=== PATIENT | male | born 1970 | race Caucasian/White ===

== ENCOUNTER 2016-07-05 19:20 | Emergency (ER) | payer OTHER ==
[~2016-07-05] VITALS: Ht 172.7 cm; Wt 112.0 kg
[~2016-07-05 19:20] MED LIST: ALPR1TAB7 PO; IBUP-1542 PO; ONDA4TAB14 PO; OXCA150T3 PO; QUET100T32 PO; TRAZ100T15 PO
[2016-07-05 19:35] VITALS: Ht 172.7 cm; Wt 112.0 kg
[2016-07-05] MEDS ORDERED: CIPR500T4 PO (19:51)
--- NOTE | 2016-07-05 19:56 | ERD ---
ER Documentation Chief Complaint Date/Time DATE: 07/05/16 TIME: 19:55 Chief Complaint urinary retention s/p surgery HPI This is a 45-year-old male who is here for urinary retention. The patient had colorectal surgery 2 days ago he has no abdominal pain or fever he says is having a difficult time urinating because of how much pain medicine he is taking. He says he is getting some urine out but has to push hard. No back pain no vomiting no diarrhea no fever no headache chest pain shortness of breath ROS All systems reviewed and are negative except as per history of present illness. Medications Home Meds Active Scripts Ciprofloxacin Hcl* (Ciprofloxacin Hcl*) 500 Mg Tablet, 500 MG PO BID for 3 Days , TAB Prov:KHLOE AVILES DO 07/05/16 Ondansetron (Ondansetron Odt) 4 Mg Tab.rapdis, 4 MG PO Q6H Y for NAUSEA AND/OR VOMITING, #30 TAB Prov:WAQAS MALDONADO MD 01/30/16 Ibuprofen* (Motrin*) 600 Mg Tab, 600 MG PO Q6H Y for PAIN AND OR ELEVATED TEMP, #30 TAB Prov:WAQAS MALDONADO MD 01/30/16 Reported Medications Quetiapine Fumarate* (Quetiapine Fumarate*) 100 Mg Tablet, 750 MG PO HS, TAB 01/30/16 Oxcarbazepine* (Trileptal*) 150 Mg Tablet, 450 MG PO BID, TAB 01/30/16 Alprazolam* (Alprazolam*) 1 Mg Tablet, 2 MG PO TID Y for ANXIETY, TAB 01/30/16 Trazodone Hcl* (Trazodone Hcl*) 100 Mg Tablet, 400 MG PO QHS, #30 TAB 09/16/15 Allergies Allergies: Coded Allergies: No Known Allergy (Unverified , 09/16/15) PMhx/Soc History of Surgery: Yes (Appy,Hemorrhoidectomy, colorectal sx) Anesthesia Reaction: No Hx Neurological Disorder: No Hx Respiratory Disorders: No Hx Cardiac Disorders: No Hx Psychiatric Problems: Yes (Manic-Depressive D/O;Anxiety) Hx Miscellaneous Medical Probl: Yes (Hemorrhoids) Hx Alcohol Use: No Hx Substance Use: No Hx Tobacco Use: Yes (>1 pack/day) Smoking Status: Current every day smoker FmHx Family History: No coronary disease Physical Exam Vitals Vital Signs Date Time Temp Pulse Resp B/P Pulse Ox O2 Delivery O2 Flow Rate FiO2 07/05/16 19:35 98.8 76 20 127/81 94 Physical Exam Const: Well-developed, well-nourished Head: Atraumatic, normocephalic Eyes: Normal Conjunctiva, PERRLA, EOMI, normal sclera, no nystagmus ENT: Normal External Ears, Nose and Mouth, moist mucus membranes. Neck: Full range of motion. No meningismus, no lymphadenopathy. Resp: Clear to auscultation bilaterally, no wheezing, rhonchi, rales Cardio: Regular rate and rhythm, no murmurs, S1 S2 present Abd: Soft, mild suprapubic fullness and tenderness, non distended. Normal bowel sounds, no guarding or rebound, no pulsitile abdominal masses or bruits Skin: No petechiae or rashes, no ecchymosis , no maculopapular rash Back: No midline or flank tenderness Ext: No cyanosis, or edema, FROM x 4, normal inspection, neurovascularly intact x 4 Neur: Awake and alert, STR 5/5 x 4, sensation intact x 4, no focal findings, cerebellum intact Psych: Normal Mood and Affect Procedures/MDM Menjivar catheter placed with leg bag Departure Diagnosis: Primary Impression: Retention of urine Condition: Stable Patient Instructions: Menjivar Catheter, Care, Urinary Retention, Male Referrals: DOCTOR,NOT ON STAFF (PCP) Additional Instructions: HAVE MENJIVAR REMOVED IN 2-3 DAYS KHLOE AVILES DO Jul 05, 2016 19:56
[2016-07-07] MEDS ORDERED: QUET300T18 PO (13:13)
[2016-07-07] MEDS ORDERED: TRAZ300T15 PO (13:14)
[2016-07-07] MEDS ORDERED: HYDR25SU23 PR (14:30)
[2016-07-07] MEDS ORDERED: HYDR-902 PO (14:30)
== END 2016-07-06 00:30 | disposition home or self-care (01) ==
LOC: FTE 19:20
DX: R33.9 Retention of urine, unspecified (principal); F17.210 Nicotine dependence, cigarettes, uncomplicated
CPT/HCPCS: 51702; Z7502

== ENCOUNTER 2016-07-07 10:50 | Emergency (ER) | payer OTHER ==
[~2016-07-07] VITALS: Ht 172.7 cm; Wt 120.0 kg
[~2016-07-07 10:50] MED LIST changes: +CIPR500T4 PO
[2016-07-07 11:11] VITALS: Ht 172.7 cm; Wt 120.0 kg
[2016-07-07] MEDS ORDERED: ONDANSETRON 4 MG INJ IV STA (12:00)
[2016-07-07] MEDS ORDERED: HYDROmorphONE 1 MG/ML SYG IV STA ×2 (12:00→13:01)
[2016-07-07 12:18] LABS: ADD SCAN DIFF NO
[2016-07-07 12:22] LABS: BASOPHILS % 0.4 % (0.0-2.0); EOSINOPHILS # 0.6 10^3/ul (0.0-0.5); EOSINOPHILS % 8.9 % (0.0-7.0); HEMATOCRIT 33.3 % (42.0-52.0); HEMOGLOBIN 11.1 g/dl (14.0-18.0); LYMPHOCYTES % 14.1 % (15.0-51.0); MEAN CORPUSCULAR HEMOGLOBIN 29.1 pg (29.0-33.0); MEAN CORPUSCULAR HGB CONC 33.3 g/dl (32.0-37.0); MEAN CORPUSCULAR VOLUME 87.2 fl (82.0-101.0); MEAN PLATELET VOLUME 10.7 fl (7.4-10.4); MONOCYTE # 0.6 10^3/ul (0.3-0.9); MONOCYTES % 8.2 % (0.0-11.0); NEUTROPHIL # 4.7 10^3/ul (1.6-7.5); PLATELET COUNT 237 10^3/UL (140-415); RED BLOOD COUNT 3.82 10^6/ul (4.70-6.10); RED CELL DISTRIBUTION WIDTH 14.5 % (11.5-14.5); WHITE BLOOD COUNT 6.9 10^3/ul (4.8-10.8)
[2016-07-07 12:37] LABS: ALBUMIN 3.8 g/dl (3.3-4.9); ALBUMIN/GLOBULIN RATIO 1.26; CALCIUM 8.6 mg/dl (8.4-10.2); CREATININE 0.99 mg/dl (0.61-1.24); TOTAL PROTEIN 6.8 g/dl (6.1-8.1)
[2016-07-07] MEDS ORDERED: QUET300T18 PO (13:13)
[2016-07-07] MEDS ORDERED: TRAZ300T15 PO (13:14)
[2016-07-07] MEDS ORDERED: IOHEXOL 300MG/ML 150 ML BTL ONE (13:22)
[2016-07-07] MEDS ORDERED: SOD CHLORIDE 0.9% 100 ML ONE (13:22)
--- NOTE | 2016-07-07 14:00 | RADRPT ---
PROCEDURE: CT Abdomen and Pelvis with contrast. CLINICAL INDICATION: Abdomen and pelvis pain. TECHNIQUE: CT scan of the abdomen and pelvis with contrast was performed. The patient was scanned following the uncomplicated intravenous administration of 100 cc of Omnipaque-300. Coronal and sag ittal reformatted images were obtained from the axial source images. Images were reviewed on a high- resolution PACS workstation. Total exam DLP is 1648.13 mGy-cm. CTDIvol is 23.15 mGy. One or more of the following dose reduction techniques were used: Automated exposure control, adjustment of the mA and/or kV according to patient size, use of iterative reconstruction technique. COMPARISON: Noncontrast CT scan of the abdomen and pelvis dated 01/30/2016 which demonstrated fatt y metamorphosis of the liver and no other abnormality. FINDINGS: The lung bases are normal. There is no pleural effusion. The liver is normal in size and diffusely decreased attenuation consistent with fatty metamorphosis. There is no focal hepatic lesion. The gallbladder and bile ducts are normal. The spleen is normal in size. There is no focal splenic lesion. Both adrenals are normal with no enlargement or mass. The pancreas is unremarkable with no mass or evidence of pancreatitis. Both kidneys demonstrate normal contrast enhancement. There is no renal mass or hydronephrosis. The abdominal aorta is not dilated. There is no retroperitoneal lymphadenopathy or mass. There is no pelvic lymphadenopathy or mass. There is a Lewis catheter in the urinary bladder. The periappendiceal region is unremarkable with no evidence of appendicitis. The bowel and mesentery are normal. A small amount of free fluid is present in the pelvis. There is no free air. The osseous structures are unremarkable with no fracture or lytic lesion. IMPRESSION: 1. Lewis catheter in the bladder. 2. Small amount of free fluid in the pelvis, nonspecific. Clinical correlation and follow-up advis ed. 3. Otherwise normal contrast enhanced CT scan of the abdomen and pelvis. RPTAT: QQ .Jerry Arellano MD, MD Date Time Electronically viewed and signed by .Jerry Arellano MD, on 07/07/2016 14:00 .R/
[2016-07-07 14:11] VITALS: BP 126/70; PULSE 68; RESP 18; TEMP 98.2
[2016-07-07] MEDS ORDERED: HYDR-902 PO (14:30)
[2016-07-07] MEDS ORDERED: HYDR25SU23 PR (14:30)
--- NOTE | 2016-07-07 14:46 | ERD ---
ER Documentation Chief Complaint Date/Time DATE: 07/07/16 TIME: 14:42 Chief Complaint S/P RECTAL SURGERY,SEVERE RECTAL PAIN.MENJIVAR CATH PROBLEM HPI This is a 45-year-old male who had anal fissure surgery along with a hemorrhoidectomy done 4 days ago. He was seen here by me 2 days ago for urinary retention and a Menjivar catheter was placed. Patient is here because his anus is hurting and burning and he says he is out of pain medication. She has no bleeding no fever no abdominal pain. The patient is passing gas but has not had a bowel movement yet. Is complaining of sharp and burning pain to the anus ROS All systems reviewed and are negative except as per history of present illness. Medications Home Meds Active Scripts Hydrocortisone Acetate (Anusol-Hc) 25 Mg Supp.rect, 1 SUPP NE BID, #12 SUPP.RECT Prov:KHLOE AVILES DO 07/07/16 Hydrocodone/Acetaminophen ([place] 10-325 Tablet) 1 Each Tablet, 1 TAB PO Q6H Y for PAIN, #20 TAB Prov:KHLOE AVILES DO 07/07/16 Ciprofloxacin Hcl* (Ciprofloxacin Hcl*) 500 Mg Tablet, 500 MG PO BID for 3 Days , TAB Prov:KHLOE AVILES DO 07/05/16 Ondansetron (Ondansetron Odt) 4 Mg Tab.rapdis, 4 MG PO Q6H Y for NAUSEA AND/OR VOMITING, #30 TAB Prov:WAQAS MALDONADO MD 01/30/16 Ibuprofen* (Motrin*) 600 Mg Tab, 600 MG PO Q6H Y for PAIN AND OR ELEVATED TEMP, #30 TAB Prov:WAQAS MALDONADO MD 01/30/16 Reported Medications Trazodone Hcl* (Trazodone Hcl*) 300 Mg Tablet, 300 MG PO QHS, #30 TAB 07/07/16 Quetiapine Fumarate* (Quetiapine Fumarate*) 300 Mg Tablet, 600 MG PO QHS, TAB 07/07/16 Oxcarbazepine* (Trileptal*) 150 Mg Tablet, 450 MG PO BID, TAB 01/30/16 Alprazolam* (Alprazolam*) 1 Mg Tablet, 2 MG PO TID Y for ANXIETY, TAB 01/30/16 Discontinued Reported Medications Quetiapine Fumarate* (Quetiapine Fumarate*) 100 Mg Tablet, 750 MG PO HS, TAB 01/30/16 Trazodone Hcl* (Trazodone Hcl*) 100 Mg Tablet, 400 MG PO QHS, #30 TAB 09/16/15 Allergies Allergies: Coded Allergies: No Known Allergy (Unverified , 07/07/16) PMhx/Soc History of Surgery: Yes (Appy,Hemorrhoidectomy, colorectal sx) Anesthesia Reaction: No Hx Neurological Disorder: No Hx Respiratory Disorders: No Hx Cardiac Disorders: No Hx Psychiatric Problems: Yes (Manic-Depressive D/O;Anxiety) Hx Miscellaneous Medical Probl: Yes (Hemorrhoids) Hx Alcohol Use: No Hx Substance Use: No Hx Tobacco Use: Yes (>1 pack/day) Smoking Status: Current every day smoker FmHx Family History: No coronary disease Physical Exam Vitals Vital Signs Date Time Temp Pulse Resp B/P Pulse Ox O2 Delivery O2 Flow Rate FiO2 07/07/16 11:11 98.2 78 18 131/76 98 Physical Exam Const: Well-developed, well-nourished Head: Atraumatic, normocephalic Eyes: Normal Conjunctiva, PERRLA, EOMI, normal sclera, no nystagmus ENT: Normal External Ears, Nose and Mouth, moist mucus membranes. Neck: Full range of motion. No meningismus, no lymphadenopathy. Resp: Clear to auscultation bilaterally, no wheezing, rhonchi, rales Cardio: Regular rate and rhythm, no murmurs, S1 S2 present Abd: Soft, non tender x 4, non distended. Normal bowel sounds, no guarding or rebound, no pulsitile abdominal masses or bruits, anus has no hemorrhoid no erythema there is a surgical repair of the fissure which is clean dry and intact there is no bleeding no sign of cellulitis Skin: No petechiae or rashes, no ecchymosis , no maculopapular rash Back: No midline or flank tenderness Ext: No cyanosis, or edema, FROM x 4, normal inspection, neurovascularly intact x 4 Neur: Awake and alert, STR 5/5 x 4, sensation intact x 4, no focal findings, cerebellum intact Psych: Normal Mood and Affect Result Diagram: 07/07/16 1212 07/07/16 1212 Results 24 hrs Laboratory Tests Test 07/07/16 12:12 White Blood Count 6.910^3/ul Red Blood Count 3.8210^6/ul Hemoglobin 11.1g/dl Hematocrit 33.3% Mean Corpuscular Volume 87.2fl Mean Corpuscular Hemoglobin 29.1pg Mean Corpuscular Hemoglobin Concent 33.3g/dl Red Cell Distribution Width 14.5% Platelet Count 88332^3/UL Mean Platelet Volume 10.7fl Neutrophils % 68.0% Lymphocytes % 14.1% Monocytes % 8.2% Eosinophils % 8.9% Basophils % 0.4% Nucleated Red Blood Cells % 0.0/100WBC Neutrophils # 4.710^3/ul Lymphocytes # 1.010^3/ul Monocytes # 0.610^3/ul Eosinophils # 0.610^3/ul Basophils # 0.010^3/ul Nucleated Red Blood Cells # 0.010^3/ul Sodium Level 137mmol/L Potassium Level 4.0mmol/L Chloride Level 104mmol/L Carbon Dioxide Level 27mmol/L Anion Gap 10 Blood Urea Nitrogen 5mg/dl Creatinine 0.99mg/dl Glucose Level 82mg/dl Calcium Level 8.6mg/dl Total Bilirubin 0.0mg/dl Direct Bilirubin 0.00mg/dl Indirect Bilirubin 0.0mg/dl Aspartate Amino Transf (AST/SGOT) 21IU/L Alanine Aminotransferase (ALT/SGPT) 29IU/L Alkaline Phosphatase 121IU/L Total Protein 6.8g/dl Albumin 3.8g/dl Globulin 3.00g/dl Albumin/Globulin Ratio 1.26 Current Medications Medications (Trade) Dose Ordered Sig/Karl Route PRN Reason Start Time Stop Time Status Last Admin Dose Admin Hydromorphone HCl (Dilaudid) 2 mg ONCE STAT IV 07/07/16 12:00 07/07/16 12:02 DC 07/07/16 12:08 Ondansetron HCl (Zofran Inj) 4 mg ONCE STAT IV 07/07/16 12:00 07/07/16 12:02 DC 07/07/16 12:09 Hydromorphone HCl (Dilaudid) 1 mg ONCE STAT IV 07/07/16 13:01 07/07/16 13:02 DC 07/07/16 13:09 IV Flush 10 ml 10 ml STK-MED ONCE .ROUTE 07/07/16 13:22 07/07/16 13:23 DC 07/07/16 14:10 Sodium Chloride (NS) 100 ml @ ud STK-MED ONCE .ROUTE 07/07/16 13:22 07/07/16 13:23 DC 07/07/16 14:10 Iohexol (Omnipaque 300mg/ ml) 150 ml STK-MED ONCE .ROUTE 07/07/16 13:22 07/07/16 13:23 DC 07/07/16 14:11 Procedures/MDM PROCEDURE: CT Abdomen and Pelvis with contrast. CLINICAL INDICATION: Abdomen and pelvis pain. TECHNIQUE: CT scan of the abdomen and pelvis with contrast was performed. The patient was scanned following the uncomplicated intravenous administration of 100 cc of Omnipaque-300. Coronal and sagittal reformatted images were obtained from the axial source images. Images were reviewed on a high- resolution PACS workstation. Total exam DLP is 1648.13 mGy-cm. CTDIvol is 23.15 mGy. One or more of the following dose reduction techniques were used: Automated exposure control, adjustment of the mA and/or kV according to patient size, use of iterative reconstruction technique. COMPARISON: Noncontrast CT scan of the abdomen and pelvis dated 01/30/2016 which demonstrated fatty metamorphosis of the liver and no other abnormality. FINDINGS: The lung bases are normal. There is no pleural effusion. The liver is normal in size and diffusely decreased attenuation consistent with fatty metamorphosis. There is no focal hepatic lesion. The gallbladder and bile ducts are normal. The spleen is normal in size. There is no focal splenic lesion. Both adrenals are normal with no enlargement or mass. The pancreas is unremarkable with no mass or evidence of pancreatitis. Both kidneys demonstrate normal contrast enhancement. There is no renal mass or hydronephrosis. The abdominal aorta is not dilated. There is no retroperitoneal lymphadenopathy or mass. There is no pelvic lymphadenopathy or mass. There is a Menjivar catheter in the urinary bladder. The periappendiceal region is unremarkable with no evidence of appendicitis. The bowel and mesentery are normal. A small amount of free fluid is present in the pelvis. There is no free air. The osseous structures are unremarkable with no fracture or lytic lesion. IMPRESSION: 1. Menjivar catheter in the bladder. 2. Small amount of free fluid in the pelvis, nonspecific. Clinical correlation and follow-up advised. 3. Otherwise normal contrast enhanced CT scan of the abdomen and pelvis. RPTAT: QQ .Jerry Arellano MD, Date Time Electronically viewed and signed by .Jerry Arellano MD, on 07/07/2016 14:00 .R/ CC: KHLOE AVILES DO Patient shows no sign of superficial abscess or perianal infection or perirectal abscess Will DC the patient's Menjivra catheter We will give the patient some Anusol suppositories as well as topical viscous lidocaine and refill of [place]. Advised him to take magnesium citrate [id number] to help him have a watery bowel movement, otherwise she is going to have an issue with tearing of the surgical suture Departure Diagnosis: Primary Impression: Post-op pain Additional Impression: Anal fissure Condition: Stable Patient Instructions: Anal Fissure (Child), Post Op Wound Check, General, Post Op Wound Check, Pain KHLOE AVILES DO Jul 07, 2016 14:46
== END 2016-07-07 15:15 | disposition home or self-care (01) ==
LOC: E/R 10:50
DX: G89.18 Other acute postprocedural pain (principal); K60.2 Anal fissure, unspecified; F17.210 Nicotine dependence, cigarettes, uncomplicated
CPT/HCPCS: 74177; 80053; 85025; J1170; J2405; Q9967; Z7610; 36415; 96374; 96375; 96376

== ENCOUNTER 2016-07-13 13:44 | Emergency (ER) | payer OTHER ==
[~2016-07-13] VITALS: Ht 170.2 cm; Wt 80.0 kg
[~2016-07-13 13:44] MED LIST changes: +HYDR-902 PO; +HYDR25SU23 PR; -QUET100T32 PO; +QUET300T18 PO; -TRAZ100T15 PO; +TRAZ300T15 PO
[2016-07-13 13:48] VITALS: Ht 170.2 cm; Wt 80.0 kg
[2016-07-13] MEDS ORDERED: SOD CHLORIDE 0.9% 1,000 ML IV STA (18:42)
[2016-07-13] MEDS ORDERED: ONDANSETRON 4 MG INJ IV STA (18:42)
[2016-07-13] MEDS ORDERED: morphine 4 MG/ML VIAL IV STA (18:42)
[2016-07-13 19:04] LABS: ADD SCAN DIFF NO
[2016-07-13 19:07] LABS: BASOPHIL # 0.1 10^3/ul (0.0-0.1); BASOPHILS % 1.2 % (0.0-2.0); EOSINOPHILS # 0.3 10^3/ul (0.0-0.5); EOSINOPHILS % 5.6 % (0.0-7.0); HEMATOCRIT 35.4 % (42.0-52.0); HEMOGLOBIN 11.8 g/dl (14.0-18.0); LYMPHOCYTES % 18.8 % (15.0-51.0); MEAN CORPUSCULAR HEMOGLOBIN 28.9 pg (29.0-33.0); MEAN CORPUSCULAR HGB CONC 33.3 g/dl (32.0-37.0); MEAN CORPUSCULAR VOLUME 86.6 fl (82.0-101.0); MEAN PLATELET VOLUME 11.1 fl (7.4-10.4); MONOCYTE # 0.7 10^3/ul (0.3-0.9); MONOCYTES % 12.8 % (0.0-11.0); NEUTROPHIL # 3.2 10^3/ul (1.6-7.5); NEUTROPHILS % 61.2 % (39.0-77.0); PLATELET COUNT 242 10^3/UL (140-415); RED BLOOD COUNT 4.09 10^6/ul (4.70-6.10); RED CELL DISTRIBUTION WIDTH 14.5 % (11.5-14.5); WHITE BLOOD COUNT 5.2 10^3/ul (4.8-10.8)
[2016-07-13 19:21] LABS: ALBUMIN 4.3 g/dl (3.3-4.9); CHLORIDE 102 mmol/L (97-110)
[2016-07-13 19:22] LABS: POTASSIUM 3.8 mmol/L (3.5-5.1); SODIUM 137 mmol/L (135-144)
[2016-07-13 19:23] LABS: PARTIAL THROMBOPLASTIN TIME 23.6 Sec (25.0-35.0)
[2016-07-13 19:24] LABS: ALBUMIN/GLOBULIN RATIO 1.38; ANION GAP 15 (8-16); ASPARTATE AMINO TRANSFERASE 23 IU/L (15-46); CARBON DIOXIDE 24 mmol/L (21-31); CREATININE 0.99 mg/dl (0.61-1.24); TOTAL PROTEIN 7.4 g/dl (6.1-8.1)
[2016-07-13 19:25] LABS: ALANINE AMINOTRANSFERASE 31 IU/L (13-69); ALKALINE PHOSPHATASE 108 IU/L (42-121); BLOOD UREA NITROGEN 12 mg/dl (7-20); CALCIUM 8.8 mg/dl (8.4-10.2); GLUCOSE 87 mg/dl (70-220)
[2016-07-13 19:27] LABS: INR 0.83; PROTIME 11.4 Sec (12.2-14.2); PT RATIO 0.9
--- NOTE | 2016-07-13 19:51 | RADRPT ---
PROCEDURE: CT brain without contrast CLINICAL INDICATION: Syncope TECHNIQUE: A CT of the brain was performed utilizing axial sections from the skull base through th e vertex without contrast. Sagittal and coronal images were also reformatted. The exam CTDIvol = 44. 68 mGy and DLP = 810.25 mGy-cm. COMPARISON: None available FINDINGS: No acute intracranial hemorrhage is identified. There is no mass effect or midline shift. No extra -axial fluid collection is seen. The ventricles and sulci are within normal limits for size and con figuration. The density of the brain is within normal limits. Calderón-white differentiation is preser shalini. The osseous structures are unremarkable for acute abnormality. Chronic appearing mucosal thickening of the right greater than left ethmoid air cells and maxillary sinuses as well as the right frontal sinus. The sphenoid sinuses and mastoid air cells appear clear. Or old left medial orbital wall b lowout fracture versus congenital dehiscence is present RPTAT:HJJR IMPRESSION: 1. No evidence of acute intracranial abnormality or mass effect. 2. Chronic paranasal sinus disease. 3. Likely old left medial orbital wall blowout fracture versus congenital dehiscence. Physician Leon Date Time Electronically viewed and signed by Physician Leon on 07/13/2016 19:51 /
[2016-07-13 19:59] LABS: TROPONIN-I < 0.012 ng/ml (0.00-0.12)
[2016-07-13 21:36] LABS: ADD UMIC NO; URINE BILIRUBIN (Dip) NEGATIVE (NEGATIVE); URINE BLOOD (Dip) NEGATIVE (NEGATIVE); URINE COLOR LT. YELLOW (YELLOW); URINE GLUCOSE (Dip) NEGATIVE (NEGATIVE); URINE KETONES (Dip) NEGATIVE (NEGATIVE); URINE LEUKOCYTE ESTERASE (Dip) NEGATIVE (NEGATIVE); URINE NITRITE (Dip) NEGATIVE (NEGATIVE); URINE TOTAL PROTEIN (Dip) NEGATIVE (NEGATIVE); URINE UROBILINOGEN (Dip) 0.2 E.U./dL (0.1-1.0)
[2016-07-13 21:40] VITALS: BP 132/77; PULSE 83; RESP 18; TEMP 98.1
[2016-07-13] MEDS ORDERED: KETOROLAC 30 MG INJ IV STA (21:48)
[2016-07-13] MEDS ORDERED: HYDR-906 PO (21:51)
--- NOTE | 2016-07-13 22:00 | ERD ---
ER Documentation Chief Complaint Date/Time DATE: 07/13/16 TIME: 21:55 Chief Complaint blurry vision, falling at home since yesterday HPI This is a 45-year-old male who states he has anal fissure surgery along with a hemorrhoidectomy done 7 days ago. The patient indicates he had been placed on [place] which improved his rectal pain. Indicates he ran out of his [place] and is requesting medication refill. He denies any constipation states he has had no rectal bleeding. The patient also indicates that due to the pain he is felt unsteady in his gait but denies a headache. He states he noticed some blurry vision that lasted for several minutes just prior to arrival but spontaneously resolved he does not wear glasses or contacts. He denies any neck pain. He has had no fevers no shaking or chills. He has no shortness of breath at rest or exertion. He denies any chest pain or pressure that radiates to the neck arm back or jaw. ROS All systems reviewed and are negative except as per history of present illness. Medications Home Meds Active Scripts Hydrocodone/Acetaminophen ([place] 5-325 Tablet) 1 Each Tablet, 1 TAB PO Q6H Y for PAIN, #20 TAB Prov:BLAKE RICARDO 07/13/16 Reported Medications Trazodone Hcl* (Trazodone Hcl*) 300 Mg Tablet, 300 MG PO QHS, #30 TAB 07/07/16 Quetiapine Fumarate* (Quetiapine Fumarate*) 300 Mg Tablet, 600 MG PO QHS, TAB 07/07/16 Oxcarbazepine* (Trileptal*) 150 Mg Tablet, 450 MG PO BID, TAB 01/30/16 Alprazolam* (Alprazolam*) 1 Mg Tablet, 2 MG PO TID Y for ANXIETY, TAB 01/30/16 Discontinued Reported Medications Quetiapine Fumarate* (Quetiapine Fumarate*) 100 Mg Tablet, 750 MG PO HS, TAB 01/30/16 Trazodone Hcl* (Trazodone Hcl*) 100 Mg Tablet, 400 MG PO QHS, #30 TAB 09/16/15 Discontinued Scripts Hydrocortisone Acetate (Anusol-Hc) 25 Mg Supp.rect, 1 SUPP TN BID, #12 SUPP.RECT Prov:KHLOE AVILES DO 07/07/16 Hydrocodone/Acetaminophen ([place] 10-325 Tablet) 1 Each Tablet, 1 TAB PO Q6H Y for PAIN, #20 TAB Prov:TRACIKHLOE ThompsonYanni DO 07/07/16 Ciprofloxacin Hcl* (Ciprofloxacin Hcl*) 500 Mg Tablet, 500 MG PO BID for 3 Days , TAB Prov:KHLOE AVILES DO 07/05/16 Ondansetron (Ondansetron Odt) 4 Mg Tab.rapdis, 4 MG PO Q6H Y for NAUSEA AND/OR VOMITING, #30 TAB Prov:WAQAS MALDONADO MD 01/30/16 Ibuprofen* (Motrin*) 600 Mg Tab, 600 MG PO Q6H Y for PAIN AND OR ELEVATED TEMP, #30 TAB Prov:WAQAS MALDONADO MD 01/30/16 Allergies Allergies: Coded Allergies: No Known Allergy (Unverified , 07/13/16) PMhx/Soc History of Surgery: Yes (Appy,Hemorrhoidectomy, colorectal sx) Anesthesia Reaction: No Hx Neurological Disorder: No Hx Respiratory Disorders: No Hx Cardiac Disorders: Yes ('somethign wrong with my heart' cant articulate) Hx Psychiatric Problems: Yes (Manic-Depressive D/O;bipolar, Anxiety) Hx Miscellaneous Medical Probl: Yes (Hemorrhoids, cholesterol.) Hx Alcohol Use: No Hx Substance Use: No Hx Tobacco Use: Yes (>1 pack/day) Smoking Status: Current every day smoker Physical Exam Vitals Vital Signs Date Time Temp Pulse Resp B/P Pulse Ox O2 Delivery O2 Flow Rate FiO2 07/13/16 21:40 98.1 83 18 132/77 97 Room Air 07/13/16 20:00 69 15 114/78 95 Room Air 07/13/16 18:36 98.0 77 20 126/90 97 Room Air 07/13/16 13:48 97.8 78 20 116/51 97 Physical Exam Constitutional:Well-developed. Well-nourished. HEENT:Normocephalic. Atraumatic.Pupils were equal round reactive to light. Moist mucous membranes.No tonsillar exudates. Fundoscopy exam shows sharp optic disks bilaterally and venous pulsations are present. Neck: No nuchal rigidity. No lymphadenopathy. No posterior cervical spine tenderness or step-offs. Respiratory: Not using accessory muscles of respiration.Lungs were clear to auscultation bilaterally. No rhonchi. No rales. No wheezing. Cardiovascular: Regular rate regular rhythm.No murmurs. No rubs were appreciated.S1, S2 normal. Distal pulses are palpable 2+ bilaterally. GI: Abdomen was soft. Nontender. Non Distended. No pulsatile abdominal masses or bruits. No rebound. No guarding. Bowel sounds were present and normal. Muscle skeletal: Full range of motion of both the upper and lower extremities bilaterally.Normal muscle tone.No assymetrical calf tenderness or swelling. RECTAL: External nonthrombosed hemorrhoids present at the 3 o'clock position and 6 o'clock position with sutures in place. Fecal occult blood test was negative. Skin: No petechia, no purpura. No lesions on the palms or the soles of the feet. No maculopapular rash. NEURO: Patient was alert, awake, orientated x3.No facial droop. Gait observed and normal with no ataxia.Speech had regular rate and rhythm. No focal neurological deficits. Result Diagram: 07/13/16184907/[id number]/161849 Results 24 hrs Laboratory Tests Test 07/13/16 18:50 07/13/16 21:20 White Blood Count 5.210^3/ul Red Blood Count 4.0910^6/ul Hemoglobin 11.8g/dl Hematocrit 35.4% Mean Corpuscular Volume 86.6fl Mean Corpuscular Hemoglobin 28.9pg Mean Corpuscular Hemoglobin Concent 33.3g/dl Red Cell Distribution Width 14.5% Platelet Count 06172^3/UL Mean Platelet Volume 11.1fl Neutrophils % 61.2% Lymphocytes % 18.8% Monocytes % 12.8% Eosinophils % 5.6% Basophils % 1.2% Nucleated Red Blood Cells % 0.0/100WBC Neutrophils # 3.210^3/ul Lymphocytes # 1.010^3/ul Monocytes # 0.710^3/ul Eosinophils # 0.310^3/ul Basophils # 0.110^3/ul Nucleated Red Blood Cells # 0.010^3/ul Prothrombin Time 11.4Sec Prothrombin Time Ratio 0.9 INR International Normalized Ratio 0.83 Activated Partial Thromboplast Time 23.6Sec Sodium Level 137mmol/L Potassium Level 3.8mmol/L Chloride Level 102mmol/L Carbon Dioxide Level 24mmol/L Anion Gap 15 Blood Urea Nitrogen 12mg/dl Creatinine 0.99mg/dl Glucose Level 87mg/dl Calcium Level 8.8mg/dl Total Bilirubin 0.0mg/dl Direct Bilirubin 0.00mg/dl Indirect Bilirubin 0.0mg/dl Aspartate Amino Transf (AST/SGOT) 23IU/L Alanine Aminotransferase (ALT/SGPT) 31IU/L Alkaline Phosphatase 108IU/L Troponin I < 0.012ng/ml Total Protein 7.4g/dl Albumin 4.3g/dl Globulin 3.10g/dl Albumin/Globulin Ratio 1.38 Urine Color LT. YELLOW Urine Clarity CLEAR Urine pH 6.5 Urine Specific [place] 1.015 Urine Ketones NEGATIVE Urine Nitrite NEGATIVE Urine Bilirubin NEGATIVE Urine Urobilinogen 0.2 E.U./dL Urine Leukocyte Esterase NEGATIVE Urine Hemoglobin NEGATIVE Urine Glucose NEGATIVE% Urine Total Protein NEGATIVE Current Medications Medications (Trade) Dose Ordered Sig/Karl Route PRN Reason Start Time Stop Time Status Last Admin Dose Admin Sodium Chloride (NS) 1,000 ml @ 1,000 mls/hr Q1H STAT IV 07/13/16 18:42 07/13/16 19:41 DC 07/13/16 19:01 Morphine Sulfate (morphine) 4 mg ONCE STAT IV 07/13/16 18:42 07/13/16 18:43 DC 07/13/16 19:00 Ondansetron HCl (Zofran Inj) 4 mg ONCE STAT IV 07/13/16 18:42 07/13/16 18:43 DC 07/13/16 19:00 Ketorolac Tromethamine (Toradol) 30 mg ONCE STAT IV 07/13/16 21:48 07/13/16 21:49 DC Procedures/[facility] This patient presented to the emergency department for postoperative pain. He had no physical exam findings to suggest rectal hemorrhage. The patient was very adamant about requesting analgesic medication therefore was given IV morphine as well as Toradol. I obtained ancillary laboratory work and there is no electrolyte abnormalities and no evidence of leukocytosis. Also obtained a CT scan of the head given that the patient was complaining of blurry vision and there is no evidence of acute intracerebral hemorrhage mass-effect or midline shift. 12 Lead EKG tracing ordered and reviewed by myself showed: Normal sinus rhythm of 70 bpm and no arrhythmia. TN interval normal. QRS duration normal. No ST segment elevation No ST segment depression. No changes consistent with acute ischemia. Observation Note: Time: 4 hours Family Hx: No Hypertension Evaluation: Multiple exams showed improving symptoms and no evidence of postoperative hemorrhage. Departure Diagnosis: Primary Impression: Postoperative pain Additional Impressions: External hemorrhoids Medication refill Condition: Fair Patient Instructions: Hemorrhoids [facility] ([facility]P) BLAKE RICARDO Jul 13, 2016 22:00
== END 2016-07-13 21:50 | disposition home or self-care (01) ==
LOC: E/R 13:44
DX: G89.18 Other acute postprocedural pain (principal); K64.4 Residual hemorrhoidal skin tags; F17.210 Nicotine dependence, cigarettes, uncomplicated; R55 Syncope and collapse; Z76.0 Encounter for issue of repeat prescription
CPT/HCPCS: 70450; 80053; 81003; 84484; 85025; 85610; 85730; 93005; J1885; J2270; J2405; J7030; 36415; 96374; 96375

== ENCOUNTER 2016-07-26 09:27 | Emergency (ER) | payer OTHER ==
[~2016-07-26] VITALS: Wt 105.0 kg
[~2016-07-26 09:27] MED LIST changes: -CIPR500T4 PO; -HYDR-902 PO; +HYDR-906 PO; -HYDR25SU23 PR; -IBUP-1542 PO; -ONDA4TAB14 PO
--- NOTE | 2016-07-26 11:41 | RADRPT ---
PROCEDURE: XR Chest. CLINICAL INDICATION: Altered mental status. TECHNIQUE: PA and Lateral views of the chest were obtained. COMPARISON: Chest x-ray January 30, 2016. FINDINGS: The soft tissues are normal. There are degenerative osteophytes in the lower thoracic spine. The h eart is enlarged. The cardiomediastinal silhouette and hilar structures are normal. The pulmonary v asculature is normal. There is a left-sided aorta. The lungs are clear. The costophrenic angles are normal. IMPRESSION: 1. Mild cardiomegaly with no evidence of active cardiopulmonary disease. no significant changes not ed when compared to 01/30/2016. RPTAT:AAJJ Physician Kelly Date Time Electronically viewed and signed by Yoel Tucker Physician on 07/26/2016 11:40 GALINA/
--- NOTE | 2016-07-26 11:43 | RADRPT ---
PROCEDURE: XR Abdomen. CLINICAL INDICATION: Abdominal Pain TECHNIQUE: AP abdomen x-ray. COMPARISON: None. FINDINGS: There is a nonspecific bowel gas pattern with no evidence of a mechanical bowel obstruction. Air is identified in the colon and small bowel. The bony elements are normal. No abnormal intra-abdominal mass or calcification is identified. IMPRESSION: 1. Unremarkable abdomen radiograph. RPTAT:AAJJ Physician Kelly Date Time Electronically viewed and signed by Yoel Tucker Physician on 07/26/2016 11:43 GALINA/
[2016-07-26 11:49] LABS: ADD UMIC NO; URINE BILIRUBIN (Dip) NEGATIVE (NEGATIVE); URINE BLOOD (Dip) NEGATIVE (NEGATIVE); URINE COLOR LT. YELLOW (YELLOW); URINE GLUCOSE (Dip) NEGATIVE (NEGATIVE); URINE KETONES (Dip) NEGATIVE (NEGATIVE); URINE LEUKOCYTE ESTERASE (Dip) NEGATIVE (NEGATIVE); URINE NITRITE (Dip) NEGATIVE (NEGATIVE); URINE TOTAL PROTEIN (Dip) NEGATIVE (NEGATIVE); URINE UROBILINOGEN (Dip) 0.2 E.U./dL (0.1-1.0)
[2016-07-26 12:18] LABS: ADD SCAN DIFF NO
[2016-07-26 12:34] LABS: BASOPHILS % 0.5 % (0.0-2.0); EOSINOPHILS # 0.1 10^3/ul (0.0-0.5); EOSINOPHILS % 1.3 % (0.0-7.0); HEMATOCRIT 43.1 % (42.0-52.0); HEMOGLOBIN 14.1 g/dl (14.0-18.0); LYMPHOCYTES # 1.3 10^3/ul (0.8-2.9); LYMPHOCYTES % 15.2 % (15.0-51.0); MEAN CORPUSCULAR HEMOGLOBIN 28.8 pg (29.0-33.0); MEAN CORPUSCULAR HGB CONC 32.7 g/dl (32.0-37.0); MEAN PLATELET VOLUME 11.6 fl (7.4-10.4); MONOCYTE # 0.7 10^3/ul (0.3-0.9); NEUTROPHIL # 6.1 10^3/ul (1.6-7.5); NEUTROPHILS % 73.9 % (39.0-77.0); PLATELET COUNT 279 10^3/UL (140-415); RED CELL DISTRIBUTION WIDTH 14.2 % (11.5-14.5); WHITE BLOOD COUNT 8.2 10^3/ul (4.8-10.8)
[2016-07-26 12:52] LABS: ALBUMIN 4.6 g/dl (3.3-4.9); ALBUMIN/GLOBULIN RATIO 1.31; BILIRUBIN,INDIRECT 0.2 mg/dl (0-1.1); BILIRUBIN,TOTAL 0.2 mg/dl (0.2-1.3); CALCIUM 9.4 mg/dl (8.4-10.2); CREATININE 0.96 mg/dl (0.61-1.24); POTASSIUM 4.4 mmol/L (3.5-5.1); TOTAL PROTEIN 8.1 g/dl (6.1-8.1)
[2016-07-26 12:57] LABS: ACETAMINOPHEN < 10.0 ug/ml (10.0-30.0); ETHANOL < 10.0 mg/dl; SALICYLATE < 1.0 mg/dl (5.0-30.0)
[2016-07-26 13:02] LABS: BENZODIAZEPINES Negative (NEGATIVE)
[2016-07-26 13:03] LABS: OPIATES Negative (NEGATIVE)
[2016-07-26 13:12] LABS: BARBITURATES Negative (NEGATIVE); CANNABINOIDS Positive (NEGATIVE); COCAINE Negative (NEGATIVE)
[2016-07-26] MEDS ORDERED: LORAZEPAM 2 MG INJ IV ONE (13:30)
--- NOTE | 2016-07-26 13:37 | RADRPT ---
PROCEDURE: CT Brain without contrast. CLINICAL INDICATION: Altered level of consciousness. TECHNIQUE: A CT of the brain without contrast was performed utilizing axial sections from the skul l base through the vertex. The patient was scanned without intravenous contrast enhancement. Sagitta l and coronal reformatted images were obtained using the data from the axial images. Total exam DLP is 720.23 mGy-cm. CTDIvol is 42.69 mGy. One or more of the following dose reduction techniques we re used: Automated exposure control, adjustment of the mA and/or kV according to patient size, use o f iterative reconstruction technique. COMPARISON: None available FINDINGS: There is normal ellis-white matter differentiation. The ventricles and cisterns are normal. There is no intracranial hemorrhage or space-occupying lesion. There is no skull fracture or lytic lesion. There is fluid and mucosal thickening in the right maxil torsten sinus. IMPRESSION: 1. Right maxillary sinus disease. 2. Otherwise normal noncontrast CT scan of the brain. 3. No intracranial hemorrhage. RPTAT: QQ .Jerry Arellano MD, MD Date Time Electronically viewed and signed by .Jerry Arellano MD, on 07/26/2016 13:37 .R/
[2016-07-26] MEDS ORDERED: NICOTINE (21 MG/24 HR) PATCH TRANSDERM ONE (14:00)
--- NOTE | 2016-07-26 14:22 | ERA ---
ER Documentation Chief Complaint Date/Time DATE: 07/26/16 TIME: 09:40 Chief Complaint more aloc per mother this am. no trauma. pt is alert with no active bleedin HPI 45-year-old male with history of bipolar disease noncompliant with medications, recent anal fissure surgery and subsequent ED visits for urinary retention brought to the ED by rescue ambulance for evaluation of altered mental status. History is limited due to the patient's physical condition and provided by his girlfriend who arrived several hours later. Patient has been noncompliant with his medications and recently has not been himself. He fell at home today. He has not been complaining of chest pain, abdominal pain or shortness of breath. No vomiting or diarrhea. Apparently yesterday he was urinating without difficulty. No fevers. Patient is unable to provide any other history and just lies on the gurney screaming. He was last seen in the ED 07/13 with chief complaint of blurred vision and falling at home. He had extensive evaluation including a CT of the brain that was negative and was discharged home with a diagnosis of postoperative pain. ROS All systems reviewed and are negative except as per history of present illness. Medications Home Meds Reported Medications Trazodone Hcl* (Trazodone Hcl*) 300 Mg Tablet, 300 MG PO QHS, #30 TAB 07/07/16 Quetiapine Fumarate* (Quetiapine Fumarate*) 300 Mg Tablet, 600 MG PO QHS, TAB 07/07/16 Oxcarbazepine* (Trileptal*) 150 Mg Tablet, 450 MG PO BID, TAB 01/30/16 Alprazolam* (Alprazolam*) 1 Mg Tablet, 2 MG PO TID Y for ANXIETY, TAB 01/30/16 Discontinued Scripts Hydrocodone/Acetaminophen ([place] 5-325 Tablet) 1 Each Tablet, 1 TAB PO Q6H Y for PAIN, #20 TAB Prov:BLAKE RICARDO 07/13/16 Allergies Allergies: Coded Allergies: No Known Allergy (Unverified , 07/26/16) PMhx/Soc Reviewed in chart. As per HPI. Medical and Surgical Hx: Unable to obtain History of Surgery: Yes ([place],Hemorrhoidectomy, colorectal sx) Anesthesia Reaction: No Hx Neurological Disorder: No Hx Respiratory Disorders: No Hx Cardiac Disorders: Yes ('somethign wrong with my heart' cant articulate) Hx Psychiatric Problems: Yes (Manic-Depressive D/O;bipolar, Anxiety) Hx Miscellaneous Medical Probl: Yes (Hemorrhoids, cholesterol.) Hx Alcohol Use: No Hx Substance Use: Yes (MJ) Hx Tobacco Use: Yes Smoking Status: Current every day smoker FmHx Unknown reviewed in chart. Physical Exam Vitals Vital Signs Date Time Temp Pulse Resp B/P Pulse Ox O2 Delivery O2 Flow Rate FiO2 07/26/16 16:45 85 15 130/109 99 Room Air 07/26/16 13:10 79 22 154/126 100 Room Air 07/26/16 12:56 84 17 159/104 100 Room Air 07/26/16 09:40 99.5 80 22 178/100 98 Physical Exam Const: Alert, agitated, moaning, uncooperative Head: Atraumatic Eyes: Normal Conjunctiva ENT: Normal External Ears, Nose and Mouth. Neck: Full range of motion. Nontender Resp: Clear to auscultation bilaterally Cardio: Regular rate and rhythm, no murmurs Abd: Soft, mild suprapubic tenderness and distention. Normal bowel sounds. No rebound or guarding. non distended. Normal bowel sounds Skin: No petechiae or rashes Back: No midline or flank tenderness Ext: No cyanosis, or edema Neur: Awake and alert. No facial droop. Moves all extremities with 5/5 strength. Psych: Uncooperative, agitated. Result Diagram: 07/26/16 1200 07/26/16 1200 Results 24 hrs Laboratory Tests Test 07/26/16 10:00 07/26/16 12:00 Urine Color LT. YELLOW Urine Clarity CLEAR Urine pH 6.5 Urine Specific [place] 1.010 Urine Ketones NEGATIVE Urine Nitrite NEGATIVE Urine Bilirubin NEGATIVE Urine Urobilinogen 0.2 E.U./dL Urine Leukocyte Esterase NEGATIVE Urine Hemoglobin NEGATIVE Urine Glucose NEGATIVE% Urine Total Protein NEGATIVE Urine Opiates Screen Negative Urine Barbiturates Negative Urine Amphetamines Screen Negative Urine Benzodiazepines Screen Negative Urine Cocaine Screen Negative Urine Cannabinoids Positive White Blood Count 8.210^3/ul Red Blood Count 4.9010^6/ul Hemoglobin 14.1g/dl Hematocrit 43.1% Mean Corpuscular Volume 88.0fl Mean Corpuscular Hemoglobin 28.8pg Mean Corpuscular Hemoglobin Concent 32.7g/dl Red Cell Distribution Width 14.2% Platelet Count 69575^3/UL Mean Platelet Volume 11.6fl Neutrophils % 73.9% Lymphocytes % 15.2% Monocytes % 9.0% Eosinophils % 1.3% Basophils % 0.5% Nucleated Red Blood Cells % 0.0/100WBC Neutrophils # 6.110^3/ul Lymphocytes # 1.310^3/ul Monocytes # 0.710^3/ul Eosinophils # 0.110^3/ul Basophils # 0.010^3/ul Nucleated Red Blood Cells # 0.010^3/ul Sodium Level 143mmol/L Potassium Level 4.4mmol/L Chloride Level 109mmol/L Carbon Dioxide Level 26mmol/L Anion Gap 12 Blood Urea Nitrogen 9mg/dl Creatinine 0.96mg/dl Glucose Level 107mg/dl Calcium Level 9.4mg/dl Total Bilirubin 0.2mg/dl Direct Bilirubin 0.00mg/dl Indirect Bilirubin 0.2mg/dl Aspartate Amino Transf (AST/SGOT) 58IU/L Alanine Aminotransferase (ALT/SGPT) 49IU/L Alkaline Phosphatase 116IU/L Total Protein 8.1g/dl Albumin 4.6g/dl Globulin 3.50g/dl Albumin/Globulin Ratio 1.31 Lipase 222U/L Thyroid Stimulating Hormone (TSH) 2.650MIU/L Salicylates Level < 1.0mg/dl Acetaminophen Level < 10.0ug/ml [place] Level 0.5mmol/L Ethyl Alcohol Level < 10.0mg/dl Current Medications Medications (Trade) Dose Ordered Sig/Karl Route PRN Reason Start Time Stop Time Status Last Admin Dose Admin Lorazepam (Ativan) 2 mg ONCE ONCE IV 07/26/16 13:30 07/26/16 13:31 DC 07/26/16 13:20 Nicotine (Nicoderm 21 Mg/ 24hr) 1 patch ONCE ONCE TRANSDERM 07/26/16 14:00 07/26/16 14:01 DC 07/26/16 14:00 Haloperidol (Haldol) 5 mg ONCE ONCE IM 07/26/16 14:30 07/26/16 14:31 DC 07/26/16 14:09 Haloperidol (Haldol) 5 mg ONCE ONCE IM 07/26/16 15:30 07/26/16 15:31 DC 5/7/17 15:18 Procedures/MDM DOCUMENTS REVIEWED: ED nurse, prior ED, prior MEDICAL DECISION MAKIN-year-old male with history of bipolar disease noncompliant with medications, recent anal fissure surgery and subsequent ED visits for urinary retention brought to the ED by rescue ambulance for evaluation of altered mental status. Patient with recurrent urinary and 1800 cc of urine were obtained after Lewis placement. No urinary tract infection or pyelonephritis. Patient with agitation required chemical restraint with Haldol 2 mg and Ativan 5 mg IM 2. Patient presents with symptomatology consistent with decompensation of previously diagnosed psychiatric disease likely secondary to noncompliance with medication. Based on history, physical exam and appropriate tests including CT of the brain, I appreciate no evidence of significant life threatening injury or illness that precludes psychiatric evaluation and hospitalization. There are no toxic, infectious, metabolic, DEAL[employer] ACCOUNT MANAGER or other unstable co-morbidities. Patient is thus medically cleared. In regards to the psychiatric complaints, this patient has clear evidence of high risk psychiatric symptoms with significant risk for decompensation and 5150 hold was recommended by the tele-psychiatry physician, Dr Howard. PMRT evaluation is pending. Counseled patient and family regarding diagnosis, diagnostic results and plan for admission. CARE ENDORSED: Time: 16:00. Dr Newsome, pending PMRT evaluation and disposition. Departure Diagnosis: Primary Impression: Bipolar affective disorder, mixed, severe, with psychotic behavior Additional Impression: Acute urinary retention Condition: Serious ANURAG NOBLE MD July 26, 2016 14:22
[2016-07-26] MEDS ORDERED: HALOPERIDOL 5 MG INJ IM ONE ×2 (14:30→15:30)
--- NOTE | 2016-07-26 15:02 | PSY ---
Date/Time of Note Date/Time of Note DATE: 07/26/16 TIME: 17:55 Psychiatric Subjective Eval Consent Pt consented to telemedicine: Yes Subjective Evaluation Patient location: emergency Chief Complaint: more aloc per mother this am. no trauma. pt is alert with no active bleedin History of present illness The patient is a 45 yo male with bipolar disorder, had colorectal surgery 3 weeks ago and numerous complications though now resolved. In this context, he has become manic and psychotic, brought in by girlfriend. He is not sleeping, very agitated, delusional, certain that someone who is out to get him is in ED ( they are not), has AH, in ED was assaultive, hostile, and belligerent. Girlfriend. who reported on hx, did talilng. Pt was in bed, writhing in discomfort, moaning, disorganized. Girlfriend described pt as acting much like an . Girlfriend reports she cannot care for him at home. By ER doc's report, pt required haldol for agitation. Past Psych Hx: extensive hx of bipolar disorder PMHx: as in hpi Meds: by report, he takes 300mg seroquel, 200mg trazodone, and 400mg tegretol All: denies MSE: writhing in bed in discomfort, moaning loudly, eyes closed, disorganized, loud unable to engage in interview Medical history Problems Medical Problems: (1) Acute low back pain Status: Acute (2) Anal fissure Status: Acute (3) COPD exacerbation Status: Acute (4) External hemorrhoid Status: Acute (5) External hemorrhoids Status: Acute (6) Flank pain Status: Acute (7) Hemorrhoid Status: Acute (8) Medication refill Status: Acute (9) Pain, rectal Status: Acute (10) Post-op pain Status: Acute (11) Postoperative pain Status: Acute (12) Rectal bleeding Status: Acute (13) Rectal hemorrhage Status: Acute (14) Retention of urine Status: Acute (15) Rib pain Status: Acute (16) Skin pain Status: Acute (17) Syncope Status: Acute Allergies: Coded Allergies: No Known Allergy (Unverified , 07/26/16) Psychiatric Objective Eval Mental Status Examination: Laboratory Results Laboratory Tests Test 07/26/16 10:00 07/26/16 12:00 Urine Color LT. YELLOW Urine Clarity CLEAR Urine pH 6.5 Urine Specific [place] 1.010 Urine Ketones NEGATIVE Urine Nitrite NEGATIVE Urine Bilirubin NEGATIVE Urine Urobilinogen 0.2 E.U./dL Urine Leukocyte Esterase NEGATIVE Urine Hemoglobin NEGATIVE Urine Glucose NEGATIVE% Urine Total Protein NEGATIVE Urine Opiates Screen Negative Urine Barbiturates Negative Urine Amphetamines Screen Negative Urine Benzodiazepines Screen Negative Urine Cocaine Screen Negative Urine Cannabinoids Positive White Blood Count 8.210^3/ul Red Blood Count 4.9010^6/ul Hemoglobin 14.1g/dl Hematocrit 43.1% Mean Corpuscular Volume 88.0fl Mean Corpuscular Hemoglobin 28.8pg Mean Corpuscular Hemoglobin Concent 32.7g/dl Red Cell Distribution Width 14.2% Platelet Count 45606^3/UL Mean Platelet Volume 11.6fl Neutrophils % 73.9% Lymphocytes % 15.2% Monocytes % 9.0% Eosinophils % 1.3% Basophils % 0.5% Nucleated Red Blood Cells % 0.0/100WBC Neutrophils # 6.110^3/ul Lymphocytes # 1.310^3/ul Monocytes # 0.710^3/ul Eosinophils # 0.110^3/ul Basophils # 0.010^3/ul Nucleated Red Blood Cells # 0.010^3/ul Sodium Level 143mmol/L Potassium Level 4.4mmol/L Chloride Level 109mmol/L Carbon Dioxide Level 26mmol/L Anion Gap 12 Blood Urea Nitrogen 9mg/dl Creatinine 0.96mg/dl Glucose Level 107mg/dl Calcium Level 9.4mg/dl Total Bilirubin 0.2mg/dl Direct Bilirubin 0.00mg/dl Indirect Bilirubin 0.2mg/dl Aspartate Amino Transf (AST/SGOT) 58IU/L Alanine Aminotransferase (ALT/SGPT) 49IU/L Alkaline Phosphatase 116IU/L Total Protein 8.1g/dl Albumin 4.6g/dl Globulin 3.50g/dl Albumin/Globulin Ratio 1.31 Lipase 222U/L Salicylates Level < 1.0mg/dl Acetaminophen Level < 10.0ug/ml [place] Level 0.5mmol/L Ethyl Alcohol Level < 10.0mg/dl Assessment and Plan Assessment/Diagnosis [place]: bipolar disorder, manic/psychotic Recommendation/Plan Medication Management 45 yo male, manic and psychotic, danger to others due to demonstrated behavior, also unable to care for self -would recommend zyprexa 5mg bid -clonazepam 0.5mg bid -benzodiazepine withdrawal precautions as pt reports he was taking xanax at home -given that it is not clear whether he is taking meds, due to unreliability, would also only give 100mg trazodone and 100mg seroquel at night -may given carbamazepine 200mg bid -obtain carbamazepine blood levels -for moderate agitation, zyprexa 5mg po -for severe agitation, haldol 5mg IM, ativan 2mg im, cogentin 1mg im -5150 admission 5150 Recommendation: Place MONICA Saucedo July 26, 2016 15:02
[2016-07-26 22:32] VITALS: BP 150/89; PULSE 67; RESP 20; TEMP 99
== END 2016-07-26 22:40 ==
LOC: E/R 09:27
DX: F31.64 Bipolar disorder, current episode mixed, severe, with psychotic features (principal); R33.9 Retention of urine, unspecified; F17.210 Nicotine dependence, cigarettes, uncomplicated; R40.2142 Coma scale, eyes open, spontaneous, at arrival to emergency department; R40.2242 Coma scale, best verbal response, confused conversation, at arrival to emergency department; R40.2352 Coma scale, best motor response, localizes pain, at arrival to emergency department
CPT/HCPCS: 51702; 70450; 71010; 74000; 80053; 80178; 80306; 80307; 81003; 83690; 84443; 85025; 96372; 96374; J1630; J2060; Z7502; Z7610

== ENCOUNTER 2016-10-04 07:00 | Inpatient (IN) | payer OTHER ==
[~2016-10-04] VITALS: Ht 170.2 cm; Wt 106.8 kg
[~2016-10-04 07:00] MED LIST changes: -HYDR-906 PO
[2016-10-04] MEDS ORDERED: SOD CHLORIDE 0.9% 1,000 ML IV STA (07:11)
[2016-10-04 07:18] VITALS: Ht 170.2 cm; Wt 106.8 kg
[2016-10-04] MEDS ORDERED: LORAZEPAM 2 MG INJ IV ONE (07:30)
[2016-10-04] MEDS ORDERED: DIVA500T15 PO (07:37)
[2016-10-04] MEDS ORDERED: TRAZ150T65 PO (07:37)
[2016-10-04] MEDS ORDERED: CARB100T2 PO (07:37)
[2016-10-04] MEDS ORDERED: CARB400T4 PO (07:37)
[2016-10-04 08:04] LABS: ADD UMIC NO; UR ASCORBIC ACID NEGATIVE (NEGATIVE); UR BILIRUBIN (Dip) NEGATIVE (NEGATIVE); UR BLOOD (Dip) NEGATIVE (NEGATIVE); UR CLARITY CLEAR (CLEAR); UR COLOR STRAW (YELLOW); UR GLUCOSE (Dip) NEGATIVE (NEGATIVE); UR KETONES (Dip) NEGATIVE (NEGATIVE); UR LEUKOCYTE ESTERASE (Dip) NEGATIVE Leu/ul (NEGATIVE); UR NITRITE (Dip) NEGATIVE (NEGATIVE); UR SPECIFIC GRAVITY (Dip) 1.008 (1.003-1.030); UR TOTAL PROTEIN (Dip) NEGATIVE (NEGATIVE); UR UROBILINOGEN (Dip) NEGATIVE (NEGATIVE)
--- NOTE | 2016-10-04 08:12 | RADRPT ---
PROCEDURE: CT Brain without. CLINICAL INDICATION: Altered mental status. TECHNIQUE: A CT of the brain was performed on multidetector high-resolution CT scanner utilizing a xial sections from the skull base through the vertex without contrast. The scan was reviewed in sof t tissue brain and high frequency resolution bone algorithm windows. Images were reviewed on a high -resolution PACS workstation. One or more the following does reduction techniques were utilized: Aut omated exposure control, adjustment of the mA/ or kV according to patient's size, or use of iterativ e reconstruction technique. The exam CTDI = 43.16 mGy and the DLP = 720.23 mGy-cm. COMPARISON: None available. FINDINGS: Multiple images are degraded by motion. The ventricles and sulci are age-appropriate. There is no intracranial hemorrhage, mass effect or mi dline shift. No abnormal intra-axial or extra-axial fluid collections are seen. The ellis/white horace er differentiation is preserved. Chronic deformity of the left lamina papyracea is noted with focal orbital fat herniation. No acute skull abnormality is noted. The visualized paranasal sinuses demon strate mild to moderate mucosal thickening of bilateral maxillary sinuses with trace fluid the/mucoi d secretion. The mastoid air cells are essentially clear. IMPRESSION: 1. No acute intracranial hemorrhage, transcortical infarction or mass effect. 2. Mild to moderate bilateral maxillary sinus disease with trace fluid the/mucoid secretion, correl ate for acute sinusitis. RPTAT: HFN .Casey Ruiz MD, MD Date Time Electronically viewed and signed by .Casey Ruiz MD, MD on 10/04/2016 08:12 .N/
--- NOTE | 2016-10-04 08:18 | RADRPT ---
PROCEDURE: CT Abdomen and pelvis without contrast. CLINICAL INDICATION: Abdominal pain. TECHNIQUE: CT scan of the abdomen and pelvis was performed on a multi-detector high-resolution CT scanner. Contiguous axial images were obtained from the lung bases to the ischial tuberosities wit hout intravenous contrast. Coronal and sagittal reformatted images were also obtained. Images were reviewed on the PACS workstation. Study limited by patient motion One or more of the following dose reduction techniques were used: - Automated exposure control. - Adjustment of the mA and/or kV according to patient size. - Use of iterative reconstruction technique. Exam CTD/vol = 23.73 mGy. Total exam DLP = 1458.05 mGy-cm. COMPARISON: 07/07/2016. FINDINGS: Evaluation of the lung bases demonstrates minimal bibasilar atelectasis. Abdomen: The liver is normal in size. There is no focal mass or dilatation of the biliary tree. T he gallbladder is not distended. The spleen, pancreas and bilateral adrenal glands are within alexis l limits. Bilateral kidneys are normal in size with no contour deforming mass identified. There is no radiopaque renal or ureteral calculus identified. There is no hydronephrosis or hydroureter. T here is no retroperitoneal adenopathy. The abdominal aorta is of normal caliber. There is moderate retained stool within the colon. There is no bowel obstruction or free air. The appendix is not visualized. There is no diverticulosis or diverticulitis. There is no ascites. Pelvis: The bladder contains a Lewis catheter. The prostate and seminal vesicles are within normal limits. There is no significant pelvic adenopathy or free fluid. Evaluation of the osseous structures demonstrates no suspicious lytic or blastic lesion. IMPRESSION: No acute abnormality identified within the abdomen and pelvis. Moderate retained stool within the colon. Study limited by patient motion. .Ethan Sousa MD, MD Date Time Electronically viewed and signed by .Ethan Sousa MD, MD on 10/04/2016 08:18 .T/
[2016-10-04 08:21] LABS: ALANINE AMINOTRANSFERASE 30 IU/L (13-69); ALBUMIN 4.7 g/dl (3.3-4.9); ALBUMIN/GLOBULIN RATIO 2.04; ALKALINE PHOSPHATASE 89 IU/L (42-121); ANION GAP 20 (8-16); ASPARTATE AMINO TRANSFERASE 20 IU/L (15-46); BLOOD UREA NITROGEN 20 mg/dl (7-20); CALCIUM 8.6 mg/dl (8.4-10.2); CARBON DIOXIDE 25 mmol/L (21-31); CHLORIDE 102 mmol/L (97-110); GLUCOSE 123 mg/dl (70-220); POTASSIUM 3.8 mmol/L (3.5-5.1); SODIUM 143 mmol/L (135-144)
[2016-10-04 08:33] LABS: ADD SCAN DIFF NO
[2016-10-04 08:33] LABS: ACETAMINOPHEN < 10.0 ug/ml (10.0-30.0); ETHANOL < 10.0 mg/dl; SALICYLATE < 1.0 mg/dl (5.0-30.0)
[2016-10-04 08:45] LABS: BASOPHIL # 0.1 10^3/ul (0.0-0.1); BASOPHILS % 0.6 % (0.0-2.0); EOSINOPHILS # 0.3 10^3/ul (0.0-0.5); EOSINOPHILS % 3.8 % (0.0-7.0); HEMATOCRIT 37.6 % (42.0-52.0); HEMOGLOBIN 12.5 g/dl (14.0-18.0); LYMPHOCYTES # 1.2 10^3/ul (0.8-2.9); LYMPHOCYTES % 13.7 % (15.0-51.0); MEAN CORPUSCULAR HEMOGLOBIN 29.1 pg (29.0-33.0); MEAN CORPUSCULAR HGB CONC 33.2 g/dl (32.0-37.0); MEAN CORPUSCULAR VOLUME 87.4 fl (82.0-101.0); MEAN PLATELET VOLUME 12.1 fl (7.4-10.4); MONOCYTE # 0.8 10^3/ul (0.3-0.9); MONOCYTES % 8.9 % (0.0-11.0); NEUTROPHIL # 6.5 10^3/ul (1.6-7.5); NEUTROPHILS % 72.6 % (39.0-77.0); PLATELET COUNT 199 10^3/UL (140-415); RED CELL DISTRIBUTION WIDTH 14.7 % (11.5-14.5)
[2016-10-04 08:50] LABS: BARBITURATES Negative (NEGATIVE); BENZODIAZEPINES Negative (NEGATIVE); CANNABINOIDS Positive (NEGATIVE); COCAINE Negative (NEGATIVE); OPIATES Negative (NEGATIVE)
[2016-10-04] MEDS ORDERED: HALOPERIDOL 5 MG INJ IM ONE (09:00)
[2016-10-04 09:04] VITALS: PULSE 72
[2016-10-04] MEDS ORDERED: SOD CHLORIDE 0.9% 1,000 ML IV SCH (09:22)
--- NOTE | 2016-10-04 09:27 | ERA ---
ER Documentation Chief Complaint Date/Time DATE: 10/04/16 TIME: 09:23 Chief Complaint BIBA FROM HOME D/T ALOC HPI This is a 45-year-old male who presents to the emergency room for evaluation of altered mental status. The patient is unable to give a history secondary to his clinical condition. According to EMS and the patient's is patient did smoke synthetic marijuana last night. This patient does have history of bipolar. The patient is not giving any history and is just screaming in bed. EMS also stated this patient did trip last night and fell in the bathroom. There was no loss of consciousness or head injury according to EMS. ROS All systems reviewed and are negative except as per history of present illness. Medications Home Meds Reported Medications Carbamazepine* (Carbamazepine*) 100 Mg Tab.chew, 600 MG PO BID, #60 TAB.CHEW 10/04/16 Trazodone Hcl* (Trazodone Hcl*) 150 Mg Tablet, 150 MG PO QHS, #30 TAB 10/04/16 Divalproex Sodium* (Divalproex ER*) 500 Mg Tab.er.24h, 500 MG PO HS, #30 TAB.SA 10/04/16 Carbamazepine* (Carbamazepine* XR) 400 Mg Tab.er.12h, 400 MG PO HS, #60 TAB.SA 10/04/16 Quetiapine Fumarate* (Quetiapine Fumarate*) 300 Mg Tablet, 600 MG PO QHS, TAB 07/07/16 Oxcarbazepine* (Trileptal*) 150 Mg Tablet, 450 MG PO BID, TAB 01/30/16 Alprazolam* (Alprazolam*) 1 Mg Tablet, 2 MG PO TID Y for ANXIETY, TAB 01/30/16 Allergies Allergies: Coded Allergies: No Known Allergy (Unverified , 07/26/16) PMhx/Soc Medical and Surgical Hx: Unable to obtain History of Surgery: Yes (Appy,Hemorrhoidectomy, colorectal sx) Anesthesia Reaction: No Hx Neurological Disorder: No Hx Respiratory Disorders: No Hx Cardiac Disorders: Yes ('somethign wrong with my heart' cant articulate) Hx Psychiatric Problems: Yes (Manic-Depressive D/O;bipolar, Anxiety) Hx Miscellaneous Medical Probl: Yes (Hemorrhoids, cholesterol.) Hx Alcohol Use: No Hx Substance Use: Yes (MJ) Hx Tobacco Use: Yes Smoking Status: Current every day smoker Physical Exam Vitals Vital Signs Date Time Temp Pulse Resp B/P Pulse Ox O2 Delivery O2 Flow Rate FiO2 10/04/16 09:04 72 18 146/105 100 Nasal Cannula 3.0 10/04/16 07:18 98.4 79 20 132/75 94 Physical Exam INITIAL VITAL SIGNS: Reviewed by me GENERAL: The patient is well developed, yelling in bed HEENT: Dry mucous membranes, pupils equal, round, and reactive to light. EOMI. There is no scleral icterus. NECK: C-spine is soft and supple, there is no meningismus. There is no cervical lymphadenopathy. LUNGS: Clear to auscultation bilaterally. There are no rales, wheezes or rhonchi. HEART: Regular rate and rhythm, no murmurs, clicks, rubs or gallops. ABDOMEN: Soft, non-tender, non-distended. There are bowel sounds in all four quadrants. No rebound or guarding. EXTREMITIES: There is no peripheral cyanosis or edema. No focal swelling or erythema. NEUROLOGICAL: The patient moves all four extremities with 5/5 strength. Cranial nerves II - XII are intact. SKIN: Superficial abrasion noted over the left flank, and lumbosacral region of back there is no apparent rash or petechiae. HEME/LYMPHATIC: There is no evidence of excessive bruising or lymphedema. PSYCHIATRIC: The patient does appear to be moderately agitated, and is yelling Result Diagram: 10/04/16 0820 10/04/16 0732 Results 24 hrs Laboratory Tests Test 10/04/16 07:20 10/04/16 07:32 10/04/16 07:42 10/04/16 08:20 Urine Opiates Screen Negative Urine Barbiturates Negative Urine Amphetamines Screen Negative Urine Benzodiazepines Screen Negative Urine Cocaine Screen Negative Urine Cannabinoids Positive Sodium Level 143mmol/L Potassium Level 3.8mmol/L Chloride Level 102mmol/L Carbon Dioxide Level 25mmol/L Anion Gap 20 Blood Urea Nitrogen 20mg/dl Creatinine 0.90mg/dl Glucose Level 123mg/dl Calcium Level 8.6mg/dl Total Bilirubin 0.0mg/dl Direct Bilirubin 0.00mg/dl Indirect Bilirubin 0.0mg/dl Aspartate Amino Transf (AST/SGOT) 20IU/L Alanine Aminotransferase (ALT/SGPT) 30IU/L Alkaline Phosphatase 89IU/L Total Protein 7.0g/dl Albumin 4.7g/dl Globulin 2.30g/dl Albumin/Globulin Ratio 2.04 Lipase 174U/L Salicylates Level < 1.0mg/dl Acetaminophen Level < 10.0ug/ml Ethyl Alcohol Level < 10.0mg/dl Urine Color STRAW Urine Clarity CLEAR Urine pH 6.0 Urine Specific [place] 1.008 Urine Ketones NEGATIVEmg/dL Urine Nitrite NEGATIVEmg/dL Urine Bilirubin NEGATIVEmg/dL Urine Urobilinogen NEGATIVEmg/dL Urine Leukocyte Esterase NEGATIVELeu/ul Urine Hemoglobin NEGATIVEmg/dL Urine Glucose NEGATIVEmg/dL Urine Total Protein NEGATIVEmg/dl White Blood Count 9.010^3/ul Red Blood Count 4.3010^6/ul Hemoglobin 12.5g/dl Hematocrit 37.6% Mean Corpuscular Volume 87.4fl Mean Corpuscular Hemoglobin 29.1pg Mean Corpuscular Hemoglobin Concent 33.2g/dl Red Cell Distribution Width 14.7% Platelet Count 98273^3/UL Mean Platelet Volume 12.1fl Neutrophils % 72.6% Lymphocytes % 13.7% Monocytes % 8.9% Eosinophils % 3.8% Basophils % 0.6% Nucleated Red Blood Cells % 0.0/100WBC Neutrophils # 6.510^3/ul Lymphocytes # 1.210^3/ul Monocytes # 0.810^3/ul Eosinophils # 0.310^3/ul Basophils # 0.110^3/ul Nucleated Red Blood Cells # 0.010^3/ul Current Medications Medications (Trade) Dose Ordered Sig/Karl Route PRN Reason Start Time Stop Time Status Last Admin Dose Admin Sodium Chloride (NS) 1,000 ml @ 1,000 mls/hr Q1H STAT IV 10/04/16 07:11 10/04/16 08:10 DC 10/04/16 07:28 Lorazepam (Ativan) 2 mg ONCE ONCE IV 10/04/16 07:30 10/04/16 07:31 DC 10/04/16 07:32 Haloperidol (Haldol) 5 mg ONCE ONCE IM 10/04/16 09:00 10/04/16 09:01 DC 10/04/16 08:53 Procedures/MDM CT brain: 1. No acute intracranial hemorrhage, transcortical infarction or mass effect. 2. Mild to moderate bilateral maxillary sinus disease with trace fluid the/ mucoid secretion, correlate for acute sinusitis. CT abdomen pelvis: No acute intra-abdominal pathology This 45-year-old male presents to the emergency room for altered mental status. The patient did have a fall last night. The patient is screaming. He is unable to give any detailed history. I did obtain lab work on this patient which is within normal limits. The patient underwent a CT of the brain and the abdomen and pelvis to rule out any intra-abdominal pathology or hemorrhage. Both CAT scans are negative at this time. This patient's urine drug screen is positive for marijuana on this patient did smoke synthetic marijuana according to EMS. This patient has been hemodynamically stable however he is displaying signs of encephalopathy. The patient did get out of bed and the patient did sit on the ground. The patient was placed back in the bed and was put in restraints. I did sedate the patient with Haldol, and Ativan. The patient will be placed in for admission at this time for acute encephalopathy. Patient will be admitted under the care of Dr. Hammer Departure Diagnosis: Primary Impression: Acute encephalopathy Additional Impressions: Altered level of consciousness Normocytic anemia Marijuana abuse Condition: Stable GAYLECLARENCE NUNEZ Oct 04, 2016 09:27
[2016-10-04] MEDS ORDERED: ACETAMINOPHEN 325 MG TAB PO PRN (09:30)
[2016-10-04] MEDS ORDERED: ONDANSETRON 4 MG INJ IV PRN ×2 (09:30→12:00)
[2016-10-04 11:00] VITALS: BP 152/86; RESP 20
--- NOTE | 2016-10-04 11:41 | HP ---
Date/Time of Note Date/Time of Note DATE: 10/04/16 TIME: 11:34 Assessment/Plan VTE Prophylaxis VTE Prophylaxis Intervention: SCD's Lines/Catheters IV [facility]ter [facility]from [facility] Saline Lock Urinary Cath still in place: No Assessment/Plan Assessment/Plan 1. Acute toxic encephalopathy 2/2 substance use versus drug interactions 2. Recreational marijuana use 3. Mild HTN 4. Bipolar d/o 5. Seizure d/o PLAN: * admit / hydration / seizure and fall precautions / Monitor / supportive care * resume home meds * Will need to obtain more information and possibly provide counselling on drug interactions and use when more alert * Further interventions per clinical course Prophylaxis : SCDs / H2 sonido HPI/ROS Admit Date/Time Admit Date/Time Oct 04, 2016 at 09:23 Hx of Present Illness Presenting complaint: Altered mentation History of presenting complaint: 45-year-old male who was brought in by his family because of alteration in mental status, patient was said to be quite agitated and yelling in the emergency room. He had to be given intravenous drugs to calm him down. At this time he is sleeping comfortably without distress and I am unable to obtain any further history from him. Per report there was no fever, no complaints of chest pain. He did have a CT of the abdomen and pelvis because of some concerns for abdominal pain that but this was unremarkable. He is being admitted for further management, observation and symptom control. ROS 12 point review if systems was done and pertinent findings are as noted. PMH/Family/Social Past Medical History 1. Bipolar disorder 2. Seizure disorder 3. Dyslipidemia Past Surgical History 1. Appendectomy 2. Hemorrhoid surgery 3. Colorectal surgery Social History Smoking Status: Current every day smoker Drug Use: marijuana Exam/Review of Systems Vital Signs Vitals VS - Last 72 Hours, by Label Date Time Temp Pulse Resp B/P Pulse Ox O2 Delivery O2 Flow Rate FiO2 10/04/16 09:37 98.2 69 19 155/98 100 10/04/16 09:04 72 18 146/105 100 Nasal Cannula 3.0 10/04/16 09:00 98.2 69 19 156/97 98 10/04/16 08:45 98.4 80 16 160/99 95 10/04/16 07:18 98.4 79 20 132/75 94 Vital Signs Date Time Temp Pulse Resp B/P Pulse Ox O2 Delivery O2 Flow Rate FiO2 10/04/16 09:37 98.2 69 19 155/98 100 10/04/16 09:04 Nasal Cannula 3.0 Labs Result Diagram: 10/04/16 0820 10/04/16 0732 Medications Medications Current Medications Sodium Chloride (NS) 1,000 ml @ 80 mls/hr [id number] IV Last administered on 10/04t 09:40; Admin Dose 80 MLS/HR; Start 10/04/16 at 09:22; Stop 10/04/16 at 21: 51 Procedures Procedures Laboratory Tests Test 10/04/16 07:20 10/04/16 07:32 10/04/16 07:42 10/04/16 08:20 Urine Opiates Screen Negative Urine Barbiturates Negative Urine Amphetamines Screen Negative Urine Benzodiazepines Screen Negative Urine Cocaine Screen Negative Urine Cannabinoids Positive Sodium Level 143mmol/L Potassium Level 3.8mmol/L Chloride Level 102mmol/L Carbon Dioxide Level 25mmol/L Anion Gap 20 Blood Urea Nitrogen 20mg/dl Creatinine 0.90mg/dl Glucose Level 123mg/dl Calcium Level 8.6mg/dl Total Bilirubin 0.0mg/dl Direct Bilirubin 0.00mg/dl Indirect Bilirubin 0.0mg/dl Aspartate Amino Transf (AST/SGOT) 20IU/L Alanine Aminotransferase (ALT/SGPT) 30IU/L Alkaline Phosphatase 89IU/L Total Protein 7.0g/dl Albumin 4.7g/dl Globulin 2.30g/dl Albumin/Globulin Ratio 2.04 Lipase 174U/L Salicylates Level < 1.0mg/dl Acetaminophen Level < 10.0ug/ml Ethyl Alcohol Level < 10.0mg/dl Urine Color STRAW Urine Clarity CLEAR Urine pH 6.0 Urine Specific [facility] 1.008 Urine Ketones NEGATIVEmg/dL Urine Nitrite NEGATIVEmg/dL Urine Bilirubin NEGATIVEmg/dL Urine Urobilinogen NEGATIVEmg/dL Urine Leukocyte Esterase NEGATIVELeu/ul Urine Hemoglobin NEGATIVEmg/dL Urine Glucose NEGATIVEmg/dL Urine Total Protein NEGATIVEmg/dl White Blood Count 9.010^3/ul Red Blood Count 4.3010^6/ul Hemoglobin 12.5g/dl Hematocrit 37.6% Mean Corpuscular Volume 87.4fl Mean Corpuscular Hemoglobin 29.1pg Mean Corpuscular Hemoglobin Concent 33.2g/dl Red Cell Distribution Width 14.7% Platelet Count 34869^3/UL Mean Platelet Volume 12.1fl Neutrophils % 72.6% Lymphocytes % 13.7% Monocytes % 8.9% Eosinophils % 3.8% Basophils % 0.6% Nucleated Red Blood Cells % 0.0/100WBC Neutrophils # 6.510^3/ul Lymphocytes # 1.210^3/ul Monocytes # 0.810^3/ul Eosinophils # 0.310^3/ul Basophils # 0.110^3/ul Nucleated Red Blood Cells # 0.010^3/ul Test 10/04/16 08:57 Ammonia < 9umol/l Current Medications Medications (Trade) Dose Ordered Sig/Karl Route PRN Reason Start Time Stop Time Status Last Admin Dose Admin Sodium Chloride (NS) 1,000 ml @ 1,000 mls/hr Q1H STAT IV 10/04/16 07:11 10/04/16 08:10 DC 10/04/16 07:28 1,000 MLS/HR Lorazepam (Ativan) 2 mg ONCE ONCE IV 10/04/16 07:30 10/04/16 07:31 DC 10/04/16 07:32 2 MG Haloperidol 5 mg 5 mg ONCE ONCE IM 10/04/16 09:00 10/04/16 09:01 DC 10/04/16 08:53 5 MG Sodium Chloride (NS) 1,000 ml @ 80 mls/hr [id number] IV 10/04/16 09:22 10/04/16 21:51 10/04/16 09:40 80 MLS/HR Ondansetron HCl (Zofran Inj) 4 mg BRIDGE ORDER PRN IV NAUSEA AND/OR VOMITING 10/04/16 09:30 10/05/16 09:29 Acetaminophen (Tylenol Tab) 650 mg ER BRIDGE PRN PO MILD PAIN/FEVER 10/04/16 09:30 10/05/16 09:29 PROCEDURE: CT Brain without. CLINICAL INDICATION: Altered mental status. TECHNIQUE: A CT of the brain was performed on multidetector high-resolution CT scanner utilizing axial sections from the skull base through the vertex without contrast. The scan was reviewed in soft tissue brain and high frequency resolution bone algorithm windows. Images were reviewed on a high- resolution PACS workstation. One or more the following does reduction techniques were utilized: Automated exposure control, adjustment of the mA/ or kV according to patient's size, or use of iterative reconstruction technique. The exam CTDI = 43.16 mGy and the DLP = 720.23 mGy-cm. COMPARISON: None available. FINDINGS: Multiple images are degraded by motion. The ventricles and sulci are age-appropriate. There is no intracranial hemorrhage, mass effect or midline shift. No abnormal intra-axial or extra- axial fluid collections are seen. The ellis/white matter differentiation is preserved. Chronic deformity of the left lamina papyracea is noted with focal orbital fat herniation. No acute skull abnormality is noted. The visualized paranasal sinuses demonstrate mild to moderate mucosal thickening of bilateral maxillary sinuses with trace fluid the/mucoid secretion. The mastoid air cells are essentially clear. IMPRESSION: 1. No acute intracranial hemorrhage, transcortical infarction or mass effect. 2. Mild to moderate bilateral maxillary sinus disease with trace fluid the/ mucoid secretion, correlate for acute sinusitis. RPTAT: HFN .Casey Ruiz MD, MD Date Time Electronically viewed and signed by .Casey Ruiz MD, MD on 10/04/2016 08: 12 .N/ CC: CLARENCE ARAUJO DO PROCEDURE: CT Abdomen and pelvis without contrast. CLINICAL INDICATION: Abdominal pain. TECHNIQUE: CT scan of the abdomen and pelvis was performed on a multi- detector high-resolution CT scanner. Contiguous axial images were obtained from the lung bases to the ischial tuberosities without intravenous contrast. Coronal and sagittal reformatted images were also obtained. Images were reviewed on the PACS workstation. Study limited by patient motion One or more of the following dose reduction techniques were used: - Automated exposure control. - Adjustment of the mA and/or kV according to patient size. - Use of iterative reconstruction technique. Exam CTD/vol = 23.73 mGy. Total exam DLP = 1458.05 mGy-cm. COMPARISON: 07/07/2016. FINDINGS: Evaluation of the lung bases demonstrates minimal bibasilar atelectasis. Abdomen: The liver is normal in size. There is no focal mass or dilatation of the biliary tree. The gallbladder is not distended. The spleen, pancreas and bilateral adrenal glands are within normal limits. Bilateral kidneys are normal in size with no contour deforming mass identified. There is no radiopaque renal or ureteral calculus identified. There is no hydronephrosis or hydroureter. There is no retroperitoneal adenopathy. The abdominal aorta is of normal caliber. There is moderate retained stool within the colon. There is no bowel obstruction or free air. The appendix is not visualized. There is no diverticulosis or diverticulitis. There is no ascites. Pelvis: The bladder contains a Lewis catheter. The prostate and seminal vesicles are within normal limits. There is no significant pelvic adenopathy or free fluid. Evaluation of the osseous structures demonstrates no suspicious lytic or blastic lesion. IMPRESSION: No acute abnormality identified within the abdomen and pelvis. Moderate retained stool within the colon. Study limited by patient motion. .Ethan Sousa MD, Date Time Electronically viewed and signed by .Ethan Sousa MD, MD on 10/04/2016 08:18 .T/ CC: CLARENCE ARAUJO BOLATITO M. Oct 04, 2016 11:41
[2016-10-04] MEDS ORDERED: LORAZEPAM 2 MG INJ IV PRN (12:00)
[2016-10-04] MEDS: FAMOTIDINE 20 MG INJ IV SCH ×2 (12:00→21:36)
[2016-10-04 12:02] LABS: CREATINE KINASE 217 IU/L (23-200)
[2016-10-04 12:16] LABS: CK-MB 1.65 ng/ml (0.0-2.4); TROPONIN-I < 0.012 ng/ml (0.00-0.12)
[2016-10-04] MEDS: DEXTROSE 5%-0.45% NACL 1,000 ML IV SCH ×2 (12:46→21:37)
[2016-10-04 14:42] VITALS: BP 156/76; RESP 22
[2016-10-04 19:29] VITALS: BP 152/84; RESP 20
[2016-10-04] MEDS ORDERED: VITAMIN A & D 5 GM OINT PACKET TOP ONE (21:54)
[2016-10-04] MEDS ORDERED: KETOROLAC 15 MG INJ IV ONE (22:00)
[2016-10-05 02:00] VITALS: BP 113/73; RESP 18
[2016-10-05] MEDS: DEXTROSE 5%-0.45% NACL 1,000 ML IV SCH (04:40)
[2016-10-05 05:32] LABS: ADD SCAN DIFF NO
[2016-10-05 05:36] LABS: BASOPHILS % 0.5 % (0.0-2.0); EOSINOPHILS # 0.4 10^3/ul (0.0-0.5); EOSINOPHILS % 7.6 % (0.0-7.0); HEMATOCRIT 37.8 % (42.0-52.0); HEMOGLOBIN 12.3 g/dl (14.0-18.0); LYMPHOCYTES # 1.3 10^3/ul (0.8-2.9); LYMPHOCYTES % 22.5 % (15.0-51.0); MEAN CORPUSCULAR HEMOGLOBIN 28.7 pg (29.0-33.0); MEAN CORPUSCULAR HGB CONC 32.5 g/dl (32.0-37.0); MEAN CORPUSCULAR VOLUME 88.1 fl (82.0-101.0); MEAN PLATELET VOLUME 12.3 fl (7.4-10.4); MONOCYTE # 0.6 10^3/ul (0.3-0.9); MONOCYTES % 10.3 % (0.0-11.0); NEUTROPHIL # 3.3 10^3/ul (1.6-7.5); NEUTROPHILS % 58.7 % (39.0-77.0); PLATELET COUNT 189 10^3/UL (140-415); RED BLOOD COUNT 4.29 10^6/ul (4.70-6.10); WHITE BLOOD COUNT 5.6 10^3/ul (4.8-10.8)
[2016-10-05 06:07] LABS: ALBUMIN 4.2 g/dl (3.3-4.9); ALBUMIN/GLOBULIN RATIO 1.9; BILIRUBIN,INDIRECT 0.1 mg/dl (0-1.1); BILIRUBIN,TOTAL 0.1 mg/dl (0.2-1.3); CALCIUM 8.5 mg/dl (8.4-10.2); CREATININE 0.87 mg/dl (0.61-1.24); POTASSIUM 3.9 mmol/L (3.5-5.1); TOTAL PROTEIN 6.4 g/dl (6.1-8.1)
[2016-10-05] MEDS ORDERED: VITAMIN A & D 5 GM OINT PACKET TOP SCH (09:00)
[2016-10-05] MEDS ORDERED: DOCUSATE SODIUM 250 MG CAP PO SCH (09:00)
== END 2016-10-05 06:30 | disposition left against medical advice (07) | DRG 93 ==
LOC: E/R 07:00 → MS2 09:23
PROVIDERS: ADMIT Internal Medicine; ATTEND Family Medicine
DX: G92 Toxic encephalopathy (principal); I10 Essential (primary) hypertension; F31.9 Bipolar disorder, unspecified; D64.9 Anemia, unspecified; F12.10 Cannabis abuse, uncomplicated; G40.909 Epilepsy, unspecified, not intractable, without status epilepticus
CPT/HCPCS: 70450; 74176; 80053; 80306; 80307; 81003; 82140; 82550; 82553; 83036; 83690; 83735; 84484; 85025; 96372; 96374; J1630; J1885; J2060; J7030; J7042

== ENCOUNTER 2016-12-30 18:58 | Inpatient (IN) | payer OTHER ==
[~2016-12-30] VITALS: Ht 180.3 cm; Wt 117.9 kg
[~2016-12-30 18:58] MED LIST changes: +CARB100T2 PO; +CARB400T4 PO; +DIVA500T15 PO; +TRAZ150T65 PO; -TRAZ300T15 PO
[2016-12-30] MEDS ORDERED: SOD CHLORIDE 0.9% 500 ML IV STA (19:09)
[2016-12-30 19:14] VITALS: Ht 180.3 cm; Wt 117.9 kg
--- NOTE | 2016-12-30 19:17 | ERA ---
ER Documentation Chief Complaint Date/Time DATE: 12/30/16 TIME: 19:13 Chief Complaint HPI Patient is a 46-year-old male with history of bipolar disorder brought to the hospital by ambulance for altered mental status of unknown duration that began today. The patient is calm and conversant at baseline, but is currently unable to provide history. According to paramedics, the family found him in this state shortly before calling an ambulance. There is no report of vomiting, toxic ingestion, trauma. Glucose was 212 in the field. The patient was noted to have high blood pressure. There is no focal neurologic deficit noted. The patient has been moaning and agitated since EMS arrival. History is limited due to patient unable to provide history. Review of the patient's chart shows admission in September for altered mental status in the setting of smoking synthetic cannabis. ROS All systems reviewed and are negative except as per history of present illness. Medications Home Meds Reported Medications Gabapentin* (Gabapentin*) 600 Mg Tablet, 600 MG PO TID, #90 TAB 12/30/16 Quetiapine Fumarate* (Seroquel*) 400 Mg Tablet, 800 MG PO QHS, TAB 12/30/16 Alprazolam* (Xanax*) 2 Mg Tablet, 2 MG PO BID Y for ANXIETY, TAB 12/30/16 Divalproex Sodium* (Divalproex ER*) 500 Mg Tab.er.24h, 500 MG PO HS, #30 TAB.SA 10/04/16 Carbamazepine* (Carbamazepine* XR) 400 Mg Tab.er.12h, 400 MG PO HS, #60 TAB.SA 10/04/16 Discontinued Reported Medications Carbamazepine* (Carbamazepine*) 100 Mg Tab.chew, 600 MG PO BID, #60 TAB.CHEW 10/04/16 Trazodone Hcl* (Trazodone Hcl*) 150 Mg Tablet, 150 MG PO QHS, #30 TAB 10/04/16 Quetiapine Fumarate* (Quetiapine Fumarate*) 300 Mg Tablet, 600 MG PO QHS, TAB 07/07/16 Oxcarbazepine* (Trileptal*) 150 Mg Tablet, 450 MG PO BID, TAB 01/30/16 Alprazolam* (Alprazolam*) 1 Mg Tablet, 2 MG PO TID Y for ANXIETY, TAB 01/30/16 Allergies Allergies: Coded Allergies: No Known Allergy (Unverified , 12/30/16) PMhx/Soc Past medical history: Hyperlipidemia, bipolar disorder, COPD Past surgical history: Colorectal surgery, appendectomy Social history: Smokes tobacco and cannabis according to prior records. History of Surgery: Yes Anesthesia Reaction: No Hx Neurological Disorder: No Hx Respiratory Disorders: No Hx Cardiac Disorders: No Hx Psychiatric Problems: Yes Hx Miscellaneous Medical Probl: No Hx Alcohol Use: No Hx Substance Use: No Hx Tobacco Use: No FmHx Unobtainable Physical Exam Vitals Vital Signs Date Time Temp Pulse Resp B/P Pulse Ox O2 Delivery O2 Flow Rate FiO2 12/30/16 19:14 98.7 85 18 160/108 96 Physical Exam Const: Agitated, nonverbal, follows some commands, makes eye contact, moaning and writhing in gurney. Head: Atraumatic Eyes: Normal Conjunctiva, Pupils midrange and reactive, no pallor or icterus ENT: Normal External Ears, Nose and Mouth. Mucous membranes tacky Neck: Full range of motion..~ No meningismus. Resp: Clear to auscultation bilaterally, No wheezes, no rales Cardio: Regular rate and rhythm, no murmurs Abd: Soft, non tender, Diffusely distended. Skin: No petechiae or rashes Back: No midline or flank tenderness Ext: No cyanosis, Trace pitting edema bilaterally, symmetric Neur: Awake and alert, Spontaneously moves 4 extremities, no facial droop Psych: Normal Mood and Affect Result Diagram: 12/30/16192412/30/161924 Results 24 hrs Laboratory Tests Test 12/30/16 19:25 12/30/16 21:00 12/30/16 22:39 White Blood Count 12.010^3/ul Red Blood Count 4.0410^6/ul Hemoglobin 12.5g/dl Hematocrit 36.7% Mean Corpuscular Volume 90.8fl Mean Corpuscular Hemoglobin 30.9pg Mean Corpuscular Hemoglobin Concent 34.1g/dl Red Cell Distribution Width 14.3% Platelet Count 96793^3/UL Mean Platelet Volume 11.7fl Neutrophils % 73.3% Lymphocytes % 11.7% Monocytes % 8.7% Eosinophils % 4.4% Basophils % 0.8% Nucleated Red Blood Cells % 0.0/100WBC Neutrophils # 8.810^3/ul Lymphocytes # 1.410^3/ul Monocytes # 1.010^3/ul Eosinophils # 0.510^3/ul Basophils # 0.110^3/ul Nucleated Red Blood Cells # 0.010^3/ul Prothrombin Time 11.1Sec Prothrombin Time Ratio 0.9 INR International Normalized Ratio 0.80 Sodium Level 147mmol/L Potassium Level 4.5mmol/L Chloride Level 111mmol/L Carbon Dioxide Level 24mmol/L Anion Gap 17 Blood Urea Nitrogen 12mg/dl Creatinine 1.08mg/dl Glucose Level 165mg/dl Calcium Level 9.0mg/dl Total Bilirubin 0.0mg/dl Direct Bilirubin 0.00mg/dl Indirect Bilirubin 0.0mg/dl Aspartate Amino Transf (AST/SGOT) 36IU/L Alanine Aminotransferase (ALT/SGPT) 45IU/L Alkaline Phosphatase 137IU/L Total Protein 7.4g/dl Albumin 4.3g/dl Globulin 3.10g/dl Albumin/Globulin Ratio 1.38 Salicylates Level < 1.0mg/dl Acetaminophen Level < 10.0ug/ml Valproic Acid (Depakene) Level 15ug/ml Carbamazepine (Tegretol) Level 6.7ug/ml Ethyl Alcohol Level < 10.0mg/dl Urine Color STRAW Urine Clarity CLEAR Urine pH 6.0 Urine Specific [place] 1.008 Urine Ketones NEGATIVEmg/dL Urine Nitrite NEGATIVEmg/dL Urine Bilirubin NEGATIVEmg/dL Urine Urobilinogen NEGATIVEmg/dL Urine Leukocyte Esterase NEGATIVELeu/ul Urine Hemoglobin NEGATIVEmg/dL Urine Glucose NEGATIVEmg/dL Urine Total Protein NEGATIVEmg/dl Urine Opiates Screen Negative Urine Barbiturates Negative Urine Amphetamines Screen Negative Urine Benzodiazepines Screen Negative Urine Cocaine Screen Negative Urine Cannabinoids Positive [place] Level 1.2mmol/L Current Medications Medications (Trade) Dose Ordered Sig/Karl Route PRN Reason Start Time Stop Time Status Last Admin Dose Admin Sodium Chloride (NS) 500 ml @ 500 mls/hr Q1H STAT IV 12/30/16 19:09 12/30/16 20:08 DC 12/30/16 19:48 Lorazepam (Ativan) 1 mg ONCE ONCE IM 12/30/16 19:30 12/30/16 19:31 DC 12/30/16 19:15 Lorazepam (Ativan) 1 mg ONCE ONCE IM 12/30/16 19:30 12/30/16 19:31 DC 12/30/16 19:34 Haloperidol (Haldol) 5 mg STK-MED ONCE .ROUTE 12/30/16 19:36 12/30/16 19:37 DC Haloperidol (Haldol) 5 mg ONCE STAT IV 12/30/16 19:41 12/30/16 19:48 DC 12/30/16 19:50 Lorazepam (Ativan) 2 mg ONCE STAT IV 12/30/16 19:41 12/30/16 19:48 DC 12/30/16 19:50 Lorazepam (Ativan) 2 mg ONCE ONCE IV 12/30/16 21:00 12/30/16 21:01 DC 12/30/16 22:07 Procedures/MDM EKG read by me: Time 1957, rate 109 Rhythm: Sinus tachycardia [place]: Left axis deviation Intervals: Borderline QTC ST-T waves: no ischemic changes Ectopy: No Q-waves: Anterior Q waves Impression: Sinus tachycardia without signs of ischemia MDM: Patient is a 46-year-old male with bipolar disorder who presents to the ER with acute agitated state. He was seen 2 months ago and admitted for acute encephalopathy in the setting of using synthetic cannabinoids. Workup at that time was otherwise negative. Today he is able to follow some commands but is not communicating or speaking any words. He is writhing around in the gurney and screaming. He required multiple doses of Ativan and Haldol for sedation. Head CT was unremarkable. There is no evidence of focal neurological deficit. The patient was noted to have elevated blood pressure, but does not have history of hypertension. He did not require emergent treatment of hypertension , and I do not suspect hypertensive encephalopathy as the cause of the patient' s symptoms. Toxicologic screen was otherwise negative. The lab was unable to run a lithium level, so I am awaiting send out lithium level. Review of the patient's prior charts shows a history of COPD, and he is currently noted to have slightly prolonged expirations. I will give him an albuterol nebulizer treatment, and check a blood gas. He will be admitted to observation status pending further evaluation. If his symptoms are due to [place] intoxication, I anticipate that his mental status may normalize and he would be able to be discharged tomorrow. If not, he will require further workup for encephalopathy. The patient was noted to have bruising to his right foot, and x -ray suggestive of Lisfranc fracture. A splint was applied. He will require further orthopedic follow-up. Departure Diagnosis: Primary Impression: Altered mental status Qualified Code: R41.0 - Delirium Additional Impressions: Agitation Cannabis intoxication Qualified Code: F12.921 - Cannabis intoxication with delirium Elevated blood pressure reading Bipolar disorder Qualified Code: F31.9 - Bipolar affective disorder, remission status unspecified Lisfranc fracture Condition: MAGNOLIA Dimas MD Dec 30, 2016 19:17
[2016-12-30] MEDS ORDERED: LORAZEPAM 2 MG INJ IM ONE ×2 (19:30)
[2016-12-30] MEDS ORDERED: HALOPERIDOL 5 MG INJ ONE (19:36)
[2016-12-30] MEDS ORDERED: LORAZEPAM 2 MG INJ IV STA (19:41)
[2016-12-30] MEDS ORDERED: HALOPERIDOL 5 MG INJ IV STA (19:41)
[2016-12-30 19:43] LABS: BASOPHIL # 0.1 10^3/ul (0.0-0.1); BASOPHILS % 0.8 % (0.0-2.0); EOSINOPHILS # 0.5 10^3/ul (0.0-0.5); EOSINOPHILS % 4.4 % (0.0-7.0); HEMATOCRIT 36.7 % (42.0-52.0); HEMOGLOBIN 12.5 g/dl (14.0-18.0); LYMPHOCYTES # 1.4 10^3/ul (0.8-2.9); LYMPHOCYTES % 11.7 % (15.0-51.0); MEAN CORPUSCULAR HEMOGLOBIN 30.9 pg (29.0-33.0); MEAN CORPUSCULAR HGB CONC 34.1 g/dl (32.0-37.0); MEAN CORPUSCULAR VOLUME 90.8 fl (82.0-101.0); MEAN PLATELET VOLUME 11.7 fl (7.4-10.4); MONOCYTES % 8.7 % (0.0-11.0); NEUTROPHIL # 8.8 10^3/ul (1.6-7.5); NEUTROPHILS % 73.3 % (39.0-77.0); PLATELET COUNT 203 10^3/UL (140-415); RED BLOOD COUNT 4.04 10^6/ul (4.70-6.10); RED CELL DISTRIBUTION WIDTH 14.3 % (11.5-14.5)
[2016-12-30 19:54] LABS: INR 0.8; PROTIME 11.1 Sec (12.2-14.2); PT RATIO 0.9
[2016-12-30 20:04] LABS: ALANINE AMINOTRANSFERASE 45 IU/L (13-69); ALBUMIN 4.3 g/dl (3.3-4.9); ALBUMIN/GLOBULIN RATIO 1.38; ALKALINE PHOSPHATASE 137 IU/L (42-121); ANION GAP 17 (8-16); ASPARTATE AMINO TRANSFERASE 36 IU/L (15-46); BLOOD UREA NITROGEN 12 mg/dl (7-20); CARBAMAZEPINE (TEGRETOL) 6.7 ug/ml (8.0-12.0); CARBON DIOXIDE 24 mmol/L (21-31); CHLORIDE 111 mmol/L (97-110); CREATININE 1.08 mg/dl (0.61-1.24); GLUCOSE 165 mg/dl (70-220); POTASSIUM 4.5 mmol/L (3.5-5.1); SODIUM 147 mmol/L (135-144); TOTAL PROTEIN 7.4 g/dl (6.1-8.1)
[2016-12-30 20:06] LABS: ACETAMINOPHEN < 10.0 ug/ml (10.0-30.0); ETHANOL < 10.0 mg/dl; SALICYLATE < 1.0 mg/dl (5.0-30.0)
[2016-12-30] MEDS ORDERED: ALPR2TAB PO (20:45)
[2016-12-30] MEDS ORDERED: QUET400T PO (20:46)
[2016-12-30] MEDS ORDERED: GABA-526 PO (20:48)
[2016-12-30] MEDS ORDERED: LORAZEPAM 2 MG INJ IV ONE (21:00)
[2016-12-30 21:20] LABS: ADD UMIC NO; UR ASCORBIC ACID NEGATIVE (NEGATIVE); UR BILIRUBIN (Dip) NEGATIVE (NEGATIVE); UR BLOOD (Dip) NEGATIVE (NEGATIVE); UR CLARITY CLEAR (CLEAR); UR COLOR STRAW (YELLOW); UR GLUCOSE (Dip) NEGATIVE (NEGATIVE); UR KETONES (Dip) NEGATIVE (NEGATIVE); UR LEUKOCYTE ESTERASE (Dip) NEGATIVE Leu/ul (NEGATIVE); UR NITRITE (Dip) NEGATIVE (NEGATIVE); UR SPECIFIC GRAVITY (Dip) 1.008 (1.003-1.030); UR TOTAL PROTEIN (Dip) NEGATIVE (NEGATIVE); UR UROBILINOGEN (Dip) NEGATIVE (NEGATIVE)
[2016-12-30 21:55] LABS: BARBITURATES Negative (NEGATIVE); BENZODIAZEPINES Negative (NEGATIVE); CANNABINOIDS Positive (NEGATIVE); COCAINE Negative (NEGATIVE); OPIATES Negative (NEGATIVE)
--- NOTE | 2016-12-30 21:57 | RADRPT ---
PROCEDURE: XR Abdomen. CLINICAL INDICATION: Abdomen pain. TECHNIQUE: AP supine abdomen x-ray. COMPARISON: 07/26/2016. FINDINGS: The bowel gas pattern is normal. There is no evidence of obstruction. There are no abnormal calcifications overlying the urinary tracts. The osseus structures are unremarkable. IMPRESSION: 1. Unremarkable abdomen radiograph. RPTAT: QQ .Jerry Arellano MD, MD Date Time Electronically viewed and signed by .Jerry Arellano MD, on 12/30/2016 21:57 .R/
--- NOTE | 2016-12-30 22:31 | RADRPT ---
PROCEDURE: CT Head without. CLINICAL INDICATION: Altered mental status. TECHNIQUE: The study was performed utilizing a multi-slice, multidetector CT scanner. Direct spira l 1 mm axial sections were obtained through the head without the use of intravenous contrast materia l. 1 or more of the following dose reduction techniques were utilized: Automated exposure control, adjustment of the mA and/or kV according to patient's size, iterative reconstruction technique. Co lesia and sagittal reformations were obtained. The images were reviewed on a PACS workstation. RADIATION DOSE: CTDIvol: 43.3 mGyDLP: 897.7 mGy-cm COMPARISON: No prior studies are available for comparison. FINDINGS: There is no intracranial hemorrhage, extra-axial fluid collection, mass lesion, midline shift or hyd rocephalus. The ventricles, sulci and cisterns are within normal limits. The white matter is unrem arkable. The ellis-white matter differentiation is preserved. The basal cisterns are patent. The m idline structures are intact. The orbits, calvarium and extracranial soft tissues are normal in jalen earance. The visualized paranasal sinuses, mastoid air cells and middle ear cavities are normally ae rated. IMPRESSION: 1. No acute intracranial abnormality. No intracranial hemorrhage, extra-axial fluid collection, ma ss lesion or hydrocephalous. RPTAT: HGAS .Sanchez Adkins MD, MD Date Time Electronically viewed and signed by .Sanchez Adkins MD, MD on 12/30/2016 22:31 .S/
--- NOTE | 2016-12-30 22:52 | RADRPT ---
PROCEDURE: XR Foot. CLINICAL INDICATION: Right foot trauma. TECHNIQUE: AP, lateral and oblique views of the right foot was obtained. The images were reviewed on a PACS workstation. COMPARISON: None. FINDINGS: Question widening of the Lisfranc interval measuring up to [address] examination to exclude Lisfranc ligament injury. Question interarticular fracture of the base of the first metatarsal. Oth erwise, the bones of the foot appear intact, with no evidence of fracture, dislocation, or subluxati on. The joint spaces are preserved. Bone mineralization is normal. Soft tissue swelling over the for efoot. IMPRESSION: 1. Question widening of the Lisfranc interval measuring up to 5 mm, and recommend CT examination to exclude a Lisfranc ligament injury. 2. Question intra-articular fracture of the base the first metatarsal. 3. Otherwise, tissue swelling over the forefoot, without acute fracture. RPTAT: UU Physician Suzette Date Time Electronically viewed and signed by Physician Suzette on 12/30/2016 22:52 RS/
[2016-12-31] VITALS (29 sets, daily range): BP systolic 138–175; BP diastolic 74–128; PULSE 85–93; RESP 10–30; TEMP 98
[2016-12-31] MEDS ORDERED: ONDANSETRON 4 MG INJ IV PRN ×2 (00:30→01:00)
[2016-12-31] MEDS ORDERED: ACETAMINOPHEN 325 MG TAB PO PRN (00:30)
[2016-12-31] MEDS ORDERED: ALBUTEROL 0.083% (NEB) 2.5 MG/3 ML AMP HHN STA (00:38)
--- NOTE | 2016-12-31 00:46 | QN ---
Documentation Comment H&P dict a/p 1. neuro: ams, at this point certainly secondary to medications given in ER (b0 original cause of ams unclear and no collateral hx available 2. R foot ?fracture 3. BPAD, suspect poorly controlled JEAN MARIE BRAGG MD Dec 31, 2016 00:46
--- NOTE | 2016-12-31 00:56 | RADRPT ---
PROCEDURE: XR Chest. CLINICAL INDICATION: Shortness of breath. TECHNIQUE: Portable AP view of the chest was obtained. COMPARISON: 01/30/2016 FINDINGS: The cardiomediastinal silhouette is within normal limits. Subtle patchy infiltrates scattered throu ghout the right greater than left lung predominate the upper lobes concerning for pneumonia. There is no evidence for pleural effusion, pneumothorax or pulmonary vascular congestion. The osseous str uctures are intact with no evidence for acute abnormality. RPTAT:HJJR IMPRESSION: New subtle patchy infiltrates within the right greater than left upper lobe concerning for pneumonia possibly related to atypical etiologies. Short-term follow-up evaluation is recommended. Physician Leon Date Time Electronically viewed and signed by Physician Leon on 12/31/2016 00:56 /
[2016-12-31] MEDS ORDERED: ENALAPRILAT 1.25 MG INJ IV PRN (01:00)
[2016-12-31] MEDS ORDERED: CLONIDINE 0.2 MG/24 HR PATCH TRANSDERM ONE (01:00)
[2016-12-31 01:04] LABS: MODE ROOM AIR; MetHgb Venous 0.2 %; Sample Type Blood venous; Venous COHb 2.2 %; Venous Fraction OxyHgb 80.7 %
[2016-12-31] MEDS ORDERED: LORAZEPAM 2 MG INJ IV ONE ×2 (03:00→03:30)
[2016-12-31] MEDS ORDERED: hydrALAzine 20 MG INJ IV ONE (04:00)
[2016-12-31] MEDS ORDERED: HALOPERIDOL 5 MG INJ IM ONE (04:00)
[2016-12-31] MEDS ORDERED: PROPOFOL 100 ML IV STA (04:36)
[2016-12-31] MEDS ORDERED: ETOMIDATE 20 MG INJ IV STA (04:36)
[2016-12-31] MEDS ORDERED: SUCCINYLCHOLINE CHLORIDE 100 MG/5 ML SYG IV STA (04:36)
--- NOTE | 2016-12-31 05:05 | RADRPT ---
PROCEDURE: CHEST - 1 VIEW CLINICAL INDICATION: 46-year-old male with respiratory distress and intubation. TECHNIQUE: A single frontal AP portable view of the chest was performed. The images were reviewed on a PACS workstation. COMPARISON: Chest x-ray January 30, 2016. FINDINGS: There is an endotracheal tube identified with the tip approximately 3.3 cm above the villa. The car diomediastinal silhouette is prominent but without significant interval change. There is diffuse pat ilan bilateral infiltrates. There is no evidence for pneumothorax. The osseous structures are intact. IMPRESSION: 1. Endotracheal tube with the tip in the mid trachea. 2. Diffuse patchy bilateral infiltrates. .Parag Hawthorne MD, Date Time Electronically viewed and signed by .Parag Hawthorne MD, on 12/31/2016 05:05 .Luis Antonio/
--- NOTE | 2016-12-31 05:14 | EN ---
Date/Time of Note Date/Time of Note DATE: 12/31/16 TIME: 05:12 ER Progress Note I was called to the bedside to evaluate this patient. This patient was being admitted for encephalopathy. The patient was given 5 mg of Haldol by myself approximately 1 hour ago was because of agitation. When I arrived at the bedside this patient was severely agitated, he was in restraints, he was diaphoretic and he was thrashing around in bed and slamming his head on the side rail. This patient was altered and was not following commands. I look at this patient's previous orders and noted that this patient had received a total of 9 mg of Ativan, 10 mg of Haldol with no resolution of his agitation. Given this patient's severe agitation and inability to be sedated the decision was made to intubate this patient for his own protection. This patient was intubated. I have spoken to the admitting physician, Dr. Ocasio who is aware. I have contacted the help desk internship and had notified him and he agrees to consult on this patient. Endotracheal Intubation by me: Pre assessment performed. See preceding note for details. Pre-oxygenation performed with 100% oxygen RSI: Performed w/o complication or hypoxic events. Medications as ordered. Blade: [Mac 4] ET Tube: 7.5 cm Depth: 23 cm at the lip Intubation confirmed by colorimetric CO2, equal breath sounds, quiet over the stomach. Chest X-ray 1V Interpreted by me: 3 cm above the villa ET tube. Normal soft tissue, No pneumothorax. Critical Care: Excluding all billable procedures Time: 42 minutes Treatments/Evaluations: Close monitoring and treatment of unstable vital signs, cardiorespiratory, and neurologic status, while maintaining tight balance of fluid, respiratory, and cardiac interventions. CLARENCE ARAUJO DO Dec 31, 2016 05:14
[2016-12-31] MEDS ORDERED: MIDAZOLAM (DRIP) 50 mg/50 mL 50 ML IV STA (05:20)
[2016-12-31 06:22] LABS: AADO2 Arterial 167.3 mmHg (7.0-24.0); Allen Test ACCEPTAB; Arterial Base Excess 0.2 mmol/L (-3.0-3); Arterial COHb 0.4 % (0.0-3.0); Arterial Fraction of Oxyhgb 98.1 % (93.0-99.0); Arterial HCO3 25.9 mmol/L (22.0-26.0); Arterial MetHb 0.3 % (0.0-1.5); Arterial Total Hemglobin 12.5 g/dl (12.0-18.0); MODE VENT - AC/VC+
[2016-12-31 06:53] LABS: ABNORMAL IP MESSAGE 1; BASOPHIL # 0.1 10^3/ul (0.0-0.1); BASOPHILS % 0.4 % (0.0-2.0); EOSINOPHILS # 0.1 10^3/ul (0.0-0.5); EOSINOPHILS % 0.4 % (0.0-7.0); HEMATOCRIT 36.1 % (42.0-52.0); HEMOGLOBIN 11.5 g/dl (14.0-18.0); LYMPHOCYTES # 0.6 10^3/ul (0.8-2.9); LYMPHOCYTES % 4.1 % (15.0-51.0); MEAN CORPUSCULAR HGB CONC 31.9 g/dl (32.0-37.0); MEAN CORPUSCULAR VOLUME 90.9 fl (82.0-101.0); MEAN PLATELET VOLUME 12.7 fl (7.4-10.4); MONOCYTE # 0.8 10^3/ul (0.3-0.9); NEUTROPHIL # 12.2 10^3/ul (1.6-7.5); NEUTROPHILS % 88.2 % (39.0-77.0); PLATELET COUNT 186 10^3/UL (140-415); POSITIVE DIFF @See below; RED BLOOD COUNT 3.97 10^6/ul (4.70-6.10); RED CELL DISTRIBUTION WIDTH 14.6 % (11.5-14.5); WHITE BLOOD COUNT 13.8 10^3/ul (4.8-10.8)
[2016-12-31] MEDS ORDERED: SUCCINYLCHOLINE CHLORIDE 100 MG/5 ML SYG IV ONE (07:00)
[2016-12-31] MEDS ORDERED: ETOMIDATE 20 MG INJ ONE (07:00)
[2016-12-31 07:03] LABS: CREATININE 0.91 mg/dl (0.61-1.24); POTASSIUM 4.1 mmol/L (3.5-5.1)
[2016-12-31] MEDS: D5W-0.45 NACL + KCL 40 MEQ 1,000 ML IV SCH ×3 (07:03→17:00)
--- NOTE | 2016-12-31 08:38 | HP ---
DATE OF ADMISSION: 12/30/2016 CHIEF COMPLAINT: Altered mental status. HISTORY OF PRESENTING ILLNESS: The patient presented to the emergency room at [facility] ith alteration in mental status. According to the ER physician, he was quite agitated and family ca lled paramedics and he was brought here to the hospital and required extensive doses of sedation. B y the time of my arrival, the patient is totally unresponsive to voice or noxious stimuli, unable to provide any additional history. Calls to family were not answered. PAST MEDICAL HISTORY: Unknown, but presumed to include bipolar affective disorder. MEDICATIONS: Listed on patient's chart include: 1. Xanax 2 mg b.i.d. as needed. 2. Tegretol 400 mg daily. 3. Valproate 500 mg daily. 4. Neurontin 600 mg t.i.d. 5. Seroquel 800 mg at nighttime. ALLERGIES: UNKNOWN, BUT NONE LISTED. SOCIAL HISTORY: Unknown, but face sheet lists him as living in [place] with his girlfriend. FAMILY HISTORY: Unobtainable. REVIEW OF SYSTEMS: Unobtainable secondary to patient's status. PHYSICAL EXAMINATION: VITAL SIGNS: Blood pressure is 160/108, pulse rate 85, respirations 18, temperature is 98.7. GENERAL: Middle-aged man, obese, found in bed sleeping and snoring, unresponsive. HEENT: Normocephalic, atraumatic without evident scleral icterus, perioral cyanosis. Mucous membra ortiz are dry. NECK: Soft and supple without masses. No evidence of jugular venous distention or carotid bruits. CHEST: Clear to auscultation and percussion anteriorly. HEART: Regular rate and rhythm, S1, S2, no added sounds. ABDOMEN: Soft, distended with obesity, no palpable hepatosplenomegaly. EXTREMITIES: Without clubbing, cyanosis or edema. SKIN: Without rashes. NEUROLOGIC: Essentially comatose after numerous rounds of sedating medications. No spontaneous mov ements, but breathing quite adequately at this point in time. LABORATORY STUDIES: Reveal hemoglobin of 12.5 g/dL, white count of 12,000, platelets of 203,000. I NR is 1.0. Sodium 147, potassium 4.5, chloride 111, bicarbonate 24, BUN 12, creatinine 1.08, glucos e 165. Liver function tests remarkable only for an alkaline phosphatase of 137. UA is negative for signs of infection. Urine tox screen does show positive for cannabinoids, but is otherwise negativ e. Alcohol negative, aspirin and Tylenol negative. Valproate level was 15 and Tegretol level was 6 .7, both of which are low; however, I do not believe he is taking these for seizures. Tancred level is 1.2 in spite of not being listed on his medication list. ASSESSMENT AND PLAN: Neurologic: Alteration in mental status of unclear etiology, at this time cer tainly secondary to medications which have been administered. Will have to allow these to washout a nd await collateral history. I suspect an original cause of problem is related to poorly controlled bipolar disorder, possibly exacerbated by drug use, but await further history to make any more dete rminations. Dictated By: JEAN MARIE BRAGG MD RER/NTS Conf#: [id number] DID#: [id number]
--- NOTE | 2016-12-31 14:13 | RADRPT ---
PROCEDURE: CT of the right foot and ankle without contrast CLINICAL INDICATION: Clinical concern is for a Lisfranc fracture. TECHNIQUE: CT scan of the right foot and ankle was performed . No IV contrast was administered. Coronal and sagittal reformatted images were obtained from the axial source images. Images were revi ewed on a high-resolution PACS workstation. The calculated radiation dose measures 513.30 mGy centi meters. The CTDI measures 18.33 mGy. One or more of the following dose reduction techniques were used: - Automated exposure control. - Adjustment of the mA and/or kV according to patient size . - Use of iterative reconstruction technique. COMPARISON: DR WARD 12/30/2016 FINDINGS: Osseous structures: There is an oblique, mildly displaced fracture of the base of the first metatarsal involving the art icular surface. The overlying medial cuneiform demonstrates tiny cortical chip fractures medially li gamaliel related to the Lisfranc ligament attachment. There is widening between the medial cuneiform and second metatarsal base along with slight offset at the second tarsometatarsal joint and avulsion fr acture at the base of the second metatarsal consistent with a Lisfranc ligament avulsion. There are minimally displaced chip fractures at the third and fourth metatarsal bases with articular surface i nvolvement. There is also a mildly displaced, comminuted fracture of the anterior cuboid margin over lying the fourth and fifth metatarsal bases. The remaining osseous structures are intact. The hind f oot is maintained. Soft tissues: There is a moderate amount of subcutaneous edema at the dorsum of the mid and forefoot. IMPRESSION: 1. Lisfranc injury noting avulsion fractures at the ligament attachment on the medial cuneiform and second metatarsal base, as well as, widening of the Lisfranc space 2. Comminuted, intrarticular fractures at the first through fourth metatarsal bases, noting minimal displacement. 3. Mildly displaced, intrarticular fracture at the anterior cuboid margin. RPTAT: UU .Yousuf Beatty MD, MD Date Time Electronically viewed and signed by .Yousuf Beatty MD, MD on 12/31/2016 14:13 .d/
--- NOTE | 2016-12-31 14:35 | RADRPT ---
PROCEDURE: XR Chest. CLINICAL INDICATION: Status post intubation TECHNIQUE: Single portable view of the chest was obtained COMPARISON: Same Day FINDINGS: There is an endotracheal tube 2.7 cm above the villa. There is a nasogastric tube within the stomach. There are worsening extensive right upper lobe and right lower lobe infiltrates. There is mild cardi omegaly. RPTAT: AA IMPRESSION: Worsening extensive right upper lobe and right lower lobe infiltrates. Nasogastric tube within the stomach. .Marco A Painter MD, MD Date Time Electronically viewed and signed by .Marco A Painter MD, on 12/31/2016 14:35 .S/
[2016-12-31] MEDS: PROPOFOL 100 ML IV SCH ×4 (15:56→23:12)
[2016-12-31] MEDS ORDERED: FENTAnyl (DRIP) 1000 mcg/100mL 100 ML IV ONE (16:08)
[2016-12-31] MEDS: GABAPENTIN 300 MG CAP PO SCH ×3 (16:35→21:24)
--- NOTE | 2016-12-31 16:51 | PN ---
Date/Time of Note Date/Time of Note DATE: 12/31/16 TIME: 16:35 Assessment/Plan VTE Prophylaxis VTE Prophylaxis Intervention: LMWH Lines/Catheters Urinary Cath still in place: Yes Reason Cath still needed: other (indicate) (Intubated, under sedation ) Assessment/Plan Assessment/Plan 46 yo male with: 1. Severe encephalopathy, agitation, extremely combative despite Ativan and Haldol multiple doses given in the ER, had to be sedated and intubated because of danger to himself. He is currently intubated, he is on propofol and Versed drip and still agitated on admission to the intensive care unit requiring fentanyl drip to be added. Likely encephalopathy secondary to drug use, cannabinoid synthetics and possibly bath salts. He also does have a history of bipolar disorder but he is levels are low so may be noncompliant with his outpatient antipsychotics and medications 2. Bipolar disorder: Likely noncompliant with psychiatric medications. Will resume once able to access p.o. or more awake 3. Right foot Lisfranc fracture: Pain control Prophylaxis: Lovenox for DVT prophylaxis, Pepcid for GI prophylaxis Disposition: ICU monitoring, may need a sitter overnight, on sedation with multiple agents, pulmonary to see. Subjective 24 Hr Interval Summary Free Text/Dictation Patient with noted Right foot fractures and currently intubated on max Propofol and Ativan and still agitated, so Fentanyl added Patient with known Bath salt and synthetic Marijuana, U tox positive with cannabinoid Exam/Review of Systems Vital Signs Vitals Vital Signs Date Time Temp Pulse Resp B/P Pulse Ox O2 Delivery O2 Flow Rate FiO2 12/31/16 14:38 86 15 168/92 99 Mechanical Ventilator 12/31/16 14:15 40 12/31/16 11:10 98.0 Intake and Output 12/30/16 12/30/16 12/31/16 15:00 23:00 07:00 Output Total 3450 ml Balance -3450 ml Exam Constitutional: other (sedated and intubated ) Respiratory: clear to auscultation, normal air movement Cardiovascular: nl pulses, regular rate and rhythm Gastrointestinal: non-tender, soft Musculoskeletal: other (right foot with bruises and swelling ) Extremities: normal pulses Neurological: other (still agitated somewhat while under sedation, intubated ) Results Result Diagram: 12/31/16 0534 12/31/16 0534 Results 24 hrs Laboratory Tests Test 12/30/16 19:25 12/30/16 21:00 12/30/16 22:39 12/31/16 00:52 White Blood Count 12.0 #H Red Blood Count 4.04 L Hemoglobin 12.5 L Hematocrit 36.7 L Mean Corpuscular Volume 90.8 Mean Corpuscular Hemoglobin 30.9 Mean Corpuscular Hemoglobin Concent 34.1 Red Cell Distribution Width 14.3 Platelet Count 203 Mean Platelet Volume 11.7 H Neutrophils % 73.3 Lymphocytes % 11.7 L Monocytes % 8.7 Eosinophils % 4.4 Basophils % 0.8 Nucleated Red Blood Cells % 0.0 Neutrophils # 8.8 H Lymphocytes # 1.4 Monocytes # 1.0 H Eosinophils # 0.5 Basophils # 0.1 Nucleated Red Blood Cells # 0.0 Prothrombin Time 11.1 L Prothrombin Time Ratio 0.9 INR International Normalized Ratio 0.80 Sodium Level 147 H Potassium Level 4.5 Chloride Level 111 H Carbon Dioxide Level 24 Anion Gap 17 H Blood Urea Nitrogen 12 Creatinine 1.08 Glucose Level 165 Calcium Level 9.0 Total Bilirubin 0.0 L Direct Bilirubin 0.00 Indirect Bilirubin 0.0 Aspartate Amino Transf (AST/SGOT) 36 Alanine Aminotransferase (ALT/SGPT) 45 Alkaline Phosphatase 137 H Total Protein 7.4 Albumin 4.3 Globulin 3.10 Albumin/Globulin Ratio 1.38 Salicylates Level < 1.0 L Acetaminophen Level < 10.0 L Valproic Acid (Depakene) Level 15 L Carbamazepine (Tegretol) Level 6.7 L Ethyl Alcohol Level < 10.0 Urine Color STRAW Urine Clarity CLEAR Urine pH 6.0 Urine Specific [place] 1.008 Urine Ketones NEGATIVE Urine Nitrite NEGATIVE Urine Bilirubin NEGATIVE Urine Urobilinogen NEGATIVE Urine Leukocyte Esterase NEGATIVE Urine Hemoglobin NEGATIVE Urine Glucose NEGATIVE Urine Total Protein NEGATIVE Urine Opiates Screen Negative Urine Barbiturates Negative Urine Amphetamines Screen Negative Urine Benzodiazepines Screen Negative Urine Cocaine Screen Negative Urine Cannabinoids Positive [place] Level 1.2 Blood Gas Specimen Source Blood venous Arterial Blood Date Drawn 12/31/2016 12:55:40 AM Arterial Blood Gas Puncture Site VENOUS LINE [place] Test N/A Venous Blood pH 7.394 Venous Blood pCO2 (Temp Corrected) 43.6 Venous Blood pO2 (Temp Corrected) 48.8 H Venous Blood HCO3 26.0 Venous Blood Oxygen Saturation 82.7 H Venous Blood Base Excess 0.9 Venous Blood Total Hemoglobin 13.0 Venous Blood Oxyhemoglobin 80.7 Venous Blood Methemoglobin 0.2 Carboxyhemoglobin 2.2 Blood Gas Temperature 37.0 Blood Gas Modality ROOM AIR FiO2 21.0 Blood Gas Notified Whom AA Blood Gas Notified Time 12/31/2016 1:03:47 AM Test 12/31/16 04:36 12/31/16 05:34 Blood Gas Specimen Source Blood arterial Arterial Blood Date Drawn 12/31/2016 5:52:00 AM Arterial Blood pH (Temp corrected) 7.366 Arterial Blood pCO2 (Temp correct) 46.2 H Arterial Blood pO2 (Temp corrected) 209.7 H Arterial Blood HCO3 25.9 Arterial Blood Base Excess 0.2 Arterial Blood Oxygen Saturation 98.8 H [place] Test ACCEPTAB Arterial Blood Gas Puncture Site Right Radial Arterial Blood Carboxyhemoglobin 0.4 Arterial Blood Methemoglobin 0.3 Blood Gas A-a O2 Differential 167.3 H Oxyhemoglobin Percent 98.1 Total Hemoglobin 12.5 Blood Gas Temperature 37.0 Blood Gas Respiration Rate 16.0 Blood Gas Actual Respiration Rate 19 Blood Gas Modality VENT - AC/VC+ FiO2 60.0 Blood Gas Inspiratory Time 0.8 Blood Gas Tidal Volume 600.0 Blood Gas Low PEEP Setting 5.0 Blood Gas Inspiratory Pressure 20.0 Blood Gas Notified Whom AA Blood Gas Notified Time 12/31/2016 6:05:00 AM White Blood Count 13.8 H Red Blood Count 3.97 L Hemoglobin 11.5 L Hematocrit 36.1 L Mean Corpuscular Volume 90.9 Mean Corpuscular Hemoglobin 29.0 Mean Corpuscular Hemoglobin Concent 31.9 L Red Cell Distribution Width 14.6 H Platelet Count 186 Mean Platelet Volume 12.7 H Neutrophils % 88.2 H Lymphocytes % 4.1 L Monocytes % 6.0 Eosinophils % 0.4 Basophils % 0.4 Nucleated Red Blood Cells % 0.0 Neutrophils # 12.2 H Lymphocytes # 0.6 L Monocytes # 0.8 Eosinophils # 0.1 Basophils # 0.1 Nucleated Red Blood Cells # 0.0 Sodium Level 145 H Potassium Level 4.1 Chloride Level 111 H Carbon Dioxide Level 26 Anion Gap 12 Blood Urea Nitrogen 13 Creatinine 0.91 Glucose Level 156 Calcium Level 9.0 Medications Medications Current Medications Carbamazepine (Tegretol Xr) 400 mg HS PO ; Start 12/31/16 at 21:00 Divalproex Sodium (Depakote Er) 500 mg HS PO ; Start 12/31/16 at 21:00 Gabapentin (Neurontin) 600 mg TID PO ; Start 12/31/16 at 09:00 Acetaminophen (Tylenol Tab) 650 mg Q4H PRN PO pain/fever; Start 12/31/16 at 01 :00 Hydralazine HCl (Apresoline) 25 mg Q6H PRN PO sbp>160; Start 12/31/16 at 01:00 Enalaprilat (Vasotec Iv) 1.25 mg Q6H PRN IV sbp>160; Start 12/31/16 at 01:00 Ondansetron HCl 4 mg 4 mg Q4H PRN IV nausea; Start 12/31/16 at 01:00 Potassium Chloride/Dextrose/ Sod Cl (D5-1/2ns + KCl 40 Meq) 1,000 ml @ 125 mls/ hr Q8H IV Last administered on 12/31/16 07:03; Admin Dose 125 MLS/HR; Start 12/31/16 at 01:00 Hydralazine HCl 10 mg 10 mg Q4H PRN IV ELEVATED SYSTOLIC BP; Start 12/31/16 at 05:30 Propofol 100 ml @ 3.205 mls/ hr TITRATE IV Last administered on 12/31/16 15: 56; Admin Dose 32.046 MLS/HR; Start 12/31/16 at 05:30 Fentanyl 100 ml @ 2.5 mls/hr TITRATE IV ; Start 12/31/16 at 16:30 Midazolam HCl (Versed) 50 ml @ 1 mls/hr TITRATE IV ; Start 12/31/16 at 16:30 TRENT NEWMAN Dec 31, 2016 16:45
[2016-12-31] MEDS: FENTAnyl (DRIP) 1000 mcg/100mL 100 ML IV SCH ×2 (16:57→23:12)
[2016-12-31] MEDS: MIDAZOLAM (DRIP) 50 mg/50 mL 50 ML IV SCH ×2 (18:13→23:12)
--- NOTE | 2016-12-31 18:34 | CONS ---
Date/Time of Note Date/Time of Note DATE: 12/31/16 TIME: 18:34 Consultation Date/Type/Reason Admit Date/Time Dec 31, 2016 at 00:30 Date of Consultation: Dec 31, 2016 Type of Consultation: pulm/cc Hx of Present Illness dictated # [id number] Social History Smoking Status: Never smoker Exam/Review of Systems Vital Signs Vitals Vital Signs Date Time Temp Pulse Resp B/P Pulse Ox O2 Delivery O2 Flow Rate FiO2 12/31/16 17:57 95 30 98 40 12/31/16 17:00 162/107 12/31/16 16:45 98.2 12/31/16 14:38 Mechanical Ventilator Intake and Output 12/30/16 12/30/16 12/31/16 15:00 23:00 07:00 Output Total 3450 ml Balance -3450 ml Results Result Diagram: 12/31/16 0534 12/31/16 0534 Results 24 hrs Laboratory Tests Test 12/30/16 19:25 12/30/16 21:00 12/30/16 22:39 12/31/16 00:52 White Blood Count 12.0 #H Red Blood Count 4.04 L Hemoglobin 12.5 L Hematocrit 36.7 L Mean Corpuscular Volume 90.8 Mean Corpuscular Hemoglobin 30.9 Mean Corpuscular Hemoglobin Concent 34.1 Red Cell Distribution Width 14.3 Platelet Count 203 Mean Platelet Volume 11.7 H Neutrophils % 73.3 Lymphocytes % 11.7 L Monocytes % 8.7 Eosinophils % 4.4 Basophils % 0.8 Nucleated Red Blood Cells % 0.0 Neutrophils # 8.8 H Lymphocytes # 1.4 Monocytes # 1.0 H Eosinophils # 0.5 Basophils # 0.1 Nucleated Red Blood Cells # 0.0 Prothrombin Time 11.1 L Prothrombin Time Ratio 0.9 INR International Normalized Ratio 0.80 Sodium Level 147 H Potassium Level 4.5 Chloride Level 111 H Carbon Dioxide Level 24 Anion Gap 17 H Blood Urea Nitrogen 12 Creatinine 1.08 Glucose Level 165 Calcium Level 9.0 Total Bilirubin 0.0 L Direct Bilirubin 0.00 Indirect Bilirubin 0.0 Aspartate Amino Transf (AST/SGOT) 36 Alanine Aminotransferase (ALT/SGPT) 45 Alkaline Phosphatase 137 H Total Protein 7.4 Albumin 4.3 Globulin 3.10 Albumin/Globulin Ratio 1.38 Salicylates Level < 1.0 L Acetaminophen Level < 10.0 L Valproic Acid (Depakene) Level 15 L Carbamazepine (Tegretol) Level 6.7 L Ethyl Alcohol Level < 10.0 Urine Color STRAW Urine Clarity CLEAR Urine pH 6.0 Urine Specific [place] 1.008 Urine Ketones NEGATIVE Urine Nitrite NEGATIVE Urine Bilirubin NEGATIVE Urine Urobilinogen NEGATIVE Urine Leukocyte Esterase NEGATIVE Urine Hemoglobin NEGATIVE Urine Glucose NEGATIVE Urine Total Protein NEGATIVE Urine Opiates Screen Negative Urine Barbiturates Negative Urine Amphetamines Screen Negative Urine Benzodiazepines Screen Negative Urine Cocaine Screen Negative Urine Cannabinoids Positive [place] Level 1.2 Blood Gas Specimen Source Blood venous Arterial Blood Date Drawn 12/31/2016 12:55:40 AM Arterial Blood Gas Puncture Site VENOUS LINE [place] Test N/A Venous Blood pH 7.394 Venous Blood pCO2 (Temp Corrected) 43.6 Venous Blood pO2 (Temp Corrected) 48.8 H Venous Blood HCO3 26.0 Venous Blood Oxygen Saturation 82.7 H Venous Blood Base Excess 0.9 Venous Blood Total Hemoglobin 13.0 Venous Blood Oxyhemoglobin 80.7 Venous Blood Methemoglobin 0.2 Carboxyhemoglobin 2.2 Blood Gas Temperature 37.0 Blood Gas Modality ROOM AIR FiO2 21.0 Blood Gas Notified Whom AA Blood Gas Notified Time 12/31/2016 1:03:47 AM Test 12/31/16 04:36 12/31/16 05:34 Blood Gas Specimen Source Blood arterial Arterial Blood Date Drawn 12/31/2016 5:52:00 AM Arterial Blood pH (Temp corrected) 7.366 Arterial Blood pCO2 (Temp correct) 46.2 H Arterial Blood pO2 (Temp corrected) 209.7 H Arterial Blood HCO3 25.9 Arterial Blood Base Excess 0.2 Arterial Blood Oxygen Saturation 98.8 H [place] Test ACCEPTAB Arterial Blood Gas Puncture Site Right Radial Arterial Blood Carboxyhemoglobin 0.4 Arterial Blood Methemoglobin 0.3 Blood Gas A-a O2 Differential 167.3 H Oxyhemoglobin Percent 98.1 Total Hemoglobin 12.5 Blood Gas Temperature 37.0 Blood Gas Respiration Rate 16.0 Blood Gas Actual Respiration Rate 19 Blood Gas Modality VENT - AC/VC+ FiO2 60.0 Blood Gas Inspiratory Time 0.8 Blood Gas Tidal Volume 600.0 Blood Gas Low PEEP Setting 5.0 Blood Gas Inspiratory Pressure 20.0 Blood Gas Notified Whom AA Blood Gas Notified Time 12/31/2016 6:05:00 AM White Blood Count 13.8 H Red Blood Count 3.97 L Hemoglobin 11.5 L Hematocrit 36.1 L Mean Corpuscular Volume 90.9 Mean Corpuscular Hemoglobin 29.0 Mean Corpuscular Hemoglobin Concent 31.9 L Red Cell Distribution Width 14.6 H Platelet Count 186 Mean Platelet Volume 12.7 H Neutrophils % 88.2 H Lymphocytes % 4.1 L Monocytes % 6.0 Eosinophils % 0.4 Basophils % 0.4 Nucleated Red Blood Cells % 0.0 Neutrophils # 12.2 H Lymphocytes # 0.6 L Monocytes # 0.8 Eosinophils # 0.1 Basophils # 0.1 Nucleated Red Blood Cells # 0.0 Sodium Level 145 H Potassium Level 4.1 Chloride Level 111 H Carbon Dioxide Level 26 Anion Gap 12 Blood Urea Nitrogen 13 Creatinine 0.91 Glucose Level 156 Calcium Level 9.0 Medications Medications Current Medications Carbamazepine (Tegretol Xr) 400 mg HS PO ; Start 12/31/16 at 21:00 Divalproex Sodium (Depakote Er) 500 mg HS PO ; Start 12/31/16 at 21:00 Gabapentin (Neurontin) 600 mg TID PO ; Start 12/31/16 at 09:00 Acetaminophen (Tylenol Tab) 650 mg Q4H PRN PO pain/fever; Start 12/31/16 at 01 :00 Hydralazine HCl (Apresoline) 25 mg Q6H PRN PO sbp>160; Start 12/31/16 at 01:00 Enalaprilat (Vasotec Iv) 1.25 mg Q6H PRN IV sbp>160; Start 12/31/16 at 01:00 Ondansetron HCl 4 mg 4 mg Q4H PRN IV nausea; Start 12/31/16 at 01:00 Potassium Chloride/Dextrose/ Sod Cl (D5-1/2ns + KCl 40 Meq) 1,000 ml @ 125 mls/ hr Q8H IV Last administered on 12/31/16 17:00; Admin Dose 125 MLS/HR; Start 12/31/16 at 01:00 Hydralazine HCl 10 mg 10 mg Q4H PRN IV ELEVATED SYSTOLIC BP; Start 12/31/16 at 05:30 Propofol 100 ml @ 3.205 mls/ hr TITRATE IV Last administered on 12/31/16 18: 12; Admin Dose 32.046 MLS/HR; Start 12/31/16 at 05:30 Fentanyl 100 ml @ 2.5 mls/hr TITRATE IV Last administered on 12/31/16 16:57 ; Admin Dose 10 MLS/HR; Start 12/31/16 at 16:30 Midazolam HCl (Versed) 50 ml @ 1 mls/hr TITRATE IV Last administered on 18:13; Admin Dose 10 MLS/HR; Start 12/31/16 at 16:30 Enoxaparin Sodium (Lovenox) 40 mg DAILY SC ; Start 01/01/17 at 09:00 Famotidine (Pepcid Iv) 20 mg BID IV ; Start 12/31/16 at 21:00 VU FLORES Dec 31, 2016 18:34
[2016-12-31] MEDS ORDERED: ENOXAPARIN 30 MG/0.3 ML SYG SC SCH (19:00)
--- NOTE | 2016-12-31 19:59 | CONS ---
DATE OF ADMISSION: 12/31/2016 DATE OF CONSULTATION: 12/31/2016 TIME OF EVALUATION: 6:30 p.m. REASON FOR REFERRAL: Evaluation of respiratory failure. HISTORY OF PRESENT ILLNESS: The patient is a 46-year-old male who was brought into the emergency room after the patient called 911 at home. Apparently, the patient had taken a lot of sedative medications and the patient was quite obtunded by the time he was seen in the ER and had to be intubated for airway protection. By the time I saw the patient, the patient was orally intubated and was requiring high dose combination sedatives to keep him calm and to keep him from pulling various lines and catheters. PAST MEDICAL HISTORY: 1. History of bipolar disorder. 2. Neuropathy. No other medical history available. MEDICATIONS: 1. At home are Xanax. 2. Tegretol. 3. Depakote. 4. Neurontin. In hospital, the patient is gettin. Propofol at 50 mcg/kg per minute. 2. Fentanyl 100 mcg per hour. 3. Versed at 10 mg per hour. 4. D5 half normal saline at 125 mL per hour. 5. Acetaminophen on a p.r.n. basis. 6. Depakote 500 mg daily. 7. Clonidine patch 0.2 mg q.72h. 8. Neurontin 600 mg t.i.d. 9. Haldol 5 mg was given x1. 10. Zofran on a p.r.n. basis. 11. Lovenox 40 mg a day. 12. DuoNeb q.6h. ALLERGIES: NONE. SOCIAL HISTORY: Not available. FAMILY HISTORY: Not available. The patient apparently does not have any family. Occupation history not available. REVIEW OF SYSTEMS: Unable to be obtained. PHYSICAL EXAMINATION: GENERAL: Young male, morbidly obese, orally intubated, currently sedated. VITAL SIGNS: Temperature is 98.2 degrees Fahrenheit, respiratory rate is 18 to 20 per minute, heart rate 95 per minute, blood pressure is 148/92, O2 sat is 98% . Patient is currently on assist control of 14, tidal volume 600, PEEP of 5, 40 % FIO2. HEENT: Supple neck, no JVD, no lymphadenopathy, midline trachea, no thyromegaly. Pupils are small bilaterally. Patient is edentulous. Orally intubated. CHEST: Diminished but clear breath sounds. HEART: S1, S2 audible. No murmurs, regular rhythm. ABDOMEN: Soft, protuberant. No organomegaly. Bowel sounds are audible. No scars are present. EXTREMITIES: No peripheral edema. Pulses 1+ bilaterally. There is no clubbing. CENTRAL NERVOUS SYSTEM: Patient currently is sedated. IMAGING: Chest x-ray was reviewed from today which is showing bilateral patchy infiltrates. CT of the head is unremarkable. The patient also had CT of the right foot which is showing metatarsal fracture. LABORATORY DATA: ABG at 4:36 a.m. on assist control of 16, tidal volume 600, PEEP of 5, 50% FIO2, pH 7.36, pCO2 of 46, pO2 of 209. Sodium 145, potassium 4.1 , chloride 111, bicarbonate 26, BUN 13, creatinine 0.9. White count 13.8, hemoglobin 11.5, platelet count of 186. ASSESSMENT AND PLAN: 1. Patient admitted with multi-drug overdose, leading to respiratory failure. 2. Possibly some element of aspiration pneumonia as a chest x-ray showing patchy bilateral infiltrates with mild leukocytosis. 3. History of severe bipolar disorder. RECOMMENDATIONS: Add Cefepime 1 gram IV q.12 h. Continue current supportive care. Obtain followup chest x-ray in 24 hours. Weaning from ventilator will depend upon adequate mental status recovery once off sedation. Dictated By: VU FISCHER/SHANELLE Conf#: [id number] DID#: [id number] MTDD
[2016-12-31] MEDS ORDERED: morphine (DRIP) 100 MG/100 ML 100 ML IV SCH (21:00)
[2016-12-31] MEDS ORDERED: FAMOTIDINE 20 MG INJ IV SCH (21:00)
[2016-12-31] MEDS ORDERED: morphine 10 MG INJ IV ONE (21:00)
[2016-12-31] MEDS: CEFEPIME 1GM/50 ML (PMX) 50 ML IVPB SCH (21:24)
[2016-12-31] MEDS: carBAMAZepine (XR) 100 MG TABSR PO SCH (21:25)
[2016-12-31] MEDS: DIVALPROEX (ER) 500 MG TAB PO SCH (21:31)
[2017-01-01] VITALS (93 sets, daily range): BP systolic 109–221; BP diastolic 59–145; PULSE 66–125; RESP 7–26
[2017-01-01] MEDS ORDERED: VECURONIUM 100 MG in DEXTROSE 5% 100 ML IV SCH ×2 (00:30→01:00)
[2017-01-01 00:35] LABS: AADO2 Arterial 136.5 mmHg (7.0-24.0); Allen Test ACCEPTAB; Arterial Base Excess -0.3 mmol/L (-3.0-3); Arterial COHb 0.3 % (0.0-3.0); Arterial Fraction of Oxyhgb 95.2 % (93.0-99.0); Arterial HCO3 26.3 mmol/L (22.0-26.0); Arterial MetHb 0.2 % (0.0-1.5); Arterial Total Hemglobin 12.7 g/dl (12.0-18.0); MODE VENT - AC
[2017-01-01] MEDS: D5W-0.45 NACL + KCL 40 MEQ 1,000 ML IV SCH ×3 (01:00→16:03)
[2017-01-01] MEDS: PROPOFOL 100 ML IV SCH ×5 (01:53→19:53)
[2017-01-01] MEDS: PANTOPRAZOLE 40 MG INJ IV SCH (05:25)
[2017-01-01] MEDS ORDERED: VECURONIUM BROMIDE IV SCH (05:31)
[2017-01-01] MEDS ORDERED: DEXTROSE 5% IV SCH (05:31)
[2017-01-01 06:34] LABS: ABNORMAL IP MESSAGE 1; BASOPHIL # 0.1 10^3/ul (0.0-0.1); BASOPHILS % 0.3 % (0.0-2.0); EOSINOPHILS # 0.2 10^3/ul (0.0-0.5); EOSINOPHILS % 1.3 % (0.0-7.0); HEMATOCRIT 36.4 % (42.0-52.0); HEMOGLOBIN 11.2 g/dl (14.0-18.0); LYMPHOCYTES # 1.7 10^3/ul (0.8-2.9); LYMPHOCYTES % 10.8 % (15.0-51.0); MEAN CORPUSCULAR HEMOGLOBIN 28.8 pg (29.0-33.0); MEAN CORPUSCULAR HGB CONC 30.8 g/dl (32.0-37.0); MEAN CORPUSCULAR VOLUME 93.6 fl (82.0-101.0); MEAN PLATELET VOLUME 12.2 fl (7.4-10.4); MONOCYTE # 1.5 10^3/ul (0.3-0.9); MONOCYTES % 9.8 % (0.0-11.0); NEUTROPHIL # 12.1 10^3/ul (1.6-7.5); NEUTROPHILS % 77.2 % (39.0-77.0); PLATELET COUNT 189 10^3/UL (140-415); POSITIVE DIFF @See below; RED BLOOD COUNT 3.89 10^6/ul (4.70-6.10); WHITE BLOOD COUNT 15.7 10^3/ul (4.8-10.8)
[2017-01-01 07:09] LABS: PHOSPHORUS 3.8 mg/dl (2.5-4.9)
[2017-01-01 07:16] LABS: CALCIUM 8.2 mg/dl (8.4-10.2); CREATININE 0.89 mg/dl (0.61-1.24); POTASSIUM 3.9 mmol/L (3.5-5.1)
[2017-01-01] MEDS: DEXTROSE 5% IV SCH ×3 (08:00→21:39)
[2017-01-01] MEDS: VECURONIUM BROMIDE IV SCH ×3 (08:00→21:39)
--- NOTE | 2017-01-01 08:29 | RADRPT ---
PROCEDURE: Chest 1 views. CLINICAL INDICATION: Shortness of breath. TECHNIQUE: AP views of the chest was obtained. COMPARISON: Yesterday FINDINGS: The heart is large. Endotracheal and nasogastric tubes are stable and appear in grossly appropriate location. Central pulmonary vascular congestion and interstitial prominence is seen in both lungs. P atchy infiltrates in both lungs have mildly decreased. Moderate residual remains. Elevated right hem idiaphragm is noted. Osseous structures are unchanged. IMPRESSION: Cardiomegaly . Central pulmonary vascular congestion and interstitial prominence in both lungs. Interval decrease in patchy infiltrates in both lungs. Moderate residual remains. RPTAT: AA .Nahid Russell MD, MD Date Time Electronically viewed and signed by .Nahid Russell MD, on 01/01/2017 08:29 .P/
[2017-01-01] MEDS: ENOXAPARIN 40 MG/0.4 ML SYG SC SCH (09:53)
[2017-01-01] MEDS: GABAPENTIN 300 MG CAP PO SCH ×3 (09:53→21:01)
[2017-01-01] MEDS: CEFEPIME 1GM/50 ML (PMX) 50 ML IVPB SCH ×2 (09:53→21:00)
--- NOTE | 2017-01-01 10:06 | PN ---
Date/Time of Note Date/Time of Note DATE: 01/01/17 TIME: 09:52 Assessment/Plan VTE Prophylaxis VTE Prophylaxis Intervention: LMWH Lines/Catheters IV Catheter Type (from Nrs): Peripheral IV Urinary Cath still in place: Yes Reason Cath still needed: other (indicate) (intubated, sedated and paralysed ) Assessment/Plan Assessment/Plan 46 yo male with: 1. Severe encephalopathy 2ry to drug abuse likely Bath salts and/or synthetic marijuana. Patient agitated, extremely combative despite Ativan and Haldol multiple doses given in the ER, had to be sedated and intubated because of danger to himself. Intubated, sedated with Fentanyl and Propofol and paralysed with Vec Likely encephalopathy secondary to drug use, cannabinoid synthetics and possibly bath salts. He also does have a history of bipolar disorder but he is levels are low so may be noncompliant with his outpatient antipsychotics and medications 2. Acute respiratory Failure 2ry to severe Encephalopathy from Drug overuse, intubated, sedated and paralysed. Also likely aspirated and with aspiration PNA vs pneumonitis. On cefepime 3. Bipolar disorder: Likely noncompliant with psychiatric medications. Will resume once able to access p.o. or more awake 4. Right foot Lisfranc fracture: Pain control and ? splint Prophylaxis: Lovenox for DVT prophylaxis, Pepcid for GI prophylaxis Disposition: ICU monitoring, intubated, sedated and paralysed. Subjective 24 Hr Interval Summary Free Text/Dictation Patient had to be paralysed since has been agitated despite multiple maxed out sedating agents On vent and Hypertensive too Exam/Review of Systems Vital Signs Vitals Vital Signs Date Time Temp Pulse Resp B/P Pulse Ox O2 Delivery O2 Flow Rate FiO2 01/01/17 08:00 98.5 113 19 167/101 98 Mechanical Ventilator 01/01/17 07:51 40 Intake and Output 12/31/16 12/31/16 01/01/17 15:00 23:00 07:00 Intake Total 1134.184 ml 1297.992 ml Output Total 310 ml 495 ml Balance 824.184 ml 802.992 ml Exam Constitutional: other (sedated and paralysed, also intubated ) Respiratory: diminished breath sounds (bases ), other (on Vent ) Cardiovascular: nl pulses, regular rate and rhythm Gastrointestinal: non-tender, soft Musculoskeletal: other (right foot Lisfranc fracture with edema and bruises ) Extremities: normal pulses Neurological: [employer] II-XII intact, nl mental status, nl speech, nl strength Results Result Diagram: 01/01/17 0534 01/01/17 0534 Results 24 hrs Laboratory Tests Test 01/01/17 00:02 01/01/17 05:34 Blood Gas Specimen Source Blood arterial Arterial Blood Date Drawn 01/01/2017 12:28:35 AM Arterial Blood pH (Temp corrected) 7.327 L Arterial Blood pCO2 (Temp correct) 51.4 H Arterial Blood pO2 (Temp corrected) 89.6 Arterial Blood HCO3 26.3 H Arterial Blood Base Excess -0.3 Arterial Blood Oxygen Saturation 95.7 [place] Test ACCEPTAB Arterial Blood Gas Puncture Site Right Radial Arterial Blood Carboxyhemoglobin 0.3 Arterial Blood Methemoglobin 0.2 Blood Gas A-a O2 Differential 136.5 H Oxyhemoglobin Percent 95.2 Total Hemoglobin 12.7 Blood Gas Temperature 37.0 Blood Gas Respiration Rate 16.0 Blood Gas Actual Respiration Rate 22 Blood Gas Modality VENT - AC FiO2 40.0 Blood Gas Tidal Volume 600.0 Blood Gas Low PEEP Setting 5.0 Blood Gas Inspiratory Pressure 12.0 Blood Gas Notified Whom BR Blood Gas Notified Time 01/01/2017 12:35:19 AM White Blood Count 15.7 H Red Blood Count 3.89 L Hemoglobin 11.2 L Hematocrit 36.4 L Mean Corpuscular Volume 93.6 Mean Corpuscular Hemoglobin 28.8 L Mean Corpuscular Hemoglobin Concent 30.8 L Red Cell Distribution Width 15.0 H Platelet Count 189 Mean Platelet Volume 12.2 H Neutrophils % 77.2 H Lymphocytes % 10.8 L Monocytes % 9.8 Eosinophils % 1.3 Basophils % 0.3 Nucleated Red Blood Cells % 0.0 Neutrophils # 12.1 H Lymphocytes # 1.7 Monocytes # 1.5 H Eosinophils # 0.2 Basophils # 0.1 Nucleated Red Blood Cells # 0.0 Sodium Level 145 H Potassium Level 3.9 Chloride Level 110 Carbon Dioxide Level 28 Anion Gap 11 Blood Urea Nitrogen 13 Creatinine 0.89 Glucose Level 153 Calcium Level 8.2 L Phosphorus Level 3.8 Magnesium Level 2.0 Medications Medications Current Medications Carbamazepine (Tegretol Xr) 400 mg HS PO Last administered on 12/31/16t 21:25 ; Admin Dose 400 MG; Start 12/31/16 at 21:00 Divalproex Sodium (Depakote Er) 500 mg HS PO Last administered on 12/31/16 21 :31; Admin Dose 500 MG; Start 12/31/16 at 21:00 Gabapentin (Neurontin) 600 mg TID PO Last administered on 12/31/16 21:24; Admin Dose 600 MG; Start 12/31/16 at 09:00 Acetaminophen (Tylenol Tab) 650 mg Q4H PRN PO pain/fever; Start 12/31/16 at 01 :00 Hydralazine HCl (Apresoline) 25 mg Q6H PRN PO sbp>160; Start 12/31/16 at 01:00 Enalaprilat (Vasotec Iv) 1.25 mg Q6H PRN IV sbp>160; Start 12/31/16 at 01:00 Ondansetron HCl 4 mg 4 mg Q4H PRN IV nausea; Start 12/31/16 at 01:00 Potassium Chloride/Dextrose/ Sod Cl (D5-1/2ns + KCl 40 Meq) 1,000 ml @ 125 mls/ hr Q8H IV Last administered on 01/01/17 04:15; Admin Dose 125 MLS/HR; Start 12/31/16 at 01:00 Hydralazine HCl 10 mg 10 mg Q4H PRN IV ELEVATED SYSTOLIC BP; Start 12/31/16 at 05:30 Propofol 100 ml @ 3.205 mls/ hr TITRATE IV Last administered on 01/01/17 05: 31; Admin Dose 12.818 MLS/HR; Start 12/31/16 at 05:30 Fentanyl 100 ml @ 2.5 mls/hr TITRATE IV Last administered on 12/31/16 23:12 ; Admin Dose 10 MLS/HR; Start 12/31/16 at 16:30 Midazolam HCl (Versed) 50 ml @ 1 mls/hr TITRATE IV Last administered on 23:12; Admin Dose 10 MLS/HR; Start 12/31/16 at 16:30 Enoxaparin Sodium 40 mg 40 mg DAILY SC ; Start 01/01/17 at 09:00 Cefepime HCl (Maxipime 1gm/50 ml (Pmx)) 50 ml @ 100 mls/hr Q12 IVPB Last administered on 12/31/16 21:24; Admin Dose 100 MLS/HR; Start 12/31/16 at 20: 00 Pantoprazole (Protonix Iv) 40 mg DAILY@06 IV Last administered on 01/01/17 05 :25; Admin Dose 40 MG; Start 01/01/17 at 06:00 Enoxaparin Sodium 30 mg 30 mg DAILY SC ; Start 12/31/16 at 19:00; Status UNV Morphine Sulfate/ Sodium Chloride 100 ml @ 1 mls/hr TITRATE IV Last administered on 12/31/16 22:07; Admin Dose 1 MLS/HR; Start 12/31/16 at 21:00 Vecuronium [place]/Dextrose (Vecuronium [place]/D5W) 100 ml @ 6.03 mls/hr TITRATE IV Last administered on 01/01/17 08:00; Admin Dose 7.23 MLS/HR; Start 01/01/17 at 06:00 TRENT NEWMAN Jan 01, 2017 10:02
[2017-01-01] MEDS: FENTAnyl (DRIP) 1000 mcg/100mL 100 ML IV SCH ×2 (10:56→19:54)
[2017-01-01] MEDS: hydrALAzine 20 MG INJ IV PRN ×2 (10:57→18:48)
--- NOTE | 2017-01-01 11:43 | CONS ---
Date/Time of Note Date/Time of Note DATE: 01/01/17 TIME: 11:40 Assessment/Plan Assessment/Plan Chief Complaint/Hosp Course dictated # [id number] Problems: Additional Assessment/Plan Ventilator setting; AC of 16, tidal volume 600, PEEP of 5, 40% FiO2. Patient currently on propofol 25 mics per kilogram per minute, fentanyl 80 mics per minute, vecuronium drip via protocol. Chest x-ray was reviewed from today which is showing patchy bilateral infiltrates. Assessment and recommendations; 1. Patient admitted with multidrug overdose resulting in respiratory failure and severe agitation requiring high-dose intravenous sedatives as well as intravenous continuous paralytic agent. 2. Possibly bilateral pneumonia. Continue current treatment. Wean off paralytics as tolerated. When the patient is off continuous paralysis he will be given a sedation vacation to assess mental status. Meanwhile continue current antibiotics. Weaning from ventilator will depend upon adequate mental status recovery. 35 minutes of critical care time was spent evaluating the patient. Consultation Date/Type/Reason Admit Date/Time Dec 31, 2016 at 00:30 Initial Consult Date 12/31/16 Type of Consultation: pulm/cc 24 HR Interval Summary Free Text/Dictation Patient's condition remains critical. Patient is currently on high-dose sedatives and continuous intravenous paralytics due to extreme agitation and tachypnea. General exam; middle-aged male, morbidly obese, orally intubated, sedated and paralyzed. Currently in no distress. Exam/Review of Systems Vital Signs Vitals Vital Signs Date Time Temp Pulse Resp B/P Pulse Ox O2 Delivery O2 Flow Rate FiO2 01/01/17 08:00 81 01/01/17 08:00 98.5 19 167/101 98 Mechanical Ventilator 01/01/17 07:51 40 Intake and Output 12/31/16 12/31/16 01/01/17 15:00 23:00 07:00 Intake Total 1134.184 ml 1297.992 ml Output Total 310 ml 495 ml Balance 824.184 ml 802.992 ml Exam HEENT exam; supple neck, no JVD. No lymphadenopathy. Midline trachea. No thyromegaly. Orally intubated. Patient is edentulous. Pupils are small bilaterally. Chest exam; diminished but clear breath sounds. S1-S2 audible, no murmurs. Regular rhythm. Abdomen exam; soft, nondistended. No organomegaly. Bowel sounds are absent. Extremity exam; no peripheral edema. Pulses 1+ bilaterally. POSTDOCTORAL SCHOLAR exam; patient is sedated and paralyzed. Results Result Diagram: 01/01/17 0534 01/01/17 0534 Results 24 hrs Laboratory Tests Test 01/01/17 00:02 01/01/17 05:34 Blood Gas Specimen Source Blood arterial Arterial Blood Date Drawn 01/01/2017 12:28:35 AM Arterial Blood pH (Temp corrected) 7.327 L Arterial Blood pCO2 (Temp correct) 51.4 H Arterial Blood pO2 (Temp corrected) 89.6 Arterial Blood HCO3 26.3 H Arterial Blood Base Excess -0.3 Arterial Blood Oxygen Saturation 95.7 [place] Test ACCEPTAB Arterial Blood Gas Puncture Site Right Radial Arterial Blood Carboxyhemoglobin 0.3 Arterial Blood Methemoglobin 0.2 Blood Gas A-a O2 Differential 136.5 H Oxyhemoglobin Percent 95.2 Total Hemoglobin 12.7 Blood Gas Temperature 37.0 Blood Gas Respiration Rate 16.0 Blood Gas Actual Respiration Rate 22 Blood Gas Modality VENT - AC FiO2 40.0 Blood Gas Tidal Volume 600.0 Blood Gas Low PEEP Setting 5.0 Blood Gas Inspiratory Pressure 12.0 Blood Gas Notified Whom BR Blood Gas Notified Time 01/01/2017 12:35:19 AM White Blood Count 15.7 H Red Blood Count 3.89 L Hemoglobin 11.2 L Hematocrit 36.4 L Mean Corpuscular Volume 93.6 Mean Corpuscular Hemoglobin 28.8 L Mean Corpuscular Hemoglobin Concent 30.8 L Red Cell Distribution Width 15.0 H Platelet Count 189 Mean Platelet Volume 12.2 H Neutrophils % 77.2 H Lymphocytes % 10.8 L Monocytes % 9.8 Eosinophils % 1.3 Basophils % 0.3 Nucleated Red Blood Cells % 0.0 Neutrophils # 12.1 H Lymphocytes # 1.7 Monocytes # 1.5 H Eosinophils # 0.2 Basophils # 0.1 Nucleated Red Blood Cells # 0.0 Sodium Level 145 H Potassium Level 3.9 Chloride Level 110 Carbon Dioxide Level 28 Anion Gap 11 Blood Urea Nitrogen 13 Creatinine 0.89 Glucose Level 153 Calcium Level 8.2 L Phosphorus Level 3.8 Magnesium Level 2.0 Medications Medications Current Medications Carbamazepine (Tegretol Xr) 400 mg HS PO Last administered on 12/31/16t 21:25 ; Admin Dose 400 MG; Start 12/31/16 at 21:00 Divalproex Sodium (Depakote Er) 500 mg HS PO Last administered on 12/31/16 21 :31; Admin Dose 500 MG; Start 12/31/16 at 21:00 Gabapentin (Neurontin) 600 mg TID PO Last administered on 01/01/17 09:53; Admin Dose 600 MG; Start 12/31/16 at 09:00 Acetaminophen (Tylenol Tab) 650 mg Q4H PRN PO pain/fever; Start 12/31/16 at 01 :00 Hydralazine HCl (Apresoline) 25 mg Q6H PRN PO sbp>160; Start 12/31/16 at 01:00 Enalaprilat (Vasotec Iv) 1.25 mg Q6H PRN IV sbp>160; Start 12/31/16 at 01:00 Ondansetron HCl 4 mg 4 mg Q4H PRN IV nausea; Start 12/31/16 at 01:00 Potassium Chloride/Dextrose/ Sod Cl (D5-1/2ns + KCl 40 Meq) 1,000 ml @ 125 mls/ hr Q8H IV Last administered on 01/01/17 04:15; Admin Dose 125 MLS/HR; Start 12/31/16 at 01:00 Hydralazine HCl 10 mg 10 mg Q4H PRN IV ELEVATED SYSTOLIC BP Last administered on 01/01/17 10:57; Admin Dose 10 MG; Start 12/31/16 at 05:30 Propofol 100 ml @ 3.205 mls/ hr TITRATE IV Last administered on 01/01/17 11: 05; Admin Dose 19.228 MLS/HR; Start 12/31/16 at 05:30 Fentanyl 100 ml @ 2.5 mls/hr TITRATE IV Last administered on 01/01/17 10:56 ; Admin Dose 8 MLS/HR; Start 12/31/16 at 16:30 Midazolam HCl (Versed) 50 ml @ 1 mls/hr TITRATE IV Last administered on 23:12; Admin Dose 10 MLS/HR; Start 12/31/16 at 16:30 Enoxaparin Sodium 40 mg 40 mg DAILY SC ; Start 01/01/17 at 09:00 Cefepime HCl (Maxipime 1gm/50 ml (Pmx)) 50 ml @ 100 mls/hr Q12 IVPB Last administered on 01/01/17 09:53; Admin Dose 100 MLS/HR; Start 12/31/16 at 20: 00 Pantoprazole (Protonix Iv) 40 mg DAILY@06 IV Last administered on 01/01/17 05 :25; Admin Dose 40 MG; Start 01/01/17 at 06:00 Enoxaparin Sodium 30 mg 30 mg DAILY SC ; Start 12/31/16 at 19:00; Status UNV Morphine Sulfate/ Sodium Chloride 100 ml @ 1 mls/hr TITRATE IV Last administered on 12/31/16 22:07; Admin Dose 1 MLS/HR; Start 12/31/16 at 21:00 Vecuronium [place]/Dextrose (Vecuronium [place]/D5W) 100 ml @ 6.03 mls/hr TITRATE IV Last administered on 01/01/17 11:05; Admin Dose 7.23 MLS/HR; Start 01/01/17 at 06:00 VU FLORES Jan 01, 2017 11:43
[2017-01-01] MEDS: LABETALOL HCL 20MG INJ IV PRN (15:21)
[2017-01-01] MEDS: MIDAZOLAM (DRIP) 50 mg/50 mL 50 ML IV SCH (19:54)
[2017-01-01] MEDS: carBAMAZepine (XR) 100 MG TABSR PO SCH (21:01)
[2017-01-01] MEDS: DIVALPROEX (ER) 500 MG TAB PO SCH (21:01)
[2017-01-02] VITALS (84 sets, daily range): BP systolic 114–212; BP diastolic 58–133; PULSE 58–117; RESP 14–24
[2017-01-02] MEDS: D5W-0.45 NACL + KCL 40 MEQ 1,000 ML IV SCH ×3 (00:15→17:21)
[2017-01-02] MEDS: PROPOFOL 100 ML IV SCH ×5 (00:15→22:32)
[2017-01-02] MEDS: MIDAZOLAM (DRIP) 50 mg/50 mL 50 ML IV SCH ×4 (00:20→19:34)
[2017-01-02] MEDS: PANTOPRAZOLE 40 MG INJ IV SCH (05:31)
[2017-01-02] MEDS: FENTAnyl (DRIP) 1000 mcg/100mL 100 ML IV SCH ×3 (05:31→19:34)
[2017-01-02 05:35] LABS: BASOPHILS % 0.3 % (0.0-2.0); EOSINOPHILS # 0.1 10^3/ul (0.0-0.5); EOSINOPHILS % 0.6 % (0.0-7.0); HEMATOCRIT 35.5 % (42.0-52.0); HEMOGLOBIN 11.2 g/dl (14.0-18.0); LYMPHOCYTES # 0.7 10^3/ul (0.8-2.9); LYMPHOCYTES % 6.6 % (15.0-51.0); MEAN CORPUSCULAR HEMOGLOBIN 29.3 pg (29.0-33.0); MEAN CORPUSCULAR HGB CONC 31.5 g/dl (32.0-37.0); MEAN CORPUSCULAR VOLUME 92.9 fl (82.0-101.0); MEAN PLATELET VOLUME 11.8 fl (7.4-10.4); MONOCYTES % 8.9 % (0.0-11.0); NEUTROPHIL # 9.3 10^3/ul (1.6-7.5); PLATELET COUNT 211 10^3/UL (140-415); RED BLOOD COUNT 3.82 10^6/ul (4.70-6.10); RED CELL DISTRIBUTION WIDTH 14.5 % (11.5-14.5); WHITE BLOOD COUNT 11.2 10^3/ul (4.8-10.8)
[2017-01-02 06:26] LABS: CALCIUM 7.9 mg/dl (8.4-10.2); CREATININE 0.77 mg/dl (0.61-1.24); POTASSIUM 4.7 mmol/L (3.5-5.1)
[2017-01-02 06:31] LABS: MAGNESIUM 2.1 mg/dl (1.7-2.5); PHOSPHORUS 3.6 mg/dl (2.5-4.9)
[2017-01-02] MEDS: hydrALAzine 20 MG INJ IV PRN ×2 (07:51→13:12)
[2017-01-02] MEDS: GABAPENTIN 300 MG CAP PO SCH ×3 (09:33→20:03)
[2017-01-02] MEDS: CEFEPIME 1GM/50 ML (PMX) 50 ML IVPB SCH ×2 (09:34→20:03)
[2017-01-02] MEDS: ENOXAPARIN 40 MG/0.4 ML SYG SC SCH (09:44)
--- NOTE | 2017-01-02 10:28 | CONS ---
Date/Time of Note Date/Time of Note DATE: 01/02/17 TIME: 10:28 Assessment/Plan Assessment/Plan Chief Complaint/Hosp Course dictated # [id number] Problems: Consultation Date/Type/Reason Admit Date/Time Dec 31, 2016 at 00:30 Initial Consult Date 12/31/16 Type of Consultation: pulm/cc 24 HR Interval Summary Free Text/Dictation dictated [id number] Exam/Review of Systems Vital Signs Vitals Vital Signs Date Time Temp Pulse Resp B/P Pulse Ox O2 Delivery O2 Flow Rate FiO2 01/02/17 05:21 69 16 97 60 01/02/17 04:30 132/77 Mechanical Ventilator 01/02/17 04:00 98.5 Intake and Output 01/01/17 01/01/17 01/02/17 15:00 23:00 07:00 Intake Total 1309.31 ml 943.472 ml 978.728 ml Output Total 1200 ml 970 ml 1350 ml Balance 109.31 ml -26.528 ml -371.272 ml Results Result Diagram: 01/02/17 0441 01/02/17 0441 Results 24 hrs Laboratory Tests Test 01/02/17 04:41 White Blood Count 11.2 #H Red Blood Count 3.82 L Hemoglobin 11.2 L Hematocrit 35.5 L Mean Corpuscular Volume 92.9 Mean Corpuscular Hemoglobin 29.3 Mean Corpuscular Hemoglobin Concent 31.5 L Red Cell Distribution Width 14.5 Platelet Count 211 Mean Platelet Volume 11.8 H Neutrophils % 83.0 H Lymphocytes % 6.6 L Monocytes % 8.9 Eosinophils % 0.6 Basophils % 0.3 Nucleated Red Blood Cells % 0.0 Neutrophils # 9.3 H Lymphocytes # 0.7 L Monocytes # 1.0 H Eosinophils # 0.1 Basophils # 0.0 Nucleated Red Blood Cells # 0.0 Sodium Level 144 Potassium Level 4.7 Chloride Level 107 Carbon Dioxide Level 29 Anion Gap 13 Blood Urea Nitrogen 14 Creatinine 0.77 Glucose Level 165 Calcium Level 7.9 L Phosphorus Level 3.6 Magnesium Level 2.1 Medications Medications Current Medications Carbamazepine (Tegretol Xr) 400 mg HS PO Last administered on 01/01/17t 21:01 ; Admin Dose 400 MG; Start 12/31/16 at 21:00 Divalproex Sodium (Depakote Er) 500 mg HS PO Last administered on 01/01/17 21 :01; Admin Dose 500 MG; Start 12/31/16 at 21:00 Gabapentin (Neurontin) 600 mg TID PO Last administered on 01/02/17 09:33; Admin Dose 600 MG; Start 12/31/16 at 09:00 Acetaminophen (Tylenol Tab) 650 mg Q4H PRN PO pain/fever; Start 12/31/16 at 01 :00 Hydralazine HCl (Apresoline) 25 mg Q6H PRN PO sbp>160; Start 12/31/16 at 01:00 Enalaprilat (Vasotec Iv) 1.25 mg Q6H PRN IV sbp>160; Start 12/31/16 at 01:00 Ondansetron HCl 4 mg 4 mg Q4H PRN IV nausea; Start 12/31/16 at 01:00 Potassium Chloride/Dextrose/ Sod Cl (D5-1/2ns + KCl 40 Meq) 1,000 ml @ 125 mls/ hr Q8H IV Last administered on 01/02/17 09:34; Admin Dose 125 MLS/HR; Start 12/31/16 at 01:00 Hydralazine HCl 10 mg 10 mg Q4H PRN IV ELEVATED SYSTOLIC BP Last administered on 01/02/17 07:51; Admin Dose 10 MG; Start 12/31/16 at 05:30 Propofol 100 ml @ 3.205 mls/ hr TITRATE IV Last administered on 01/02/17 05: 02; Admin Dose 19.228 MLS/HR; Start 12/31/16 at 05:30 Fentanyl 100 ml @ 2.5 mls/hr TITRATE IV Last administered on 01/02/17 05:31 ; Admin Dose 9 MLS/HR; Start 12/31/16 at 16:30 Midazolam HCl (Versed) 50 ml @ 1 mls/hr TITRATE IV Last administered on 09:34; Admin Dose 10 MLS/HR; Start 12/31/16 at 16:30 Enoxaparin Sodium 40 mg 40 mg DAILY SC Last administered on 01/02/17 09:44; Admin Dose 40 MG; Start 01/01/17 at 09:00 Cefepime HCl (Maxipime 1gm/50 ml (Pmx)) 50 ml @ 100 mls/hr Q12 IVPB Last administered on 01/02/17 09:34; Admin Dose 100 MLS/HR; Start 12/31/16 at 20: 00 Pantoprazole 40 mg 40 mg DAILY@06 IV Last administered on 01/02/17 05:31; Admin Dose 40 MG; Start 01/01/17 at 06:00 Morphine Sulfate/ Sodium Chloride 100 ml @ 1 mls/hr TITRATE IV Last administered on 12/31/16 22:07; Admin Dose 1 MLS/HR; Start 12/31/16 at 21:00 Vecuronium [place]/Dextrose (Vecuronium [place]/D5W) 100 ml @ 6.03 mls/hr TITRATE IV Last administered on 01/01/17 21:39; Admin Dose 6.03 MLS/HR; Start 01/01/17 at 06:00 Labetalol HCl (Labetalol) 10 mg Q4H PRN IV SBP GREATER THAN 160 Last administered on 01/01/17 15:21; Admin Dose 10 MG; Start 01/01/17 at 12:00 VU FLORES Jan 02, 2017 10:28
[2017-01-02 11:16] LABS: AADO2 Arterial 282.3 mmHg (7.0-24.0); Allen Test ACCEPTAB; Arterial Base Excess 0.5 mmol/L (-3.0-3); Arterial COHb 0 % (0.0-3.0); Arterial Fraction of Oxyhgb 96.3 % (93.0-99.0); Arterial HCO3 26.5 mmol/L (22.0-26.0); Arterial MetHb 0.2 % (0.0-1.5); Arterial Total Hemglobin 12.4 g/dl (12.0-18.0); MODE VENT - AC
--- NOTE | 2017-01-02 11:55 | PN ---
Date/Time of Note Date/Time of Note DATE: 01/02/17 TIME: 11:49 Assessment/Plan VTE Prophylaxis VTE Prophylaxis Intervention: LMWH Lines/Catheters IV Catheter Type (from Nrs): Peripheral IV Urinary Cath still in place: Yes Reason Cath still needed: other (indicate) (sedated, intubated and vented ) Assessment/Plan Assessment/Plan 46 yo male with: 1. Severe encephalopathy 2ry to drug abuse likely Bath salts and/or synthetic marijuana. Patient agitated, extremely combative despite Ativan and Haldol multiple doses given in the ER, had to be sedated and intubated because of danger to himself. Intubated, sedated with Versed, Fentanyl and Propofol and paralysed with Vec Likely encephalopathy secondary to drug use, cannabinoid synthetics and possibly bath salts. He also does have a history of bipolar disorder but he is levels are low so may be noncompliant with his outpatient antipsychotics and medications Will repeat CT and EEG was ordered too Patent needs PICC line placed for IV access as on Vec and multiple sedating agents 2. Acute respiratory Failure 2ry to severe Encephalopathy from Drug overuse, intubated, sedated and paralysed. Also likely aspirated and with aspiration PNA vs pneumonitis. On cefepime, WBC trending down 3. Bipolar disorder: Likely noncompliant with psychiatric medications. Will resume once able to access p.o. or more awake 4. Right foot Lisfranc fracture: Pain control and ? splint Prophylaxis: Lovenox for DVT prophylaxis, Pepcid for GI prophylaxis Disposition: ICU monitoring, intubated, sedated and paralysed. CT head to be repeated and agree with EEG but not be that informative Patient does need a central Line , PICC line is medically necessary for multiple sedative agents and paralytics Subjective 24 Hr Interval Summary Free Text/Dictation Patient still under sedation and paralytics Intubated Encephalopathic, WBC coming down. Afebrile and on Abx PICC line is medically necessary for multiple sedative agents and paralytics Exam/Review of Systems Vital Signs Vitals Vital Signs Date Time Temp Pulse Resp B/P Pulse Ox O2 Delivery O2 Flow Rate FiO2 01/02/17 11:30 80 16 98 60 01/02/17 04:30 132/77 Mechanical Ventilator 01/02/17 04:00 98.5 Intake and Output 1001/01/17 01/02/17 14:59 22:59 06:59 Intake Total 1307.31 ml 939.854 ml 1140.576 ml Output Total 1200 ml 1000 ml 1470 ml Balance 107.31 ml -60.146 ml -329.424 ml Exam Constitutional: other (sedated, paralysed and intubated ) Respiratory: wheezing (some diffuse ) Cardiovascular: nl pulses, regular rate and rhythm Gastrointestinal: non-tender, soft Musculoskeletal: nl extremities to inspection, nl gait and stance Extremities: normal pulses Neurological: unresponsive (while sedated, intubated and vented ) Results Result Diagram: 01/02/171 01/02/17 0441 Results 24 hrs Laboratory Tests Test 01/02/17 04:41 01/02/17 08:43 White Blood Count 11.2 #H Red Blood Count 3.82 L Hemoglobin 11.2 L Hematocrit 35.5 L Mean Corpuscular Volume 92.9 Mean Corpuscular Hemoglobin 29.3 Mean Corpuscular Hemoglobin Concent 31.5 L Red Cell Distribution Width 14.5 Platelet Count 211 Mean Platelet Volume 11.8 H Neutrophils % 83.0 H Lymphocytes % 6.6 L Monocytes % 8.9 Eosinophils % 0.6 Basophils % 0.3 Nucleated Red Blood Cells % 0.0 Neutrophils # 9.3 H Lymphocytes # 0.7 L Monocytes # 1.0 H Eosinophils # 0.1 Basophils # 0.0 Nucleated Red Blood Cells # 0.0 Sodium Level 144 Potassium Level 4.7 Chloride Level 107 Carbon Dioxide Level 29 Anion Gap 13 Blood Urea Nitrogen 14 Creatinine 0.77 Glucose Level 165 Calcium Level 7.9 L Phosphorus Level 3.6 Magnesium Level 2.1 Blood Gas Specimen Source Blood arterial Arterial Blood Date Drawn 01/02/2017 8:49:02 AM Arterial Blood pH (Temp corrected) 7.358 Arterial Blood pCO2 (Temp correct) 48.2 H Arterial Blood pO2 (Temp corrected) 92.5 Arterial Blood HCO3 26.5 H Arterial Blood Base Excess 0.5 Arterial Blood Oxygen Saturation 96.5 [place] Test ACCEPTAB Arterial Blood Gas Puncture Site Right Radial Arterial Blood Carboxyhemoglobin 0 Arterial Blood Methemoglobin 0.2 Blood Gas A-a O2 Differential 282.3 H Oxyhemoglobin Percent 96.3 Total Hemoglobin 12.4 Blood Gas Temperature 37.0 Blood Gas Respiration Rate 16.0 Blood Gas Actual Respiration Rate 16 Blood Gas Modality VENT - AC FiO2 60.0 Blood Gas Tidal Volume 600.0 Blood Gas Low PEEP Setting 5.0 Blood Gas Notified Whom AT Blood Gas Notified Time 01/02/2017 9:00:15 AM Medications Medications Current Medications Carbamazepine (Tegretol Xr) 400 mg HS PO Last administered on 01/01/17 21:01 ; Admin Dose 400 MG; Start 12/31/16 at 21:00 Divalproex Sodium (Depakote Er) 500 mg HS PO Last administered on 01/01/17 21 :01; Admin Dose 500 MG; Start 12/31/16 at 21:00 Gabapentin (Neurontin) 600 mg TID PO Last administered on 01/02/17 09:33; Admin Dose 600 MG; Start 12/31/16 at 09:00 Acetaminophen (Tylenol Tab) 650 mg Q4H PRN PO pain/fever; Start 12/31/16 at 01 :00 Hydralazine HCl (Apresoline) 25 mg Q6H PRN PO sbp>160; Start 12/31/16 at 01:00 Enalaprilat (Vasotec Iv) 1.25 mg Q6H PRN IV sbp>160; Start 12/31/16 at 01:00 Ondansetron HCl 4 mg 4 mg Q4H PRN IV nausea; Start 12/31/16 at 01:00 Potassium Chloride/Dextrose/ Sod Cl (D5-1/2ns + KCl 40 Meq) 1,000 ml @ 125 mls/ hr Q8H IV Last administered on 01/02/17 09:34; Admin Dose 125 MLS/HR; Start 12/31/16 at 01:00 Hydralazine HCl 10 mg 10 mg Q4H PRN IV ELEVATED SYSTOLIC BP Last administered on 01/02/17 07:51; Admin Dose 10 MG; Start 12/31/16 at 05:30 Propofol 100 ml @ 3.205 mls/ hr TITRATE IV Last administered on 01/02/17 05: 02; Admin Dose 19.228 MLS/HR; Start 12/31/16 at 05:30 Fentanyl 100 ml @ 2.5 mls/hr TITRATE IV Last administered on 01/02/17 05:31 ; Admin Dose 9 MLS/HR; Start 12/31/16 at 16:30 Midazolam HCl (Versed) 50 ml @ 1 mls/hr TITRATE IV Last administered on 09:34; Admin Dose 10 MLS/HR; Start 12/31/16 at 16:30 Enoxaparin Sodium 40 mg 40 mg DAILY SC Last administered on 01/02/17 09:44; Admin Dose 40 MG; Start 01/01/17 at 09:00 Cefepime HCl (Maxipime 1gm/50 ml (Pmx)) 50 ml @ 100 mls/hr Q12 IVPB Last administered on 01/02/17 09:34; Admin Dose 100 MLS/HR; Start 12/31/16 at 20: 00 Pantoprazole 40 mg 40 mg DAILY@06 IV Last administered on 01/02/17 05:31; Admin Dose 40 MG; Start 01/01/17 at 06:00 Morphine Sulfate/ Sodium Chloride 100 ml @ 1 mls/hr TITRATE IV Last administered on 12/31/16 22:07; Admin Dose 1 MLS/HR; Start 12/31/16 at 21:00 Vecuronium [place]/Dextrose (Vecuronium [place]/D5W) 100 ml @ 6.03 mls/hr TITRATE IV Last administered on 01/01/17 21:39; Admin Dose 6.03 MLS/HR; Start 01/01/17 at 06:00 Labetalol HCl (Labetalol) 10 mg Q4H PRN IV SBP GREATER THAN 160 Last administered on 01/01/17 15:21; Admin Dose 10 MG; Start 01/01/17 at 12:00 TRENT NEWMAN Jan 02, 2017 11:55
[2017-01-02] MEDS ORDERED: LIDOCAINE 1% (MPF) 5 ML VIAL SC ONE (12:30)
--- NOTE | 2017-01-02 13:05 | RADRPT ---
PROCEDURE: CT Brain without contrast. CLINICAL INDICATION: Change in mental status TECHNIQUE: A CT of the brain was performed on a multidetector CT scanner utilizing axial imaging f rom the skull base through the vertex without IV contrast. Multiplanar reformatted images were made . Images were reviewed on a PACS workstation. The CTDIvol is 42 mGy and the DLP is 720 mGycm. Individualized dosed optimization technique was used for the performance of this exam. This included 1. Automated exposure control. 2. Adjustment of the mA and / or kV according to the patient's size. 3. The use of iterative reconstruction technique. COMPARISON: CT head CT December 30, FINDINGS: There is no intracranial hemorrhage, mass effect, or midline shift. No extra-axial fluid collection is seen. The ventricles and sulci are normal in size and configuration. The density of the brain is normal, and the ellis white matter differentiation appears well-preserved. The visualized osseous s tructures are grossly unremarkable. There is pansinusitis. IMPRESSION: 1. No evidence of acute intracranial pathology. 2. The brain is normal in appearance. .Clyde Garcia MD, MD Date Time Electronically viewed and signed by .Clyde Garcia MD, on 01/02/2017 13:05 .A/
[2017-01-02] MEDS: LABETALOL HCL 20MG INJ IV PRN (14:09)
--- NOTE | 2017-01-02 14:24 | PN ---
DATE: 01/02/2017 HISTORY OF PRESENT ILLNESS: The patient's condition remains critical. Still requiring high dose se datives as well as continuous intravenous paralytic because of severe tachypnea. The patient, [facility], has remained hemodynamically stable, not requiring any pressor support. PHYSICAL EXAMINATION: GENERAL: Middle-aged male, morbidly obese. Orally intubated and sedated. VITAL SIGNS: Temperature is 98.8 degrees Fahrenheit, respiratory rate is 16 per minute, heart rate 80 per minute, blood pressure 130/70, O2 sat 98%. Urine output has fair. Patient is currently on A C of 16, tidal volume 600, PEEP of 5, 60% FIO2. HEENT: Supple neck. JVD difficult to see, because of short neck. Orally intubated. Patient is ed entulous. Pupils are small bilaterally. neck masses, no thyromegaly. No neck bruits. CHEST: Clear to auscultation. HEART: S1, S2 audible. No murmurs, regular rhythm. ABDOMEN: Soft, protuberant. Bowel sounds audible, no organomegaly. EXTREMITIES: No edema. Pulses 1+ bilaterally. NEUROLOGIC: The patient is sedated and paralyzed. LABORATORY DATA: Today, white count is 11.2, hemoglobin 11.2, platelet count of 211. Sodium 144, p otassium 4.7, chloride 107, bicarbonate 29. BUN 14, creatinine 0.7. Chest x-ray from today is pend ing. MEDICATIONS: 1. Vecuronium drip via protocol. 2. Fentanyl 100 mcg per hour, first at 10 mg per hour. The patient is off propofol. 3. Cefepime 1 gram IV q.12h. 4. D5 half normal saline at 125 per hour. 5. Morphine on a p.r.n. basis. 6. Acetaminophen on a p.r.n. basis. 7. Tegretol 400 mg daily. 8. Depakote 500 mg daily. 9. Lovenox 40 mg daily. 10. Neurontin 600 mg b.i.d. 11. Hydralazine on a p.r.n. basis. 12. Protonix 40 mg daily. ASSESSMENT: 1. Patient admitted for multidrug overdose resulting in respiratory failure with severe agitation, tachypnea requiring high dose sedation as well as continuous intravenous diuretics. 2. Possibly bilateral pneumonia. Patient currently on appropriate antibiotic regimen. 3. Underlying severe psychiatric illness. RECOMMENDATIONS: 1. Continue current treatment. Obtain followup chest x-ray as the patient's oxygen requirements fernandez ve increased. Also obtain an ABG. Once ABG is obtained I will review it. The patient also may nee d to have an EEG performed as there was a questionable seizure episode noted. Prognosis guarded and will depend entirely upon adequate mental status recovery. Thirty-five minutes of critical care time was spent evaluating the patient. Dictated By: VU FISCHER/SHANELLE Conf#: [id number] DID#: [id number]
[2017-01-02] MEDS: VECURONIUM BROMIDE IV SCH (14:39)
[2017-01-02] MEDS: DEXTROSE 5% IV SCH (14:39)
--- NOTE | 2017-01-02 16:07 | RADRPT ---
PROCEDURE: XR Chest. CLINICAL INDICATION: Respiratory distress. TECHNIQUE: AP view of the chest was performed. COMPARISON: January 01, 2017 FINDINGS: The endotracheal tube and nasogastric tube remain in good positioning there are improved bilateral l rocio infiltrates. The heart size is stable. Mild vascular congestion remains. No pneumothorax or pleu ral effusion. IMPRESSION: Support lines and tubes in good positioning. Improving bilateral lung infiltrates, with persistent m ild vascular congestion. RPTAT: QQ. .Jody Arzate MD, MD Date Time Electronically viewed and signed by .Jody Arzate MD, MD on 01/02/2017 16:07 .F/
--- NOTE | 2017-01-02 16:20 | RADRPT ---
PROCEDURE: XR Chest. CLINICAL INDICATION: PICC placement TECHNIQUE: PA and lateral views of the chest were obtained. COMPARISON: 01/02/2017 FINDINGS: Right upper extremity PICC placed with tip in the SVC region. ET tube and NG tube remain in place. T he cardiomediastinal silhouette is unchanged. Have slight improvement of bibasilar opacities. Pulmo nary vascular congestion is similar. IMPRESSION: PICC line in satisfactory position. Rest of lines and tubes in place. Bibasilar opacities, slightly improved. Persistent pulmonary vascular congestion. RPTAT: QQ .Musa Lee MD, Date Time Electronically viewed and signed by .Musa Lee MD, on 01/02/2017 16:19 .O/
[2017-01-02] MEDS: carBAMAZepine (XR) 100 MG TABSR PO SCH (20:03)
[2017-01-02] MEDS: DIVALPROEX (ER) 500 MG TAB PO SCH (20:03)
[2017-01-02] MEDS ORDERED: FAMOTIDINE 20 MG INJ IV SCH (21:00)
[2017-01-03] VITALS (99 sets, daily range): BP systolic 107–188; BP diastolic 60–113; PULSE 43–110; RESP 16–25
[2017-01-03] MEDS: D5W-0.45 NACL + KCL 40 MEQ 1,000 ML IV SCH ×2 (00:49→08:14)
[2017-01-03] MEDS: MIDAZOLAM (DRIP) 50 mg/50 mL 50 ML IV SCH ×6 (00:49→23:15)
[2017-01-03] MEDS: VECURONIUM BROMIDE IV SCH (04:07)
[2017-01-03] MEDS: DEXTROSE 5% IV SCH (04:07)
[2017-01-03] MEDS: PROPOFOL 100 ML IV SCH ×5 (04:08→23:15)
[2017-01-03] MEDS: PANTOPRAZOLE 40 MG INJ IV SCH (05:01)
[2017-01-03] MEDS: FENTAnyl (DRIP) 1000 mcg/100mL 100 ML IV SCH ×3 (05:01→19:57)
[2017-01-03 06:38] LABS: BASOPHILS % 0.3 % (0.0-2.0); EOSINOPHILS # 0.1 10^3/ul (0.0-0.5); EOSINOPHILS % 0.5 % (0.0-7.0); HEMATOCRIT 31.6 % (42.0-52.0); HEMOGLOBIN 9.9 g/dl (14.0-18.0); LYMPHOCYTES # 0.8 10^3/ul (0.8-2.9); MEAN CORPUSCULAR HEMOGLOBIN 29.8 pg (29.0-33.0); MEAN CORPUSCULAR HGB CONC 31.3 g/dl (32.0-37.0); MEAN CORPUSCULAR VOLUME 95.2 fl (82.0-101.0); MEAN PLATELET VOLUME 12.6 fl (7.4-10.4); NEUTROPHIL # 9.5 10^3/ul (1.6-7.5); NEUTROPHILS % 82.5 % (39.0-77.0); PLATELET COUNT 214 10^3/UL (140-415); RED BLOOD COUNT 3.32 10^6/ul (4.70-6.10); RED CELL DISTRIBUTION WIDTH 14.6 % (11.5-14.5); WHITE BLOOD COUNT 11.5 10^3/ul (4.8-10.8)
[2017-01-03 07:40] LABS: PHOSPHORUS 2.9 mg/dl (2.5-4.9)
[2017-01-03] MEDS: CEFEPIME 1GM/50 ML (PMX) 50 ML IVPB SCH ×2 (08:14→21:05)
[2017-01-03] MEDS: GABAPENTIN 300 MG CAP PO SCH ×3 (08:14→21:10)
[2017-01-03] MEDS: ENOXAPARIN 40 MG/0.4 ML SYG SC SCH (08:42)
[2017-01-03 08:58] LABS: ALBUMIN 3.7 g/dl (3.3-4.9); ALBUMIN/GLOBULIN RATIO 1.12; BILIRUBIN,INDIRECT 0.2 mg/dl (0-1.1); BILIRUBIN,TOTAL 0.2 mg/dl (0.2-1.3); CREATININE 0.72 mg/dl (0.61-1.24)
[2017-01-03 10:19] LABS: AADO2 Arterial 291.3 mmHg (7.0-24.0); Allen Test ACCEPTAB; Arterial Base Excess 3.5 mmol/L (-3.0-3); Arterial COHb 0.1 % (0.0-3.0); Arterial Fraction of Oxyhgb 91.9 % (93.0-99.0); Arterial HCO3 31.3 mmol/L (22.0-26.0); Arterial MetHb 0.2 % (0.0-1.5); Arterial Total Hemglobin 13.4 g/dl (12.0-18.0); MODE VENT - AC
--- NOTE | 2017-01-03 10:29 | PN ---
Date/Time of Note Date/Time of Note DATE: 01/03/17 TIME: 10:22 Assessment/Plan VTE Prophylaxis VTE Prophylaxis Intervention: LMWH Lines/Catheters IV Catheter Type (from Nrsg): PICC Line Central line still needed: Yes (For IV access) Urinary Cath still in place: Yes Reason Cath still needed: other (indicate) (Intubated and sedated) Assessment/Plan Assessment/Plan 46 yo male with: 1. Severe encephalopathy 2ry to drug abuse likely Bath salts and/or synthetic marijuana. Patient agitated, extremely combative despite Ativan and Haldol multiple doses given in the ER, had to be sedated and intubated because of danger to himself. Intubated, sedated with Versed, Fentanyl and Propofol and paralysed with Vecuronium. Likely encephalopathy secondary to drug use, cannabinoid synthetics and possibly bath salts. He also does have a history of bipolar disorder but he is levels are low so may be noncompliant with his outpatient antipsychotics and medications Repeat CT head wnl, EEG done and reading pending. S/p PICC line 2. Acute respiratory Failure 2ry to severe Encephalopathy from Drug overuse, intubated, sedated and paralysed. Also likely aspirated and with aspiration PNA vs pneumonitis. On cefepime, WBC trending down 3. Bipolar disorder: Likely noncompliant with psychiatric medications. Will resume once able to access p.o. or more awake 4. Right foot Lisfranc fracture: Pain control and ? splint Prophylaxis: Lovenox for DVT prophylaxis, Pepcid for GI prophylaxis Disposition: ICU monitoring, intubated, sedated and paralysed. Subjective 24 Hr Interval Summary Free Text/Dictation Patient remained stable, afebrile, still on multiple sedations and paralytic. Repeat CAT scan yesterday negative for acute injury. EEG done, reading pending. Otherwise hemodynamically stable however still hypertensive requiring medications. Exam/Review of Systems Vital Signs Vitals Vital Signs Date Time Temp Pulse Resp B/P Pulse Ox O2 Delivery O2 Flow Rate FiO2 01/03/17 08:00 66 01/03/17 06:00 16 139/63 96 Mechanical Ventilator 01/03/17 05:37 60 01/03/17 04:00 99.0 Intake and Output 01/02/17 01/02/17 01/03/17 15:00 23:00 07:00 Intake Total 1341.5 ml 1417.232 ml 1266.485 ml Output Total 850 ml 845 ml 540 ml Balance 491.5 ml 572.232 ml 726.485 ml Exam Constitutional: other (Sedated, paralyzed, intubated) Respiratory: clear to auscultation, other (On mechanical ventilation) Cardiovascular: nl pulses, regular rate and rhythm Gastrointestinal: non-tender, soft Musculoskeletal: nl extremities to inspection Extremities: normal pulses, other Neurological: other (Intubated, sedated, paralyzed) Results Result Diagram: 01/03/17 0500 01/03/17 0806 Results 24 hrs Laboratory Tests Test 01/03/17 05:00 01/03/17 08:06 01/03/17 09:22 White Blood Count 11.5 H Red Blood Count 3.32 L Hemoglobin 9.9 L Hematocrit 31.6 L Mean Corpuscular Volume 95.2 Mean Corpuscular Hemoglobin 29.8 Mean Corpuscular Hemoglobin Concent 31.3 L Red Cell Distribution Width 14.6 H Platelet Count 214 Mean Platelet Volume 12.6 H Neutrophils % 82.5 H Lymphocytes % 7.0 L Monocytes % 9.0 Eosinophils % 0.5 Basophils % 0.3 Nucleated Red Blood Cells % 0.0 Neutrophils # 9.5 H Lymphocytes # 0.8 Monocytes # 1.0 H Eosinophils # 0.1 Basophils # 0.0 Nucleated Red Blood Cells # 0.0 Phosphorus Level 2.9 Magnesium Level 2.0 Sodium Level 144 Potassium Level 5.0 Chloride Level 106 Carbon Dioxide Level 30 Anion Gap 13 Blood Urea Nitrogen 17 Creatinine 0.72 Glucose Level 188 Calcium Level 8.0 L Total Bilirubin 0.2 Direct Bilirubin 0.00 Indirect Bilirubin 0.2 Aspartate Amino Transf (AST/SGOT) 22 Alanine Aminotransferase (ALT/SGPT) 38 Alkaline Phosphatase 117 Total Protein 7.0 Albumin 3.7 Globulin 3.30 H Albumin/Globulin Ratio 1.12 Blood Gas Specimen Source Blood arterial Arterial Blood Date Drawn 01/03/2017 10:05:45 AM Arterial Blood pH (Temp corrected) 7.318 L Arterial Blood pCO2 (Temp correct) 62.5 H Arterial Blood pO2 (Temp corrected) 67.8 L Arterial Blood HCO3 31.3 H Arterial Blood Base Excess 3.5 H Arterial Blood Oxygen Saturation 92.2 L [place] Test ACCEPTAB Arterial Blood Gas Puncture Site Right Radial Arterial Blood Carboxyhemoglobin 0.1 Arterial Blood Methemoglobin 0.2 Blood Gas A-a O2 Differential 291.3 H Oxyhemoglobin Percent 91.9 L Total Hemoglobin 13.4 Blood Gas Temperature 37.0 Blood Gas Respiration Rate 16.0 Blood Gas Actual Respiration Rate 16 Blood Gas Modality VENT - AC FiO2 60.0 Blood Gas Tidal Volume 600.0 Blood Gas Low PEEP Setting 5.0 Blood Gas Notified Whom CW Blood Gas Notified Time 01/03/2017 10:18:58 AM Medications Medications Current Medications Carbamazepine (Tegretol Xr) 400 mg HS PO Last administered on 01/02/17 20:03 ; Admin Dose 400 MG; Start 12/31/16 at 21:00 Divalproex Sodium (Depakote Er) 500 mg HS PO Last administered on 01/02/17 20 :03; Admin Dose 500 MG; Start 12/31/16 at 21:00 Gabapentin (Neurontin) 600 mg TID PO Last administered on 01/03/17 08:14; Admin Dose 600 MG; Start 12/31/16 at 09:00 Acetaminophen (Tylenol Tab) 650 mg Q4H PRN PO pain/fever; Start 12/31/16 at 01 :00 Hydralazine HCl (Apresoline) 25 mg Q6H PRN PO sbp>160; Start 12/31/16 at 01:00 Enalaprilat (Vasotec Iv) 1.25 mg Q6H PRN IV sbp>160; Start 12/31/16 at 01:00 Ondansetron HCl 4 mg 4 mg Q4H PRN IV nausea; Start 12/31/16 at 01:00 Potassium Chloride/Dextrose/ Sod Cl (D5-1/2ns + KCl 40 Meq) 1,000 ml @ 125 mls/ hr Q8H IV Last administered on 01/03/17 08:14; Admin Dose 125 MLS/HR; Start 12/31/16 at 01:00 Hydralazine HCl 10 mg 10 mg Q4H PRN IV ELEVATED SYSTOLIC BP Last administered on 01/02/17 13:12; Admin Dose 10 MG; Start 12/31/16 at 05:30 Propofol 100 ml @ 3.205 mls/ hr TITRATE IV Last administered on 01/03/17 04: 08; Admin Dose 6.409 MLS/HR; Start 12/31/16 at 05:30 Fentanyl 100 ml @ 2.5 mls/hr TITRATE IV Last administered on 01/03/17 05:01 ; Admin Dose 10 MLS/HR; Start 12/31/16 at 16:30 Midazolam HCl (Versed) 50 ml @ 1 mls/hr TITRATE IV Last administered on 08:38; Admin Dose 10 MLS/HR; Start 12/31/16 at 16:30 Enoxaparin Sodium 40 mg 40 mg DAILY SC Last administered on 01/03/17 08:42; Admin Dose 40 MG; Start 01/01/17 at 09:00 Cefepime HCl (Maxipime 1gm/50 ml (Pmx)) 50 ml @ 100 mls/hr Q12 IVPB Last administered on 01/03/17 08:14; Admin Dose 100 MLS/HR; Start 12/31/16 at 20: 00 Pantoprazole 40 mg 40 mg DAILY@06 IV Last administered on 01/03/17 05:01; Admin Dose 40 MG; Start 01/01/17 at 06:00 Morphine Sulfate/ Sodium Chloride 100 ml @ 1 mls/hr TITRATE IV Last administered on 12/31/16 22:07; Admin Dose 1 MLS/HR; Start 12/31/16 at 21:00 Vecuronium [place]/Dextrose (Vecuronium [place]/D5W) 100 ml @ 6.03 mls/hr TITRATE IV Last administered on 01/03/17 04:07; Admin Dose 6.03 MLS/HR; Start 01/01/17 at 06:00 Labetalol HCl (Labetalol) 10 mg Q4H PRN IV SBP GREATER THAN 160 Last administered on 01/02/17 14:09; Admin Dose 10 MG; Start 01/01/17 at 12:00 IV Flush (NS 10 ml) 10 ml PRN PRN IV IV PROTOCOL; Start 01/02/17 at 17:00 Procedures Procedures PROCEDURE: CT Brain without contrast. CLINICAL INDICATION: Change in mental status TECHNIQUE: A CT of the brain was performed on a multidetector CT scanner utilizing axial imaging from the skull base through the vertex without IV contrast. Multiplanar reformatted images were made. Images were reviewed on a PACS workstation. The CTDIvol is 42 mGy and the DLP is 720 mGycm. Individualized dosed optimization technique was used for the performance of this exam. This included 1. Automated exposure control. 2. Adjustment of the mA and / or kV according to the patient's size. 3. The use of iterative reconstruction technique. COMPARISON: CT head CT December 30, FINDINGS: There is no intracranial hemorrhage, mass effect, or midline shift. No extra- axial fluid collection is seen. The ventricles and sulci are normal in size and configuration. The density of the brain is normal, and the ellis white matter differentiation appears well-preserved. The visualized osseous structures are grossly unremarkable. There is pansinusitis. IMPRESSION: 1. No evidence of acute intracranial pathology. 2. The brain is normal in appearance. .Clyde Garcia MD, MD Date Time Electronically viewed and signed by .Clyde Garcia MD, MD on 01/02/2017 13: 05 TRENT NEWMAN Jan 03, 2017 10:29
[2017-01-03] MEDS: SOD CHLORIDE 0.9% 1,000 ML IV SCH ×2 (10:40→18:06)
[2017-01-03] MEDS ORDERED: VANCOMYCIN IV PER PHARMACY XX SCH (11:00)
--- NOTE | 2017-01-03 11:00 | CONS ---
Date/Time of Note Date/Time of Note DATE: 01/03/17 TIME: 10:57 Assessment/Plan Assessment/Plan Chief Complaint/Hosp Course dictated # [id number] Problems: Additional Assessment/Plan Ventilator setting; AC of 16, tidal volume 600, PEEP of 5, 60% FiO2. Patient is on propofol at 20 mics per kilogram per minute. Vecuronium drip at .05 mg/kg/h. CT scan of the brain done yesterday is unremarkable. Assessment and recommendations; 1. Patient admitted with multidrug overdose leading to respiratory failure. 2. Bilateral aspiration pneumonia. 3. Underlying severe psychiatric illness. 4. Hypercapnia and hypoxemia. Increase assist-control rate to 20. Add vancomycin. Obtain follow-up chest x- ray. Weaning from ventilator with depend upon adequate mental status recovery. 35 minutes of critical care time was spent evaluating the patient. Consultation Date/Type/Reason Admit Date/Time Dec 31, 2016 at 00:30 Initial Consult Date 12/31/16 Type of Consultation: pulm/cc 24 HR Interval Summary Free Text/Dictation Patient's condition remains critical. Still requiring high-dose sedatives as well as continuous intravenous paralytics for severe agitation and tachypnea. Patient however has remained hemodynamically stable. General exam; middle-aged male, morbidly obese, orally intubated, sedated and paralyzed. Exam/Review of Systems Vital Signs Vitals Vital Signs Date Time Temp Pulse Resp B/P Pulse Ox O2 Delivery O2 Flow Rate FiO2 01/03/17 08:00 66 01/03/17 06:00 16 139/63 96 Mechanical Ventilator 01/03/17 05:37 60 01/03/17 04:00 99.0 Intake and Output 01/02/17 01/02/17 01/03/17 15:00 23:00 07:00 Intake Total 1341.5 ml 1417.232 ml 1266.485 ml Output Total 850 ml 845 ml 540 ml Balance 491.5 ml 572.232 ml 726.485 ml Exam HEENT exam; supple neck, JVD difficult to see because of short neck. Patient is edentulous. Orally intubated. Pupils are small bilaterally. Chest exam; diminished breath sounds bilaterally. S1-S2 audible, no murmurs. Regular rhythm. Abdomen exam; protuberant. Bowel sounds audible. No organomegaly. Extremity exam; no peripheral edema. Pulses 1+ bilaterally. TRANSIT COACH OPERATOR exam; patient is sedated and paralyzed. Results Result Diagram: 01/03/17 0500 01/03/17 0806 Results 24 hrs Laboratory Tests Test 01/03/17 05:00 01/03/17 08:06 01/03/17 09:22 White Blood Count 11.5 H Red Blood Count 3.32 L Hemoglobin 9.9 L Hematocrit 31.6 L Mean Corpuscular Volume 95.2 Mean Corpuscular Hemoglobin 29.8 Mean Corpuscular Hemoglobin Concent 31.3 L Red Cell Distribution Width 14.6 H Platelet Count 214 Mean Platelet Volume 12.6 H Neutrophils % 82.5 H Lymphocytes % 7.0 L Monocytes % 9.0 Eosinophils % 0.5 Basophils % 0.3 Nucleated Red Blood Cells % 0.0 Neutrophils # 9.5 H Lymphocytes # 0.8 Monocytes # 1.0 H Eosinophils # 0.1 Basophils # 0.0 Nucleated Red Blood Cells # 0.0 Phosphorus Level 2.9 Magnesium Level 2.0 Sodium Level 144 Potassium Level 5.0 Chloride Level 106 Carbon Dioxide Level 30 Anion Gap 13 Blood Urea Nitrogen 17 Creatinine 0.72 Glucose Level 188 Calcium Level 8.0 L Total Bilirubin 0.2 Direct Bilirubin 0.00 Indirect Bilirubin 0.2 Aspartate Amino Transf (AST/SGOT) 22 Alanine Aminotransferase (ALT/SGPT) 38 Alkaline Phosphatase 117 Total Protein 7.0 Albumin 3.7 Globulin 3.30 H Albumin/Globulin Ratio 1.12 Blood Gas Specimen Source Blood arterial Arterial Blood Date Drawn 01/03/2017 10:05:45 AM Arterial Blood pH (Temp corrected) 7.318 L Arterial Blood pCO2 (Temp correct) 62.5 H Arterial Blood pO2 (Temp corrected) 67.8 L Arterial Blood HCO3 31.3 H Arterial Blood Base Excess 3.5 H Arterial Blood Oxygen Saturation 92.2 L [place] Test ACCEPTAB Arterial Blood Gas Puncture Site Right Radial Arterial Blood Carboxyhemoglobin 0.1 Arterial Blood Methemoglobin 0.2 Blood Gas A-a O2 Differential 291.3 H Oxyhemoglobin Percent 91.9 L Total Hemoglobin 13.4 Blood Gas Temperature 37.0 Blood Gas Respiration Rate 16.0 Blood Gas Actual Respiration Rate 16 Blood Gas Modality VENT - AC FiO2 60.0 Blood Gas Tidal Volume 600.0 Blood Gas Low PEEP Setting 5.0 Blood Gas Notified Whom CW Blood Gas Notified Time 01/03/2017 10:18:58 AM Medications Medications Current Medications Carbamazepine (Tegretol Xr) 400 mg HS PO Last administered on 01/02/17 20:03 ; Admin Dose 400 MG; Start 12/31/16 at 21:00 Divalproex Sodium (Depakote Er) 500 mg HS PO Last administered on 01/02/17 20 :03; Admin Dose 500 MG; Start 12/31/16 at 21:00 Gabapentin (Neurontin) 600 mg TID PO Last administered on 01/03/17 08:14; Admin Dose 600 MG; Start 12/31/16 at 09:00 Acetaminophen (Tylenol Tab) 650 mg Q4H PRN PO pain/fever; Start 12/31/16 at 01 :00 Hydralazine HCl (Apresoline) 25 mg Q6H PRN PO sbp>160; Start 12/31/16 at 01:00 Enalaprilat (Vasotec Iv) 1.25 mg Q6H PRN IV sbp>160; Start 12/31/16 at 01:00 Ondansetron HCl (Zofran Inj) 4 mg Q4H PRN IV nausea; Start 12/31/16 at 01:00 Hydralazine HCl 10 mg 10 mg Q4H PRN IV ELEVATED SYSTOLIC BP Last administered on 01/02/17 13:12; Admin Dose 10 MG; Start 12/31/16 at 05:30 Propofol 100 ml @ 3.205 mls/ hr TITRATE IV Last administered on 01/03/17 04: 08; Admin Dose 6.409 MLS/HR; Start 12/31/16 at 05:30 Fentanyl 100 ml @ 2.5 mls/hr TITRATE IV Last administered on 01/03/17 10:40 ; Admin Dose 10 MLS/HR; Start 12/31/16 at 16:30 Midazolam HCl (Versed) 50 ml @ 1 mls/hr TITRATE IV Last administered on 08:38; Admin Dose 10 MLS/HR; Start 12/31/16 at 16:30 Enoxaparin Sodium 40 mg 40 mg DAILY SC Last administered on 01/03/17 08:42; Admin Dose 40 MG; Start 01/01/17 at 09:00 Cefepime HCl (Maxipime 1gm/50 ml (Pmx)) 50 ml @ 100 mls/hr Q12 IVPB Last administered on 01/03/17 08:14; Admin Dose 100 MLS/HR; Start 12/31/16 at 20: 00 Pantoprazole 40 mg 40 mg DAILY@06 IV Last administered on 01/03/17 05:01; Admin Dose 40 MG; Start 01/01/17 at 06:00 Morphine Sulfate/ Sodium Chloride 100 ml @ 1 mls/hr TITRATE IV Last administered on 12/31/16 22:07; Admin Dose 1 MLS/HR; Start 12/31/16 at 21:00 Vecuronium [place]/Dextrose (Vecuronium [place]/D5W) 100 ml @ 6.03 mls/hr TITRATE IV Last administered on 01/03/17 04:07; Admin Dose 6.03 MLS/HR; Start 01/01/17 at 06:00 Labetalol HCl (Labetalol) 10 mg Q4H PRN IV SBP GREATER THAN 160 Last administered on 01/02/17 14:09; Admin Dose 10 MG; Start 01/01/17 at 12:00 IV Flush 10 ml 10 ml PRN PRN IV IV PROTOCOL; Start 01/02/17 at 17:00 Sodium Chloride (NS) 1,000 ml @ 125 mls/hr Q8H IV Last administered on 10:40; Admin Dose 125 MLS/HR; Start 01/03/17 at 10:30 VU FLORES Jan 03, 2017 11:00
--- NOTE | 2017-01-03 12:21 | RADRPT ---
PROCEDURE: XR Chest. CLINICAL INDICATION: Pneumonia TECHNIQUE: Single frontal view of the chest was obtained COMPARISON: 01/02/17 FINDINGS: Stable endotracheal tube, right PICC and nasogastric tube. Decreased aeration of the left lung base and worsening small left pleural effusion. Stable patchy opacities in the bilateral lower lung zones, right greater than left. Stable enlarged cardiomediastinal silhouette. Regional skeleton is intact. IMPRESSION: Stable bibasilar opacities with decreased aeration of the left lung base and worsening small left pl eural effusion. Otherwise, no convincing interval change compared to chest radiograph from prior day . RPTAT: EE Physician Jean-Paul Date Time Electronically viewed and signed by Physician Jean-Paul on 01/03/2017 12:20 /
[2017-01-03] MEDS ORDERED: VANCOMYCIN 2 GM in SOD CHLORIDE 0.9% 500 ML IVPB SCH (13:00)
--- NOTE | 2017-01-03 14:44 | RADRPT ---
PROCEDURE: US guidance for PICC line CLINICAL INDICATION: PICC line placement TECHNIQUE: Multiple real-time images were acquired of the patient's arm utilizing a high resolutio n transducer. This was performed by the PICC line nurse for venous access. COMPARISON: None FINDINGS: Ultrasound guidance for PICC line placement. IMPRESSION: Ultrasound guidance for PICC line placement. RPTAT: AA .Marco A Painter MD, MD Date Time Electronically viewed and signed by .Marco A Painter MD, on 01/03/2017 14:44 .S/
[2017-01-03] MEDS: carBAMAZepine (XR) 100 MG TABSR PO SCH (21:06)
[2017-01-03] MEDS: DIVALPROEX (ER) 500 MG TAB PO SCH (21:06)
[2017-01-03] MEDS ORDERED: VANCOMYCIN 1.75 GM in SOD CHLORIDE 0.9% 500 ML IVPB SCH (22:00)
[2017-01-03] MEDS: VANCOMYCIN 1.75 GM in SOD CHLORIDE 0.9% 500 ML IVPB SCH (23:18)
[2017-01-04] VITALS (76 sets, daily range): BP systolic 97–164; BP diastolic 59–104; PULSE 67–96; RESP 12–25
[2017-01-04] MEDS: PROPOFOL 100 ML IV SCH ×8 (01:38→22:11)
[2017-01-04] MEDS: SOD CHLORIDE 0.9% 1,000 ML IV SCH ×3 (02:30→17:06)
[2017-01-04] MEDS: MIDAZOLAM (DRIP) 50 mg/50 mL 50 ML IV SCH ×3 (04:36→15:30)
[2017-01-04] MEDS: FENTAnyl (DRIP) 1000 mcg/100mL 100 ML IV SCH ×2 (05:23→15:31)
[2017-01-04 05:42] LABS: BASOPHIL # 0.1 10^3/ul (0.0-0.1); BASOPHILS % 0.7 % (0.0-2.0); EOSINOPHILS # 0.5 10^3/ul (0.0-0.5); EOSINOPHILS % 5.3 % (0.0-7.0); HEMATOCRIT 29.2 % (42.0-52.0); HEMOGLOBIN 9.4 g/dl (14.0-18.0); LYMPHOCYTES # 1.1 10^3/ul (0.8-2.9); LYMPHOCYTES % 12.2 % (15.0-51.0); MEAN CORPUSCULAR HEMOGLOBIN 29.9 pg (29.0-33.0); MEAN CORPUSCULAR HGB CONC 32.2 g/dl (32.0-37.0); MEAN PLATELET VOLUME 11.6 fl (7.4-10.4); MONOCYTES % 11.4 % (0.0-11.0); NEUTROPHIL # 6.3 10^3/ul (1.6-7.5); NEUTROPHILS % 69.8 % (39.0-77.0); PLATELET COUNT 213 10^3/UL (140-415); RED BLOOD COUNT 3.14 10^6/ul (4.70-6.10); RED CELL DISTRIBUTION WIDTH 14.5 % (11.5-14.5)
[2017-01-04] MEDS: PANTOPRAZOLE 40 MG INJ IV SCH (06:05)
[2017-01-04 06:10] LABS: MAGNESIUM 2.3 mg/dl (1.7-2.5)
[2017-01-04 06:12] LABS: CALCIUM 8.1 mg/dl (8.4-10.2); CREATININE 0.78 mg/dl (0.61-1.24); POTASSIUM 4.1 mmol/L (3.5-5.1)
[2017-01-04] MEDS: CEFEPIME 1GM/50 ML (PMX) 50 ML IVPB SCH ×2 (08:23→20:34)
[2017-01-04] MEDS: GABAPENTIN 300 MG CAP PO SCH ×3 (08:23→21:29)
[2017-01-04] MEDS: ENOXAPARIN 40 MG/0.4 ML SYG SC SCH (08:30)
--- NOTE | 2017-01-04 09:39 | PN ---
Date/Time of Note Date/Time of Note DATE: 01/04/17 TIME: 09:35 Assessment/Plan VTE Prophylaxis VTE Prophylaxis Intervention: LMWH Lines/Catheters IV Catheter Type (from Nrs): PICC Line Central line still needed: Yes (For IV access) Urinary Cath still in place: Yes Reason Cath still needed: other (indicate) (Intubated and sedated) Assessment/Plan Assessment/Plan 46 yo male with: 1. Severe encephalopathy 2ry to drug abuse likely Bath salts and/or synthetic marijuana. Patient agitated, extremely combative despite Ativan and Haldol multiple doses given in the ER, had to be sedated and intubated because of danger to himself. Intubated, sedated with Versed, Fentanyl and Propofol and off paralytics as of yesterday Likely encephalopathy secondary to drug use, cannabinoid synthetics and possibly bath salts. He also does have a history of bipolar disorder but he is levels are low so may be noncompliant with his outpatient antipsychotics and medications Repeat CT head wnl, EEG done and reading pending. S/p PICC line 2. Acute respiratory Failure 2ry to severe Encephalopathy from Drug overuse, intubated, sedated and paralysed. Also likely aspirated and with aspiration PNA vs pneumonitis. On cefepime, WBC down to normal 3. Bipolar disorder: Likely noncompliant with psychiatric medications. Will resume once able to access p.o. or more awake 4. Right foot Lisfranc fracture: Pain control and ? splint Prophylaxis: Lovenox for DVT prophylaxis, Pepcid for GI prophylaxis Disposition: ICU monitoring, intubated, sedated, weaning off sedation and off paralytics. Subjective 24 Hr Interval Summary Free Text/Dictation Patient still intubated, sedated, off paralytics. Working on titrating his sedating agent down, still on propofol, fentanyl, Versed Otherwise stable on the ventilator. Exam/Review of Systems Vital Signs Vitals Vital Signs Date Time Temp Pulse Resp B/P Pulse Ox O2 Delivery O2 Flow Rate FiO2 01/04/17 08:00 73 01/04/17 07:30 20 108/59 98 Mechanical Ventilator 01/04/17 07:15 98.7 01/04/17 05:35 60 Intake and Output 01/03/17 01/03/17 01/04/17 15:00 23:00 07:00 Intake Total 1627.0458 ml 1545.138 ml 1841.046 ml Output Total 930 ml 545 ml 405 ml Balance 697.0458 ml 1000.138 ml 1436.046 ml Exam Constitutional: other (Intubated and sedated, off paralytics) Respiratory: diminished breath sounds (Bases bilaterally L>R ) Cardiovascular: nl pulses, regular rate and rhythm Gastrointestinal: non-tender, soft Musculoskeletal: nl extremities to inspection, other (No edema, clubbing or cyanosis) Extremities: normal pulses Neurological: other (Intubated and sedated) Results Result Diagram: 01/04/17 0500 01/04/17 0500 Results 24 hrs Laboratory Tests Test 01/04/17 05:00 01/04/17 07:21 White Blood Count 9.0 # Red Blood Count 3.14 L Hemoglobin 9.4 L Hematocrit 29.2 L Mean Corpuscular Volume 93.0 Mean Corpuscular Hemoglobin 29.9 Mean Corpuscular Hemoglobin Concent 32.2 Red Cell Distribution Width 14.5 Platelet Count 213 Mean Platelet Volume 11.6 H Neutrophils % 69.8 Lymphocytes % 12.2 L Monocytes % 11.4 H Eosinophils % 5.3 Basophils % 0.7 Nucleated Red Blood Cells % 0.0 Neutrophils # 6.3 Lymphocytes # 1.1 Monocytes # 1.0 H Eosinophils # 0.5 Basophils # 0.1 Nucleated Red Blood Cells # 0.0 Sodium Level 145 H Potassium Level 4.1 Chloride Level 109 Carbon Dioxide Level 31 Anion Gap 9 Blood Urea Nitrogen 23 H Creatinine 0.78 Glucose Level 120 # Calcium Level 8.1 L Phosphorus Level 3.0 Magnesium Level 2.3 Lab Scanned Report REFERENCE LAB Imaging Free Text/Dictation PROCEDURE: XR Chest. CLINICAL INDICATION: Pneumonia TECHNIQUE: Single frontal view of the chest was obtained COMPARISON: 01/02/17 FINDINGS: Stable endotracheal tube, right PICC and nasogastric tube. Decreased aeration of the left lung base and worsening small left pleural effusion. Stable patchy opacities in the bilateral lower lung zones, right greater than left. Stable enlarged cardiomediastinal silhouette. Regional skeleton is intact. IMPRESSION: Stable bibasilar opacities with decreased aeration of the left lung base and worsening small left pleural effusion. Otherwise, no convincing interval change compared to chest radiograph from prior day. RPTAT: EE Medications Medications Current Medications Carbamazepine (Tegretol Xr) 400 mg HS PO Last administered on 01/03/17 21:06 ; Admin Dose 400 MG; Start 12/31/16 at 21:00 Divalproex Sodium (Depakote Er) 500 mg HS PO Last administered on 01/03/17 21 :06; Admin Dose 500 MG; Start 12/31/16 at 21:00 Gabapentin (Neurontin) 600 mg TID PO Last administered on 01/04/17 08:23; Admin Dose 600 MG; Start 12/31/16 at 09:00 Acetaminophen (Tylenol Tab) 650 mg Q4H PRN PO pain/fever; Start 12/31/16 at 01 :00 Hydralazine HCl (Apresoline) 25 mg Q6H PRN PO sbp>160; Start 12/31/16 at 01:00 Enalaprilat (Vasotec Iv) 1.25 mg Q6H PRN IV sbp>160; Start 12/31/16 at 01:00 Ondansetron HCl (Zofran Inj) 4 mg Q4H PRN IV nausea; Start 12/31/16 at 01:00 Hydralazine HCl 10 mg 10 mg Q4H PRN IV ELEVATED SYSTOLIC BP Last administered on 01/02/17 13:12; Admin Dose 10 MG; Start 12/31/16 at 05:30 Propofol 100 ml @ 3.205 mls/ hr TITRATE IV Last administered on 01/04/17 06: 57; Admin Dose 32.046 MLS/HR; Start 12/31/16 at 05:30 Fentanyl 100 ml @ 2.5 mls/hr TITRATE IV Last administered on 01/04/17 05:23 ; Admin Dose 10 MLS/HR; Start 12/31/16 at 16:30 Midazolam HCl (Versed) 50 ml @ 1 mls/hr TITRATE IV Last administered on 04:36; Admin Dose 10 MLS/HR; Start 12/31/16 at 16:30 Enoxaparin Sodium 40 mg 40 mg DAILY SC Last administered on 01/04/17 08:30; Admin Dose 40 MG; Start 01/01/17 at 09:00 Cefepime HCl (Maxipime 1gm/50 ml (Pmx)) 50 ml @ 100 mls/hr Q12 IVPB Last administered on 01/04/17 08:23; Admin Dose 100 MLS/HR; Start 12/31/16 at 20: 00 Pantoprazole 40 mg 40 mg DAILY@06 IV Last administered on 01/04/17 06:05; Admin Dose 40 MG; Start 01/01/17 at 06:00 Vecuronium [place]/Dextrose (Vecuronium [place]/D5W) 100 ml @ 6.03 mls/hr TITRATE IV Last administered on 01/03/17 04:07; Admin Dose 6.03 MLS/HR; Start 01/01/17 at 06:00 Labetalol HCl (Labetalol) 10 mg Q4H PRN IV SBP GREATER THAN 160 Last administered on 01/02/17 14:09; Admin Dose 10 MG; Start 01/01/17 at 12:00 IV Flush 10 ml 10 ml PRN PRN IV IV PROTOCOL; Start 01/02/17 at 17:00 Sodium Chloride 1,000 ml @ 125 mls/hr Q8H IV Last administered on 01/04/17 02:30; Admin Dose 125 MLS/HR; Start 01/03/17 at 10:30 Vancomycin HCl/ Sodium Chloride (Vancocin/NS) 500 ml @ 125 mls/hr Q12H IVPB Last administered on 01/03/17 23:18; Admin Dose 125 MLS/HR; Start 01/03/17 at 23:00 Lorazepam (Ativan) 2 mg Q2H PRN IV PRN Agitation.; Start 01/04/17 at 09:00 TRENT NEWMAN Jan 04, 2017 09:39
--- NOTE | 2017-01-04 09:57 | CONS ---
Date/Time of Note Date/Time of Note DATE: 01/04/17 TIME: 09:54 Consult Date/Type/Reason Admit Date/Time Dec 31, 2016 at 00:30 Initial Consult Date 12/31/16 Type of Consultation: pulm/cc Subjective Continues multiple medications including propofol Versed and fentanyl. Currently remains hemodynamically stable. Continues mechanical ventilation. Objective Vital Signs Date Time Temp Pulse Resp B/P Pulse Ox O2 Delivery O2 Flow Rate FiO2 01/04/17 08:00 73 01/04/17 07:30 20 108/59 98 Mechanical Ventilator 01/04/17 07:15 98.7 01/04/17 05:35 60 Intake and Output 01/03/17 01/03/17 01/04/17 15:00 23:00 07:00 Intake Total 1627.0458 ml 1545.138 ml 1841.046 ml Output Total 930 ml 545 ml 405 ml Balance 697.0458 ml 1000.138 ml 1436.046 ml Exam PHYSICAL EXAMINATION GENERAL: Elderly gentleman, intubated on mechanical ventilation, opens eyes and appears somewhat agitated. Orally intubated. VITAL SIGNS: see below. HEENT: Pupils equal, round, and reactive to light. CARDIAC: S1, S2, 1/6 systolic ejection murmur CHEST: Diminished air entry bilaterally. ABDOMEN: Mildly distended. Bowel sounds present no guarding or rebound EXTREMITIES: No cyanosis, clubbing edema +1 NEUROLOGIC: Generalized weakness Results/Medications Result Diagram: 01/04/17 0500 01/04/17 0500 Results 24 hrs Laboratory Tests Test 01/04/17 05:00 01/04/17 07:21 White Blood Count 9.0 # Red Blood Count 3.14 L Hemoglobin 9.4 L Hematocrit 29.2 L Mean Corpuscular Volume 93.0 Mean Corpuscular Hemoglobin 29.9 Mean Corpuscular Hemoglobin Concent 32.2 Red Cell Distribution Width 14.5 Platelet Count 213 Mean Platelet Volume 11.6 H Neutrophils % 69.8 Lymphocytes % 12.2 L Monocytes % 11.4 H Eosinophils % 5.3 Basophils % 0.7 Nucleated Red Blood Cells % 0.0 Neutrophils # 6.3 Lymphocytes # 1.1 Monocytes # 1.0 H Eosinophils # 0.5 Basophils # 0.1 Nucleated Red Blood Cells # 0.0 Sodium Level 145 H Potassium Level 4.1 Chloride Level 109 Carbon Dioxide Level 31 Anion Gap 9 Blood Urea Nitrogen 23 H Creatinine 0.78 Glucose Level 120 # Calcium Level 8.1 L Phosphorus Level 3.0 Magnesium Level 2.3 Lab Scanned Report REFERENCE LAB Medications Current Medications Carbamazepine (Tegretol Xr) 400 mg HS PO Last administered on 01/03/17 21:06 ; Admin Dose 400 MG; Start 12/31/16 at 21:00 Divalproex Sodium (Depakote Er) 500 mg HS PO Last administered on 01/03/17 21 :06; Admin Dose 500 MG; Start 12/31/16 at 21:00 Gabapentin (Neurontin) 600 mg TID PO Last administered on 01/04/17 08:23; Admin Dose 600 MG; Start 12/31/16 at 09:00 Acetaminophen (Tylenol Tab) 650 mg Q4H PRN PO pain/fever; Start 12/31/16 at 01 :00 Hydralazine HCl (Apresoline) 25 mg Q6H PRN PO sbp>160; Start 12/31/16 at 01:00 Enalaprilat (Vasotec Iv) 1.25 mg Q6H PRN IV sbp>160; Start 12/31/16 at 01:00 Ondansetron HCl (Zofran Inj) 4 mg Q4H PRN IV nausea; Start 12/31/16 at 01:00 Hydralazine HCl 10 mg 10 mg Q4H PRN IV ELEVATED SYSTOLIC BP Last administered on 01/02/17 13:12; Admin Dose 10 MG; Start 12/31/16 at 05:30 Propofol 100 ml @ 3.205 mls/ hr TITRATE IV Last administered on 01/04/17 09: 45; Admin Dose 28.841 MLS/HR; Start 12/31/16 at 05:30 Fentanyl 100 ml @ 2.5 mls/hr TITRATE IV Last administered on 01/04/17 05:23 ; Admin Dose 10 MLS/HR; Start 12/31/16 at 16:30 Midazolam HCl (Versed) 50 ml @ 1 mls/hr TITRATE IV Last administered on 04:36; Admin Dose 10 MLS/HR; Start 12/31/16 at 16:30 Enoxaparin Sodium 40 mg 40 mg DAILY SC Last administered on 10/16/17at 08:30; Admin Dose 40 MG; Start 01/01/17 at 09:00 Cefepime HCl (Maxipime 1gm/50 ml (Pmx)) 50 ml @ 100 mls/hr Q12 IVPB Last administered on 01/04/17 08:23; Admin Dose 100 MLS/HR; Start 12/31/16 at 20: 00 Pantoprazole 40 mg 40 mg DAILY@06 IV Last administered on 01/04/17 06:05; Admin Dose 40 MG; Start 01/01/17 at 06:00 Vecuronium [place]/Dextrose (Vecuronium [place]/D5W) 100 ml @ 6.03 mls/hr TITRATE IV Last administered on 01/03/17 04:07; Admin Dose 6.03 MLS/HR; Start 01/01/17 at 06:00 Labetalol HCl (Labetalol) 10 mg Q4H PRN IV SBP GREATER THAN 160 Last administered on 01/02/17 14:09; Admin Dose 10 MG; Start 01/01/17 at 12:00 IV Flush 10 ml 10 ml PRN PRN IV IV PROTOCOL; Start 01/02/17 at 17:00 Sodium Chloride 1,000 ml @ 125 mls/hr Q8H IV Last administered on 01/04/17 02:30; Admin Dose 125 MLS/HR; Start 01/03/17 at 10:30 Vancomycin HCl/ Sodium Chloride (Vancocin/NS) 500 ml @ 125 mls/hr Q12H IVPB Last administered on 01/03/17 23:18; Admin Dose 125 MLS/HR; Start 01/03/17 at 23:00 Lorazepam (Ativan) 2 mg Q2H PRN IV PRN Agitation.; Start 01/04/17 at 09:00 Assessment/Plan Chief Complaint/Hosp Course Assessment 1. Acute hypoxic respiratory failure 2. Possible aspiration pneumonia 3. History of drug overdose 4. History of psychiatric disease 5. Possible sleep apnea Plan 1. Decrease sedation as tolerated 2. CPAP trial if possible 3. Continue tube feeding. 4. DVT and GI prophylaxis 5. Psych eval postextubation. Disposition continue ICU care Problems: BRIANNA SAAVEDRA MD, [facility] Jan 04, 2017 09:57
[2017-01-04] MEDS: VANCOMYCIN 1.75 GM in SOD CHLORIDE 0.9% 500 ML IVPB SCH ×2 (10:27→23:00)
[2017-01-04] MEDS: DEXMEDETOMIDINE HCL 200 MCG in SOD CHLORIDE 0.9% 48 ML IV SCH ×4 (14:28→23:06)
[2017-01-04] MEDS: LORAZEPAM 2 MG INJ IV PRN ×2 (20:04→22:11)
[2017-01-04] MEDS: DIVALPROEX (ER) 500 MG TAB PO SCH (21:29)
[2017-01-04] MEDS: carBAMAZepine (XR) 100 MG TABSR PO SCH (21:40)
[2017-01-04] MEDS ORDERED: VANCOMYCIN 2 GM in SOD CHLORIDE 0.9% 500 ML IVPB SCH (22:30)
[2017-01-05] VITALS (36 sets, daily range): BP systolic 115–139; BP diastolic 63–80; PULSE 61–80; RESP 10–25
[2017-01-05] MEDS: PROPOFOL 100 ML IV SCH ×5 (00:46→21:47)
[2017-01-05] MEDS: MIDAZOLAM (DRIP) 50 mg/50 mL 50 ML IV SCH ×2 (01:04→11:20)
[2017-01-05] MEDS: FENTAnyl (DRIP) 1000 mcg/100mL 100 ML IV SCH ×3 (01:04→17:23)
[2017-01-05] MEDS: DEXMEDETOMIDINE HCL 200 MCG in SOD CHLORIDE 0.9% 48 ML IV SCH ×14 (01:40→22:35)
[2017-01-05] MEDS: LORAZEPAM 2 MG INJ IV PRN ×5 (03:11→19:38)
[2017-01-05 05:06] LABS: BASOPHIL # 0.1 10^3/ul (0.0-0.1); BASOPHILS % 0.7 % (0.0-2.0); EOSINOPHILS # 0.5 10^3/ul (0.0-0.5); EOSINOPHILS % 5.7 % (0.0-7.0); HEMATOCRIT 25.3 % (42.0-52.0); HEMOGLOBIN 7.8 g/dl (14.0-18.0); LYMPHOCYTES # 0.8 10^3/ul (0.8-2.9); LYMPHOCYTES % 9.8 % (15.0-51.0); MEAN CORPUSCULAR HEMOGLOBIN 28.7 pg (29.0-33.0); MEAN CORPUSCULAR HGB CONC 30.8 g/dl (32.0-37.0); MEAN PLATELET VOLUME 11.4 fl (7.4-10.4); MONOCYTE # 0.8 10^3/ul (0.3-0.9); MONOCYTES % 9.3 % (0.0-11.0); NEUTROPHIL # 6.2 10^3/ul (1.6-7.5); NEUTROPHILS % 73.9 % (39.0-77.0); PLATELET COUNT 191 10^3/UL (140-415); RED BLOOD COUNT 2.72 10^6/ul (4.70-6.10); RED CELL DISTRIBUTION WIDTH 14.4 % (11.5-14.5); WHITE BLOOD COUNT 8.4 10^3/ul (4.8-10.8)
[2017-01-05] MEDS: LANSOPRAZOLE 30 MG CAP NGT SCH (05:25)
[2017-01-05] MEDS: SOD CHLORIDE 0.9% 1,000 ML IV SCH ×3 (05:25→17:24)
[2017-01-05 05:30] LABS: CALCIUM 7.7 mg/dl (8.4-10.2); CREATININE 0.74 mg/dl (0.61-1.24); PHOSPHORUS 3.7 mg/dl (2.5-4.9); POTASSIUM 3.8 mmol/L (3.5-5.1)
[2017-01-05 07:55] LABS: AADO2 Arterial 246.3 mmHg (7.0-24.0); Allen Test ACCEPTAB; Arterial Base Excess 2.7 mmol/L (-3.0-3); Arterial COHb 0.3 % (0.0-3.0); Arterial Fraction of Oxyhgb 97.6 % (93.0-99.0); Arterial HCO3 27.7 mmol/L (22.0-26.0); Arterial MetHb 0.2 % (0.0-1.5); Arterial Total Hemglobin 11.1 g/dl (12.0-18.0); MODE VENT - AC
[2017-01-05] MEDS: GABAPENTIN 300 MG CAP PO SCH ×3 (08:23→20:14)
[2017-01-05] MEDS: CEFEPIME 1GM/50 ML (PMX) 50 ML IVPB SCH ×2 (08:23→20:14)
[2017-01-05] MEDS: VANCOMYCIN 1.5 GM in SOD CHLORIDE 0.9% 250 ML IVPB SCH ×2 (08:23→17:59)
--- NOTE | 2017-01-05 08:48 | RADRPT ---
PROCEDURE: Chest 1 views. CLINICAL INDICATION: Shortness of breath. TECHNIQUE: AP views of the chest was obtained. COMPARISON: January 03, 2017 FINDINGS: The heart is large. Endotracheal and nasogastric tubes are stable and appear in grossly appropriate location. Right-sided PICC line is unchanged. Central pulmonary vascular congestion and interstitial prominence in both lungs is unchanged. Retrocardiac opacity has decreased. Patchy infiltrates in angelica th lungs have increased. Elevated right hemidiaphragm is noted. Osseous structures are intact. IMPRESSION: Cardiomegaly . Central pulmonary vascular congestion and interstitial prominence in both lungs. Interval decrease in retrocardiac opacity. Interval increase in patchy alveolar infiltrates throughout both lungs. Elevated right hemidiaphragm. RPTAT: AA .Nahid Russell MD, Date Time Electronically viewed and signed by .Nahid Russell MD, on 01/05/2017 08:48 .P/
[2017-01-05] MEDS: ENOXAPARIN 40 MG/0.4 ML SYG SC SCH (09:00)
--- NOTE | 2017-01-05 10:17 | PN ---
Date/Time of Note Date/Time of Note DATE: 01/05/17 TIME: 10:07 Assessment/Plan VTE Prophylaxis VTE Prophylaxis Intervention: SCD's Lines/Catheters IV Catheter Type (from Nrsg): PICC Line Central line still needed: Yes (For IV access) Urinary Cath still in place: Yes Reason Cath still needed: other (indicate) (While intubated) Assessment/Plan Assessment/Plan 46 yo male with: 1. Severe encephalopathy 2ry to drug abuse likely Bath salts and/or synthetic marijuana. Patient agitated, extremely combative despite Ativan and Haldol multiple doses given in the ER, had to be sedated and intubated because of danger to himself. Intubated, sedated now with fentanyl and Precedex for sedation, off paralytics. Likely encephalopathy secondary to drug use, cannabinoid synthetics and possibly bath salts. He also does have a history of bipolar disorder but he is levels are low so may be noncompliant with his outpatient antipsychotics and medications Repeat CT head wnl, EEG done and reading pending. 2. Acute respiratory Failure 2ry to severe Encephalopathy from Drug overuse, intubated, sedated and paralysed. Also likely aspirated and with aspiration PNA vs pneumonitis. On cefepime, WBC down to normal 3. Bipolar disorder: Likely noncompliant with psychiatric medications. Will resume once able to access p.o. or more awake 4. Right foot Lisfranc fracture: Pain control and ? splint 5. Anemia: Hemoglobin down to 7.8 this morning, Lovenox is discontinued, SCDs to lower extremities. Repeat H&H stat. No hematochezia or hematemesis noted. Blood transfusion as needed. Prophylaxis: Lovenox for DVT prophylaxis, Pepcid for GI prophylaxis Disposition: Still in ICU, intubated, sedated, weaning off sedation and off paralytics. Subjective 24 Hr Interval Summary Free Text/Dictation Patient currently on fentanyl and Precedex drip, he is off paralytic, off Versed and now just of propofol. Still intubated. Exam/Review of Systems Vital Signs Vitals Vital Signs Date Time Temp Pulse Resp B/P Pulse Ox O2 Delivery O2 Flow Rate FiO2 01/05/17 09:46 63 20 99 60 01/05/17 09:00 121/72 Mechanical Ventilator 01/05/17 08:00 99.6 Intake and Output 01/04/17 01/04/17 01/05/17 15:00 23:00 07:00 Intake Total 2164.417 ml 1548.321 ml 1617.001 ml Output Total 320 ml 800 ml 350 ml Balance 1844.417 ml 748.321 ml 1267.001 ml Exam Constitutional: obese, other (Sedated and intubated) Respiratory: clear to auscultation, other (On mechanical ventilation) Cardiovascular: nl pulses, regular rate and rhythm Gastrointestinal: non-tender, soft Musculoskeletal: nl extremities to inspection Extremities: normal pulses, other (No edema, clubbing or cyanosis) Neurological: other (Sedated, intubated) Results Result Diagram: 01/05/175 01/05/17424 Results 24 hrs Laboratory Tests Test 01/04/17 22:00 01/05/17 04:25 01/05/17 07:00 Vancomycin Level Trough 6.6 L White Blood Count 8.4 Red Blood Count 2.72 L Hemoglobin 7.8 L Hematocrit 25.3 L Mean Corpuscular Volume 93.0 Mean Corpuscular Hemoglobin 28.7 L Mean Corpuscular Hemoglobin Concent 30.8 L Red Cell Distribution Width 14.4 Platelet Count 191 Mean Platelet Volume 11.4 H Neutrophils % 73.9 Lymphocytes % 9.8 L Monocytes % 9.3 Eosinophils % 5.7 Basophils % 0.7 Nucleated Red Blood Cells % 0.0 Neutrophils # 6.2 Lymphocytes # 0.8 Monocytes # 0.8 Eosinophils # 0.5 Basophils # 0.1 Nucleated Red Blood Cells # 0.0 Sodium Level 145 H Potassium Level 3.8 Chloride Level 110 Carbon Dioxide Level 26 Anion Gap 13 Blood Urea Nitrogen 17 Creatinine 0.74 Glucose Level 117 Calcium Level 7.7 L Phosphorus Level 3.7 Magnesium Level 2.0 Blood Gas Specimen Source Blood arterial Arterial Blood Date Drawn 01/05/2017 7:40:02 AM Arterial Blood pH (Temp corrected) 7.412 Arterial Blood pCO2 (Temp correct) 44.5 Arterial Blood pO2 (Temp corrected) 132.6 H Arterial Blood HCO3 27.7 H Arterial Blood Base Excess 2.7 Arterial Blood Oxygen Saturation 98.1 H [place] Test ACCEPTAB Arterial Blood Gas Puncture Site Left Radial Arterial Blood Carboxyhemoglobin 0.3 Arterial Blood Methemoglobin 0.2 Blood Gas A-a O2 Differential 246.3 H Oxyhemoglobin Percent 97.6 Total Hemoglobin 11.1 L Blood Gas Temperature 37.0 Blood Gas Respiration Rate 20.0 Blood Gas Actual Respiration Rate 20 Blood Gas Modality VENT - AC FiO2 60.0 Blood Gas Tidal Volume 600.0 Blood Gas Low PEEP Setting 8.0 Blood Gas Notified Whom LC Blood Gas Notified Time 01/05/2017 7:55:34 AM Medications Medications Current Medications Carbamazepine (Tegretol Xr) 400 mg HS PO Last administered on 01/04/17 21:40 ; Admin Dose 400 MG; Start 12/31/16 at 21:00 Divalproex Sodium (Depakote Er) 500 mg HS PO Last administered on 01/04/17 21 :29; Admin Dose 500 MG; Start 12/31/16 at 21:00 Gabapentin (Neurontin) 600 mg TID PO Last administered on 01/05/17 08:23; Admin Dose 600 MG; Start 12/31/16 at 09:00 Acetaminophen (Tylenol Tab) 650 mg Q4H PRN PO pain/fever; Start 12/31/16 at 01 :00 Hydralazine HCl (Apresoline) 25 mg Q6H PRN PO sbp>160; Start 12/31/16 at 01:00 Enalaprilat (Vasotec Iv) 1.25 mg Q6H PRN IV sbp>160; Start 12/31/16 at 01:00 Ondansetron HCl (Zofran Inj) 4 mg Q4H PRN IV nausea; Start 12/31/16 at 01:00 Hydralazine HCl 10 mg 10 mg Q4H PRN IV ELEVATED SYSTOLIC BP Last administered on 01/02/17 13:12; Admin Dose 10 MG; Start 12/31/16 at 05:30 Propofol 100 ml @ 3.205 mls/ hr TITRATE IV Last administered on 01/05/17 05: 37; Admin Dose 9.614 MLS/HR; Start 12/31/16 at 05:30 Fentanyl 100 ml @ 2.5 mls/hr TITRATE IV Last administered on 01/05/17 09:18 ; Admin Dose 10 MLS/HR; Start 12/31/16 at 16:30 Midazolam HCl (Versed) 50 ml @ 1 mls/hr TITRATE IV Last administered on 01:04; Admin Dose 5 MLS/HR; Start 12/31/16 at 16:30 Enoxaparin Sodium 40 mg 40 mg DAILY SC Last administered on 01/04/17 08:30; Admin Dose 40 MG; Start 01/01/17 at 09:00 Cefepime HCl 50 ml @ 100 mls/hr Q12 IVPB Last administered on 01/05/17 08:23 ; Admin Dose 100 MLS/HR; Start 12/31/16 at 20:00 Vecuronium [place]/Dextrose (Vecuronium [place]/D5W) 100 ml @ 6.03 mls/hr TITRATE IV Last administered on 01/03/17 04:07; Admin Dose 6.03 MLS/HR; Start 01/01/17 at 06:00 Labetalol HCl (Labetalol) 10 mg Q4H PRN IV SBP GREATER THAN 160 Last administered on 01/02/17 14:09; Admin Dose 10 MG; Start 01/01/17 at 12:00 IV Flush 10 ml 10 ml PRN PRN IV IV PROTOCOL; Start 01/02/17 at 17:00 Sodium Chloride (NS) 1,000 ml @ 125 mls/hr Q8H IV Last administered on 05:25; Admin Dose 125 MLS/HR; Start 01/03/17 at 10:30 Lorazepam 2 mg 2 mg Q2H PRN IV PRN Agitation. Last administered on 01/05/17 08:24; Admin Dose 2 MG; Start 01/04/17 at 09:00 Dexmedetomidine HCl/Sodium Chloride (Precedex/NS) 50 ml @ 5.89 mls/hr TITRATE IV Last administered on 01/05/17 09:53; Admin Dose 41.26 MLS/HR; Start 01/04 at 12:30 Lansoprazole 30 mg 30 mg DAILY@06 NGT Last administered on 01/05/17 05:25; Admin Dose 30 MG; Start 01/05/17 at 06:00 Vancomycin HCl/ Sodium Chloride (Vancocin/NS) 250 ml @ 83.333 mls/ hr Q8H IVPB Last administered on 01/05/17 08:23; Admin Dose 83.333 MLS/HR; Start at 09:00 Miscellaneous Information (*Rx Drug Level Order Reminder*) VANCO TROUGH @ 0, 000 ON ... ONCE ONCE XX ; Start 01/06/17 at 00:00; Stop 01/06/17 at 00:01 TRENT NEWMAN Jan 05, 2017 10:17
--- NOTE | 2017-01-05 11:48 | CONS ---
Date/Time of Note Date/Time of Note DATE: 01/05/17 TIME: 11:44 Assessment/Plan Assessment/Plan Chief Complaint/Hosp Course dictated # [id number] Problems: Additional Assessment/Plan Ventilator setting; AC of 20, tidal volume 600, PEEP of 5, 60% FiO2. Patient is currently on fentanyl at 100 mics per hour, Versed 1 mg/h, Precedex drip. Chest x-ray was reviewed from today which is showing patchy bilateral pneumonia more pronounced in the left lung. Endotracheal tube is at an adequate level. Assessment and recommendations; 1. Patient admitted with respiratory failure likely due to aspiration pneumonia with multidrug overdose. 2. Requiring continuous heavy sedation because of extreme agitation whenever patient is taken off sedation or the dose reduced. Patient however has not been off continuous IV paralytics. 3. Underlying severe psychiatric illness. 4. Morbid obesity with possibly underlying sleep apnea. 5. Improving oxygenation. Continue current supportive care. Continue current antibiotics. Decrease sedation as tolerated. FiO2 has been decreased to 40%. Obtain follow-up chest x-ray in 24 hours. Weaning from ventilator with depend upon adequate mental status recovery. 35 minutes of critical care time was spent evaluating the patient. Consultation Date/Type/Reason Admit Date/Time Dec 31, 2016 at 00:30 Initial Consult Date 12/31/16 Type of Consultation: pulm/cc 24 HR Interval Summary Free Text/Dictation Patient's condition remains critical. Still requiring continuous sedation because of severe agitation whenever sedation dose is decreased. Patient however has remained hemodynamically stable. General exam; middle-aged male, morbidly obese, orally intubated, sedated. Currently in no distress. Exam/Review of Systems Vital Signs Vitals Vital Signs Date Time Temp Pulse Resp B/P Pulse Ox O2 Delivery O2 Flow Rate FiO2 01/05/17 11:02 66 20 99 50 01/05/17 11:00 115/63 Mechanical Ventilator 01/05/17 08:00 99.6 Intake and Output 01/04/17 01/04/17 01/05/17 15:00 23:00 07:00 Intake Total 2164.417 ml 1548.321 ml 1617.001 ml Output Total 320 ml 800 ml 350 ml Balance 1844.417 ml 748.321 ml 1267.001 ml Exam HEENT exam; supple neck, no JVD. No lymphadenopathy. Midline trachea. No thyromegaly. Patient is edentulous. Orally intubated. Pupils are small bilaterally. Chest exam; diminished breath sounds bilaterally. S1-S2 audible, no murmurs. Regular rhythm. Abdomen exam; protuberant. Bowel sounds audible. No organomegaly. Extremity exam; no peripheral edema. BALLISTICIAN exam; patient is sedated. Results Result Diagram: 01/05/17 1051 01/05/17 0425 Results 24 hrs Laboratory Tests Test 01/04/17 22:00 01/05/17 04:25 01/05/17 07:00 01/05/17 10:51 Vancomycin Level Trough 6.6 L White Blood Count 8.4 Red Blood Count 2.72 L Hemoglobin 7.8 L 8.0 L Hematocrit 25.3 L 25.0 L Mean Corpuscular Volume 93.0 Mean Corpuscular Hemoglobin 28.7 L Mean Corpuscular Hemoglobin Concent 30.8 L Red Cell Distribution Width 14.4 Platelet Count 191 Mean Platelet Volume 11.4 H Neutrophils % 73.9 Lymphocytes % 9.8 L Monocytes % 9.3 Eosinophils % 5.7 Basophils % 0.7 Nucleated Red Blood Cells % 0.0 Neutrophils # 6.2 Lymphocytes # 0.8 Monocytes # 0.8 Eosinophils # 0.5 Basophils # 0.1 Nucleated Red Blood Cells # 0.0 Sodium Level 145 H Potassium Level 3.8 Chloride Level 110 Carbon Dioxide Level 26 Anion Gap 13 Blood Urea Nitrogen 17 Creatinine 0.74 Glucose Level 117 Calcium Level 7.7 L Phosphorus Level 3.7 Magnesium Level 2.0 Blood Gas Specimen Source Blood arterial Arterial Blood Date Drawn 01/05/2017 7:40:02 AM Arterial Blood pH (Temp corrected) 7.412 Arterial Blood pCO2 (Temp correct) 44.5 Arterial Blood pO2 (Temp corrected) 132.6 H Arterial Blood HCO3 27.7 H Arterial Blood Base Excess 2.7 Arterial Blood Oxygen Saturation 98.1 H [place] Test ACCEPTAB Arterial Blood Gas Puncture Site Left Radial Arterial Blood Carboxyhemoglobin 0.3 Arterial Blood Methemoglobin 0.2 Blood Gas A-a O2 Differential 246.3 H Oxyhemoglobin Percent 97.6 Total Hemoglobin 11.1 L Blood Gas Temperature 37.0 Blood Gas Respiration Rate 20.0 Blood Gas Actual Respiration Rate 20 Blood Gas Modality VENT - AC FiO2 60.0 Blood Gas Tidal Volume 600.0 Blood Gas Low PEEP Setting 8.0 Blood Gas Notified Whom LC Blood Gas Notified Time 01/05/2017 7:55:34 AM Medications Medications Current Medications Carbamazepine (Tegretol Xr) 400 mg HS PO Last administered on 01/04/17 21:40 ; Admin Dose 400 MG; Start 12/31/16 at 21:00 Divalproex Sodium (Depakote Er) 500 mg HS PO Last administered on 01/04/17 21 :29; Admin Dose 500 MG; Start 12/31/16 at 21:00 Gabapentin (Neurontin) 600 mg TID PO Last administered on 01/05/17 08:23; Admin Dose 600 MG; Start 12/31/16 at 09:00 Acetaminophen (Tylenol Tab) 650 mg Q4H PRN PO pain/fever; Start 12/31/16 at 01 :00 Hydralazine HCl (Apresoline) 25 mg Q6H PRN PO sbp>160; Start 12/31/16 at 01:00 Enalaprilat (Vasotec Iv) 1.25 mg Q6H PRN IV sbp>160; Start 12/31/16 at 01:00 Ondansetron HCl (Zofran Inj) 4 mg Q4H PRN IV nausea; Start 12/31/16 at 01:00 Hydralazine HCl 10 mg 10 mg Q4H PRN IV ELEVATED SYSTOLIC BP Last administered on 01/02/17 13:12; Admin Dose 10 MG; Start 12/31/16 at 05:30 Propofol 100 ml @ 3.205 mls/ hr TITRATE IV Last administered on 01/05/17 11: 20; Admin Dose 6.409 MLS/HR; Start 12/31/16 at 05:30 Fentanyl 100 ml @ 2.5 mls/hr TITRATE IV Last administered on 01/05/17 09:18 ; Admin Dose 10 MLS/HR; Start 12/31/16 at 16:30 Midazolam HCl (Versed) 50 ml @ 1 mls/hr TITRATE IV Last administered on 11:20; Admin Dose 1 MLS/HR; Start 12/31/16 at 16:30 Enoxaparin Sodium 40 mg 40 mg DAILY SC Last administered on 01/04/17 08:30; Admin Dose 40 MG; Start 01/01/17 at 09:00 Cefepime HCl 50 ml @ 100 mls/hr Q12 IVPB Last administered on 01/05/17 08:23 ; Admin Dose 100 MLS/HR; Start 12/31/16 at 20:00 Vecuronium [place]/Dextrose (Vecuronium [place]/D5W) 100 ml @ 6.03 mls/hr TITRATE IV Last administered on 01/03/17 04:07; Admin Dose 6.03 MLS/HR; Start 01/01/17 at 06:00 Labetalol HCl (Labetalol) 10 mg Q4H PRN IV SBP GREATER THAN 160 Last administered on 01/02/17 14:09; Admin Dose 10 MG; Start 01/01/17 at 12:00 IV Flush 10 ml 10 ml PRN PRN IV IV PROTOCOL; Start 01/02/17 at 17:00 Sodium Chloride (NS) 1,000 ml @ 125 mls/hr Q8H IV Last administered on 05:25; Admin Dose 125 MLS/HR; Start 01/03/17 at 10:30 Lorazepam 2 mg 2 mg Q2H PRN IV PRN Agitation. Last administered on 01/05/17 08:24; Admin Dose 2 MG; Start 01/04/17 at 09:00 Dexmedetomidine HCl/Sodium Chloride (Precedex/NS) 50 ml @ 5.89 mls/hr TITRATE IV Last administered on 01/05/17 11:20; Admin Dose 41.26 MLS/HR; Start 01/04 at 12:30 Lansoprazole 30 mg 30 mg DAILY@06 NGT Last administered on 01/05/17 05:25; Admin Dose 30 MG; Start 01/05/17 at 06:00 Vancomycin HCl/ Sodium Chloride (Vancocin/NS) 250 ml @ 83.333 mls/ hr Q8H IVPB Last administered on 01/05/17 08:23; Admin Dose 83.333 MLS/HR; Start at 09:00 Miscellaneous Information (*Rx Drug Level Order Reminder*) VANCO TROUGH @ 0, 000 ON ... ONCE ONCE XX ; Start 01/06/17 at 00:00; Stop 01/06/17 at 00:01 VU FLORES Jan 05, 2017 11:48
[2017-01-05] MEDS: DIVALPROEX (ER) 500 MG TAB PO SCH (20:14)
[2017-01-05] MEDS: carBAMAZepine (XR) 100 MG TABSR PO SCH (20:14)
--- NOTE | 2017-01-05 22:15 | SP ---
DATE OF PROCEDURE: 01/05/2017 PROCEDURE: EEG. HISTORY: This is a 46-year-old male who was admitted with altered mental status, respiratory failur e, multitude drug overdose, and aspiration pneumonia. EEG is to rule out encephalopathy. CURRENT MEDICATIONS: 1. Tegretol. 2. Depakote. 3. Morphine. 4. Fentanyl. 5. Neurontin. PROCEDURE: Utilizing a 16-channel EEG machine, cap scalp electrodes were applied in accordance with International 10-20 system. [id number] and [id number] montages were displayed. Electrical i mpedances were measured and reported. DESCRIPTION: During the resting state, posterior dominant rhythm of about 3 to 4 Hz was seen bihemi spherically throughout the tracing. Photic stimulation had no response. Hyperventilation was not p erformed. There was no focal lateralizing or epileptiform discharge identified. INTERPRETATION: This is an abnormal EEG due to presence of bihemispheric slowing with appearance of delta activity without any epileptiform activity, consistent with severe encephalopathy. Please co rrelate these findings with the patient's clinical picture. Dictated By: SALINA PEREIRA/SHANELLE Conf#: [id number] DID#: [id number]
[2017-01-06] VITALS (32 sets, daily range): BP systolic 109–142; BP diastolic 59–89; PULSE 55–73; RESP 18–30
[2017-01-06] MEDS: VANCOMYCIN 1.5 GM in SOD CHLORIDE 0.9% 250 ML IVPB SCH ×2 (01:00→02:09)
[2017-01-06] MEDS: DEXMEDETOMIDINE HCL 200 MCG in SOD CHLORIDE 0.9% 48 ML IV SCH ×12 (01:35→15:04)
[2017-01-06] MEDS: LORAZEPAM 2 MG INJ IV PRN ×3 (03:06→07:30)
[2017-01-06] MEDS: FENTAnyl (DRIP) 1000 mcg/100mL 100 ML IV SCH ×3 (04:10→19:00)
[2017-01-06] MEDS: PROPOFOL 100 ML IV SCH ×6 (04:16→23:53)
[2017-01-06 05:21] LABS: BASOPHILS % 0.4 % (0.0-2.0); EOSINOPHILS # 0.5 10^3/ul (0.0-0.5); EOSINOPHILS % 6.6 % (0.0-7.0); HEMATOCRIT 22.5 % (42.0-52.0); HEMOGLOBIN 7.2 g/dl (14.0-18.0); LYMPHOCYTES % 13.8 % (15.0-51.0); MEAN CORPUSCULAR HEMOGLOBIN 29.8 pg (29.0-33.0); MEAN PLATELET VOLUME 12.6 fl (7.4-10.4); MONOCYTE # 0.8 10^3/ul (0.3-0.9); MONOCYTES % 10.1 % (0.0-11.0); NEUTROPHIL # 5.2 10^3/ul (1.6-7.5); NEUTROPHILS % 68.3 % (39.0-77.0); PLATELET COUNT 176 10^3/UL (140-415); RED BLOOD COUNT 2.42 10^6/ul (4.70-6.10); WHITE BLOOD COUNT 7.5 10^3/ul (4.8-10.8)
[2017-01-06] MEDS: SOD CHLORIDE 0.9% 1,000 ML IV SCH ×3 (05:45→18:49)
[2017-01-06] MEDS: LANSOPRAZOLE 30 MG CAP NGT SCH (05:45)
[2017-01-06 05:56] LABS: MAGNESIUM 1.9 mg/dl (1.7-2.5); PHOSPHORUS 3.6 mg/dl (2.5-4.9)
[2017-01-06 06:02] LABS: CALCIUM 7.3 mg/dl (8.4-10.2); CREATININE 0.63 mg/dl (0.61-1.24); POTASSIUM 3.3 mmol/L (3.5-5.1)
[2017-01-06] MEDS: CEFEPIME 1GM/50 ML (PMX) 50 ML IVPB SCH ×2 (08:26→20:53)
[2017-01-06] MEDS: ENOXAPARIN 40 MG/0.4 ML SYG SC SCH (08:26)
[2017-01-06] MEDS: GABAPENTIN 300 MG CAP PO SCH ×3 (08:26→20:53)
[2017-01-06] MEDS: MIDAZOLAM (DRIP) 50 mg/50 mL 50 ML IV SCH (08:27)
--- NOTE | 2017-01-06 08:42 | RADRPT ---
PROCEDURE: XR Chest AP portable CLINICAL INDICATION: Pneumonia TECHNIQUE: An AP portable radiograph of the chest was submitted. COMPARISON: 01/05/2017 FINDINGS: Support Hardware: The endotracheal tube tip has been withdrawn to 4 cm superior to the villa. The r ight upper extremity PICC catheter and the NG tube are stable in positioning. Cardiovascular: The heart remains normal in size while the the peripheral pulmonary vasculature agai n appears congested. Lung Marie: Worsening interstitial infiltrates extend from the prior of the regions and again there is air space opacification projecting to the heart within the left lower lung zone. Pleural Spaces: No pneumothorax or pleural effusion is identified. Osseous Structures: The osseous structures appear intact. Soft Tissues: The soft tissues appear generous. IMPRESSION: 1. The endotracheal tube is been withdrawn to 4 cm superior to the villa while the right upper ext remity PICC catheter and NG tube are stable in positioning. 2. Normal sized heart with pulmonary vascular congestion and worsening pulmonary edema. 3. Alveolar infiltrate versus atelectasis seen to the heart at the left lower lung zone, unchanged. Physician Carol Date Time Electronically viewed and signed by Physician Carol on 01/06/2017 08:42 /
[2017-01-06] MEDS ORDERED: FUROSEMIDE 40 MG INJ IV ONE (09:30)
[2017-01-06] MEDS ORDERED: POTASSIUM CHLORIDE 250 ML IVPB ONE (09:30)
[2017-01-06] MEDS: PANTOPRAZOLE 40 MG INJ IV SCH ×2 (09:43→17:23)
[2017-01-06] MEDS: VANCOMYCIN 1.75 GM in NS 500 ML IVPB SCH ×2 (09:44→17:23)
[2017-01-06] MEDS ORDERED: VANCOMYCIN 2 GM in SOD CHLORIDE 0.9% 500 ML IVPB SCH (10:00)
[2017-01-06 10:36] LABS: HEMATOCRIT 24.3 % (42.0-52.0); HEMOGLOBIN 7.9 g/dl (14.0-18.0)
--- NOTE | 2017-01-06 10:43 | PN ---
Date/Time of Note Date/Time of Note DATE: 01/06/17 TIME: 10:14 Assessment/Plan VTE Prophylaxis VTE Prophylaxis Intervention: SCD's Lines/Catheters IV Catheter Type (from Nrsg): PICC Line Central line still needed: Yes (IV access) Urinary Cath still in place: Yes Reason Cath still needed: other (indicate) (Intubated) Assessment/Plan Assessment/Plan 46 yo male with: 1. Severe encephalopathy 2ry to drug abuse likely Bath salts and/or synthetic marijuana. Patient agitated, extremely combative despite Ativan and Haldol multiple doses given in the ER, had to be sedated and intubated because of danger to himself. Intubated, sedated now with propofol, fentanyl and Precedex for sedation, off paralytics. Likely encephalopathy secondary to drug use, cannabinoid synthetics and possibly bath salts. He also does have a history of bipolar disorder but he is levels are low so may be noncompliant with his outpatient antipsychotics and medications Repeat CT head wnl, EEG done and reading pending. 2. Acute respiratory Failure 2ry to severe Encephalopathy from Drug overuse, intubated, sedated and paralysed. Also likely aspirated and with aspiration PNA vs pneumonitis. On cefepime, WBC down to normal 3. Bipolar disorder: Likely noncompliant with psychiatric medications. Will resume once able to access p.o. or more awake 4. Right foot Lisfranc fracture: Pain control and ? splint 5. Anemia: Hemoglobin still on the low side, up and down but down to 7.2 today , Lovenox discontinued, SCDs to lower extremity. Was unable to tolerate tube feeding overnight. Repeat H&H stat. He grown output from NG tube noted. Change proton pump inhibitors to Protonix IV twice daily. Blood transfusion as needed, GI consult, patient may need EGD. Prophylaxis: SCDs for DVT prophylaxis, Protonix for GI prophylaxis Disposition: Still in ICU, intubated, sedated, weaning off sedation and off paralytics. Subjective 24 Hr Interval Summary Free Text/Dictation Patient still encephalopathic, requiring multiple sedating agent due to severe agitation when off sedation. Afebrile. Hemoglobin noted to be at 7.2 today. He will be rechecked. According to nurses patient has been vomiting and not tolerating tube feeding. Will have GI consult for possible EGD. Repeat H&H pending with possible transfusion. Exam/Review of Systems Vital Signs Vitals Vital Signs Date Time Temp Pulse Resp B/P Pulse Ox O2 Delivery O2 Flow Rate FiO2 01/06/17 09:00 62 21 99 60 01/06/17 08:00 99.0 128/75 Mechanical Ventilator Intake and Output 01/05/17 01/05/17 01/06/17 15:00 23:00 07:00 Intake Total 1849.678 ml 1824.562 ml 1362.442 ml Output Total 905 ml 890 ml 780 ml Balance 944.678 ml 934.562 ml 582.442 ml Exam Constitutional: other (Sedated and intubated) Respiratory: diminished breath sounds (at bases bilaterally ), other (on Vent ) Cardiovascular: nl pulses, regular rate and rhythm Gastrointestinal: non-tender, soft Musculoskeletal: other (right foot with fractures ) Extremities: normal pulses Neurological: other (Sedated and intubated, occasionally agitated.) Results Result Diagram: 01/06/17 0410 01/06/17 0410 Results 24 hrs Laboratory Tests Test 01/05/17 10:51 01/06/17 00:29 01/06/17 04:10 Hemoglobin 8.0 L 7.2 L Hematocrit 25.0 L 22.5 L Vancomycin Level Trough 9.7 L White Blood Count 7.5 Red Blood Count 2.42 L Mean Corpuscular Volume 93.0 Mean Corpuscular Hemoglobin 29.8 Mean Corpuscular Hemoglobin Concent 32.0 Red Cell Distribution Width 14.0 Platelet Count 176 Mean Platelet Volume 12.6 H Neutrophils % 68.3 Lymphocytes % 13.8 L Monocytes % 10.1 Eosinophils % 6.6 Basophils % 0.4 Nucleated Red Blood Cells % 0.0 Neutrophils # 5.2 Lymphocytes # 1.0 Monocytes # 0.8 Eosinophils # 0.5 Basophils # 0.0 Nucleated Red Blood Cells # 0.0 Sodium Level 146 H Potassium Level 3.3 L Chloride Level 113 H Carbon Dioxide Level 25 Anion Gap 11 Blood Urea Nitrogen 14 Creatinine 0.63 Glucose Level 97 Calcium Level 7.3 L Phosphorus Level 3.6 Magnesium Level 1.9 Medications Medications Current Medications Carbamazepine (Tegretol Xr) 400 mg HS PO Last administered on 01/05/17t 20:14 ; Admin Dose 400 MG; Start 12/31/16 at 21:00 Divalproex Sodium (Depakote Er) 500 mg HS PO Last administered on 01/05/17 20 :14; Admin Dose 500 MG; Start 12/31/16 at 21:00 Gabapentin (Neurontin) 600 mg TID PO Last administered on 01/05/17 20:14; Admin Dose 600 MG; Start 12/31/16 at 09:00 Acetaminophen (Tylenol Tab) 650 mg Q4H PRN PO pain/fever; Start 12/31/16 at 01 :00 Hydralazine HCl (Apresoline) 25 mg Q6H PRN PO sbp>160; Start 12/31/16 at 01:00 Enalaprilat (Vasotec Iv) 1.25 mg Q6H PRN IV sbp>160; Start 12/31/16 at 01:00 Ondansetron HCl (Zofran Inj) 4 mg Q4H PRN IV nausea; Start 12/31/16 at 01:00 Hydralazine HCl 10 mg 10 mg Q4H PRN IV ELEVATED SYSTOLIC BP Last administered on 01/02/17 13:12; Admin Dose 10 MG; Start 12/31/16 at 05:30 Propofol 100 ml @ 3.205 mls/ hr TITRATE IV Last administered on 01/06/17 08: 27; Admin Dose 9.614 MLS/HR; Start 12/31/16 at 05:30 Fentanyl 100 ml @ 2.5 mls/hr TITRATE IV Last administered on 01/06/17 04:10 ; Admin Dose 10 MLS/HR; Start 12/31/16 at 16:30 Midazolam HCl 50 ml @ 1 mls/hr TITRATE IV Last administered on 01/06/17 08:27 ; Admin Dose 2 MLS/HR; Start 12/31/16 at 16:30 Cefepime HCl 50 ml @ 100 mls/hr Q12 IVPB Last administered on 01/06/17 08:26 ; Admin Dose 100 MLS/HR; Start 12/31/16 at 20:00 Vecuronium [place]/Dextrose (Vecuronium [place]/D5W) 100 ml @ 6.03 mls/hr TITRATE IV Last administered on 01/03/17 04:07; Admin Dose 6.03 MLS/HR; Start 10/13/17 at 06:00 Labetalol HCl (Labetalol) 10 mg Q4H PRN IV SBP GREATER THAN 160 Last administered on 01/02/17 14:09; Admin Dose 10 MG; Start 01/01/17 at 12:00 IV Flush 10 ml 10 ml PRN PRN IV IV PROTOCOL; Start 01/02/17 at 17:00 Sodium Chloride (NS) 1,000 ml @ 125 mls/hr Q8H IV Last administered on 05:45; Admin Dose 125 MLS/HR; Start 01/03/17 at 10:30 Lorazepam 2 mg 2 mg Q2H PRN IV PRN Agitation. Last administered on 01/06/17 07:30; Admin Dose 2 MG; Start 01/04/17 at 09:00 Dexmedetomidine HCl 200 mcg/ Sodium Chloride 50 ml @ 5.89 mls/hr TITRATE IV Last administered on 01/06/17 09:45; Admin Dose 41.26 MLS/HR; Start 01/04/17 at 12:30 Vancomycin HCl/ Sodium Chloride (Vancocin/NS) 500 ml @ 125 mls/hr Q8H IVPB Last administered on 01/06/17 09:44; Admin Dose 125 MLS/HR; Start 01/06/17 at 10:00 Pantoprazole 40 mg 40 mg BID@06,18 IV Last administered on 01/06/17 09:43; Admin Dose 40 MG; Start 01/06/17 at 09:30 Potassium Chloride (KCl 40 MEQ/250 ML NS) 250 ml @ 62.5 mls/hr ONCE ONCE IVPB Last administered on 01/06/17 09:44; Admin Dose 62.5 MLS/HR; Start at 09:30; Stop 01/06/17 at 13:29 Procedures Procedures DATE OF PROCEDURE: 01/05/2017 PROCEDURE: EEG. HISTORY: This is a 46-year-old male who was admitted with altered mental status , respiratory failure, multitude drug overdose, and aspiration pneumonia. EEG is to rule out encephalopathy. CURRENT MEDICATIONS: 1. Tegretol. 2. Depakote. 3. Morphine. 4. Fentanyl. 5. Neurontin. PROCEDURE: Utilizing a 16-channel EEG machine, cap scalp electrodes were applied in accordance with International 10-20 system. [id number] and scalp -to-ear montages were displayed. Electrical impedances were measured and reported. DESCRIPTION: During the resting state, posterior dominant rhythm of about 3 to 4 Hz was seen bihemispherically throughout the tracing. Photic stimulation had no response. Hyperventilation was not performed. There was no focal lateralizing or epileptiform discharge identified. INTERPRETATION: This is an abnormal EEG due to presence of bihemispheric slowing with appearance of delta activity without any epileptiform activity, consistent with severe encephalopathy. Please correlate these findings with the patient's clinical picture. Dictated By: TRENT COHEN MD Jan 06, 2017 10:28
--- NOTE | 2017-01-06 11:50 | CONS ---
Date/Time of Note Date/Time of Note DATE: 01/06/17 TIME: 11:46 Assessment/Plan Assessment/Plan Chief Complaint/Hosp Course dictated # [id number] Problems: Additional Assessment/Plan Ventilator setting; AC of 20, tidal volume 600, PEEP of 8, 60% FiO2. Patient is currently on fentanyl drip 100 mics per hour, propofol 50 mics per kilogram per minute, Versed 3 mg/h. Chest x-ray was reviewed from today which is showing patchy bilateral infiltrates. Assessment and recommendations; 1. Patient admitted with drug overdose leading to respiratory failure with bilateral aspiration pneumonia. 2. Extreme agitation whenever sedation dose is decreased. Continue current treatment. Decrease PEEP to 5. With further reduction in FiO2 is tolerated. Weaning from ventilator with depend upon adequate mental status recovery and resolution of pneumonia. Consultation Date/Type/Reason Admit Date/Time Dec 31, 2016 at 00:30 Initial Consult Date 12/31/16 Type of Consultation: pulm/cc 24 HR Interval Summary Free Text/Dictation Patient's condition remains critical. Requiring high-dose combination sedative medications. Patient however has remained hemodynamically stable. General exam; middle-aged male, morbidly obese, orally intubated, sedated, currently in no distress. Exam/Review of Systems Vital Signs Vitals Vital Signs Date Time Temp Pulse Resp B/P Pulse Ox O2 Delivery O2 Flow Rate FiO2 01/06/17 11:00 61 20 126/74 98 Mechanical Ventilator 01/06/17 09:00 60 01/06/17 08:00 99.0 Intake and Output 01/05/17 01/05/17 01/06/17 15:00 23:00 07:00 Intake Total 1849.678 ml 1824.562 ml 1362.442 ml Output Total 905 ml 890 ml 780 ml Balance 944.678 ml 934.562 ml 582.442 ml Exam HEENT exam; supple neck, no JVD. No lymphadenopathy. Midline trachea. No thyromegaly. Patient has bilateral subconjunctival edema. Patient is edentulous. Orally intubated. Chest exam; diminished but clear breath sounds. S1-S2 audible, no murmurs. Regular rhythm. Abdomen exam; protuberant. Bowel sounds audible. No organomegaly. Extremity exam; no peripheral edema. Pulses 1+ bilaterally. [employer] exam; patient is sedated. Results Result Diagram: 01/06/17 1027 01/06/17 0410 Results 24 hrs Laboratory Tests Test 01/06/17 00:29 01/06/17 04:10 01/06/17 10:27 Vancomycin Level Trough 9.7 L White Blood Count 7.5 Red Blood Count 2.42 L Hemoglobin 7.2 L 7.9 L Hematocrit 22.5 L 24.3 L Mean Corpuscular Volume 93.0 Mean Corpuscular Hemoglobin 29.8 Mean Corpuscular Hemoglobin Concent 32.0 Red Cell Distribution Width 14.0 Platelet Count 176 Mean Platelet Volume 12.6 H Neutrophils % 68.3 Lymphocytes % 13.8 L Monocytes % 10.1 Eosinophils % 6.6 Basophils % 0.4 Nucleated Red Blood Cells % 0.0 Neutrophils # 5.2 Lymphocytes # 1.0 Monocytes # 0.8 Eosinophils # 0.5 Basophils # 0.0 Nucleated Red Blood Cells # 0.0 Sodium Level 146 H Potassium Level 3.3 L Chloride Level 113 H Carbon Dioxide Level 25 Anion Gap 11 Blood Urea Nitrogen 14 Creatinine 0.63 Glucose Level 97 Calcium Level 7.3 L Phosphorus Level 3.6 Magnesium Level 1.9 Medications Medications Current Medications Carbamazepine (Tegretol Xr) 400 mg HS PO Last administered on 01/05/17 20:14 ; Admin Dose 400 MG; Start 12/31/16 at 21:00 Divalproex Sodium (Depakote Er) 500 mg HS PO Last administered on 01/05/17 20 :14; Admin Dose 500 MG; Start 12/31/16 at 21:00 Gabapentin (Neurontin) 600 mg TID PO Last administered on 01/05/17 20:14; Admin Dose 600 MG; Start 12/31/16 at 09:00 Acetaminophen (Tylenol Tab) 650 mg Q4H PRN PO pain/fever; Start 12/31/16 at 01 :00 Hydralazine HCl (Apresoline) 25 mg Q6H PRN PO sbp>160; Start 12/31/16 at 01:00 Enalaprilat (Vasotec Iv) 1.25 mg Q6H PRN IV sbp>160; Start 12/31/16 at 01:00 Ondansetron HCl (Zofran Inj) 4 mg Q4H PRN IV nausea; Start 12/31/16 at 01:00 Hydralazine HCl 10 mg 10 mg Q4H PRN IV ELEVATED SYSTOLIC BP Last administered on 01/02/17 13:12; Admin Dose 10 MG; Start 12/31/16 at 05:30 Propofol 100 ml @ 3.205 mls/ hr TITRATE IV Last administered on 01/06/17 11: 44; Admin Dose 25.637 MLS/HR; Start 12/31/16 at 05:30 Fentanyl 100 ml @ 2.5 mls/hr TITRATE IV Last administered on 01/06/17 04:10 ; Admin Dose 10 MLS/HR; Start 12/31/16 at 16:30 Midazolam HCl 50 ml @ 1 mls/hr TITRATE IV Last administered on 01/06/17 08:27 ; Admin Dose 2 MLS/HR; Start 12/31/16 at 16:30 Cefepime HCl 50 ml @ 100 mls/hr Q12 IVPB Last administered on 01/06/17 08:26 ; Admin Dose 100 MLS/HR; Start 12/31/16 at 20:00 Vecuronium [place]/Dextrose (Vecuronium [place]/D5W) 100 ml @ 6.03 mls/hr TITRATE IV Last administered on 01/03/17 04:07; Admin Dose 6.03 MLS/HR; Start 01/01/17 at 06:00 Labetalol HCl (Labetalol) 10 mg Q4H PRN IV SBP GREATER THAN 160 Last administered on 01/02/17 14:09; Admin Dose 10 MG; Start 01/01/17 at 12:00 IV Flush 10 ml 10 ml PRN PRN IV IV PROTOCOL; Start 01/02/17 at 17:00 Sodium Chloride (NS) 1,000 ml @ 125 mls/hr Q8H IV Last administered on 05:45; Admin Dose 125 MLS/HR; Start 01/03/17 at 10:30 Lorazepam 2 mg 2 mg Q2H PRN IV PRN Agitation. Last administered on 01/06/17 07:30; Admin Dose 2 MG; Start 01/04/17 at 09:00 Dexmedetomidine HCl 200 mcg/ Sodium Chloride 50 ml @ 5.89 mls/hr TITRATE IV Last administered on 01/06/17 09:45; Admin Dose 41.26 MLS/HR; Start 01/04/17 at 12:30 Vancomycin HCl/ Sodium Chloride (Vancocin/NS) 500 ml @ 125 mls/hr Q8H IVPB Last administered on 01/06/17 09:44; Admin Dose 125 MLS/HR; Start 01/06/17 at 10:00 Pantoprazole 40 mg 40 mg BID@,18 IV Last administered on 01/06/17 09:43; Admin Dose 40 MG; Start 01/06/17 at 09:30 Potassium Chloride (KCl 40 MEQ/250 ML NS) 250 ml @ 62.5 mls/hr ONCE ONCE IVPB Last administered on 01/06/17 09:44; Admin Dose 62.5 MLS/HR; Start at 09:30; Stop 01/06/17 at 13:29 Miscellaneous Information (*Rx Drug Level Order Reminder*) VANCO TROUGH @ 0, 900 ON ... ONCE ONCE XX ; Start 01/07/17 at 09:00; Stop 01/07/17 at 09:01 VU FLORES Jan 06, 2017 11:50
[2017-01-06] MEDS: DEXMEDETOMIDINE HCL IV SCH ×4 (16:26→23:54)
[2017-01-06] MEDS: SOD CHLORIDE 0.9% IV SCH ×4 (16:26→23:54)
--- NOTE | 2017-01-06 16:39 | CONS ---
Date/Time of Note Date/Time of Note DATE: 01/06/17 TIME: 15:57 Assessment/Plan Assessment/Plan Chief Complaint/Hosp Course Summary Assessment and Plan: Assessment: Anemia Severe encephalopathy Secondary to drug use Acute Respiratory failure Intubated and sedated Plan: Continue to monitor h/h Continue PPI therapy Will proceed with EGD if warranted Patient seen in collaboration with Dr. Miranda Chief Complaint/Reason for Visit: Coffee ground emesis History of Present Illness: This is a 46 year old male with history of bipolar disorder with history of drug abuse. He was admitted to the hospital for drug overdose likely bath salts and or synthetic marijuana. Patient has since been in ICU sedated and intubated being treated severe encephalopathy and acute respiratory failure. He began to have coffee-ground emesis hemoglobin 2 days ago and again last night. Hgb was evaluated and had dropped from 9.4 (01/04) to 7.8 (01/05). Hemoglobin is now being checked every 12 hours and is relatively stable, currently 7.9. Stool for OB has been ordered, not yet received. Will continue to monitor H/H and will proceed with EGD if warranted. History obtained from medical history as patient is sedated and intubated. Past Medical History: Bipolar Drug abuse Allergies: No known allergies Family History: Unable to obtain Social History: History of drug use Problems: Consultation Date/Type/Reason Admit Date/Time Dec 31, 2016 at 00:30 Date of Consultation: Jan 06, 2017 Type of Consultation: GI Reason for Consultation coffee-ground emesis Subjective hx not possible: pt critical status Past Surgical History Bipolar Social History Smoking Status: Never smoker Exam/Review of Systems Vital Signs Vitals Vital Signs Date Time Temp Pulse Resp B/P Pulse Ox O2 Delivery O2 Flow Rate FiO2 01/06/17 14:00 62 20 123/76 Mechanical Ventilator 01/06/17 13:00 99 01/06/17 12:00 99.5 01/06/17 09:00 60 Intake and Output 01/05/17 01/05/17 01/06/17 15:00 23:00 07:00 Intake Total 1849.678 ml 1824.562 ml 1362.442 ml Output Total 905 ml 890 ml 780 ml Balance 944.678 ml 934.562 ml 582.442 ml Exam Constitutional: obese, other (Intubated and sedated) Head: normocephalic Eyes: nl conjunctiva ENMT: nl external ears & nose Neck: supple Respiratory: crackles/rales, diminished breath sounds Cardiovascular: regular rate and rhythm Gastrointestinal: bowel sounds, nl liver, spleen, soft, No firm, No hepatomegaly, No mass, No rebound or guarding, No splenomegaly, No tender Genitourinary - Male: nl penis Results Result Diagram: 01/06/17 1027 01/06/17 0410 Results 24 hrs Laboratory Tests Test 01/06/17 00:29 01/06/17 04:10 01/06/17 10:27 Vancomycin Level Trough 9.7 L White Blood Count 7.5 Red Blood Count 2.42 L Hemoglobin 7.2 L 7.9 L Hematocrit 22.5 L 24.3 L Mean Corpuscular Volume 93.0 Mean Corpuscular Hemoglobin 29.8 Mean Corpuscular Hemoglobin Concent 32.0 Red Cell Distribution Width 14.0 Platelet Count 176 Mean Platelet Volume 12.6 H Neutrophils % 68.3 Lymphocytes % 13.8 L Monocytes % 10.1 Eosinophils % 6.6 Basophils % 0.4 Nucleated Red Blood Cells % 0.0 Neutrophils # 5.2 Lymphocytes # 1.0 Monocytes # 0.8 Eosinophils # 0.5 Basophils # 0.0 Nucleated Red Blood Cells # 0.0 Sodium Level 146 H Potassium Level 3.3 L Chloride Level 113 H Carbon Dioxide Level 25 Anion Gap 11 Blood Urea Nitrogen 14 Creatinine 0.63 Glucose Level 97 Calcium Level 7.3 L Phosphorus Level 3.6 Magnesium Level 1.9 Medications Medications Current Medications Carbamazepine (Tegretol Xr) 400 mg HS PO Last administered on 01/05/17 20:14 ; Admin Dose 400 MG; Start 12/31/16 at 21:00 Divalproex Sodium (Depakote Er) 500 mg HS PO Last administered on 01/05/17 20 :14; Admin Dose 500 MG; Start 12/31/16 at 21:00 Gabapentin (Neurontin) 600 mg TID PO Last administered on 01/05/17 20:14; Admin Dose 600 MG; Start 12/31/16 at 09:00 Acetaminophen (Tylenol Tab) 650 mg Q4H PRN PO pain/fever; Start 12/31/16 at 01 :00 Hydralazine HCl (Apresoline) 25 mg Q6H PRN PO sbp>160; Start 12/31/16 at 01:00 Enalaprilat (Vasotec Iv) 1.25 mg Q6H PRN IV sbp>160; Start 12/31/16 at 01:00 Ondansetron HCl (Zofran Inj) 4 mg Q4H PRN IV nausea; Start 12/31/16 at 01:00 Hydralazine HCl 10 mg 10 mg Q4H PRN IV ELEVATED SYSTOLIC BP Last administered on 01/02/17 13:12; Admin Dose 10 MG; Start 12/31/16 at 05:30 Propofol 100 ml @ 3.205 mls/ hr TITRATE IV Last administered on 01/06/17 15: 47; Admin Dose 19.228 MLS/HR; Start 12/31/16 at 05:30 Fentanyl 100 ml @ 2.5 mls/hr TITRATE IV Last administered on 01/06/17 14:02 ; Admin Dose 10 MLS/HR; Start 12/31/16 at 16:30 Midazolam HCl 50 ml @ 1 mls/hr TITRATE IV Last administered on 01/06/17 08:27 ; Admin Dose 2 MLS/HR; Start 12/31/16 at 16:30 Cefepime HCl 50 ml @ 100 mls/hr Q12 IVPB Last administered on 01/06/17 08:26 ; Admin Dose 100 MLS/HR; Start 12/31/16 at 20:00 Vecuronium [place]/Dextrose (Vecuronium [place]/D5W) 100 ml @ 6.03 mls/hr TITRATE IV Last administered on 01/03/17 04:07; Admin Dose 6.03 MLS/HR; Start 01/01/17 at 06:00 Labetalol HCl (Labetalol) 10 mg Q4H PRN IV SBP GREATER THAN 160 Last administered on 01/02/17 14:09; Admin Dose 10 MG; Start 01/01/17 at 12:00 IV Flush 10 ml 10 ml PRN PRN IV IV PROTOCOL; Start 01/02/17 at 17:00 Sodium Chloride (NS) 1,000 ml @ 125 mls/hr Q8H IV Last administered on 05:45; Admin Dose 125 MLS/HR; Start 01/03/17 at 10:30 Lorazepam 2 mg 2 mg Q2H PRN IV PRN Agitation. Last administered on 01/06/17 07:30; Admin Dose 2 MG; Start 01/04/17 at 09:00 Vancomycin HCl/ Sodium Chloride (Vancocin/NS) 500 ml @ 125 mls/hr Q8H IVPB Last administered on 01/06/17 09:44; Admin Dose 125 MLS/HR; Start 01/06/17 at 10:00 Pantoprazole (Protonix Iv) 40 mg BID@06,18 IV Last administered on 01/06/17 09:43; Admin Dose 40 MG; Start 01/06/17 at 09:30 Miscellaneous Information VANCO TROUGH @ 0,900 ON ... ONCE ONCE XX ; Start at 09:00; Stop 01/07/17 at 09:01 Dexmedetomidine HCl/Sodium Chloride (Precedex/NS) 100 ml @ 5.89 mls/hr TITRATE IV ; Start 01/06/17 at 14:30 Copies To: CC: KRYSTA MIRANDA MD, VICTORIA Jan 06, 2017 16:16
[2017-01-06] MEDS ORDERED: PANTOPRAZOLE 40 MG INJ IV SCH (18:00)
[2017-01-06] MEDS: DIVALPROEX (ER) 500 MG TAB PO SCH (20:53)
[2017-01-06] MEDS: carBAMAZepine (XR) 100 MG TABSR PO SCH (20:54)
[2017-01-07] VITALS (36 sets, daily range): BP systolic 116–152; BP diastolic 70–92; PULSE 48–83; RESP 15–39
[2017-01-07] MEDS: FENTAnyl (DRIP) 1000 mcg/100mL 100 ML IV SCH ×3 (00:27→18:38)
[2017-01-07] MEDS: DEXMEDETOMIDINE HCL IV SCH ×9 (00:29→22:10)
[2017-01-07] MEDS: SOD CHLORIDE 0.9% IV SCH ×9 (00:29→22:10)
[2017-01-07] MEDS: VANCOMYCIN 1.75 GM in NS 500 ML IVPB SCH ×3 (01:35→17:00)
[2017-01-07] MEDS: MIDAZOLAM (DRIP) 50 mg/50 mL 50 ML IV SCH ×3 (01:59→20:05)
[2017-01-07] MEDS: PROPOFOL 100 ML IV SCH ×7 (02:26→20:56)
[2017-01-07] MEDS: SOD CHLORIDE 0.9% 1,000 ML IV SCH ×4 (03:19→20:57)
[2017-01-07 06:23] LABS: BASOPHIL # 0.1 10^3/ul (0.0-0.1); BASOPHILS % 0.7 % (0.0-2.0); EOSINOPHILS # 0.5 10^3/ul (0.0-0.5); HEMATOCRIT 23.9 % (42.0-52.0); HEMOGLOBIN 7.7 g/dl (14.0-18.0); LYMPHOCYTES # 0.9 10^3/ul (0.8-2.9); LYMPHOCYTES % 13.9 % (15.0-51.0); MEAN CORPUSCULAR HGB CONC 32.2 g/dl (32.0-37.0); MEAN PLATELET VOLUME 12.6 fl (7.4-10.4); MONOCYTE # 0.7 10^3/ul (0.3-0.9); MONOCYTES % 10.4 % (0.0-11.0); NEUTROPHIL # 4.5 10^3/ul (1.6-7.5); PLATELET COUNT 191 10^3/UL (140-415); RED BLOOD COUNT 2.57 10^6/ul (4.70-6.10); RED CELL DISTRIBUTION WIDTH 13.8 % (11.5-14.5); WHITE BLOOD COUNT 6.7 10^3/ul (4.8-10.8)
[2017-01-07] MEDS: PANTOPRAZOLE 40 MG INJ IV SCH ×3 (06:23→20:56)
[2017-01-07 06:49] LABS: CREATININE 0.66 mg/dl (0.61-1.24); POTASSIUM 3.5 mmol/L (3.5-5.1)
[2017-01-07 07:06] LABS: PHOSPHORUS 3.8 mg/dl (2.5-4.9)
[2017-01-07] MEDS: GABAPENTIN 300 MG CAP PO SCH ×3 (08:03→20:56)
[2017-01-07] MEDS: CEFEPIME 1GM/50 ML (PMX) 50 ML IVPB SCH ×2 (08:04→20:58)
--- NOTE | 2017-01-07 11:18 | CONS ---
Date/Time of Note Date/Time of Note DATE: 01/07/17 TIME: : Consult Date/Type/Reason Admit Date/Time Dec 31, 2016 at 00:30 Initial Consult Date 12/31/16 Type of Consultation: Pulmonary Subjective Patient remains intubated on mechanical ventilation. Multiple sedatives and pain control. Still has significant agitation off sedation. Objective Vital Signs Date Time Temp Pulse Resp B/P Pulse Ox O2 Delivery O2 Flow Rate FiO2 01/07/17 11:00 53 20 100 40 01/07/17 10:00 140/84 Mechanical Ventilator 01/07/17 08:00 98.4 Intake and Output 01/06/17 01/06/17 01/07/17 15:00 23:00 07:00 Intake Total 2378.179 ml 2036.511 ml 1204.98 ml Output Total 2496 ml 660 ml 555 ml Balance -117.821 ml 1376.511 ml 649.98 ml Exam PHYSICAL EXAMINATION GENERAL: Well-nourished well-developed intubated on mechanical ventilation, opens eyes and appears somewhat agitated. Orally intubated. VITAL SIGNS: see below. HEENT: Pupils equal, round, and reactive to light. CARDIAC: S1, S2, 1/6 systolic ejection murmur CHEST: Diminished air entry bilaterally. ABDOMEN: Mildly distended. Bowel sounds present no guarding or rebound EXTREMITIES: No cyanosis, clubbing edema +1 NEUROLOGIC: Generalized weakness Results/Medications Result Diagram: 01/07/17 0400 01/07/17 0400 Results 24 hrs Laboratory Tests Test 01/07/17 04:00 01/07/17 09:45 White Blood Count 6.7 Red Blood Count 2.57 L Hemoglobin 7.7 L Hematocrit 23.9 L Mean Corpuscular Volume 93.0 Mean Corpuscular Hemoglobin 30.0 Mean Corpuscular Hemoglobin Concent 32.2 Red Cell Distribution Width 13.8 Platelet Count 191 Mean Platelet Volume 12.6 H Neutrophils % 67.0 Lymphocytes % 13.9 L Monocytes % 10.4 Eosinophils % 7.0 Basophils % 0.7 Nucleated Red Blood Cells % 0.0 Neutrophils # 4.5 Lymphocytes # 0.9 Monocytes # 0.7 Eosinophils # 0.5 Basophils # 0.1 Nucleated Red Blood Cells # 0.0 Sodium Level 147 H Potassium Level 3.5 Chloride Level 110 Carbon Dioxide Level 28 Anion Gap 13 Blood Urea Nitrogen 16 Creatinine 0.66 Glucose Level 98 Calcium Level 8.0 L Phosphorus Level 3.8 Magnesium Level 2.0 Vancomycin Level Trough 10.4 Medications Current Medications Carbamazepine (Tegretol Xr) 400 mg HS PO Last administered on 01/06/17 20:54 ; Admin Dose 400 MG; Start 12/31/16 at 21:00 Divalproex Sodium (Depakote Er) 500 mg HS PO Last administered on 01/06/17 20 :53; Admin Dose 500 MG; Start 12/31/16 at 21:00 Gabapentin (Neurontin) 600 mg TID PO Last administered on 01/07/17 08:03; Admin Dose 600 MG; Start 12/31/16 at 09:00 Acetaminophen (Tylenol Tab) 650 mg Q4H PRN PO pain/fever; Start 12/31/16 at 01 :00 Hydralazine HCl (Apresoline) 25 mg Q6H PRN PO sbp>160; Start 12/31/16 at 01:00 Enalaprilat (Vasotec Iv) 1.25 mg Q6H PRN IV sbp>160; Start 12/31/16 at 01:00 Ondansetron HCl (Zofran Inj) 4 mg Q4H PRN IV nausea; Start 12/31/16 at 01:00 Hydralazine HCl 10 mg 10 mg Q4H PRN IV ELEVATED SYSTOLIC BP Last administered on 01/02/17 13:12; Admin Dose 10 MG; Start 12/31/16 at 05:30 Propofol 100 ml @ 3.205 mls/ hr TITRATE IV Last administered on 01/07/17 08: 30; Admin Dose 12.818 MLS/HR; Start 12/31/16 at 05:30 Fentanyl 100 ml @ 2.5 mls/hr TITRATE IV Last administered on 01/07/17 09:45 ; Admin Dose 10 MLS/HR; Start 12/31/16 at 16:30 Midazolam HCl 50 ml @ 1 mls/hr TITRATE IV Last administered on 01/07/17 06:30 ; Admin Dose 3 MLS/HR; Start 12/31/16 at 16:30 Cefepime HCl 50 ml @ 100 mls/hr Q12 IVPB Last administered on 01/07/17 08:04 ; Admin Dose 100 MLS/HR; Start 12/31/16 at 20:00 Vecuronium [place]/Dextrose (Vecuronium [place]/D5W) 100 ml @ 6.03 mls/hr TITRATE IV Last administered on 01/03/17 04:07; Admin Dose 6.03 MLS/HR; Start 01/01/17 at 06:00 Labetalol HCl (Labetalol) 10 mg Q4H PRN IV SBP GREATER THAN 160 Last administered on 01/02/17 14:09; Admin Dose 10 MG; Start 01/01/17 at 12:00 IV Flush 10 ml 10 ml PRN PRN IV IV PROTOCOL; Start 01/02/17 at 17:00 Sodium Chloride (NS) 1,000 ml @ 125 mls/hr Q8H IV Last administered on 03:19; Admin Dose 125 MLS/HR; Start 01/03/17 at 10:30 Lorazepam 2 mg 2 mg Q2H PRN IV PRN Agitation. Last administered on 01/06/17 07:30; Admin Dose 2 MG; Start 01/04/17 at 09:00 Vancomycin HCl/ Sodium Chloride (Vancocin/NS) 500 ml @ 125 mls/hr Q8H IVPB Last administered on 01/07/17 11:09; Admin Dose 125 MLS/HR; Start 01/06/17 at 10:00 Pantoprazole 40 mg 40 mg BID@06,18 IV Last administered on 01/07/17 06:23; Admin Dose 40 MG; Start 01/06/17 at 09:30 Dexmedetomidine HCl/Sodium Chloride (Precedex/NS) 100 ml @ 5.89 mls/hr TITRATE IV Last administered on 01/07/17 11:08; Admin Dose 41.26 MLS/HR; Start 01/06 at 14:30 Assessment/Plan Chief Complaint/Hosp Course Assessment 1. Acute hypoxic respiratory failure 2. Possible aspiration pneumonia 3. History of drug overdose 4. History of psychiatric disease 5. Possible sleep apnea Plan 1. Decrease sedation as tolerated 2. CPAP trial if possible 3. Continue tube feeding. 4. DVT and GI prophylaxis 5. Psych eval postextubation. Disposition continue ICU care Problems: BRIANNA SAAVEDRA MD, [facility] Jan 07, 2017 11:18
--- NOTE | 2017-01-07 11:21 | PN ---
Date/Time of Note Date/Time of Note DATE: 01/07/17 TIME: 11:08 Assessment/Plan VTE Prophylaxis VTE Prophylaxis Intervention: SCD's Lines/Catheters IV Catheter Type (from Nrsg): PICC Line Central line still needed: Yes (IV access) Urinary Cath still in place: Yes Reason Cath still needed: other (indicate) (intubated) Assessment/Plan Assessment/Plan 46 yo male with: 1. Severe encephalopathy 2ry to drug abuse likely Bath salts and/or synthetic marijuana. Patient agitated, extremely combative despite Ativan and Haldol multiple doses given in the ER, had to be sedated and intubated because of danger to himself. Intubated, sedated now with propofol, fentanyl and Precedex for sedation, off paralytics. Likely encephalopathy secondary to drug use, cannabinoid synthetics and possibly bath salts. He also does have a history of bipolar disorder but he is levels are low so may be noncompliant with his outpatient antipsychotics and medications Repeat CT head wnl, EEG showing encephalopathy as expected. 2. Acute respiratory Failure 2ry to severe Encephalopathy from Drug overuse, intubated, sedated and paralysed. Also likely aspirated and with aspiration PNA vs pneumonitis. On cefepime, WBC down to normal Still FiO2 of 40% and PEEP of 5 Still on Precedex, fentanyl, propofol, Versed for sedation 3. Bipolar disorder: Likely noncompliant with psychiatric medications. Will resume once able to access p.o. or more awake 4. Right foot Lisfranc fracture: Pain control and ? splint 5. Anemia: Hemoglobin still on the low side, up and down but down to 7.7 today , Lovenox discontinued, SCDs to lower extremities. KUB/abdominal x-ray pending, if no signs of obstruction, will put on Reglan and start tube feeding. Appreciate GI recommendation, will continue to monitor. Continue twice daily proton pump inhibitors. Blood transfusion as needed. Prophylaxis: SCDs for DVT prophylaxis, Protonix for GI prophylaxis Disposition: Still in ICU, intubated, sedated, trying to weaning off sedation and off paralytics. Patient non-transferable at this time, discussed with pulmonary/critical care. Subjective 24 Hr Interval Summary Free Text/Dictation Patient still sedated, intubated, extremely agitated with titration of sedation. Restraints on board. Exam/Review of Systems Vital Signs Vitals Vital Signs Date Time Temp Pulse Resp B/P Pulse Ox O2 Delivery O2 Flow Rate FiO2 01/07/17 10:00 51 20 140/84 100 Mechanical Ventilator 01/07/17 08:00 98.4 01/07/17 05:18 50 Intake and Output 01/06/17 01/06/17 01/07/17 14:59 22:59 06:59 Intake Total 2378.179 ml 1835.681 ml 1405.81 ml Output Total 2376 ml 690 ml 645 ml Balance 2.179 ml 1145.681 ml 760.81 ml Exam Constitutional: other (Sedated with multiple sedating agent, restrained, intubated) Respiratory: diminished breath sounds (Bases bilaterally), other (Intubated) Cardiovascular: nl pulses, regular rate and rhythm Gastrointestinal: non-tender, soft Musculoskeletal: other (Right foot with some areas of bruising, known multiple fractures.) Extremities: normal pulses Neurological: lethargic, other (Intubated, sedated, restrained) Results Result Diagram: 01/07/17 0400 01/07/17 0400 Results 24 hrs Laboratory Tests Test 01/07/17 04:00 01/07/17 09:45 White Blood Count 6.7 Red Blood Count 2.57 L Hemoglobin 7.7 L Hematocrit 23.9 L Mean Corpuscular Volume 93.0 Mean Corpuscular Hemoglobin 30.0 Mean Corpuscular Hemoglobin Concent 32.2 Red Cell Distribution Width 13.8 Platelet Count 191 Mean Platelet Volume 12.6 H Neutrophils % 67.0 Lymphocytes % 13.9 L Monocytes % 10.4 Eosinophils % 7.0 Basophils % 0.7 Nucleated Red Blood Cells % 0.0 Neutrophils # 4.5 Lymphocytes # 0.9 Monocytes # 0.7 Eosinophils # 0.5 Basophils # 0.1 Nucleated Red Blood Cells # 0.0 Sodium Level 147 H Potassium Level 3.5 Chloride Level 110 Carbon Dioxide Level 28 Anion Gap 13 Blood Urea Nitrogen 16 Creatinine 0.66 Glucose Level 98 Calcium Level 8.0 L Phosphorus Level 3.8 Magnesium Level 2.0 Vancomycin Level Trough 10.4 Medications Medications Current Medications Carbamazepine (Tegretol Xr) 400 mg HS PO Last administered on 01/06/17t 20:54 ; Admin Dose 400 MG; Start 12/31/16 at 21:00 Divalproex Sodium (Depakote Er) 500 mg HS PO Last administered on 01/06/17 20 :53; Admin Dose 500 MG; Start 12/31/16 at 21:00 Gabapentin (Neurontin) 600 mg TID PO Last administered on 01/07/17 08:03; Admin Dose 600 MG; Start 12/31/16 at 09:00 Acetaminophen (Tylenol Tab) 650 mg Q4H PRN PO pain/fever; Start 12/31/16 at 01 :00 Hydralazine HCl (Apresoline) 25 mg Q6H PRN PO sbp>160; Start 12/31/16 at 01:00 Enalaprilat (Vasotec Iv) 1.25 mg Q6H PRN IV sbp>160; Start 12/31/16 at 01:00 Ondansetron HCl (Zofran Inj) 4 mg Q4H PRN IV nausea; Start 12/31/16 at 01:00 Hydralazine HCl 10 mg 10 mg Q4H PRN IV ELEVATED SYSTOLIC BP Last administered on 01/02/17 13:12; Admin Dose 10 MG; Start 12/31/16 at 05:30 Propofol 100 ml @ 3.205 mls/ hr TITRATE IV Last administered on 01/07/17 08: 30; Admin Dose 12.818 MLS/HR; Start 12/31/16 at 05:30 Fentanyl 100 ml @ 2.5 mls/hr TITRATE IV Last administered on 01/07/17 09:45 ; Admin Dose 10 MLS/HR; Start 12/31/16 at 16:30 Midazolam HCl 50 ml @ 1 mls/hr TITRATE IV Last administered on 01/07/17 06:30 ; Admin Dose 3 MLS/HR; Start 12/31/16 at 16:30 Cefepime HCl 50 ml @ 100 mls/hr Q12 IVPB Last administered on 01/07/17 08:04 ; Admin Dose 100 MLS/HR; Start 12/31/16 at 20:00 Vecuronium [place]/Dextrose (Vecuronium [place]/D5W) 100 ml @ 6.03 mls/hr TITRATE IV Last administered on 01/03/17 04:07; Admin Dose 6.03 MLS/HR; Start 01/01/17 at 06:00 Labetalol HCl (Labetalol) 10 mg Q4H PRN IV SBP GREATER THAN 160 Last administered on 01/02/17 14:09; Admin Dose 10 MG; Start 01/01/17 at 12:00 IV Flush 10 ml 10 ml PRN PRN IV IV PROTOCOL; Start 01/02/17 at 17:00 Sodium Chloride (NS) 1,000 ml @ 125 mls/hr Q8H IV Last administered on 03:19; Admin Dose 125 MLS/HR; Start 01/03/17 at 10:30 Lorazepam 2 mg 2 mg Q2H PRN IV PRN Agitation. Last administered on 01/06/17 07:30; Admin Dose 2 MG; Start 01/04/17 at 09:00 Vancomycin HCl/ Sodium Chloride (Vancocin/NS) 500 ml @ 125 mls/hr Q8H IVPB Last administered on 01/07/17 01:35; Admin Dose 125 MLS/HR; Start 01/06/17 at 10:00 Pantoprazole 40 mg 40 mg BID@06,18 IV Last administered on 01/07/17 06:23; Admin Dose 40 MG; Start 01/06/17 at 09:30 Dexmedetomidine HCl/Sodium Chloride (Precedex/NS) 100 ml @ 5.89 mls/hr TITRATE IV Last administered on 01/07/17 08:30; Admin Dose 41.26 MLS/HR; Start 01/06 at 14:30 TRENT NEWMAN Jan 07, 2017 11:21
--- NOTE | 2017-01-07 12:08 | PN ---
Date/Time of Note Date/Time of Note DATE: 01/07/17 TIME: 11:59 Assessment/Plan VTE Prophylaxis VTE Prophylaxis Intervention: SCD's Lines/Catheters IV Catheter Type (from Nrs): PICC Line Central line still needed: Yes (Medication) Urinary Cath still in place: Yes (Monitor output) Reason Cath still needed: other (indicate) (Monitor output) Assessment/Plan Chief Complaint/Hosp Course Assessment: Anemia/stable Severe encephalopathy likely secondary to drug abuse Acute Respiratory failure Intubated and sedated Plan: No active GI bleed Will proceed with EGD only if warranted Continue to monitor h/h Continue PPI therapy Patient seen in collaboration with Dr. Miranda Subjective: Course reviewed with nursing staff Patient interviewed and examined All labs, imaging and other results reviewed No further episodes of hematemesis Small amounts of bile collected via NG tube Patient remains sedated and intubated Problems: Exam/Review of Systems Vital Signs Vitals Vital Signs Date Time Temp Pulse Resp B/P Pulse Ox O2 Delivery O2 Flow Rate FiO2 01/07/17 11:00 53 20 100 40 01/07/17 10:00 140/84 Mechanical Ventilator 01/07/17 08:00 98.4 Intake and Output 01/06/17 01/06/17 01/07/17 15:00 23:00 07:00 Intake Total 2378.179 ml 2036.511 ml 1204.98 ml Output Total 2496 ml 660 ml 555 ml Balance -117.821 ml 1376.511 ml 649.98 ml Exam Constitutional: other (Intubated and sedated) Head: normocephalic ENMT: nl external ears & nose Neck: supple Cardiovascular: regular rate and rhythm Gastrointestinal: bowel sounds, other (Obese), soft, No distended, No firm, No hepatomegaly, No mass, No rebound or guarding, No splenomegaly, No surgical scars Skin: nl turgor Results Result Diagram: 01/07/17 0400 01/07/17 0400 Results 24 hrs Laboratory Tests Test 01/07/17 04:00 01/07/17 09:45 White Blood Count 6.7 Red Blood Count 2.57 L Hemoglobin 7.7 L Hematocrit 23.9 L Mean Corpuscular Volume 93.0 Mean Corpuscular Hemoglobin 30.0 Mean Corpuscular Hemoglobin Concent 32.2 Red Cell Distribution Width 13.8 Platelet Count 191 Mean Platelet Volume 12.6 H Neutrophils % 67.0 Lymphocytes % 13.9 L Monocytes % 10.4 Eosinophils % 7.0 Basophils % 0.7 Nucleated Red Blood Cells % 0.0 Neutrophils # 4.5 Lymphocytes # 0.9 Monocytes # 0.7 Eosinophils # 0.5 Basophils # 0.1 Nucleated Red Blood Cells # 0.0 Sodium Level 147 H Potassium Level 3.5 Chloride Level 110 Carbon Dioxide Level 28 Anion Gap 13 Blood Urea Nitrogen 16 Creatinine 0.66 Glucose Level 98 Calcium Level 8.0 L Phosphorus Level 3.8 Magnesium Level 2.0 Vancomycin Level Trough 10.4 Medications Medications Current Medications Carbamazepine (Tegretol Xr) 400 mg HS PO Last administered on 01/06/17 20:54 ; Admin Dose 400 MG; Start 12/31/16 at 21:00 Divalproex Sodium (Depakote Er) 500 mg HS PO Last administered on 01/06/17 20 :53; Admin Dose 500 MG; Start 12/31/16 at 21:00 Gabapentin (Neurontin) 600 mg TID PO Last administered on 01/07/17 08:03; Admin Dose 600 MG; Start 12/31/16 at 09:00 Acetaminophen (Tylenol Tab) 650 mg Q4H PRN PO pain/fever; Start 12/31/16 at 01 :00 Hydralazine HCl (Apresoline) 25 mg Q6H PRN PO sbp>160; Start 12/31/16 at 01:00 Enalaprilat (Vasotec Iv) 1.25 mg Q6H PRN IV sbp>160; Start 12/31/16 at 01:00 Ondansetron HCl (Zofran Inj) 4 mg Q4H PRN IV nausea; Start 12/31/16 at 01:00 Hydralazine HCl 10 mg 10 mg Q4H PRN IV ELEVATED SYSTOLIC BP Last administered on 01/02/17 13:12; Admin Dose 10 MG; Start 12/31/16 at 05:30 Propofol 100 ml @ 3.205 mls/ hr TITRATE IV Last administered on 01/07/17 08: 30; Admin Dose 12.818 MLS/HR; Start 12/31/16 at 05:30 Fentanyl 100 ml @ 2.5 mls/hr TITRATE IV Last administered on 01/07/17 09:45 ; Admin Dose 10 MLS/HR; Start 12/31/16 at 16:30 Midazolam HCl 50 ml @ 1 mls/hr TITRATE IV Last administered on 01/07/17 06:30 ; Admin Dose 3 MLS/HR; Start 12/31/16 at 16:30 Cefepime HCl 50 ml @ 100 mls/hr Q12 IVPB Last administered on 01/07/17 08:04 ; Admin Dose 100 MLS/HR; Start 12/31/16 at 20:00 Vecuronium [place]/Dextrose (Vecuronium [place]/D5W) 100 ml @ 6.03 mls/hr TITRATE IV Last administered on 01/03/17 04:07; Admin Dose 6.03 MLS/HR; Start 01/01/17 at 06:00 Labetalol HCl (Labetalol) 10 mg Q4H PRN IV SBP GREATER THAN 160 Last administered on 01/02/17 14:09; Admin Dose 10 MG; Start 01/01/17 at 12:00 IV Flush 10 ml 10 ml PRN PRN IV IV PROTOCOL; Start 01/02/17 at 17:00 Sodium Chloride (NS) 1,000 ml @ 125 mls/hr Q8H IV Last administered on 03:19; Admin Dose 125 MLS/HR; Start 01/03/17 at 10:30 Lorazepam 2 mg 2 mg Q2H PRN IV PRN Agitation. Last administered on 01/06/17 07:30; Admin Dose 2 MG; Start 01/04/17 at 09:00 Vancomycin HCl/ Sodium Chloride (Vancocin/NS) 500 ml @ 125 mls/hr Q8H IVPB Last administered on 01/07/17 11:09; Admin Dose 125 MLS/HR; Start 01/06/17 at 10:00 Pantoprazole 40 mg 40 mg BID@06,18 IV Last administered on 01/07/17 06:23; Admin Dose 40 MG; Start 01/06/17 at 09:30 Dexmedetomidine HCl/Sodium Chloride (Precedex/NS) 100 ml @ 5.89 mls/hr TITRATE IV Last administered on 01/07/17 11:08; Admin Dose 41.26 MLS/HR; Start 01/06 at 14:30 JULY MCKENNA Jan 07, 2017 12:08
[2017-01-07] MEDS: LORAZEPAM 2 MG INJ IV PRN ×3 (13:50→22:16)
--- NOTE | 2017-01-07 16:02 | RADRPT ---
PROCEDURE: X-ray, Abdomen. CLINICAL INDICATION: Pain. Evaluate for obstruction or ileus. TECHNIQUE: Abdominal x-ray, single frontal view. COMPARISON: 12/30/2016. FINDINGS: A nonobstructive bowel gas pattern is present. There is no evidence of free intra-abdominal air. T here are no abnormal calcifications. An enteric tube terminates within the body of the stomach. Skel etal structures are unremarkable. IMPRESSION: Unremarkable abdominal x-ray. RPTAT: [id number] .Maribel Arceo MD, MD Date Time Electronically viewed and signed by .Maribel Arceo MD, MD on 01/07/2017 16:02 .T/
[2017-01-07] MEDS: METOCLOPRAMIDE 10 MG INJ IV SCH (17:33)
[2017-01-07] MEDS: carBAMAZepine (XR) 100 MG TABSR PO SCH (20:55)
[2017-01-07] MEDS: DIVALPROEX (ER) 500 MG TAB PO SCH (21:12)
[2017-01-08] VITALS (49 sets, daily range): BP systolic 126–153; BP diastolic 67–97; PULSE 53–83; RESP 18–30
[2017-01-08] MEDS: PROPOFOL 100 ML IV SCH ×9 (00:14→23:37)
[2017-01-08] MEDS: METOCLOPRAMIDE 10 MG INJ IV SCH ×5 (00:14→23:39)
[2017-01-08] MEDS: DEXMEDETOMIDINE HCL IV SCH ×9 (00:44→22:03)
[2017-01-08] MEDS: SOD CHLORIDE 0.9% IV SCH ×9 (00:44→22:03)
[2017-01-08] MEDS: VANCOMYCIN 1.75 GM in NS 500 ML IVPB SCH ×3 (01:13→17:22)
[2017-01-08] MEDS: FENTAnyl (DRIP) 1000 mcg/100mL 100 ML IV SCH ×3 (04:15→14:37)
[2017-01-08 04:51] LABS: BASOPHILS % 0.5 % (0.0-2.0); EOSINOPHILS # 0.5 10^3/ul (0.0-0.5); HEMATOCRIT 22.3 % (42.0-52.0); HEMOGLOBIN 7.3 g/dl (14.0-18.0); LYMPHOCYTES # 0.8 10^3/ul (0.8-2.9); LYMPHOCYTES % 9.6 % (15.0-51.0); MEAN CORPUSCULAR HEMOGLOBIN 29.8 pg (29.0-33.0); MEAN CORPUSCULAR HGB CONC 32.7 g/dl (32.0-37.0); MEAN PLATELET VOLUME 12.4 fl (7.4-10.4); MONOCYTE # 0.8 10^3/ul (0.3-0.9); MONOCYTES % 10.1 % (0.0-11.0); NEUTROPHIL # 5.8 10^3/ul (1.6-7.5); NEUTROPHILS % 72.5 % (39.0-77.0); PLATELET COUNT 199 10^3/UL (140-415); RED BLOOD COUNT 2.45 10^6/ul (4.70-6.10); RED CELL DISTRIBUTION WIDTH 13.4 % (11.5-14.5)
[2017-01-08 05:19] LABS: ALBUMIN 2.8 g/dl (3.3-4.9); ALBUMIN/GLOBULIN RATIO 0.9; BILIRUBIN,INDIRECT 0.2 mg/dl (0-1.1); BILIRUBIN,TOTAL 0.2 mg/dl (0.2-1.3); CALCIUM 7.7 mg/dl (8.4-10.2); CREATININE 0.63 mg/dl (0.61-1.24); POTASSIUM 3.3 mmol/L (3.5-5.1); TOTAL PROTEIN 5.9 g/dl (6.1-8.1)
[2017-01-08] MEDS: SOD CHLORIDE 0.9% 1,000 ML IV SCH ×2 (05:27→17:21)
[2017-01-08] MEDS: MIDAZOLAM (DRIP) 50 mg/50 mL 50 ML IV SCH ×3 (07:33→22:03)
[2017-01-08 07:41] LABS: MAGNESIUM 1.8 mg/dl (1.7-2.5); PHOSPHORUS 3.9 mg/dl (2.5-4.9)
[2017-01-08] MEDS: GABAPENTIN 300 MG CAP PO SCH ×3 (09:11→20:18)
[2017-01-08] MEDS: CEFEPIME 1GM/50 ML (PMX) 50 ML IVPB SCH ×2 (09:12→20:17)
--- NOTE | 2017-01-08 10:27 | CONS ---
Date/Time of Note Date/Time of Note DATE: 01/08/17 TIME: 10:23 Assessment/Plan Assessment/Plan Chief Complaint/Hosp Course dictated # [id number] Problems: Additional Assessment/Plan Ventilator setting; AC of 20, tidal volume 600, PEEP of 5, 40% FiO2. Patient is currently on propofol 40 mics per kilogram per minute, Precedex 1.4 mics per kilogram per minute, fentanyl 100 mics per hour, 35 mg/h. Assessment and recommendations; 1. Patient admitted with multidrug overdose resulting in respiratory failure. 2. Unable to be weaned off from multiple sedative medications due to extreme agitation. 3. Underlying severe psychiatric illness. 4. Mild bilateral pneumonia. Patient currently on appropriate antibiotic regimen. 5. Morbid obesity. Continue current treatment. Sedation vacation as tolerated. Weaning from ventilator with depend upon adequate mental status recovery. Consultation Date/Type/Reason Admit Date/Time Dec 31, 2016 at 00:30 Initial Consult Date 12/31/16 Type of Consultation: Pulmonary/critical care 24 HR Interval Summary Free Text/Dictation Patient's condition remains critical. Still requiring high-dose combination sedative medications to keep the patient, and preventing him from climbing out of bed. Patient however has remained hemodynamically stable. General exam; young male, morbidly obese, appearing mildly agitated. Exam/Review of Systems Vital Signs Vitals Vital Signs Date Time Temp Pulse Resp B/P Pulse Ox O2 Delivery O2 Flow Rate FiO2 01/08/17 09:30 76 25 143/81 95 01/08/17 09:00 Mechanical Ventilator 01/08/17 07:30 99.0 01/08/17 05:35 40 Intake and Output 01/07/17 01/07/17 01/08/17 15:00 23:00 07:00 Intake Total 1610.524 ml 1660.916 ml 2025.176 ml Output Total 1025 ml 1485 ml 1215 ml Balance 585.524 ml 175.916 ml 810.176 ml Exam HEENT exam; supple neck, JVD difficult to see because of short neck. Patient is edentulous. No thyromegaly. No neck masses. Orally intubated. Pupils are small bilaterally. Chest exam; clear to auscultation. S1-S2 audible, no murmurs. Regular rhythm. Abdomen exam; soft, protuberant. No organomegaly. Bowel sounds audible. Extremity exam; no edema. [employer] exam; patient is sedated. Results Result Diagram: 01/08/17 0400 01/08/17 0400 Results 24 hrs Laboratory Tests Test 01/08/17 04:00 White Blood Count 8.0 Red Blood Count 2.45 L Hemoglobin 7.3 L Hematocrit 22.3 L Mean Corpuscular Volume 91.0 Mean Corpuscular Hemoglobin 29.8 Mean Corpuscular Hemoglobin Concent 32.7 Red Cell Distribution Width 13.4 Platelet Count 199 Mean Platelet Volume 12.4 H Neutrophils % 72.5 Lymphocytes % 9.6 L Monocytes % 10.1 Eosinophils % 6.0 Basophils % 0.5 Nucleated Red Blood Cells % 0.0 Neutrophils # 5.8 Lymphocytes # 0.8 Monocytes # 0.8 Eosinophils # 0.5 Basophils # 0.0 Nucleated Red Blood Cells # 0.0 Sodium Level 146 H Potassium Level 3.3 L Chloride Level 111 H Carbon Dioxide Level 26 Anion Gap 12 Blood Urea Nitrogen 12 Creatinine 0.63 Glucose Level 96 Calcium Level 7.7 L Phosphorus Level 3.9 Magnesium Level 1.8 Total Bilirubin 0.2 Direct Bilirubin 0.00 Indirect Bilirubin 0.2 Aspartate Amino Transf (AST/SGOT) 30 Alanine Aminotransferase (ALT/SGPT) 54 Alkaline Phosphatase 231 H Total Protein 5.9 L Albumin 2.8 L Globulin 3.10 Albumin/Globulin Ratio 0.90 Medications Medications Current Medications Carbamazepine (Tegretol Xr) 400 mg HS PO Last administered on 01/07/17 20:55 ; Admin Dose 400 MG; Start 12/31/16 at 21:00 Divalproex Sodium (Depakote Er) 500 mg HS PO Last administered on 01/07/17 21 :12; Admin Dose 500 MG; Start 12/31/16 at 21:00 Gabapentin (Neurontin) 600 mg TID PO Last administered on 01/08/17 09:11; Admin Dose 600 MG; Start 12/31/16 at 09:00 Acetaminophen (Tylenol Tab) 650 mg Q4H PRN PO pain/fever; Start 12/31/16 at 01 :00 Hydralazine HCl (Apresoline) 25 mg Q6H PRN PO sbp>160; Start 12/31/16 at 01:00 Enalaprilat (Vasotec Iv) 1.25 mg Q6H PRN IV sbp>160; Start 12/31/16 at 01:00 Ondansetron HCl (Zofran Inj) 4 mg Q4H PRN IV nausea; Start 12/31/16 at 01:00 Hydralazine HCl 10 mg 10 mg Q4H PRN IV ELEVATED SYSTOLIC BP Last administered on 01/02/17 13:12; Admin Dose 10 MG; Start 12/31/16 at 05:30 Propofol 100 ml @ 3.205 mls/ hr TITRATE IV Last administered on 01/08/17 10: 05; Admin Dose 32.046 MLS/HR; Start 12/31/16 at 05:30 Fentanyl 100 ml @ 2.5 mls/hr TITRATE IV Last administered on 01/08/17 04:15 ; Admin Dose 10 MLS/HR; Start 12/31/16 at 16:30 Midazolam HCl 50 ml @ 1 mls/hr TITRATE IV Last administered on 01/08/17 07:33 ; Admin Dose 5 MLS/HR; Start 12/31/16 at 16:30 Cefepime HCl 50 ml @ 100 mls/hr Q12 IVPB Last administered on 01/08/17 09:12 ; Admin Dose 100 MLS/HR; Start 12/31/16 at 20:00 Vecuronium [place]/Dextrose (Vecuronium [place]/D5W) 100 ml @ 6.03 mls/hr TITRATE IV Last administered on 01/03/17 04:07; Admin Dose 6.03 MLS/HR; Start 01/01/17 at 06:00 Labetalol HCl (Labetalol) 10 mg Q4H PRN IV SBP GREATER THAN 160 Last administered on 01/02/17 14:09; Admin Dose 10 MG; Start 01/01/17 at 12:00 IV Flush 10 ml 10 ml PRN PRN IV IV PROTOCOL; Start 01/02/17 at 17:00 Sodium Chloride (NS) 1,000 ml @ 125 mls/hr Q8H IV Last administered on 05:27; Admin Dose 125 MLS/HR; Start 01/03/17 at 10:30 Lorazepam 2 mg 2 mg Q2H PRN IV PRN Agitation. Last administered on 01/07/17 22:16; Admin Dose 2 MG; Start 01/04/17 at 09:00 Vancomycin HCl/ Sodium Chloride (Vancocin/NS) 500 ml @ 125 mls/hr Q8H IVPB Last administered on 01/08/17 10:07; Admin Dose 125 MLS/HR; Start 01/06/17 at 10:00 Pantoprazole 40 mg 40 mg BID@06,18 IV Last administered on 01/07/17 20:56; Admin Dose 40 MG; Start 01/06/17 at 09:30 Dexmedetomidine HCl/Sodium Chloride (Precedex/NS) 100 ml @ 5.89 mls/hr TITRATE IV Last administered on 01/08/17 08:30; Admin Dose 41.26 MLS/HR; Start 01/06 at 14:30 Metoclopramide HCl (Reglan) 5 mg Q6 IV Last administered on 01/08/17 05:27; Admin Dose 5 MG; Start 01/07/17 at 18:00 VU FLORES Jan 08, 2017 10:27
--- NOTE | 2017-01-08 11:01 | PN ---
Date/Time of Note Date/Time of Note DATE: 01/08/17 TIME: 10:55 Assessment/Plan VTE Prophylaxis VTE Prophylaxis Intervention: SCD's Lines/Catheters IV Catheter Type (from Nrsg): PICC Line Central line still needed: Yes (IV access) Urinary Cath still in place: Yes Reason Cath still needed: other (indicate) (Intubated) Assessment/Plan Assessment/Plan 46 yo male with: 1. Severe encephalopathy 2ry to drug abuse likely Bath salts and/or synthetic marijuana. Patient agitated, extremely combative despite Ativan and Haldol multiple doses given in the ER, had to be sedated and intubated because of danger to himself. Intubated, sedated now with propofol, fentanyl and Precedex for sedation, off paralytics. Likely encephalopathy secondary to drug use, cannabinoid synthetics and possibly bath salts. He also does have a history of bipolar disorder but he is levels are low so may be noncompliant with his outpatient antipsychotics and medications CT head 2 since admission are both wnl, EEG showing encephalopathy as expected while patient was on for sedating agent and paralytics. 2. Acute respiratory Failure 2ry to severe Encephalopathy from Drug overuse, intubated, sedated and paralysed. Also likely aspirated and with aspiration PNA vs pneumonitis. On cefepime, WBC down to normal Still on FiO2 of 40% and PEEP of 5 Still on Precedex, fentanyl, propofol, Versed for sedation or maxed out 3. Bipolar disorder: Likely noncompliant with psychiatric medications. Will resume once able to access p.o. or more awake 4. Right foot Lisfranc fracture: Pain control and ? splint 5. Anemia: Hemoglobin still on the low side, up and down but down to 7.3 today , Lovenox discontinued, SCDs to lower extremities. KUB/abdominal x-ray yesterday with no signs of obstruction, Reglan started, patient already on proton pump inhibitors. Currently NG tube on suction, will plan for a few hours to see if patient still having episodes of vomiting. Appreciate GI recommendation, will continue to monitor. Continue twice daily proton pump inhibitors. Blood transfusion as needed. Given lack of consenting next of kin, until we find a close relative, is being transfused emergently only and getting procedures on an emergency basis. Prophylaxis: SCDs for DVT prophylaxis, Protonix for GI prophylaxis Disposition: Still in ICU, intubated, sedated, trying to weaning off sedation but patient extremely agitated today, had to put him back on max doses of all 4 sedating agents, he remains off paralytics. Patient non-transferable at this time. Subjective 24 Hr Interval Summary Free Text/Dictation Patient significantly agitated already this morning on 4 sedating agents. Still intubated. Again CT last week did not show any acute injury, EEG showed encephalopathy severe while patient was on 4 sedating agents and a paralytic Exam/Review of Systems Vital Signs Vitals Vital Signs Date Time Temp Pulse Resp B/P Pulse Ox O2 Delivery O2 Flow Rate FiO2 01/08/17 09:30 76 25 143/81 95 01/08/17 09:00 Mechanical Ventilator 01/08/17 07:30 99.0 01/08/17 05:35 40 Intake and Output 01/07/17 01/07/17 01/08/17 15:00 23:00 07:00 Intake Total 1610.524 ml 1660.916 ml 2025.176 ml Output Total 1025 ml 1485 ml 1215 ml Balance 585.524 ml 175.916 ml 810.176 ml Exam Constitutional: other (Agitated) Respiratory: diminished breath sounds (At bases bilaterally), other (On mechanical ventilation) Cardiovascular: regular rate and rhythm Gastrointestinal: non-tender, soft Musculoskeletal: nl extremities to inspection Extremities: normal pulses, other (No edema, clubbing or cyanosis) Neurological: other (Agitated, not following commands) Results Result Diagram: 01/08/17 0400 01/08/17 0400 Results 24 hrs Laboratory Tests Test 01/08/17 04:00 White Blood Count 8.0 Red Blood Count 2.45 L Hemoglobin 7.3 L Hematocrit 22.3 L Mean Corpuscular Volume 91.0 Mean Corpuscular Hemoglobin 29.8 Mean Corpuscular Hemoglobin Concent 32.7 Red Cell Distribution Width 13.4 Platelet Count 199 Mean Platelet Volume 12.4 H Neutrophils % 72.5 Lymphocytes % 9.6 L Monocytes % 10.1 Eosinophils % 6.0 Basophils % 0.5 Nucleated Red Blood Cells % 0.0 Neutrophils # 5.8 Lymphocytes # 0.8 Monocytes # 0.8 Eosinophils # 0.5 Basophils # 0.0 Nucleated Red Blood Cells # 0.0 Sodium Level 146 H Potassium Level 3.3 L Chloride Level 111 H Carbon Dioxide Level 26 Anion Gap 12 Blood Urea Nitrogen 12 Creatinine 0.63 Glucose Level 96 Calcium Level 7.7 L Phosphorus Level 3.9 Magnesium Level 1.8 Total Bilirubin 0.2 Direct Bilirubin 0.00 Indirect Bilirubin 0.2 Aspartate Amino Transf (AST/SGOT) 30 Alanine Aminotransferase (ALT/SGPT) 54 Alkaline Phosphatase 231 H Total Protein 5.9 L Albumin 2.8 L Globulin 3.10 Albumin/Globulin Ratio 0.90 Medications Medications Current Medications Carbamazepine (Tegretol Xr) 400 mg HS PO Last administered on 01/07/17 20:55 ; Admin Dose 400 MG; Start 12/31/16 at 21:00 Divalproex Sodium (Depakote Er) 500 mg HS PO Last administered on 01/07/17 21 :12; Admin Dose 500 MG; Start 12/31/16 at 21:00 Gabapentin (Neurontin) 600 mg TID PO Last administered on 01/08/17 09:11; Admin Dose 600 MG; Start 12/31/16 at 09:00 Acetaminophen (Tylenol Tab) 650 mg Q4H PRN PO pain/fever; Start 12/31/16 at 01 :00 Hydralazine HCl (Apresoline) 25 mg Q6H PRN PO sbp>160; Start 12/31/16 at 01:00 Enalaprilat (Vasotec Iv) 1.25 mg Q6H PRN IV sbp>160; Start 12/31/16 at 01:00 Ondansetron HCl (Zofran Inj) 4 mg Q4H PRN IV nausea; Start 12/31/16 at 01:00 Hydralazine HCl 10 mg 10 mg Q4H PRN IV ELEVATED SYSTOLIC BP Last administered on 01/02/17 13:12; Admin Dose 10 MG; Start 12/31/16 at 05:30 Propofol 100 ml @ 3.205 mls/ hr TITRATE IV Last administered on 01/08/17 10: 05; Admin Dose 32.046 MLS/HR; Start 12/31/16 at 05:30 Fentanyl 100 ml @ 2.5 mls/hr TITRATE IV Last administered on 01/08/17 04:15 ; Admin Dose 10 MLS/HR; Start 12/31/16 at 16:30 Midazolam HCl 50 ml @ 1 mls/hr TITRATE IV Last administered on 01/08/17 07:33 ; Admin Dose 5 MLS/HR; Start 12/31/16 at 16:30 Cefepime HCl 50 ml @ 100 mls/hr Q12 IVPB Last administered on 01/08/17 09:12 ; Admin Dose 100 MLS/HR; Start 12/31/16 at 20:00 Vecuronium [place]/Dextrose (Vecuronium [place]/D5W) 100 ml @ 6.03 mls/hr TITRATE IV Last administered on 01/03/17 04:07; Admin Dose 6.03 MLS/HR; Start 01/01/17 at 06:00 Labetalol HCl (Labetalol) 10 mg Q4H PRN IV SBP GREATER THAN 160 Last administered on 01/02/17 14:09; Admin Dose 10 MG; Start 01/01/17 at 12:00 IV Flush 10 ml 10 ml PRN PRN IV IV PROTOCOL; Start 01/02/17 at 17:00 Sodium Chloride (NS) 1,000 ml @ 125 mls/hr Q8H IV Last administered on 05:27; Admin Dose 125 MLS/HR; Start 01/03/17 at 10:30 Lorazepam 2 mg 2 mg Q2H PRN IV PRN Agitation. Last administered on 01/07/17 22:16; Admin Dose 2 MG; Start 01/04/17 at 09:00 Vancomycin HCl/ Sodium Chloride (Vancocin/NS) 500 ml @ 125 mls/hr Q8H IVPB Last administered on 01/08/17 10:07; Admin Dose 125 MLS/HR; Start 01/06/17 at 10:00 Pantoprazole 40 mg 40 mg BID@06,18 IV Last administered on 01/07/17 20:56; Admin Dose 40 MG; Start 01/06/17 at 09:30 Dexmedetomidine HCl/Sodium Chloride (Precedex/NS) 100 ml @ 5.89 mls/hr TITRATE IV Last administered on 01/08/17 08:30; Admin Dose 41.26 MLS/HR; Start 01/06 at 14:30 Metoclopramide HCl (Reglan) 5 mg Q6 IV Last administered on 01/08/17 05:27; Admin Dose 5 MG; Start 01/07/17 at 18:00 TRENT NEWMAN Jan 08, 2017 11:01
[2017-01-08] MEDS ORDERED: POTASSIUM CHLORIDE 250 ML IVPB ONE (13:00)
--- NOTE | 2017-01-08 14:16 | CONS ---
Date/Time of Note Date/Time of Note DATE: 01/08/17 TIME: 14:11 Assessment/Plan Assessment/Plan Chief Complaint/Hosp Course Assessment: Anemia/stable Severe encephalopathy: likely secondary to drug abuse Acute Respiratory failure: Intubated and sedated Plan: No active GI bleed Will proceed with EGD only if warranted Continue to monitor h/h Continue PPI therapy Continue all supportive care Problems: Consultation Date/Type/Reason Admit Date/Time Dec 31, 2016 at 00:30 Initial Consult Date 01/06/17 Type of Consultation: GI 24 HR Interval Summary Subjective hx not possible: pt non-verbal, pt critical status Constitutional: disoriented Exam/Review of Systems Vital Signs Vitals Vital Signs Date Time Temp Pulse Resp B/P Pulse Ox O2 Delivery O2 Flow Rate FiO2 01/08/17 13:30 62 23 137/74 100 01/08/17 13:00 Mechanical Ventilator 01/08/17 12:00 99.2 01/08/17 08:00 40 Intake and Output 01/07/17 01/07/17 01/08/17 15:00 23:00 07:00 Intake Total 1610.524 ml 1660.916 ml 2025.176 ml Output Total 1025 ml 1485 ml 1215 ml Balance 585.524 ml 175.916 ml 810.176 ml Exam Head: atraumatic, normocephalic Eyes: EOMI, nl conjunctiva, nl lids ENMT: nl external ears & nose, nl lips & teeth, nl nasal mucosa & septum Neck: non-tender, supple Respiratory: clear to auscultation, normal air movement Cardiovascular: nl pulses, regular rate and rhythm Gastrointestinal: bowel sounds, non-tender, soft Results Result Diagram: 01/08/170 01/08/17 0400 Results 24 hrs Laboratory Tests Test 01/08/17 04:00 White Blood Count 8.0 Red Blood Count 2.45 L Hemoglobin 7.3 L Hematocrit 22.3 L Mean Corpuscular Volume 91.0 Mean Corpuscular Hemoglobin 29.8 Mean Corpuscular Hemoglobin Concent 32.7 Red Cell Distribution Width 13.4 Platelet Count 199 Mean Platelet Volume 12.4 H Neutrophils % 72.5 Lymphocytes % 9.6 L Monocytes % 10.1 Eosinophils % 6.0 Basophils % 0.5 Nucleated Red Blood Cells % 0.0 Neutrophils # 5.8 Lymphocytes # 0.8 Monocytes # 0.8 Eosinophils # 0.5 Basophils # 0.0 Nucleated Red Blood Cells # 0.0 Sodium Level 146 H Potassium Level 3.3 L Chloride Level 111 H Carbon Dioxide Level 26 Anion Gap 12 Blood Urea Nitrogen 12 Creatinine 0.63 Glucose Level 96 Calcium Level 7.7 L Phosphorus Level 3.9 Magnesium Level 1.8 Total Bilirubin 0.2 Direct Bilirubin 0.00 Indirect Bilirubin 0.2 Aspartate Amino Transf (AST/SGOT) 30 Alanine Aminotransferase (ALT/SGPT) 54 Alkaline Phosphatase 231 H Total Protein 5.9 L Albumin 2.8 L Globulin 3.10 Albumin/Globulin Ratio 0.90 Medications Medications Current Medications Carbamazepine (Tegretol Xr) 400 mg HS PO Last administered on 01/07/17 20:55 ; Admin Dose 400 MG; Start 12/31/16 at 21:00 Divalproex Sodium (Depakote Er) 500 mg HS PO Last administered on 01/07/17 21 :12; Admin Dose 500 MG; Start 12/31/16 at 21:00 Gabapentin (Neurontin) 600 mg TID PO Last administered on 01/08/17 12:01; Admin Dose 600 MG; Start 12/31/16 at 09:00 Acetaminophen (Tylenol Tab) 650 mg Q4H PRN PO pain/fever; Start 12/31/16 at 01 :00 Hydralazine HCl (Apresoline) 25 mg Q6H PRN PO sbp>160; Start 12/31/16 at 01:00 Enalaprilat (Vasotec Iv) 1.25 mg Q6H PRN IV sbp>160; Start 12/31/16 at 01:00 Ondansetron HCl (Zofran Inj) 4 mg Q4H PRN IV nausea; Start 12/31/16 at 01:00 Hydralazine HCl 10 mg 10 mg Q4H PRN IV ELEVATED SYSTOLIC BP Last administered on 01/02/17 13:12; Admin Dose 10 MG; Start 12/31/16 at 05:30 Propofol 100 ml @ 3.205 mls/ hr TITRATE IV Last administered on 01/08/17 13: 31; Admin Dose 32.046 MLS/HR; Start 12/31/16 at 05:30 Fentanyl 100 ml @ 2.5 mls/hr TITRATE IV Last administered on 01/08/17 04:15 ; Admin Dose 10 MLS/HR; Start 12/31/16 at 16:30 Midazolam HCl 50 ml @ 1 mls/hr TITRATE IV Last administered on 01/08/17 07:33 ; Admin Dose 5 MLS/HR; Start 12/31/16 at 16:30 Cefepime HCl 50 ml @ 100 mls/hr Q12 IVPB Last administered on 01/08/17 09:12 ; Admin Dose 100 MLS/HR; Start 12/31/16 at 20:00 Vecuronium [place]/Dextrose (Vecuronium [place]/D5W) 100 ml @ 6.03 mls/hr TITRATE IV Last administered on 01/03/17 04:07; Admin Dose 6.03 MLS/HR; Start 01/01/17 at 06:00 Labetalol HCl (Labetalol) 10 mg Q4H PRN IV SBP GREATER THAN 160 Last administered on 01/02/17 14:09; Admin Dose 10 MG; Start 01/01/17 at 12:00 IV Flush 10 ml 10 ml PRN PRN IV IV PROTOCOL; Start 01/02/17 at 17:00 Sodium Chloride (NS) 1,000 ml @ 125 mls/hr Q8H IV Last administered on 05:27; Admin Dose 125 MLS/HR; Start 01/03/17 at 10:30 Lorazepam 2 mg 2 mg Q2H PRN IV PRN Agitation. Last administered on 01/07/17 22:16; Admin Dose 2 MG; Start 01/04/17 at 09:00 Vancomycin HCl/ Sodium Chloride (Vancocin/NS) 500 ml @ 125 mls/hr Q8H IVPB Last administered on 01/08/17 10:07; Admin Dose 125 MLS/HR; Start 01/06/17 at 10:00 Pantoprazole 40 mg 40 mg BID@06,18 IV Last administered on 01/07/17 20:56; Admin Dose 40 MG; Start 01/06/17 at 09:30 Dexmedetomidine HCl/Sodium Chloride (Precedex/NS) 100 ml @ 5.89 mls/hr TITRATE IV Last administered on 01/08/17 11:27; Admin Dose 41.26 MLS/HR; Start 01/06 at 14:30 Metoclopramide HCl 5 mg 5 mg Q6 IV Last administered on 01/08/17 12:01; Admin Dose 5 MG; Start 01/07/17 at 18:00 Potassium Chloride (KCl 40 MEQ/250 ML NS) 250 ml @ 62.5 mls/hr ONCE ONCE IVPB Last administered on 01/08/17 13:31; Admin Dose 62.5 MLS/HR; Start at 13:00; Stop 01/08/17 at 16:59 SHANNON JACQUES MD Jan 08, 2017 14:16
[2017-01-08] MEDS: ACETAMINOPHEN 325 MG TAB PO PRN (16:50)
[2017-01-08] MEDS: PANTOPRAZOLE 40 MG INJ IV SCH (17:21)
[2017-01-08 17:37] LABS: ADD UMIC NO; UR ASCORBIC ACID 20 mg/dL (NEGATIVE); UR BACTERIA FEW /HPF (NONE SEEN); UR BILIRUBIN (Dip) NEGATIVE (NEGATIVE); UR BLOOD (Dip) NEGATIVE (NEGATIVE); UR CLARITY SLIGHTLY CLOUDY (CLEAR); UR COLOR YELLOW (YELLOW); UR GLUCOSE (Dip) NEGATIVE (NEGATIVE); UR KETONES (Dip) 2+ mg/dL (NEGATIVE); UR LEUKOCYTE ESTERASE (Dip) NEGATIVE Leu/ul (NEGATIVE); UR MUCUS FEW /HPF (NONE SEEN); UR NITRITE (Dip) NEGATIVE (NEGATIVE); UR RBC 35 /HPF (0-5); UR SPECIFIC GRAVITY (Dip) 1.018 (1.003-1.030); UR TOTAL PROTEIN (Dip) NEGATIVE (NEGATIVE); UR UROBILINOGEN (Dip) 1+ mg/dL (NEGATIVE)
[2017-01-08] MEDS: carBAMAZepine (XR) 200 MG TABSR PO SCH (20:18)
[2017-01-08] MEDS: DIVALPROEX (ER) 500 MG TAB PO SCH (20:18)
[2017-01-09] VITALS (54 sets, daily range): BP systolic 130–186; BP diastolic 73–100; PULSE 46–115; RESP 0–35
[2017-01-09] MEDS: DEXMEDETOMIDINE HCL IV SCH ×8 (00:10→21:31)
[2017-01-09] MEDS: SOD CHLORIDE 0.9% IV SCH ×8 (00:10→21:31)
[2017-01-09] MEDS: FENTAnyl (DRIP) 1000 mcg/100mL 100 ML IV SCH ×3 (00:11→18:32)
[2017-01-09] MEDS: VANCOMYCIN 1.75 GM in NS 500 ML IVPB SCH ×3 (01:31→17:48)
[2017-01-09] MEDS: PROPOFOL 100 ML IV SCH ×7 (02:22→22:18)
[2017-01-09] MEDS: MIDAZOLAM (DRIP) 50 mg/50 mL 50 ML IV SCH ×5 (02:23→23:50)
[2017-01-09] MEDS: SOD CHLORIDE 0.9% 1,000 ML IV SCH ×3 (02:23→17:48)
[2017-01-09] MEDS: PANTOPRAZOLE 40 MG INJ IV SCH ×2 (05:38→17:47)
[2017-01-09] MEDS: METOCLOPRAMIDE 10 MG INJ IV SCH ×4 (05:38→23:51)
[2017-01-09 06:39] LABS: BASOPHIL # 0.1 10^3/ul (0.0-0.1); BASOPHILS % 0.6 % (0.0-2.0); EOSINOPHILS # 0.5 10^3/ul (0.0-0.5); EOSINOPHILS % 5.9 % (0.0-7.0); HEMATOCRIT 22.5 % (42.0-52.0); HEMOGLOBIN 7.3 g/dl (14.0-18.0); LYMPHOCYTES # 0.9 10^3/ul (0.8-2.9); MEAN CORPUSCULAR HEMOGLOBIN 29.6 pg (29.0-33.0); MEAN CORPUSCULAR HGB CONC 32.4 g/dl (32.0-37.0); MEAN CORPUSCULAR VOLUME 91.1 fl (82.0-101.0); MEAN PLATELET VOLUME 12.3 fl (7.4-10.4); MONOCYTE # 0.7 10^3/ul (0.3-0.9); NEUTROPHIL # 5.8 10^3/ul (1.6-7.5); NEUTROPHILS % 72.1 % (39.0-77.0); PLATELET COUNT 208 10^3/UL (140-415); RED BLOOD COUNT 2.47 10^6/ul (4.70-6.10); RED CELL DISTRIBUTION WIDTH 13.4 % (11.5-14.5)
[2017-01-09 07:37] LABS: ALBUMIN 2.5 g/dl (3.3-4.9); ALBUMIN/GLOBULIN RATIO 0.86; BILIRUBIN,INDIRECT 0.2 mg/dl (0-1.1); BILIRUBIN,TOTAL 0.2 mg/dl (0.2-1.3); CALCIUM 7.8 mg/dl (8.4-10.2); CREATININE 0.56 mg/dl (0.61-1.24); POTASSIUM 3.6 mmol/L (3.5-5.1); TOTAL PROTEIN 5.4 g/dl (6.1-8.1)
[2017-01-09 07:38] LABS: MAGNESIUM 1.9 mg/dl (1.7-2.5); PHOSPHORUS 3.9 mg/dl (2.5-4.9)
[2017-01-09] MEDS: CEFEPIME 1GM/50 ML (PMX) 50 ML IVPB SCH ×2 (09:04→21:16)
[2017-01-09] MEDS: GABAPENTIN 300 MG CAP PO SCH ×3 (09:04→21:26)
--- NOTE | 2017-01-09 15:26 | CONS ---
Date/Time of Note Date/Time of Note DATE: 01/09/17 TIME: 15:23 Consult Date/Type/Reason Admit Date/Time Dec 31, 2016 at 00:30 Initial Consult Date 01/06/17 Type of Consultation: Pulm/CCM Subjective Remains on 3 sedative drips on vent. Objective Vital Signs Date Time Temp Pulse Resp B/P Pulse Ox O2 Delivery O2 Flow Rate FiO2 01/09/17 14:00 52 20 158/87 99 Mechanical Ventilator 01/09/17 13:58 30 01/09/17 12:00 98.9 Intake and Output 01/08/17 01/08/17 01/09/17 15:00 23:00 07:00 Intake Total 1880.217 ml 1268.04 ml 1129.52 ml Output Total 1280 ml 910 ml 710 ml Balance 600.217 ml 358.04 ml 419.52 ml Exam HEENT: Pupils equal, round, and reactive to light. CARDIAC: S1, S2, 1/6 systolic ejection murmur CHEST: Diminished air entry bilaterally. ABDOMEN: Mildly distended. Bowel sounds present no guarding or rebound EXTREMITIES: No cyanosis, clubbing edema +1 NEUROLOGIC: Moves all extremities Results/Medications Result Diagram: 01/09/17 0545 01/09/17 0545 Results 24 hrs Laboratory Tests Test 01/08/17 17:15 01/09/17 05:45 Urine Color YELLOW Urine Clarity SLIGHTLY CLOUDY A Urine pH 5.0 Urine Specific [place] 1.018 Urine Ketones 2+ H Urine Nitrite NEGATIVE Urine Bilirubin NEGATIVE Urine Urobilinogen 1+ H Urine Leukocyte Esterase NEGATIVE Urine Microscopic RBC 35 H Urine Microscopic WBC 3 Urine Bacteria FEW A Urine Mucus FEW A Urine Hemoglobin NEGATIVE Urine Glucose NEGATIVE Urine Total Protein NEGATIVE White Blood Count 8.0 Red Blood Count 2.47 L Hemoglobin 7.3 L Hematocrit 22.5 L Mean Corpuscular Volume 91.1 Mean Corpuscular Hemoglobin 29.6 Mean Corpuscular Hemoglobin Concent 32.4 Red Cell Distribution Width 13.4 Platelet Count 208 Mean Platelet Volume 12.3 H Neutrophils % 72.1 Lymphocytes % 11.0 L Monocytes % 9.0 Eosinophils % 5.9 Basophils % 0.6 Nucleated Red Blood Cells % 0.0 Neutrophils # 5.8 Lymphocytes # 0.9 Monocytes # 0.7 Eosinophils # 0.5 Basophils # 0.1 Nucleated Red Blood Cells # 0.0 Sodium Level 144 Potassium Level 3.6 Chloride Level 111 H Carbon Dioxide Level 25 Anion Gap 12 Blood Urea Nitrogen 9 Creatinine 0.56 L Glucose Level 93 Calcium Level 7.8 L Phosphorus Level 3.9 Magnesium Level 1.9 Total Bilirubin 0.2 Direct Bilirubin 0.00 Indirect Bilirubin 0.2 Aspartate Amino Transf (AST/SGOT) 39 Alanine Aminotransferase (ALT/SGPT) 56 Alkaline Phosphatase 219 H Total Protein 5.4 L Albumin 2.5 L Globulin 2.90 Albumin/Globulin Ratio 0.86 Medications Current Medications Divalproex Sodium (Depakote Er) 500 mg HS PO Last administered on 01/08/17 20 :18; Admin Dose 500 MG; Start 12/31/16 at 21:00 Gabapentin (Neurontin) 600 mg TID PO Last administered on 01/09/17 13:15; Admin Dose 600 MG; Start 12/31/16 at 09:00 Acetaminophen (Tylenol Tab) 650 mg Q4H PRN PO pain/fever Last administered on 01/08/17 16:50; Admin Dose 650 MG; Start 12/31/16 at 01:00 Hydralazine HCl (Apresoline) 25 mg Q6H PRN PO sbp>160; Start 12/31/16 at 01:00 Enalaprilat (Vasotec Iv) 1.25 mg Q6H PRN IV sbp>160; Start 12/31/16 at 01:00 Ondansetron HCl (Zofran Inj) 4 mg Q4H PRN IV nausea; Start 12/31/16 at 01:00 Hydralazine HCl 10 mg 10 mg Q4H PRN IV ELEVATED SYSTOLIC BP Last administered on 01/02/17 13:12; Admin Dose 10 MG; Start 12/31/16 at 05:30 Propofol 100 ml @ 3.205 mls/ hr TITRATE IV Last administered on 01/09/17 13: 15; Admin Dose 32.046 MLS/HR; Start 12/31/16 at 05:30 Fentanyl 100 ml @ 2.5 mls/hr TITRATE IV Last administered on 01/09/17 09:43 ; Admin Dose 10 MLS/HR; Start 12/31/16 at 16:30 Midazolam HCl 50 ml @ 1 mls/hr TITRATE IV Last administered on 01/09/17 13:49 ; Admin Dose 10 MLS/HR; Start 12/31/16 at 16:30 Cefepime HCl 50 ml @ 100 mls/hr Q12 IVPB Last administered on 01/09/17 09:04 ; Admin Dose 100 MLS/HR; Start 12/31/16 at 20:00 Vecuronium [place]/Dextrose (Vecuronium [place]/D5W) 100 ml @ 6.03 mls/hr TITRATE IV Last administered on 01/03/17 04:07; Admin Dose 6.03 MLS/HR; Start 01/01/17 at 06:00 Labetalol HCl (Labetalol) 10 mg Q4H PRN IV SBP GREATER THAN 160 Last administered on 01/02/17 14:09; Admin Dose 10 MG; Start 01/01/17 at 12:00 IV Flush 10 ml 10 ml PRN PRN IV IV PROTOCOL; Start 01/02/17 at 17:00 Sodium Chloride (NS) 1,000 ml @ 125 mls/hr Q8H IV Last administered on 09:42; Admin Dose 125 MLS/HR; Start 01/03/17 at 10:30 Lorazepam 2 mg 2 mg Q2H PRN IV PRN Agitation. Last administered on 01/07/17 22:16; Admin Dose 2 MG; Start 01/04/17 at 09:00 Vancomycin HCl/ Sodium Chloride (Vancocin/NS) 500 ml @ 125 mls/hr Q8H IVPB Last administered on 01/09/17 09:04; Admin Dose 125 MLS/HR; Start 01/06/17 at 10:00 Pantoprazole 40 mg 40 mg BID@06,18 IV Last administered on 01/09/17 05:38; Admin Dose 40 MG; Start 01/06/17 at 09:30 Dexmedetomidine HCl/Sodium Chloride (Precedex/NS) 100 ml @ 5.89 mls/hr TITRATE IV Last administered on 01/09/17 13:49; Admin Dose 41.26 MLS/HR; Start 01/06 at 14:30 Metoclopramide HCl (Reglan) 5 mg Q6 IV Last administered on 01/09/17 13:16; Admin Dose 5 MG; Start 01/07/17 at 18:00 Carbamazepine (Tegretol Xr) 400 mg QHS PO Last administered on 01/08/17t 20:18 ; Admin Dose 400 MG; Start 01/08/17 at 21:00 Assessment/Plan Additional Assessment/Plan IMP: 1. Hypoxic respiratory failure/Vent Dependence 2. Possible aspiration pneumonia 3. History of drug overdose 4. History of psychiatric disease 5. Likely ALEX 6. Anemia RECS: 1. Decrease sedatives 2. CPAP trial in am 3. Obtain serum triglycerides given use of propofol 4. TF/Free H20 5. Vent--reduce rate 16; VT 500 35 min cc time JUANA SANCHEZ MD Jan 09, 2017 15:26
--- NOTE | 2017-01-09 16:52 | CONS ---
Date/Time of Note Date/Time of Note DATE: 01/09/17 TIME: 16:51 Assessment/Plan Assessment/Plan Chief Complaint/Hosp Course Assessment: Anemia/stable Severe encephalopathy: likely secondary to drug abuse Acute Respiratory failure: Intubated and sedated Plan: No active GI bleed per discussion with nurse Will proceed with EGD only if warranted Continue to monitor h/h Continue PPI therapy Continue all supportive care Problems: Consultation Date/Type/Reason Admit Date/Time Dec 31, 2016 at 00:30 Initial Consult Date 01/06/17 Type of Consultation: Pulm/CCM 24 HR Interval Summary Subjective hx not possible: pt non-verbal Constitutional: disoriented Exam/Review of Systems Vital Signs Vitals Vital Signs Date Time Temp Pulse Resp B/P Pulse Ox O2 Delivery O2 Flow Rate FiO2 01/09/17 16:07 30 01/09/17 16:00 98.4 56 19 162/94 100 Mechanical Ventilator Intake and Output 01/08/17 01/08/17 01/09/17 15:00 23:00 07:00 Intake Total 1880.217 ml 1268.04 ml 1129.52 ml Output Total 1280 ml 910 ml 710 ml Balance 600.217 ml 358.04 ml 419.52 ml Exam Constitutional: non-verbal Psych: confusion Head: atraumatic, normocephalic ENMT: nl external ears & nose, nl lips & teeth, nl nasal mucosa & septum Neck: non-tender, supple Respiratory: clear to auscultation, normal air movement Cardiovascular: nl pulses, regular rate and rhythm Gastrointestinal: bowel sounds, non-tender, soft Results Result Diagram: 01/09/17 0545 01/09/17 0545 Results 24 hrs Laboratory Tests Test 01/08/17 17:15 01/09/17 05:45 Urine Color YELLOW Urine Clarity SLIGHTLY CLOUDY A Urine pH 5.0 Urine Specific [place] 1.018 Urine Ketones 2+ H Urine Nitrite NEGATIVE Urine Bilirubin NEGATIVE Urine Urobilinogen 1+ H Urine Leukocyte Esterase NEGATIVE Urine Microscopic RBC 35 H Urine Microscopic WBC 3 Urine Bacteria FEW A Urine Mucus FEW A Urine Hemoglobin NEGATIVE Urine Glucose NEGATIVE Urine Total Protein NEGATIVE White Blood Count 8.0 Red Blood Count 2.47 L Hemoglobin 7.3 L Hematocrit 22.5 L Mean Corpuscular Volume 91.1 Mean Corpuscular Hemoglobin 29.6 Mean Corpuscular Hemoglobin Concent 32.4 Red Cell Distribution Width 13.4 Platelet Count 208 Mean Platelet Volume 12.3 H Neutrophils % 72.1 Lymphocytes % 11.0 L Monocytes % 9.0 Eosinophils % 5.9 Basophils % 0.6 Nucleated Red Blood Cells % 0.0 Neutrophils # 5.8 Lymphocytes # 0.9 Monocytes # 0.7 Eosinophils # 0.5 Basophils # 0.1 Nucleated Red Blood Cells # 0.0 Sodium Level 144 Potassium Level 3.6 Chloride Level 111 H Carbon Dioxide Level 25 Anion Gap 12 Blood Urea Nitrogen 9 Creatinine 0.56 L Glucose Level 93 Calcium Level 7.8 L Phosphorus Level 3.9 Magnesium Level 1.9 Total Bilirubin 0.2 Direct Bilirubin 0.00 Indirect Bilirubin 0.2 Aspartate Amino Transf (AST/SGOT) 39 Alanine Aminotransferase (ALT/SGPT) 56 Alkaline Phosphatase 219 H Total Protein 5.4 L Albumin 2.5 L Globulin 2.90 Albumin/Globulin Ratio 0.86 Medications Medications Current Medications Divalproex Sodium (Depakote Er) 500 mg HS PO Last administered on 01/08/17 20 :18; Admin Dose 500 MG; Start 12/31/16 at 21:00 Gabapentin (Neurontin) 600 mg TID PO Last administered on 01/09/17 13:15; Admin Dose 600 MG; Start 12/31/16 at 09:00 Acetaminophen (Tylenol Tab) 650 mg Q4H PRN PO pain/fever Last administered on 01/08/17 16:50; Admin Dose 650 MG; Start 12/31/16 at 01:00 Hydralazine HCl (Apresoline) 25 mg Q6H PRN PO sbp>160; Start 12/31/16 at 01:00 Enalaprilat (Vasotec Iv) 1.25 mg Q6H PRN IV sbp>160; Start 12/31/16 at 01:00 Ondansetron HCl (Zofran Inj) 4 mg Q4H PRN IV nausea; Start 12/31/16 at 01:00 Hydralazine HCl 10 mg 10 mg Q4H PRN IV ELEVATED SYSTOLIC BP Last administered on 01/02/17 13:12; Admin Dose 10 MG; Start 12/31/16 at 05:30 Propofol 100 ml @ 3.205 mls/ hr TITRATE IV Last administered on 01/09/17 16: 11; Admin Dose 32.046 MLS/HR; Start 12/31/16 at 05:30 Fentanyl 100 ml @ 2.5 mls/hr TITRATE IV Last administered on 01/09/17 09:43 ; Admin Dose 10 MLS/HR; Start 12/31/16 at 16:30 Midazolam HCl 50 ml @ 1 mls/hr TITRATE IV Last administered on 01/09/17 13:49 ; Admin Dose 10 MLS/HR; Start 12/31/16 at 16:30 Cefepime HCl 50 ml @ 100 mls/hr Q12 IVPB Last administered on 01/09/17 09:04 ; Admin Dose 100 MLS/HR; Start 12/31/16 at 20:00 Vecuronium [place]/Dextrose (Vecuronium [place]/D5W) 100 ml @ 6.03 mls/hr TITRATE IV Last administered on 01/03/17 04:07; Admin Dose 6.03 MLS/HR; Start 01/01/17 at 06:00 Labetalol HCl (Labetalol) 10 mg Q4H PRN IV SBP GREATER THAN 160 Last administered on 01/02/17 14:09; Admin Dose 10 MG; Start 01/01/17 at 12:00 IV Flush 10 ml 10 ml PRN PRN IV IV PROTOCOL; Start 01/02/17 at 17:00 Sodium Chloride (NS) 1,000 ml @ 125 mls/hr Q8H IV Last administered on 09:42; Admin Dose 125 MLS/HR; Start 01/03/17 at 10:30 Lorazepam 2 mg 2 mg Q2H PRN IV PRN Agitation. Last administered on 01/07/17 22:16; Admin Dose 2 MG; Start 01/04/17 at 09:00 Vancomycin HCl/ Sodium Chloride (Vancocin/NS) 500 ml @ 125 mls/hr Q8H IVPB Last administered on 01/09/17 09:04; Admin Dose 125 MLS/HR; Start 01/06/17 at 10:00 Pantoprazole 40 mg 40 mg BID@06,18 IV Last administered on 01/09/17 05:38; Admin Dose 40 MG; Start 01/06/17 at 09:30 Dexmedetomidine HCl/Sodium Chloride (Precedex/NS) 100 ml @ 5.89 mls/hr TITRATE IV Last administered on 01/09/17 16:11; Admin Dose 29.47 MLS/HR; Start 01/06 at 14:30 Metoclopramide HCl (Reglan) 5 mg Q6 IV Last administered on 01/09/17 13:16; Admin Dose 5 MG; Start 01/07/17 at 18:00 Carbamazepine (Tegretol Xr) 400 mg QHS PO Last administered on 01/08/17 20:18 ; Admin Dose 400 MG; Start 01/08/17 at 21:00 SHANNON JACQUES MD Jan 09, 2017 16:52
--- NOTE | 2017-01-09 17:18 | PN ---
Date/Time of Note Date/Time of Note DATE: 01/09/17 TIME: 17:17 Assessment/Plan VTE Prophylaxis VTE Prophylaxis Intervention: SCD's Lines/Catheters IV Catheter Type (from Nrs): PICC Line Central line still needed: Yes (critically ill) Urinary Cath still in place: Yes Reason Cath still needed: other (indicate) (critically ill) Assessment/Plan Assessment/Plan [facility] 1. 46 yo man with severe encephalopathy thought secondary to drug abuse, with extreme agitation when his sedation is lifted. Currently stable on ventilator AC 16. History of bipolar disorder, with limited medication compliance. CT brain, repeated once, has been normal. EEG showing encephalopathy on sedation and paralytics. 2. Acute respiratory failure. Intubated, sedated and paralysed. Possible aspiration pneumonia. Blood and urine cultures no growth. No fever, and no leukocytosis. * Continue cefepime and vancomycin. 3. Right foot Lisfranc fracture 4. Anemia, with Hct 22.5% today. No signs of active bleeding. SCDs only to lower extremities for DVT prophylaxis. KUB/abdominal x-ray two days ago showed no signs of obstruction. *Continue twice daily proton pump inhibitors. * Blood transfusion held for now 5. Prophylaxis: SCDs for DVT prophylaxis, Protonix for GI prophylaxis 6. Disposition: Still in ICU, intubated, sedated, trying to weaning off sedation but patient extremely agitated today when sedation suspended. Fran Osborne MD PhD [phone] Subjective 24 Hr Interval Summary Free Text/Dictation Non-verbal. No visitors. Chart reviewed. Exam/Review of Systems Vital Signs Vitals Vital Signs Date Time Temp Pulse Resp B/P Pulse Ox O2 Delivery O2 Flow Rate FiO2 01/09/17 16:07 30 01/09/17 16:00 98.4 56 19 162/94 100 Mechanical Ventilator Intake and Output 01/08/17 01/08/17 01/09/17 15:00 23:00 07:00 Intake Total 1880.217 ml 1268.04 ml 1129.52 ml Output Total 1280 ml 910 ml 710 ml Balance 600.217 ml 358.04 ml 419.52 ml Exam General: Moving in bed, ventilated, not alarming, preserved oxygenation. HEENT: Supple neck, reactive pupils, no scleral icterus or conjunctivitis. Resp: Clear lungs bilaterally in anterior champion CVS: Regular rhythm, rate controlled, no murmur, good perfusion, mild pre- tibial edema Abd: Large, no tympany, bowel sounds positive, no hepatomegaly Ext: Bruised right foot Neuro: Sedated Skin: No rash Results Result Diagram: 01/09/17 0545 01/09/17 0545 Results 24 hrs Laboratory Tests Test 01/09/17 05:45 White Blood Count 8.0 Red Blood Count 2.47 L Hemoglobin 7.3 L Hematocrit 22.5 L Mean Corpuscular Volume 91.1 Mean Corpuscular Hemoglobin 29.6 Mean Corpuscular Hemoglobin Concent 32.4 Red Cell Distribution Width 13.4 Platelet Count 208 Mean Platelet Volume 12.3 H Neutrophils % 72.1 Lymphocytes % 11.0 L Monocytes % 9.0 Eosinophils % 5.9 Basophils % 0.6 Nucleated Red Blood Cells % 0.0 Neutrophils # 5.8 Lymphocytes # 0.9 Monocytes # 0.7 Eosinophils # 0.5 Basophils # 0.1 Nucleated Red Blood Cells # 0.0 Sodium Level 144 Potassium Level 3.6 Chloride Level 111 H Carbon Dioxide Level 25 Anion Gap 12 Blood Urea Nitrogen 9 Creatinine 0.56 L Glucose Level 93 Calcium Level 7.8 L Phosphorus Level 3.9 Magnesium Level 1.9 Total Bilirubin 0.2 Direct Bilirubin 0.00 Indirect Bilirubin 0.2 Aspartate Amino Transf (AST/SGOT) 39 Alanine Aminotransferase (ALT/SGPT) 56 Alkaline Phosphatase 219 H Total Protein 5.4 L Albumin 2.5 L Globulin 2.90 Albumin/Globulin Ratio 0.86 Medications Medications Current Medications Divalproex Sodium (Depakote Er) 500 mg HS PO Last administered on 01/08/17 20 :18; Admin Dose 500 MG; Start 12/31/16 at 21:00 Gabapentin (Neurontin) 600 mg TID PO Last administered on 01/09/17 13:15; Admin Dose 600 MG; Start 12/31/16 at 09:00 Acetaminophen (Tylenol Tab) 650 mg Q4H PRN PO pain/fever Last administered on 01/08/17 16:50; Admin Dose 650 MG; Start 12/31/16 at 01:00 Hydralazine HCl (Apresoline) 25 mg Q6H PRN PO sbp>160; Start 12/31/16 at 01:00 Enalaprilat (Vasotec Iv) 1.25 mg Q6H PRN IV sbp>160; Start 12/31/16 at 01:00 Ondansetron HCl (Zofran Inj) 4 mg Q4H PRN IV nausea; Start 12/31/16 at 01:00 Hydralazine HCl 10 mg 10 mg Q4H PRN IV ELEVATED SYSTOLIC BP Last administered on 01/02/17 13:12; Admin Dose 10 MG; Start 12/31/16 at 05:30 Propofol 100 ml @ 3.205 mls/ hr TITRATE IV Last administered on 01/09/17 16: 11; Admin Dose 32.046 MLS/HR; Start 12/31/16 at 05:30 Fentanyl 100 ml @ 2.5 mls/hr TITRATE IV Last administered on 01/09/17 09:43 ; Admin Dose 10 MLS/HR; Start 12/31/16 at 16:30 Midazolam HCl 50 ml @ 1 mls/hr TITRATE IV Last administered on 01/09/17 13:49 ; Admin Dose 10 MLS/HR; Start 12/31/16 at 16:30 Cefepime HCl 50 ml @ 100 mls/hr Q12 IVPB Last administered on 01/09/17 09:04 ; Admin Dose 100 MLS/HR; Start 12/31/16 at 20:00 Vecuronium [place]/Dextrose (Vecuronium [place]/D5W) 100 ml @ 6.03 mls/hr TITRATE IV Last administered on 01/03/17 04:07; Admin Dose 6.03 MLS/HR; Start 01/01/17 at 06:00 Labetalol HCl (Labetalol) 10 mg Q4H PRN IV SBP GREATER THAN 160 Last administered on 01/02/17 14:09; Admin Dose 10 MG; Start 01/01/17 at 12:00 IV Flush 10 ml 10 ml PRN PRN IV IV PROTOCOL; Start 01/02/17 at 17:00 Sodium Chloride (NS) 1,000 ml @ 125 mls/hr Q8H IV Last administered on 09:42; Admin Dose 125 MLS/HR; Start 01/03/17 at 10:30 Lorazepam 2 mg 2 mg Q2H PRN IV PRN Agitation. Last administered on 01/07/17 22:16; Admin Dose 2 MG; Start 01/04/17 at 09:00 Vancomycin HCl/ Sodium Chloride (Vancocin/NS) 500 ml @ 125 mls/hr Q8H IVPB Last administered on 01/09/17 09:04; Admin Dose 125 MLS/HR; Start 01/06/17 at 10:00 Pantoprazole 40 mg 40 mg BID@06,18 IV Last administered on 01/09/17 05:38; Admin Dose 40 MG; Start 01/06/17 at 09:30 Dexmedetomidine HCl/Sodium Chloride (Precedex/NS) 100 ml @ 5.89 mls/hr TITRATE IV Last administered on 01/09/17 16:11; Admin Dose 29.47 MLS/HR; Start 01/06 at 14:30 Metoclopramide HCl (Reglan) 5 mg Q6 IV Last administered on 01/09/17 13:16; Admin Dose 5 MG; Start 01/07/17 at 18:00 Carbamazepine (Tegretol Xr) 400 mg QHS PO Last administered on 01/08/17 20:18 ; Admin Dose 400 MG; Start 01/08/17 at 21:00 Miscellaneous Information (*Rx Drug Level Order Reminder*) VANCO TROUGH @ 0, 900 ON ... ONCE ONCE XX ; Start 01/10/17 at 09:00; Stop 01/10/17 at 09:01 YOGESH OSBORNE M.D. Jan 09, 2017 17:18
[2017-01-09] MEDS: LORAZEPAM 2 MG INJ IV PRN (19:36)
[2017-01-09] MEDS: carBAMAZepine (XR) 200 MG TABSR PO SCH (21:26)
[2017-01-09] MEDS: DIVALPROEX (ER) 500 MG TAB PO SCH (21:26)
[2017-01-10] VITALS (71 sets, daily range): BP systolic 105–188; BP diastolic 64–107; PULSE 66–105; RESP 14–38
[2017-01-10] MEDS: LABETALOL HCL 20MG INJ IV PRN ×2 (00:22→22:33)
[2017-01-10] MEDS: LORAZEPAM 2 MG INJ IV PRN ×9 (00:22→23:29)
[2017-01-10] MEDS: PROPOFOL 100 ML IV SCH ×11 (00:56→23:29)
[2017-01-10] MEDS: DEXMEDETOMIDINE HCL IV SCH ×2 (01:41→05:22)
[2017-01-10] MEDS: SOD CHLORIDE 0.9% IV SCH ×2 (01:41→05:22)
[2017-01-10] MEDS: VANCOMYCIN 1.75 GM in NS 500 ML IVPB SCH ×3 (02:22→17:40)
[2017-01-10] MEDS: SOD CHLORIDE 0.9% 1,000 ML IV SCH ×2 (02:22→10:13)
[2017-01-10] MEDS: FENTAnyl (DRIP) 1000 mcg/100mL 100 ML IV SCH ×3 (04:09→16:41)
[2017-01-10] MEDS: MIDAZOLAM (DRIP) 50 mg/50 mL 50 ML IV SCH ×5 (04:09→23:48)
[2017-01-10 05:24] LABS: BASOPHIL # 0.1 10^3/ul (0.0-0.1); BASOPHILS % 0.6 % (0.0-2.0); EOSINOPHILS # 0.1 10^3/ul (0.0-0.5); EOSINOPHILS % 0.5 % (0.0-7.0); HEMATOCRIT 25.2 % (42.0-52.0); HEMOGLOBIN 8.4 g/dl (14.0-18.0); LYMPHOCYTES # 0.8 10^3/ul (0.8-2.9); LYMPHOCYTES % 5.1 % (15.0-51.0); MEAN CORPUSCULAR HEMOGLOBIN 30.1 pg (29.0-33.0); MEAN CORPUSCULAR HGB CONC 33.3 g/dl (32.0-37.0); MEAN CORPUSCULAR VOLUME 90.3 fl (82.0-101.0); MEAN PLATELET VOLUME 12.6 fl (7.4-10.4); MONOCYTE # 1.2 10^3/ul (0.3-0.9); MONOCYTES % 7.3 % (0.0-11.0); NEUTROPHIL # 13.1 10^3/ul (1.6-7.5); NEUTROPHILS % 82.2 % (39.0-77.0); NUCLEATED RED BLOOD CELLS% 0.3 /100WBC (0.0-0.0); PLATELET COUNT 290 10^3/UL (140-415); RED BLOOD COUNT 2.79 10^6/ul (4.70-6.10); RED CELL DISTRIBUTION WIDTH 13.4 % (11.5-14.5); WHITE BLOOD COUNT 15.9 10^3/ul (4.8-10.8)
[2017-01-10] MEDS: METOCLOPRAMIDE 10 MG INJ IV SCH ×4 (05:37→23:29)
[2017-01-10] MEDS: PANTOPRAZOLE 40 MG INJ IV SCH ×2 (05:37→17:40)
[2017-01-10 05:58] LABS: ALBUMIN 2.8 g/dl (3.3-4.9); ALBUMIN/GLOBULIN RATIO 0.96; BILIRUBIN,DIRECT 0.1 mg/dl (0.00-0.20); BILIRUBIN,INDIRECT 0.2 mg/dl (0-1.1); BILIRUBIN,TOTAL 0.3 mg/dl (0.2-1.3); CREATININE 0.5 mg/dl (0.61-1.24); MAGNESIUM 1.6 mg/dl (1.7-2.5); PHOSPHORUS 4.2 mg/dl (2.5-4.9); POTASSIUM 3.3 mmol/L (3.5-5.1); TOTAL PROTEIN 5.7 g/dl (6.1-8.1)
--- NOTE | 2017-01-10 07:08 | RADRPT ---
PROCEDURE: XR Chest. CLINICAL INDICATION: Shortness of breath. TECHNIQUE: Single frontal view. COMPARISON: 01/06/2017. FINDINGS: The endotracheal tube, nasogastric tube, right arm PICC line remain in satisfactory position. There is bilateral pulmonary air space disease consistent with pulmonary edema or bilateral pneumonia. The heart size is normal. There is no pleural effusion. There is no pneumothorax. IMPRESSION: 1. No change from 01/06/2017. RPTAT: QQ .Jerry Arellano MD, MD Date Time Electronically viewed and signed by .Jerry Arellano MD, MD on 01/10/2017 07:08 .R/
[2017-01-10] MEDS: CEFEPIME 1GM/50 ML (PMX) 50 ML IVPB SCH ×2 (08:12→20:52)
[2017-01-10] MEDS: GABAPENTIN 300 MG CAP PO SCH ×3 (08:12→20:52)
--- NOTE | 2017-01-10 09:17 | CONS ---
Date/Time of Note Date/Time of Note DATE: 01/10/17 TIME: 09:16 Assessment/Plan Assessment/Plan Chief Complaint/Hosp Course Assessment: Anemia/stable Severe encephalopathy: likely secondary to drug abuse Acute Respiratory failure: Intubated and sedated Plan: No active GI bleed per discussion with nurse Will proceed with EGD only if warranted Continue to monitor h/h Continue PPI therapy Continue all supportive care Dr. Miranda to resume care of this patient tomorrow Problems: Consultation Date/Type/Reason Admit Date/Time Dec 31, 2016 at 00:30 Initial Consult Date 01/06/17 Type of Consultation: GI 24 HR Interval Summary Subjective hx not possible: pt non-verbal Constitutional: disoriented Exam/Review of Systems Vital Signs Vitals Vital Signs Date Time Temp Pulse Resp B/P Pulse Ox O2 Delivery O2 Flow Rate FiO2 01/10/17 09:00 66 22 123/64 98 Mechanical Ventilator 01/10/17 08:00 60 01/10/17 07:30 99.3 Intake and Output 01/09/17 01/09/17 01/10/17 15:00 23:00 07:00 Intake Total 2186.08 ml 2025.119 ml 1855.417 ml Output Total 1140 ml 1140 ml 2650 ml Balance 1046.08 ml 885.119 ml -794.583 ml Exam Constitutional: well developed Psych: confusion Head: atraumatic, normocephalic Eyes: EOMI, nl conjunctiva, nl lids ENMT: nl external ears & nose, nl lips & teeth, nl nasal mucosa & septum Neck: non-tender, supple Respiratory: clear to auscultation, normal air movement Cardiovascular: nl pulses, regular rate and rhythm Gastrointestinal: bowel sounds, non-tender, soft Results Result Diagram: 01/10/177 01/10/177 Results 24 hrs Laboratory Tests Test 01/10/17 04:27 White Blood Count 15.9 #H Red Blood Count 2.79 L Hemoglobin 8.4 L Hematocrit 25.2 L Mean Corpuscular Volume 90.3 Mean Corpuscular Hemoglobin 30.1 Mean Corpuscular Hemoglobin Concent 33.3 Red Cell Distribution Width 13.4 Platelet Count 290 # Mean Platelet Volume 12.6 H Neutrophils % 82.2 H Lymphocytes % 5.1 L Monocytes % 7.3 Eosinophils % 0.5 Basophils % 0.6 Nucleated Red Blood Cells % 0.3 H Neutrophils # 13.1 H Lymphocytes # 0.8 Monocytes # 1.2 H Eosinophils # 0.1 Basophils # 0.1 Nucleated Red Blood Cells # 0.0 Sodium Level 144 Potassium Level 3.3 L Chloride Level 110 Carbon Dioxide Level 21 Anion Gap 16 Blood Urea Nitrogen 6 L Creatinine 0.50 L Glucose Level 79 Calcium Level 7.0 L Phosphorus Level 4.2 Magnesium Level 1.6 L Total Bilirubin 0.3 Direct Bilirubin 0.10 Indirect Bilirubin 0.2 Aspartate Amino Transf (AST/SGOT) 40 Alanine Aminotransferase (ALT/SGPT) 55 Alkaline Phosphatase 241 H Total Protein 5.7 L Albumin 2.8 L Globulin 2.90 Albumin/Globulin Ratio 0.96 Medications Medications Current Medications Divalproex Sodium (Depakote Er) 500 mg HS PO Last administered on 01/09/17 21 :26; Admin Dose 500 MG; Start 12/31/16 at 21:00 Gabapentin (Neurontin) 600 mg TID PO Last administered on 01/10/17 08:12; Admin Dose 600 MG; Start 12/31/16 at 09:00 Acetaminophen (Tylenol Tab) 650 mg Q4H PRN PO pain/fever Last administered on 01/08/17 16:50; Admin Dose 650 MG; Start 12/31/16 at 01:00 Hydralazine HCl (Apresoline) 25 mg Q6H PRN PO sbp>160; Start 12/31/16 at 01:00 Enalaprilat (Vasotec Iv) 1.25 mg Q6H PRN IV sbp>160; Start 12/31/16 at 01:00 Ondansetron HCl (Zofran Inj) 4 mg Q4H PRN IV nausea; Start 12/31/16 at 01:00 Hydralazine HCl 10 mg 10 mg Q4H PRN IV ELEVATED SYSTOLIC BP Last administered on 01/02/17 13:12; Admin Dose 10 MG; Start 12/31/16 at 05:30 Propofol 100 ml @ 3.205 mls/ hr TITRATE IV Last administered on 01/10/17 09: 12; Admin Dose 32.046 MLS/HR; Start 12/31/16 at 05:30 Fentanyl 100 ml @ 2.5 mls/hr TITRATE IV Last administered on 01/10/17 04:09 ; Admin Dose 10 MLS/HR; Start 12/31/16 at 16:30 Midazolam HCl 50 ml @ 1 mls/hr TITRATE IV Last administered on 01/10/17 04:09 ; Admin Dose 10 MLS/HR; Start 12/31/16 at 16:30 Cefepime HCl 50 ml @ 100 mls/hr Q12 IVPB Last administered on 01/10/17 08:12 ; Admin Dose 100 MLS/HR; Start 12/31/16 at 20:00 Vecuronium [place]/Dextrose (Vecuronium [place]/D5W) 100 ml @ 6.03 mls/hr TITRATE IV Last administered on 01/03/17 04:07; Admin Dose 6.03 MLS/HR; Start 01/01/17 at 06:00 Labetalol HCl (Labetalol) 10 mg Q4H PRN IV SBP GREATER THAN 160 Last administered on 01/10/17 00:22; Admin Dose 10 MG; Start 01/01/17 at 12:00 IV Flush 10 ml 10 ml PRN PRN IV IV PROTOCOL; Start 01/02/17 at 17:00 Sodium Chloride (NS) 1,000 ml @ 125 mls/hr Q8H IV Last administered on 02:22; Admin Dose 125 MLS/HR; Start 01/03/17 at 10:30 Lorazepam 2 mg 2 mg Q2H PRN IV PRN Agitation. Last administered on 01/10/17 07:23; Admin Dose 2 MG; Start 01/04/17 at 09:00 Vancomycin HCl/ Sodium Chloride (Vancocin/NS) 500 ml @ 125 mls/hr Q8H IVPB Last administered on 01/10/17 02:22; Admin Dose 125 MLS/HR; Start 01/06/17 at 10:00 Pantoprazole 40 mg 40 mg BID@06,18 IV Last administered on 01/10/17 05:37; Admin Dose 40 MG; Start 01/06/17 at 09:30 Dexmedetomidine HCl/Sodium Chloride (Precedex/NS) 100 ml @ 5.89 mls/hr TITRATE IV Last administered on 01/10/17 05:22; Admin Dose 41.26 MLS/HR; Start 01/06 at 14:30 Metoclopramide HCl (Reglan) 5 mg Q6 IV Last administered on 01/10/17 05:37; Admin Dose 5 MG; Start 01/07/17 at 18:00 Carbamazepine (Tegretol Xr) 400 mg QHS PO Last administered on 01/09/17 21:26 ; Admin Dose 400 MG; Start 01/08/17 at 21:00 SHANNON JACQUES MD Jan 10, 2017 09:17
[2017-01-10] MEDS ORDERED: POTASSIUM CHLORIDE 50 ML IVPB PRN (11:00)
[2017-01-10] MEDS ORDERED: POTASSIUM CHLORIDE 50 ML ONE (11:03)
[2017-01-10 11:06] LABS: AADO2 Arterial 213.3 mmHg (7.0-24.0); Allen Test ACCEPTAB; Arterial Base Excess -4.8 mmol/L (-3.0-3); Arterial COHb 0.3 % (0.0-3.0); Arterial HCO3 22.7 mmol/L (22.0-26.0); Arterial MetHb 0.3 % (0.0-1.5); Arterial Total Hemglobin 9.6 g/dl (12.0-18.0); MODE VENT - AC
--- NOTE | 2017-01-10 11:20 | RADRPT ---
PROCEDURE: XR Chest. CLINICAL INDICATION: Check endotracheal tube position. TECHNIQUE: Single frontal view. COMPARISON: 01/10/2017. 0617 hours. FINDINGS: The endotracheal tube, nasogastric tube, and right arm PICC line remain in satisfactory position. Th ere is severe bilateral pulmonary air space disease consistent with pulmonary edema or bilateral pne umonia, slightly worse. The heart is enlarged. There is no pleural effusion. There is no pneumothorax. IMPRESSION: 1. Endotracheal tube in satisfactory position. 2. Slightly worse appearance of the lungs. 3. No other change from the prior study done earlier the same day. RPTAT: QQ .Jerry Arellano MD, MD Date Time Electronically viewed and signed by .Jerry Arellano MD, MD on 01/10/2017 11:19 .R/
[2017-01-10] MEDS: POTASSIUM CHLORIDE 50 ML IVPB PRN ×3 (11:23→15:48)
[2017-01-10] MEDS ORDERED: MAGNESIUM SULFATE 1 GM/D5W 100 ML IVPB ONE (12:00)
--- NOTE | 2017-01-10 14:20 | CONS ---
Date/Time of Note Date/Time of Note DATE: 01/10/17 TIME: 14:18 Consult Date/Type/Reason Admit Date/Time Dec 31, 2016 at 00:30 Initial Consult Date 01/06/17 Type of Consultation: Pulm/CCM Subjective Appears dysynchronous with vent. Objective Vital Signs Date Time Temp Pulse Resp B/P Pulse Ox O2 Delivery O2 Flow Rate FiO2 01/10/17 13:30 77 20 157/77 93 Mechanical Ventilator 01/10/17 12:00 50 01/10/17 12:00 98.6 Intake and Output 01/09/17 01/09/17 01/10/17 15:00 23:00 07:00 Intake Total 2186.08 ml 2025.119 ml 1855.417 ml Output Total 1140 ml 1140 ml 2650 ml Balance 1046.08 ml 885.119 ml -794.583 ml Exam HEENT: Pupils equal, round, and reactive to light. CARDIAC: S1, S2, 1/6 systolic ejection murmur CHEST: Diminished air entry bilaterally. ABDOMEN: Mildly distended. Bowel sounds present no guarding or rebound EXTREMITIES: No cyanosis/clubbing: + edema +1 Results/Medications Result Diagram: 01/10/17 0427 01/10/17 042 Results 24 hrs Laboratory Tests Test 01/10/17 04:27 01/10/17 09:09 01/10/17 11:00 White Blood Count 15.9 #H Red Blood Count 2.79 L Hemoglobin 8.4 L Hematocrit 25.2 L Mean Corpuscular Volume 90.3 Mean Corpuscular Hemoglobin 30.1 Mean Corpuscular Hemoglobin Concent 33.3 Red Cell Distribution Width 13.4 Platelet Count 290 # Mean Platelet Volume 12.6 H Neutrophils % 82.2 H Lymphocytes % 5.1 L Monocytes % 7.3 Eosinophils % 0.5 Basophils % 0.6 Nucleated Red Blood Cells % 0.3 H Neutrophils # 13.1 H Lymphocytes # 0.8 Monocytes # 1.2 H Eosinophils # 0.1 Basophils # 0.1 Nucleated Red Blood Cells # 0.0 Sodium Level 144 Potassium Level 3.3 L Chloride Level 110 Carbon Dioxide Level 21 Anion Gap 16 Blood Urea Nitrogen 6 L Creatinine 0.50 L Glucose Level 79 Calcium Level 7.0 L Phosphorus Level 4.2 Magnesium Level 1.6 L Total Bilirubin 0.3 Direct Bilirubin 0.10 Indirect Bilirubin 0.2 Aspartate Amino Transf (AST/SGOT) 40 Alanine Aminotransferase (ALT/SGPT) 55 Alkaline Phosphatase 241 H Total Protein 5.7 L Albumin 2.8 L Globulin 2.90 Albumin/Globulin Ratio 0.96 Vancomycin Level Trough 11.7 Blood Gas Specimen Source Blood arterial Arterial Blood Date Drawn 01/10/2017 10:50:02 AM Arterial Blood pH (Temp corrected) 7.238 *L Arterial Blood pCO2 (Temp correct) 54.4 H Arterial Blood pO2 (Temp corrected) 82.0 Arterial Blood HCO3 22.7 Arterial Blood Base Excess -4.8 L Arterial Blood Oxygen Saturation 93.6 L [place] Test ACCEPTAB Arterial Blood Gas Puncture Site Right Radial Arterial Blood Carboxyhemoglobin 0.3 Arterial Blood Methemoglobin 0.3 Blood Gas A-a O2 Differential 213.3 H Oxyhemoglobin Percent 93.0 Total Hemoglobin 9.6 L Blood Gas Temperature 37.0 Blood Gas Respiration Rate 16.0 Blood Gas Actual Respiration Rate 24 Blood Gas Modality VENT - AC FiO2 50.0 Blood Gas Tidal Volume 500.0 Blood Gas Low PEEP Setting 5.0 Blood Gas Critical Value Read Back Shobha BONILLA RN Blood Gas Notified Whom TM Blood Gas Notified Time 01/10/2017 11:06:08 AM Medications Current Medications Divalproex Sodium (Depakote Er) 500 mg HS PO Last administered on 01/09/17 21 :26; Admin Dose 500 MG; Start 12/31/16 at 21:00 Gabapentin (Neurontin) 600 mg TID PO Last administered on 01/10/17 08:12; Admin Dose 600 MG; Start 12/31/16 at 09:00 Acetaminophen (Tylenol Tab) 650 mg Q4H PRN PO pain/fever Last administered on 01/08/17 16:50; Admin Dose 650 MG; Start 12/31/16 at 01:00 Hydralazine HCl (Apresoline) 25 mg Q6H PRN PO sbp>160; Start 12/31/16 at 01:00 Enalaprilat (Vasotec Iv) 1.25 mg Q6H PRN IV sbp>160; Start 12/31/16 at 01:00 Ondansetron HCl (Zofran Inj) 4 mg Q4H PRN IV nausea; Start 12/31/16 at 01:00 Hydralazine HCl 10 mg 10 mg Q4H PRN IV ELEVATED SYSTOLIC BP Last administered on 01/02/17 13:12; Admin Dose 10 MG; Start 12/31/16 at 05:30 Fentanyl 100 ml @ 2.5 mls/hr TITRATE IV Last administered on 01/10/17 10:18 ; Admin Dose 10 MLS/HR; Start 12/31/16 at 16:30 Midazolam HCl 50 ml @ 1 mls/hr TITRATE IV Last administered on 01/10/17 10:18 ; Admin Dose 10 MLS/HR; Start 12/31/16 at 16:30 Cefepime HCl 50 ml @ 100 mls/hr Q12 IVPB Last administered on 01/10/17 08:12 ; Admin Dose 100 MLS/HR; Start 12/31/16 at 20:00 Vecuronium [place]/Dextrose (Vecuronium [place]/D5W) 100 ml @ 6.03 mls/hr TITRATE IV Last administered on 01/03/17 04:07; Admin Dose 6.03 MLS/HR; Start 01/01/17 at 06:00 Labetalol HCl (Labetalol) 10 mg Q4H PRN IV SBP GREATER THAN 160 Last administered on 01/10/17 00:22; Admin Dose 10 MG; Start 01/01/17 at 12:00 IV Flush 10 ml 10 ml PRN PRN IV IV PROTOCOL; Start 01/02/17 at 17:00 Sodium Chloride (NS) 1,000 ml @ 125 mls/hr Q8H IV Last administered on 10:13; Admin Dose 125 MLS/HR; Start 01/03/17 at 10:30 Lorazepam 2 mg 2 mg Q2H PRN IV PRN Agitation. Last administered on 01/10/17 13:25; Admin Dose 2 MG; Start 01/04/17 at 09:00 Vancomycin HCl/ Sodium Chloride (Vancocin/NS) 500 ml @ 125 mls/hr Q8H IVPB Last administered on 01/10/17 10:12; Admin Dose 125 MLS/HR; Start 01/06/17 at 10:00 Pantoprazole (Protonix Iv) 40 mg BID@06,18 IV Last administered on 01/10/17 05:37; Admin Dose 40 MG; Start 01/06/17 at 09:30 Metoclopramide HCl (Reglan) 5 mg Q6 IV Last administered on 01/10/17 11:57; Admin Dose 5 MG; Start 01/07/17 at 18:00 Carbamazepine 400 mg 400 mg QHS PO Last administered on 01/09/17 21:26; Admin Dose 400 MG; Start 01/08/17 at 21:00 Propofol (Diprivan) 100 ml @ 3.537 mls/ hr Q12H IV Last administered on 13:57; Admin Dose 35.37 MLS/HR; Start 01/10/17 at 09:30 Assessment/Plan Additional Assessment/Plan IMP: 1. Hypoxic respiratory failure/Vent Dependence 2. Acute Lung Injury/ARDS 3. History of drug overdose 4. History of psychiatric disease 5. Likely ALEX 6. Anemia RECS: 1. Decrease sedatives--> D/C precedex 2. Vent--> change to VC+; rate 20; Vt 500; PEEP 7 3. d/c iVF 4. TF/Free H20 5. Lasix daily 35 min cc time JUANA SANCHEZ MD Jan 10, 2017 14:20
[2017-01-10] MEDS: FUROSEMIDE 20 MG INJ IV SCH (14:34)
[2017-01-10] MEDS: hydrALAzine 20 MG INJ IV PRN (15:04)
[2017-01-10] MEDS: carBAMAZepine (XR) 200 MG TABSR PO SCH (20:52)
[2017-01-10] MEDS: DIVALPROEX (ER) 500 MG TAB PO SCH (20:52)
--- NOTE | 2017-01-10 23:38 | PN ---
Date/Time of Note Date/Time of Note DATE: 01/10/17 TIME: 23:37 Assessment/Plan VTE Prophylaxis VTE Prophylaxis Intervention: SCD's Lines/Catheters IV Catheter Type (from Nrs): PICC Line Central line still needed: Yes (critically ill) Urinary Cath still in place: Yes (critically ill) Reason Cath still needed: other (indicate) (paralyzed, sedated) Assessment/Plan Assessment/Plan [facility] 1. 46 yo man with severe encephalopathy related to illicit drug abuse, with continued extreme agitation when his sedation is lifted. Currently stable on ventilator AC 16. History of bipolar disorder, with limited medication compliance. CT brain, repeated once, has been normal. EEG showing encephalopathy on sedation and paralytics. 2. Acute respiratory failure. Intubated, sedated and paralysed. Possible aspiration pneumonia, on cefepime. WBC mildly elevated today (15.9k/ul) with greater left shift. Portable CXR showed more dense, diffuse pulmonary infiltrate despite treatment with day 5 vancomycin and day 11 cefepime. * Broader anaerobic coverage? * Will discuss getting ID involved to assess 3. Right foot Lisfranc fracture, secondary to kicking a door in the emergency room. * Pain control * Splinting 4. Anemia, with Hct 25.2% today. No signs of active bleeding. SCDs only to lower extremities for DVT prophylaxis. KUB/abdominal x-ray three days ago showed no signs of obstruction. *Continue twice daily proton pump inhibitors. * Blood transfusion as needed. 5. Nutrition/fluids * Tube feedings, free water per Dr. Salas * Stop IV fluids to limit fluid overload 6. Prophylaxis: SCDs for DVT prophylaxis, Protonix for GI prophylaxis 7. Disposition: ICU care, intubated, sedated, trying to weaning off sedation but patient reported to be extremely agitated today when sedation suspended. Fran Osborne MD PhD [phone] Subjective 24 Hr Interval Summary Subjective hx not possible: pt non-verbal, pt critical Exam/Review of Systems Vital Signs Vitals Vital Signs Date Time Temp Pulse Resp B/P Pulse Ox O2 Delivery O2 Flow Rate FiO2 01/10/17 23:05 90 28 95 50 01/10/17 22:30 178/92 01/10/17 21:30 Mechanical Ventilator 01/10/17 19:00 98.9 Intake and Output 01/09/17 01/09/17 01/10/17 15:00 23:00 07:00 Intake Total 2186.08 ml 2025.119 ml 1855.417 ml Output Total 1140 ml 1140 ml 2650 ml Balance 1046.08 ml 885.119 ml -794.583 ml Exam General: Ventilated, not alarming, preserved oxygenation. HEENT: Supple neck, reactive pupils, no scleral icterus or conjunctivitis. Resp: Clear lungs bilaterally in anterior champion CVS: Regular rhythm, rate in 90s, no murmur, good perfusion, mild pre-tibial edema Abd: Large, no tympany, bowel sounds positive Ext: Bruised right foot Neuro: Sedated Skin: No rash Results Result Diagram: 01/10/1742601/10/17426 Results 24 hrs Laboratory Tests Test 01/10/17 04:27 01/10/17 09:09 01/10/17 11:00 White Blood Count 15.9 #H Red Blood Count 2.79 L Hemoglobin 8.4 L Hematocrit 25.2 L Mean Corpuscular Volume 90.3 Mean Corpuscular Hemoglobin 30.1 Mean Corpuscular Hemoglobin Concent 33.3 Red Cell Distribution Width 13.4 Platelet Count 290 # Mean Platelet Volume 12.6 H Neutrophils % 82.2 H Lymphocytes % 5.1 L Monocytes % 7.3 Eosinophils % 0.5 Basophils % 0.6 Nucleated Red Blood Cells % 0.3 H Neutrophils # 13.1 H Lymphocytes # 0.8 Monocytes # 1.2 H Eosinophils # 0.1 Basophils # 0.1 Nucleated Red Blood Cells # 0.0 Sodium Level 144 Potassium Level 3.3 L Chloride Level 110 Carbon Dioxide Level 21 Anion Gap 16 Blood Urea Nitrogen 6 L Creatinine 0.50 L Glucose Level 79 Calcium Level 7.0 L Phosphorus Level 4.2 Magnesium Level 1.6 L Total Bilirubin 0.3 Direct Bilirubin 0.10 Indirect Bilirubin 0.2 Aspartate Amino Transf (AST/SGOT) 40 Alanine Aminotransferase (ALT/SGPT) 55 Alkaline Phosphatase 241 H Total Protein 5.7 L Albumin 2.8 L Globulin 2.90 Albumin/Globulin Ratio 0.96 Vancomycin Level Trough 11.7 Blood Gas Specimen Source Blood arterial Arterial Blood Date Drawn 01/10/2017 10:50:02 AM Arterial Blood pH (Temp corrected) 7.238 *L Arterial Blood pCO2 (Temp correct) 54.4 H Arterial Blood pO2 (Temp corrected) 82.0 Arterial Blood HCO3 22.7 Arterial Blood Base Excess -4.8 L Arterial Blood Oxygen Saturation 93.6 L [place] Test ACCEPTAB Arterial Blood Gas Puncture Site Right Radial Arterial Blood Carboxyhemoglobin 0.3 Arterial Blood Methemoglobin 0.3 Blood Gas A-a O2 Differential 213.3 H Oxyhemoglobin Percent 93.0 Total Hemoglobin 9.6 L Blood Gas Temperature 37.0 Blood Gas Respiration Rate 16.0 Blood Gas Actual Respiration Rate 24 Blood Gas Modality VENT - AC FiO2 50.0 Blood Gas Tidal Volume 500.0 Blood Gas Low PEEP Setting 5.0 Blood Gas Critical Value Read Back Shobha BONILLA RN Blood Gas Notified Whom TM Blood Gas Notified Time 01/10/2017 11:06:08 AM Medications Medications Current Medications Divalproex Sodium (Depakote Er) 500 mg HS PO Last administered on 01/10/17 20 :52; Admin Dose 500 MG; Start 12/31/16 at 21:00 Gabapentin (Neurontin) 600 mg TID PO Last administered on 01/10/17 20:52; Admin Dose 600 MG; Start 12/31/16 at 09:00 Acetaminophen (Tylenol Tab) 650 mg Q4H PRN PO pain/fever Last administered on 01/08/17 16:50; Admin Dose 650 MG; Start 12/31/16 at 01:00 Hydralazine HCl (Apresoline) 25 mg Q6H PRN PO sbp>160; Start 12/31/16 at 01:00 Enalaprilat (Vasotec Iv) 1.25 mg Q6H PRN IV sbp>160; Start 12/31/16 at 01:00 Ondansetron HCl (Zofran Inj) 4 mg Q4H PRN IV nausea; Start 12/31/16 at 01:00 Hydralazine HCl 10 mg 10 mg Q4H PRN IV ELEVATED SYSTOLIC BP Last administered on 01/10/17 15:04; Admin Dose 10 MG; Start 12/31/16 at 05:30 Fentanyl 100 ml @ 2.5 mls/hr TITRATE IV Last administered on 01/10/17 16:41 ; Admin Dose 10 MLS/HR; Start 12/31/16 at 16:30 Midazolam HCl 50 ml @ 1 mls/hr TITRATE IV Last administered on 01/10/17 17:40 ; Admin Dose 10 MLS/HR; Start 12/31/16 at 16:30 Cefepime HCl 50 ml @ 100 mls/hr Q12 IVPB Last administered on 01/10/17 20:52 ; Admin Dose 100 MLS/HR; Start 12/31/16 at 20:00 Vecuronium [place]/Dextrose (Vecuronium [place]/D5W) 100 ml @ 6.03 mls/hr TITRATE IV Last administered on 01/03/17 04:07; Admin Dose 6.03 MLS/HR; Start 01/01/17 at 06:00 Labetalol HCl (Labetalol) 10 mg Q4H PRN IV SBP GREATER THAN 160 Last administered on 01/10/17 22:33; Admin Dose 10 MG; Start 01/01/17 at 12:00 IV Flush (NS 10 ml) 10 ml PRN PRN IV IV PROTOCOL; Start 01/02/17 at 17:00 Lorazepam 2 mg 2 mg Q2H PRN IV PRN Agitation. Last administered on 01/10/17 23:29; Admin Dose 2 MG; Start 01/04/17 at 09:00 Vancomycin HCl/ Sodium Chloride (Vancocin/NS) 500 ml @ 125 mls/hr Q8H IVPB Last administered on 01/10/17 17:40; Admin Dose 125 MLS/HR; Start 01/06/17 at 10:00 Pantoprazole (Protonix Iv) 40 mg BID@06,18 IV Last administered on 01/10/17 17:40; Admin Dose 40 MG; Start 01/06/17 at 09:30 Metoclopramide HCl (Reglan) 5 mg Q6 IV Last administered on 01/10/17 23:29; Admin Dose 5 MG; Start 01/07/17 at 18:00 Carbamazepine 400 mg 400 mg QHS PO Last administered on 01/10/17 20:52; Admin Dose 400 MG; Start 01/08/17 at 21:00 Propofol (Diprivan) 100 ml @ 3.537 mls/ hr Q12H IV Last administered on 23:29; Admin Dose 35.37 MLS/HR; Start 01/10/17 at 09:30 Furosemide (Lasix) 20 mg DAILY IV Last administered on 01/10/17t 14:34; Admin Dose 20 MG; Start 01/10/17 at 14:30 YOGESH OSBORNE M.D. Jan 10, 2017 23:38
[2017-01-11] VITALS (58 sets, daily range): BP systolic 120–175; BP diastolic 64–152; PULSE 69–102; RESP 15–35
[2017-01-11] MEDS: VANCOMYCIN 1.75 GM in NS 500 ML IVPB SCH ×2 (02:03→09:44)
[2017-01-11] MEDS: LORAZEPAM 2 MG INJ IV PRN ×7 (02:03→14:44)
[2017-01-11] MEDS: PROPOFOL 100 ML IV SCH ×9 (02:03→22:43)
[2017-01-11] MEDS: FENTAnyl (DRIP) 1000 mcg/100mL 100 ML IV SCH ×3 (02:35→17:20)
[2017-01-11] MEDS: MIDAZOLAM (DRIP) 50 mg/50 mL 50 ML IV SCH ×5 (04:21→23:00)
[2017-01-11 05:00] LABS: ABNORMAL IP MESSAGE 1; BASOPHILS % 0.3 % (0.0-2.0); EOSINOPHILS # 0.1 10^3/ul (0.0-0.5); EOSINOPHILS % 0.7 % (0.0-7.0); HEMATOCRIT 23.7 % (42.0-52.0); HEMOGLOBIN 8.6 g/dl (14.0-18.0); LYMPHOCYTES # 0.6 10^3/ul (0.8-2.9); LYMPHOCYTES % 3.9 % (15.0-51.0); MEAN CORPUSCULAR HEMOGLOBIN 32.8 pg (29.0-33.0); MEAN CORPUSCULAR HGB CONC 36.3 g/dl (32.0-37.0); MEAN CORPUSCULAR VOLUME 90.5 fl (82.0-101.0); MEAN PLATELET VOLUME 12.1 fl (7.4-10.4); MONOCYTES % 6.4 % (0.0-11.0); NEUTROPHILS % 86.8 % (39.0-77.0); NUCLEATED RED BLOOD CELLS # 0.1 10^3/ul (0.0-0.0); NUCLEATED RED BLOOD CELLS% 0.7 /100WBC (0.0-0.0); PLATELET COUNT 313 10^3/UL (140-415); POSITIVE DIFF @See below; RED BLOOD COUNT 2.62 10^6/ul (4.70-6.10); RED CELL DISTRIBUTION WIDTH 14.2 % (11.5-14.5)
[2017-01-11 05:24] LABS: CALCIUM 7.2 mg/dl (8.4-10.2); CREATININE 0.47 mg/dl (0.61-1.24); POTASSIUM 3.9 mmol/L (3.5-5.1)
[2017-01-11] MEDS: METOCLOPRAMIDE 10 MG INJ IV SCH ×3 (05:50→17:11)
[2017-01-11] MEDS: PANTOPRAZOLE 40 MG INJ IV SCH ×2 (05:50→17:11)
[2017-01-11] MEDS: POTASSIUM CHLORIDE 50 ML IVPB PRN (05:50)
[2017-01-11 06:47] LABS: AADO2 Arterial 225.6 mmHg (7.0-24.0); Allen Test ACCEPTAB; Arterial Base Excess -3.5 mmol/L (-3.0-3); Arterial COHb 0.3 % (0.0-3.0); Arterial Fraction of Oxyhgb 95.6 % (93.0-99.0); Arterial HCO3 20.8 mmol/L (22.0-26.0); Arterial MetHb 0.3 % (0.0-1.5); Arterial Total Hemglobin 8.8 g/dl (12.0-18.0); MODE VENT - AC
--- NOTE | 2017-01-11 07:30 | RADRPT ---
PROCEDURE: XR Chest. CLINICAL INDICATION: Shortness of breath. TECHNIQUE: Single frontal view. COMPARISON: 01/10/2017. FINDINGS: The endotracheal tube, nasogastric tube, and right arm PICC line remain in satisfactory position. Th ere is severe bilateral pulmonary air space disease consistent with pulmonary edema or bilateral pne umonia, unchanged. The heart is enlarged. There is no pleural effusion. There is no pneumothorax. IMPRESSION: 1. No change from 01/10/2017. RPTAT: QQ .Jerry Arellano MD, MD Date Time Electronically viewed and signed by .Jerry Arellano MD, MD on 01/11/2017 07:30 .R/
[2017-01-11] MEDS: ACETAMINOPHEN 325 MG TAB PO PRN (07:46)
[2017-01-11] MEDS: GABAPENTIN 300 MG CAP PO SCH ×3 (08:03→20:36)
[2017-01-11] MEDS: FUROSEMIDE 20 MG INJ IV SCH (08:04)
[2017-01-11] MEDS: CEFEPIME 1GM/50 ML (PMX) 50 ML IVPB SCH ×2 (08:04→20:36)
--- NOTE | 2017-01-11 09:42 | PN ---
Date/Time of Note Date/Time of Note DATE: 01/11/17 TIME: 09:28 Assessment/Plan VTE Prophylaxis VTE Prophylaxis Intervention: SCD's Lines/Catheters IV Catheter Type (from Nrsg): PICC Line Central line still needed: Yes (for IV access ) Urinary Cath still in place: Yes Reason Cath still needed: other (indicate) (Intubated and sedated) Assessment/Plan Assessment/Plan 46 yo male with: 1. Severe encephalopathy 2ry to drug abuse likely Bath salts and/or synthetic marijuana. Patient still with episodes of agitation and still intubated for the past 11 days now, sedated now with propofol, fentanyl and Versed for sedation, off paralytics. Likely encephalopathy secondary to drug use, cannabinoid synthetics and possibly bath salts. He also does have a history of bipolar disorder but he is levels are low so may be noncompliant with his outpatient antipsychotics and medications CT head 2 since admission are both wnl, EEG showing encephalopathy as expected while patient was on for sedating agent and paralytics. 2. Acute respiratory Failure 2ry to severe Encephalopathy from Drug overuse, intubated, sedated and paralysed. Also likely aspirated and with aspiration PNA vs pneumonitis. On cefepime, vancomycin added since WBC has gone up yesterday and chest x-ray looked worse. Also started on Lasix. Per pulmonary concern for ARDS Still on FiO2 of 40% and PEEP of 5 Still on fentanyl, propofol, and Versed for sedation, also getting as needed Ativan 3. Bipolar disorder: Likely noncompliant with psychiatric medications. Medication resumed via NG tube 4. Right foot Lisfranc fracture: Pain control and ? splint 5. Anemia: Hemoglobin variable but 8.6 today. No signs of active bleeding. Appreciate GI recommendations. Lovenox discontinued, SCDs to lower extremities. KUB/abdominal x-ray 3 days ago yesterday with no signs of obstruction, on Reglan and proton pump inhibitors. Will continue to monitor. Blood transfusion as needed. Given lack of consenting next of kin, until we find a close relative, he is being transfused emergently only and getting procedures on an emergency basis. 6. Low-grade temperature, diaphoresis, blood cultures from 01/08 no growth to date. Urine culture from 01/08 no growth to date. Sputum culture is ordered. Patient has been started on vancomycin as an additional antibiotic already. Also check cardiac enzymes. Prophylaxis: SCDs for DVT prophylaxis, Protonix for GI prophylaxis Disposition: Still in ICU, intubated, sedated, trying to weaning off sedation but patient extremely agitated again today, he remains off paralytics. Patient non-transferable at this time. Subjective 24 Hr Interval Summary Free Text/Dictation Patient noted to be diaphoretic, low-grade temperature 100.5, white blood cell count elevated at 15, already on broad-spectrum antibiotics for aspiration pneumonia. Chest x-ray concerning for possible ARDS per pulmonary note. Patient still on mechanical ventilation, extreme agitation when sedation is on hold. Exam/Review of Systems Vital Signs Vitals Vital Signs Date Time Temp Pulse Resp B/P Pulse Ox O2 Delivery O2 Flow Rate FiO2 01/11/17 09:00 76 20 120/71 97 Mechanical Ventilator 01/11/17 07:30 100.5 01/11/17 07:30 50 Intake and Output 01/10/17 01/10/17 01/11/17 15:00 23:00 07:00 Intake Total 1426.79 ml 772.587 ml 948.127 ml Output Total 2725 ml 3605 ml 1350 ml Balance -1298.21 ml -2832.413 ml -401.873 ml Exam Constitutional: other (Sedated, intubated) Head: normocephalic Respiratory: diminished breath sounds (Bilaterally), other (On mechanical ventilation) Cardiovascular: nl pulses, regular rate and rhythm Gastrointestinal: non-tender, other (Moderate output from NG tube), soft Musculoskeletal: other (Right foot Lisfranc fracture) Extremities: normal pulses Neurological: other (Sedated) Results Result Diagram: 01/11/17 0400 01/11/17 0400 Results 24 hrs Laboratory Tests Test 01/10/17 11:00 01/11/17 04:00 01/11/17 05:00 Blood Gas Specimen Source Blood arterial Blood arterial Arterial Blood Date Drawn 01/10/2017 10:50:02 AM 01/11/2017 6:40:53 AM Arterial Blood pH (Temp corrected) 7.238 *L 7.401 Arterial Blood pCO2 (Temp correct) 54.4 H 34.3 L Arterial Blood pO2 (Temp corrected) 82.0 92.3 Arterial Blood HCO3 22.7 20.8 L Arterial Blood Base Excess -4.8 L -3.5 L Arterial Blood Oxygen Saturation 93.6 L 96.2 [place] Test ACCEPTAB ACCEPTAB Arterial Blood Gas Puncture Site Right Radial Right Radial Arterial Blood Carboxyhemoglobin 0.3 0.3 Arterial Blood Methemoglobin 0.3 0.3 Blood Gas A-a O2 Differential 213.3 H 225.6 H Oxyhemoglobin Percent 93.0 95.6 Total Hemoglobin 9.6 L 8.8 L Blood Gas Temperature 37.0 37.0 Blood Gas Respiration Rate 16.0 20.0 Blood Gas Actual Respiration Rate 24 26 Blood Gas Modality VENT - AC VENT - AC FiO2 50.0 50.0 Blood Gas Tidal Volume 500.0 500.0 Blood Gas Low PEEP Setting 5.0 7.0 Blood Gas Critical Value Read Back Shobha BONILLA RN Blood Gas Notified Whom TM BR Blood Gas Notified Time 01/10/2017 11:06:08 AM 01/11/2017 6:47:41 AM White Blood Count 15.0 H Red Blood Count 2.62 L Hemoglobin 8.6 L Hematocrit 23.7 L Mean Corpuscular Volume 90.5 Mean Corpuscular Hemoglobin 32.8 Mean Corpuscular Hemoglobin Concent 36.3 Red Cell Distribution Width 14.2 Platelet Count 313 Mean Platelet Volume 12.1 H Neutrophils % 86.8 H Lymphocytes % 3.9 L Monocytes % 6.4 Eosinophils % 0.7 Basophils % 0.3 Nucleated Red Blood Cells % 0.7 H Neutrophils # 13.0 H Lymphocytes # 0.6 L Monocytes # 1.0 H Eosinophils # 0.1 Basophils # 0.0 Nucleated Red Blood Cells # 0.1 H Sodium Level 137 Potassium Level 3.9 Chloride Level 102 Carbon Dioxide Level 18 L Anion Gap 21 H Blood Urea Nitrogen 6 L Creatinine 0.47 L Glucose Level 91 Calcium Level 7.2 L Blood Gas Inspiratory Pressure 20.0 Imaging Free Text/Dictation PROCEDURE: XR Chest. CLINICAL INDICATION: Shortness of breath. TECHNIQUE: Single frontal view. COMPARISON: 01/10/2017. FINDINGS: The endotracheal tube, nasogastric tube, and right arm PICC line remain in satisfactory position. There is severe bilateral pulmonary air space disease consistent with pulmonary edema or bilateral pneumonia, unchanged. The heart is enlarged. There is no pleural effusion. There is no pneumothorax. IMPRESSION: 1. No change from 01/10/2017. RPTAT: QQ .Jerry Arellano MD, MD Date Time Electronically viewed and signed by .Jerry Arellano MD, on 01/11/2017 07:30 Medications Medications Current Medications Divalproex Sodium (Depakote Er) 500 mg HS PO Last administered on 01/10/17 20 :52; Admin Dose 500 MG; Start 12/31/16 at 21:00 Gabapentin (Neurontin) 600 mg TID PO Last administered on 01/11/17 08:03; Admin Dose 600 MG; Start 12/31/16 at 09:00 Acetaminophen (Tylenol Tab) 650 mg Q4H PRN PO pain/fever Last administered on 01/11/17 07:46; Admin Dose 650 MG; Start 12/31/16 at 01:00 Hydralazine HCl (Apresoline) 25 mg Q6H PRN PO sbp>160; Start 12/31/16 at 01:00 Enalaprilat (Vasotec Iv) 1.25 mg Q6H PRN IV sbp>160; Start 12/31/16 at 01:00 Ondansetron HCl (Zofran Inj) 4 mg Q4H PRN IV nausea; Start 12/31/16 at 01:00 Hydralazine HCl 10 mg 10 mg Q4H PRN IV ELEVATED SYSTOLIC BP Last administered on 01/10/17 15:04; Admin Dose 10 MG; Start 12/31/16 at 05:30 Fentanyl 100 ml @ 2.5 mls/hr TITRATE IV Last administered on 01/11/17 08:52 ; Admin Dose 10 MLS/HR; Start 12/31/16 at 16:30 Midazolam HCl 50 ml @ 1 mls/hr TITRATE IV Last administered on 01/11/17 08:52 ; Admin Dose 10 MLS/HR; Start 12/31/16 at 16:30 Cefepime HCl 50 ml @ 100 mls/hr Q12 IVPB Last administered on 01/11/17 08:04 ; Admin Dose 100 MLS/HR; Start 12/31/16 at 20:00 Vecuronium [place]/Dextrose (Vecuronium [place]/D5W) 100 ml @ 6.03 mls/hr TITRATE IV Last administered on 01/03/17 04:07; Admin Dose 6.03 MLS/HR; Start 01/01/17 at 06:00 Labetalol HCl (Labetalol) 10 mg Q4H PRN IV SBP GREATER THAN 160 Last administered on 01/10/17 22:33; Admin Dose 10 MG; Start 01/01/17 at 12:00 IV Flush (NS 10 ml) 10 ml PRN PRN IV IV PROTOCOL; Start 01/02/17 at 17:00 Lorazepam 2 mg 2 mg Q2H PRN IV PRN Agitation. Last administered on 01/11/17 07:45; Admin Dose 2 MG; Start 01/04/17 at 09:00 Vancomycin HCl/ Sodium Chloride (Vancocin/NS) 500 ml @ 125 mls/hr Q8H IVPB Last administered on 01/11/17 02:03; Admin Dose 125 MLS/HR; Start 01/06/17 at 10:00 Pantoprazole (Protonix Iv) 40 mg BID@06,18 IV Last administered on 01/11/17 05:50; Admin Dose 40 MG; Start 01/06/17 at 09:30 Metoclopramide HCl (Reglan) 5 mg Q6 IV Last administered on 01/11/17 05:50; Admin Dose 5 MG; Start 01/07/17 at 18:00 Carbamazepine 400 mg 400 mg QHS PO Last administered on 01/10/17 20:52; Admin Dose 400 MG; Start 01/08/17 at 21:00 Propofol (Diprivan) 100 ml @ 3.537 mls/ hr Q12H IV Last administered on 07:46; Admin Dose 35.37 MLS/HR; Start 01/10/17 at 09:30 Furosemide (Lasix) 20 mg DAILY IV Last administered on 01/11/17 08:04; Admin Dose 20 MG; Start 01/10/17 at 14:30 TRENT NEWMAN Jan 11, 2017 09:39
[2017-01-11] MEDS: HALOPERIDOL 5 MG INJ IV PRN ×2 (11:31→19:34)
--- NOTE | 2017-01-11 13:00 | CONS ---
Date/Time of Note Date/Time of Note DATE: 01/11/17 TIME: 12:59 Consult Date/Type/Reason Admit Date/Time Dec 31, 2016 at 00:30 Initial Consult Date 12/31/16 Type of Consultation: Pulm/CCM Subjective Patient continues to have significant agitation off sedation. Objective Vital Signs Date Time Temp Pulse Resp B/P Pulse Ox O2 Delivery O2 Flow Rate FiO2 01/11/17 12:30 76 15 136/77 98 Mechanical Ventilator 01/11/17 12:00 98.2 01/11/17 07:30 50 Intake and Output 01/10/17 01/10/17 01/11/17 15:00 23:00 07:00 Intake Total 1426.79 ml 772.587 ml 948.127 ml Output Total 2725 ml 3605 ml 1350 ml Balance -1298.21 ml -2832.413 ml -401.873 ml Exam PHYSICAL EXAMINATION GENERAL: Well-nourished well-developed gentleman orally intubated on mechanical ventilation VITAL SIGNS: see below. HEENT: Pupils equal, round, and reactive to light. CARDIAC: S1, S2, 1/6 systolic ejection murmur CHEST: Diminished air entry bilaterally. ABDOMEN: Mildly distended. Bowel sounds present no guarding or rebound EXTREMITIES: No cyanosis, clubbing edema +1 NEUROLOGIC: Generalized weakness Results/Medications Result Diagram: 01/11/17 0400 01/11/17 0400 Results 24 hrs Laboratory Tests Test 01/11/17 04:00 01/11/17 05:00 White Blood Count 15.0 H Red Blood Count 2.62 L Hemoglobin 8.6 L Hematocrit 23.7 L Mean Corpuscular Volume 90.5 Mean Corpuscular Hemoglobin 32.8 Mean Corpuscular Hemoglobin Concent 36.3 Red Cell Distribution Width 14.2 Platelet Count 313 Mean Platelet Volume 12.1 H Neutrophils % 86.8 H Lymphocytes % 3.9 L Monocytes % 6.4 Eosinophils % 0.7 Basophils % 0.3 Nucleated Red Blood Cells % 0.7 H Neutrophils # 13.0 H Lymphocytes # 0.6 L Monocytes # 1.0 H Eosinophils # 0.1 Basophils # 0.0 Nucleated Red Blood Cells # 0.1 H Sodium Level 137 Potassium Level 3.9 Chloride Level 102 Carbon Dioxide Level 18 L Anion Gap 21 H Blood Urea Nitrogen 6 L Creatinine 0.47 L Glucose Level 91 Calcium Level 7.2 L Blood Gas Specimen Source Blood arterial Arterial Blood Date Drawn 01/11/2017 6:40:53 AM Arterial Blood pH (Temp corrected) 7.401 Arterial Blood pCO2 (Temp correct) 34.3 L Arterial Blood pO2 (Temp corrected) 92.3 Arterial Blood HCO3 20.8 L Arterial Blood Base Excess -3.5 L Arterial Blood Oxygen Saturation 96.2 [place] Test ACCEPTAB Arterial Blood Gas Puncture Site Right Radial Arterial Blood Carboxyhemoglobin 0.3 Arterial Blood Methemoglobin 0.3 Blood Gas A-a O2 Differential 225.6 H Oxyhemoglobin Percent 95.6 Total Hemoglobin 8.8 L Blood Gas Temperature 37.0 Blood Gas Respiration Rate 20.0 Blood Gas Actual Respiration Rate 26 Blood Gas Modality VENT - AC FiO2 50.0 Blood Gas Tidal Volume 500.0 Blood Gas Low PEEP Setting 7.0 Blood Gas Inspiratory Pressure 20.0 Blood Gas Notified Whom BR Blood Gas Notified Time 01/11/2017 6:47:41 AM Medications Current Medications Divalproex Sodium (Depakote Er) 500 mg HS PO Last administered on 01/10/17 20 :52; Admin Dose 500 MG; Start 12/31/16 at 21:00 Gabapentin (Neurontin) 600 mg TID PO Last administered on 01/11/17 12:46; Admin Dose 600 MG; Start 12/31/16 at 09:00 Acetaminophen (Tylenol Tab) 650 mg Q4H PRN PO pain/fever Last administered on 01/11/17 07:46; Admin Dose 650 MG; Start 12/31/16 at 01:00 Hydralazine HCl (Apresoline) 25 mg Q6H PRN PO sbp>160; Start 12/31/16 at 01:00 Enalaprilat (Vasotec Iv) 1.25 mg Q6H PRN IV sbp>160; Start 12/31/16 at 01:00 Ondansetron HCl (Zofran Inj) 4 mg Q4H PRN IV nausea; Start 12/31/16 at 01:00 Hydralazine HCl 10 mg 10 mg Q4H PRN IV ELEVATED SYSTOLIC BP Last administered on 01/10/17 15:04; Admin Dose 10 MG; Start 12/31/16 at 05:30 Fentanyl 100 ml @ 2.5 mls/hr TITRATE IV Last administered on 01/11/17 08:52 ; Admin Dose 10 MLS/HR; Start 12/31/16 at 16:30 Midazolam HCl 50 ml @ 1 mls/hr TITRATE IV Last administered on 01/11/17 08:52 ; Admin Dose 10 MLS/HR; Start 12/31/16 at 16:30 Cefepime HCl 50 ml @ 100 mls/hr Q12 IVPB Last administered on 01/11/17 08:04 ; Admin Dose 100 MLS/HR; Start 12/31/16 at 20:00 Vecuronium [place]/Dextrose (Vecuronium [place]/D5W) 100 ml @ 6.03 mls/hr TITRATE IV Last administered on 01/03/17 04:07; Admin Dose 6.03 MLS/HR; Start 01/01/17 at 06:00 Labetalol HCl (Labetalol) 10 mg Q4H PRN IV SBP GREATER THAN 160 Last administered on 01/10/17 22:33; Admin Dose 10 MG; Start 01/01/17 at 12:00 IV Flush (NS 10 ml) 10 ml PRN PRN IV IV PROTOCOL; Start 01/02/17 at 17:00 Lorazepam (Ativan) 2 mg Q2H PRN IV PRN Agitation. Last administered on 11:57; Admin Dose 2 MG; Start 01/04/17 at 09:00 Pantoprazole (Protonix Iv) 40 mg BID@06,18 IV Last administered on 01/11/17 05:50; Admin Dose 40 MG; Start 01/06/17 at 09:30 Carbamazepine 400 mg 400 mg QHS PO Last administered on 01/10/17 20:52; Admin Dose 400 MG; Start 01/08/17 at 21:00 Propofol (Diprivan) 100 ml @ 3.537 mls/ hr Q12H IV Last administered on 11:58; Admin Dose 35.37 MLS/HR; Start 01/10/17 at 09:30 Furosemide (Lasix) 20 mg DAILY IV Last administered on 01/11/17 08:04; Admin Dose 20 MG; Start 01/10/17 at 14:30 Metoclopramide HCl (Reglan) 10 mg Q6 IV Last administered on 10/23/17at 11:31; Admin Dose 10 MG; Start 01/11/17 at 12:00 Haloperidol 5 mg 5 mg Q8 PRN IV AGITATION Last administered on 01/11/17 11:31 ; Admin Dose 5 MG; Start 01/11/17 at 11:30 Vancomycin HCl/ Sodium Chloride (Vancocin/NS) 500 ml @ 125 mls/hr Q8H IVPB ; Start 01/11/17 at 18:00 Assessment/Plan Chief Complaint/Hosp Course IMP: 1. Hypoxic respiratory failure/Vent Dependence 2. Acute Lung Injury/ARDS 3. History of drug overdose 4. History of psychiatric disease 5. Likely ALEX 6. Anemia RECS: 1. Decrease sedatives--> D/C precedex, trial of Haldol 2. Vent--> change to VC+; rate 20; Vt 500; PEEP 7 3. d/c iVF 4. TF/Free H20 5. Lasix daily Problems: BRIAN[facility]VEDRA [facility] Jan 11, 2017 13:00
--- NOTE | 2017-01-11 13:04 | PN ---
Date/Time of Note Date/Time of Note DATE: 01/11/17 TIME: 12:54 Assessment/Plan VTE Prophylaxis VTE Prophylaxis Intervention: SCD's Lines/Catheters IV Catheter Type (from Nrs): PICC Line Central line still needed: Yes (medication) Urinary Cath still in place: Yes (critically ill) Reason Cath still needed: skin wounds contaminated by urine, other (indicate) ( monitor out-put) Assessment/Plan Chief Complaint/Hosp Course Assessment: Anemia/stable Hgb currently 8.6 Severe encephalopathy Likely secondary to drug use Acute Respiratory failure Intubated and sedated Plan: Continue to monitor h/h Continue PPI therapy Will proceed with EGD if warranted No evidence of GI bleed at this time Plan alternate clamping NGT x4 hours and then back to suction x1 hour. Continue all supportive care Patient seen in collaboration with Dr. Miranda Subjective: Course reviewed with nursing staff Patient interviewed and examined All labs, imaging and other results reviewed The patient remains sedated and intubated. Maxed out on all drips. Bowels are hypoactive. KUB negative for obstruction.Pt on reglan Will plan on clamping NGT x4 hours and then back to suction x1 hour, as continuous intermittent suction can increase secretions as PH is low and stomach lacks feedback to stop producing acid. Hgb currently stable at 8.6- no evidence of GI bleed Will continue to monitor at this time Exam Constitutional: well developed Psych: unable to assess Head: atraumatic, normocephalic Eyes: EOMI, nl conjunctiva, nl lids ENMT: nl external ears & nose, nl lips & teeth, nl nasal mucosa & septum Neck: non-tender, supple Respiratory: Bilateral Rales Cardiovascular: nl pulses, regular rate and rhythm Gastrointestinal: hypoactive bowel sounds, soft Problems: Exam/Review of Systems Vital Signs Vitals Vital Signs Date Time Temp Pulse Resp B/P Pulse Ox O2 Delivery O2 Flow Rate FiO2 01/11/17 12:30 76 15 136/77 98 Mechanical Ventilator 01/11/17 12:00 98.2 01/11/17 07:30 50 Intake and Output 01/10/17 01/10/17 01/11/17 15:00 23:00 07:00 Intake Total 1426.79 ml 772.587 ml 948.127 ml Output Total 2725 ml 3605 ml 1350 ml Balance -1298.21 ml -2832.413 ml -401.873 ml Exam Constitutional: other Results Result Diagram: 01/11/17 0400 01/11/17 0400 Results 24 hrs Laboratory Tests Test 01/11/17 04:00 01/11/17 05:00 White Blood Count 15.0 H Red Blood Count 2.62 L Hemoglobin 8.6 L Hematocrit 23.7 L Mean Corpuscular Volume 90.5 Mean Corpuscular Hemoglobin 32.8 Mean Corpuscular Hemoglobin Concent 36.3 Red Cell Distribution Width 14.2 Platelet Count 313 Mean Platelet Volume 12.1 H Neutrophils % 86.8 H Lymphocytes % 3.9 L Monocytes % 6.4 Eosinophils % 0.7 Basophils % 0.3 Nucleated Red Blood Cells % 0.7 H Neutrophils # 13.0 H Lymphocytes # 0.6 L Monocytes # 1.0 H Eosinophils # 0.1 Basophils # 0.0 Nucleated Red Blood Cells # 0.1 H Sodium Level 137 Potassium Level 3.9 Chloride Level 102 Carbon Dioxide Level 18 L Anion Gap 21 H Blood Urea Nitrogen 6 L Creatinine 0.47 L Glucose Level 91 Calcium Level 7.2 L Blood Gas Specimen Source Blood arterial Arterial Blood Date Drawn 01/11/2017 6:40:53 AM Arterial Blood pH (Temp corrected) 7.401 Arterial Blood pCO2 (Temp correct) 34.3 L Arterial Blood pO2 (Temp corrected) 92.3 Arterial Blood HCO3 20.8 L Arterial Blood Base Excess -3.5 L Arterial Blood Oxygen Saturation 96.2 [place] Test ACCEPTAB Arterial Blood Gas Puncture Site Right Radial Arterial Blood Carboxyhemoglobin 0.3 Arterial Blood Methemoglobin 0.3 Blood Gas A-a O2 Differential 225.6 H Oxyhemoglobin Percent 95.6 Total Hemoglobin 8.8 L Blood Gas Temperature 37.0 Blood Gas Respiration Rate 20.0 Blood Gas Actual Respiration Rate 26 Blood Gas Modality VENT - AC FiO2 50.0 Blood Gas Tidal Volume 500.0 Blood Gas Low PEEP Setting 7.0 Blood Gas Inspiratory Pressure 20.0 Blood Gas Notified Whom BR Blood Gas Notified Time 01/11/2017 6:47:41 AM Medications Medications Current Medications Divalproex Sodium (Depakote Er) 500 mg HS PO Last administered on 01/10/17t 20 :52; Admin Dose 500 MG; Start 12/31/16 at 21:00 Gabapentin (Neurontin) 600 mg TID PO Last administered on 01/11/17 12:46; Admin Dose 600 MG; Start 12/31/16 at 09:00 Acetaminophen (Tylenol Tab) 650 mg Q4H PRN PO pain/fever Last administered on 01/11/17 07:46; Admin Dose 650 MG; Start 12/31/16 at 01:00 Hydralazine HCl (Apresoline) 25 mg Q6H PRN PO sbp>160; Start 12/31/16 at 01:00 Enalaprilat (Vasotec Iv) 1.25 mg Q6H PRN IV sbp>160; Start 12/31/16 at 01:00 Ondansetron HCl (Zofran Inj) 4 mg Q4H PRN IV nausea; Start 12/31/16 at 01:00 Hydralazine HCl 10 mg 10 mg Q4H PRN IV ELEVATED SYSTOLIC BP Last administered on 01/10/17 15:04; Admin Dose 10 MG; Start 12/31/16 at 05:30 Fentanyl 100 ml @ 2.5 mls/hr TITRATE IV Last administered on 01/11/17 08:52 ; Admin Dose 10 MLS/HR; Start 12/31/16 at 16:30 Midazolam HCl 50 ml @ 1 mls/hr TITRATE IV Last administered on 01/11/17 08:52 ; Admin Dose 10 MLS/HR; Start 12/31/16 at 16:30 Cefepime HCl 50 ml @ 100 mls/hr Q12 IVPB Last administered on 01/11/17 08:04 ; Admin Dose 100 MLS/HR; Start 12/31/16 at 20:00 Vecuronium [place]/Dextrose (Vecuronium [place]/D5W) 100 ml @ 6.03 mls/hr TITRATE IV Last administered on 01/03/17 04:07; Admin Dose 6.03 MLS/HR; Start 01/01/17 at 06:00 Labetalol HCl (Labetalol) 10 mg Q4H PRN IV SBP GREATER THAN 160 Last administered on 01/10/17 22:33; Admin Dose 10 MG; Start 01/01/17 at 12:00 IV Flush (NS 10 ml) 10 ml PRN PRN IV IV PROTOCOL; Start 01/02/17 at 17:00 Lorazepam (Ativan) 2 mg Q2H PRN IV PRN Agitation. Last administered on 11:57; Admin Dose 2 MG; Start 01/04/17 at 09:00 Pantoprazole (Protonix Iv) 40 mg BID@06,18 IV Last administered on 01/11/17 05:50; Admin Dose 40 MG; Start 01/06/17 at 09:30 Carbamazepine 400 mg 400 mg QHS PO Last administered on 01/10/17 20:52; Admin Dose 400 MG; Start 01/08/17 at 21:00 Propofol (Diprivan) 100 ml @ 3.537 mls/ hr Q12H IV Last administered on 11:58; Admin Dose 35.37 MLS/HR; Start 01/10/17 at 09:30 Furosemide (Lasix) 20 mg DAILY IV Last administered on 01/11/17 08:04; Admin Dose 20 MG; Start 01/10/17 at 14:30 Metoclopramide HCl (Reglan) 10 mg Q6 IV Last administered on 01/11/17 11:31; Admin Dose 10 MG; Start 01/11/17 at 12:00 Haloperidol 5 mg 5 mg Q8 PRN IV AGITATION Last administered on 01/11/17 11:31 ; Admin Dose 5 MG; Start 01/11/17 at 11:30 Vancomycin HCl/ Sodium Chloride (Vancocin/NS) 500 ml @ 125 mls/hr Q8H IVPB ; Start 01/11/17 at 18:00 JULY MCKENNA Jan 11, 2017 13:04
[2017-01-11 13:47] LABS: TROPONIN-I 0.029 ng/ml (0.00-0.12)
[2017-01-11 13:48] LABS: CK-MB 1.17 ng/ml (0.0-2.4)
[2017-01-11] MEDS: VANCOMYCIN 2 GM in SOD CHLORIDE 0.9% 500 ML IVPB SCH (17:16)
[2017-01-11] MEDS ORDERED: carBAMAZEpine SUSP 100 MG/5 ML NGT SCH ×2 (21:00)
[2017-01-11] MEDS ORDERED: carBAMAZepine (XR) 100 MG TABSR PO SCH (21:00)
[2017-01-11] MEDS: VALPROIC ACID LIQUID CUP 250 MG/5 ML CUP NGT SCH (22:27)
[2017-01-12] VITALS (59 sets, daily range): BP systolic 108–141; BP diastolic 59–84; PULSE 71–92; RESP 20–27
[2017-01-12] MEDS: METOCLOPRAMIDE 10 MG INJ IV SCH ×5 (00:14→23:32)
[2017-01-12] MEDS: PROPOFOL 100 ML IV SCH ×9 (01:20→21:45)
[2017-01-12] MEDS: VANCOMYCIN 2 GM in SOD CHLORIDE 0.9% 500 ML IVPB SCH ×3 (01:52→17:16)
[2017-01-12] MEDS: FENTAnyl (DRIP) 1000 mcg/100mL 100 ML IV SCH ×3 (03:15→22:20)
[2017-01-12] MEDS: MIDAZOLAM (DRIP) 50 mg/50 mL 50 ML IV SCH ×5 (03:28→21:11)
[2017-01-12 05:15] LABS: BASOPHIL # 0.1 10^3/ul (0.0-0.1); BASOPHILS % 0.6 % (0.0-2.0); EOSINOPHILS # 0.6 10^3/ul (0.0-0.5); EOSINOPHILS % 6.3 % (0.0-7.0); HEMATOCRIT 23.2 % (42.0-52.0); HEMOGLOBIN 7.5 g/dl (14.0-18.0); LYMPHOCYTES # 0.7 10^3/ul (0.8-2.9); LYMPHOCYTES % 7.5 % (15.0-51.0); MEAN CORPUSCULAR HEMOGLOBIN 29.3 pg (29.0-33.0); MEAN CORPUSCULAR HGB CONC 32.3 g/dl (32.0-37.0); MEAN CORPUSCULAR VOLUME 90.6 fl (82.0-101.0); MEAN PLATELET VOLUME 11.7 fl (7.4-10.4); MONOCYTE # 0.7 10^3/ul (0.3-0.9); MONOCYTES % 6.7 % (0.0-11.0); NEUTROPHIL # 7.7 10^3/ul (1.6-7.5); NEUTROPHILS % 78.1 % (39.0-77.0); PLATELET COUNT 298 10^3/UL (140-415); RED BLOOD COUNT 2.56 10^6/ul (4.70-6.10); RED CELL DISTRIBUTION WIDTH 14.1 % (11.5-14.5); WHITE BLOOD COUNT 9.9 10^3/ul (4.8-10.8)
[2017-01-12] MEDS: PANTOPRAZOLE 40 MG INJ IV SCH ×2 (05:34→17:16)
[2017-01-12 05:44] LABS: CALCIUM 7.8 mg/dl (8.4-10.2); CREATININE 0.57 mg/dl (0.61-1.24); PHOSPHORUS 2.8 mg/dl (2.5-4.9)
[2017-01-12 06:13] LABS: POTASSIUM 2.9 mmol/L (3.5-5.1)
[2017-01-12] MEDS: POTASSIUM CHLORIDE 50 ML IVPB PRN ×3 (08:22→11:31)
--- NOTE | 2017-01-12 09:55 | PN ---
Date/Time of Note Date/Time of Note DATE: 01/12/17 TIME: 09:41 Assessment/Plan VTE Prophylaxis VTE Prophylaxis Intervention: SCD's Lines/Catheters IV Catheter Type (from Nrsg): PICC Line Central line still needed: Yes (For IV access) Urinary Cath still in place: Yes Reason Cath still needed: other (indicate) (intubated and sedated ) Assessment/Plan Assessment/Plan 46 yo male with: 1. Severe encephalopathy 2ry to drug abuse likely Bath salts and/or synthetic marijuana. Patient still with episodes of agitation and still intubated for the past 11 days now, sedated now with propofol, fentanyl and Versed for sedation, off paralytics. Likely encephalopathy secondary to drug use, cannabinoid synthetics and possibly bath salts. He also does have a history of bipolar disorder but he is levels are low so may be noncompliant with his outpatient antipsychotics and medications CT head 2 since admission are both wnl, EEG showing encephalopathy as expected while patient was on for sedating agent and paralytics. Continue attempts at titrating sedation down. 2. Acute respiratory Failure 2ry to severe Encephalopathy from Drug overuse, intubated, sedated and paralysed. Also likely aspirated and with aspiration PNA vs pneumonitis. On cefepime, vancomycin added since WBC has gone up this weekend and chest x- ray looked worse. On Lasix. Per pulmonary concern for ARDS Still on FiO2 of 40% and PEEP of 7 Still on fentanyl, propofol, and Versed for sedation, also getting as needed Ativan but hopefully will be able to titrate sedation down 3. Bipolar disorder: Likely noncompliant with psychiatric medications. Medication resumed via NG tube 4. Right foot Lisfranc fracture: Pain control and ? splint 5. Anemia: Hemoglobin variable but 7.5 today. No signs of active bleeding. GI following. Lovenox discontinued, SCDs to lower extremities. KUB/abdominal x-ray 3 days ago with no signs of obstruction, on Reglan up to 10 mg q6 and proton pump inhibitors. Will continue to monitor. Blood transfusion as needed. Given lack of consenting next of kin, until we find a close relative, he is being transfused emergently only and getting procedures on an emergency basis. 6. Low-grade temperature, diaphoresis, blood cultures from 01/08 no growth to date. Urine culture from 01/08 no growth to date. Afebrile today and white blood cell count down to normal. Sputum culture pending but patient already on broad coverage with cefepime and vancomycin Cardiac enzymes x1 wnl. 7. Hypokalemia: Replete potassium today, start free water for mild hypernatremia and prerenal azotemia. Patient currently on Lasix low dose Prophylaxis: SCDs for DVT prophylaxis, Protonix for GI prophylaxis Disposition: Still in ICU, intubated, sedated, trying to weaning off sedation, remains off paralytics. Patient non-transferable at this time. Subjective 24 Hr Interval Summary Free Text/Dictation Patient remains sedated and intubated. Attempting to titrate sedation down. Remains hemodynamically stable, still significantly encephalopathic. Less output from NG tube, will resume tube feeding and free water while on Reglan Exam/Review of Systems Vital Signs Vitals Vital Signs Date Time Temp Pulse Resp B/P Pulse Ox O2 Delivery O2 Flow Rate FiO2 01/12/17 08:00 99.0 78 24 108/62 100 Mechanical Ventilator 01/12/17 05:24 40 Intake and Output 01/11/17 01/11/17 01/12/17 15:00 23:00 07:00 Intake Total 992.96 ml 352.22 ml 942.96 ml Output Total 1725 ml 1845 ml 595 ml Balance -732.04 ml -1492.78 ml 347.96 ml Exam Constitutional: other (Sedated and intubated) Respiratory: diminished breath sounds (At bases bilaterally), other (On vent) Cardiovascular: nl pulses, regular rate and rhythm Gastrointestinal: non-tender, other (NG tube in place), soft Musculoskeletal: other (Right foot Lisfranc fracture) Extremities: normal pulses, other (No edema clubbing or cyanosis) Neurological: other (Sedated, intubated) Results Result Diagram: 01/12/17 0400 01/12/17 0400 Results 24 hrs Laboratory Tests Test 01/11/17 11:26 01/12/17 04:00 Creatine Kinase 151 Creatine Kinase Index 0.8 Creatinine Kinase MB (Mass) 1.17 Troponin I 0.029 White Blood Count 9.9 # Red Blood Count 2.56 L Hemoglobin 7.5 L Hematocrit 23.2 L Mean Corpuscular Volume 90.6 Mean Corpuscular Hemoglobin 29.3 Mean Corpuscular Hemoglobin Concent 32.3 Red Cell Distribution Width 14.1 Platelet Count 298 Mean Platelet Volume 11.7 H Neutrophils % 78.1 H Lymphocytes % 7.5 L Monocytes % 6.7 Eosinophils % 6.3 Basophils % 0.6 Nucleated Red Blood Cells % 0.0 Neutrophils # 7.7 H Lymphocytes # 0.7 L Monocytes # 0.7 Eosinophils # 0.6 H Basophils # 0.1 Nucleated Red Blood Cells # 0.0 Sodium Level 147 H Potassium Level 2.9 *L Chloride Level 107 Carbon Dioxide Level 32 #H Anion Gap 11 # Blood Urea Nitrogen 9 Creatinine 0.57 L Glucose Level 99 Calcium Level 7.8 L Phosphorus Level 2.8 Magnesium Level 2.0 Medications Medications Current Medications Gabapentin (Neurontin) 600 mg TID PO Last administered on 01/11/17 20:36; Admin Dose 600 MG; Start 12/31/16 at 09:00 Acetaminophen (Tylenol Tab) 650 mg Q4H PRN PO pain/fever Last administered on 01/11/17 07:46; Admin Dose 650 MG; Start 12/31/16 at 01:00 Hydralazine HCl (Apresoline) 25 mg Q6H PRN PO sbp>160; Start 12/31/16 at 01:00 Enalaprilat (Vasotec Iv) 1.25 mg Q6H PRN IV sbp>160; Start 12/31/16 at 01:00 Ondansetron HCl (Zofran Inj) 4 mg Q4H PRN IV nausea; Start 12/31/16 at 01:00 Hydralazine HCl 10 mg 10 mg Q4H PRN IV ELEVATED SYSTOLIC BP Last administered on 01/10/17 15:04; Admin Dose 10 MG; Start 12/31/16 at 05:30 Fentanyl 100 ml @ 2.5 mls/hr TITRATE IV Last administered on 01/12/17 03:15 ; Admin Dose 10 MLS/HR; Start 12/31/16 at 16:30 Midazolam HCl 50 ml @ 1 mls/hr TITRATE IV Last administered on 01/12/17 06:24 ; Admin Dose 10 MLS/HR; Start 12/31/16 at 16:30 Cefepime HCl 50 ml @ 100 mls/hr Q12 IVPB Last administered on 01/11/17 20:36 ; Admin Dose 100 MLS/HR; Start 12/31/16 at 20:00 Vecuronium [place]/Dextrose (Vecuronium [place]/D5W) 100 ml @ 6.03 mls/hr TITRATE IV Last administered on 01/03/17 04:07; Admin Dose 6.03 MLS/HR; Start 01/01/17 at 06:00 Labetalol HCl (Labetalol) 10 mg Q4H PRN IV SBP GREATER THAN 160 Last administered on 01/10/17 22:33; Admin Dose 10 MG; Start 01/01/17 at 12:00 IV Flush (NS 10 ml) 10 ml PRN PRN IV IV PROTOCOL; Start 01/02/17 at 17:00 Lorazepam (Ativan) 2 mg Q2H PRN IV PRN Agitation. Last administered on 14:44; Admin Dose 2 MG; Start 01/04/17 at 09:00 Pantoprazole 40 mg 40 mg BID@06,18 IV Last administered on 01/12/17 05:34; Admin Dose 40 MG; Start 01/06/17 at 09:30 Propofol (Diprivan) 100 ml @ 3.537 mls/ hr Q12H IV Last administered on 08:42; Admin Dose 35.37 MLS/HR; Start 01/10/17 at 09:30 Furosemide (Lasix) 20 mg DAILY IV Last administered on 01/11/17 08:04; Admin Dose 20 MG; Start 01/10/17 at 14:30 Metoclopramide HCl (Reglan) 10 mg Q6 IV Last administered on 01/12/17 05:34; Admin Dose 10 MG; Start 01/11/17 at 12:00 Haloperidol 5 mg 5 mg Q8 PRN IV AGITATION Last administered on 01/11/17 19:34 ; Admin Dose 5 MG; Start 01/11/17 at 11:30 Vancomycin HCl/ Sodium Chloride (Vancocin/NS) 500 ml @ 125 mls/hr Q8H IVPB Last administered on 01/12/17 01:52; Admin Dose 125 MLS/HR; Start 01/11/17 at 18:00 Valproate Sodium (Depakene Liquid Cup) 500 mg QHS NGT Last administered on 22:27; Admin Dose 500 MG; Start 01/11/17 at 21:00 Carbamazepine 400 mg 400 mg QHS NGT Last administered on 01/11/17t 22:28; Admin Dose 400 MG; Start 01/11/17 at 21:00 Potassium Chloride (KCl 40 MEQ/250 ML NS) 250 ml @ 62.5 mls/hr ONCE ONCE IVPB ; Start 01/12/17 at 10:00; Stop 01/12/17 at 13:59 TRENT NEWMAN Jan 12, 2017 09:51
[2017-01-12] MEDS ORDERED: POTASSIUM CHLORIDE 250 ML IVPB ONE (10:00)
[2017-01-12] MEDS: CEFEPIME 1GM/50 ML (PMX) 50 ML IVPB SCH ×2 (10:01→21:10)
[2017-01-12] MEDS: FUROSEMIDE 20 MG INJ IV SCH (10:01)
[2017-01-12] MEDS: GABAPENTIN 300 MG CAP PO SCH ×3 (10:01→21:11)
--- NOTE | 2017-01-12 10:49 | PN ---
Date/Time of Note Date/Time of Note DATE: 01/12/17 TIME: 10:46 Assessment/Plan VTE Prophylaxis VTE Prophylaxis Intervention: SCD's Lines/Catheters IV Catheter Type (from Nrs): PICC Line (Medication medication) Central line still needed: Yes (Medication) Urinary Cath still in place: Yes Reason Cath still needed: other (indicate) (Monitor output) Assessment/Plan Chief Complaint/Hosp Course Assessment: Anemia- without significant change Severe encephalopathy Likely secondary to drug use Acute Respiratory failure Intubated and sedated Plan: Continue to monitor h/h Continue PPI therapy Will proceed with EGD if warranted No evidence of GI bleed at this time Plan to start TF today- will continue to monitor Continue all supportive care Patient seen in collaboration with Dr. Miranda Subjective: Course reviewed with nursing staff Patient interviewed and examined All labs, imaging and other results reviewed The patient remains sedated and intubated. Maxed out on all drips. Bowels are hypoactive. KUB negative for obstruction.Pt on reglan Plan to start TF today- will monitor if patient can tolerate Hgb without significant change Hgb remians between 7.6- 8.6- no evidence of GI bleed Will continue to monitor at this time Exam Constitutional: well developed, sedated and intubated Psych: unable to assess Head: atraumatic, normocephalic Eyes: EOMI, nl conjunctiva, nl lids ENMT: nl external ears & nose, nl lips & teeth, nl nasal mucosa & septum Neck: non-tender, supple Respiratory: Bilateral Rales Cardiovascular: nl pulses, regular rate and rhythm Gastrointestinal: hypoactive bowel sounds, soft Problems: Exam/Review of Systems Vital Signs Vitals Vital Signs Date Time Temp Pulse Resp B/P Pulse Ox O2 Delivery O2 Flow Rate FiO2 01/12/17 10:00 78 24 129/74 100 Mechanical Ventilator 01/12/17 08:00 99.0 01/12/17 05:24 40 Intake and Output 01/11/17 01/11/17 01/12/17 15:00 23:00 07:00 Intake Total 992.96 ml 352.22 ml 942.96 ml Output Total 1725 ml 1845 ml 595 ml Balance -732.04 ml -1492.78 ml 347.96 ml Results Result Diagram: 01/12/17 0400 01/12/17 0400 Results 24 hrs Laboratory Tests Test 01/11/17 11:26 01/12/17 04:00 Creatine Kinase 151 Creatine Kinase Index 0.8 Creatinine Kinase MB (Mass) 1.17 Troponin I 0.029 White Blood Count 9.9 # Red Blood Count 2.56 L Hemoglobin 7.5 L Hematocrit 23.2 L Mean Corpuscular Volume 90.6 Mean Corpuscular Hemoglobin 29.3 Mean Corpuscular Hemoglobin Concent 32.3 Red Cell Distribution Width 14.1 Platelet Count 298 Mean Platelet Volume 11.7 H Neutrophils % 78.1 H Lymphocytes % 7.5 L Monocytes % 6.7 Eosinophils % 6.3 Basophils % 0.6 Nucleated Red Blood Cells % 0.0 Neutrophils # 7.7 H Lymphocytes # 0.7 L Monocytes # 0.7 Eosinophils # 0.6 H Basophils # 0.1 Nucleated Red Blood Cells # 0.0 Sodium Level 147 H Potassium Level 2.9 *L Chloride Level 107 Carbon Dioxide Level 32 #H Anion Gap 11 # Blood Urea Nitrogen 9 Creatinine 0.57 L Glucose Level 99 Calcium Level 7.8 L Phosphorus Level 2.8 Magnesium Level 2.0 Medications Medications Current Medications Gabapentin (Neurontin) 600 mg TID PO Last administered on 01/12/17 10:01; Admin Dose 600 MG; Start 12/31/16 at 09:00 Acetaminophen (Tylenol Tab) 650 mg Q4H PRN PO pain/fever Last administered on 01/11/17 07:46; Admin Dose 650 MG; Start 12/31/16 at 01:00 Hydralazine HCl (Apresoline) 25 mg Q6H PRN PO sbp>160; Start 12/31/16 at 01:00 Enalaprilat (Vasotec Iv) 1.25 mg Q6H PRN IV sbp>160; Start 12/31/16 at 01:00 Ondansetron HCl (Zofran Inj) 4 mg Q4H PRN IV nausea; Start 12/31/16 at 01:00 Hydralazine HCl 10 mg 10 mg Q4H PRN IV ELEVATED SYSTOLIC BP Last administered on 01/10/17 15:04; Admin Dose 10 MG; Start 12/31/16 at 05:30 Fentanyl 100 ml @ 2.5 mls/hr TITRATE IV Last administered on 01/12/17 03:15 ; Admin Dose 10 MLS/HR; Start 12/31/16 at 16:30 Midazolam HCl 50 ml @ 1 mls/hr TITRATE IV Last administered on 01/12/17 10:12 ; Admin Dose 9 MLS/HR; Start 12/31/16 at 16:30 Cefepime HCl 50 ml @ 100 mls/hr Q12 IVPB Last administered on 01/12/17 10:01 ; Admin Dose 100 MLS/HR; Start 12/31/16 at 20:00 Vecuronium [place]/Dextrose (Vecuronium [place]/D5W) 100 ml @ 6.03 mls/hr TITRATE IV Last administered on 01/03/17 04:07; Admin Dose 6.03 MLS/HR; Start 01/01/17 at 06:00 Labetalol HCl (Labetalol) 10 mg Q4H PRN IV SBP GREATER THAN 160 Last administered on 01/10/17 22:33; Admin Dose 10 MG; Start 01/01/17 at 12:00 IV Flush (NS 10 ml) 10 ml PRN PRN IV IV PROTOCOL; Start 01/02/17 at 17:00 Lorazepam (Ativan) 2 mg Q2H PRN IV PRN Agitation. Last administered on 14:44; Admin Dose 2 MG; Start 01/04/17 at 09:00 Pantoprazole 40 mg 40 mg BID@06,18 IV Last administered on 01/12/17 05:34; Admin Dose 40 MG; Start 01/06/17 at 09:30 Propofol (Diprivan) 100 ml @ 3.537 mls/ hr Q12H IV Last administered on 08:42; Admin Dose 35.37 MLS/HR; Start 01/10/17 at 09:30 Furosemide (Lasix) 20 mg DAILY IV Last administered on 01/12/17 10:01; Admin Dose 20 MG; Start 01/10/17 at 14:30 Metoclopramide HCl (Reglan) 10 mg Q6 IV Last administered on 01/12/17 05:34; Admin Dose 10 MG; Start 01/11/17 at 12:00 Haloperidol 5 mg 5 mg Q8 PRN IV AGITATION Last administered on 01/11/17 19:34 ; Admin Dose 5 MG; Start 01/11/17 at 11:30; Stop 01/12/17 at 14:00 Vancomycin HCl/ Sodium Chloride (Vancocin/NS) 500 ml @ 125 mls/hr Q8H IVPB Last administered on 01/12/17 01:52; Admin Dose 125 MLS/HR; Start 01/11/17 at 18:00 Valproate Sodium (Depakene Liquid Cup) 500 mg QHS NGT Last administered on 22:27; Admin Dose 500 MG; Start 01/11/17 at 21:00 Carbamazepine 400 mg 400 mg QHS NGT Last administered on 01/11/17 22:28; Admin Dose 400 MG; Start 01/11/17 at 21:00 Potassium Chloride (KCl 40 MEQ/250 ML NS) 250 ml @ 62.5 mls/hr ONCE ONCE IVPB ; Start 01/12/17 at 10:00; Stop 01/12/17 at 13:59 Haloperidol (Haldol) 5 mg Q6 IV ; Start 01/12/17 at 12:00 Miscellaneous Information (*Rx Drug Level Order Reminder*) 1 ONCE ONCE XX ; Start 01/13/17 at 01:00; Stop 01/13/17 at 01:01 JULY MCKENNA Jan 12, 2017 10:49
[2017-01-12] MEDS: HALOPERIDOL 5 MG INJ IV SCH ×3 (10:51→23:32)
--- NOTE | 2017-01-12 11:30 | CONS ---
Date/Time of Note Date/Time of Note DATE: 01/12/17 TIME: 11:29 Consult Date/Type/Reason Admit Date/Time Dec 31, 2016 at 00:30 Initial Consult Date 12/31/16 Type of Consultation: Pulm/CCM Subjective Patient remains intubated on mechanical ventilation continues multiple drips for sedation and pain control. Objective Vital Signs Date Time Temp Pulse Resp B/P Pulse Ox O2 Delivery O2 Flow Rate FiO2 01/12/17 10:00 78 24 129/74 100 Mechanical Ventilator 01/12/17 08:00 99.0 01/12/17 05:24 40 Intake and Output 01/11/17 01/11/17 01/12/17 15:00 23:00 07:00 Intake Total 992.96 ml 352.22 ml 942.96 ml Output Total 1725 ml 1845 ml 595 ml Balance -732.04 ml -1492.78 ml 347.96 ml Exam PHYSICAL EXAMINATION GENERAL: Well-nourished well-developed gentleman orally intubated on mechanical ventilation VITAL SIGNS: see below. HEENT: Pupils equal, round, and reactive to light. CARDIAC: S1, S2, 1/6 systolic ejection murmur CHEST: Diminished air entry bilaterally. ABDOMEN: Mildly distended. Bowel sounds present no guarding or rebound EXTREMITIES: No cyanosis, clubbing edema +1 NEUROLOGIC: Generalized weakness Results/Medications Result Diagram: 01/12/17 0400 01/12/17 0400 Results 24 hrs Chest x-ray consistent with ARDS. Laboratory Tests Test 01/12/17 04:00 White Blood Count 9.9 # Red Blood Count 2.56 L Hemoglobin 7.5 L Hematocrit 23.2 L Mean Corpuscular Volume 90.6 Mean Corpuscular Hemoglobin 29.3 Mean Corpuscular Hemoglobin Concent 32.3 Red Cell Distribution Width 14.1 Platelet Count 298 Mean Platelet Volume 11.7 H Neutrophils % 78.1 H Lymphocytes % 7.5 L Monocytes % 6.7 Eosinophils % 6.3 Basophils % 0.6 Nucleated Red Blood Cells % 0.0 Neutrophils # 7.7 H Lymphocytes # 0.7 L Monocytes # 0.7 Eosinophils # 0.6 H Basophils # 0.1 Nucleated Red Blood Cells # 0.0 Sodium Level 147 H Potassium Level 2.9 *L Chloride Level 107 Carbon Dioxide Level 32 #H Anion Gap 11 # Blood Urea Nitrogen 9 Creatinine 0.57 L Glucose Level 99 Calcium Level 7.8 L Phosphorus Level 2.8 Magnesium Level 2.0 Medications Current Medications Gabapentin (Neurontin) 600 mg TID PO Last administered on 01/12/17 10:01; Admin Dose 600 MG; Start 12/31/16 at 09:00 Acetaminophen (Tylenol Tab) 650 mg Q4H PRN PO pain/fever Last administered on 01/11/17 07:46; Admin Dose 650 MG; Start 12/31/16 at 01:00 Hydralazine HCl (Apresoline) 25 mg Q6H PRN PO sbp>160; Start 12/31/16 at 01:00 Enalaprilat (Vasotec Iv) 1.25 mg Q6H PRN IV sbp>160; Start 12/31/16 at 01:00 Ondansetron HCl (Zofran Inj) 4 mg Q4H PRN IV nausea; Start 12/31/16 at 01:00 Hydralazine HCl 10 mg 10 mg Q4H PRN IV ELEVATED SYSTOLIC BP Last administered on 01/10/17 15:04; Admin Dose 10 MG; Start 12/31/16 at 05:30 Fentanyl 100 ml @ 2.5 mls/hr TITRATE IV Last administered on 01/12/17 03:15 ; Admin Dose 10 MLS/HR; Start 12/31/16 at 16:30 Midazolam HCl 50 ml @ 1 mls/hr TITRATE IV Last administered on 01/12/17 10:12 ; Admin Dose 9 MLS/HR; Start 12/31/16 at 16:30 Cefepime HCl 50 ml @ 100 mls/hr Q12 IVPB Last administered on 01/12/17 10:01 ; Admin Dose 100 MLS/HR; Start 12/31/16 at 20:00 Vecuronium [place]/Dextrose (Vecuronium [place]/D5W) 100 ml @ 6.03 mls/hr TITRATE IV Last administered on 01/03/17 04:07; Admin Dose 6.03 MLS/HR; Start 01/01/17 at 06:00 Labetalol HCl (Labetalol) 10 mg Q4H PRN IV SBP GREATER THAN 160 Last administered on 01/10/17 22:33; Admin Dose 10 MG; Start 01/01/17 at 12:00 IV Flush (NS 10 ml) 10 ml PRN PRN IV IV PROTOCOL; Start 01/02/17 at 17:00 Lorazepam (Ativan) 2 mg Q2H PRN IV PRN Agitation. Last administered on 14:44; Admin Dose 2 MG; Start 01/04/17 at 09:00 Pantoprazole 40 mg 40 mg BID@06,18 IV Last administered on 01/12/17 05:34; Admin Dose 40 MG; Start 01/06/17 at 09:30 Propofol (Diprivan) 100 ml @ 3.537 mls/ hr Q12H IV Last administered on 10:52; Admin Dose 31.833 MLS/HR; Start 01/10/17 at 09:30 Furosemide (Lasix) 20 mg DAILY IV Last administered on 01/12/17 10:01; Admin Dose 20 MG; Start 01/10/17 at 14:30 Metoclopramide HCl (Reglan) 10 mg Q6 IV Last administered on 01/12/17 05:34; Admin Dose 10 MG; Start 01/11/17 at 12:00 Haloperidol 5 mg 5 mg Q8 PRN IV AGITATION Last administered on 01/11/17 19:34 ; Admin Dose 5 MG; Start 01/11/17 at 11:30; Stop 01/12/17 at 14:00 Vancomycin HCl/ Sodium Chloride (Vancocin/NS) 500 ml @ 125 mls/hr Q8H IVPB Last administered on 01/12/17 10:52; Admin Dose 125 MLS/HR; Start 01/11/17 at 18:00 Valproate Sodium (Depakene Liquid Cup) 500 mg QHS NGT Last administered on 22:27; Admin Dose 500 MG; Start 01/11/17 at 21:00 Carbamazepine 400 mg 400 mg QHS NGT Last administered on 01/11/17 22:28; Admin Dose 400 MG; Start 01/11/17 at 21:00 Potassium Chloride (KCl 40 MEQ/250 ML NS) 250 ml @ 62.5 mls/hr ONCE ONCE IVPB ; Start 01/12/17 at 10:00; Stop 01/12/17 at 13:59 Haloperidol (Haldol) 5 mg Q6 IV Last administered on 10/24/17at 10:51; Admin Dose 5 MG; Start 01/12/17 at 12:00 Miscellaneous Information (*Rx Drug Level Order Reminder*) 1 ONCE ONCE XX ; Start 01/13/17 at 01:00; Stop 01/13/17 at 01:01 Assessment/Plan Chief Complaint/Hosp Course IMP: 1. Hypoxic respiratory failure/Vent Dependence 2. Acute Lung Injury/ARDS 3. History of drug overdose 4. History of psychiatric disease 5. Likely ALEX 6. Anemia RECS: 1. Decrease sedatives--> D/C precedex, trial of Haldol 2. Vent--> change to VC+; rate 20; Vt 500; PEEP 7 3. d/c iVF replace potassium. 4. TF/Free H20 5. Lasix daily Overall prognosis remains guarded. Problems: BRIANNA SAAVEDRA MD, [facility] Jan 12, 2017 11:30
--- NOTE | 2017-01-12 12:59 | RADRPT ---
PROCEDURE: XR Chest. CLINICAL INDICATION: Respiratory failure TECHNIQUE: An AP view of the chest was obtained. COMPARISON: Chest x-ray dated 01/11/2017 FINDINGS: The endotracheal tube tip is approximately 4.3 cm above the villa. The tip of the enteric tube ex tends below the left diaphragm. There is a right upper extremity PICC line with tip in the mid SVC. There are diffuse bilateral interstitial opacities with small bilateral pleural effusions. No pneu mothorax is seen. The cardiomediastinal silhouette is within normal limits for size. The osseous s tructures are unremarkable. IMPRESSION: 1. Diffuse bilateral interstitial opacities, may reflect pulmonary edema and / or pneumonia. There is increased opacification of the left lung base when compared to the prior examination. 2. Small bilateral pleural effusions, also mildly increased from prior examination. 3. Tubes and lines, as described above. RPTAT: HH .Verona Nichole MD, MD Date Time Electronically viewed and signed by .Verona Nichole MD, on 01/12/2017 12:58 .G/
[2017-01-12] MEDS: VALPROIC ACID LIQUID CUP 250 MG/5 ML CUP NGT SCH (21:11)
[2017-01-12] MEDS: carBAMAZEpine SUSP 100 MG/5 ML NGT SCH (23:32)
[2017-01-13] VITALS (58 sets, daily range): BP systolic 106–190; BP diastolic 63–124; PULSE 67–124; RESP 15–28
[2017-01-13] MEDS: PROPOFOL 100 ML IV SCH ×7 (01:15→21:18)
[2017-01-13] MEDS: MIDAZOLAM (DRIP) 50 mg/50 mL 50 ML IV SCH ×4 (02:12→19:16)
[2017-01-13] MEDS: VANCOMYCIN 2 GM in SOD CHLORIDE 0.9% 500 ML IVPB SCH ×3 (02:13→17:43)
[2017-01-13 04:56] LABS: BASOPHIL # 0.1 10^3/ul (0.0-0.1); BASOPHILS % 1.1 % (0.0-2.0); EOSINOPHILS # 0.9 10^3/ul (0.0-0.5); EOSINOPHILS % 13.9 % (0.0-7.0); HEMATOCRIT 23.8 % (42.0-52.0); HEMOGLOBIN 7.7 g/dl (14.0-18.0); LYMPHOCYTES # 0.8 10^3/ul (0.8-2.9); LYMPHOCYTES % 12.1 % (15.0-51.0); MEAN CORPUSCULAR HEMOGLOBIN 29.3 pg (29.0-33.0); MEAN CORPUSCULAR HGB CONC 32.4 g/dl (32.0-37.0); MEAN CORPUSCULAR VOLUME 90.5 fl (82.0-101.0); MEAN PLATELET VOLUME 11.1 fl (7.4-10.4); MONOCYTE # 0.6 10^3/ul (0.3-0.9); MONOCYTES % 8.4 % (0.0-11.0); NEUTROPHIL # 4.1 10^3/ul (1.6-7.5); NEUTROPHILS % 63.4 % (39.0-77.0); PLATELET COUNT 315 10^3/UL (140-415); RED BLOOD COUNT 2.63 10^6/ul (4.70-6.10); RED CELL DISTRIBUTION WIDTH 14.5 % (11.5-14.5); WHITE BLOOD COUNT 6.5 10^3/ul (4.8-10.8)
[2017-01-13 05:48] LABS: PHOSPHORUS 4.2 mg/dl (2.5-4.9)
[2017-01-13] MEDS: PANTOPRAZOLE 40 MG INJ IV SCH ×2 (05:55→16:59)
[2017-01-13] MEDS: HALOPERIDOL 5 MG INJ IV SCH ×4 (05:56→23:24)
[2017-01-13] MEDS: METOCLOPRAMIDE 10 MG INJ IV SCH ×4 (05:56→23:24)
[2017-01-13 06:00] LABS: ALBUMIN 2.6 g/dl (3.3-4.9); ALBUMIN/GLOBULIN RATIO 0.72; BILIRUBIN,INDIRECT 0.2 mg/dl (0-1.1); BILIRUBIN,TOTAL 0.2 mg/dl (0.2-1.3); CREATININE 0.64 mg/dl (0.61-1.24); TOTAL PROTEIN 6.2 g/dl (6.1-8.1)
[2017-01-13 06:22] LABS: POTASSIUM 2.9 mmol/L (3.5-5.1)
[2017-01-13] MEDS ORDERED: ROCURONIUM 50 MG INJ ONE (07:00)
[2017-01-13] MEDS ORDERED: ETOMIDATE 20 MG INJ ONE (07:00)
[2017-01-13] MEDS: POTASSIUM CHLORIDE 50 ML IVPB PRN ×3 (07:27→09:51)
[2017-01-13 08:20] LABS: AADO2 Arterial 134.5 mmHg (7.0-24.0); Allen Test ACCEPTAB; Arterial COHb 0.3 % (0.0-3.0); Arterial Fraction of Oxyhgb 96.3 % (93.0-99.0); Arterial HCO3 32.9 mmol/L (22.0-26.0); Arterial MetHb 0.3 % (0.0-1.5); Arterial Total Hemglobin 8.5 g/dl (12.0-18.0); MODE VENT - AC
[2017-01-13] MEDS: FENTAnyl (DRIP) 1000 mcg/100mL 100 ML IV SCH ×2 (08:34→17:42)
[2017-01-13] MEDS: CEFEPIME 1GM/50 ML (PMX) 50 ML IVPB SCH ×2 (09:00→20:15)
[2017-01-13] MEDS: FUROSEMIDE 20 MG INJ IV SCH (09:01)
[2017-01-13] MEDS: GABAPENTIN 300 MG CAP PO SCH ×3 (09:01→20:16)
--- NOTE | 2017-01-13 09:28 | CONS ---
Date/Time of Note Date/Time of Note DATE: 01/13/17 TIME: 09:27 Consult Date/Type/Reason Admit Date/Time Dec 31, 2016 at 00:30 Initial Consult Date 12/31/16 Type of Consultation: Pulm/CCM Subjective Still has significant agitation. Remains intubated on mechanical ventilation. Objective Vital Signs Date Time Temp Pulse Resp B/P Pulse Ox O2 Delivery O2 Flow Rate FiO2 01/13/17 08:56 74 22 98 40 01/13/17 07:30 110/64 01/13/17 07:00 Mechanical Ventilator 01/13/17 04:00 98.5 Intake and Output 01/12/17 01/12/17 01/13/17 15:00 23:00 07:00 Intake Total 927.65 ml 1792.96 ml 762.59 ml Output Total 2375 ml 525 ml 550 ml Balance -1447.35 ml 1267.96 ml 212.59 ml Exam PHYSICAL EXAMINATION GENERAL: Well-nourished well-developed gentleman orally intubated on mechanical ventilation VITAL SIGNS: see below. HEENT: Pupils equal, round, and reactive to light. CARDIAC: S1, S2, 1/6 systolic ejection murmur CHEST: Diminished air entry bilaterally. ABDOMEN: Mildly distended. Bowel sounds present no guarding or rebound EXTREMITIES: No cyanosis, clubbing edema +1 NEUROLOGIC: Generalized weakness Results/Medications Result Diagram: 01/13/17 0430 01/13/17 0430 Results 24 hrs Laboratory Tests Test 01/13/17 01:00 01/13/17 04:30 01/13/17 07:00 Vancomycin Level Trough 14.8 White Blood Count 6.5 # Red Blood Count 2.63 L Hemoglobin 7.7 L Hematocrit 23.8 L Mean Corpuscular Volume 90.5 Mean Corpuscular Hemoglobin 29.3 Mean Corpuscular Hemoglobin Concent 32.4 Red Cell Distribution Width 14.5 Platelet Count 315 Mean Platelet Volume 11.1 H Neutrophils % 63.4 Lymphocytes % 12.1 L Monocytes % 8.4 Eosinophils % 13.9 H Basophils % 1.1 Nucleated Red Blood Cells % 0.0 Neutrophils # 4.1 Lymphocytes # 0.8 Monocytes # 0.6 Eosinophils # 0.9 H Basophils # 0.1 Nucleated Red Blood Cells # 0.0 Sodium Level 147 H Potassium Level 2.9 *L Chloride Level 107 Carbon Dioxide Level 34 H Anion Gap 9 Blood Urea Nitrogen 11 Creatinine 0.64 Glucose Level 109 Calcium Level 8.0 L Phosphorus Level 4.2 Magnesium Level 2.0 Total Bilirubin 0.2 Direct Bilirubin 0.00 Indirect Bilirubin 0.2 Aspartate Amino Transf (AST/SGOT) 50 H Alanine Aminotransferase (ALT/SGPT) 60 Alkaline Phosphatase 334 H Total Protein 6.2 Albumin 2.6 L Globulin 3.60 H Albumin/Globulin Ratio 0.72 Blood Gas Specimen Source Blood arterial Arterial Blood Date Drawn 01/13/2017 8:00:57 AM Arterial Blood pH (Temp corrected) 7.447 Arterial Blood pCO2 (Temp correct) 48.8 H Arterial Blood pO2 (Temp corrected) 94.6 Arterial Blood HCO3 32.9 H Arterial Blood Base Excess 8.0 H Arterial Blood Oxygen Saturation 96.9 [place] Test ACCEPTAB Arterial Blood Gas Puncture Site Right Radial Arterial Blood Carboxyhemoglobin 0.3 Arterial Blood Methemoglobin 0.3 Blood Gas A-a O2 Differential 134.5 H Oxyhemoglobin Percent 96.3 Total Hemoglobin 8.5 L Blood Gas Temperature 37.0 Blood Gas Respiration Rate 20.0 Blood Gas Actual Respiration Rate 24 Blood Gas Modality VENT - AC FiO2 40.0 Blood Gas Tidal Volume 500.0 Blood Gas Low PEEP Setting 7.0 Blood Gas Notified Whom JLD Blood Gas Notified Time 01/13/2017 8:20:41 AM Medications Current Medications Gabapentin (Neurontin) 600 mg TID PO Last administered on 01/13/17 09:01; Admin Dose 600 MG; Start 12/31/16 at 09:00 Acetaminophen (Tylenol Tab) 650 mg Q4H PRN PO pain/fever Last administered on 01/11/17 07:46; Admin Dose 650 MG; Start 12/31/16 at 01:00 Hydralazine HCl (Apresoline) 25 mg Q6H PRN PO sbp>160; Start 12/31/16 at 01:00 Enalaprilat (Vasotec Iv) 1.25 mg Q6H PRN IV sbp>160; Start 12/31/16 at 01:00 Ondansetron HCl (Zofran Inj) 4 mg Q4H PRN IV nausea; Start 12/31/16 at 01:00 Hydralazine HCl 10 mg 10 mg Q4H PRN IV ELEVATED SYSTOLIC BP Last administered on 01/10/17 15:04; Admin Dose 10 MG; Start 12/31/16 at 05:30 Fentanyl 100 ml @ 2.5 mls/hr TITRATE IV Last administered on 01/13/17 08:34 ; Admin Dose 10 MLS/HR; Start 12/31/16 at 16:30 Midazolam HCl 50 ml @ 1 mls/hr TITRATE IV Last administered on 01/13/17 08:33 ; Admin Dose 10 MLS/HR; Start 12/31/16 at 16:30 Cefepime HCl 50 ml @ 100 mls/hr Q12 IVPB Last administered on 01/13/17 09:00 ; Admin Dose 100 MLS/HR; Start 12/31/16 at 20:00 Vecuronium [place]/Dextrose (Vecuronium [place]/D5W) 100 ml @ 6.03 mls/hr TITRATE IV Last administered on 01/03/17 04:07; Admin Dose 6.03 MLS/HR; Start 01/01/17 at 06:00 Labetalol HCl (Labetalol) 10 mg Q4H PRN IV SBP GREATER THAN 160 Last administered on 01/10/17 22:33; Admin Dose 10 MG; Start 01/01/17 at 12:00 IV Flush (NS 10 ml) 10 ml PRN PRN IV IV PROTOCOL; Start 01/02/17 at 17:00 Lorazepam (Ativan) 2 mg Q2H PRN IV PRN Agitation. Last administered on 14:44; Admin Dose 2 MG; Start 01/04/17 at 09:00 Pantoprazole 40 mg 40 mg BID@06,18 IV Last administered on 01/13/17 05:55; Admin Dose 40 MG; Start 01/06/17 at 09:30 Propofol (Diprivan) 100 ml @ 3.537 mls/ hr Q12H IV Last administered on 08:33; Admin Dose 35.37 MLS/HR; Start 01/10/17 at 09:30 Furosemide (Lasix) 20 mg DAILY IV Last administered on 01/13/17 09:01; Admin Dose 20 MG; Start 01/10/17 at 14:30 Metoclopramide HCl 10 mg 10 mg Q6 IV Last administered on 01/13/17 05:56; Admin Dose 10 MG; Start 01/11/17 at 12:00 Vancomycin HCl/ Sodium Chloride (Vancocin/NS) 500 ml @ 125 mls/hr Q8H IVPB Last administered on 01/13/17 02:13; Admin Dose 125 MLS/HR; Start 01/11/17 at 18:00 Valproate Sodium (Depakene Liquid Cup) 500 mg QHS NGT Last administered on 21:11; Admin Dose 500 MG; Start 01/11/17 at 21:00 Haloperidol (Haldol) 5 mg Q6 IV Last administered on 01/13/17 05:56; Admin Dose 5 MG; Start 01/12/17 at 12:00 Carbamazepine (Tegretol Susp) 400 mg QHS NGT Last administered on 01/12/17 23 :32; Admin Dose 400 MG; Start 01/12/17 at 21:00 Assessment/Plan Chief Complaint/Hosp Course IMP: 1. Hypoxic respiratory failure/Vent Dependence 2. Acute Lung Injury/ARDS 3. History of drug overdose 4. History of psychiatric disease 5. Likely ALEX 6. Anemia RECS: 1. Decrease sedatives--> D/C precedex, trial of Haldol CPAP trial if patient remains stable on lower doses of sedation. 2. Vent--> change to VC+; rate 20; Vt 500; PEEP 7 3. d/c iVF replace potassium. 4. TF/Free H20 5. Lasix daily Overall prognosis remains guarded. Patient may end up requiring tracheostomy. Problems: BRIANNA S[facility]EDRA [facility], [facility] Jan 13, 2017 09:28
--- NOTE | 2017-01-13 09:59 | PN ---
Date/Time of Note Date/Time of Note DATE: 01/13/17 TIME: 09:36 Assessment/Plan VTE Prophylaxis VTE Prophylaxis Intervention: SCD's Lines/Catheters IV Catheter Type (from Nrsg): PICC Line (Medication medication) Central line still needed: Yes (For IV access) Urinary Cath still in place: Yes Reason Cath still needed: other (indicate) (While intubated and sedated) Assessment/Plan Assessment/Plan 46 yo male with: 1. Severe encephalopathy 2ry to drug abuse likely Bath salts and/or synthetic marijuana. Patient still with episodes of agitation and still intubated for the past 11 days now, sedated now with propofol, fentanyl and Versed for sedation, off paralytics. Planning on titrating propofol off first Likely encephalopathy secondary to drug use, cannabinoid synthetics and possibly bath salts. He also does have a history of bipolar disorder but he is levels are low so may be noncompliant with his outpatient antipsychotics and medications CT head 2 since admission are both wnl, EEG showing encephalopathy as expected while patient was on for sedating agent and paralytics. Continue attempts at titrating sedation down. 2. Acute respiratory Failure 2ry to severe Encephalopathy from Drug overuse, intubated, sedated and paralysed. Also likely aspirated and with aspiration PNA vs pneumonitis. Now with concerns for ARDS or pulmonary On cefepime, vancomycin added since WBC has gone up this weekend and chest x- ray looked worse. On Lasix given the chest x-ray findings of pulmonary edema versus ARDS. WBC down to normal 2 days Still on FiO2 of 40% and PEEP of 7 Still on fentanyl, propofol, and Versed for sedation, also getting as needed Ativan but hopefully will be able to titrate at least propofol to off. 3. Bipolar disorder: Likely noncompliant with psychiatric medications. Medication resumed via NG tube 4. Right foot Lisfranc fracture: Pain control and ? splint 5. Anemia: Hemoglobin variable but 7.7 today. No signs of active bleeding. GI following. Lovenox discontinued, SCDs to lower extremities. KUB/abdominal x-ray few days ago with no signs of obstruction, on Reglan up to 10 mg q6 and proton pump inhibitors. Tolerating tube feedings so far, hemoglobin is low but stable Blood transfusion as needed. Given lack of consenting next of kin, until we find a close relative, he is being transfused emergently only and getting procedures on an emergency basis. 6. Low-grade temperature, diaphoresis, blood cultures from 01/08 no growth to date. Urine culture from 01/08 no growth to date. Afebrile 2 days and white blood cell count down to normal. Sputum culture pending but patient already on broad coverage with cefepime and vancomycin Cardiac enzymes x1 wnl. 7. Hypokalemia: Replete potassium today, recheck BMP this afternoon for further repletion of potassium. Now on tube feeding. Magnesium level wnl normal. On free water for mild hypernatremia and prerenal azotemia but also being diuresed with increasing dose of Lasix per pulmonary. Prophylaxis: SCDs for DVT prophylaxis, Protonix for GI prophylaxis Disposition: Still in ICU, intubated, sedated, trying to weaning off sedation, remains off paralytics. Patient non-transferable at this time. Meeting with half-sister tomorrow, at 11 AM. Subjective 24 Hr Interval Summary Free Text/Dictation Patient remains on sedation, 40% FiO2, discussed with pulmonary, will DC propofol off today for possible, start weaning off sedation a little further. Plan on meeting with patient's half-sister tomorrow at 11 AM. Exam/Review of Systems Vital Signs Vitals Vital Signs Date Time Temp Pulse Resp B/P Pulse Ox O2 Delivery O2 Flow Rate FiO2 01/13/17 08:56 74 22 98 40 01/13/17 07:30 110/64 01/13/17 07:00 Mechanical Ventilator 01/13/17 04:00 98.5 Intake and Output 01/12/17 01/12/17 01/13/17 15:00 23:00 07:00 Intake Total 927.65 ml 1792.96 ml 762.59 ml Output Total 2375 ml 525 ml 550 ml Balance -1447.35 ml 1267.96 ml 212.59 ml Exam Constitutional: other (Sedated and intubated) Respiratory: diminished breath sounds (Bases bilaterally), other (Mechanical ventilation while on heavy sedation) Cardiovascular: nl pulses, regular rate and rhythm Gastrointestinal: non-tender, other (Tolerating tube feedings), soft Musculoskeletal: other (Right foot Lisfranc fracture) Extremities: normal pulses, other (No edema, clubbing or cyanosis except for right foot) Neurological: other (Sedated and intubated) Results Result Diagram: 01/13/17 0430 01/13/17 0430 Results 24 hrs Laboratory Tests Test 01/13/17 01:00 01/13/17 04:30 01/13/17 07:00 Vancomycin Level Trough 14.8 White Blood Count 6.5 # Red Blood Count 2.63 L Hemoglobin 7.7 L Hematocrit 23.8 L Mean Corpuscular Volume 90.5 Mean Corpuscular Hemoglobin 29.3 Mean Corpuscular Hemoglobin Concent 32.4 Red Cell Distribution Width 14.5 Platelet Count 315 Mean Platelet Volume 11.1 H Neutrophils % 63.4 Lymphocytes % 12.1 L Monocytes % 8.4 Eosinophils % 13.9 H Basophils % 1.1 Nucleated Red Blood Cells % 0.0 Neutrophils # 4.1 Lymphocytes # 0.8 Monocytes # 0.6 Eosinophils # 0.9 H Basophils # 0.1 Nucleated Red Blood Cells # 0.0 Sodium Level 147 H Potassium Level 2.9 *L Chloride Level 107 Carbon Dioxide Level 34 H Anion Gap 9 Blood Urea Nitrogen 11 Creatinine 0.64 Glucose Level 109 Calcium Level 8.0 L Phosphorus Level 4.2 Magnesium Level 2.0 Total Bilirubin 0.2 Direct Bilirubin 0.00 Indirect Bilirubin 0.2 Aspartate Amino Transf (AST/SGOT) 50 H Alanine Aminotransferase (ALT/SGPT) 60 Alkaline Phosphatase 334 H Total Protein 6.2 Albumin 2.6 L Globulin 3.60 H Albumin/Globulin Ratio 0.72 Blood Gas Specimen Source Blood arterial Arterial Blood Date Drawn 01/13/2017 8:00:57 AM Arterial Blood pH (Temp corrected) 7.447 Arterial Blood pCO2 (Temp correct) 48.8 H Arterial Blood pO2 (Temp corrected) 94.6 Arterial Blood HCO3 32.9 H Arterial Blood Base Excess 8.0 H Arterial Blood Oxygen Saturation 96.9 [place] Test ACCEPTAB Arterial Blood Gas Puncture Site Right Radial Arterial Blood Carboxyhemoglobin 0.3 Arterial Blood Methemoglobin 0.3 Blood Gas A-a O2 Differential 134.5 H Oxyhemoglobin Percent 96.3 Total Hemoglobin 8.5 L Blood Gas Temperature 37.0 Blood Gas Respiration Rate 20.0 Blood Gas Actual Respiration Rate 24 Blood Gas Modality VENT - AC FiO2 40.0 Blood Gas Tidal Volume 500.0 Blood Gas Low PEEP Setting 7.0 Blood Gas Notified Whom HARDIKD Blood Gas Notified Time 01/13/2017 8:20:41 AM Imaging Free Text/Dictation PROCEDURE: XR Chest. CLINICAL INDICATION: Respiratory failure TECHNIQUE: An AP view of the chest was obtained. COMPARISON: Chest x-ray dated 01/11/2017 FINDINGS: The endotracheal tube tip is approximately 4.3 cm above the villa. The tip of the enteric tube extends below the left diaphragm. There is a right upper extremity PICC line with tip in the mid SVC. There are diffuse bilateral interstitial opacities with small bilateral pleural effusions. No pneumothorax is seen. The cardiomediastinal silhouette is within normal limits for size. The osseous structures are unremarkable. IMPRESSION: 1. Diffuse bilateral interstitial opacities, may reflect pulmonary edema and / or pneumonia. There is increased opacification of the left lung base when compared to the prior examination. 2. Small bilateral pleural effusions, also mildly increased from prior examination. 3. Tubes and lines, as described above. RPTAT: HH .Verona Nichole MD, MD Date Time Electronically viewed and signed by .Verona Nichole MD, MD on 01/12/2017 12 :58 Medications Medications Current Medications Gabapentin (Neurontin) 600 mg TID PO Last administered on 01/13/17 09:01; Admin Dose 600 MG; Start 12/31/16 at 09:00 Acetaminophen (Tylenol Tab) 650 mg Q4H PRN PO pain/fever Last administered on 01/11/17 07:46; Admin Dose 650 MG; Start 12/31/16 at 01:00 Hydralazine HCl (Apresoline) 25 mg Q6H PRN PO sbp>160; Start 12/31/16 at 01:00 Enalaprilat (Vasotec Iv) 1.25 mg Q6H PRN IV sbp>160; Start 12/31/16 at 01:00 Ondansetron HCl (Zofran Inj) 4 mg Q4H PRN IV nausea; Start 12/31/16 at 01:00 Hydralazine HCl 10 mg 10 mg Q4H PRN IV ELEVATED SYSTOLIC BP Last administered on 01/10/17 15:04; Admin Dose 10 MG; Start 12/31/16 at 05:30 Fentanyl 100 ml @ 2.5 mls/hr TITRATE IV Last administered on 01/13/17 08:34 ; Admin Dose 10 MLS/HR; Start 12/31/16 at 16:30 Midazolam HCl 50 ml @ 1 mls/hr TITRATE IV Last administered on 01/13/17 08:33 ; Admin Dose 10 MLS/HR; Start 12/31/16 at 16:30 Cefepime HCl 50 ml @ 100 mls/hr Q12 IVPB Last administered on 01/13/17 09:00 ; Admin Dose 100 MLS/HR; Start 12/31/16 at 20:00 Vecuronium [place]/Dextrose (Vecuronium [place]/D5W) 100 ml @ 6.03 mls/hr TITRATE IV Last administered on 01/03/17 04:07; Admin Dose 6.03 MLS/HR; Start 01/01/17 at 06:00 Labetalol HCl (Labetalol) 10 mg Q4H PRN IV SBP GREATER THAN 160 Last administered on 01/10/17 22:33; Admin Dose 10 MG; Start 01/01/17 at 12:00 IV Flush (NS 10 ml) 10 ml PRN PRN IV IV PROTOCOL; Start 01/02/17 at 17:00 Lorazepam (Ativan) 2 mg Q2H PRN IV PRN Agitation. Last administered on 14:44; Admin Dose 2 MG; Start 01/04/17 at 09:00 Pantoprazole 40 mg 40 mg BID@06,18 IV Last administered on 01/13/17 05:55; Admin Dose 40 MG; Start 01/06/17 at 09:30 Propofol (Diprivan) 100 ml @ 3.537 mls/ hr Q12H IV Last administered on 08:33; Admin Dose 35.37 MLS/HR; Start 01/10/17 at 09:30 Metoclopramide HCl 10 mg 10 mg Q6 IV Last administered on 01/13/17 05:56; Admin Dose 10 MG; Start 01/11/17 at 12:00 Vancomycin HCl/ Sodium Chloride (Vancocin/NS) 500 ml @ 125 mls/hr Q8H IVPB Last administered on 01/13/17 02:13; Admin Dose 125 MLS/HR; Start 01/11/17 at 18:00 Valproate Sodium (Depakene Liquid Cup) 500 mg QHS NGT Last administered on 21:11; Admin Dose 500 MG; Start 01/11/17 at 21:00 Haloperidol (Haldol) 5 mg Q6 IV Last administered on 01/13/17 05:56; Admin Dose 5 MG; Start 01/12/17 at 12:00 Carbamazepine (Tegretol Susp) 400 mg QHS NGT Last administered on 01/12/17 23 :32; Admin Dose 400 MG; Start 01/12/17 at 21:00 Furosemide (Lasix) 40 mg DAILY IV ; Start 01/14/17 at 09:00; Status [facility] Jan 13, 2017 09:46
[2017-01-13 10:00] LABS: CHOL/HDL RATIO 17.9 RATIO
[2017-01-13] MEDS ORDERED: POTASSIUM CHLORIDE 250 ML IVPB ONE (10:00)
[2017-01-13 12:28] LABS: AADO2 Arterial 160.1 mmHg (7.0-24.0); Allen Test ACCEPTAB; Arterial Base Excess 5.3 mmol/L (-3.0-3); Arterial COHb 0.3 % (0.0-3.0); Arterial Fraction of Oxyhgb 92.2 % (93.0-99.0); Arterial HCO3 30.5 mmol/L (22.0-26.0); Arterial MetHb 0.4 % (0.0-1.5); Arterial Total Hemglobin 10.2 g/dl (12.0-18.0); Blood Gas PS 10; MODE VENT - CPAP
--- NOTE | 2017-01-13 13:06 | PN ---
Date/Time of Note Date/Time of Note DATE: 01/13/17 TIME: 13:03 Assessment/Plan VTE Prophylaxis VTE Prophylaxis Intervention: SCD's Lines/Catheters IV Catheter Type (from Nrsg): PICC Line (Medication medication) Central line still needed: Yes (medication) Urinary Cath still in place: Yes Reason Cath still needed: other (indicate) (monitor output) Assessment/Plan Chief Complaint/Hosp Course Assessment: Anemia- without significant change Severe encephalopathy Likely secondary to drug use Acute Respiratory failure Intubated and sedated Plan: Continue to monitor h/h/ no significant change Continue PPI therapy Will proceed with EGD if warranted No evidence of GI bleed at this time Tolerated TF over night- currently being held- as trying to mover to CPAP Continue all supportive care Patient seen in collaboration with Dr. Miranda Subjective: Course reviewed with nursing staff Patient interviewed and examined All labs, imaging and other results reviewed The patient currently intubated, Tf currently being held, sitter at patients bedside plan to mover to CPAP Exam Constitutional: well developed, sedated and intubated Psych: unable to assess Head: atraumatic, normocephalic Eyes: EOMI, nl conjunctiva, nl lids ENMT: nl external ears & nose, nl lips & teeth, nl nasal mucosa & septum Neck: non-tender, supple Respiratory: Bilateral Rales Cardiovascular: nl pulses, regular rate and rhythm Gastrointestinal: hypoactive bowel sounds, soft Problems: Exam/Review of Systems Vital Signs Vitals Vital Signs Date Time Temp Pulse Resp B/P Pulse Ox O2 Delivery O2 Flow Rate FiO2 01/13/17 12:00 98.2 104 25 181/111 91 CPAP Mechanical Ventilator 01/13/17 11:20 40 Intake and Output 01/12/17 01/12/17 01/13/17 15:00 23:00 07:00 Intake Total 927.65 ml 1792.96 ml 762.59 ml Output Total 2375 ml 525 ml 550 ml Balance -1447.35 ml 1267.96 ml 212.59 ml Results Result Diagram: 01/13/17 0430 01/13/17 0430 Results 24 hrs Laboratory Tests Test 01/13/17 01:00 01/13/17 04:30 01/13/17 07:00 01/13/17 12:00 Vancomycin Level Trough 14.8 White Blood Count 6.5 # Red Blood Count 2.63 L Hemoglobin 7.7 L Hematocrit 23.8 L Mean Corpuscular Volume 90.5 Mean Corpuscular Hemoglobin 29.3 Mean Corpuscular Hemoglobin Concent 32.4 Red Cell Distribution Width 14.5 Platelet Count 315 Mean Platelet Volume 11.1 H Neutrophils % 63.4 Lymphocytes % 12.1 L Monocytes % 8.4 Eosinophils % 13.9 H Basophils % 1.1 Nucleated Red Blood Cells % 0.0 Neutrophils # 4.1 Lymphocytes # 0.8 Monocytes # 0.6 Eosinophils # 0.9 H Basophils # 0.1 Nucleated Red Blood Cells # 0.0 Sodium Level 147 H Potassium Level 2.9 *L Chloride Level 107 Carbon Dioxide Level 34 H Anion Gap 9 Blood Urea Nitrogen 11 Creatinine 0.64 Glucose Level 109 Calcium Level 8.0 L Phosphorus Level 4.2 Magnesium Level 2.0 Total Bilirubin 0.2 Direct Bilirubin 0.00 Indirect Bilirubin 0.2 Aspartate Amino Transf (AST/SGOT) 50 H Alanine Aminotransferase (ALT/SGPT) 60 Alkaline Phosphatase 334 H Total Protein 6.2 Albumin 2.6 L Globulin 3.60 H Albumin/Globulin Ratio 0.72 Triglycerides Level 933 H Cholesterol Level 233 H LDL Cholesterol, Calculated 33 HDL Cholesterol 13 L Cholesterol/HDL Ratio 17.9 Blood Gas Specimen Source Blood arterial Blood arterial Arterial Blood Date Drawn 01/13/2017 8:00:57 AM 01/13/2017 12:10:23 PM Arterial Blood pH (Temp corrected) 7.447 7.424 Arterial Blood pCO2 (Temp correct) 48.8 H 47.6 H Arterial Blood pO2 (Temp corrected) 94.6 70.4 L Arterial Blood HCO3 32.9 H 30.5 H Arterial Blood Base Excess 8.0 H 5.3 H Arterial Blood Oxygen Saturation 96.9 92.8 L [place] Test ACCEPTAB ACCEPTAB Arterial Blood Gas Puncture Site Right Radial Right Radial Arterial Blood Carboxyhemoglobin 0.3 0.3 Arterial Blood Methemoglobin 0.3 0.4 Blood Gas A-a O2 Differential 134.5 H 160.1 H Oxyhemoglobin Percent 96.3 92.2 L Total Hemoglobin 8.5 L 10.2 L Blood Gas Temperature 37.0 37.0 Blood Gas Respiration Rate 20.0 Blood Gas Actual Respiration Rate 24 25 Blood Gas Modality VENT - AC VENT - CPAP FiO2 40.0 40.0 Blood Gas Tidal Volume 500.0 Blood Gas Low PEEP Setting 7.0 5.0 Blood Gas Notified Whom LOUISA JASSO Blood Gas Notified Time 01/13/2017 8:20:41 AM 01/13/2017 12:28:02 PM Blood Gas Pressure Support 10 Medications Medications Current Medications Gabapentin (Neurontin) 600 mg TID PO Last administered on 01/13/17 12:42; Admin Dose 600 MG; Start 12/31/16 at 09:00 Acetaminophen (Tylenol Tab) 650 mg Q4H PRN PO pain/fever Last administered on 01/11/17 07:46; Admin Dose 650 MG; Start 12/31/16 at 01:00 Hydralazine HCl (Apresoline) 25 mg Q6H PRN PO sbp>160; Start 12/31/16 at 01:00 Enalaprilat (Vasotec Iv) 1.25 mg Q6H PRN IV sbp>160; Start 12/31/16 at 01:00 Ondansetron HCl (Zofran Inj) 4 mg Q4H PRN IV nausea; Start 12/31/16 at 01:00 Hydralazine HCl 10 mg 10 mg Q4H PRN IV ELEVATED SYSTOLIC BP Last administered on 01/10/17 15:04; Admin Dose 10 MG; Start 12/31/16 at 05:30 Fentanyl 100 ml @ 2.5 mls/hr TITRATE IV Last administered on 01/13/17 08:34 ; Admin Dose 10 MLS/HR; Start 12/31/16 at 16:30 Midazolam HCl 50 ml @ 1 mls/hr TITRATE IV Last administered on 01/13/17 08:33 ; Admin Dose 10 MLS/HR; Start 12/31/16 at 16:30 Cefepime HCl 50 ml @ 100 mls/hr Q12 IVPB Last administered on 01/13/17 09:00 ; Admin Dose 100 MLS/HR; Start 12/31/16 at 20:00 Vecuronium [place]/Dextrose (Vecuronium [place]/D5W) 100 ml @ 6.03 mls/hr TITRATE IV Last administered on 01/03/17 04:07; Admin Dose 6.03 MLS/HR; Start 01/01/17 at 06:00 Labetalol HCl (Labetalol) 10 mg Q4H PRN IV SBP GREATER THAN 160 Last administered on 01/10/17 22:33; Admin Dose 10 MG; Start 01/01/17 at 12:00 IV Flush (NS 10 ml) 10 ml PRN PRN IV IV PROTOCOL; Start 01/02/17 at 17:00 Lorazepam (Ativan) 2 mg Q2H PRN IV PRN Agitation. Last administered on 14:44; Admin Dose 2 MG; Start 01/04/17 at 09:00 Pantoprazole 40 mg 40 mg BID@06,18 IV Last administered on 01/13/17 05:55; Admin Dose 40 MG; Start 01/06/17 at 09:30 Propofol (Diprivan) 100 ml @ 3.537 mls/ hr Q12H IV Last administered on 12:39; Admin Dose 14.148 MLS/HR; Start 01/10/17 at 09:30 Metoclopramide HCl 10 mg 10 mg Q6 IV Last administered on 01/13/17 11:20; Admin Dose 10 MG; Start 01/11/17 at 12:00 Vancomycin HCl/ Sodium Chloride (Vancocin/NS) 500 ml @ 125 mls/hr Q8H IVPB Last administered on 01/13/17 11:08; Admin Dose 125 MLS/HR; Start 01/11/17 at 18:00 Valproate Sodium (Depakene Liquid Cup) 500 mg QHS NGT Last administered on 21:11; Admin Dose 500 MG; Start 01/11/17 at 21:00 Haloperidol (Haldol) 5 mg Q6 IV Last administered on 01/13/17 11:20; Admin Dose 5 MG; Start 01/12/17 at 12:00 Carbamazepine (Tegretol Susp) 400 mg QHS NGT Last administered on 01/12/17 23 :32; Admin Dose 400 MG; Start 01/12/17 at 21:00 Furosemide 40 mg 40 mg DAILY IV ; Start 01/14/17 at 09:00 Potassium Chloride (KCl 40 MEQ/250 ML NS) 250 ml @ 62.5 mls/hr ONCE ONCE IVPB Last administered on 01/13/17 11:09; Admin Dose 62.5 MLS/HR; Start at 10:00; Stop 01/13/17 at 13:59 JULY MCKENNA Jan 13, 2017 13:06
[2017-01-13] MEDS ORDERED: HALOPERIDOL 5 MG INJ IV ONE ×2 (14:30)
[2017-01-13] MEDS ORDERED: ALBUTEROL/IPRATROPIUM (NEB) 3 ML AMP HHN SCH (15:30)
[2017-01-13] MEDS: hydrALAzine 20 MG INJ IV PRN (16:25)
[2017-01-13] MEDS: LORAZEPAM 2 MG INJ IV PRN (16:34)
--- NOTE | 2017-01-13 16:37 | RADRPT ---
PROCEDURE: XR Chest. CLINICAL INDICATION: Shortness of breath. TECHNIQUE: Single frontal view. COMPARISON: 01/12/2017. FINDINGS: The endotracheal tube, nasogastric tube, and right arm PICC line remain in satisfactory position. Th ere is bilateral interstitial and alveolar disease consistent with pulmonary edema. There is left ba silar consolidation which may indicate pneumonia. The heart size is normal. There are small bilateral pleural effusions. There is no pneumothorax. IMPRESSION: 1. No change from 01/12/2017. RPTAT: QQ .Jerry Arellano MD, MD Date Time Electronically viewed and signed by .Jerry Arellano MD, MD on 01/13/2017 16:36 .R/
[2017-01-13 17:17] LABS: AADO2 Arterial 142.6 mmHg (7.0-24.0); Allen Test ACCEPTAB; Arterial COHb 0.3 % (0.0-3.0); Arterial Fraction of Oxyhgb 86.4 % (93.0-99.0); Arterial HCO3 29.1 mmol/L (22.0-26.0); Arterial MetHb 0.1 % (0.0-1.5); Arterial Total Hemglobin 10.5 g/dl (12.0-18.0); MODE NASAL CANNULA
--- NOTE | 2017-01-13 17:58 | RADRPT ---
PROCEDURE: XR Chest. CLINICAL INDICATION: Check endotracheal tube position. TECHNIQUE: Single frontal view. COMPARISON: 01/13/2017. 0635 hours. FINDINGS: The endotracheal tube, nasogastric tube, and right arm PICC line remain in satisfactory position. Th ere is bilateral interstitial and alveolar disease consistent with pulmonary edema. There is left ba silar consolidation which may indicate pneumonia. The heart size is normal. There are small bilateral pleural effusions. There is no pneumothorax. IMPRESSION: 1. Satisfactory position of endotracheal tube. 2. No change from the prior study done earlier the same day. RPTAT: QQ .Jerry Arellano MD, MD Date Time Electronically viewed and signed by .Jerry Arellano MD, MD on 01/13/2017 17:58 .R/
[2017-01-13 18:51] LABS: AADO2 Arterial 512.5 mmHg (7.0-24.0); Allen Test ACCEPTAB; Arterial Base Excess 5.7 mmol/L (-3.0-3); Arterial COHb 0.3 % (0.0-3.0); Arterial HCO3 30.7 mmol/L (22.0-26.0); Arterial MetHb 0.3 % (0.0-1.5); Arterial Total Hemglobin 12.3 g/dl (12.0-18.0); MODE VENT - AC
[2017-01-13 19:52] LABS: CREATININE 0.57 mg/dl (0.61-1.24)
[2017-01-13] MEDS: ALBUTEROL 18 GM INHALER INH SCH (20:00)
[2017-01-13] MEDS: IPRATROPIUM (HFA) 12.9 GM INHALER INH SCH (20:00)
[2017-01-13 20:06] LABS: POTASSIUM 2.9 mmol/L (3.5-5.1)
[2017-01-13] MEDS: VALPROIC ACID LIQUID CUP 250 MG/5 ML CUP NGT SCH (20:15)
--- NOTE | 2017-01-13 20:24 | QN ---
Documentation Comment Called to room 118 of the ICU for emergent intubation ET intubation note: Patient was creatinine with bag mask ventilation. RSI was used with 20 mg of etomidate and 100 mg of rocuronium. Size 8 ET tube was easily introduced through visualized cords using a MAC 4 blade. Oxygenation was 100% after the procedure. Patient taught the procedure with no complications. One attempt was made. Confirmation of visualization, and positive entitled CO2 color change, breath sounds. MEAGAN JURADO DO Jan 13, 2017 20:24
[2017-01-13] MEDS ORDERED: QUETIAPINE 100 MG TAB NGT SCH (21:00)
[2017-01-13] MEDS: carBAMAZEpine SUSP 100 MG/5 ML NGT SCH (21:18)
[2017-01-13] MEDS ORDERED: POTASSIUM CHLORIDE 50 ML IVPB SCH (22:00)
[2017-01-13] MEDS: KCL 20 MEQ in NS 100 ML IV SCH ×2 (22:23→23:26)
[2017-01-14] VITALS (54 sets, daily range): BP systolic 110–152; BP diastolic 56–90; PULSE 60–98; RESP 16–29
[2017-01-14] MEDS: PROPOFOL 100 ML IV SCH ×9 (00:13→23:14)
[2017-01-14] MEDS: ALBUTEROL 18 GM INHALER INH SCH ×4 (01:33→19:38)
[2017-01-14] MEDS: IPRATROPIUM (HFA) 12.9 GM INHALER INH SCH ×4 (01:33→19:38)
[2017-01-14] MEDS: KCL 20 MEQ in NS 100 ML IV SCH (01:37)
[2017-01-14] MEDS: VANCOMYCIN 2 GM in SOD CHLORIDE 0.9% 500 ML IVPB SCH ×3 (01:38→19:35)
[2017-01-14] MEDS: FENTAnyl (DRIP) 1000 mcg/100mL 100 ML IV SCH ×3 (03:02→20:02)
[2017-01-14] MEDS: MIDAZOLAM (DRIP) 50 mg/50 mL 50 ML IV SCH ×4 (03:10→22:23)
[2017-01-14] MEDS: METOCLOPRAMIDE 10 MG INJ IV SCH ×4 (05:50→23:14)
[2017-01-14] MEDS: PANTOPRAZOLE 40 MG INJ IV SCH ×2 (05:50→18:59)
[2017-01-14] MEDS: HALOPERIDOL 5 MG INJ IV SCH ×4 (05:50→23:14)
[2017-01-14 06:04] LABS: BASOPHIL # 0.1 10^3/ul (0.0-0.1); BASOPHILS % 0.7 % (0.0-2.0); EOSINOPHILS # 0.5 10^3/ul (0.0-0.5); EOSINOPHILS % 5.6 % (0.0-7.0); HEMOGLOBIN 7.3 g/dl (14.0-18.0); LYMPHOCYTES % 10.5 % (15.0-51.0); MEAN CORPUSCULAR HEMOGLOBIN 28.5 pg (29.0-33.0); MEAN CORPUSCULAR HGB CONC 31.7 g/dl (32.0-37.0); MEAN CORPUSCULAR VOLUME 89.8 fl (82.0-101.0); MEAN PLATELET VOLUME 10.9 fl (7.4-10.4); MONOCYTE # 0.6 10^3/ul (0.3-0.9); MONOCYTES % 6.7 % (0.0-11.0); NEUTROPHIL # 6.9 10^3/ul (1.6-7.5); NEUTROPHILS % 75.7 % (39.0-77.0); PLATELET COUNT 372 10^3/UL (140-415); RED BLOOD COUNT 2.56 10^6/ul (4.70-6.10); RED CELL DISTRIBUTION WIDTH 14.5 % (11.5-14.5); WHITE BLOOD COUNT 9.1 10^3/ul (4.8-10.8)
[2017-01-14 06:39] LABS: CALCIUM 7.9 mg/dl (8.4-10.2); CREATININE 0.61 mg/dl (0.61-1.24); PHOSPHORUS 4.4 mg/dl (2.5-4.9); POTASSIUM 3.3 mmol/L (3.5-5.1)
--- NOTE | 2017-01-14 08:42 | RADRPT ---
PROCEDURE: XR Chest. CLINICAL INDICATION: Shortness of breath. TECHNIQUE: Single frontal view. COMPARISON: 01/13/2017. FINDINGS: The endotracheal tube, nasogastric tube, and right arm PICC line remain in satisfactory position. Th ere is bilateral interstitial and alveolar disease consistent with pulmonary edema, slightly improve d. Left basilar consolidation is slightly improved. The heart size is normal. There are small bilateral pleural effusions. There is no pneumothorax. IMPRESSION: 1. Slightly improved appearance of the lungs. 2. No other change from 01/13/2017. RPTAT: QQ .Jerry Arellano MD, MD Date Time Electronically viewed and signed by .Jerry Arellano MD, MD on 01/14/2017 08:25 .R/
[2017-01-14] MEDS: CEFEPIME 1GM/50 ML (PMX) 50 ML IVPB SCH ×2 (10:09→20:03)
[2017-01-14] MEDS: FUROSEMIDE 40 MG INJ IV SCH (10:09)
[2017-01-14] MEDS: GABAPENTIN 300 MG CAP PO SCH ×3 (10:09→20:02)
--- NOTE | 2017-01-14 11:06 | CONS ---
Date/Time of Note Date/Time of Note DATE: 01/14/17 TIME: 11:04 Consult Date/Type/Reason Admit Date/Time Dec 31, 2016 at 00:30 Initial Consult Date 12/31/16 Type of Consultation: Pulm/CCM Subjective Patient experienced significant respiratory distress several hours after extubation yesterday. Required emergent reintubation is now back on mechanical ventilation with sedation. Objective Vital Signs Date Time Temp Pulse Resp B/P Pulse Ox O2 Delivery O2 Flow Rate FiO2 01/14/17 09:48 73 23 99 70 01/14/17 04:00 99.2 120/69 Mechanical Ventilator 01/13/17 15:30 4.0 Intake and Output 01/13/17 01/13/17 01/14/17 15:00 23:00 07:00 Intake Total 1526.5 ml 1151.85 ml 896.238 ml Output Total 3600 ml 1625 ml 555 ml Balance -2073.5 ml -473.15 ml 341.238 ml Exam SICAL EXAMINATION GENERAL: Well-nourished well-developed gentleman orally intubated on mechanical ventilation VITAL SIGNS: see below. HEENT: Pupils equal, round, and reactive to light. CARDIAC: S1, S2, 1/6 systolic ejection murmur CHEST: Diminished air entry bilaterally. ABDOMEN: Mildly distended. Bowel sounds present no guarding or rebound EXTREMITIES: No cyanosis, clubbing edema +1 NEUROLOGIC: Generalized weakness Results/Medications Result Diagram: 01/14/17 0527 01/14/17 0527 Results 24 hrs Laboratory Tests Test 01/13/17 12:00 01/13/17 16:55 01/13/17 17:00 01/13/17 18:30 Blood Gas Specimen Source Blood arterial Blood arterial Blood arterial Arterial Blood Date Drawn 01/13/2017 12:10:23 PM 01/13/2017 5:00:34 PM 01/13/2017 6:40:31 PM Arterial Blood pH (Temp corrected) 7.424 7.523 H 7.439 Arterial Blood pCO2 (Temp correct) 47.6 H 36.2 46.3 H Arterial Blood pO2 (Temp corrected) 70.4 L 50.4 *L 154.2 H Arterial Blood HCO3 30.5 H 29.1 H 30.7 H Arterial Blood Base Excess 5.3 H 6.0 H 5.7 H Arterial Blood Oxygen Saturation 92.8 L 86.7 L 98.6 H [place] Test ACCEPTAB ACCEPTAB ACCEPTAB Arterial Blood Gas Puncture Site Right Radial Right Radial Right Radial Arterial Blood Carboxyhemoglobin 0.3 0.3 0.3 Arterial Blood Methemoglobin 0.4 0.1 0.3 Blood Gas A-a O2 Differential 160.1 H 142.6 H 512.5 H Oxyhemoglobin Percent 92.2 L 86.4 L 98.0 Total Hemoglobin 10.2 L 10.5 L 12.3 Blood Gas Temperature 37.0 37.0 37.0 Blood Gas Actual Respiration Rate 25 28 Blood Gas Modality VENT - CPAP NASAL CANNULA VENT - AC FiO2 40.0 33.0 100.0 Blood Gas Low PEEP Setting 5.0 Blood Gas Pressure Support 10 Blood Gas Notified Whom JLSimon [place] Blood Gas Notified Time 01/13/2017 12:28:02 PM 01/13/2017 5:17:22 PM 01/13/2017 6:51:19 PM Blood Gas Critical Value Read Back E Keern GONZALEZ Blood Gas Respiration Rate 20.0 Blood Gas Tidal Volume 500.0 Blood Gas High PEEP Setting 7.0 Sodium Level 149 H Potassium Level 2.9 *L Chloride Level 105 Carbon Dioxide Level 31 Anion Gap 16 # Blood Urea Nitrogen 8 Creatinine 0.57 L Glucose Level 136 Calcium Level 8.0 L Test 01/14/17 05:27 White Blood Count 9.1 # Red Blood Count 2.56 L Hemoglobin 7.3 L Hematocrit 23.0 L Mean Corpuscular Volume 89.8 Mean Corpuscular Hemoglobin 28.5 L Mean Corpuscular Hemoglobin Concent 31.7 L Red Cell Distribution Width 14.5 Platelet Count 372 Mean Platelet Volume 10.9 H Neutrophils % 75.7 Lymphocytes % 10.5 L Monocytes % 6.7 Eosinophils % 5.6 Basophils % 0.7 Nucleated Red Blood Cells % 0.0 Neutrophils # 6.9 Lymphocytes # 1.0 Monocytes # 0.6 Eosinophils # 0.5 Basophils # 0.1 Nucleated Red Blood Cells # 0.0 Sodium Level 150 H Potassium Level 3.3 L Chloride Level 108 Carbon Dioxide Level 33 H Anion Gap 12 Blood Urea Nitrogen 9 Creatinine 0.61 Glucose Level 88 # Calcium Level 7.9 L Phosphorus Level 4.4 Magnesium Level 2.0 Medications Current Medications Gabapentin (Neurontin) 600 mg TID PO Last administered on 01/14/17t 10:09; Admin Dose 600 MG; Start 12/31/16 at 09:00 Acetaminophen (Tylenol Tab) 650 mg Q4H PRN PO pain/fever Last administered on 01/11/17 07:46; Admin Dose 650 MG; Start 12/31/16 at 01:00 Hydralazine HCl (Apresoline) 25 mg Q6H PRN PO sbp>160; Start 12/31/16 at 01:00 Enalaprilat (Vasotec Iv) 1.25 mg Q6H PRN IV sbp>160; Start 12/31/16 at 01:00 Ondansetron HCl (Zofran Inj) 4 mg Q4H PRN IV nausea; Start 12/31/16 at 01:00 Hydralazine HCl 10 mg 10 mg Q4H PRN IV ELEVATED SYSTOLIC BP Last administered on 01/13/17 16:25; Admin Dose 10 MG; Start 12/31/16 at 05:30 Fentanyl 100 ml @ 2.5 mls/hr TITRATE IV Last administered on 01/14/17 03:02 ; Admin Dose 10 MLS/HR; Start 12/31/16 at 16:30 Midazolam HCl 50 ml @ 1 mls/hr TITRATE IV Last administered on 01/14/17 10:53 ; Admin Dose 10 MLS/HR; Start 12/31/16 at 16:30 Cefepime HCl 50 ml @ 100 mls/hr Q12 IVPB Last administered on 01/14/17 10:09 ; Admin Dose 100 MLS/HR; Start 12/31/16 at 20:00 Vecuronium [place]/Dextrose (Vecuronium [place]/D5W) 100 ml @ 6.03 mls/hr TITRATE IV Last administered on 01/03/17 04:07; Admin Dose 6.03 MLS/HR; Start 01/01/17 at 06:00 Labetalol HCl (Labetalol) 10 mg Q4H PRN IV SBP GREATER THAN 160 Last administered on 01/10/17 22:33; Admin Dose 10 MG; Start 01/01/17 at 12:00 IV Flush (NS 10 ml) 10 ml PRN PRN IV IV PROTOCOL; Start 01/02/17 at 17:00 Lorazepam (Ativan) 2 mg Q2H PRN IV PRN Agitation. Last administered on 16:34; Admin Dose 2 MG; Start 01/04/17 at 09:00 Pantoprazole 40 mg 40 mg BID@06,18 IV Last administered on 01/14/17 05:50; Admin Dose 40 MG; Start 01/06/17 at 09:30 Propofol (Diprivan) 100 ml @ 3.537 mls/ hr Q12H IV Last administered on 10:54; Admin Dose 35.37 MLS/HR; Start 01/10/17 at 09:30 Metoclopramide HCl 10 mg 10 mg Q6 IV Last administered on 01/14/17 05:50; Admin Dose 10 MG; Start 01/11/17 at 12:00 Vancomycin HCl/ Sodium Chloride (Vancocin/NS) 500 ml @ 125 mls/hr Q8H IVPB Last administered on 01/14/17 01:38; Admin Dose 125 MLS/HR; Start 01/11/17 at 18:00 Valproate Sodium (Depakene Liquid Cup) 500 mg QHS NGT Last administered on 20:15; Admin Dose 500 MG; Start 01/11/17 at 21:00 Haloperidol (Haldol) 5 mg Q6 IV Last administered on 01/14/17 05:50; Admin Dose 5 MG; Start 01/12/17 at 12:00 Carbamazepine (Tegretol Susp) 400 mg QHS NGT Last administered on 01/13/17 21 :18; Admin Dose 400 MG; Start 01/12/17 at 21:00 Furosemide (Lasix) 40 mg DAILY IV Last administered on 01/14/17 10:09; Admin Dose 40 MG; Start 01/14/17 at 09:00 Quetiapine Fumarate (Seroquel) 100 mg QHS NGT Last administered on 01/13/17 21:18; Admin Dose 100 MG; Start 01/13/17 at 21:00 Assessment/Plan Chief Complaint/Hosp Course IMP: 1. Hypoxic respiratory failure/Vent Dependence 2. Acute Lung Injury/ARDS 3. History of drug overdose 4. 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 5. Likely ALEX 6. Anemia RECS: 1. T mechanical ventilation. Patient unlikely to be safely liberated from mechanical ventilation, I would recommend tracheostomy and PEG tube placement. 2. Vent--> change to VC+; rate 20; Vt 500; PEEP 7 3. d/c iVF replace potassium. 4. TF/Free H20 5. Lasix daily Problems: BRIANNA SAAVEDRA [facility], [facility] Jan 14, 2017 11:06
--- NOTE | 2017-01-14 11:38 | PN ---
Date/Time of Note Date/Time of Note DATE: 01/14/17 TIME: 11:35 Assessment/Plan VTE Prophylaxis VTE Prophylaxis Intervention: SCD's Lines/Catheters IV Catheter Type (from Nrs): PICC Line Central line still needed: Yes (medication) Urinary Cath still in place: Yes Reason Cath still needed: other (indicate) (moniotr output) Assessment/Plan Chief Complaint/Hosp Course Assessment: Anemia- without significant change Severe encephalopathy Likely secondary to drug use Acute Respiratory failure Intubated and sedated Extubation with Bipap attempted and failed 01/13after 2 hours pt reintubated Plan: Continue to monitor h/h Continue PPI therapy Will proceed with EGD if warranted Continue all supportive care Patient seen in collaboration with Dr. Miranda Subjective: Course reviewed with nursing staff Patient interviewed and examined All labs, imaging and other results reviewed Was extubated yesterday x2 hours, did not tolerate and was intubated again Plan for [facility] up date today to discussed patients current condition and make future plans. Exam Constitutional: well developed, sedated and intubated Psych: unable to assess Head: atraumatic, normocephalic Eyes: EOMI, nl conjunctiva, nl lids ENMT: nl external ears & nose, nl lips & teeth, nl nasal mucosa & septum Neck: non-tender, supple Respiratory: Bilateral Rales Cardiovascular: nl pulses, regular rate and rhythm Gastrointestinal: hypoactive bowel sounds, soft Problems: Exam/Review of Systems Vital Signs Vitals Vital Signs Date Time Temp Pulse Resp B/P Pulse Ox O2 Delivery O2 Flow Rate FiO2 01/14/17 09:48 73 23 99 70 01/14/17 04:00 99.2 120/69 Mechanical Ventilator 01/13/17 15:30 4.0 Intake and Output 01/13/17 01/13/17 01/14/17 15:00 23:00 07:00 Intake Total 1526.5 ml 1151.85 ml 896.238 ml Output Total 3600 ml 1625 ml 555 ml Balance -2073.5 ml -473.15 ml 341.238 ml Results Result Diagram: 01/14/17 0527 01/14/17 0527 Results 24 hrs Laboratory Tests Test 01/13/17 12:00 01/13/17 16:55 01/13/17 17:00 01/13/17 18:30 Blood Gas Specimen Source Blood arterial Blood arterial Blood arterial Arterial Blood Date Drawn 01/13/2017 12:10:23 PM 01/13/2017 5:00:34 PM 01/13/2017 6:40:31 PM Arterial Blood pH (Temp corrected) 7.424 7.523 H 7.439 Arterial Blood pCO2 (Temp correct) 47.6 H 36.2 46.3 H Arterial Blood pO2 (Temp corrected) 70.4 L 50.4 *L 154.2 H Arterial Blood HCO3 30.5 H 29.1 H 30.7 H Arterial Blood Base Excess 5.3 H 6.0 H 5.7 H Arterial Blood Oxygen Saturation 92.8 L 86.7 L 98.6 H [place] Test ACCEPTAB ACCEPTAB ACCEPTAB Arterial Blood Gas Puncture Site Right Radial Right Radial Right Radial Arterial Blood Carboxyhemoglobin 0.3 0.3 0.3 Arterial Blood Methemoglobin 0.4 0.1 0.3 Blood Gas A-a O2 Differential 160.1 H 142.6 H 512.5 H Oxyhemoglobin Percent 92.2 L 86.4 L 98.0 Total Hemoglobin 10.2 L 10.5 L 12.3 Blood Gas Temperature 37.0 37.0 37.0 Blood Gas Actual Respiration Rate 25 28 Blood Gas Modality VENT - CPAP NASAL CANNULA VENT - AC FiO2 40.0 33.0 100.0 Blood Gas Low PEEP Setting 5.0 Blood Gas Pressure Support 10 Blood Gas Notified Whom LOUISA [place] Blood Gas Notified Time 01/13/2017 12:28:02 PM 01/13/2017 5:17:22 PM 01/13/2017 6:51:19 PM Blood Gas Critical Value Read Back E Keren GONZALEZ Blood Gas Respiration Rate 20.0 Blood Gas Tidal Volume 500.0 Blood Gas High PEEP Setting 7.0 Sodium Level 149 H Potassium Level 2.9 *L Chloride Level 105 Carbon Dioxide Level 31 Anion Gap 16 # Blood Urea Nitrogen 8 Creatinine 0.57 L Glucose Level 136 Calcium Level 8.0 L Test 01/14/17 05:27 White Blood Count 9.1 # Red Blood Count 2.56 L Hemoglobin 7.3 L Hematocrit 23.0 L Mean Corpuscular Volume 89.8 Mean Corpuscular Hemoglobin 28.5 L Mean Corpuscular Hemoglobin Concent 31.7 L Red Cell Distribution Width 14.5 Platelet Count 372 Mean Platelet Volume 10.9 H Neutrophils % 75.7 Lymphocytes % 10.5 L Monocytes % 6.7 Eosinophils % 5.6 Basophils % 0.7 Nucleated Red Blood Cells % 0.0 Neutrophils # 6.9 Lymphocytes # 1.0 Monocytes # 0.6 Eosinophils # 0.5 Basophils # 0.1 Nucleated Red Blood Cells # 0.0 Sodium Level 150 H Potassium Level 3.3 L Chloride Level 108 Carbon Dioxide Level 33 H Anion Gap 12 Blood Urea Nitrogen 9 Creatinine 0.61 Glucose Level 88 # Calcium Level 7.9 L Phosphorus Level 4.4 Magnesium Level 2.0 Medications Medications Current Medications Gabapentin (Neurontin) 600 mg TID PO Last administered on 01/14/17 10:09; Admin Dose 600 MG; Start 12/31/16 at 09:00 Acetaminophen (Tylenol Tab) 650 mg Q4H PRN PO pain/fever Last administered on 01/11/17 07:46; Admin Dose 650 MG; Start 12/31/16 at 01:00 Hydralazine HCl (Apresoline) 25 mg Q6H PRN PO sbp>160; Start 12/31/16 at 01:00 Enalaprilat (Vasotec Iv) 1.25 mg Q6H PRN IV sbp>160; Start 12/31/16 at 01:00 Ondansetron HCl (Zofran Inj) 4 mg Q4H PRN IV nausea; Start 12/31/16 at 01:00 Hydralazine HCl 10 mg 10 mg Q4H PRN IV ELEVATED SYSTOLIC BP Last administered on 01/13/17 16:25; Admin Dose 10 MG; Start 12/31/16 at 05:30 Fentanyl 100 ml @ 2.5 mls/hr TITRATE IV Last administered on 01/14/17 03:02 ; Admin Dose 10 MLS/HR; Start 12/31/16 at 16:30 Midazolam HCl 50 ml @ 1 mls/hr TITRATE IV Last administered on 01/14/17 10:53 ; Admin Dose 10 MLS/HR; Start 12/31/16 at 16:30 Cefepime HCl 50 ml @ 100 mls/hr Q12 IVPB Last administered on 01/14/17 10:09 ; Admin Dose 100 MLS/HR; Start 12/31/16 at 20:00 Vecuronium [place]/Dextrose (Vecuronium [place]/D5W) 100 ml @ 6.03 mls/hr TITRATE IV Last administered on 01/03/17 04:07; Admin Dose 6.03 MLS/HR; Start 01/01/17 at 06:00 Labetalol HCl (Labetalol) 10 mg Q4H PRN IV SBP GREATER THAN 160 Last administered on 01/10/17 22:33; Admin Dose 10 MG; Start 01/01/17 at 12:00 IV Flush (NS 10 ml) 10 ml PRN PRN IV IV PROTOCOL; Start 01/02/17 at 17:00 Lorazepam (Ativan) 2 mg Q2H PRN IV PRN Agitation. Last administered on 16:34; Admin Dose 2 MG; Start 01/04/17 at 09:00 Pantoprazole 40 mg 40 mg BID@06,18 IV Last administered on 01/14/17 05:50; Admin Dose 40 MG; Start 01/06/17 at 09:30 Propofol (Diprivan) 100 ml @ 3.537 mls/ hr Q12H IV Last administered on 10:54; Admin Dose 35.37 MLS/HR; Start 01/10/17 at 09:30 Metoclopramide HCl 10 mg 10 mg Q6 IV Last administered on 01/14/17 05:50; Admin Dose 10 MG; Start 01/11/17 at 12:00 Vancomycin HCl/ Sodium Chloride (Vancocin/NS) 500 ml @ 125 mls/hr Q8H IVPB Last administered on 01/14/17 01:38; Admin Dose 125 MLS/HR; Start 01/11/17 at 18:00 Valproate Sodium (Depakene Liquid Cup) 500 mg QHS NGT Last administered on 20:15; Admin Dose 500 MG; Start 01/11/17 at 21:00 Haloperidol (Haldol) 5 mg Q6 IV Last administered on 01/14/17 05:50; Admin Dose 5 MG; Start 01/12/17 at 12:00 Carbamazepine (Tegretol Susp) 400 mg QHS NGT Last administered on 01/13/17 21 :18; Admin Dose 400 MG; Start 01/12/17 at 21:00 Furosemide (Lasix) 40 mg DAILY IV Last administered on 01/14/17 10:09; Admin Dose 40 MG; Start 01/14/17 at 09:00 Quetiapine Fumarate (Seroquel) 100 mg QHS NGT Last administered on 01/13/17t 21:18; Admin Dose 100 MG; Start 01/13/17 at 21:00 JULY MCKENNA Jan 14, 2017 11:38
--- NOTE | 2017-01-14 14:13 | PN ---
Date/Time of Note Date/Time of Note DATE: 01/14/17 TIME: 13:57 Assessment/Plan VTE Prophylaxis VTE Prophylaxis Intervention: SCD's Lines/Catheters IV Catheter Type (from Nrsg): PICC Line Central line still needed: Yes (For IV access) Urinary Cath still in place: Yes Reason Cath still needed: other (indicate) (While intubated and sedated) Assessment/Plan Assessment/Plan 46 yo male with: 1. Severe encephalopathy 2ry to drug abuse likely Bath salts and/or synthetic marijuana. Patient still with episodes of agitation and still intubated for the past 11 days now, sedated now with propofol, fentanyl and Versed for sedation, off paralytics. Planning on titrating propofol off first Likely encephalopathy secondary to drug use, cannabinoid synthetics and possibly bath salts. He also does have a history of bipolar disorder but 1/2 sister and girlfriend have confirmed that patient is noncompliant with his outpatient antipsychotics and medications CT head 2 since admission are both wnl, EEG showing encephalopathy as expected while patient was on for sedating agent and paralytics. Continue attempts at titrating sedation down. Patient restarted on Seroquel to be increased to 200 mg p.o. nightly today possibly patient has been on 600-800 mg nightly as an outpatient seems to be too large of a dose. 2. Acute respiratory Failure 2ry to severe Encephalopathy from Drug overuse, intubated, sedated and paralysed. Patient was briefly extubated yesterday for 2 -1/2 hours but had to be reintubated due to inability to protect his airway, of note he was still on sedating agents. Also likely aspirated and with aspiration PNA vs pneumonitis. Now with concerns for ARDS or pulmonary On cefepime, vancomycin added since WBC has gone up this weekend and chest x- ray looked worse. On Lasix given the chest x-ray findings of pulmonary edema versus ARDS. WBC down to normal 2 days and chest x-ray appearance better today. Still on FiO2 of 40% and PEEP of 7 Still on fentanyl, propofol, and Versed for sedation, also getting as needed Ativan but hopefully will be able to titrate at least propofol to off. Patient being restarted on Seroquel. 3. Bipolar disorder: Likely noncompliant with psychiatric medications. Medication resumed via NG tube 4. Right foot Lisfranc fracture: Pain control and ? splint 5. Anemia: Hemoglobin variable but 7.7 today. No signs of active bleeding. GI following. Lovenox discontinued, SCDs to lower extremities. KUB/abdominal x-ray few days ago with no signs of obstruction, on Reglan up to 10 mg q6 and proton pump inhibitors. Tolerating tube feedings so far, hemoglobin is low but stable Blood transfusion as needed. Given lack of consenting next of kin, until we find a close relative, he is being transfused emergently only and getting procedures on an emergency basis. 6. Low-grade temperature, diaphoresis, blood cultures from 01/08 no growth to date. Urine culture from 01/08 no growth to date. Afebrile 2 days and white blood cell count down to normal. Sputum culture pending but patient already on broad coverage with cefepime and vancomycin Cardiac enzymes x1 wnl. 7. Hypokalemia: Continue to replace potassium as needed, check labs daily especially while patient is on Lasix. Magnesium level wnl. On free water for mild hypernatremia and prerenal azotemia but also being diuresed with increasing dose of Lasix per pulmonary. Prophylaxis: SCDs for DVT prophylaxis, Protonix for GI prophylaxis Disposition: Still in ICU, re-intubated, sedated, trying to weaning off sedation. Family meeting today did confirm that patient is noncompliant with medication, unfortunately he does have significant behavioral issues including violent behavior. He is a bipolar that seems to be mostly manic most of the time and noncompliant with medications at all. Drug use is an issue. We will try to do our best to have the patient safely extubated soon if not possible he may need tracheostomy and PEG which the 1/2 sister understand and has made does understand that either way she will not be involved in the primary caregiving of this patient and will be placed at the time of discharge no matter what his condition is as long as he cannot take care of himself. Subjective 24 Hr Interval Summary Free Text/Dictation Patient had to be reintubated after being extubated for 2-1/2 hours yesterday afternoon, he went into respiratory failure was unable to protect his airways. I had a family meeting with the half sister and the girlfriend this morning, they have confirmed that the patient does have significant behavioral issues with episodes of rage, he is a bipolar disorder patient, he is on apparently Seroquel prescribed around 600 mg daily but has not been compliant with it or somewhat increased the dose of 800 mg it is unclear but the patient was uncomfortable when he takes it with difficulty ambulating and multiple falls. According to the girlfriend he was not really taking his medications, he also has been smoking marijuana for sure and likely also to use synthetic cannabinoid and bath salts. According to the half-sister patient does have a long history of noncompliance and drug use. He has been hospitalized on multiple psychiatric facility. The sister today did inform a stat from now when she can be called with any updates and when he comes to the disposition of the patient she definitely would not be caring for him if the patient is to be placed. Exam/Review of Systems Vital Signs Vitals Vital Signs Date Time Temp Pulse Resp B/P Pulse Ox O2 Delivery O2 Flow Rate FiO2 01/14/17 11:27 71 20 100 70 01/14/17 11:00 121/63 Mechanical Ventilator 01/14/17 08:00 99.0 01/13/17 15:30 4.0 Intake and Output 01/13/17 01/13/17 01/14/17 15:00 23:00 07:00 Intake Total 1526.5 ml 1151.85 ml 896.238 ml Output Total 3600 ml 1625 ml 555 ml Balance -2073.5 ml -473.15 ml 341.238 ml Exam Constitutional: other (Sedated and intubated again), well developed Respiratory: diminished breath sounds (At bases), other (On vent) Cardiovascular: nl pulses, regular rate and rhythm Gastrointestinal: non-tender, soft Musculoskeletal: other (Right foot Lisfranc fracture) Extremities: normal pulses, other (No edema clubbing or cyanosis) Neurological: other (Sedated and intubated) Results Result Diagram: 01/14/1752601/14/17 05 Results 24 hrs Laboratory Tests Test 01/13/17 16:55 01/13/17 17:00 01/13/17 18:30 01/14/17 05:27 Blood Gas Specimen Source Blood arterial Blood arterial Arterial Blood Date Drawn 01/13/2017 5:00:34 PM 01/13/2017 6:40:31 PM Arterial Blood pH (Temp corrected) 7.523 H 7.439 Arterial Blood pCO2 (Temp correct) 36.2 46.3 H Arterial Blood pO2 (Temp corrected) 50.4 *L 154.2 H Arterial Blood HCO3 29.1 H 30.7 H Arterial Blood Base Excess 6.0 H 5.7 H Arterial Blood Oxygen Saturation 86.7 L 98.6 H [place] Test ACCEPTAB ACCEPTAB Arterial Blood Gas Puncture Site Right Radial Right Radial Arterial Blood Carboxyhemoglobin 0.3 0.3 Arterial Blood Methemoglobin 0.1 0.3 Blood Gas A-a O2 Differential 142.6 H 512.5 H Oxyhemoglobin Percent 86.4 L 98.0 Total Hemoglobin 10.5 L 12.3 Blood Gas Temperature 37.0 37.0 Blood Gas Modality NASAL CANNULA VENT - AC FiO2 33.0 100.0 Blood Gas Critical Value Read Back E Keren GONZALEZ Blood Gas Notified Whom AC AC Blood Gas Notified Time 01/13/2017 5:17:22 PM 01/13/2017 6:51:19 PM Blood Gas Respiration Rate 20.0 Blood Gas Actual Respiration Rate 28 Blood Gas Tidal Volume 500.0 Blood Gas High PEEP Setting 7.0 Sodium Level 149 H 150 H Potassium Level 2.9 *L 3.3 L Chloride Level 105 108 Carbon Dioxide Level 31 33 H Anion Gap 16 # 12 Blood Urea Nitrogen 8 9 Creatinine 0.57 L 0.61 Glucose Level 136 88 # Calcium Level 8.0 L 7.9 L White Blood Count 9.1 # Red Blood Count 2.56 L Hemoglobin 7.3 L Hematocrit 23.0 L Mean Corpuscular Volume 89.8 Mean Corpuscular Hemoglobin 28.5 L Mean Corpuscular Hemoglobin Concent 31.7 L Red Cell Distribution Width 14.5 Platelet Count 372 Mean Platelet Volume 10.9 H Neutrophils % 75.7 Lymphocytes % 10.5 L Monocytes % 6.7 Eosinophils % 5.6 Basophils % 0.7 Nucleated Red Blood Cells % 0.0 Neutrophils # 6.9 Lymphocytes # 1.0 Monocytes # 0.6 Eosinophils # 0.5 Basophils # 0.1 Nucleated Red Blood Cells # 0.0 Phosphorus Level 4.4 Magnesium Level 2.0 Imaging Free Text/Dictation PROCEDURE: XR Chest. CLINICAL INDICATION: Shortness of breath. TECHNIQUE: Single frontal view. COMPARISON: 01/13/2017. FINDINGS: The endotracheal tube, nasogastric tube, and right arm PICC line remain in satisfactory position. There is bilateral interstitial and alveolar disease consistent with pulmonary edema, slightly improved. Left basilar consolidation is slightly improved. The heart size is normal. There are small bilateral pleural effusions. There is no pneumothorax. IMPRESSION: 1. Slightly improved appearance of the lungs. 2. No other change from 01/13/2017. RPTAT: QQ .Jerry Arellano MD, MD Date Time Electronically viewed and signed by .Jerry Arellano MD, on 01/14/2017 08:25 .R/ Medications Medications Current Medications Gabapentin (Neurontin) 600 mg TID PO Last administered on 01/14/17 10:09; Admin Dose 600 MG; Start 12/31/16 at 09:00 Acetaminophen (Tylenol Tab) 650 mg Q4H PRN PO pain/fever Last administered on 01/11/17 07:46; Admin Dose 650 MG; Start 12/31/16 at 01:00 Hydralazine HCl (Apresoline) 25 mg Q6H PRN PO sbp>160; Start 12/31/16 at 01:00 Enalaprilat (Vasotec Iv) 1.25 mg Q6H PRN IV sbp>160; Start 12/31/16 at 01:00 Ondansetron HCl (Zofran Inj) 4 mg Q4H PRN IV nausea; Start 12/31/16 at 01:00 Hydralazine HCl 10 mg 10 mg Q4H PRN IV ELEVATED SYSTOLIC BP Last administered on 01/13/17 16:25; Admin Dose 10 MG; Start 12/31/16 at 05:30 Fentanyl 100 ml @ 2.5 mls/hr TITRATE IV Last administered on 01/14/17 12:49 ; Admin Dose 10 MLS/HR; Start 12/31/16 at 16:30 Midazolam HCl 50 ml @ 1 mls/hr TITRATE IV Last administered on 01/14/17 10:53 ; Admin Dose 10 MLS/HR; Start 12/31/16 at 16:30 Cefepime HCl 50 ml @ 100 mls/hr Q12 IVPB Last administered on 01/14/17 10:09 ; Admin Dose 100 MLS/HR; Start 12/31/16 at 20:00 Vecuronium [place]/Dextrose (Vecuronium [place]/D5W) 100 ml @ 6.03 mls/hr TITRATE IV Last administered on 01/03/17 04:07; Admin Dose 6.03 MLS/HR; Start 01/01/17 at 06:00 Labetalol HCl (Labetalol) 10 mg Q4H PRN IV SBP GREATER THAN 160 Last administered on 01/10/17 22:33; Admin Dose 10 MG; Start 01/01/17 at 12:00 IV Flush (NS 10 ml) 10 ml PRN PRN IV IV PROTOCOL; Start 01/02/17 at 17:00 Lorazepam (Ativan) 2 mg Q2H PRN IV PRN Agitation. Last administered on 16:34; Admin Dose 2 MG; Start 01/04/17 at 09:00 Pantoprazole 40 mg 40 mg BID@06,18 IV Last administered on 01/14/17 05:50; Admin Dose 40 MG; Start 01/06/17 at 09:30 Propofol (Diprivan) 100 ml @ 3.537 mls/ hr Q12H IV Last administered on 13:49; Admin Dose 35.37 MLS/HR; Start 01/10/17 at 09:30 Metoclopramide HCl 10 mg 10 mg Q6 IV Last administered on 01/14/17 12:33; Admin Dose 10 MG; Start 01/11/17 at 12:00 Vancomycin HCl/ Sodium Chloride (Vancocin/NS) 500 ml @ 125 mls/hr Q8H IVPB Last administered on 01/14/17 12:30; Admin Dose 125 MLS/HR; Start 01/11/17 at 18:00 Valproate Sodium (Depakene Liquid Cup) 500 mg QHS NGT Last administered on 20:15; Admin Dose 500 MG; Start 01/11/17 at 21:00 Haloperidol (Haldol) 5 mg Q6 IV Last administered on 01/14/17 12:33; Admin Dose 5 MG; Start 01/12/17 at 12:00 Carbamazepine (Tegretol Susp) 400 mg QHS NGT Last administered on 01/13/17 21 :18; Admin Dose 400 MG; Start 01/12/17 at 21:00 Furosemide (Lasix) 40 mg DAILY IV Last administered on 01/14/17 10:09; Admin Dose 40 MG; Start 01/14/17 at 09:00 Quetiapine Fumarate (Seroquel) 100 mg QHS NGT Last administered on 01/13/17 21:18; Admin Dose 100 MG; Start 01/13/17 at 21:00 TRENT NEWMAN Jan 14, 2017 14:12
[2017-01-14] MEDS ORDERED: POTASSIUM CHLORIDE 250 ML IVPB ONE (14:30)
[2017-01-14] MEDS: VALPROIC ACID LIQUID CUP 250 MG/5 ML CUP NGT SCH (20:03)
[2017-01-14] MEDS: carBAMAZEpine SUSP 100 MG/5 ML NGT SCH (20:51)
[2017-01-14] MEDS ORDERED: QUETIAPINE 100 MG TAB NGT SCH (21:00)
[2017-01-15] VITALS (54 sets, daily range): BP systolic 103–145; BP diastolic 52–100; PULSE 61–106; RESP 12–27
[2017-01-15] MEDS: ALBUTEROL 18 GM INHALER INH SCH ×4 (01:29→19:28)
[2017-01-15] MEDS: IPRATROPIUM (HFA) 12.9 GM INHALER INH SCH ×4 (01:29→19:28)
[2017-01-15] MEDS: VANCOMYCIN 2 GM in SOD CHLORIDE 0.9% 500 ML IVPB SCH ×3 (02:12→17:30)
[2017-01-15] MEDS: PROPOFOL 100 ML IV SCH ×9 (02:23→23:22)
[2017-01-15] MEDS: MIDAZOLAM (DRIP) 50 mg/50 mL 50 ML IV SCH ×5 (03:28→23:22)
[2017-01-15 05:38] LABS: BASOPHIL # 0.1 10^3/ul (0.0-0.1); BASOPHILS % 1.3 % (0.0-2.0); EOSINOPHILS # 0.9 10^3/ul (0.0-0.5); EOSINOPHILS % 15.7 % (0.0-7.0); HEMATOCRIT 25.2 % (42.0-52.0); HEMOGLOBIN 7.8 g/dl (14.0-18.0); LYMPHOCYTES % 18.5 % (15.0-51.0); MEAN CORPUSCULAR HEMOGLOBIN 28.1 pg (29.0-33.0); MEAN CORPUSCULAR VOLUME 90.6 fl (82.0-101.0); MEAN PLATELET VOLUME 10.8 fl (7.4-10.4); MONOCYTE # 0.6 10^3/ul (0.3-0.9); MONOCYTES % 11.5 % (0.0-11.0); NEUTROPHIL # 2.8 10^3/ul (1.6-7.5); NEUTROPHILS % 51.4 % (39.0-77.0); PLATELET COUNT 372 10^3/UL (140-415); RED BLOOD COUNT 2.78 10^6/ul (4.70-6.10); RED CELL DISTRIBUTION WIDTH 14.5 % (11.5-14.5); WHITE BLOOD COUNT 5.5 10^3/ul (4.8-10.8)
[2017-01-15 05:58] LABS: PHOSPHORUS 5.9 mg/dl (2.5-4.9)
[2017-01-15] MEDS: METOCLOPRAMIDE 10 MG INJ IV SCH ×3 (06:01→17:03)
[2017-01-15] MEDS: PANTOPRAZOLE 40 MG INJ IV SCH ×2 (06:01→17:03)
[2017-01-15] MEDS: HALOPERIDOL 5 MG INJ IV SCH ×3 (06:01→17:03)
[2017-01-15] MEDS: FENTAnyl (DRIP) 1000 mcg/100mL 100 ML IV SCH ×2 (06:12→15:21)
[2017-01-15 06:17] LABS: CALCIUM 8.1 mg/dl (8.4-10.2); CREATININE 0.59 mg/dl (0.61-1.24); POTASSIUM 3.2 mmol/L (3.5-5.1)
[2017-01-15] MEDS: GABAPENTIN 300 MG CAP PO SCH ×2 (08:17→12:43)
[2017-01-15] MEDS: CEFEPIME 1GM/50 ML (PMX) 50 ML IVPB SCH ×2 (08:17→20:47)
[2017-01-15] MEDS: FUROSEMIDE 40 MG INJ IV SCH (08:17)
[2017-01-15] MEDS ORDERED: POTASSIUM CHLORIDE 20 MEQ POWDER FOR ORAL SOLN NGT ONE ×2 (09:30→12:00)
--- NOTE | 2017-01-15 10:49 | CONS ---
Date/Time of Note Date/Time of Note DATE: 01/15/17 TIME: 10:48 Consult Date/Type/Reason Admit Date/Time Dec 31, 2016 at 00:30 Initial Consult Date 12/31/16 Type of Consultation: Pulm/CCM Subjective No new events. Continue this mechanical ventilation. Objective Vital Signs Date Time Temp Pulse Resp B/P Pulse Ox O2 Delivery O2 Flow Rate FiO2 01/15/17 10:00 71 20 109/66 100 Mechanical Ventilator 01/15/17 08:00 70 01/15/17 07:00 97.4 01/13/17 15:30 4.0 Intake and Output 01/14/17 01/14/17 01/15/17 15:00 23:00 07:00 Intake Total 1178.812 ml 1565.992 ml 842.96 ml Output Total 485 ml 560 ml 455 ml Balance 693.812 ml 1005.992 ml 387.96 ml Exam SICAL EXAMINATION GENERAL: Well-nourished well-developed gentleman orally intubated on mechanical ventilation VITAL SIGNS: see below. HEENT: Pupils equal, round, and reactive to light. CARDIAC: S1, S2, 1/6 systolic ejection murmur CHEST: Diminished air entry bilaterally. ABDOMEN: Mildly distended. Bowel sounds present no guarding or rebound EXTREMITIES: No cyanosis, clubbing edema +1 NEUROLOGIC: Generalized weakness Results/Medications Result Diagram: 01/15/17 0430 01/15/17 0430 Results 24 hrs Laboratory Tests Test 01/15/17 04:30 White Blood Count 5.5 # Red Blood Count 2.78 L Hemoglobin 7.8 L Hematocrit 25.2 L Mean Corpuscular Volume 90.6 Mean Corpuscular Hemoglobin 28.1 L Mean Corpuscular Hemoglobin Concent 31.0 L Red Cell Distribution Width 14.5 Platelet Count 372 Mean Platelet Volume 10.8 H Neutrophils % 51.4 Lymphocytes % 18.5 Monocytes % 11.5 H Eosinophils % 15.7 H Basophils % 1.3 Nucleated Red Blood Cells % 0.0 Neutrophils # 2.8 Lymphocytes # 1.0 Monocytes # 0.6 Eosinophils # 0.9 H Basophils # 0.1 Nucleated Red Blood Cells # 0.0 Sodium Level 146 H Potassium Level 3.2 L Chloride Level 103 Carbon Dioxide Level 33 H Anion Gap 13 Blood Urea Nitrogen 11 Creatinine 0.59 L Glucose Level 100 Calcium Level 8.1 L Phosphorus Level 5.9 H Magnesium Level 2.0 Medications Current Medications Gabapentin (Neurontin) 600 mg TID PO Last administered on 01/15/17 08:17; Admin Dose 600 MG; Start 12/31/16 at 09:00 Acetaminophen (Tylenol Tab) 650 mg Q4H PRN PO pain/fever Last administered on 01/11/17 07:46; Admin Dose 650 MG; Start 12/31/16 at 01:00 Hydralazine HCl (Apresoline) 25 mg Q6H PRN PO sbp>160; Start 12/31/16 at 01:00 Enalaprilat (Vasotec Iv) 1.25 mg Q6H PRN IV sbp>160; Start 12/31/16 at 01:00 Ondansetron HCl (Zofran Inj) 4 mg Q4H PRN IV nausea; Start 12/31/16 at 01:00 Hydralazine HCl 10 mg 10 mg Q4H PRN IV ELEVATED SYSTOLIC BP Last administered on 01/13/17 16:25; Admin Dose 10 MG; Start 12/31/16 at 05:30 Fentanyl 100 ml @ 2.5 mls/hr TITRATE IV Last administered on 01/15/17 06:12 ; Admin Dose 10 MLS/HR; Start 12/31/16 at 16:30 Midazolam HCl 50 ml @ 1 mls/hr TITRATE IV Last administered on 01/15/17 08:01 ; Admin Dose 10 MLS/HR; Start 12/31/16 at 16:30 Cefepime HCl 50 ml @ 100 mls/hr Q12 IVPB Last administered on 01/15/17 08:17 ; Admin Dose 100 MLS/HR; Start 12/31/16 at 20:00 Vecuronium [place]/Dextrose (Vecuronium [place]/D5W) 100 ml @ 6.03 mls/hr TITRATE IV Last administered on 01/03/17 04:07; Admin Dose 6.03 MLS/HR; Start 01/01/17 at 06:00 Labetalol HCl (Labetalol) 10 mg Q4H PRN IV SBP GREATER THAN 160 Last administered on 01/10/17 22:33; Admin Dose 10 MG; Start 01/01/17 at 12:00 IV Flush (NS 10 ml) 10 ml PRN PRN IV IV PROTOCOL; Start 01/02/17 at 17:00 Lorazepam (Ativan) 2 mg Q2H PRN IV PRN Agitation. Last administered on 16:34; Admin Dose 2 MG; Start 01/04/17 at 09:00 Pantoprazole 40 mg 40 mg BID@06,18 IV Last administered on 01/15/17 06:01; Admin Dose 40 MG; Start 01/06/17 at 09:30 Propofol (Diprivan) 100 ml @ 3.537 mls/ hr Q12H IV Last administered on 10:40; Admin Dose 35.37 MLS/HR; Start 01/10/17 at 09:30 Metoclopramide HCl 10 mg 10 mg Q6 IV Last administered on 01/15/17 06:01; Admin Dose 10 MG; Start 01/11/17 at 12:00 Vancomycin HCl/ Sodium Chloride (Vancocin/NS) 500 ml @ 125 mls/hr Q8H IVPB Last administered on 01/15/17 09:54; Admin Dose 125 MLS/HR; Start 01/11/17 at 18:00 Valproate Sodium (Depakene Liquid Cup) 500 mg QHS NGT Last administered on 20:03; Admin Dose 500 MG; Start 01/11/17 at 21:00 Haloperidol (Haldol) 5 mg Q6 IV Last administered on 01/15/17 06:01; Admin Dose 5 MG; Start 01/12/17 at 12:00 Carbamazepine (Tegretol Susp) 400 mg QHS NGT Last administered on 01/14/17 20 :51; Admin Dose 400 MG; Start 01/12/17 at 21:00 Furosemide (Lasix) 40 mg DAILY IV Last administered on 01/15/17 08:17; Admin Dose 40 MG; Start 01/14/17 at 09:00 Quetiapine Fumarate (Seroquel) 200 mg QHS NGT Last administered on 01/14/17 20:15; Admin Dose 200 MG; Start 01/14/17 at 21:00 Assessment/Plan Chief Complaint/Hosp Course IMP: 1. Hypoxic respiratory failure/Vent Dependence 2. Acute Lung Injury/ARDS 3. History of drug overdose 4. 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 5. Likely ALEX 6. Anemia RECS: 1. T mechanical ventilation. Patient unlikely to be safely liberated from mechanical ventilation, I would recommend tracheostomy and PEG tube placement. 2. Vent--> change to VC+; rate 20; Vt 500; PEEP 7 3. d/c iVF replace potassium. Potassium protocol. 4. TF/Free H20 5. Lasix daily 6. Adjust psych medications. Problems: BRIANNA SAAVEDRA MD, [facility] Jan 15, 2017 10:49
[2017-01-15] MEDS ORDERED: QUETIAPINE 100 MG TAB NGT ONE (12:00)
[2017-01-15] MEDS ORDERED: SOD CHLORIDE 0.9% 250 ML IV* ONE (12:06)
--- NOTE | 2017-01-15 12:06 | PN ---
Date/Time of Note Date/Time of Note DATE: 01/15/17 TIME: 11:51 Assessment/Plan VTE Prophylaxis VTE Prophylaxis Intervention: SCD's Lines/Catheters IV Catheter Type (from Nrs): PICC Line Central line still needed: Yes (IV access) Urinary Cath still in place: Yes Reason Cath still needed: other (indicate) (Intubated and sedated) Assessment/Plan Assessment/Plan 46 yo male with: 1. Severe encephalopathy 2ry to drug abuse likely Bath salts and/or synthetic marijuana. Patient still with episodes of agitation and still intubated for the past 11 days now, sedated now with propofol, fentanyl and Versed for sedation, off paralytics. Planning on titrating propofol off first Likely encephalopathy secondary to drug use, cannabinoid synthetics and possibly bath salts. He also does have a history of bipolar disorder but 1/2 sister and girlfriend have confirmed that patient is noncompliant with his outpatient antipsychotics and medications CT head 2 since admission are both wnl, EEG showing encephalopathy as expected while patient was on for sedating agent and paralytics. Continue attempts at titrating sedation down. Patient restarted on Seroquel to be increased to 200 mg p.o. TID today possibly patient has been on 600-800 mg daily as an outpatient which seems to be a large of a dose. 2. Acute respiratory Failure 2ry to severe Encephalopathy from Drug overuse, intubated, sedated and paralysed. Patient was briefly extubated earlier this week for 2-1/2 hours but had to be reintubated due to inability to protect his airway, of note he was still on sedating agents. Also likely aspirated and with aspiration PNA vs pneumonitis. Now with concerns for ARDS or pulmonary On cefepime, vancomycin added since WBC has gone up this weekend and chest x- ray looked worse. On Lasix given the chest x-ray findings of pulmonary edema versus ARDS. WBC down to normal 3 days and chest x-ray appearance better today. Still on FiO2 of 50% and PEEP of 7 Still on fentanyl, propofol, and Versed for sedation, also getting as needed Ativan but hopefully will be able to titrate at least propofol to off. Patient being restarted on Seroquel and Tegretol dosing adjusted to outpatient dosing. Trazodone resumed at night. Seroquel can be titrated up.. 3. Bipolar disorder: Likely noncompliant with psychiatric medications. Medication resumed and adjusted to outpatient dosing based on the note from psychiatry 5 days prior to admission that were able to obtain today, patient Seroquel can even be titrated higher, according to the notes he was on Seroquel XR, increased to 1000 mg nightly per the latest note. Again per the girlfriend it is very likely that the patient was not fully compliant. 4. Right foot Lisfranc fracture: Pain control and ? splint 5. Anemia: Hemoglobin variable but 7.7 today. No signs of active bleeding. GI following. Transfuse 1 unit packed red blood cells Lovenox discontinued, SCDs to lower extremities. KUB/abdominal x-ray few days ago with no signs of obstruction, on Reglan up to 10 mg q6 and proton pump inhibitors. Tolerating tube feedings so far. Blood transfusion as needed. 1 Patient's 1/2 sister will be called regarding consenting for blood transfusions and procedures. 6. Low-grade temperature, diaphoresis, blood cultures from 01/08 no growth to date. Urine culture from 01/08 no growth to date. Afebrile 2 to 3 days and white blood cell count down to normal. Sputum culture pending but patient already on broad coverage with cefepime and vancomycin Cardiac enzymes x1 wnl. 7. Hypokalemia: Continue to replace potassium as needed, check labs daily especially while patient is on Lasix. Magnesium level wnl. On free water for mild hypernatremia and prerenal azotemia but also being diuresed with increasing dose of Lasix per pulmonary. Prophylaxis: SCDs for DVT prophylaxis, Protonix for GI prophylaxis Disposition: Still in ICU, re-intubated, sedated, trying to weaning off sedation. Family meeting today did confirm that patient is noncompliant with medication, unfortunately he does have significant behavioral issues including violent behavior. He is a bipolar that seems to be mostly manic most of the time and noncompliant with medications at all. Drug use is an issue. We will try to do our best to have the patient safely extubated soon if not possible he may need tracheostomy and PEG which the 1/2 sister understands and she also made us understand that either way she will not be involved in the primary caregiving of this patient and he will need to be placed at the time of discharge no matter what his condition is as long as he cannot take care of himself. Subjective 24 Hr Interval Summary Free Text/Dictation Patient still with significant agitation, Seroquel resumed 200 mg p.o. nightly yesterday, could be increased to 200 mg twice daily while on other sedations. Follow-up information from mental health facility patient has been going to for his psychiatric care. Still intubated Exam/Review of Systems Vital Signs Vitals Vital Signs Date Time Temp Pulse Resp B/P Pulse Ox O2 Delivery O2 Flow Rate FiO2 01/15/17 11:30 62 18 120/63 100 Mechanical Ventilator 01/15/17 08:00 70 01/15/17 07:00 97.4 01/13/17 15:30 4.0 Intake and Output 01/14/17 01/14/17 01/15/17 15:00 23:00 07:00 Intake Total 1178.812 ml 1565.992 ml 842.96 ml Output Total 485 ml 560 ml 455 ml Balance 693.812 ml 1005.992 ml 387.96 ml Exam Constitutional: other (On multiple sedation however patient still agitated) Respiratory: diminished breath sounds (At bases bilaterally), other (On mechanical ventilation) Cardiovascular: nl pulses, regular rate and rhythm Gastrointestinal: non-tender, other (Tolerating tube feedings), soft Musculoskeletal: nl extremities to inspection Extremities: normal pulses, other (No edema, clubbing or cyanosis) Neurological: other (Sedated, intubated.) Results Result Diagram: 01/15/17 0430 01/15/17 0430 Results 24 hrs Laboratory Tests Test 01/15/17 04:30 White Blood Count 5.5 # Red Blood Count 2.78 L Hemoglobin 7.8 L Hematocrit 25.2 L Mean Corpuscular Volume 90.6 Mean Corpuscular Hemoglobin 28.1 L Mean Corpuscular Hemoglobin Concent 31.0 L Red Cell Distribution Width 14.5 Platelet Count 372 Mean Platelet Volume 10.8 H Neutrophils % 51.4 Lymphocytes % 18.5 Monocytes % 11.5 H Eosinophils % 15.7 H Basophils % 1.3 Nucleated Red Blood Cells % 0.0 Neutrophils # 2.8 Lymphocytes # 1.0 Monocytes # 0.6 Eosinophils # 0.9 H Basophils # 0.1 Nucleated Red Blood Cells # 0.0 Sodium Level 146 H Potassium Level 3.2 L Chloride Level 103 Carbon Dioxide Level 33 H Anion Gap 13 Blood Urea Nitrogen 11 Creatinine 0.59 L Glucose Level 100 Calcium Level 8.1 L Phosphorus Level 5.9 H Magnesium Level 2.0 Medications Medications Current Medications Gabapentin (Neurontin) 600 mg TID PO Last administered on 01/15/17 08:17; Admin Dose 600 MG; Start 12/31/16 at 09:00 Acetaminophen (Tylenol Tab) 650 mg Q4H PRN PO pain/fever Last administered on 01/11/17 07:46; Admin Dose 650 MG; Start 12/31/16 at 01:00 Hydralazine HCl (Apresoline) 25 mg Q6H PRN PO sbp>160; Start 12/31/16 at 01:00 Enalaprilat (Vasotec Iv) 1.25 mg Q6H PRN IV sbp>160; Start 12/31/16 at 01:00 Ondansetron HCl (Zofran Inj) 4 mg Q4H PRN IV nausea; Start 12/31/16 at 01:00 Hydralazine HCl 10 mg 10 mg Q4H PRN IV ELEVATED SYSTOLIC BP Last administered on 01/13/17 16:25; Admin Dose 10 MG; Start 12/31/16 at 05:30 Fentanyl 100 ml @ 2.5 mls/hr TITRATE IV Last administered on 01/15/17 06:12 ; Admin Dose 10 MLS/HR; Start 12/31/16 at 16:30 Midazolam HCl 50 ml @ 1 mls/hr TITRATE IV Last administered on 01/15/17 08:01 ; Admin Dose 10 MLS/HR; Start 12/31/16 at 16:30 Cefepime HCl 50 ml @ 100 mls/hr Q12 IVPB Last administered on 01/15/17 08:17 ; Admin Dose 100 MLS/HR; Start 12/31/16 at 20:00 Vecuronium Slater/Dextrose (Vecuronium Slater/D5W) 100 ml @ 6.03 mls/hr TITRATE IV Last administered on 01/03/17 04:07; Admin Dose 6.03 MLS/HR; Start 01/01/17 at 06:00 Labetalol HCl (Labetalol) 10 mg Q4H PRN IV SBP GREATER THAN 160 Last administered on 01/10/17 22:33; Admin Dose 10 MG; Start 01/01/17 at 12:00 IV Flush (NS 10 ml) 10 ml PRN PRN IV IV PROTOCOL; Start 01/02/17 at 17:00 Lorazepam (Ativan) 2 mg Q2H PRN IV PRN Agitation. Last administered on 16:34; Admin Dose 2 MG; Start 01/04/17 at 09:00 Pantoprazole 40 mg 40 mg BID@06,18 IV Last administered on 01/15/17 06:01; Admin Dose 40 MG; Start 01/06/17 at 09:30 Propofol (Diprivan) 100 ml @ 3.537 mls/ hr Q12H IV Last administered on 10:40; Admin Dose 35.37 MLS/HR; Start 01/10/17 at 09:30 Metoclopramide HCl 10 mg 10 mg Q6 IV Last administered on 01/15/17 11:30; Admin Dose 10 MG; Start 01/11/17 at 12:00 Vancomycin HCl/ Sodium Chloride (Vancocin/NS) 500 ml @ 125 mls/hr Q8H IVPB Last administered on 01/15/17 09:54; Admin Dose 125 MLS/HR; Start 01/11/17 at 18:00 Valproate Sodium (Depakene Liquid Cup) 500 mg QHS NGT Last administered on 20:03; Admin Dose 500 MG; Start 01/11/17 at 21:00 Haloperidol (Haldol) 5 mg Q6 IV Last administered on 01/15/17 11:30; Admin Dose 5 MG; Start 01/12/17 at 12:00 Carbamazepine (Tegretol Susp) 400 mg QHS NGT Last administered on 01/14/17 20 :51; Admin Dose 400 MG; Start 01/12/17 at 21:00 Furosemide (Lasix) 40 mg DAILY IV Last administered on 01/15/17 08:17; Admin Dose 40 MG; Start 01/14/17 at 09:00 Quetiapine Fumarate (Seroquel) 200 mg QHS NGT Last administered on 01/14/17 20:15; Admin Dose 200 MG; Start 01/14/17 at 21:00 TRENT NEWMAN Jan 15, 2017 12:01
--- NOTE | 2017-01-15 12:15 | PN ---
Date/Time of Note Date/Time of Note DATE: 01/15/17 TIME: 12:11 Assessment/Plan VTE Prophylaxis VTE Prophylaxis Intervention: SCD's Lines/Catheters IV Catheter Type (from Nrsg): PICC Line Central line still needed: Yes (meds) Urinary Cath still in place: Yes (monitor output) Reason Cath still needed: other (indicate) (monitor output) Assessment/Plan Chief Complaint/Hosp Course Assessment: Anemia- without significant change Severe encephalopathy Likely secondary to drug use Acute Respiratory failure Intubated and sedated Extubation with Bipap attempted and failed 01/13 after 2 hours pt reintubated Plan: Continue to monitor h/h- low stable plan to transfuse 1 unit today Continue PPI therapy May need PEG in near future Continue all supportive care Patient seen in collaboration with Dr. Miranda Subjective: Course reviewed with nursing staff Patient interviewed and examined All labs, imaging and other results reviewed Patient remains intubated and sedated no significant changes during the night. Family/medical meeting yesterday. expectations were discussed Patient may need poss PEG in near future Exam Constitutional: well developed, sedated and intubated Psych: unable to assess Head: atraumatic, normocephalic Eyes: EOMI, nl conjunctiva, nl lids ENMT: nl external ears & nose, nl lips & teeth, nl nasal mucosa & septum Neck: non-tender, supple Respiratory: Bilateral Rales Cardiovascular: nl pulses, regular rate and rhythm Gastrointestinal: hypoactive bowel sounds, soft Problems: Exam/Review of Systems Vital Signs Vitals Vital Signs Date Time Temp Pulse Resp B/P Pulse Ox O2 Delivery O2 Flow Rate FiO2 01/15/17 11:30 62 18 120/63 100 Mechanical Ventilator 01/15/17 08:00 70 01/15/17 07:00 97.4 01/13/17 15:30 4.0 Intake and Output 01/14/17 01/14/17 01/15/17 15:00 23:00 07:00 Intake Total 1178.812 ml 1565.992 ml 842.96 ml Output Total 485 ml 560 ml 455 ml Balance 693.812 ml 1005.992 ml 387.96 ml Results Result Diagram: 01/15/17 0430 01/15/17 0430 Results 24 hrs Laboratory Tests Test 01/15/17 04:30 White Blood Count 5.5 # Red Blood Count 2.78 L Hemoglobin 7.8 L Hematocrit 25.2 L Mean Corpuscular Volume 90.6 Mean Corpuscular Hemoglobin 28.1 L Mean Corpuscular Hemoglobin Concent 31.0 L Red Cell Distribution Width 14.5 Platelet Count 372 Mean Platelet Volume 10.8 H Neutrophils % 51.4 Lymphocytes % 18.5 Monocytes % 11.5 H Eosinophils % 15.7 H Basophils % 1.3 Nucleated Red Blood Cells % 0.0 Neutrophils # 2.8 Lymphocytes # 1.0 Monocytes # 0.6 Eosinophils # 0.9 H Basophils # 0.1 Nucleated Red Blood Cells # 0.0 Sodium Level 146 H Potassium Level 3.2 L Chloride Level 103 Carbon Dioxide Level 33 H Anion Gap 13 Blood Urea Nitrogen 11 Creatinine 0.59 L Glucose Level 100 Calcium Level 8.1 L Phosphorus Level 5.9 H Magnesium Level 2.0 Medications Medications Current Medications Gabapentin (Neurontin) 600 mg TID PO Last administered on 01/15/17 08:17; Admin Dose 600 MG; Start 12/31/16 at 09:00 Acetaminophen (Tylenol Tab) 650 mg Q4H PRN PO pain/fever Last administered on 01/11/17 07:46; Admin Dose 650 MG; Start 12/31/16 at 01:00 Hydralazine HCl (Apresoline) 25 mg Q6H PRN PO sbp>160; Start 12/31/16 at 01:00 Enalaprilat (Vasotec Iv) 1.25 mg Q6H PRN IV sbp>160; Start 12/31/16 at 01:00 Ondansetron HCl (Zofran Inj) 4 mg Q4H PRN IV nausea; Start 12/31/16 at 01:00 Hydralazine HCl 10 mg 10 mg Q4H PRN IV ELEVATED SYSTOLIC BP Last administered on 01/13/17 16:25; Admin Dose 10 MG; Start 12/31/16 at 05:30 Fentanyl 100 ml @ 2.5 mls/hr TITRATE IV Last administered on 01/15/17 06:12 ; Admin Dose 10 MLS/HR; Start 12/31/16 at 16:30 Midazolam HCl 50 ml @ 1 mls/hr TITRATE IV Last administered on 01/15/17 08:01 ; Admin Dose 10 MLS/HR; Start 12/31/16 at 16:30 Cefepime HCl 50 ml @ 100 mls/hr Q12 IVPB Last administered on 01/15/17 08:17 ; Admin Dose 100 MLS/HR; Start 12/31/16 at 20:00 Vecuronium Pierz/Dextrose (Vecuronium Pierz/D5W) 100 ml @ 6.03 mls/hr TITRATE IV Last administered on 01/03/17 04:07; Admin Dose 6.03 MLS/HR; Start 01/01/17 at 06:00 Labetalol HCl (Labetalol) 10 mg Q4H PRN IV SBP GREATER THAN 160 Last administered on 01/10/17 22:33; Admin Dose 10 MG; Start 01/01/17 at 12:00 IV Flush (NS 10 ml) 10 ml PRN PRN IV IV PROTOCOL; Start 01/02/17 at 17:00 Lorazepam (Ativan) 2 mg Q2H PRN IV PRN Agitation. Last administered on 16:34; Admin Dose 2 MG; Start 01/04/17 at 09:00 Pantoprazole 40 mg 40 mg BID@06,18 IV Last administered on 01/15/17 06:01; Admin Dose 40 MG; Start 01/06/17 at 09:30 Propofol (Diprivan) 100 ml @ 3.537 mls/ hr Q12H IV Last administered on 10:40; Admin Dose 35.37 MLS/HR; Start 01/10/17 at 09:30 Metoclopramide HCl 10 mg 10 mg Q6 IV Last administered on 01/15/17 11:30; Admin Dose 10 MG; Start 01/11/17 at 12:00 Vancomycin HCl/ Sodium Chloride (Vancocin/NS) 500 ml @ 125 mls/hr Q8H IVPB Last administered on 01/15/17 09:54; Admin Dose 125 MLS/HR; Start 01/11/17 at 18:00 Valproate Sodium (Depakene Liquid Cup) 500 mg QHS NGT Last administered on 20:03; Admin Dose 500 MG; Start 01/11/17 at 21:00 Haloperidol (Haldol) 5 mg Q6 IV Last administered on 01/15/17 11:30; Admin Dose 5 MG; Start 01/12/17 at 12:00 Carbamazepine (Tegretol Susp) 400 mg QHS NGT Last administered on 01/14/17 20 :51; Admin Dose 400 MG; Start 01/12/17 at 21:00 Furosemide (Lasix) 40 mg DAILY IV Last administered on 01/15/17 08:17; Admin Dose 40 MG; Start 01/14/17 at 09:00 Quetiapine Fumarate (Seroquel) 200 mg BID NGT ; Start 01/15/17 at 21:00 Furosemide (Lasix) 40 mg ONCE IV ; Start 01/15/17 at 12:30; Stop 01/16/17 at 12:29 JULY MCKENNA Jan 15, 2017 12:15
[2017-01-15] MEDS ORDERED: FUROSEMIDE 40 MG INJ IV SCH (12:30)
[2017-01-15] MEDS: QUETIAPINE 100 MG TAB NGT SCH ×2 (13:00→20:46)
[2017-01-15] MEDS: LORAZEPAM 2 MG INJ IV PRN ×2 (20:41→22:14)
[2017-01-15] MEDS: VALPROIC ACID LIQUID CUP 250 MG/5 ML CUP NGT SCH (20:45)
[2017-01-15] MEDS: carBAMAZEpine SUSP 100 MG/5 ML NGT SCH (20:46)
[2017-01-15] MEDS: traZODone 100 MG TAB PO SCH (20:47)
[2017-01-15] MEDS ORDERED: QUETIAPINE 100 MG TAB NGT SCH (21:00)
[2017-01-15] MEDS ORDERED: carBAMAZEpine SUSP 100 MG/5 ML GTB SCH (21:00)
[2017-01-16] VITALS (44 sets, daily range): BP systolic 92–170; BP diastolic 54–111; PULSE 60–105; RESP 0–32
[2017-01-16] MEDS: HALOPERIDOL 5 MG INJ IV SCH ×4 (00:13→17:36)
[2017-01-16] MEDS: MIDAZOLAM (DRIP) 50 mg/50 mL 50 ML IV SCH ×5 (00:46→21:25)
[2017-01-16] MEDS: PROPOFOL 100 ML IV SCH ×8 (00:47→21:25)
[2017-01-16] MEDS: FENTAnyl (DRIP) 1000 mcg/100mL 100 ML IV SCH ×3 (00:47→20:25)
[2017-01-16] MEDS: METOCLOPRAMIDE 10 MG INJ IV SCH ×4 (00:55→17:36)
[2017-01-16] MEDS: IPRATROPIUM (HFA) 12.9 GM INHALER INH SCH ×4 (01:55→19:46)
[2017-01-16] MEDS: ALBUTEROL 18 GM INHALER INH SCH ×4 (01:55→19:45)
[2017-01-16] MEDS: VANCOMYCIN 2 GM in SOD CHLORIDE 0.9% 500 ML IVPB SCH ×2 (02:37→10:33)
[2017-01-16] MEDS: LORAZEPAM 2 MG INJ IV PRN ×3 (03:58→20:14)
[2017-01-16 06:01] LABS: BASOPHIL # 0.1 10^3/ul (0.0-0.1); BASOPHILS % 0.7 % (0.0-2.0); EOSINOPHILS # 0.7 10^3/ul (0.0-0.5); EOSINOPHILS % 9.8 % (0.0-7.0); HEMATOCRIT 24.7 % (42.0-52.0); HEMOGLOBIN 7.9 g/dl (14.0-18.0); LYMPHOCYTES # 0.8 10^3/ul (0.8-2.9); LYMPHOCYTES % 11.5 % (15.0-51.0); MEAN CORPUSCULAR HEMOGLOBIN 28.6 pg (29.0-33.0); MEAN CORPUSCULAR VOLUME 89.5 fl (82.0-101.0); MEAN PLATELET VOLUME 10.8 fl (7.4-10.4); MONOCYTE # 0.6 10^3/ul (0.3-0.9); NEUTROPHIL # 4.8 10^3/ul (1.6-7.5); NEUTROPHILS % 69.1 % (39.0-77.0); PLATELET COUNT 350 10^3/UL (140-415); RED BLOOD COUNT 2.76 10^6/ul (4.70-6.10); RED CELL DISTRIBUTION WIDTH 14.3 % (11.5-14.5)
[2017-01-16] MEDS: PANTOPRAZOLE 40 MG INJ IV SCH ×2 (06:35→17:36)
[2017-01-16 06:40] LABS: ALBUMIN/GLOBULIN RATIO 1.07; BILIRUBIN,INDIRECT 0.1 mg/dl (0-1.1); BILIRUBIN,TOTAL 0.1 mg/dl (0.2-1.3); CALCIUM 7.5 mg/dl (8.4-10.2); CREATININE 0.6 mg/dl (0.61-1.24); POTASSIUM 3.3 mmol/L (3.5-5.1); TOTAL PROTEIN 5.8 g/dl (6.1-8.1)
[2017-01-16 06:51] LABS: MAGNESIUM 1.7 mg/dl (1.7-2.5); PHOSPHORUS 4.6 mg/dl (2.5-4.9)
--- NOTE | 2017-01-16 07:20 | PN ---
Date/Time of Note Date/Time of Note DATE: 01/16/17 TIME: 07:14 Assessment/Plan VTE Prophylaxis VTE Prophylaxis Intervention: LMWH Lines/Catheters IV Catheter Type (from Nrsg): PICC Line Central line still needed: Yes Urinary Cath still in place: Yes Reason Cath still needed: other (indicate) Assessment/Plan Assessment/Plan 1. Severe encephalopathy 2ry to drug abuse likely Bath salts and/or synthetic marijuana. Patient still with episodes of agitation and still intubated, on sedation, attempt to increase antipsychotics to control behavior and titrate down sedation. As sedation can be weaned, then consider removal of vent will check thyroid and adrenal status for possible organic causes of prolonged agitation 2. Acute respiratory Failure 2ry to severe Encephalopathy andsedation (b) cont Rx for possible aspiration 3. Bipolar disorder: Likely noncompliant with psychiatric medications. Medication resumed and being titrated 4. Right foot Lisfranc fracture: Pain control and ? splint 5. Anemia: Hemoglobin variables/p 1 unit PRBC Lovenox discontinued, SCDs to lower extremities. 6. Hypokalemia: Continue to replace potassium as needed, check labs daily especially while patient is on Lasix. Magnesium level wnl. On free water for mild hypernatremia and prerenal azotemia but also being diuresed with increasing dose of Lasix per pulmonary. (b) hyperNa, wean from lasix Prophylaxis: SCDs for DVT prophylaxis, Protonix for GI prophylaxis remove cobian Subjective 24 Hr Interval Summary Free Text/Dictation intubzated, sedated, no response to voice or noxious stimuli Exam/Review of Systems Vital Signs Vitals Vital Signs Date Time Temp Pulse Resp B/P Pulse Ox O2 Delivery O2 Flow Rate FiO2 01/16/17 05:53 74 20 98 40 01/16/17 03:30 143/93 Mechanical Ventilator 01/16/17 00:00 99.4 01/13/17 15:30 4.0 Intake and Output 01/15/17 01/15/17 01/16/17 15:00 23:00 07:00 Intake Total 1698.33 ml 1413.33 ml 556.48 ml Output Total 2300 ml 1960 ml 355 ml Balance -601.67 ml -546.67 ml 201.48 ml Exam Head: atraumatic, normocephalic Respiratory: clear to auscultation Cardiovascular: regular rate and rhythm Gastrointestinal: non-tender, soft Extremities: normal pulses Results Result Diagram: 01/16/17 0513 01/16/17 0513 Results 24 hrs Laboratory Tests Test 01/15/17 16:57 01/16/17 05:06 01/16/17 05:13 Potassium Level 3.8 3.3 L Lab Scanned Report BLOOD TRANSFUSION White Blood Count 7.0 # Red Blood Count 2.76 L Hemoglobin 7.9 L Hematocrit 24.7 L Mean Corpuscular Volume 89.5 Mean Corpuscular Hemoglobin 28.6 L Mean Corpuscular Hemoglobin Concent 32.0 Red Cell Distribution Width 14.3 Platelet Count 350 Mean Platelet Volume 10.8 H Neutrophils % 69.1 Lymphocytes % 11.5 L Monocytes % 8.0 Eosinophils % 9.8 H Basophils % 0.7 Nucleated Red Blood Cells % 0.0 Neutrophils # 4.8 Lymphocytes # 0.8 Monocytes # 0.6 Eosinophils # 0.7 H Basophils # 0.1 Nucleated Red Blood Cells # 0.0 Sodium Level 145 H Chloride Level 105 Carbon Dioxide Level 31 Anion Gap 12 Blood Urea Nitrogen 7 Creatinine 0.60 L Glucose Level 87 Calcium Level 7.5 L Phosphorus Level 4.6 Magnesium Level 1.7 Total Bilirubin 0.1 L Direct Bilirubin 0.00 Indirect Bilirubin 0.1 Aspartate Amino Transf (AST/SGOT) 29 Alanine Aminotransferase (ALT/SGPT) 47 Alkaline Phosphatase 241 H Total Protein 5.8 L Albumin 3.0 L Globulin 2.80 Albumin/Globulin Ratio 1.07 Medications Medications Current Medications Acetaminophen (Tylenol Tab) 650 mg Q4H PRN PO pain/fever Last administered on 01/11/17 07:46; Admin Dose 650 MG; Start 12/31/16 at 01:00 Hydralazine HCl (Apresoline) 25 mg Q6H PRN PO sbp>160; Start 12/31/16 at 01:00 Enalaprilat (Vasotec Iv) 1.25 mg Q6H PRN IV sbp>160; Start 12/31/16 at 01:00 Ondansetron HCl (Zofran Inj) 4 mg Q4H PRN IV nausea; Start 12/31/16 at 01:00 Hydralazine HCl 10 mg 10 mg Q4H PRN IV ELEVATED SYSTOLIC BP Last administered on 01/13/17 16:25; Admin Dose 10 MG; Start 12/31/16 at 05:30 Fentanyl 100 ml @ 2.5 mls/hr TITRATE IV Last administered on 01/16/17 00:47 ; Admin Dose 10 MLS/HR; Start 12/31/16 at 16:30 Midazolam HCl 50 ml @ 1 mls/hr TITRATE IV Last administered on 01/16/17 00:46 ; Admin Dose 10 MLS/HR; Start 12/31/16 at 16:30 Cefepime HCl 50 ml @ 100 mls/hr Q12 IVPB Last administered on 01/15/17 20:47 ; Admin Dose 100 MLS/HR; Start 12/31/16 at 20:00 Vecuronium Daniels/Dextrose (Vecuronium Daniels/D5W) 100 ml @ 6.03 mls/hr TITRATE IV Last administered on 01/03/17 04:07; Admin Dose 6.03 MLS/HR; Start 01/01/17 at 06:00 Labetalol HCl (Labetalol) 10 mg Q4H PRN IV SBP GREATER THAN 160 Last administered on 01/10/17 22:33; Admin Dose 10 MG; Start 01/01/17 at 12:00 IV Flush (NS 10 ml) 10 ml PRN PRN IV IV PROTOCOL; Start 01/02/17 at 17:00 Lorazepam (Ativan) 2 mg Q2H PRN IV PRN Agitation. Last administered on 03:58; Admin Dose 2 MG; Start 01/04/17 at 09:00 Pantoprazole 40 mg 40 mg BID@06,18 IV Last administered on 01/16/17 06:35; Admin Dose 40 MG; Start 01/06/17 at 09:30 Propofol (Diprivan) 100 ml @ 3.537 mls/ hr Q12H IV Last administered on 06:20; Admin Dose 35.37 MLS/HR; Start 01/10/17 at 09:30 Metoclopramide HCl 10 mg 10 mg Q6 IV Last administered on 01/16/17 06:35; Admin Dose 10 MG; Start 01/11/17 at 12:00 Vancomycin HCl/ Sodium Chloride (Vancocin/NS) 500 ml @ 125 mls/hr Q8H IVPB Last administered on 01/16/17 02:37; Admin Dose 125 MLS/HR; Start 01/11/17 at 18:00 Valproate Sodium (Depakene Liquid Cup) 500 mg QHS NGT Last administered on 20:45; Admin Dose 500 MG; Start 01/11/17 at 21:00 Haloperidol (Haldol) 5 mg Q6 IV Last administered on 01/16/17 06:36; Admin Dose 5 MG; Start 01/12/17 at 12:00 Carbamazepine (Tegretol Susp) 400 mg QHS NGT Last administered on 01/15/17 20 :46; Admin Dose 400 MG; Start 01/12/17 at 21:00 Furosemide (Lasix) 40 mg DAILY IV Last administered on 01/15/17 08:17; Admin Dose 40 MG; Start 01/14/17 at 09:00 Furosemide (Lasix) 40 mg ONCE IV Last administered on 01/15/17 17:03; Admin Dose 40 MG; Start 01/15/17 at 12:30; Stop 01/16/17 at 12:29 Carbamazepine (Tegretol Susp) 200 mg QAM GTB ; Start 01/16/17 at 09:00 Trazodone HCl (Desyrel) 150 mg HS PO Last administered on 01/15/17 20:47; Admin Dose 150 MG; Start 01/15/17 at 21:00 Quetiapine Fumarate (Seroquel) 200 mg TID NGT Last administered on 01/15/17 20:46; Admin Dose 200 MG; Start 01/15/17 at 13:00 JEAN MARIE BRAGG MD Jan 16, 2017 07:20
[2017-01-16 08:54] LABS: THYROID STIMULATING HORMONE 2.11 MIU/L (0.465-4.680)
[2017-01-16] MEDS: QUETIAPINE 100 MG TAB NGT SCH ×3 (09:52→20:14)
[2017-01-16] MEDS: carBAMAZEpine SUSP 100 MG/5 ML GTB SCH (09:53)
[2017-01-16] MEDS: CEFEPIME 1GM/50 ML (PMX) 50 ML IVPB SCH ×2 (09:53→20:15)
--- NOTE | 2017-01-16 11:10 | CONS ---
Date/Time of Note Date/Time of Note DATE: 01/16/17 TIME: 11:09 Consult Date/Type/Reason Admit Date/Time Dec 31, 2016 at 00:30 Initial Consult Date 12/31/16 Type of Consultation: Pulm/CCM Subjective Patient remains stable intubated on mechanical ventilation. Segments of being adjusted. Objective Vital Signs Date Time Temp Pulse Resp B/P Pulse Ox O2 Delivery O2 Flow Rate FiO2 01/16/17 11:00 60 0 104/60 Mechanical Ventilator 01/16/17 10:00 96 01/16/17 08:00 40 01/16/17 08:00 98.4 01/13/17 15:30 4.0 Intake and Output 01/15/17 01/15/17 01/16/17 15:00 23:00 07:00 Intake Total 1698.33 ml 1413.33 ml 852.96 ml Output Total 2300 ml 1960 ml 630 ml Balance -601.67 ml -546.67 ml 222.96 ml Exam GENERAL: Well-nourished well-developed gentleman orally intubated on mechanical ventilation VITAL SIGNS: see below. HEENT: Pupils equal, round, and reactive to light. CARDIAC: S1, S2, 1/6 systolic ejection murmur CHEST: Diminished air entry bilaterally. ABDOMEN: Mildly distended. Bowel sounds present no guarding or rebound EXTREMITIES: No cyanosis, clubbing edema +1 NEUROLOGIC: Generalized weakness Results/Medications Result Diagram: 01/16/17 0513 01/16/17 0513 Results 24 hrs Laboratory Tests Test 01/15/17 16:57 01/16/17 05:06 01/16/17 05:13 Potassium Level 3.8 3.3 L Lab Scanned Report BLOOD TRANSFUSION White Blood Count 7.0 # Red Blood Count 2.76 L Hemoglobin 7.9 L Hematocrit 24.7 L Mean Corpuscular Volume 89.5 Mean Corpuscular Hemoglobin 28.6 L Mean Corpuscular Hemoglobin Concent 32.0 Red Cell Distribution Width 14.3 Platelet Count 350 Mean Platelet Volume 10.8 H Neutrophils % 69.1 Lymphocytes % 11.5 L Monocytes % 8.0 Eosinophils % 9.8 H Basophils % 0.7 Nucleated Red Blood Cells % 0.0 Neutrophils # 4.8 Lymphocytes # 0.8 Monocytes # 0.6 Eosinophils # 0.7 H Basophils # 0.1 Nucleated Red Blood Cells # 0.0 Sodium Level 145 H Chloride Level 105 Carbon Dioxide Level 31 Anion Gap 12 Blood Urea Nitrogen 7 Creatinine 0.60 L Glucose Level 87 Calcium Level 7.5 L Phosphorus Level 4.6 Magnesium Level 1.7 Total Bilirubin 0.1 L Direct Bilirubin 0.00 Indirect Bilirubin 0.1 Aspartate Amino Transf (AST/SGOT) 29 Alanine Aminotransferase (ALT/SGPT) 47 Alkaline Phosphatase 241 H Total Protein 5.8 L Albumin 3.0 L Globulin 2.80 Albumin/Globulin Ratio 1.07 Thyroid Stimulating Hormone (TSH) 2.110 Random Cortisol 13.1 Medications Current Medications Acetaminophen (Tylenol Tab) 650 mg Q4H PRN PO pain/fever Last administered on 01/11/17 07:46; Admin Dose 650 MG; Start 12/31/16 at 01:00 Hydralazine HCl (Apresoline) 25 mg Q6H PRN PO sbp>160; Start 12/31/16 at 01:00 Enalaprilat (Vasotec Iv) 1.25 mg Q6H PRN IV sbp>160; Start 12/31/16 at 01:00 Ondansetron HCl (Zofran Inj) 4 mg Q4H PRN IV nausea; Start 12/31/16 at 01:00 Hydralazine HCl 10 mg 10 mg Q4H PRN IV ELEVATED SYSTOLIC BP Last administered on 01/13/17 16:25; Admin Dose 10 MG; Start 12/31/16 at 05:30 Fentanyl 100 ml @ 2.5 mls/hr TITRATE IV Last administered on 01/16/17 00:47 ; Admin Dose 10 MLS/HR; Start 12/31/16 at 16:30 Midazolam HCl 50 ml @ 1 mls/hr TITRATE IV Last administered on 01/16/17 11:05 ; Admin Dose 10 MLS/HR; Start 12/31/16 at 16:30 Cefepime HCl 50 ml @ 100 mls/hr Q12 IVPB Last administered on 01/16/17 09:53 ; Admin Dose 100 MLS/HR; Start 12/31/16 at 20:00 Vecuronium [place]/Dextrose (Vecuronium [place]/D5W) 100 ml @ 6.03 mls/hr TITRATE IV Last administered on 01/03/17 04:07; Admin Dose 6.03 MLS/HR; Start 01/01/17 at 06:00 Labetalol HCl (Labetalol) 10 mg Q4H PRN IV SBP GREATER THAN 160 Last administered on 01/10/17 22:33; Admin Dose 10 MG; Start 01/01/17 at 12:00 IV Flush (NS 10 ml) 10 ml PRN PRN IV IV PROTOCOL; Start 01/02/17 at 17:00 Lorazepam (Ativan) 2 mg Q2H PRN IV PRN Agitation. Last administered on 03:58; Admin Dose 2 MG; Start 01/04/17 at 09:00 Pantoprazole 40 mg 40 mg BID@06,18 IV Last administered on 01/16/17 06:35; Admin Dose 40 MG; Start 01/06/17 at 09:30 Propofol (Diprivan) 100 ml @ 3.537 mls/ hr Q12H IV Last administered on 11:00; Admin Dose 31.833 MLS/HR; Start 01/10/17 at 09:30 Metoclopramide HCl 10 mg 10 mg Q6 IV Last administered on 01/16/17 06:35; Admin Dose 10 MG; Start 01/11/17 at 12:00 Vancomycin HCl/ Sodium Chloride (Vancocin/NS) 500 ml @ 125 mls/hr Q8H IVPB Last administered on 01/16/17 10:33; Admin Dose 125 MLS/HR; Start 01/11/17 at 18:00 Valproate Sodium (Depakene Liquid Cup) 500 mg QHS NGT Last administered on 20:45; Admin Dose 500 MG; Start 01/11/17 at 21:00 Haloperidol (Haldol) 5 mg Q6 IV Last administered on 01/16/17 06:36; Admin Dose 5 MG; Start 01/12/17 at 12:00 Carbamazepine (Tegretol Susp) 400 mg QHS NGT Last administered on 01/15/17 20 :46; Admin Dose 400 MG; Start 01/12/17 at 21:00 Furosemide (Lasix) 40 mg ONCE IV Last administered on 01/15/17 17:03; Admin Dose 40 MG; Start 01/15/17 at 12:30; Stop 01/16/17 at 12:29 Carbamazepine (Tegretol Susp) 200 mg QAM GTB Last administered on 01/16/17 09 :53; Admin Dose 200 MG; Start 01/16/17 at 09:00 Trazodone HCl (Desyrel) 150 mg HS PO Last administered on 01/15/17 20:47; Admin Dose 150 MG; Start 01/15/17 at 21:00 Quetiapine Fumarate (Seroquel) 200 mg TID NGT Last administered on 01/16/17 09:52; Admin Dose 200 MG; Start 01/15/17 at 13:00 Assessment/Plan Chief Complaint/Hosp Course IMP: 1. Hypoxic respiratory failure/Vent Dependence 2. Acute Lung Injury/ARDS 3. History of drug overdose 4. 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 5. Likely ALEX 6. Anemia RECS: 1. T mechanical ventilation. Patient unlikely to be safely liberated from mechanical ventilation, I would recommend tracheostomy and PEG tube placement. 2. Vent--> change to VC+; rate 20; Vt 500; PEEP 7 3. d/c iVF replace potassium. Potassium protocol. 4. TF/Free H20 5. Lasix daily 6. Adjust psych medications. Problems: BRIANNA SAAVEDRA MD, [facility] Jan 16, 2017 11:09
--- NOTE | 2017-01-16 13:34 | PN ---
Date/Time of Note Date/Time of Note DATE: 01/16/17 TIME: 13:29 Assessment/Plan VTE Prophylaxis VTE Prophylaxis Intervention: SCD's Lines/Catheters IV Catheter Type (from Nrs): PICC Line Central line still needed: Yes (meds) Urinary Cath still in place: Yes (monitor output) Reason Cath still needed: other (indicate) (monitor output) Assessment/Plan Chief Complaint/Hosp Course Assessment: Anemia-without significant post blood transfusion Severe encephalopathy Likely secondary to drug use Acute Respiratory failure Intubated and sedated Extubation with Bipap attempted and failed 01/13 after 2 hours pt reintubated Plan: Continue PPI therapy May need PEG in near future Hgb without significant change post blood transfusion No overt GI bleed noted Continue all supportive care Patient seen in collaboration with Dr. Miranda Subjective: Course reviewed with nursing staff Patient interviewed and examined All labs, imaging and other results reviewed Patient remains intubated and sedated becoming increasing agitated when weaned down on sedation Patient may need poss PEG in near future Will continue to monitor need for endoscopies Exam Constitutional: well developed, sedated and intubated Psych: unable to assess Head: atraumatic, normocephalic Eyes: EOMI, nl conjunctiva, nl lids ENMT: nl external ears & nose, nl lips & teeth, nl nasal mucosa & septum Neck: non-tender, supple Respiratory: Bilateral Rales Cardiovascular: nl pulses, regular rate and rhythm Gastrointestinal: hypoactive bowel sounds, soft Problems: Exam/Review of Systems Vital Signs Vitals Vital Signs Date Time Temp Pulse Resp B/P Pulse Ox O2 Delivery O2 Flow Rate FiO2 01/16/17 11:00 60 0 104/60 Mechanical Ventilator 01/16/17 10:00 96 01/16/17 08:00 40 01/16/17 08:00 98.4 01/13/17 15:30 4.0 Intake and Output 01/15/17 01/15/17 01/16/17 15:00 23:00 07:00 Intake Total 1698.33 ml 1413.33 ml 852.96 ml Output Total 2300 ml 1960 ml 630 ml Balance -601.67 ml -546.67 ml 222.96 ml Results Result Diagram: 01/16/17 0513 01/16/17 0513 Results 24 hrs Laboratory Tests Test 01/15/17 16:57 01/16/17 05:06 01/16/17 05:13 Potassium Level 3.8 3.3 L Lab Scanned Report BLOOD TRANSFUSION White Blood Count 7.0 # Red Blood Count 2.76 L Hemoglobin 7.9 L Hematocrit 24.7 L Mean Corpuscular Volume 89.5 Mean Corpuscular Hemoglobin 28.6 L Mean Corpuscular Hemoglobin Concent 32.0 Red Cell Distribution Width 14.3 Platelet Count 350 Mean Platelet Volume 10.8 H Neutrophils % 69.1 Lymphocytes % 11.5 L Monocytes % 8.0 Eosinophils % 9.8 H Basophils % 0.7 Nucleated Red Blood Cells % 0.0 Neutrophils # 4.8 Lymphocytes # 0.8 Monocytes # 0.6 Eosinophils # 0.7 H Basophils # 0.1 Nucleated Red Blood Cells # 0.0 Sodium Level 145 H Chloride Level 105 Carbon Dioxide Level 31 Anion Gap 12 Blood Urea Nitrogen 7 Creatinine 0.60 L Glucose Level 87 Calcium Level 7.5 L Phosphorus Level 4.6 Magnesium Level 1.7 Total Bilirubin 0.1 L Direct Bilirubin 0.00 Indirect Bilirubin 0.1 Aspartate Amino Transf (AST/SGOT) 29 Alanine Aminotransferase (ALT/SGPT) 47 Alkaline Phosphatase 241 H Total Protein 5.8 L Albumin 3.0 L Globulin 2.80 Albumin/Globulin Ratio 1.07 Thyroid Stimulating Hormone (TSH) 2.110 Random Cortisol 13.1 Medications Medications Current Medications Acetaminophen (Tylenol Tab) 650 mg Q4H PRN PO pain/fever Last administered on 01/11/17 07:46; Admin Dose 650 MG; Start 12/31/16 at 01:00 Hydralazine HCl (Apresoline) 25 mg Q6H PRN PO sbp>160; Start 12/31/16 at 01:00 Enalaprilat (Vasotec Iv) 1.25 mg Q6H PRN IV sbp>160; Start 12/31/16 at 01:00 Ondansetron HCl (Zofran Inj) 4 mg Q4H PRN IV nausea; Start 12/31/16 at 01:00 Hydralazine HCl 10 mg 10 mg Q4H PRN IV ELEVATED SYSTOLIC BP Last administered on 01/13/17 16:25; Admin Dose 10 MG; Start 12/31/16 at 05:30 Fentanyl 100 ml @ 2.5 mls/hr TITRATE IV Last administered on 01/16/17 11:16 ; Admin Dose 10 MLS/HR; Start 12/31/16 at 16:30 Midazolam HCl 50 ml @ 1 mls/hr TITRATE IV Last administered on 01/16/17 11:05 ; Admin Dose 10 MLS/HR; Start 12/31/16 at 16:30 Cefepime HCl 50 ml @ 100 mls/hr Q12 IVPB Last administered on 01/16/17 09:53 ; Admin Dose 100 MLS/HR; Start 12/31/16 at 20:00 Vecuronium [place]/Dextrose (Vecuronium [place]/D5W) 100 ml @ 6.03 mls/hr TITRATE IV Last administered on 01/03/17 04:07; Admin Dose 6.03 MLS/HR; Start 01/01/17 at 06:00 Labetalol HCl (Labetalol) 10 mg Q4H PRN IV SBP GREATER THAN 160 Last administered on 01/10/17 22:33; Admin Dose 10 MG; Start 01/01/17 at 12:00 IV Flush (NS 10 ml) 10 ml PRN PRN IV IV PROTOCOL; Start 01/02/17 at 17:00 Lorazepam (Ativan) 2 mg Q2H PRN IV PRN Agitation. Last administered on 03:58; Admin Dose 2 MG; Start 01/04/17 at 09:00 Pantoprazole 40 mg 40 mg BID@06,18 IV Last administered on 01/16/17 06:35; Admin Dose 40 MG; Start 01/06/17 at 09:30 Propofol (Diprivan) 100 ml @ 3.537 mls/ hr Q12H IV Last administered on 11:00; Admin Dose 31.833 MLS/HR; Start 01/10/17 at 09:30 Metoclopramide HCl 10 mg 10 mg Q6 IV Last administered on 01/16/17 12:39; Admin Dose 10 MG; Start 01/11/17 at 12:00 Vancomycin HCl/ Sodium Chloride (Vancocin/NS) 500 ml @ 125 mls/hr Q8H IVPB Last administered on 01/16/17 10:33; Admin Dose 125 MLS/HR; Start 01/11/17 at 18:00 Valproate Sodium (Depakene Liquid Cup) 500 mg QHS NGT Last administered on 20:45; Admin Dose 500 MG; Start 01/11/17 at 21:00 Haloperidol (Haldol) 5 mg Q6 IV Last administered on 01/16/17 12:38; Admin Dose 5 MG; Start 01/12/17 at 12:00 Carbamazepine (Tegretol Susp) 400 mg QHS NGT Last administered on 01/15/17 20 :46; Admin Dose 400 MG; Start 01/12/17 at 21:00 Carbamazepine (Tegretol Susp) 200 mg QAM GTB Last administered on 01/16/17 09 :53; Admin Dose 200 MG; Start 01/16/17 at 09:00 Trazodone HCl (Desyrel) 150 mg HS PO Last administered on 01/15/17 20:47; Admin Dose 150 MG; Start 01/15/17 at 21:00 Quetiapine Fumarate (Seroquel) 200 mg TID NGT Last administered on 01/16/17 12:40; Admin Dose 200 MG; Start 01/15/17 at 13:00 JULY MCKENNA Jan 16, 2017 13:34
[2017-01-16] MEDS: traZODone 100 MG TAB PO SCH (20:14)
[2017-01-16] MEDS: VALPROIC ACID LIQUID CUP 250 MG/5 ML CUP NGT SCH (20:15)
[2017-01-16] MEDS: carBAMAZEpine SUSP 100 MG/5 ML NGT SCH (20:16)
[2017-01-17] VITALS (37 sets, daily range): BP systolic 103–181; BP diastolic 64–104; PULSE 73–106; RESP 15–32
[2017-01-17] MEDS: PROPOFOL 100 ML IV SCH ×9 (00:11→22:21)
[2017-01-17] MEDS: METOCLOPRAMIDE 10 MG INJ IV SCH ×5 (00:14→23:12)
[2017-01-17] MEDS: HALOPERIDOL 5 MG INJ IV SCH ×5 (00:14→23:12)
[2017-01-17] MEDS: VANCOMYCIN 1.25 GM in SOD CHLORIDE 0.9% 250 ML IVPB SCH ×2 (00:14→08:57)
[2017-01-17] MEDS: LORAZEPAM 2 MG INJ IV PRN ×2 (00:32→04:52)
[2017-01-17] MEDS: ALBUTEROL 18 GM INHALER INH SCH ×4 (01:11→19:56)
[2017-01-17] MEDS: IPRATROPIUM (HFA) 12.9 GM INHALER INH SCH ×4 (01:11→19:56)
[2017-01-17] MEDS: MIDAZOLAM (DRIP) 50 mg/50 mL 50 ML IV SCH ×4 (02:59→18:40)
[2017-01-17] MEDS: PANTOPRAZOLE 40 MG INJ IV SCH ×2 (05:03→17:37)
[2017-01-17 05:15] LABS: BASOPHIL # 0.1 10^3/ul (0.0-0.1); EOSINOPHILS % 12.5 % (0.0-7.0); HEMATOCRIT 30.3 % (42.0-52.0); HEMOGLOBIN 9.6 g/dl (14.0-18.0); LYMPHOCYTES % 12.6 % (15.0-51.0); MEAN CORPUSCULAR HEMOGLOBIN 28.1 pg (29.0-33.0); MEAN CORPUSCULAR HGB CONC 31.7 g/dl (32.0-37.0); MEAN CORPUSCULAR VOLUME 88.6 fl (82.0-101.0); MONOCYTE # 0.8 10^3/ul (0.3-0.9); MONOCYTES % 9.3 % (0.0-11.0); NEUTROPHIL # 5.1 10^3/ul (1.6-7.5); NEUTROPHILS % 63.4 % (39.0-77.0); PLATELET COUNT 420 10^3/UL (140-415); RED BLOOD COUNT 3.42 10^6/ul (4.70-6.10); RED CELL DISTRIBUTION WIDTH 13.9 % (11.5-14.5); WHITE BLOOD COUNT 8.1 10^3/ul (4.8-10.8)
[2017-01-17] MEDS: FENTAnyl (DRIP) 1000 mcg/100mL 100 ML IV SCH ×2 (05:36→16:10)
[2017-01-17 05:57] LABS: CALCIUM 8.6 mg/dl (8.4-10.2); CREATININE 0.63 mg/dl (0.61-1.24); POTASSIUM 3.8 mmol/L (3.5-5.1)
--- NOTE | 2017-01-17 07:14 | RADRPT ---
PROCEDURE: XR Chest. CLINICAL INDICATION: Shortness of breath. TECHNIQUE: Single frontal view. COMPARISON: 01/14/2017. FINDINGS: The endotracheal tube, nasogastric tube, and right arm PICC line remain in satisfactory position. Th ere is bilateral interstitial and alveolar disease consistent with pulmonary edema, slightly improve d. Left basilar consolidation is slightly improved. The heart size is normal. There are small bilateral pleural effusions. There is no pneumothorax. IMPRESSION: 1. Slightly improved appearance of the lungs. 2. No other change from 01/14/2017. RPTAT: QQ .Jerry Arellano MD, MD Date Time Electronically viewed and signed by .Jerry Arellano MD, MD on 01/17/2017 07:14 .R/
[2017-01-17] MEDS: QUETIAPINE 100 MG TAB NGT SCH ×3 (08:40→20:27)
[2017-01-17] MEDS: CEFEPIME 1GM/50 ML (PMX) 50 ML IVPB SCH (08:40)
[2017-01-17] MEDS: carBAMAZEpine SUSP 100 MG/5 ML GTB SCH (08:57)
--- NOTE | 2017-01-17 11:06 | CONS ---
Date/Time of Note Date/Time of Note DATE: 01/17/17 TIME: 11:06 Consult Date/Type/Reason Admit Date/Time Dec 31, 2016 at 00:30 Initial Consult Date 12/31/16 Type of Consultation: Pulm/CCM Subjective No changes. Significant agitation on lower doses of propofol. Objective Vital Signs Date Time Temp Pulse Resp B/P Pulse Ox O2 Delivery O2 Flow Rate FiO2 01/17/17 10:30 82 21 115/69 94 Mechanical Ventilator 01/17/17 08:00 98.8 01/17/17 08:00 40 01/13/17 15:30 4.0 Intake and Output 01/16/17 01/16/17 01/17/17 15:00 23:00 07:00 Intake Total 1039.905 ml 723.313 ml 993.56 ml Output Total 600 ml 650 ml 595 ml Balance 439.905 ml 73.313 ml 398.56 ml Exam GENERAL: Well-nourished well-developed gentleman orally intubated on mechanical ventilation VITAL SIGNS: see below. HEENT: Pupils equal, round, and reactive to light. CARDIAC: S1, S2, 1/6 systolic ejection murmur CHEST: Diminished air entry bilaterally. ABDOMEN: Mildly distended. Bowel sounds present no guarding or rebound EXTREMITIES: No cyanosis, clubbing edema +1 NEUROLOGIC: Generalized weakness Results/Medications Result Diagram: 01/17/17 0400 01/17/17 0400 Results 24 hrs Laboratory Tests Test 01/16/17 16:44 01/17/17 04:00 Vancomycin Level Trough 29.1 *H White Blood Count 8.1 Red Blood Count 3.42 #L Hemoglobin 9.6 #L Hematocrit 30.3 #L Mean Corpuscular Volume 88.6 Mean Corpuscular Hemoglobin 28.1 L Mean Corpuscular Hemoglobin Concent 31.7 L Red Cell Distribution Width 13.9 Platelet Count 420 H Mean Platelet Volume 11.0 H Neutrophils % 63.4 Lymphocytes % 12.6 L Monocytes % 9.3 Eosinophils % 12.5 H Basophils % 1.0 Nucleated Red Blood Cells % 0.0 Neutrophils # 5.1 Lymphocytes # 1.0 Monocytes # 0.8 Eosinophils # 1.0 H Basophils # 0.1 Nucleated Red Blood Cells # 0.0 Sodium Level 144 Potassium Level 3.8 Chloride Level 101 Carbon Dioxide Level 30 Anion Gap 17 H Blood Urea Nitrogen 9 Creatinine 0.63 Glucose Level 82 Calcium Level 8.6 Medications Current Medications Acetaminophen (Tylenol Tab) 650 mg Q4H PRN PO pain/fever Last administered on 01/11/17 07:46; Admin Dose 650 MG; Start 12/31/16 at 01:00 Hydralazine HCl (Apresoline) 25 mg Q6H PRN PO sbp>160; Start 12/31/16 at 01:00 Enalaprilat (Vasotec Iv) 1.25 mg Q6H PRN IV sbp>160; Start 12/31/16 at 01:00 Ondansetron HCl (Zofran Inj) 4 mg Q4H PRN IV nausea; Start 12/31/16 at 01:00 Hydralazine HCl 10 mg 10 mg Q4H PRN IV ELEVATED SYSTOLIC BP Last administered on 01/13/17 16:25; Admin Dose 10 MG; Start 12/31/16 at 05:30 Fentanyl 100 ml @ 2.5 mls/hr TITRATE IV Last administered on 01/17/17 05:36 ; Admin Dose 10 MLS/HR; Start 12/31/16 at 16:30 Midazolam HCl 50 ml @ 1 mls/hr TITRATE IV Last administered on 01/17/17 09:27 ; Admin Dose 10 MLS/HR; Start 12/31/16 at 16:30 Cefepime HCl 50 ml @ 100 mls/hr Q12 IVPB Last administered on 01/17/17 08:40 ; Admin Dose 100 MLS/HR; Start 12/31/16 at 20:00 Vecuronium [place]/Dextrose (Vecuronium [place]/D5W) 100 ml @ 6.03 mls/hr TITRATE IV Last administered on 01/03/17 04:07; Admin Dose 6.03 MLS/HR; Start 01/01/17 at 06:00 Labetalol HCl (Labetalol) 10 mg Q4H PRN IV SBP GREATER THAN 160 Last administered on 01/10/17 22:33; Admin Dose 10 MG; Start 01/01/17 at 12:00 IV Flush (NS 10 ml) 10 ml PRN PRN IV IV PROTOCOL; Start 01/02/17 at 17:00 Lorazepam (Ativan) 2 mg Q2H PRN IV PRN Agitation. Last administered on 04:52; Admin Dose 2 MG; Start 01/04/17 at 09:00 Pantoprazole 40 mg 40 mg BID@06,18 IV Last administered on 01/17/17 05:03; Admin Dose 40 MG; Start 01/06/17 at 09:30 Propofol (Diprivan) 100 ml @ 3.537 mls/ hr Q12H IV Last administered on 10:57; Admin Dose 35.37 MLS/HR; Start 01/10/17 at 09:30 Metoclopramide HCl (Reglan) 10 mg Q6 IV Last administered on 01/17/17 05:03; Admin Dose 10 MG; Start 01/11/17 at 12:00 Valproate Sodium (Depakene Liquid Cup) 500 mg QHS NGT Last administered on 20:15; Admin Dose 500 MG; Start 01/11/17 at 21:00 Haloperidol (Haldol) 5 mg Q6 IV Last administered on 01/17/17 05:03; Admin Dose 5 MG; Start 01/12/17 at 12:00 Carbamazepine (Tegretol Susp) 400 mg QHS NGT Last administered on 01/16/17 20 :16; Admin Dose 400 MG; Start 01/12/17 at 21:00 Carbamazepine (Tegretol Susp) 200 mg QAM GTB Last administered on 01/17/17 08 :57; Admin Dose 200 MG; Start 01/16/17 at 09:00 Trazodone HCl (Desyrel) 150 mg HS PO Last administered on 01/16/17 20:14; Admin Dose 150 MG; Start 01/15/17 at 21:00 Quetiapine Fumarate 200 mg 200 mg TID NGT Last administered on 01/17/17 08:40 ; Admin Dose 200 MG; Start 01/15/17 at 13:00 Vancomycin HCl/ Sodium Chloride (Vancocin/NS) 250 ml @ 83.333 mls/ hr Q8H IVPB Last administered on 01/17/17 08:57; Admin Dose 83.333 MLS/HR; Start at 01:00 Miscellaneous Information (*Rx Drug Level Order Reminder*) VANCOMYCIN TROUGH AT 0000 ONCE ONCE XX ; Start 01/18/17 at 00:00; Stop 01/18/17 at 00:01 Assessment/Plan Chief Complaint/Hosp Course IMP: 1. Hypoxic respiratory failure/Vent Dependence 2. Acute Lung Injury/ARDS 3. History of drug overdose 4. 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 5. Likely ALEX 6. Anemia RECS: 1. T mechanical ventilation. Patient unlikely to be safely liberated from mechanical ventilation, I would recommend tracheostomy and PEG tube placement. 2. Vent--> change to VC+; rate 20; Vt 500; PEEP 7 3. d/c iVF replace potassium. Potassium protocol. 4. TF/Free H20 5. Lasix daily 6. Adjust psych medications. Trial of Librium. Problems: BRIANNA SAAVEDRA MD, [facility] Jan 17, 2017 11:06
[2017-01-17] MEDS: CHLORDIAZEPOXIDE 25 MG CAP PO SCH ×2 (12:17→19:59)
--- NOTE | 2017-01-17 12:21 | PN ---
Date/Time of Note Date/Time of Note DATE: 01/17/17 TIME: 12:18 Assessment/Plan VTE Prophylaxis VTE Prophylaxis Intervention: SCD's Lines/Catheters IV Catheter Type (from Nrsg): PICC Line Central line still needed: Yes Urinary Cath still in place: Yes Reason Cath still needed: other (indicate) (rg) Assessment/Plan Assessment/Plan 1. neuro: ongoing epsisodes of agitaiton, requiring maximum doses of sedation despite psych medications. Will request neurology evaluation for possible [employer] cuases of this 2. resp failure, ongoing intubated status, likely proceeding to trach 3. gi: likely to require peg with trach 4. psych: cont to ttirtate psych meds Subjective 24 Hr Interval Summary Free Text/Dictation intubated sedated, no response to voice nursing reports still ongoing episodes of agitation Exam/Review of Systems Vital Signs Vitals Vital Signs Date Time Temp Pulse Resp B/P Pulse Ox O2 Delivery O2 Flow Rate FiO2 01/17/17 12:00 98.4 74 19 110/72 94 Mechanical Ventilator 01/17/17 11:30 30 01/13/17 15:30 4.0 Intake and Output 01/16/17 01/16/17 01/17/17 15:00 23:00 07:00 Intake Total 1039.905 ml 723.313 ml 993.56 ml Output Total 600 ml 650 ml 595 ml Balance 439.905 ml 73.313 ml 398.56 ml Exam nad, sedated, ctab, rrr, soft nt, pedal pulses intact Results Result Diagram: 01/17/17 0400 01/17/17 0400 Results 24 hrs Laboratory Tests Test 01/16/17 16:44 01/17/17 04:00 Vancomycin Level Trough 29.1 *H White Blood Count 8.1 Red Blood Count 3.42 #L Hemoglobin 9.6 #L Hematocrit 30.3 #L Mean Corpuscular Volume 88.6 Mean Corpuscular Hemoglobin 28.1 L Mean Corpuscular Hemoglobin Concent 31.7 L Red Cell Distribution Width 13.9 Platelet Count 420 H Mean Platelet Volume 11.0 H Neutrophils % 63.4 Lymphocytes % 12.6 L Monocytes % 9.3 Eosinophils % 12.5 H Basophils % 1.0 Nucleated Red Blood Cells % 0.0 Neutrophils # 5.1 Lymphocytes # 1.0 Monocytes # 0.8 Eosinophils # 1.0 H Basophils # 0.1 Nucleated Red Blood Cells # 0.0 Sodium Level 144 Potassium Level 3.8 Chloride Level 101 Carbon Dioxide Level 30 Anion Gap 17 H Blood Urea Nitrogen 9 Creatinine 0.63 Glucose Level 82 Calcium Level 8.6 Medications Medications Current Medications Acetaminophen (Tylenol Tab) 650 mg Q4H PRN PO pain/fever Last administered on 01/11/17 07:46; Admin Dose 650 MG; Start 12/31/16 at 01:00 Hydralazine HCl (Apresoline) 25 mg Q6H PRN PO sbp>160; Start 12/31/16 at 01:00 Enalaprilat (Vasotec Iv) 1.25 mg Q6H PRN IV sbp>160; Start 12/31/16 at 01:00 Ondansetron HCl (Zofran Inj) 4 mg Q4H PRN IV nausea; Start 12/31/16 at 01:00 Hydralazine HCl 10 mg 10 mg Q4H PRN IV ELEVATED SYSTOLIC BP Last administered on 01/13/17 16:25; Admin Dose 10 MG; Start 12/31/16 at 05:30 Fentanyl 100 ml @ 2.5 mls/hr TITRATE IV Last administered on 01/17/17 05:36 ; Admin Dose 10 MLS/HR; Start 12/31/16 at 16:30 Midazolam HCl 50 ml @ 1 mls/hr TITRATE IV Last administered on 01/17/17 09:27 ; Admin Dose 10 MLS/HR; Start 12/31/16 at 16:30 Cefepime HCl 50 ml @ 100 mls/hr Q12 IVPB Last administered on 01/17/17 08:40 ; Admin Dose 100 MLS/HR; Start 12/31/16 at 20:00 Vecuronium [place]/Dextrose (Vecuronium [place]/D5W) 100 ml @ 6.03 mls/hr TITRATE IV Last administered on 01/03/17 04:07; Admin Dose 6.03 MLS/HR; Start 01/01/17 at 06:00 Labetalol HCl (Labetalol) 10 mg Q4H PRN IV SBP GREATER THAN 160 Last administered on 01/10/17 22:33; Admin Dose 10 MG; Start 01/01/17 at 12:00 IV Flush (NS 10 ml) 10 ml PRN PRN IV IV PROTOCOL; Start 01/02/17 at 17:00 Lorazepam (Ativan) 2 mg Q2H PRN IV PRN Agitation. Last administered on 04:52; Admin Dose 2 MG; Start 01/04/17 at 09:00 Pantoprazole 40 mg 40 mg BID@06,18 IV Last administered on 01/17/17 05:03; Admin Dose 40 MG; Start 01/06/17 at 09:30 Propofol (Diprivan) 100 ml @ 3.537 mls/ hr Q12H IV Last administered on 10:57; Admin Dose 35.37 MLS/HR; Start 01/10/17 at 09:30 Metoclopramide HCl (Reglan) 10 mg Q6 IV Last administered on 01/17/17 11:56; Admin Dose 10 MG; Start 01/11/17 at 12:00 Valproate Sodium (Depakene Liquid Cup) 500 mg QHS NGT Last administered on 20:15; Admin Dose 500 MG; Start 01/11/17 at 21:00 Haloperidol (Haldol) 5 mg Q6 IV Last administered on 01/17/17 12:11; Admin Dose 5 MG; Start 01/12/17 at 12:00 Carbamazepine (Tegretol Susp) 400 mg QHS NGT Last administered on 01/16/17 20 :16; Admin Dose 400 MG; Start 01/12/17 at 21:00 Carbamazepine (Tegretol Susp) 200 mg QAM GTB Last administered on 01/17/17 08 :57; Admin Dose 200 MG; Start 01/16/17 at 09:00 Trazodone HCl (Desyrel) 150 mg HS PO Last administered on 01/16/17 20:14; Admin Dose 150 MG; Start 01/15/17 at 21:00 Quetiapine Fumarate 200 mg 200 mg TID NGT Last administered on 01/17/17 12:11 ; Admin Dose 200 MG; Start 01/15/17 at 13:00 Vancomycin HCl/ Sodium Chloride (Vancocin/NS) 250 ml @ 83.333 mls/ hr Q8H IVPB Last administered on 01/17/17 08:57; Admin Dose 83.333 MLS/HR; Start at 01:00 Miscellaneous Information (*Rx Drug Level Order Reminder*) VANCOMYCIN TROUGH AT 0000 ONCE ONCE XX ; Start 01/18/17 at 00:00; Stop 01/18/17 at 00:01 Chlordiazepoxide (Librium) 50 mg TID PO Last administered on 01/17/17t 12:17; Admin Dose 50 MG; Start 01/17/17 at 13:00 JEAN MARIE BRAGG MD Jan 17, 2017 12:21
--- NOTE | 2017-01-17 14:53 | CONS ---
Date/Time of Note Date/Time of Note DATE: 01/17/17 TIME: 14:45 Assessment/Plan Assessment/Plan Chief Complaint/Hosp Course Altered mental status progressed to respiratory failure with multidrug use Problems: Additional Assessment/Plan Patient is a 46-year-old male with history of bipolar disorder was admitted on December 31/2017 with altered mental status. His evaluation shows him to be having multidrug overdose and progressed to respiratory failure, bilateral pneumonia, hypercapnia and hypoxemia. He has been intubated and mechanically ventilated and has been sedated for the last 2 weeks. On decreasing sedation he becomes agitated. A CT scan of the brain was unremarkable on admission. An EEG showed severe encephalopathy. Examination was quite limited. Corneals and gag reflexes are present. He withdraws appropriately to noxious stimulus. He appears severely encephalopathic. Plan 1 MRI of the brain 2 repeat EEG 3 taper away sedation if possible 4 will follow Consultation Date/Type/Reason Admit Date/Time Dec 31, 2016 at 00:30 Date of Consultation: Jan 17, 2017 Type of Consultation: Neurology Reason for Consultation Altered mental status and multi drug overdose Referring Provider: JEAN MARIE BRAGG MD Hx of Present Illness Patient is a 46-year-old male with history of bipolar disorder was admitted on December 31/2017 with altered mental status. His evaluation shows him to be having multidrug overdose and progressed to respiratory failure, bilateral pneumonia, hypercapnia and hypoxemia. He has been intubated and mechanically ventilated and has been sedated for the last 2 weeks. On decreasing sedation he becomes agitated. A CT scan of the brain was unremarkable on admission. An EEG showed severe encephalopathy. Neurology evaluation is called to evaluate his neurological status. Constitutional: disoriented Psychological: confusion Social History Smoking Status: Unknown if ever smoked Exam/Review of Systems Vital Signs Vitals Vital Signs Date Time Temp Pulse Resp B/P Pulse Ox O2 Delivery O2 Flow Rate FiO2 01/17/17 12:00 98.4 74 19 110/72 94 Mechanical Ventilator 01/17/17 11:30 30 01/13/17 15:30 4.0 Intake and Output 01/16/17 01/16/17 01/17/17 15:00 23:00 07:00 Intake Total 1039.905 ml 723.313 ml 993.56 ml Output Total 600 ml 650 ml 595 ml Balance 439.905 ml 73.313 ml 398.56 ml Exam Constitutional: other Head: atraumatic, normocephalic Neck: non-tender, supple Cardiovascular: regular rate and rhythm Extremities: normal pulses Neurological: other (Comatose, Intubated, sedated, Corneals present, gag present, no withdrwl to noxious stimuli) Results Result Diagram: 01/17/17 0400 01/17/17 0400 Results 24 hrs Laboratory Tests Test 01/16/17 16:44 01/17/17 04:00 Vancomycin Level Trough 29.1 *H White Blood Count 8.1 Red Blood Count 3.42 #L Hemoglobin 9.6 #L Hematocrit 30.3 #L Mean Corpuscular Volume 88.6 Mean Corpuscular Hemoglobin 28.1 L Mean Corpuscular Hemoglobin Concent 31.7 L Red Cell Distribution Width 13.9 Platelet Count 420 H Mean Platelet Volume 11.0 H Neutrophils % 63.4 Lymphocytes % 12.6 L Monocytes % 9.3 Eosinophils % 12.5 H Basophils % 1.0 Nucleated Red Blood Cells % 0.0 Neutrophils # 5.1 Lymphocytes # 1.0 Monocytes # 0.8 Eosinophils # 1.0 H Basophils # 0.1 Nucleated Red Blood Cells # 0.0 Sodium Level 144 Potassium Level 3.8 Chloride Level 101 Carbon Dioxide Level 30 Anion Gap 17 H Blood Urea Nitrogen 9 Creatinine 0.63 Glucose Level 82 Calcium Level 8.6 Medications Medications Current Medications Acetaminophen (Tylenol Tab) 650 mg Q4H PRN PO pain/fever Last administered on 01/11/17 07:46; Admin Dose 650 MG; Start 12/31/16 at 01:00 Hydralazine HCl (Apresoline) 25 mg Q6H PRN PO sbp>160; Start 12/31/16 at 01:00 Enalaprilat (Vasotec Iv) 1.25 mg Q6H PRN IV sbp>160; Start 12/31/16 at 01:00 Ondansetron HCl (Zofran Inj) 4 mg Q4H PRN IV nausea; Start 12/31/16 at 01:00 Hydralazine HCl 10 mg 10 mg Q4H PRN IV ELEVATED SYSTOLIC BP Last administered on 01/13/17 16:25; Admin Dose 10 MG; Start 12/31/16 at 05:30 Fentanyl 100 ml @ 2.5 mls/hr TITRATE IV Last administered on 01/17/17 05:36 ; Admin Dose 10 MLS/HR; Start 12/31/16 at 16:30 Midazolam HCl 50 ml @ 1 mls/hr TITRATE IV Last administered on 01/17/17 13:37 ; Admin Dose 10 MLS/HR; Start 12/31/16 at 16:30 Vecuronium [place]/Dextrose (Vecuronium [place]/D5W) 100 ml @ 6.03 mls/hr TITRATE IV Last administered on 01/03/17 04:07; Admin Dose 6.03 MLS/HR; Start 01/01/17 at 06:00 Labetalol HCl (Labetalol) 10 mg Q4H PRN IV SBP GREATER THAN 160 Last administered on 01/10/17 22:33; Admin Dose 10 MG; Start 01/01/17 at 12:00 IV Flush (NS 10 ml) 10 ml PRN PRN IV IV PROTOCOL; Start 01/02/17 at 17:00 Lorazepam (Ativan) 2 mg Q2H PRN IV PRN Agitation. Last administered on 04:52; Admin Dose 2 MG; Start 01/04/17 at 09:00 Pantoprazole 40 mg 40 mg BID@06,18 IV Last administered on 01/17/17 05:03; Admin Dose 40 MG; Start 01/06/17 at 09:30 Propofol (Diprivan) 100 ml @ 3.537 mls/ hr Q12H IV Last administered on 13:32; Admin Dose 35.37 MLS/HR; Start 01/10/17 at 09:30 Metoclopramide HCl (Reglan) 10 mg Q6 IV Last administered on 01/17/17 11:56; Admin Dose 10 MG; Start 01/11/17 at 12:00 Valproate Sodium (Depakene Liquid Cup) 500 mg QHS NGT Last administered on 20:15; Admin Dose 500 MG; Start 01/11/17 at 21:00 Haloperidol (Haldol) 5 mg Q6 IV Last administered on 01/17/17 12:11; Admin Dose 5 MG; Start 01/12/17 at 12:00 Carbamazepine (Tegretol Susp) 400 mg QHS NGT Last administered on 01/16/17 20 :16; Admin Dose 400 MG; Start 01/12/17 at 21:00 Carbamazepine (Tegretol Susp) 200 mg QAM GTB Last administered on 01/17/17 08 :57; Admin Dose 200 MG; Start 01/16/17 at 09:00 Trazodone HCl (Desyrel) 150 mg HS PO Last administered on 01/16/17 20:14; Admin Dose 150 MG; Start 01/15/17 at 21:00 Quetiapine Fumarate (Seroquel) 200 mg TID NGT Last administered on 01/17/17 12:11; Admin Dose 200 MG; Start 01/15/17 at 13:00 Chlordiazepoxide (Librium) 50 mg TID PO Last administered on 01/17/17 12:17; Admin Dose 50 MG; Start 01/17/17 at 13:00 SALINA EDEN MD Jan 17, 2017 14:53
--- NOTE | 2017-01-17 15:35 | PN ---
Date/Time of Note Date/Time of Note DATE: 01/17/17 TIME: 15:34 Assessment/Plan VTE Prophylaxis VTE Prophylaxis Intervention: SCD's Lines/Catheters IV Catheter Type (from Nrs): PICC Line (Medication) Central line still needed: Yes (Medication) Urinary Cath still in place: Yes Reason Cath still needed: other (indicate) (Monitor output) Assessment/Plan Chief Complaint/Hosp Course Assessment: Anemia-improved Severe encephalopathy Likely secondary to drug use Acute Respiratory failure Intubated and sedated Extubation with Bipap attempted and failed 01/13 after 2 hours pt reintubated Plan: Continue PPI therapy May need PEG in near future HGB stable No significant changes overnight Continue all supportive care Patient seen in collaboration with Dr. Miranda Subjective: Course reviewed with nursing staff Patient interviewed and examined All labs, imaging and other results reviewed Patient remains intubated and sedated Patient may need poss PEG in near future Will continue to monitor need for endoscopies Exam Constitutional: well developed, sedated and intubated Psych: unable to assess Head: atraumatic, normocephalic Eyes: EOMI, nl conjunctiva, nl lids ENMT: nl external ears & nose, nl lips & teeth, nl nasal mucosa & septum Neck: non-tender, supple Respiratory: Bilateral Rales Cardiovascular: nl pulses, regular rate and rhythm Gastrointestinal: hypoactive bowel sounds, soft Problems: Exam/Review of Systems Vital Signs Vitals Vital Signs Date Time Temp Pulse Resp B/P Pulse Ox O2 Delivery O2 Flow Rate FiO2 01/17/17 15:00 79 20 103/64 93 Mechanical Ventilator 01/17/17 12:00 98.4 01/17/17 11:30 30 01/13/17 15:30 4.0 Intake and Output 01/16/17 01/16/17 01/17/17 15:00 23:00 07:00 Intake Total 1039.905 ml 723.313 ml 993.56 ml Output Total 600 ml 650 ml 595 ml Balance 439.905 ml 73.313 ml 398.56 ml Results Result Diagram: 01/17/17 0400 01/17/17 0400 Results 24 hrs Laboratory Tests Test 01/16/17 16:44 01/17/17 04:00 Vancomycin Level Trough 29.1 *H White Blood Count 8.1 Red Blood Count 3.42 #L Hemoglobin 9.6 #L Hematocrit 30.3 #L Mean Corpuscular Volume 88.6 Mean Corpuscular Hemoglobin 28.1 L Mean Corpuscular Hemoglobin Concent 31.7 L Red Cell Distribution Width 13.9 Platelet Count 420 H Mean Platelet Volume 11.0 H Neutrophils % 63.4 Lymphocytes % 12.6 L Monocytes % 9.3 Eosinophils % 12.5 H Basophils % 1.0 Nucleated Red Blood Cells % 0.0 Neutrophils # 5.1 Lymphocytes # 1.0 Monocytes # 0.8 Eosinophils # 1.0 H Basophils # 0.1 Nucleated Red Blood Cells # 0.0 Sodium Level 144 Potassium Level 3.8 Chloride Level 101 Carbon Dioxide Level 30 Anion Gap 17 H Blood Urea Nitrogen 9 Creatinine 0.63 Glucose Level 82 Calcium Level 8.6 Medications Medications Current Medications Acetaminophen (Tylenol Tab) 650 mg Q4H PRN PO pain/fever Last administered on 01/11/17 07:46; Admin Dose 650 MG; Start 12/31/16 at 01:00 Hydralazine HCl (Apresoline) 25 mg Q6H PRN PO sbp>160; Start 12/31/16 at 01:00 Enalaprilat (Vasotec Iv) 1.25 mg Q6H PRN IV sbp>160; Start 12/31/16 at 01:00 Ondansetron HCl (Zofran Inj) 4 mg Q4H PRN IV nausea; Start 12/31/16 at 01:00 Hydralazine HCl 10 mg 10 mg Q4H PRN IV ELEVATED SYSTOLIC BP Last administered on 01/13/17 16:25; Admin Dose 10 MG; Start 12/31/16 at 05:30 Fentanyl 100 ml @ 2.5 mls/hr TITRATE IV Last administered on 01/17/17 05:36 ; Admin Dose 10 MLS/HR; Start 12/31/16 at 16:30 Midazolam HCl 50 ml @ 1 mls/hr TITRATE IV Last administered on 01/17/17 13:37 ; Admin Dose 10 MLS/HR; Start 12/31/16 at 16:30 Vecuronium [place]/Dextrose (Vecuronium [place]/D5W) 100 ml @ 6.03 mls/hr TITRATE IV Last administered on 01/03/17 04:07; Admin Dose 6.03 MLS/HR; Start 01/01/17 at 06:00 Labetalol HCl (Labetalol) 10 mg Q4H PRN IV SBP GREATER THAN 160 Last administered on 01/10/17 22:33; Admin Dose 10 MG; Start 01/01/17 at 12:00 IV Flush (NS 10 ml) 10 ml PRN PRN IV IV PROTOCOL; Start 01/02/17 at 17:00 Lorazepam (Ativan) 2 mg Q2H PRN IV PRN Agitation. Last administered on 04:52; Admin Dose 2 MG; Start 01/04/17 at 09:00 Pantoprazole 40 mg 40 mg BID@06,18 IV Last administered on 01/17/17 05:03; Admin Dose 40 MG; Start 01/06/17 at 09:30 Propofol (Diprivan) 100 ml @ 3.537 mls/ hr Q12H IV Last administered on 13:32; Admin Dose 35.37 MLS/HR; Start 01/10/17 at 09:30 Metoclopramide HCl (Reglan) 10 mg Q6 IV Last administered on 01/17/17 11:56; Admin Dose 10 MG; Start 01/11/17 at 12:00 Valproate Sodium (Depakene Liquid Cup) 500 mg QHS NGT Last administered on 20:15; Admin Dose 500 MG; Start 01/11/17 at 21:00 Haloperidol (Haldol) 5 mg Q6 IV Last administered on 01/17/17 12:11; Admin Dose 5 MG; Start 01/12/17 at 12:00 Carbamazepine (Tegretol Susp) 400 mg QHS NGT Last administered on 01/16/17 20 :16; Admin Dose 400 MG; Start 01/12/17 at 21:00 Carbamazepine (Tegretol Susp) 200 mg QAM GTB Last administered on 01/17/17 08 :57; Admin Dose 200 MG; Start 01/16/17 at 09:00 Trazodone HCl (Desyrel) 150 mg HS PO Last administered on 01/16/17 20:14; Admin Dose 150 MG; Start 01/15/17 at 21:00 Quetiapine Fumarate (Seroquel) 200 mg TID NGT Last administered on 01/17/17 12:11; Admin Dose 200 MG; Start 01/15/17 at 13:00 Chlordiazepoxide (Librium) 50 mg TID PO Last administered on 01/17/17t 12:17; Admin Dose 50 MG; Start 01/17/17 at 13:00 JULY MCKENNA Jan 17, 2017 15:35
[2017-01-17] MEDS: VALPROIC ACID LIQUID CUP 250 MG/5 ML CUP NGT SCH (20:26)
[2017-01-17] MEDS: traZODone 100 MG TAB PO SCH (20:27)
[2017-01-17] MEDS: carBAMAZEpine SUSP 100 MG/5 ML NGT SCH (20:29)
[2017-01-18] VITALS (54 sets, daily range): BP systolic 89–162; BP diastolic 52–112; PULSE 79–117; RESP 0–40
[2017-01-18] MEDS: MIDAZOLAM (DRIP) 50 mg/50 mL 50 ML IV SCH ×5 (00:49→22:18)
[2017-01-18] MEDS: PROPOFOL 100 ML IV SCH ×6 (01:03→19:54)
[2017-01-18] MEDS: IPRATROPIUM (HFA) 12.9 GM INHALER INH SCH ×4 (01:08→20:06)
[2017-01-18] MEDS: ALBUTEROL 18 GM INHALER INH SCH ×4 (01:08→20:06)
[2017-01-18] MEDS: FENTAnyl 1,000 MCG in DEXTROSE 5% 80 ML IV SCH ×3 (02:00→23:08)
[2017-01-18] MEDS: LORAZEPAM 2 MG INJ IV PRN ×2 (02:25→08:36)
[2017-01-18] MEDS: METOCLOPRAMIDE 10 MG INJ IV SCH ×4 (05:37→23:25)
[2017-01-18] MEDS: HALOPERIDOL 5 MG INJ IV SCH ×4 (05:37→23:26)
[2017-01-18] MEDS: PANTOPRAZOLE 40 MG INJ IV SCH ×2 (05:37→17:16)
[2017-01-18 05:39] LABS: BASOPHIL # 0.1 10^3/ul (0.0-0.1); BASOPHILS % 0.9 % (0.0-2.0); EOSINOPHILS # 0.7 10^3/ul (0.0-0.5); EOSINOPHILS % 8.4 % (0.0-7.0); HEMATOCRIT 30.3 % (42.0-52.0); HEMOGLOBIN 9.9 g/dl (14.0-18.0); LYMPHOCYTES % 11.5 % (15.0-51.0); MEAN CORPUSCULAR HEMOGLOBIN 28.7 pg (29.0-33.0); MEAN CORPUSCULAR HGB CONC 32.7 g/dl (32.0-37.0); MEAN CORPUSCULAR VOLUME 87.8 fl (82.0-101.0); MONOCYTE # 0.8 10^3/ul (0.3-0.9); MONOCYTES % 9.8 % (0.0-11.0); NEUTROPHIL # 5.6 10^3/ul (1.6-7.5); NEUTROPHILS % 68.1 % (39.0-77.0); PLATELET COUNT 402 10^3/UL (140-415); RED BLOOD COUNT 3.45 10^6/ul (4.70-6.10); RED CELL DISTRIBUTION WIDTH 13.7 % (11.5-14.5); WHITE BLOOD COUNT 8.2 10^3/ul (4.8-10.8)
[2017-01-18 05:56] LABS: CALCIUM 8.6 mg/dl (8.4-10.2); CREATININE 0.6 mg/dl (0.61-1.24); POTASSIUM 3.4 mmol/L (3.5-5.1)
[2017-01-18] MEDS: QUETIAPINE 100 MG TAB NGT SCH ×4 (08:31→21:01)
[2017-01-18] MEDS: CHLORDIAZEPOXIDE 25 MG CAP PO SCH ×3 (08:31→21:01)
[2017-01-18] MEDS: carBAMAZEpine SUSP 100 MG/5 ML GTB SCH (09:55)
[2017-01-18] MEDS ORDERED: LORAZEPAM 2 MG INJ IV ONE (10:00)
[2017-01-18] MEDS ORDERED: POTASSIUM CHLORIDE 20 MEQ POWDER FOR ORAL SOLN GTB ONE (10:30)
--- NOTE | 2017-01-18 10:54 | PN ---
Date/Time of Note Date/Time of Note DATE: 01/18/17 TIME: 10:38 Assessment/Plan VTE Prophylaxis VTE Prophylaxis Intervention: SCD's Lines/Catheters IV Catheter Type (from Nrsg): PICC Line Central line still needed: Yes (For IV access) Urinary Cath still in place: Yes Reason Cath still needed: other (indicate) (Intubated, sedated) Assessment/Plan Assessment/Plan 46 yo male with: 1. Severe encephalopathy 2ry to drug abuse likely Bath salts and/or synthetic marijuana. Patient still with episodes of agitation and requiring multiple sedating agents. Reconciliation and titration of her psychiatric medication hopefully we can start de-escalating on the sedation. We will attempt again to titrate sedating agents down, propofol first followed by fentanyl and benzodiazepines last. Likely encephalopathy secondary to drug use, cannabinoid synthetics and possibly bath salts. He also does have a history of bipolar disorder but 1/2 sister and girlfriend have confirmed that patient is noncompliant with his outpatient antipsychotics and medications CT head 2 since admission are both wnl, EEG showing encephalopathy as expected while patient was on for sedating agent and paralytics. Appreciate neurology recommendations, unable to perform MRI currently which has been the problem so far due to severe agitation. EEG already done a couple of weeks ago but can be repeated. 2. Acute respiratory Failure 2ry to severe Encephalopathy from Drug overuse, intubated, sedated and paralysed. Patient was briefly extubated last week for 2 -1/2 hours but had to be reintubated due to inability to protect his airway, of note he was still on sedating agents. Also likely aspirated and with aspiration PNA vs pneumonitis. Now with concerns for ARDS or pulmonary status post antibiotic course and diuresis. On Lasix given the chest x-ray findings of pulmonary edema versus ARDS. WBC within normal now and chest x-ray has been better. Still on FiO2 of 30% and PEEP of 7 Still on fentanyl, propofol, and Versed for sedation, also getting as needed Ativan but hopefully will be able to titrate at least propofol to off. Patient being restarted on Seroquel and Tegretol dosing adjusted to outpatient dosing. Trazodone resumed at night. 3. Bipolar disorder: Likely noncompliant with psychiatric medications. Medication resumed and adjusted to outpatient dosing based on the note from psychiatry 5 days prior to admission that were able to obtain last Wednesday, patient Seroquel can even be titrated higher, according to the notes he was on Seroquel XR, increased to 1000 mg nightly per the latest note. Will increase Seroquel to 200 mg 4 times daily today. Again per the girlfriend it is very likely that the patient was not fully compliant. 4. Right foot Lisfranc fracture: Pain control and ? splint 5. Anemia: Hemoglobin stable at 9.9, status post 1 unit packed red blood cells on 01/15. SCDs to lower extremities. On Reglan up to 10 mg q6 and proton pump inhibitors. Tolerating tube feedings so far. Patient's 1/2 sister to be called regarding consenting for blood transfusions and procedures. 6. Low-grade temperature, diaphoresis, blood cultures from 01/08 no growth to date. Urine culture from 01/08 no growth to date. Afebrile for a few days and white blood cell count down to normal. OFF abx as of this weekend Cardiac enzymes x1 wnl last week 7. Hypokalemia: Continue to replace potassium as needed, check labs daily especially while patient is on Lasix. Magnesium level wnl. On free water for mild hypernatremia and prerenal azotemia but also being diuresed with increasing dose of Lasix per pulmonary. Prophylaxis: SCDs for DVT prophylaxis, Protonix for GI prophylaxis Disposition: Still in ICU, re-intubated, sedated, trying to weaning off sedation. Family meeting 01/14 did confirm that patient is noncompliant with medication, unfortunately he does have significant behavioral issues including violent behavior. He is a bipolar that seems to be mostly manic most of the time and noncompliant with medications at all. Drug use is an issue. We will try to do our best to have the patient safely extubated soon if not possible he may need tracheostomy and PEG which the 1/2 sister understand and has made does understand that either way she will not be involved in the primary caregiving of patient and he will need to be placed at the time of discharge no matter what his condition is as long as he cannot take care of himself. Subjective 24 Hr Interval Summary Free Text/Dictation Patient still with issues with agitation, titrating Seroquel up today to total of 800 mg daily. Working on titration of sedating agents down. Exam/Review of Systems Vital Signs Vitals Vital Signs Date Time Temp Pulse Resp B/P Pulse Ox O2 Delivery O2 Flow Rate FiO2 01/18/17 08:58 96 25 90 30 01/18/17 07:30 98.3 110/72 Mechanical Ventilator Intake and Output 01/17/17 01/17/17 01/18/17 15:00 23:00 07:00 Intake Total 842.96 ml 828.11 ml 939.85 ml Output Total 1175 ml 1310 ml 1180 ml Balance -332.04 ml -481.89 ml -240.15 ml Exam Constitutional: other (Intubated, on sedation however agitated moving through the bed) Psych: other (Severe agitation) Respiratory: diminished breath sounds (At bases bilaterally), other (On mechanical ventilation) Cardiovascular: nl pulses, regular rate and rhythm Gastrointestinal: non-tender, soft Musculoskeletal: nl extremities to inspection Extremities: normal pulses, other (No edema, clubbing or cyanosis) Neurological: other (Not following command, still agitated despite multiple sedating agents.) Results Result Diagram: 01/18/17 0430 01/18/17 0430 Results 24 hrs Laboratory Tests Test 01/18/17 04:30 White Blood Count 8.2 Red Blood Count 3.45 L Hemoglobin 9.9 L Hematocrit 30.3 L Mean Corpuscular Volume 87.8 Mean Corpuscular Hemoglobin 28.7 L Mean Corpuscular Hemoglobin Concent 32.7 Red Cell Distribution Width 13.7 Platelet Count 402 Mean Platelet Volume 11.0 H Neutrophils % 68.1 Lymphocytes % 11.5 L Monocytes % 9.8 Eosinophils % 8.4 H Basophils % 0.9 Nucleated Red Blood Cells % 0.0 Neutrophils # 5.6 Lymphocytes # 1.0 Monocytes # 0.8 Eosinophils # 0.7 H Basophils # 0.1 Nucleated Red Blood Cells # 0.0 Sodium Level 144 Potassium Level 3.4 L Chloride Level 102 Carbon Dioxide Level 28 Anion Gap 17 H Blood Urea Nitrogen 8 Creatinine 0.60 L Glucose Level 93 Calcium Level 8.6 Medications Medications Current Medications Acetaminophen (Tylenol Tab) 650 mg Q4H PRN PO pain/fever Last administered on 01/11/17t 07:46; Admin Dose 650 MG; Start 12/31/16 at 01:00 Hydralazine HCl (Apresoline) 25 mg Q6H PRN PO sbp>160; Start 12/31/16 at 01:00 Enalaprilat (Vasotec Iv) 1.25 mg Q6H PRN IV sbp>160; Start 12/31/16 at 01:00 Ondansetron HCl (Zofran Inj) 4 mg Q4H PRN IV nausea; Start 12/31/16 at 01:00 Hydralazine HCl 10 mg 10 mg Q4H PRN IV ELEVATED SYSTOLIC BP Last administered on 01/13/17 16:25; Admin Dose 10 MG; Start 12/31/16 at 05:30 Midazolam HCl 50 ml @ 1 mls/hr TITRATE IV Last administered on 01/18/17 05:57 ; Admin Dose 10 MLS/HR; Start 12/31/16 at 16:30 Vecuronium [place]/Dextrose (Vecuronium [place]/D5W) 100 ml @ 6.03 mls/hr TITRATE IV Last administered on 01/03/17 04:07; Admin Dose 6.03 MLS/HR; Start 01/01/17 at 06:00 Labetalol HCl (Labetalol) 10 mg Q4H PRN IV SBP GREATER THAN 160 Last administered on 01/10/17 22:33; Admin Dose 10 MG; Start 01/01/17 at 12:00 IV Flush (NS 10 ml) 10 ml PRN PRN IV IV PROTOCOL; Start 01/02/17 at 17:00 Lorazepam (Ativan) 2 mg Q2H PRN IV PRN Agitation. Last administered on 08:36; Admin Dose 2 MG; Start 01/04/17 at 09:00 Pantoprazole 40 mg 40 mg BID@06,18 IV Last administered on 01/18/17 05:37; Admin Dose 40 MG; Start 01/06/17 at 09:30 Propofol (Diprivan) 100 ml @ 3.537 mls/ hr Q12H IV Last administered on 09:49; Admin Dose 35.37 MLS/HR; Start 01/10/17 at 09:30 Metoclopramide HCl (Reglan) 10 mg Q6 IV Last administered on 01/18/17 05:37; Admin Dose 10 MG; Start 01/11/17 at 12:00 Valproate Sodium (Depakene Liquid Cup) 500 mg QHS NGT Last administered on 20:26; Admin Dose 500 MG; Start 01/11/17 at 21:00 Haloperidol (Haldol) 5 mg Q6 IV Last administered on 01/18/17 05:37; Admin Dose 5 MG; Start 01/12/17 at 12:00 Carbamazepine (Tegretol Susp) 400 mg QHS NGT Last administered on 01/17/17 20 :29; Admin Dose 400 MG; Start 01/12/17 at 21:00 Carbamazepine (Tegretol Susp) 200 mg QAM GTB Last administered on 01/18/17 09 :55; Admin Dose 200 MG; Start 01/16/17 at 09:00 Trazodone HCl (Desyrel) 150 mg HS PO Last administered on 01/17/17 20:27; Admin Dose 150 MG; Start 01/15/17 at 21:00 Chlordiazepoxide 50 mg 50 mg TID PO Last administered on 01/18/17 08:31; Admin Dose 50 MG; Start 01/17/17 at 13:00 Fentanyl/Dextrose (D5W) 100 ml @ 2.5 mls/hr TITRATE IV Last administered on 02:00; Admin Dose 10 MLS/HR; Start 01/17/17 at 20:00 Quetiapine Fumarate (Seroquel) 200 mg QID NGT ; Start 01/18/17 at 13:00; Status TRENT DODGE Jan 18, 2017 10:49
--- NOTE | 2017-01-18 11:40 | CONS ---
Date/Time of Note Date/Time of Note DATE: 01/18/17 TIME: 11:38 Consult Date/Type/Reason Admit Date/Time Dec 31, 2016 at 00:30 Initial Consult Date 12/31/16 Type of Consultation: Pulmonary Ordering Provider: JEAN MARIE BRAGG MD Subjective Patient remains sedated on mechanical ventilation. Severe agitation off propofol. Objective Vital Signs Date Time Temp Pulse Resp B/P Pulse Ox O2 Delivery O2 Flow Rate FiO2 01/18/17 11:06 82 22 97 30 01/18/17 07:30 98.3 110/72 Mechanical Ventilator Intake and Output 01/17/17 01/17/17 01/18/17 15:00 23:00 07:00 Intake Total 842.96 ml 828.11 ml 939.85 ml Output Total 1175 ml 1310 ml 1180 ml Balance -332.04 ml -481.89 ml -240.15 ml Exam GENERAL: Well-nourished well-developed gentleman orally intubated on mechanical ventilation VITAL SIGNS: see below. HEENT: Pupils equal, round, and reactive to light. CARDIAC: S1, S2, 1/6 systolic ejection murmur CHEST: Diminished air entry bilaterally. ABDOMEN: Mildly distended. Bowel sounds present no guarding or rebound EXTREMITIES: No cyanosis, clubbing edema +1 NEUROLOGIC: Generalized weakness Results/Medications Result Diagram: 01/18/17 0430 01/18/17 0430 Results 24 hrs Laboratory Tests Test 01/18/17 04:30 White Blood Count 8.2 Red Blood Count 3.45 L Hemoglobin 9.9 L Hematocrit 30.3 L Mean Corpuscular Volume 87.8 Mean Corpuscular Hemoglobin 28.7 L Mean Corpuscular Hemoglobin Concent 32.7 Red Cell Distribution Width 13.7 Platelet Count 402 Mean Platelet Volume 11.0 H Neutrophils % 68.1 Lymphocytes % 11.5 L Monocytes % 9.8 Eosinophils % 8.4 H Basophils % 0.9 Nucleated Red Blood Cells % 0.0 Neutrophils # 5.6 Lymphocytes # 1.0 Monocytes # 0.8 Eosinophils # 0.7 H Basophils # 0.1 Nucleated Red Blood Cells # 0.0 Sodium Level 144 Potassium Level 3.4 L Chloride Level 102 Carbon Dioxide Level 28 Anion Gap 17 H Blood Urea Nitrogen 8 Creatinine 0.60 L Glucose Level 93 Calcium Level 8.6 Magnesium Level 1.9 Medications Current Medications Acetaminophen (Tylenol Tab) 650 mg Q4H PRN PO pain/fever Last administered on 01/11/17 07:46; Admin Dose 650 MG; Start 12/31/16 at 01:00 Hydralazine HCl (Apresoline) 25 mg Q6H PRN PO sbp>160; Start 12/31/16 at 01:00 Enalaprilat (Vasotec Iv) 1.25 mg Q6H PRN IV sbp>160; Start 12/31/16 at 01:00 Ondansetron HCl (Zofran Inj) 4 mg Q4H PRN IV nausea; Start 12/31/16 at 01:00 Hydralazine HCl 10 mg 10 mg Q4H PRN IV ELEVATED SYSTOLIC BP Last administered on 01/13/17 16:25; Admin Dose 10 MG; Start 12/31/16 at 05:30 Midazolam HCl 50 ml @ 1 mls/hr TITRATE IV Last administered on 01/18/17 05:57 ; Admin Dose 10 MLS/HR; Start 12/31/16 at 16:30 Vecuronium [place]/Dextrose (Vecuronium [place]/D5W) 100 ml @ 6.03 mls/hr TITRATE IV Last administered on 01/03/17 04:07; Admin Dose 6.03 MLS/HR; Start 01/01/17 at 06:00 Labetalol HCl (Labetalol) 10 mg Q4H PRN IV SBP GREATER THAN 160 Last administered on 01/10/17 22:33; Admin Dose 10 MG; Start 01/01/17 at 12:00 IV Flush (NS 10 ml) 10 ml PRN PRN IV IV PROTOCOL; Start 01/02/17 at 17:00 Lorazepam (Ativan) 2 mg Q2H PRN IV PRN Agitation. Last administered on 08:36; Admin Dose 2 MG; Start 01/04/17 at 09:00 Pantoprazole 40 mg 40 mg BID@06,18 IV Last administered on 01/18/17 05:37; Admin Dose 40 MG; Start 01/06/17 at 09:30 Propofol (Diprivan) 100 ml @ 3.537 mls/ hr Q12H IV Last administered on 09:49; Admin Dose 35.37 MLS/HR; Start 01/10/17 at 09:30 Metoclopramide HCl (Reglan) 10 mg Q6 IV Last administered on 01/18/17 05:37; Admin Dose 10 MG; Start 01/11/17 at 12:00 Valproate Sodium (Depakene Liquid Cup) 500 mg QHS NGT Last administered on 20:26; Admin Dose 500 MG; Start 01/11/17 at 21:00 Haloperidol (Haldol) 5 mg Q6 IV Last administered on 01/18/17 05:37; Admin Dose 5 MG; Start 01/12/17 at 12:00 Carbamazepine (Tegretol Susp) 400 mg QHS NGT Last administered on 01/17/17 20 :29; Admin Dose 400 MG; Start 01/12/17 at 21:00 Carbamazepine (Tegretol Susp) 200 mg QAM GTB Last administered on 01/18/17 09 :55; Admin Dose 200 MG; Start 01/16/17 at 09:00 Trazodone HCl (Desyrel) 150 mg HS PO Last administered on 01/17/17 20:27; Admin Dose 150 MG; Start 01/15/17 at 21:00 Chlordiazepoxide 50 mg 50 mg TID PO Last administered on 01/18/17 08:31; Admin Dose 50 MG; Start 01/17/17 at 13:00 Fentanyl/Dextrose (D5W) 100 ml @ 2.5 mls/hr TITRATE IV Last administered on 02:00; Admin Dose 10 MLS/HR; Start 01/17/17 at 20:00 Quetiapine Fumarate (Seroquel) 200 mg QID NGT ; Start 01/18/17 at 13:00 Assessment/Plan Chief Complaint/Hosp Course IMP: 1. Hypoxic respiratory failure/Vent Dependence 2. Acute Lung Injury/ARDS 3. History of drug overdose 4. 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 5. Likely ALEX 6. Anemia 7. Persistent need for propofol concerning for possible pancreatitis elevated triglyceride levels. Differential does include propofol infusion syndrome. RECS: 1. Continue mechanical ventilation. Patient unlikely to be safely liberated from mechanical ventilation, I would recommend tracheostomy and PEG tube placement. 2. Vent--> change to VC+; rate 20; Vt 500; PEEP 7 3. d/c iVF replace potassium. Potassium protocol. 4. TF/Free H20 5. Lasix daily 6. Adjust psych medications. Trial of Librium. 7. Check triglyceride levels and lipase and amylase. Problems: BRIANNA SAAVEDRA MD, [facility] Jan 18, 2017 11:40
[2017-01-18 12:12] LABS: CHOL/HDL RATIO 15.6 RATIO
[2017-01-18] MEDS ORDERED: THIAMINE 200 MG INJ IV SCH (12:30)
--- NOTE | 2017-01-18 12:58 | CONS ---
Date/Time of Note Date/Time of Note DATE: 01/18/17 TIME: 12:55 Consult Date/Type/Reason Admit Date/Time Dec 31, 2016 at 00:30 Initial Consult Date 01/17/17 Type of Consultation: Neurology Reason for Consultation encephalopathy Ordering Provider: JEAN MARIE BRAGG MD Subjective persistent agitation encephalopathy requiring multiple sedatives Objective Vital Signs Date Time Temp Pulse Resp B/P Pulse Ox O2 Delivery O2 Flow Rate FiO2 01/18/17 12:00 98.4 84 22 92/59 95 Mechanical Ventilator 01/18/17 11:06 30 Intake and Output 01/17/17 01/17/17 01/18/17 15:00 23:00 07:00 Intake Total 842.96 ml 828.11 ml 995.22 ml Output Total 1175 ml 1310 ml 1180 ml Balance -332.04 ml -481.89 ml -184.78 ml Exam intubated limited exam CN: SAIMA corneals and gag present Motor limited w/d to noxious- sedated Results/Medications Result Diagram: 01/18/17 0430 01/18/17 0430 Results 24 hrs Laboratory Tests Test 01/18/17 04:30 White Blood Count 8.2 Red Blood Count 3.45 L Hemoglobin 9.9 L Hematocrit 30.3 L Mean Corpuscular Volume 87.8 Mean Corpuscular Hemoglobin 28.7 L Mean Corpuscular Hemoglobin Concent 32.7 Red Cell Distribution Width 13.7 Platelet Count 402 Mean Platelet Volume 11.0 H Neutrophils % 68.1 Lymphocytes % 11.5 L Monocytes % 9.8 Eosinophils % 8.4 H Basophils % 0.9 Nucleated Red Blood Cells % 0.0 Neutrophils # 5.6 Lymphocytes # 1.0 Monocytes # 0.8 Eosinophils # 0.7 H Basophils # 0.1 Nucleated Red Blood Cells # 0.0 Sodium Level 144 Potassium Level 3.4 L Chloride Level 102 Carbon Dioxide Level 28 Anion Gap 17 H Blood Urea Nitrogen 8 Creatinine 0.60 L Glucose Level 93 Calcium Level 8.6 Magnesium Level 1.9 Triglycerides Level 1235 H Cholesterol Level 298 H LDL Cholesterol, Calculated 32 HDL Cholesterol 19 L Cholesterol/HDL Ratio 15.6 Amylase Level 66 Lipase 93 Medications Current Medications Acetaminophen (Tylenol Tab) 650 mg Q4H PRN PO pain/fever Last administered on 01/11/17t 07:46; Admin Dose 650 MG; Start 12/31/16 at 01:00 Hydralazine HCl (Apresoline) 25 mg Q6H PRN PO sbp>160; Start 12/31/16 at 01:00 Enalaprilat (Vasotec Iv) 1.25 mg Q6H PRN IV sbp>160; Start 12/31/16 at 01:00 Ondansetron HCl (Zofran Inj) 4 mg Q4H PRN IV nausea; Start 12/31/16 at 01:00 Hydralazine HCl 10 mg 10 mg Q4H PRN IV ELEVATED SYSTOLIC BP Last administered on 01/13/17 16:25; Admin Dose 10 MG; Start 12/31/16 at 05:30 Midazolam HCl 50 ml @ 1 mls/hr TITRATE IV Last administered on 01/18/17 11:44 ; Admin Dose 10 MLS/HR; Start 12/31/16 at 16:30 Vecuronium [place]/Dextrose (Vecuronium [place]/D5W) 100 ml @ 6.03 mls/hr TITRATE IV Last administered on 01/03/17 04:07; Admin Dose 6.03 MLS/HR; Start 01/01/17 at 06:00 Labetalol HCl (Labetalol) 10 mg Q4H PRN IV SBP GREATER THAN 160 Last administered on 01/10/17 22:33; Admin Dose 10 MG; Start 01/01/17 at 12:00 IV Flush (NS 10 ml) 10 ml PRN PRN IV IV PROTOCOL; Start 01/02/17 at 17:00 Lorazepam (Ativan) 2 mg Q2H PRN IV PRN Agitation. Last administered on 08:36; Admin Dose 2 MG; Start 01/04/17 at 09:00 Pantoprazole 40 mg 40 mg BID@06,18 IV Last administered on 01/18/17 05:37; Admin Dose 40 MG; Start 01/06/17 at 09:30 Propofol (Diprivan) 100 ml @ 3.537 mls/ hr Q12H IV Last administered on 09:49; Admin Dose 35.37 MLS/HR; Start 01/10/17 at 09:30 Metoclopramide HCl (Reglan) 10 mg Q6 IV Last administered on 01/18/17 11:55; Admin Dose 10 MG; Start 01/11/17 at 12:00 Valproate Sodium (Depakene Liquid Cup) 500 mg QHS NGT Last administered on 20:26; Admin Dose 500 MG; Start 01/11/17 at 21:00 Haloperidol (Haldol) 5 mg Q6 IV Last administered on 01/18/17 11:55; Admin Dose 5 MG; Start 01/12/17 at 12:00 Carbamazepine (Tegretol Susp) 400 mg QHS NGT Last administered on 01/17/17 20 :29; Admin Dose 400 MG; Start 01/12/17 at 21:00 Carbamazepine (Tegretol Susp) 200 mg QAM GTB Last administered on 01/18/17 09 :55; Admin Dose 200 MG; Start 01/16/17 at 09:00 Trazodone HCl (Desyrel) 150 mg HS PO Last administered on 01/17/17 20:27; Admin Dose 150 MG; Start 01/15/17 at 21:00 Chlordiazepoxide 50 mg 50 mg TID PO Last administered on 01/18/17 08:31; Admin Dose 50 MG; Start 01/17/17 at 13:00 Fentanyl/Dextrose (D5W) 100 ml @ 2.5 mls/hr TITRATE IV Last administered on 02:00; Admin Dose 10 MLS/HR; Start 01/17/17 at 20:00 Quetiapine Fumarate 200 mg 200 mg QID NGT ; Start 01/18/17 at 13:00 Thiamine HCl/ Dextrose (Vitamin B1/D5W) 101 ml @ 202 mls/hr DAILY IV ; Start 01/18/17 at 13:30 Assessment/Plan Chief Complaint/Hosp Course Patient is a 46-year-old male with history of bipolar disorder was admitted on December 31/2017 with altered mental status. His evaluation shows him to be having multidrug overdose and progressed to respiratory failure, bilateral pneumonia, hypercapnia and hypoxemia. He has been intubated and mechanically ventilated and has been sedated for the last 2 weeks. On decreasing sedation he becomes agitated. A CT scan of the brain was unremarkable on admission. An EEG showed severe encephalopathy. Examination was quite limited. Corneals and gag reflexes are present. He withdraws appropriately to noxious stimulus. He appears severely encephalopathic. Plan -MRI Brain unable to obtain at this time due to severe agitation would recommend when more stable -seroquel dose being adjusted -repeat EEG ordered -taper away sedation as tolerated -IV Thiamine 100 mg daily Problems: MARLYN SPANN MD Jan 18, 2017 12:58
[2017-01-18] MEDS: THIAMINE IV SCH (14:15)
[2017-01-18] MEDS: DEXTROSE 5% IV SCH (14:15)
[2017-01-18] MEDS: VALPROIC ACID LIQUID CUP 250 MG/5 ML CUP NGT SCH (21:01)
[2017-01-18] MEDS: traZODone 100 MG TAB PO SCH (21:02)
[2017-01-18] MEDS: carBAMAZEpine SUSP 100 MG/5 ML NGT SCH (21:39)
[2017-01-19] VITALS (38 sets, daily range): BP systolic 88–122; BP diastolic 52–76; PULSE 76–97; RESP 12–24
[2017-01-19] MEDS: ALBUTEROL 18 GM INHALER INH SCH ×4 (01:08→19:02)
[2017-01-19] MEDS: IPRATROPIUM (HFA) 12.9 GM INHALER INH SCH ×4 (01:08→19:02)
[2017-01-19] MEDS: PROPOFOL 100 ML IV SCH ×7 (02:22→23:27)
[2017-01-19 05:35] LABS: BASOPHIL # 0.1 10^3/ul (0.0-0.1); BASOPHILS % 1.6 % (0.0-2.0); EOSINOPHILS # 0.5 10^3/ul (0.0-0.5); EOSINOPHILS % 10.9 % (0.0-7.0); HEMATOCRIT 30.2 % (42.0-52.0); HEMOGLOBIN 9.6 g/dl (14.0-18.0); LYMPHOCYTES % 20.5 % (15.0-51.0); MEAN CORPUSCULAR HEMOGLOBIN 28.2 pg (29.0-33.0); MEAN CORPUSCULAR HGB CONC 31.8 g/dl (32.0-37.0); MEAN CORPUSCULAR VOLUME 88.6 fl (82.0-101.0); MEAN PLATELET VOLUME 10.9 fl (7.4-10.4); MONOCYTE # 0.7 10^3/ul (0.3-0.9); MONOCYTES % 13.6 % (0.0-11.0); NEUTROPHIL # 2.4 10^3/ul (1.6-7.5); NEUTROPHILS % 50.1 % (39.0-77.0); PLATELET COUNT 365 10^3/UL (140-415); RED BLOOD COUNT 3.41 10^6/ul (4.70-6.10); RED CELL DISTRIBUTION WIDTH 14.1 % (11.5-14.5); WHITE BLOOD COUNT 4.9 10^3/ul (4.8-10.8)
[2017-01-19 05:52] LABS: ADD UMIC YES; UR ASCORBIC ACID 20 mg/dL (NEGATIVE); UR BILIRUBIN (Dip) NEGATIVE (NEGATIVE); UR BLOOD (Dip) 2+ mg/dL (NEGATIVE); UR CLARITY CLEAR (CLEAR); UR COLOR YELLOW (YELLOW); UR GLUCOSE (Dip) NEGATIVE (NEGATIVE); UR KETONES (Dip) 1+ mg/dL (NEGATIVE); UR LEUKOCYTE ESTERASE (Dip) NEGATIVE Leu/ul (NEGATIVE); UR NITRITE (Dip) NEGATIVE (NEGATIVE); UR RBC 135 /HPF (0-5); UR SPECIFIC GRAVITY (Dip) 1.015 (1.003-1.030); UR TOTAL PROTEIN (Dip) NEGATIVE (NEGATIVE); UR UROBILINOGEN (Dip) NEGATIVE (NEGATIVE)
[2017-01-19 06:07] LABS: CALCIUM 8.6 mg/dl (8.4-10.2); CREATININE 0.71 mg/dl (0.61-1.24); POTASSIUM 3.8 mmol/L (3.5-5.1)
[2017-01-19] MEDS: PANTOPRAZOLE 40 MG INJ IV SCH ×2 (06:08→19:14)
[2017-01-19] MEDS: METOCLOPRAMIDE 10 MG INJ IV SCH ×3 (06:08→19:13)
[2017-01-19 06:12] LABS: MAGNESIUM 2.1 mg/dl (1.7-2.5)
[2017-01-19] MEDS: HALOPERIDOL 5 MG INJ IV SCH ×3 (06:35→19:13)
[2017-01-19] MEDS: carBAMAZEpine SUSP 100 MG/5 ML GTB SCH (08:45)
[2017-01-19] MEDS: QUETIAPINE 100 MG TAB NGT SCH ×3 (08:45→19:13)
[2017-01-19] MEDS: CHLORDIAZEPOXIDE 25 MG CAP PO SCH ×3 (08:46→20:32)
[2017-01-19] MEDS: THIAMINE IV SCH (08:46)
[2017-01-19] MEDS: DEXTROSE 5% IV SCH (08:46)
[2017-01-19] MEDS: MIDAZOLAM (DRIP) 50 mg/50 mL 50 ML IV SCH ×4 (09:45→23:41)
--- NOTE | 2017-01-19 09:53 | PN ---
Date/Time of Note Date/Time of Note DATE: 01/19/17 TIME: 09:43 Assessment/Plan VTE Prophylaxis VTE Prophylaxis Intervention: SCD's Lines/Catheters IV Catheter Type (from Nrs): PICC Line Central line still needed: Yes (IV access and multiple drips) Urinary Cath still in place: Yes Reason Cath still needed: other (indicate) (Intubated and sedated) Assessment/Plan Assessment/Plan 46 yo male with: 1. Severe encephalopathy 2ry to drug abuse likely Bath salts and/or synthetic marijuana. No other clear etiology so far of encephalopathic, neurology on board, MRI brain pending. Thiamine IV added Patient still with episodes of agitation and requiring multiple sedating agents. Reconciliation and titration of her psychiatric medication hopefully we can start de-escalating on the sedation. We will attempt again to titrate sedating agents down, propofol first followed by fentanyl and benzodiazepines last. Likely encephalopathy secondary to drug use, cannabinoid synthetics and possibly bath salts. He also does have a history of bipolar disorder but 1/2 sister and girlfriend have confirmed that patient is noncompliant with his outpatient antipsychotics and medications CT head 2 since admission are both wnl, EEG showing encephalopathy as expected while patient was on for sedating agent and paralytics. 2. Acute respiratory Failure 2ry to severe Encephalopathy from Drug overuse, intubated, sedated and paralysed. Patient was briefly extubated last week for 2 -1/2 hours but had to be reintubated due to inability to protect his airway, of note he was still on sedating agents. Also likely aspirated and with aspiration PNA vs pneumonitis. Now with concerns for ARDS or pulmonary status post antibiotic course and diuresis. On Lasix given the chest x-ray findings of pulmonary edema versus ARDS. WBC within normal now and chest x-ray has been better. Still on FiO2 of 30% and PEEP of 7 Still on fentanyl, propofol, and Versed for sedation, also getting Haldol and as needed Ativan but hopefully will be able to titrate at least propofol to off. Patient being restarted on Seroquel and Tegretol dosing adjusted to outpatient dosing. Trazodone resumed at night. 3. Bipolar disorder: Likely noncompliant with psychiatric medications. Medication resumed and adjusted to outpatient dosing based on the note from psychiatry 5 days prior to admission that were able to obtain last Wednesday, patient Seroquel can even be titrated higher, according to the notes he was on Seroquel XR, increased to 1000 mg nightly per the latest note. Now on Seroquel to 200 mg QID. Again per the girlfriend it is very likely that the patient was not fully compliant. 4. Right foot Lisfranc fracture: Pain control and ? splint 5. Anemia: Hemoglobin stable at approx 9.0, status post 1 unit pRBC on 01/15. SCDs to lower extremities. On Reglan up to 10 mg IV q6 and proton pump inhibitors. Tolerating tube feedings so far. Patient's 1/2 sister to be called regarding consenting for blood transfusions and procedures. 6. Low-grade temperature, diaphoresis, blood cultures from 01/08 no growth to date. Urine culture from 01/08 no growth to date. Afebrile for a few days and white blood cell count down to normal. OFF abx as of this weekend Cardiac enzymes x1 wnl last week 7. Hypokalemia: Continue to replace potassium as needed, check labs daily especially while patient is on Lasix. Magnesium level wnl. On free water for mild hypernatremia and prerenal azotemia but also being diuresed with increasing dose of Lasix per pulmonary. Prophylaxis: SCDs for DVT prophylaxis, Protonix for GI prophylaxis Disposition: Still in ICU, re-intubated, sedated, trying to weaning off sedation. Family meeting 01/14 did confirm that patient is noncompliant with medication, unfortunately he does have significant behavioral issues including violent behavior. He is a bipolar that seems to be mostly manic most of the time and noncompliant with medications at all. Drug use is an issue. We will try to do our best to have the patient safely extubated soon if not possible he may need tracheostomy and PEG which the 1/2 sister understand and has made does understand that either way she will not be involved in the primary caregiving of patient and he will need to be placed at the time of discharge no matter what his condition is as long as he cannot take care of himself. Subjective 24 Hr Interval Summary Free Text/Dictation Patient's mental status is unchanged, he is on multiple sedating agents, propofol has to be increased back up for MRI today. All psychiatric medications restarted. Patient also started on thiamine. Exam/Review of Systems Vital Signs Vitals Vital Signs Date Time Temp Pulse Resp B/P Pulse Ox O2 Delivery O2 Flow Rate FiO2 01/19/17 07:55 80 22 94 30 01/19/17 07:00 106/62 Mechanical Ventilator 01/19/17 04:00 98.1 Intake and Output 01/18/17 01/18/17 01/19/17 15:00 23:00 07:00 Intake Total 975.115 ml 783.610 ml 914.647 ml Output Total 420 ml 365 ml 235 ml Balance 555.115 ml 418.610 ml 679.647 ml Exam Constitutional: obese, other (Sedated, intubated.) Respiratory: diminished breath sounds (Bases bilaterally), other (On mechanical ventilation) Cardiovascular: nl pulses, regular rate and rhythm Gastrointestinal: non-tender, other (Tolerating tube feedings), soft Musculoskeletal: nl extremities to inspection Extremities: normal pulses, other (No edema, clubbing or cyanosis) Neurological: other (Intubated and sedated, extreme agitation of sedation.) Results Result Diagram: 01/19/17 0450 01/19/17 0450 Results 24 hrs Laboratory Tests Test 01/18/17 15:47 01/19/17 04:50 Urine Color YELLOW Urine Clarity CLEAR Urine pH 6.0 Urine Specific [place] 1.015 Urine Ketones 1+ H Urine Nitrite NEGATIVE Urine Bilirubin NEGATIVE Urine Urobilinogen NEGATIVE Urine Leukocyte Esterase NEGATIVE Urine Microscopic RBC 135 H Urine Microscopic WBC 8 H Urine Hemoglobin 2+ H Urine Glucose NEGATIVE Urine Total Protein NEGATIVE White Blood Count 4.9 # Red Blood Count 3.41 L Hemoglobin 9.6 L Hematocrit 30.2 L Mean Corpuscular Volume 88.6 Mean Corpuscular Hemoglobin 28.2 L Mean Corpuscular Hemoglobin Concent 31.8 L Red Cell Distribution Width 14.1 Platelet Count 365 Mean Platelet Volume 10.9 H Neutrophils % 50.1 Lymphocytes % 20.5 Monocytes % 13.6 H Eosinophils % 10.9 H Basophils % 1.6 Nucleated Red Blood Cells % 0.0 Neutrophils # 2.4 Lymphocytes # 1.0 Monocytes # 0.7 Eosinophils # 0.5 Basophils # 0.1 Nucleated Red Blood Cells # 0.0 Sodium Level 142 Potassium Level 3.8 Chloride Level 101 Carbon Dioxide Level 29 Anion Gap 16 Blood Urea Nitrogen 13 Creatinine 0.71 Glucose Level 103 Calcium Level 8.6 Phosphorus Level 6.0 H Magnesium Level 2.1 Medications Medications Current Medications Acetaminophen (Tylenol Tab) 650 mg Q4H PRN PO pain/fever Last administered on 01/11/17 07:46; Admin Dose 650 MG; Start 12/31/16 at 01:00 Hydralazine HCl (Apresoline) 25 mg Q6H PRN PO sbp>160; Start 12/31/16 at 01:00 Enalaprilat (Vasotec Iv) 1.25 mg Q6H PRN IV sbp>160; Start 12/31/16 at 01:00 Ondansetron HCl (Zofran Inj) 4 mg Q4H PRN IV nausea; Start 12/31/16 at 01:00 Hydralazine HCl 10 mg 10 mg Q4H PRN IV ELEVATED SYSTOLIC BP Last administered on 01/13/17 16:25; Admin Dose 10 MG; Start 12/31/16 at 05:30 Midazolam HCl 50 ml @ 1 mls/hr TITRATE IV Last administered on 01/18/17 22:18 ; Admin Dose 10 MLS/HR; Start 12/31/16 at 16:30 Vecuronium [place]/Dextrose (Vecuronium [place]/D5W) 100 ml @ 6.03 mls/hr TITRATE IV Last administered on 01/03/17 04:07; Admin Dose 6.03 MLS/HR; Start 01/01/17 at 06:00 Labetalol HCl (Labetalol) 10 mg Q4H PRN IV SBP GREATER THAN 160 Last administered on 01/10/17 22:33; Admin Dose 10 MG; Start 01/01/17 at 12:00 IV Flush (NS 10 ml) 10 ml PRN PRN IV IV PROTOCOL; Start 01/02/17 at 17:00 Lorazepam (Ativan) 2 mg Q2H PRN IV PRN Agitation. Last administered on 08:36; Admin Dose 2 MG; Start 01/04/17 at 09:00 Pantoprazole 40 mg 40 mg BID@06,18 IV Last administered on 01/19/17 06:08; Admin Dose 40 MG; Start 01/06/17 at 09:30 Propofol (Diprivan) 100 ml @ 3.537 mls/ hr Q12H IV Last administered on 07:47; Admin Dose 35.37 MLS/HR; Start 01/10/17 at 09:30 Metoclopramide HCl (Reglan) 10 mg Q6 IV Last administered on 01/19/17 06:08; Admin Dose 10 MG; Start 01/11/17 at 12:00 Valproate Sodium (Depakene Liquid Cup) 500 mg QHS NGT Last administered on 21:01; Admin Dose 500 MG; Start 01/11/17 at 21:00 Haloperidol (Haldol) 5 mg Q6 IV Last administered on 01/19/17 06:35; Admin Dose 5 MG; Start 01/12/17 at 12:00 Carbamazepine (Tegretol Susp) 400 mg QHS NGT Last administered on 01/18/17 21 :39; Admin Dose 400 MG; Start 01/12/17 at 21:00 Carbamazepine (Tegretol Susp) 200 mg QAM GTB Last administered on 01/19/17 08 :45; Admin Dose 200 MG; Start 01/16/17 at 09:00 Trazodone HCl (Desyrel) 150 mg HS PO Last administered on 01/18/17 21:02; Admin Dose 150 MG; Start 01/15/17 at 21:00 Chlordiazepoxide 50 mg 50 mg TID PO Last administered on 01/19/17 08:46; Admin Dose 50 MG; Start 01/17/17 at 13:00 Fentanyl/Dextrose (D5W) 100 ml @ 2.5 mls/hr TITRATE IV Last administered on 23:08; Admin Dose 10 MLS/HR; Start 01/17/17 at 20:00 Quetiapine Fumarate 200 mg 200 mg QID NGT Last administered on 01/19/17 08:45 ; Admin Dose 200 MG; Start 01/18/17 at 13:00 Thiamine HCl/ Dextrose (Vitamin B1/D5W) 101 ml @ 202 mls/hr DAILY IV Last administered on 01/19/17 08:46; Admin Dose 202 MLS/HR; Start 01/18/17 at 13: 30 TRENT NEWMAN Jan 19, 2017 09:53
[2017-01-19] MEDS: FENTAnyl 1,000 MCG in DEXTROSE 5% 80 ML IV SCH (09:59)
--- NOTE | 2017-01-19 10:13 | CONS ---
Date/Time of Note Date/Time of Note DATE: 01/19/17 TIME: 10:11 Consult Date/Type/Reason Admit Date/Time Dec 31, 2016 at 00:30 Initial Consult Date 12/31/16 Type of Consultation: Pulmonary Ordering Provider: JEAN MARIE BRAGG MD Subjective Patient remains stable no new events. Intubated and sedated. Objective Vital Signs Date Time Temp Pulse Resp B/P Pulse Ox O2 Delivery O2 Flow Rate FiO2 01/19/17 08:00 81 01/19/17 08:00 30 01/19/17 07:55 22 94 01/19/17 07:00 106/62 Mechanical Ventilator 01/19/17 04:00 98.1 Intake and Output 01/18/17 01/18/17 01/19/17 15:00 23:00 07:00 Intake Total 975.115 ml 783.610 ml 914.647 ml Output Total 420 ml 365 ml 235 ml Balance 555.115 ml 418.610 ml 679.647 ml Exam GENERAL: Well-nourished well-developed gentleman orally intubated on mechanical ventilation VITAL SIGNS: see below. HEENT: Pupils equal, round, and reactive to light. CARDIAC: S1, S2, 1/6 systolic ejection murmur CHEST: Diminished air entry bilaterally. ABDOMEN: Mildly distended. Bowel sounds present no guarding or rebound EXTREMITIES: No cyanosis, clubbing edema +1 NEUROLOGIC: Generalized weakness Results/Medications Result Diagram: 01/19/17 0450 01/19/17 0450 Results 24 hrs Laboratory Tests Test 01/18/17 15:47 01/19/17 04:50 Urine Color YELLOW Urine Clarity CLEAR Urine pH 6.0 Urine Specific [place] 1.015 Urine Ketones 1+ H Urine Nitrite NEGATIVE Urine Bilirubin NEGATIVE Urine Urobilinogen NEGATIVE Urine Leukocyte Esterase NEGATIVE Urine Microscopic RBC 135 H Urine Microscopic WBC 8 H Urine Hemoglobin 2+ H Urine Glucose NEGATIVE Urine Total Protein NEGATIVE White Blood Count 4.9 # Red Blood Count 3.41 L Hemoglobin 9.6 L Hematocrit 30.2 L Mean Corpuscular Volume 88.6 Mean Corpuscular Hemoglobin 28.2 L Mean Corpuscular Hemoglobin Concent 31.8 L Red Cell Distribution Width 14.1 Platelet Count 365 Mean Platelet Volume 10.9 H Neutrophils % 50.1 Lymphocytes % 20.5 Monocytes % 13.6 H Eosinophils % 10.9 H Basophils % 1.6 Nucleated Red Blood Cells % 0.0 Neutrophils # 2.4 Lymphocytes # 1.0 Monocytes # 0.7 Eosinophils # 0.5 Basophils # 0.1 Nucleated Red Blood Cells # 0.0 Sodium Level 142 Potassium Level 3.8 Chloride Level 101 Carbon Dioxide Level 29 Anion Gap 16 Blood Urea Nitrogen 13 Creatinine 0.71 Glucose Level 103 Calcium Level 8.6 Phosphorus Level 6.0 H Magnesium Level 2.1 Medications Current Medications Acetaminophen (Tylenol Tab) 650 mg Q4H PRN PO pain/fever Last administered on 01/11/17 07:46; Admin Dose 650 MG; Start 12/31/16 at 01:00 Hydralazine HCl (Apresoline) 25 mg Q6H PRN PO sbp>160; Start 12/31/16 at 01:00 Enalaprilat (Vasotec Iv) 1.25 mg Q6H PRN IV sbp>160; Start 12/31/16 at 01:00 Ondansetron HCl (Zofran Inj) 4 mg Q4H PRN IV nausea; Start 12/31/16 at 01:00 Hydralazine HCl 10 mg 10 mg Q4H PRN IV ELEVATED SYSTOLIC BP Last administered on 01/13/17 16:25; Admin Dose 10 MG; Start 12/31/16 at 05:30 Midazolam HCl 50 ml @ 1 mls/hr TITRATE IV Last administered on 01/19/17 09:45 ; Admin Dose 10 MLS/HR; Start 12/31/16 at 16:30 Vecuronium [place]/Dextrose (Vecuronium [place]/D5W) 100 ml @ 6.03 mls/hr TITRATE IV Last administered on 01/03/17 04:07; Admin Dose 6.03 MLS/HR; Start 01/01/17 at 06:00 Labetalol HCl (Labetalol) 10 mg Q4H PRN IV SBP GREATER THAN 160 Last administered on 01/10/17 22:33; Admin Dose 10 MG; Start 01/01/17 at 12:00 IV Flush (NS 10 ml) 10 ml PRN PRN IV IV PROTOCOL; Start 01/02/17 at 17:00 Lorazepam (Ativan) 2 mg Q2H PRN IV PRN Agitation. Last administered on 08:36; Admin Dose 2 MG; Start 01/04/17 at 09:00 Pantoprazole 40 mg 40 mg BID@06,18 IV Last administered on 01/19/17 06:08; Admin Dose 40 MG; Start 01/06/17 at 09:30 Propofol (Diprivan) 100 ml @ 3.537 mls/ hr Q12H IV Last administered on 07:47; Admin Dose 35.37 MLS/HR; Start 01/10/17 at 09:30 Metoclopramide HCl (Reglan) 10 mg Q6 IV Last administered on 01/19/17 06:08; Admin Dose 10 MG; Start 01/11/17 at 12:00 Valproate Sodium (Depakene Liquid Cup) 500 mg QHS NGT Last administered on 21:01; Admin Dose 500 MG; Start 01/11/17 at 21:00 Haloperidol (Haldol) 5 mg Q6 IV Last administered on 01/19/17 06:35; Admin Dose 5 MG; Start 01/12/17 at 12:00 Carbamazepine (Tegretol Susp) 400 mg QHS NGT Last administered on 01/18/17 21 :39; Admin Dose 400 MG; Start 01/12/17 at 21:00 Carbamazepine (Tegretol Susp) 200 mg QAM GTB Last administered on 01/19/17 08 :45; Admin Dose 200 MG; Start 01/16/17 at 09:00 Trazodone HCl (Desyrel) 150 mg HS PO Last administered on 01/18/17 21:02; Admin Dose 150 MG; Start 01/15/17 at 21:00 Chlordiazepoxide 50 mg 50 mg TID PO Last administered on 01/19/17 08:46; Admin Dose 50 MG; Start 01/17/17 at 13:00 Fentanyl/Dextrose (D5W) 100 ml @ 2.5 mls/hr TITRATE IV Last administered on 09:59; Admin Dose 10 MLS/HR; Start 01/17/17 at 20:00 Quetiapine Fumarate 200 mg 200 mg QID NGT Last administered on 01/19/17 08:45 ; Admin Dose 200 MG; Start 01/18/17 at 13:00 Thiamine HCl/ Dextrose (Vitamin B1/D5W) 101 ml @ 202 mls/hr DAILY IV Last administered on 01/19/17t 08:46; Admin Dose 202 MLS/HR; Start 01/18/17 at 13: 30 Polyethylene Glycol (Miralax) 17 gm DAILY NGT ; Start 01/19/17 at 10:00 Docusate Sodium (Colace Liquid Cup) 100 mg BID PRN NGT CONSTIPATION; Start at 10:00 Assessment/Plan Chief Complaint/Hosp Course IMP: 1. Hypoxic respiratory failure/Vent Dependence 2. Acute Lung Injury/ARDS 3. History of drug overdose 4. 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 5. Likely ALEX 6. Anemia 7. Persistent need for propofol concerning for possible pancreatitis elevated triglyceride levels. Differential does include propofol infusion syndrome. RECS: 1. Continue mechanical ventilation. Patient unlikely to be safely liberated from mechanical ventilation, I would recommend tracheostomy and PEG tube placement. 2. Vent--> change to VC+; rate 20; Vt 500; PEEP 7 3. d/c iVF replace potassium. Potassium protocol. 4. TF/Free H20 5. Lasix daily 6. Adjust psych medications. Trial of Librium. Decrease propofol as tolerated. 7. Hypertriglyceridemia. Secondary to propofol. No evidence of pancreatitis yet. 8. MRI and EEG. Problems: BRIANNA SAAVEDRA MD, [facility] Jan 19, 2017 10:13
--- NOTE | 2017-01-19 11:46 | CONS ---
Date/Time of Note Date/Time of Note DATE: 01/19/17 TIME: 11:45 Consult Date/Type/Reason Admit Date/Time Dec 31, 2016 at 00:30 Initial Consult Date 01/17/17 Type of Consultation: Neurology Reason for Consultation encephalopathy , agitation Ordering Provider: JEAN MARIE BRAGG MD Subjective on several drips versed, fentanyl and propofol Objective Vital Signs Date Time Temp Pulse Resp B/P Pulse Ox O2 Delivery O2 Flow Rate FiO2 01/19/17 11:15 80 22 97 30 01/19/17 10:00 110/75 Mechanical Ventilator 01/19/17 08:00 98.2 Intake and Output 01/18/17 01/18/17 01/19/17 15:00 23:00 07:00 Intake Total 975.115 ml 783.610 ml 914.647 ml Output Total 420 ml 365 ml 235 ml Balance 555.115 ml 418.610 ml 679.647 ml Exam intubated limited exam CN: SAIMA corneals and gag present Motor limited w/d to noxious- sedated Results/Medications Result Diagram: 01/19/17 0450 01/19/17 0450 Results 24 hrs Laboratory Tests Test 01/18/17 15:47 01/19/17 04:50 Urine Color YELLOW Urine Clarity CLEAR Urine pH 6.0 Urine Specific [place] 1.015 Urine Ketones 1+ H Urine Nitrite NEGATIVE Urine Bilirubin NEGATIVE Urine Urobilinogen NEGATIVE Urine Leukocyte Esterase NEGATIVE Urine Microscopic RBC 135 H Urine Microscopic WBC 8 H Urine Hemoglobin 2+ H Urine Glucose NEGATIVE Urine Total Protein NEGATIVE White Blood Count 4.9 # Red Blood Count 3.41 L Hemoglobin 9.6 L Hematocrit 30.2 L Mean Corpuscular Volume 88.6 Mean Corpuscular Hemoglobin 28.2 L Mean Corpuscular Hemoglobin Concent 31.8 L Red Cell Distribution Width 14.1 Platelet Count 365 Mean Platelet Volume 10.9 H Neutrophils % 50.1 Lymphocytes % 20.5 Monocytes % 13.6 H Eosinophils % 10.9 H Basophils % 1.6 Nucleated Red Blood Cells % 0.0 Neutrophils # 2.4 Lymphocytes # 1.0 Monocytes # 0.7 Eosinophils # 0.5 Basophils # 0.1 Nucleated Red Blood Cells # 0.0 Sodium Level 142 Potassium Level 3.8 Chloride Level 101 Carbon Dioxide Level 29 Anion Gap 16 Blood Urea Nitrogen 13 Creatinine 0.71 Glucose Level 103 Calcium Level 8.6 Phosphorus Level 6.0 H Magnesium Level 2.1 Medications Current Medications Acetaminophen (Tylenol Tab) 650 mg Q4H PRN PO pain/fever Last administered on 01/11/17 07:46; Admin Dose 650 MG; Start 12/31/16 at 01:00 Hydralazine HCl (Apresoline) 25 mg Q6H PRN PO sbp>160; Start 12/31/16 at 01:00 Enalaprilat (Vasotec Iv) 1.25 mg Q6H PRN IV sbp>160; Start 12/31/16 at 01:00 Ondansetron HCl (Zofran Inj) 4 mg Q4H PRN IV nausea; Start 12/31/16 at 01:00 Hydralazine HCl 10 mg 10 mg Q4H PRN IV ELEVATED SYSTOLIC BP Last administered on 01/13/17 16:25; Admin Dose 10 MG; Start 12/31/16 at 05:30 Midazolam HCl 50 ml @ 1 mls/hr TITRATE IV Last administered on 01/19/17 09:45 ; Admin Dose 10 MLS/HR; Start 12/31/16 at 16:30 Vecuronium [place]/Dextrose (Vecuronium [place]/D5W) 100 ml @ 6.03 mls/hr TITRATE IV Last administered on 01/03/17 04:07; Admin Dose 6.03 MLS/HR; Start 01/01/17 at 06:00 Labetalol HCl (Labetalol) 10 mg Q4H PRN IV SBP GREATER THAN 160 Last administered on 01/10/17 22:33; Admin Dose 10 MG; Start 01/01/17 at 12:00 IV Flush (NS 10 ml) 10 ml PRN PRN IV IV PROTOCOL; Start 01/02/17 at 17:00 Lorazepam (Ativan) 2 mg Q2H PRN IV PRN Agitation. Last administered on 08:36; Admin Dose 2 MG; Start 01/04/17 at 09:00 Pantoprazole 40 mg 40 mg BID@06,18 IV Last administered on 01/19/17 06:08; Admin Dose 40 MG; Start 01/06/17 at 09:30 Propofol (Diprivan) 100 ml @ 3.537 mls/ hr Q12H IV Last administered on 11:01; Admin Dose 35.37 MLS/HR; Start 01/10/17 at 09:30 Metoclopramide HCl (Reglan) 10 mg Q6 IV Last administered on 01/19/17 06:08; Admin Dose 10 MG; Start 01/11/17 at 12:00 Valproate Sodium (Depakene Liquid Cup) 500 mg QHS NGT Last administered on 21:01; Admin Dose 500 MG; Start 01/11/17 at 21:00 Haloperidol (Haldol) 5 mg Q6 IV Last administered on 01/19/17 06:35; Admin Dose 5 MG; Start 01/12/17 at 12:00 Carbamazepine (Tegretol Susp) 400 mg QHS NGT Last administered on 01/18/17 21 :39; Admin Dose 400 MG; Start 01/12/17 at 21:00 Carbamazepine (Tegretol Susp) 200 mg QAM GTB Last administered on 01/19/17 08 :45; Admin Dose 200 MG; Start 01/16/17 at 09:00 Trazodone HCl (Desyrel) 150 mg HS PO Last administered on 01/18/17 21:02; Admin Dose 150 MG; Start 01/15/17 at 21:00 Chlordiazepoxide 50 mg 50 mg TID PO Last administered on 01/19/17 08:46; Admin Dose 50 MG; Start 01/17/17 at 13:00 Fentanyl/Dextrose (D5W) 100 ml @ 2.5 mls/hr TITRATE IV Last administered on 09:59; Admin Dose 10 MLS/HR; Start 01/17/17 at 20:00 Quetiapine Fumarate 200 mg 200 mg QID NGT Last administered on 01/19/17 08:45 ; Admin Dose 200 MG; Start 01/18/17 at 13:00 Thiamine HCl/ Dextrose (Vitamin B1/D5W) 101 ml @ 202 mls/hr DAILY IV Last administered on 01/19/17 08:46; Admin Dose 202 MLS/HR; Start 01/18/17 at 13: 30 Polyethylene Glycol (Miralax) 17 gm DAILY NGT ; Start 01/19/17 at 10:00 Docusate Sodium (Colace Liquid Cup) 100 mg BID PRN NGT CONSTIPATION; Start at 10:00 Assessment/Plan Chief Complaint/Hosp Course Patient is a 46-year-old male with history of bipolar disorder was admitted on December 31/2017 with altered mental status. His evaluation shows him to be having multidrug overdose and progressed to respiratory failure, bilateral pneumonia, hypercapnia and hypoxemia. He has been intubated and mechanically ventilated and has been sedated for the last 2 weeks. On decreasing sedation he becomes agitated. A CT scan of the brain was unremarkable on admission. An EEG showed severe encephalopathy. Examination was quite limited. Corneals and gag reflexes are present. He withdraws appropriately to noxious stimulus. He appears severely encephalopathic. Plan -MRI Brain planned this afternoon -seroquel dose being adjusted -repeat EEG ordered -taper away sedation as tolerated -IV Thiamine 100 mg daily Problems: MARLYN SPANN MD Jan 19, 2017 11:46
--- NOTE | 2017-01-19 12:04 | PN ---
Date/Time of Note Date/Time of Note DATE: 01/19/17 TIME: 12:02 Assessment/Plan VTE Prophylaxis VTE Prophylaxis Intervention: SCD's Lines/Catheters IV Catheter Type (from Nrsg): PICC Line Central line still needed: Yes (meds) Urinary Cath still in place: Yes (output) Reason Cath still needed: other (indicate) (monitor output) Assessment/Plan Chief Complaint/Hosp Course Assessment: Anemia-improved Severe encephalopathy Likely secondary to drug use Acute Respiratory failure Intubated and sedated Extubation with Bipap attempted and failed 01/13 after 2 hours pt reintubated Plan: No changes Hgb now stable Tolerating OG feeding well Continue all supportive care Patient seen in collaboration with Dr. Miranda Subjective: Course reviewed with nursing staff Patient interviewed and examined All labs, imaging and other results reviewed Patient remains intubated and sedated no recent changes, plan for MRI of brain today May need PEG placement in future Exam Constitutional: well developed, sedated and intubated Psych: unable to assess Head: atraumatic, normocephalic Eyes: EOMI, nl conjunctiva, nl lids ENMT: nl external ears & nose, nl lips & teeth, nl nasal mucosa & septum Neck: non-tender, supple Respiratory: Bilateral Rales Cardiovascular: nl pulses, regular rate and rhythm Gastrointestinal: hypoactive bowel sounds, soft Problems: Exam/Review of Systems Vital Signs Vitals Vital Signs Date Time Temp Pulse Resp B/P Pulse Ox O2 Delivery O2 Flow Rate FiO2 01/19/17 11:15 80 22 97 30 01/19/17 10:00 110/75 Mechanical Ventilator 01/19/17 08:00 98.2 Intake and Output 01/18/17 01/18/17 01/19/17 15:00 23:00 07:00 Intake Total 975.115 ml 783.610 ml 914.647 ml Output Total 420 ml 365 ml 235 ml Balance 555.115 ml 418.610 ml 679.647 ml Results Result Diagram: 01/19/17 0450 01/19/17 0450 Results 24 hrs Laboratory Tests Test 01/18/17 15:47 01/19/17 04:50 Urine Color YELLOW Urine Clarity CLEAR Urine pH 6.0 Urine Specific [place] 1.015 Urine Ketones 1+ H Urine Nitrite NEGATIVE Urine Bilirubin NEGATIVE Urine Urobilinogen NEGATIVE Urine Leukocyte Esterase NEGATIVE Urine Microscopic RBC 135 H Urine Microscopic WBC 8 H Urine Hemoglobin 2+ H Urine Glucose NEGATIVE Urine Total Protein NEGATIVE White Blood Count 4.9 # Red Blood Count 3.41 L Hemoglobin 9.6 L Hematocrit 30.2 L Mean Corpuscular Volume 88.6 Mean Corpuscular Hemoglobin 28.2 L Mean Corpuscular Hemoglobin Concent 31.8 L Red Cell Distribution Width 14.1 Platelet Count 365 Mean Platelet Volume 10.9 H Neutrophils % 50.1 Lymphocytes % 20.5 Monocytes % 13.6 H Eosinophils % 10.9 H Basophils % 1.6 Nucleated Red Blood Cells % 0.0 Neutrophils # 2.4 Lymphocytes # 1.0 Monocytes # 0.7 Eosinophils # 0.5 Basophils # 0.1 Nucleated Red Blood Cells # 0.0 Sodium Level 142 Potassium Level 3.8 Chloride Level 101 Carbon Dioxide Level 29 Anion Gap 16 Blood Urea Nitrogen 13 Creatinine 0.71 Glucose Level 103 Calcium Level 8.6 Phosphorus Level 6.0 H Magnesium Level 2.1 Medications Medications Current Medications Acetaminophen (Tylenol Tab) 650 mg Q4H PRN PO pain/fever Last administered on 01/11/17 07:46; Admin Dose 650 MG; Start 12/31/16 at 01:00 Hydralazine HCl (Apresoline) 25 mg Q6H PRN PO sbp>160; Start 12/31/16 at 01:00 Enalaprilat (Vasotec Iv) 1.25 mg Q6H PRN IV sbp>160; Start 12/31/16 at 01:00 Ondansetron HCl (Zofran Inj) 4 mg Q4H PRN IV nausea; Start 12/31/16 at 01:00 Hydralazine HCl 10 mg 10 mg Q4H PRN IV ELEVATED SYSTOLIC BP Last administered on 01/13/17 16:25; Admin Dose 10 MG; Start 12/31/16 at 05:30 Midazolam HCl 50 ml @ 1 mls/hr TITRATE IV Last administered on 01/19/17 09:45 ; Admin Dose 10 MLS/HR; Start 12/31/16 at 16:30 Vecuronium [place]/Dextrose (Vecuronium [place]/D5W) 100 ml @ 6.03 mls/hr TITRATE IV Last administered on 01/03/17 04:07; Admin Dose 6.03 MLS/HR; Start 01/01/17 at 06:00 Labetalol HCl (Labetalol) 10 mg Q4H PRN IV SBP GREATER THAN 160 Last administered on 01/10/17 22:33; Admin Dose 10 MG; Start 01/01/17 at 12:00 IV Flush (NS 10 ml) 10 ml PRN PRN IV IV PROTOCOL; Start 01/02/17 at 17:00 Lorazepam (Ativan) 2 mg Q2H PRN IV PRN Agitation. Last administered on 08:36; Admin Dose 2 MG; Start 01/04/17 at 09:00 Pantoprazole 40 mg 40 mg BID@06,18 IV Last administered on 01/19/17 06:08; Admin Dose 40 MG; Start 01/06/17 at 09:30 Propofol (Diprivan) 100 ml @ 3.537 mls/ hr Q12H IV Last administered on 11:01; Admin Dose 35.37 MLS/HR; Start 01/10/17 at 09:30 Metoclopramide HCl (Reglan) 10 mg Q6 IV Last administered on 01/19/17 06:08; Admin Dose 10 MG; Start 01/11/17 at 12:00 Valproate Sodium (Depakene Liquid Cup) 500 mg QHS NGT Last administered on 21:01; Admin Dose 500 MG; Start 01/11/17 at 21:00 Haloperidol (Haldol) 5 mg Q6 IV Last administered on 01/19/17 06:35; Admin Dose 5 MG; Start 01/12/17 at 12:00 Carbamazepine (Tegretol Susp) 400 mg QHS NGT Last administered on 01/18/17 21 :39; Admin Dose 400 MG; Start 01/12/17 at 21:00 Carbamazepine (Tegretol Susp) 200 mg QAM GTB Last administered on 01/19/17 08 :45; Admin Dose 200 MG; Start 01/16/17 at 09:00 Trazodone HCl (Desyrel) 150 mg HS PO Last administered on 01/18/17 21:02; Admin Dose 150 MG; Start 01/15/17 at 21:00 Chlordiazepoxide 50 mg 50 mg TID PO Last administered on 01/19/17 08:46; Admin Dose 50 MG; Start 01/17/17 at 13:00 Fentanyl/Dextrose (D5W) 100 ml @ 2.5 mls/hr TITRATE IV Last administered on 09:59; Admin Dose 10 MLS/HR; Start 01/17/17 at 20:00 Quetiapine Fumarate 200 mg 200 mg QID NGT Last administered on 01/19/17 08:45 ; Admin Dose 200 MG; Start 01/18/17 at 13:00 Thiamine HCl/ Dextrose (Vitamin B1/D5W) 101 ml @ 202 mls/hr DAILY IV Last administered on 01/19/17 08:46; Admin Dose 202 MLS/HR; Start 01/18/17 at 13: 30 Polyethylene Glycol (Miralax) 17 gm DAILY NGT ; Start 01/19/17 at 10:00 Docusate Sodium (Colace Liquid Cup) 100 mg BID PRN NGT CONSTIPATION; Start at 10:00 JULY MCKENNA Jan 19, 2017 12:04
[2017-01-19] MEDS: POLYETHYLENE GLYCOL 17 GM PACKET NGT SCH (12:20)
--- NOTE | 2017-01-19 14:44 | RADRPT ---
Vent Rate: 83 bpm RR Interval: 0 msec OH Interval: 150 msec QRS Duration: 84 msec QT Interval: 420 msec QTC Interval: 493 msec P-R-T [place]: 46 - -47 - 58 degrees Normal sinus rhythm Left axis deviation Septal infarct , age undetermined Abnormal ECG Electronically Signed By: Tristin Boggs [id number]
--- NOTE | 2017-01-19 15:01 | SP ---
DATE OF PROCEDURE: 01/18/2017 HISTORY: This is a 46-year-old male who was admitted with altered and progressed to respiratory haydee lure. He has a history of drug use and bipolar disorder and also had an episode of hypoxemia. A pr evious EEG showed severe encephalopathy. This is a repeat EEG. CURRENT MEDICATIONS: 1. Fentanyl. 2. Librium 3. Tegretol. 4. Depakene. 5. Haldol. PROCEDURE: Utilizing a 16-channel EEG machine, cap scalp electrodes were applied in accordance with International 10-20 system. [id number] and [id number] montages were displayed. Electrical i mpedances were measured and reported. DESCRIPTION: During the resting state, a posterior dominant rhythm of about 4-5 Hz low amplitude wa ves were seen bihemispherically. Photic stimulation had no response. Hyperventilation was not perf ormed. There was no focal lateralizing or epileptiform discharge identified. INTERPRETATION: This is an abnormal EEG due to presence of generalized bihemispheric background slo wing without epileptiform activity, consistent with encephalopathy without epileptiform activity. Johnson nassar correlate these findings with the patient's clinical picture. Dictated By: SALINA PEREIRA/SHANELLE Conf#: [id number] DID#: [id number]
[2017-01-19] MEDS: FENTAnyl (DRIP) 1000 mcg/100mL 100 ML IV SCH (16:48)
[2017-01-19] MEDS: traZODone 100 MG TAB PO SCH (20:31)
[2017-01-19] MEDS: VALPROIC ACID LIQUID CUP 250 MG/5 ML CUP NGT SCH (20:31)
[2017-01-20] VITALS (37 sets, daily range): BP systolic 90–159; BP diastolic 57–103; PULSE 79–115; RESP 13–33
[2017-01-20] MEDS: HALOPERIDOL 5 MG INJ IV SCH ×5 (00:45→23:09)
[2017-01-20] MEDS: QUETIAPINE 100 MG TAB NGT SCH ×5 (00:45→20:08)
[2017-01-20] MEDS: carBAMAZEpine SUSP 100 MG/5 ML NGT SCH ×2 (00:45→20:08)
[2017-01-20] MEDS: LORAZEPAM 2 MG INJ IV PRN ×5 (01:06→23:09)
[2017-01-20] MEDS: METOCLOPRAMIDE 10 MG INJ IV SCH ×5 (01:10→23:08)
[2017-01-20] MEDS: ALBUTEROL 18 GM INHALER INH SCH ×4 (01:17→19:38)
[2017-01-20] MEDS: IPRATROPIUM (HFA) 12.9 GM INHALER INH SCH ×4 (01:17→19:38)
[2017-01-20] MEDS: PROPOFOL 100 ML IV SCH ×6 (02:09→22:36)
[2017-01-20] MEDS: MIDAZOLAM (DRIP) 50 mg/50 mL 50 ML IV SCH ×4 (04:58→21:19)
[2017-01-20 05:03] LABS: BASOPHIL # 0.1 10^3/ul (0.0-0.1); BASOPHILS % 0.8 % (0.0-2.0); EOSINOPHILS # 0.6 10^3/ul (0.0-0.5); EOSINOPHILS % 7.3 % (0.0-7.0); HEMOGLOBIN 9.7 g/dl (14.0-18.0); MEAN CORPUSCULAR HEMOGLOBIN 28.5 pg (29.0-33.0); MEAN CORPUSCULAR HGB CONC 32.3 g/dl (32.0-37.0); MEAN CORPUSCULAR VOLUME 88.2 fl (82.0-101.0); MEAN PLATELET VOLUME 10.8 fl (7.4-10.4); MONOCYTE # 0.8 10^3/ul (0.3-0.9); MONOCYTES % 10.2 % (0.0-11.0); NEUTROPHIL # 5.3 10^3/ul (1.6-7.5); NEUTROPHILS % 67.6 % (39.0-77.0); PLATELET COUNT 330 10^3/UL (140-415); RED CELL DISTRIBUTION WIDTH 13.9 % (11.5-14.5); WHITE BLOOD COUNT 7.9 10^3/ul (4.8-10.8)
[2017-01-20] MEDS: PANTOPRAZOLE 40 MG INJ IV SCH ×2 (05:31→17:36)
[2017-01-20 05:39] LABS: ALBUMIN 3.1 g/dl (3.3-4.9); ALBUMIN/GLOBULIN RATIO 0.83; BILIRUBIN,INDIRECT 0.1 mg/dl (0-1.1); BILIRUBIN,TOTAL 0.1 mg/dl (0.2-1.3); CALCIUM 8.6 mg/dl (8.4-10.2); CREATININE 0.65 mg/dl (0.61-1.24); POTASSIUM 3.6 mmol/L (3.5-5.1); TOTAL PROTEIN 6.8 g/dl (6.1-8.1)
[2017-01-20 05:43] LABS: CHOL/HDL RATIO 13.5 RATIO; MAGNESIUM 1.8 mg/dl (1.7-2.5); PHOSPHORUS 4.9 mg/dl (2.5-4.9)
[2017-01-20] MEDS: FENTAnyl (DRIP) 1000 mcg/100mL 100 ML IV SCH ×2 (06:10→16:05)
--- NOTE | 2017-01-20 07:27 | RADRPT ---
PROCEDURE: MR Brain without contrast. CLINICAL INDICATION: Acute encephalopathy. TECHNIQUE: An MRI of the brain was performed on a GE short bore high-definition 1.5 luz scanner utilizing the following sequences: Sagittal and axial T1 weighted, axial T2 weighted, coronal GRE, axial diffusion weighted with ADC mapping, and axial FLAIR. COMPARISON: None FINDINGS: No diffusion weighted abnormalities are seen to suggest the presence of acute ischemia or recent inf arct. No hypointense signal abnormalities are seen on the GRE images to suggest the presence of blo od degradation products. There is no evidence of intracranial hemorrhage, mass effect, or midline s hift. No extra-axial fluid collections are seen. The ventricles and sulci are normal in size and con figuration. The signal intensity is normal throughout the cerebrum, brainstem, and cerebellum. Nor mal flow voids are visible in the proximal intracranial arteries and dural sinuses, indicating paten cy. The sellar, parasellar regions are normal. There is mucosal thickening in the frontal, ethmoid, sphenoid and maxillary sinuses, greater on the left. there is deformity of the left papyracea. Fluid is present in nasal cavity, pharynx, bilateral mastoid air cells and middle ear cavities. IMPRESSION: No evidence of acute ischemia or encephalitis. Pansinusitis. Bilateral mastoid effusions and middle ear disease. Physician Genie Date Time Electronically viewed and signed by Physician Genie on 01/20/2017 07:27 /
[2017-01-20] MEDS: POLYETHYLENE GLYCOL 17 GM PACKET NGT SCH (08:19)
[2017-01-20] MEDS: CHLORDIAZEPOXIDE 25 MG CAP PO SCH ×3 (08:19→20:08)
[2017-01-20] MEDS: carBAMAZEpine SUSP 100 MG/5 ML GTB SCH (08:19)
[2017-01-20] MEDS: THIAMINE IV SCH (08:20)
[2017-01-20] MEDS: DEXTROSE 5% IV SCH (08:20)
--- NOTE | 2017-01-20 12:10 | CONS ---
Date/Time of Note Date/Time of Note DATE: 01/20/17 TIME: 12:07 Consult Date/Type/Reason Admit Date/Time Dec 31, 2016 at 00:30 Initial Consult Date 12/31/16 Type of Consultation: Pulm Ordering Provider: JEAN MARIE BRAGG MD Subjective No events, remains stable. Agitated off sedation. Objective Vital Signs Date Time Temp Pulse Resp B/P Pulse Ox O2 Delivery O2 Flow Rate FiO2 01/20/17 10:49 106 30 97 30 01/20/17 08:00 98.6 95/65 Mechanical Ventilator Intake and Output 01/19/17 01/19/17 01/20/17 15:00 23:00 07:00 Intake Total 898.59 ml 879.96 ml 948.44 ml Output Total 210 ml 745 ml 630 ml Balance 688.59 ml 134.96 ml 318.44 ml Exam GENERAL: Well-nourished well-developed gentleman orally intubated on mechanical ventilation VITAL SIGNS: see below. HEENT: Pupils equal, round, and reactive to light. CARDIAC: S1, S2, 1/6 systolic ejection murmur CHEST: Diminished air entry bilaterally. ABDOMEN: Mildly distended. Bowel sounds present no guarding or rebound EXTREMITIES: No cyanosis, clubbing edema +1 NEUROLOGIC: Generalized weakness Results/Medications Result Diagram: 01/20/1744001/20/17440 Results 24 hrs Laboratory Tests Test 01/20/17 04:41 White Blood Count 7.9 # Red Blood Count 3.40 L Hemoglobin 9.7 L Hematocrit 30.0 L Mean Corpuscular Volume 88.2 Mean Corpuscular Hemoglobin 28.5 L Mean Corpuscular Hemoglobin Concent 32.3 Red Cell Distribution Width 13.9 Platelet Count 330 Mean Platelet Volume 10.8 H Neutrophils % 67.6 Lymphocytes % 13.0 L Monocytes % 10.2 Eosinophils % 7.3 H Basophils % 0.8 Nucleated Red Blood Cells % 0.0 Neutrophils # 5.3 Lymphocytes # 1.0 Monocytes # 0.8 Eosinophils # 0.6 H Basophils # 0.1 Nucleated Red Blood Cells # 0.0 Sodium Level 142 Potassium Level 3.6 Chloride Level 104 Carbon Dioxide Level 28 Anion Gap 14 Blood Urea Nitrogen 11 Creatinine 0.65 Glucose Level 101 Calcium Level 8.6 Phosphorus Level 4.9 Magnesium Level 1.8 Total Bilirubin 0.1 L Direct Bilirubin 0.00 Indirect Bilirubin 0.1 Aspartate Amino Transf (AST/SGOT) 31 Alanine Aminotransferase (ALT/SGPT) 50 Alkaline Phosphatase 210 H Total Protein 6.8 Albumin 3.1 L Globulin 3.70 H Albumin/Globulin Ratio 0.83 Triglycerides Level 986 H Cholesterol Level 299 H LDL Cholesterol, Calculated 80 HDL Cholesterol 22 L Cholesterol/HDL Ratio 13.5 Medications Current Medications Acetaminophen (Tylenol Tab) 650 mg Q4H PRN PO pain/fever Last administered on 01/11/17 07:46; Admin Dose 650 MG; Start 12/31/16 at 01:00 Hydralazine HCl (Apresoline) 25 mg Q6H PRN PO sbp>160; Start 12/31/16 at 01:00 Enalaprilat (Vasotec Iv) 1.25 mg Q6H PRN IV sbp>160; Start 12/31/16 at 01:00 Ondansetron HCl (Zofran Inj) 4 mg Q4H PRN IV nausea; Start 12/31/16 at 01:00 Hydralazine HCl 10 mg 10 mg Q4H PRN IV ELEVATED SYSTOLIC BP Last administered on 01/13/17 16:25; Admin Dose 10 MG; Start 12/31/16 at 05:30 Midazolam HCl 50 ml @ 1 mls/hr TITRATE IV Last administered on 01/20/17 04:58 ; Admin Dose 10 MLS/HR; Start 12/31/16 at 16:30 Vecuronium [place]/Dextrose (Vecuronium [place]/D5W) 100 ml @ 6.03 mls/hr TITRATE IV Last administered on 01/03/17 04:07; Admin Dose 6.03 MLS/HR; Start 01/01/17 at 06:00 Labetalol HCl (Labetalol) 10 mg Q4H PRN IV SBP GREATER THAN 160 Last administered on 01/10/17 22:33; Admin Dose 10 MG; Start 01/01/17 at 12:00 IV Flush (NS 10 ml) 10 ml PRN PRN IV IV PROTOCOL; Start 01/02/17 at 17:00 Lorazepam (Ativan) 2 mg Q2H PRN IV PRN Agitation. Last administered on 03:40; Admin Dose 2 MG; Start 01/04/17 at 09:00 Pantoprazole 40 mg 40 mg BID@06,18 IV Last administered on 01/20/17 05:31; Admin Dose 40 MG; Start 01/06/17 at 09:30 Propofol (Diprivan) 100 ml @ 3.537 mls/ hr Q12H IV Last administered on 09:38; Admin Dose 14.148 MLS/HR; Start 01/10/17 at 09:30 Metoclopramide HCl (Reglan) 10 mg Q6 IV Last administered on 01/20/17 05:30; Admin Dose 10 MG; Start 01/11/17 at 12:00 Valproate Sodium (Depakene Liquid Cup) 500 mg QHS NGT Last administered on 20:31; Admin Dose 500 MG; Start 01/11/17 at 21:00 Haloperidol (Haldol) 5 mg Q6 IV Last administered on 01/20/17 05:30; Admin Dose 5 MG; Start 01/12/17 at 12:00 Carbamazepine (Tegretol Susp) 400 mg QHS NGT Last administered on 01/20/17 00: 45; Admin Dose 400 MG; Start 01/12/17 at 21:00 Carbamazepine (Tegretol Susp) 200 mg QAM GTB Last administered on 01/20/17 08: 19; Admin Dose 200 MG; Start 01/16/17 at 09:00 Trazodone HCl (Desyrel) 150 mg HS PO Last administered on 01/19/17 20:31; Admin Dose 150 MG; Start 01/15/17 at 21:00 Chlordiazepoxide (Librium) 50 mg TID PO Last administered on 01/20/17 08:19; Admin Dose 50 MG; Start 01/17/17 at 13:00 Quetiapine Fumarate 200 mg 200 mg QID NGT Last administered on 01/20/17 08:19 ; Admin Dose 200 MG; Start 01/18/17 at 13:00 Thiamine HCl/ Dextrose (Vitamin B1/D5W) 101 ml @ 202 mls/hr DAILY IV Last administered on 01/20/17 08:20; Admin Dose 202 MLS/HR; Start 01/18/17 at 13:30 Polyethylene Glycol (Miralax) 17 gm DAILY NGT Last administered on 01/20/17 08 :19; Admin Dose 17 GM; Start 01/19/17 at 10:00 Docusate Sodium 100 mg 100 mg BID PRN NGT CONSTIPATION; Start 01/19/17 at 10: 00 Fentanyl (Sublimaze) 100 ml @ 2.5 mls/hr TITRATE IV Last administered on 06:10; Admin Dose 10 MLS/HR; Start 01/19/17 at 13:00 Assessment/Plan Chief Complaint/Hosp Course IMP: 1. Hypoxic respiratory failure/Vent Dependence 2. Acute Lung Injury/ARDS 3. History of drug overdose 4. 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 5. Likely ALEX 6. Anemia 7. Persistent need for propofol concerning for possible pancreatitis elevated triglyceride levels. Differential does include propofol infusion syndrome. RECS: 1. Continue mechanical ventilation. Patient unlikely to be safely liberated from mechanical ventilation, I would recommend tracheostomy and PEG tube placement. 2. Vent--> change to VC+; rate 20; Vt 500; PEEP 7 3. d/c iVF replace potassium. Potassium protocol. 4. TF/Free H20 5. Lasix daily 6. Adjust psych medications. Trial of Librium. Decrease propofol as tolerated. 7. Hypertriglyceridemia. Secondary to propofol, decrease propofol as tolerated. 8. MRI noted. Problems: BRIANNA SAAVEDRA MD, [facility] Jan 20, 2017 12:09
--- NOTE | 2017-01-20 13:21 | PN ---
Date/Time of Note Date/Time of Note DATE: 01/20/17 TIME: 12:58 Assessment/Plan VTE Prophylaxis VTE Prophylaxis Intervention: SCD's Lines/Catheters IV Catheter Type (from Nrsg): PICC Line Central line still needed: Yes (For multiple IV sedating agents/drips) Urinary Cath still in place: Yes Reason Cath still needed: other (indicate) (Intubated) Assessment/Plan Assessment/Plan 46 yo male with: 1. Severe encephalopathy 2ry to drug abuse likely Bath salts and/or synthetic marijuana. No other clear etiology so far of encephalopathic, neurology on board, MRI brain read as within normal, will await final review from neurology. Patient still with episodes of agitation and requiring multiple sedating agents. Reconciliation and titration of her psychiatric medication hopefully we can start de-escalating on the sedation. We will attempt again to titrate sedating agents down, propofol first followed by fentanyl and benzodiazepines last. Continue IV thiamine, also on Haldol scheduled, Librium and Ativan as needed Likely encephalopathy secondary to drug use, cannabinoid synthetics and possibly bath salts. He also does have a history of bipolar disorder but 1/2 sister and girlfriend have confirmed that patient is noncompliant with his outpatient antipsychotics and medications CT head 2 since admission are both wnl, EEG x2 showing encephalopathy as expected while patient was on for sedating agent and paralytics. 2. Acute respiratory Failure 2ry to severe Encephalopathy from Drug overuse, intubated, sedated and paralysed. Patient was briefly extubated last week for 2 -1/2 hours but had to be reintubated due to inability to protect his airway, of note he was still on sedating agents. Also likely aspirated and with aspiration PNA vs pneumonitis. Now with concerns for ARDS or pulmonary status post antibiotic course and diuresis. On Lasix given the chest x-ray findings of pulmonary edema versus ARDS. WBC within normal now and chest x-ray has been better. Still on FiO2 of 30% and PEEP of 7 Still on fentanyl, propofol, Haldol scheduled, Librium and Versed for sedation, and as needed Ativan but hopefully will be able to titrate at least propofol to off. Patient being restarted on Seroquel and Tegretol dosing adjusted to outpatient dosing. Trazodone resumed at night. 3. Bipolar disorder: Likely noncompliant with psychiatric medications. Medication resumed and adjusted to outpatient dosing based on the note from psychiatry 5 days prior to admission that were able to obtain last Wednesday, patient Seroquel can even be titrated higher, according to the notes he was on Seroquel XR, increased to 1000 mg nightly per the latest note. Now on Seroquel to 200 mg QID. Again per the girlfriend it is very likely that the patient was not fully compliant. 4. Right foot Lisfranc fracture: Pain control and ? splint 5. Anemia: Hemoglobin stable at approx 9.0, status post 1 unit pRBC on 01/15. SCDs to lower extremities. On Reglan up to 10 mg IV q6 and proton pump inhibitors. Tolerating tube feedings so far. Patient's 1/2 sister to be called regarding consenting for blood transfusions and procedures. 7. Hypokalemia: Continue to replace potassium as needed, check labs daily especially while patient is on Lasix. Magnesium level wnl. On free water for mild hypernatremia and prerenal azotemia but also being diuresed with increasing dose of Lasix per pulmonary. Prophylaxis: SCDs for DVT prophylaxis, Protonix for GI prophylaxis Disposition: Still in ICU, re-intubated, sedated, trying to weaning off sedation. Family meeting 01/14 did confirm that patient is noncompliant with medication, unfortunately he does have significant behavioral issues including violent behavior. He is a bipolar that seems to be mostly manic most of the time and noncompliant with medications at all. Drug use is an issue. We will try to do our best to have the patient safely extubated soon if not possible he may need tracheostomy and PEG which the 1/2 sister understand and has made does understand that either way she will not be involved in the primary caregiving of patient and he will need to be placed at the time of discharge no matter what his condition is as long as he cannot take care of himself. Subjective 24 Hr Interval Summary Free Text/Dictation Patient still on multiple sedating agents, MRI negative last night, blood pressure stable, afebrile, still significantly encephalopathic requiring large amount of sedating agents despite resuming all his psychiatry medications. Exam/Review of Systems Vital Signs Vitals Vital Signs Date Time Temp Pulse Resp B/P Pulse Ox O2 Delivery O2 Flow Rate FiO2 01/20/17 10:49 106 30 97 30 01/20/17 08:00 98.6 95/65 Mechanical Ventilator Intake and Output 01/19/17 01/19/17 01/20/17 15:00 23:00 07:00 Intake Total 898.59 ml 879.96 ml 948.44 ml Output Total 210 ml 745 ml 630 ml Balance 688.59 ml 134.96 ml 318.44 ml Exam Constitutional: obese, other (Intubated, on multiple sedating agents.) Respiratory: clear to auscultation, other (On mechanical ventilation) Cardiovascular: nl pulses, regular rate and rhythm Gastrointestinal: non-tender, other (Tolerating tube feedings so far), soft Musculoskeletal: nl extremities to inspection, other (No edema, clubbing or cyanosis) Extremities: normal pulses Neurological: other (Intubated, still with sedating agent on board but agitated ) Results Result Diagram: 01/20/171 01/20/17 0441 Results 24 hrs Laboratory Tests Test 01/20/17 04:41 White Blood Count 7.9 # Red Blood Count 3.40 L Hemoglobin 9.7 L Hematocrit 30.0 L Mean Corpuscular Volume 88.2 Mean Corpuscular Hemoglobin 28.5 L Mean Corpuscular Hemoglobin Concent 32.3 Red Cell Distribution Width 13.9 Platelet Count 330 Mean Platelet Volume 10.8 H Neutrophils % 67.6 Lymphocytes % 13.0 L Monocytes % 10.2 Eosinophils % 7.3 H Basophils % 0.8 Nucleated Red Blood Cells % 0.0 Neutrophils # 5.3 Lymphocytes # 1.0 Monocytes # 0.8 Eosinophils # 0.6 H Basophils # 0.1 Nucleated Red Blood Cells # 0.0 Sodium Level 142 Potassium Level 3.6 Chloride Level 104 Carbon Dioxide Level 28 Anion Gap 14 Blood Urea Nitrogen 11 Creatinine 0.65 Glucose Level 101 Calcium Level 8.6 Phosphorus Level 4.9 Magnesium Level 1.8 Total Bilirubin 0.1 L Direct Bilirubin 0.00 Indirect Bilirubin 0.1 Aspartate Amino Transf (AST/SGOT) 31 Alanine Aminotransferase (ALT/SGPT) 50 Alkaline Phosphatase 210 H Total Protein 6.8 Albumin 3.1 L Globulin 3.70 H Albumin/Globulin Ratio 0.83 Triglycerides Level 986 H Cholesterol Level 299 H LDL Cholesterol, Calculated 80 HDL Cholesterol 22 L Cholesterol/HDL Ratio 13.5 Imaging Free Text/Dictation PROCEDURE: MR Brain without contrast. CLINICAL INDICATION: Acute encephalopathy. TECHNIQUE: An MRI of the brain was performed on a GE short bore high- definition 1.5 luz scanner utilizing the following sequences: Sagittal and axial T1 weighted, axial T2 weighted, coronal GRE, axial diffusion weighted with ADC mapping, and axial FLAIR. COMPARISON: None FINDINGS: No diffusion weighted abnormalities are seen to suggest the presence of acute ischemia or recent infarct. No hypointense signal abnormalities are seen on the GRE images to suggest the presence of blood degradation products. There is no evidence of intracranial hemorrhage, mass effect, or midline shift. No extra- axial fluid collections are seen. The ventricles and sulci are normal in size and configuration. The signal intensity is normal throughout the cerebrum, brainstem, and cerebellum. Normal flow voids are visible in the proximal intracranial arteries and dural sinuses, indicating patency. The sellar, parasellar regions are normal. There is mucosal thickening in the frontal, ethmoid, sphenoid and maxillary sinuses, greater on the left. there is deformity of the left papyracea. Fluid is present in nasal cavity, pharynx, bilateral mastoid air cells and middle ear cavities. IMPRESSION: No evidence of acute ischemia or encephalitis. Pansinusitis. Bilateral mastoid effusions and middle ear disease. Physician Genie Date Time Electronically viewed and signed by Physician Genie on 01/20/2017 07: 27 Medications Medications Current Medications Acetaminophen (Tylenol Tab) 650 mg Q4H PRN PO pain/fever Last administered on 01/11/17t 07:46; Admin Dose 650 MG; Start 12/31/16 at 01:00 Hydralazine HCl (Apresoline) 25 mg Q6H PRN PO sbp>160; Start 12/31/16 at 01:00 Enalaprilat (Vasotec Iv) 1.25 mg Q6H PRN IV sbp>160; Start 12/31/16 at 01:00 Ondansetron HCl (Zofran Inj) 4 mg Q4H PRN IV nausea; Start 12/31/16 at 01:00 Hydralazine HCl 10 mg 10 mg Q4H PRN IV ELEVATED SYSTOLIC BP Last administered on 01/13/17 16:25; Admin Dose 10 MG; Start 12/31/16 at 05:30 Midazolam HCl 50 ml @ 1 mls/hr TITRATE IV Last administered on 01/20/17 04:58 ; Admin Dose 10 MLS/HR; Start 12/31/16 at 16:30 Vecuronium [place]/Dextrose (Vecuronium [place]/D5W) 100 ml @ 6.03 mls/hr TITRATE IV Last administered on 01/03/17 04:07; Admin Dose 6.03 MLS/HR; Start 01/01/17 at 06:00 Labetalol HCl (Labetalol) 10 mg Q4H PRN IV SBP GREATER THAN 160 Last administered on 01/10/17 22:33; Admin Dose 10 MG; Start 01/01/17 at 12:00 IV Flush (NS 10 ml) 10 ml PRN PRN IV IV PROTOCOL; Start 01/02/17 at 17:00 Lorazepam (Ativan) 2 mg Q2H PRN IV PRN Agitation. Last administered on 03:40; Admin Dose 2 MG; Start 01/04/17 at 09:00 Pantoprazole 40 mg 40 mg BID@06,18 IV Last administered on 01/20/17 05:31; Admin Dose 40 MG; Start 01/06/17 at 09:30 Propofol (Diprivan) 100 ml @ 3.537 mls/ hr Q12H IV Last administered on 09:38; Admin Dose 14.148 MLS/HR; Start 01/10/17 at 09:30 Metoclopramide HCl (Reglan) 10 mg Q6 IV Last administered on 01/20/17 12:44; Admin Dose 10 MG; Start 01/11/17 at 12:00 Valproate Sodium (Depakene Liquid Cup) 500 mg QHS NGT Last administered on 20:31; Admin Dose 500 MG; Start 01/11/17 at 21:00 Haloperidol (Haldol) 5 mg Q6 IV Last administered on 01/20/17 12:44; Admin Dose 5 MG; Start 01/12/17 at 12:00 Carbamazepine (Tegretol Susp) 400 mg QHS NGT Last administered on 01/20/17 00: 45; Admin Dose 400 MG; Start 01/12/17 at 21:00 Carbamazepine (Tegretol Susp) 200 mg QAM GTB Last administered on 01/20/17 08: 19; Admin Dose 200 MG; Start 01/16/17 at 09:00 Trazodone HCl (Desyrel) 150 mg HS PO Last administered on 01/19/17 20:31; Admin Dose 150 MG; Start 01/15/17 at 21:00 Chlordiazepoxide (Librium) 50 mg TID PO Last administered on 01/20/17 12:15; Admin Dose 50 MG; Start 01/17/17 at 13:00 Quetiapine Fumarate 200 mg 200 mg QID NGT Last administered on 01/20/17 12:15 ; Admin Dose 200 MG; Start 01/18/17 at 13:00 Thiamine HCl/ Dextrose (Vitamin B1/D5W) 101 ml @ 202 mls/hr DAILY IV Last administered on 01/20/17 08:20; Admin Dose 202 MLS/HR; Start 01/18/17 at 13:30 Polyethylene Glycol (Miralax) 17 gm DAILY NGT Last administered on 01/20/17 08 :19; Admin Dose 17 GM; Start 01/19/17 at 10:00 Docusate Sodium 100 mg 100 mg BID PRN NGT CONSTIPATION; Start 01/19/17 at 10: 00 Fentanyl (Sublimaze) 100 ml @ 2.5 mls/hr TITRATE IV Last administered on 06:10; Admin Dose 10 MLS/HR; Start 01/19/17 at 13:00 Procedures Procedures DATE OF PROCEDURE: 01/18/2017 HISTORY: This is a 46-year-old male who was admitted with altered and progressed to respiratory failure. He has a history of drug use and bipolar disorder and also had an episode of hypoxemia. A previous EEG showed severe encephalopathy. This is a repeat EEG. CURRENT MEDICATIONS: 1. Fentanyl. 2. Librium 3. Tegretol. 4. Depakene. 5. Haldol. PROCEDURE: Utilizing a 16-channel EEG machine, cap scalp electrodes were applied in accordance with International 10-20 system. [id number] and scalp -to-ear montages were displayed. Electrical impedances were measured and reported. DESCRIPTION: During the resting state, a posterior dominant rhythm of about 4- 5 Hz low amplitude waves were seen bihemispherically. Photic stimulation had no response. Hyperventilation was not performed. There was no focal lateralizing or epileptiform discharge identified. INTERPRETATION: This is an abnormal EEG due to presence of generalized bihemispheric background slowing without epileptiform activity, consistent with encephalopathy without epileptiform activity. Please correlate these findings with the patient's clinical picture. Dictated By: TRENT COHEN MD Jan 20, 2017 13:14
[2017-01-20] MEDS ORDERED: MAGNESIUM SULFATE 2 GM/50 ML 50 ML IVPB ONE (13:30)
[2017-01-20] MEDS ORDERED: POTASSIUM CHLORIDE 20 MEQ POWDER FOR ORAL SOLN NGT ONE (13:30)
[2017-01-20 17:04] LABS: ADD UMIC NO; UR ASCORBIC ACID 40 mg/dL (NEGATIVE); UR BILIRUBIN (Dip) NEGATIVE (NEGATIVE); UR BLOOD (Dip) NEGATIVE (NEGATIVE); UR CLARITY CLEAR (CLEAR); UR COLOR YELLOW (YELLOW); UR GLUCOSE (Dip) NEGATIVE (NEGATIVE); UR KETONES (Dip) TRACE mg/dL (NEGATIVE); UR LEUKOCYTE ESTERASE (Dip) NEGATIVE Leu/ul (NEGATIVE); UR NITRITE (Dip) NEGATIVE (NEGATIVE); UR SPECIFIC GRAVITY (Dip) 1.023 (1.003-1.030); UR TOTAL PROTEIN (Dip) NEGATIVE (NEGATIVE); UR UROBILINOGEN (Dip) NEGATIVE (NEGATIVE)
[2017-01-20] MEDS: traZODone 100 MG TAB PO SCH (20:08)
[2017-01-20] MEDS: VALPROIC ACID LIQUID CUP 250 MG/5 ML CUP NGT SCH (20:08)
[2017-01-21] VITALS (36 sets, daily range): BP systolic 101–168; BP diastolic 65–123; PULSE 91–126; RESP 15–37
[2017-01-21] MEDS: ALBUTEROL 18 GM INHALER INH SCH ×4 (01:15→20:13)
[2017-01-21] MEDS: IPRATROPIUM (HFA) 12.9 GM INHALER INH SCH ×4 (01:15→20:13)
[2017-01-21] MEDS: LORAZEPAM 2 MG INJ IV PRN ×8 (01:32→23:13)
[2017-01-21] MEDS: MIDAZOLAM (DRIP) 50 mg/50 mL 50 ML IV SCH ×4 (02:07→18:45)
[2017-01-21] MEDS: FENTAnyl (DRIP) 1000 mcg/100mL 100 ML IV SCH ×3 (02:08→21:58)
[2017-01-21] MEDS: PROPOFOL 100 ML IV SCH ×5 (02:59→23:09)
[2017-01-21 05:10] LABS: BASOPHIL # 0.1 10^3/ul (0.0-0.1); BASOPHILS % 1.2 % (0.0-2.0); EOSINOPHILS # 0.5 10^3/ul (0.0-0.5); EOSINOPHILS % 5.9 % (0.0-7.0); HEMATOCRIT 34.7 % (42.0-52.0); HEMOGLOBIN 10.8 g/dl (14.0-18.0); LYMPHOCYTES # 1.3 10^3/ul (0.8-2.9); LYMPHOCYTES % 15.2 % (15.0-51.0); MEAN CORPUSCULAR HEMOGLOBIN 27.7 pg (29.0-33.0); MEAN CORPUSCULAR HGB CONC 31.1 g/dl (32.0-37.0); MEAN PLATELET VOLUME 11.5 fl (7.4-10.4); MONOCYTES % 12.4 % (0.0-11.0); NEUTROPHIL # 5.4 10^3/ul (1.6-7.5); NEUTROPHILS % 64.6 % (39.0-77.0); PLATELET COUNT 331 10^3/UL (140-415); RED CELL DISTRIBUTION WIDTH 14.1 % (11.5-14.5); WHITE BLOOD COUNT 8.3 10^3/ul (4.8-10.8)
[2017-01-21 05:26] LABS: CALCIUM 8.9 mg/dl (8.4-10.2); CREATININE 0.69 mg/dl (0.61-1.24); MAGNESIUM 2.1 mg/dl (1.7-2.5); PHOSPHORUS 4.7 mg/dl (2.5-4.9); POTASSIUM 4.2 mmol/L (3.5-5.1)
[2017-01-21] MEDS: METOCLOPRAMIDE 10 MG INJ IV SCH ×3 (05:35→17:47)
[2017-01-21] MEDS: PANTOPRAZOLE 40 MG INJ IV SCH ×2 (05:35→17:47)
[2017-01-21] MEDS: HALOPERIDOL 5 MG INJ IV SCH ×3 (05:35→17:47)
--- NOTE | 2017-01-21 07:16 | RADRPT ---
PROCEDURE: XR Chest. CLINICAL INDICATION: Pneumonia TECHNIQUE: A single AP view of the chest was obtained. COMPARISON: Chest x-ray dated 01/17/2017 FINDINGS: The endotracheal tube tip is approximately 5.0 cm above the villa. The tip of the enteric tube ex tends below the left diaphragm. There is a right upper extremity PICC line with tip the mid SVC. Lung volumes are low with compressive changes and crowding of the central pulmonary vascular marking s with left basilar atelectasis . No focal airspace opacity, pleural effusion or pneumothorax is see n. The cardiomediastinal silhouette is within normal limits for size. The osseous structures are u nremarkable. IMPRESSION: 1. Low lung volumes with compressive changes and left basilar atelectasis. No significant interval change. 2. Tubes and lines, as described above. RPTAT: HH .Verona Nichole MD, MD Date Time Electronically viewed and signed by .Verona Nichole MD, on 01/21/2017 07:16 .G/
[2017-01-21 07:59] LABS: AADO2 Arterial 66.2 mmHg (7.0-24.0); Allen Test ACCEPTAB; Arterial Base Excess 0.5 mmol/L (-3.0-3); Arterial COHb 0.3 % (0.0-3.0); Arterial Fraction of Oxyhgb 97.1 % (93.0-99.0); Arterial HCO3 24.5 mmol/L (22.0-26.0); Arterial MetHb 0.4 % (0.0-1.5); Arterial Total Hemglobin 11.9 g/dl (12.0-18.0); MODE VENT - AC
[2017-01-21] MEDS: carBAMAZEpine SUSP 100 MG/5 ML GTB SCH (09:11)
[2017-01-21] MEDS: QUETIAPINE 100 MG TAB NGT SCH ×4 (09:11→21:00)
[2017-01-21] MEDS: THIAMINE IV SCH (09:11)
[2017-01-21] MEDS: DEXTROSE 5% IV SCH (09:11)
[2017-01-21] MEDS: POLYETHYLENE GLYCOL 17 GM PACKET NGT SCH (09:11)
[2017-01-21] MEDS: CHLORDIAZEPOXIDE 25 MG CAP PO SCH ×3 (09:16→20:59)
--- NOTE | 2017-01-21 11:12 | CONS ---
Date/Time of Note Date/Time of Note DATE: 01/21/17 TIME: 11:11 Consult Date/Type/Reason Admit Date/Time Dec 31, 2016 at 00:30 Initial Consult Date 12/31/16 Type of Consultation: Pulm Ordering Provider: JEAN MARIE BRAGG MD Subjective Patient still has significant agitation off propofol. Still requiring multiple sedatives. Urine is nonbloody likely secondary to trauma from Lewis catheter. Objective Vital Signs Date Time Temp Pulse Resp B/P Pulse Ox O2 Delivery O2 Flow Rate FiO2 01/21/17 09:10 117 29 97 30 01/21/17 06:00 161/83 01/21/17 04:00 99.0 01/20/17 18:00 Mechanical Ventilator Intake and Output 01/20/17 01/20/17 01/21/17 15:00 23:00 07:00 Intake Total 820.155 ml 544.764 ml 863.54 ml Output Total 470 ml 620 ml 585 ml Balance 350.155 ml -75.236 ml 278.54 ml Exam GENERAL: Well-nourished well-developed gentleman orally intubated on mechanical ventilation VITAL SIGNS: see below. HEENT: Pupils equal, round, and reactive to light. CARDIAC: S1, S2, 1/6 systolic ejection murmur CHEST: Diminished air entry bilaterally. ABDOMEN: Mildly distended. Bowel sounds present no guarding or rebound EXTREMITIES: No cyanosis, clubbing edema +1 NEUROLOGIC: Generalized weakness Results/Medications Result Diagram: 01/21/17 0438 01/21/17 0438 Results 24 hrs Laboratory Tests Test 01/20/17 13:00 01/21/17 04:38 01/21/17 07:00 Urine Color YELLOW Urine Clarity CLEAR Urine pH 5.0 Urine Specific [place] 1.023 Urine Ketones TRACE A Urine Nitrite NEGATIVE Urine Bilirubin NEGATIVE Urine Urobilinogen NEGATIVE Urine Leukocyte Esterase NEGATIVE Urine Hemoglobin NEGATIVE Urine Glucose NEGATIVE Urine Total Protein NEGATIVE White Blood Count 8.3 Red Blood Count 3.90 L Hemoglobin 10.8 L Hematocrit 34.7 L Mean Corpuscular Volume 89.0 Mean Corpuscular Hemoglobin 27.7 L Mean Corpuscular Hemoglobin Concent 31.1 L Red Cell Distribution Width 14.1 Platelet Count 331 Mean Platelet Volume 11.5 H Neutrophils % 64.6 Lymphocytes % 15.2 Monocytes % 12.4 H Eosinophils % 5.9 Basophils % 1.2 Nucleated Red Blood Cells % 0.0 Neutrophils # 5.4 Lymphocytes # 1.3 Monocytes # 1.0 H Eosinophils # 0.5 Basophils # 0.1 Nucleated Red Blood Cells # 0.0 Sodium Level 144 Potassium Level 4.2 Chloride Level 103 Carbon Dioxide Level 25 Anion Gap 20 H Blood Urea Nitrogen 8 Creatinine 0.69 Glucose Level 108 Calcium Level 8.9 Phosphorus Level 4.7 Magnesium Level 2.1 Blood Gas Specimen Source Blood arterial Arterial Blood Date Drawn 01/21/2017 7:30:35 AM Arterial Blood pH (Temp corrected) 7.438 Arterial Blood pCO2 (Temp correct) 37.1 Arterial Blood pO2 (Temp corrected) 104.1 H Arterial Blood HCO3 24.5 Arterial Blood Base Excess 0.5 Arterial Blood Oxygen Saturation 97.8 [place] Test ACCEPTAB Arterial Blood Gas Puncture Site Right Radial Arterial Blood Carboxyhemoglobin 0.3 Arterial Blood Methemoglobin 0.4 Blood Gas A-a O2 Differential 66.2 H Oxyhemoglobin Percent 97.1 Total Hemoglobin 11.9 L Blood Gas Temperature 37.0 Blood Gas Respiration Rate 20.0 Blood Gas Actual Respiration Rate 37 Blood Gas Modality VENT - AC FiO2 30.0 Blood Gas Tidal Volume 500.0 Blood Gas Low PEEP Setting 5.0 Blood Gas Notified Whom JLD Blood Gas Notified Time 01/21/2017 7:59:18 AM Medications Current Medications Acetaminophen (Tylenol Tab) 650 mg Q4H PRN PO pain/fever Last administered on 01/11/17 07:46; Admin Dose 650 MG; Start 12/31/16 at 01:00 Hydralazine HCl (Apresoline) 25 mg Q6H PRN PO sbp>160; Start 12/31/16 at 01:00 Enalaprilat (Vasotec Iv) 1.25 mg Q6H PRN IV sbp>160; Start 12/31/16 at 01:00 Ondansetron HCl (Zofran Inj) 4 mg Q4H PRN IV nausea; Start 12/31/16 at 01:00 Hydralazine HCl 10 mg 10 mg Q4H PRN IV ELEVATED SYSTOLIC BP Last administered on 01/13/17 16:25; Admin Dose 10 MG; Start 12/31/16 at 05:30 Midazolam HCl 50 ml @ 1 mls/hr TITRATE IV Last administered on 01/21/17 07:55 ; Admin Dose 10 MLS/HR; Start 12/31/16 at 16:30 Vecuronium [place]/Dextrose (Vecuronium [place]/D5W) 100 ml @ 6.03 mls/hr TITRATE IV Last administered on 01/03/17 04:07; Admin Dose 6.03 MLS/HR; Start 01/01/17 at 06:00 Labetalol HCl (Labetalol) 10 mg Q4H PRN IV SBP GREATER THAN 160 Last administered on 01/10/17 22:33; Admin Dose 10 MG; Start 01/01/17 at 12:00 IV Flush (NS 10 ml) 10 ml PRN PRN IV IV PROTOCOL; Start 01/02/17 at 17:00 Lorazepam (Ativan) 2 mg Q2H PRN IV PRN Agitation. Last administered on 09:48; Admin Dose 2 MG; Start 01/04/17 at 09:00 Pantoprazole 40 mg 40 mg BID@06,18 IV Last administered on 01/21/17 05:35; Admin Dose 40 MG; Start 01/06/17 at 09:30 Propofol (Diprivan) 100 ml @ 3.537 mls/ hr Q12H IV Last administered on 06:34; Admin Dose 21.222 MLS/HR; Start 01/10/17 at 09:30 Metoclopramide HCl (Reglan) 10 mg Q6 IV Last administered on 01/21/17 05:35; Admin Dose 10 MG; Start 01/11/17 at 12:00 Valproate Sodium (Depakene Liquid Cup) 500 mg QHS NGT Last administered on 01/20 20:08; Admin Dose 500 MG; Start 01/11/17 at 21:00 Haloperidol (Haldol) 5 mg Q6 IV Last administered on 01/21/17 05:35; Admin Dose 5 MG; Start 01/12/17 at 12:00 Carbamazepine (Tegretol Susp) 400 mg QHS NGT Last administered on 01/20/17 20: 08; Admin Dose 400 MG; Start 01/12/17 at 21:00 Carbamazepine (Tegretol Susp) 200 mg QAM GTB Last administered on 01/21/17 09: 11; Admin Dose 200 MG; Start 01/16/17 at 09:00 Trazodone HCl (Desyrel) 150 mg HS PO Last administered on 01/20/17 20:08; Admin Dose 150 MG; Start 01/15/17 at 21:00 Chlordiazepoxide (Librium) 50 mg TID PO Last administered on 01/21/17 09:16; Admin Dose 50 MG; Start 01/17/17 at 13:00 Quetiapine Fumarate 200 mg 200 mg QID NGT Last administered on 01/21/17 09:11 ; Admin Dose 200 MG; Start 01/18/17 at 13:00 Thiamine HCl/ Dextrose (Vitamin B1/D5W) 101 ml @ 202 mls/hr DAILY IV Last administered on 01/21/17 09:11; Admin Dose 202 MLS/HR; Start 01/18/17 at 13:30 Polyethylene Glycol (Miralax) 17 gm DAILY NGT Last administered on 01/21/17 09 :11; Admin Dose 17 GM; Start 01/19/17 at 10:00 Docusate Sodium 100 mg 100 mg BID PRN NGT CONSTIPATION; Start 01/19/17 at 10: 00 Fentanyl (Sublimaze) 100 ml @ 2.5 mls/hr TITRATE IV Last administered on 02:08; Admin Dose 10 MLS/HR; Start 01/19/17 at 13:00 Assessment/Plan Chief Complaint/Hosp Course IMP: 1. Hypoxic respiratory failure/Vent Dependence 2. Acute Lung Injury/ARDS 3. History of drug overdose 4. 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 5. Likely ALEX 6. Anemia 7. Persistent need for propofol concerning for possible pancreatitis elevated triglyceride levels. Differential does include propofol infusion syndrome. RECS: 1. Continue mechanical ventilation. Patient unlikely to be safely liberated from mechanical ventilation, I would recommend tracheostomy and PEG tube placement. 2. Vent--> change to VC+; rate 20; Vt 500; PEEP 7 3. d/c iVF replace potassium. Potassium protocol. 4. TF/Free H20 5. Lasix daily 6. Adjust psych medications. Decrease propofol if tolerated. 7. Hypertriglyceridemia. Secondary to propofol, as above. 8. MRI noted. Problems: BRIANNA SAAVEDRA MD, [facility] Jan 21, 2017 11:12
--- NOTE | 2017-01-21 11:13 | PN ---
Date/Time of Note Date/Time of Note DATE: 01/21/17 TIME: 10:52 Assessment/Plan VTE Prophylaxis VTE Prophylaxis Intervention: SCD's Lines/Catheters IV Catheter Type (from Nrs): PICC Line Central line still needed: Yes (Multiple sedating drips) Urinary Cath still in place: Yes Reason Cath still needed: other (indicate) Assessment/Plan Assessment/Plan 46 yo male with: 1. Severe encephalopathy 2ry to drug abuse likely Bath salts and/or synthetic marijuana. No other clear etiology so far of encephalopathic, neurology on board, MRI brain read as within normal, will await final review from neurology. Patient still with episodes of agitation and requiring multiple sedating agents. Reconciliation and titration of her psychiatric medications have been done, so far still unable to successfully de-escalate on the sedation. We will attempt again to titrate sedating agents down, propofol first followed by fentanyl and benzodiazepines last. For now we will see if we can switch to Ativan drip from Versed drip and get the patient off propofol hopefully fentanyl also. Continue IV thiamine, also on Haldol scheduled, Librium and Ativan as needed Likely encephalopathy secondary to drug use, cannabinoid synthetics and possibly bath salts. He also does have a history of bipolar disorder but 1/2 sister and girlfriend have confirmed that patient is noncompliant with his outpatient antipsychotics and medications CT head 2 since admission are both wnl, EEG x2 showing encephalopathy but patient also has been on sedating agents, MRI brain wnl. 2. Acute respiratory Failure 2ry to severe Encephalopathy from Drug overuse, intubated, sedated and paralysed. Patient was briefly extubated last week for 2 -1/2 hours but had to be reintubated due to inability to protect his airway, of note he was still on sedating agents. WBC within normal now and chest x-ray has been better but with compressive atelectasis. Still on FiO2 of 30% and PEEP of 7. Still on fentanyl, propofol, Haldol scheduled, Librium and Versed for sedation, and as needed Ativan but hopefully will be able to titrate at least propofol to off if we able to switch to Ativan drip. Patient being restarted on Seroquel and Tegretol dosing adjusted to outpatient dosing. Trazodone resumed at night. 3. Bipolar disorder: Likely noncompliant with psychiatric medications. Medication resumed and adjusted to outpatient dosing based on the note from psychiatry 5 days prior to admission that were able to obtain last Wednesday, patient Seroquel can even be titrated higher, according to the notes he was on Seroquel XR, increased to 1000 mg nightly per the latest note. Now on Seroquel to 200 mg QID. Again per the girlfriend it is very likely that the patient was not fully compliant. 4. Right foot Lisfranc fracture: Pain control and ? splint 5. Anemia: Hemoglobin stable at approx 10, status post 1 unit pRBC on 01/15. SCDs to lower extremities. On Reglan up to 10 mg IV q6 and proton pump inhibitors. Tolerating tube feedings so far. Patient's 1/2 sister to be called regarding consenting for blood transfusions and procedures. 7. Hypokalemia: Continue to replace potassium as needed, check labs daily especially while patient is on Lasix. Magnesium level wnl. On free water for mild hypernatremia and prerenal azotemia but also being diuresed with increasing dose of Lasix per pulmonary. Prophylaxis: SCDs for DVT prophylaxis, Protonix for GI prophylaxis Disposition: Still in ICU, re-intubated, sedated, trying to weaning off sedation. Family meeting 01/14 did confirm that patient is noncompliant with medication, unfortunately he does have significant behavioral issues including violent behavior. He is a bipolar that seems to be mostly manic most of the time and noncompliant with medications at all. Drug use is an issue. We will try to do our best to have the patient safely extubated soon if not possible he may need tracheostomy and PEG which the 1/2 sister understand and has made does understand that either way she will not be involved in the primary caregiving of patient and he will need to be placed at the time of discharge no matter what his condition is as long as he cannot take care of himself. Subjective 24 Hr Interval Summary Free Text/Dictation Patient still with agitation issues, also noted to have hematuria likely from Lewis trauma. Still very agitated, pulling on the Lewis when attempting to titrate propofol off. Otherwise hemodynamically stable. Exam/Review of Systems Vital Signs Vitals Vital Signs Date Time Temp Pulse Resp B/P Pulse Ox O2 Delivery O2 Flow Rate FiO2 01/21/17 09:10 117 29 97 30 11/2/17 06:00 161/83 01/21/17 04:00 99.0 01/20/17 18:00 Mechanical Ventilator Intake and Output 01/20/17 01/20/17 01/21/17 15:00 23:00 07:00 Intake Total 820.155 ml 544.764 ml 863.54 ml Output Total 470 ml 620 ml 585 ml Balance 350.155 ml -75.236 ml 278.54 ml Exam Constitutional: alert, obese, oriented, well developed Respiratory: diminished breath sounds (Bases bilaterally), other (On mechanical ventilation) Cardiovascular: nl pulses, regular rate and rhythm Gastrointestinal: non-tender, soft Genitourinary - Male: other (Hematuria noted) Musculoskeletal: nl extremities to inspection Extremities: normal pulses, other (No edema, clubbing or cyanosis) Neurological: other (Moving all 4 extremities, still remains agitated with decreased sedating agents,) Results Result Diagram: 01/21/17 0438 01/21/17 0438 Results 24 hrs Laboratory Tests Test 01/20/17 13:00 01/21/17 04:38 01/21/17 07:00 Urine Color YELLOW Urine Clarity CLEAR Urine pH 5.0 Urine Specific [place] 1.023 Urine Ketones TRACE A Urine Nitrite NEGATIVE Urine Bilirubin NEGATIVE Urine Urobilinogen NEGATIVE Urine Leukocyte Esterase NEGATIVE Urine Hemoglobin NEGATIVE Urine Glucose NEGATIVE Urine Total Protein NEGATIVE White Blood Count 8.3 Red Blood Count 3.90 L Hemoglobin 10.8 L Hematocrit 34.7 L Mean Corpuscular Volume 89.0 Mean Corpuscular Hemoglobin 27.7 L Mean Corpuscular Hemoglobin Concent 31.1 L Red Cell Distribution Width 14.1 Platelet Count 331 Mean Platelet Volume 11.5 H Neutrophils % 64.6 Lymphocytes % 15.2 Monocytes % 12.4 H Eosinophils % 5.9 Basophils % 1.2 Nucleated Red Blood Cells % 0.0 Neutrophils # 5.4 Lymphocytes # 1.3 Monocytes # 1.0 H Eosinophils # 0.5 Basophils # 0.1 Nucleated Red Blood Cells # 0.0 Sodium Level 144 Potassium Level 4.2 Chloride Level 103 Carbon Dioxide Level 25 Anion Gap 20 H Blood Urea Nitrogen 8 Creatinine 0.69 Glucose Level 108 Calcium Level 8.9 Phosphorus Level 4.7 Magnesium Level 2.1 Blood Gas Specimen Source Blood arterial Arterial Blood Date Drawn 01/21/2017 7:30:35 AM Arterial Blood pH (Temp corrected) 7.438 Arterial Blood pCO2 (Temp correct) 37.1 Arterial Blood pO2 (Temp corrected) 104.1 H Arterial Blood HCO3 24.5 Arterial Blood Base Excess 0.5 Arterial Blood Oxygen Saturation 97.8 [place] Test ACCEPTAB Arterial Blood Gas Puncture Site Right Radial Arterial Blood Carboxyhemoglobin 0.3 Arterial Blood Methemoglobin 0.4 Blood Gas A-a O2 Differential 66.2 H Oxyhemoglobin Percent 97.1 Total Hemoglobin 11.9 L Blood Gas Temperature 37.0 Blood Gas Respiration Rate 20.0 Blood Gas Actual Respiration Rate 37 Blood Gas Modality VENT - AC FiO2 30.0 Blood Gas Tidal Volume 500.0 Blood Gas Low PEEP Setting 5.0 Blood Gas Notified Whom JLD Blood Gas Notified Time 01/21/2017 7:59:18 AM Imaging Free Text/Dictation PROCEDURE: XR Chest. CLINICAL INDICATION: Pneumonia TECHNIQUE: A single AP view of the chest was obtained. COMPARISON: Chest x-ray dated 01/17/2017 FINDINGS: The endotracheal tube tip is approximately 5.0 cm above the villa. The tip of the enteric tube extends below the left diaphragm. There is a right upper extremity PICC line with tip the mid SVC. Lung volumes are low with compressive changes and crowding of the central pulmonary vascular markings with left basilar atelectasis . No focal airspace opacity, pleural effusion or pneumothorax is seen. The cardiomediastinal silhouette is within normal limits for size. The osseous structures are unremarkable. IMPRESSION: 1. Low lung volumes with compressive changes and left basilar atelectasis. No significant interval change. 2. Tubes and lines, as described above. RPTAT: HH .Verona Nichole MD, MD Date Time Electronically viewed and signed by .Verona Nichole MD, on 01/21/2017 07 :16 .G/ Medications Medications Current Medications Acetaminophen (Tylenol Tab) 650 mg Q4H PRN PO pain/fever Last administered on 01/11/17t 07:46; Admin Dose 650 MG; Start 12/31/16 at 01:00 Hydralazine HCl (Apresoline) 25 mg Q6H PRN PO sbp>160; Start 12/31/16 at 01:00 Enalaprilat (Vasotec Iv) 1.25 mg Q6H PRN IV sbp>160; Start 12/31/16 at 01:00 Ondansetron HCl (Zofran Inj) 4 mg Q4H PRN IV nausea; Start 12/31/16 at 01:00 Hydralazine HCl 10 mg 10 mg Q4H PRN IV ELEVATED SYSTOLIC BP Last administered on 01/13/17 16:25; Admin Dose 10 MG; Start 12/31/16 at 05:30 Midazolam HCl 50 ml @ 1 mls/hr TITRATE IV Last administered on 01/21/17 07:55 ; Admin Dose 10 MLS/HR; Start 12/31/16 at 16:30 Vecuronium [place]/Dextrose (Vecuronium [place]/D5W) 100 ml @ 6.03 mls/hr TITRATE IV Last administered on 01/03/17 04:07; Admin Dose 6.03 MLS/HR; Start 01/01/17 at 06:00 Labetalol HCl (Labetalol) 10 mg Q4H PRN IV SBP GREATER THAN 160 Last administered on 01/10/17 22:33; Admin Dose 10 MG; Start 01/01/17 at 12:00 IV Flush (NS 10 ml) 10 ml PRN PRN IV IV PROTOCOL; Start 01/02/17 at 17:00 Lorazepam (Ativan) 2 mg Q2H PRN IV PRN Agitation. Last administered on 09:48; Admin Dose 2 MG; Start 01/04/17 at 09:00 Pantoprazole 40 mg 40 mg BID@06,18 IV Last administered on 01/21/17 05:35; Admin Dose 40 MG; Start 01/06/17 at 09:30 Propofol (Diprivan) 100 ml @ 3.537 mls/ hr Q12H IV Last administered on 06:34; Admin Dose 21.222 MLS/HR; Start 01/10/17 at 09:30 Metoclopramide HCl (Reglan) 10 mg Q6 IV Last administered on 01/21/17 05:35; Admin Dose 10 MG; Start 01/11/17 at 12:00 Valproate Sodium (Depakene Liquid Cup) 500 mg QHS NGT Last administered on 01/20 20:08; Admin Dose 500 MG; Start 01/11/17 at 21:00 Haloperidol (Haldol) 5 mg Q6 IV Last administered on 01/21/17 05:35; Admin Dose 5 MG; Start 01/12/17 at 12:00 Carbamazepine (Tegretol Susp) 400 mg QHS NGT Last administered on 01/20/17 20: 08; Admin Dose 400 MG; Start 01/12/17 at 21:00 Carbamazepine (Tegretol Susp) 200 mg QAM GTB Last administered on 01/21/17 09: 11; Admin Dose 200 MG; Start 01/16/17 at 09:00 Trazodone HCl (Desyrel) 150 mg HS PO Last administered on 01/20/17 20:08; Admin Dose 150 MG; Start 01/15/17 at 21:00 Chlordiazepoxide (Librium) 50 mg TID PO Last administered on 01/21/17 09:16; Admin Dose 50 MG; Start 01/17/17 at 13:00 Quetiapine Fumarate 200 mg 200 mg QID NGT Last administered on 01/21/17 09:11 ; Admin Dose 200 MG; Start 01/18/17 at 13:00 Thiamine HCl/ Dextrose (Vitamin B1/D5W) 101 ml @ 202 mls/hr DAILY IV Last administered on 01/21/17 09:11; Admin Dose 202 MLS/HR; Start 01/18/17 at 13:30 Polyethylene Glycol (Miralax) 17 gm DAILY NGT Last administered on 01/21/17 09 :11; Admin Dose 17 GM; Start 01/19/17 at 10:00 Docusate Sodium 100 mg 100 mg BID PRN NGT CONSTIPATION; Start 01/19/17 at 10: 00 Fentanyl (Sublimaze) 100 ml @ 2.5 mls/hr TITRATE IV Last administered on 02:08; Admin Dose 10 MLS/HR; Start 01/19/17 at 13:00 TRENT NEWMAN Jan 21, 2017 11:13
[2017-01-21] MEDS: VALPROIC ACID LIQUID CUP 250 MG/5 ML CUP NGT SCH (20:59)
[2017-01-21] MEDS: traZODone 100 MG TAB PO SCH (21:00)
[2017-01-21] MEDS: carBAMAZEpine SUSP 100 MG/5 ML NGT SCH (22:19)
[2017-01-22] VITALS (37 sets, daily range): BP systolic 109–165; BP diastolic 67–100; PULSE 91–136; RESP 18–44
[2017-01-22] MEDS: HALOPERIDOL 5 MG INJ IV SCH ×4 (00:28→17:50)
[2017-01-22] MEDS: METOCLOPRAMIDE 10 MG INJ IV SCH ×4 (00:29→17:51)
[2017-01-22] MEDS: MIDAZOLAM (DRIP) 50 mg/50 mL 50 ML IV SCH ×2 (00:44→08:41)
[2017-01-22] MEDS: ALBUTEROL 18 GM INHALER INH SCH ×4 (01:29→19:22)
[2017-01-22] MEDS: IPRATROPIUM (HFA) 12.9 GM INHALER INH SCH ×4 (01:29→19:22)
[2017-01-22] MEDS: LORAZEPAM 2 MG INJ IV PRN ×4 (01:35→08:54)
[2017-01-22] MEDS: PROPOFOL 100 ML IV SCH ×6 (03:01→18:23)
[2017-01-22 06:08] LABS: BASOPHIL # 0.1 10^3/ul (0.0-0.1); BASOPHILS % 0.6 % (0.0-2.0); EOSINOPHILS # 0.2 10^3/ul (0.0-0.5); EOSINOPHILS % 1.6 % (0.0-7.0); HEMATOCRIT 33.6 % (42.0-52.0); HEMOGLOBIN 10.9 g/dl (14.0-18.0); LYMPHOCYTES # 0.8 10^3/ul (0.8-2.9); LYMPHOCYTES % 6.1 % (15.0-51.0); MEAN CORPUSCULAR HEMOGLOBIN 28.8 pg (29.0-33.0); MEAN CORPUSCULAR HGB CONC 32.4 g/dl (32.0-37.0); MEAN CORPUSCULAR VOLUME 88.7 fl (82.0-101.0); MEAN PLATELET VOLUME 12.4 fl (7.4-10.4); MONOCYTES % 7.2 % (0.0-11.0); NEUTROPHIL # 11.2 10^3/ul (1.6-7.5); PLATELET COUNT 350 10^3/UL (140-415); RED BLOOD COUNT 3.79 10^6/ul (4.70-6.10); RED CELL DISTRIBUTION WIDTH 14.1 % (11.5-14.5); WHITE BLOOD COUNT 13.3 10^3/ul (4.8-10.8)
[2017-01-22] MEDS: PANTOPRAZOLE 40 MG INJ IV SCH ×2 (06:08→17:50)
[2017-01-22] MEDS: FENTAnyl (DRIP) 1000 mcg/100mL 100 ML IV SCH ×2 (06:09→14:24)
[2017-01-22 07:35] LABS: ALBUMIN 3.8 g/dl (3.3-4.9); ALBUMIN/GLOBULIN RATIO 0.92; BILIRUBIN,INDIRECT 0.2 mg/dl (0-1.1); BILIRUBIN,TOTAL 0.2 mg/dl (0.2-1.3); CALCIUM 9.4 mg/dl (8.4-10.2); CREATININE 0.73 mg/dl (0.61-1.24); POTASSIUM 4.4 mmol/L (3.5-5.1); TOTAL PROTEIN 7.9 g/dl (6.1-8.1)
[2017-01-22 07:59] LABS: MAGNESIUM 1.9 mg/dl (1.7-2.5)
[2017-01-22] MEDS: QUETIAPINE 100 MG TAB NGT SCH ×4 (08:41→21:47)
[2017-01-22] MEDS: POLYETHYLENE GLYCOL 17 GM PACKET NGT SCH (08:41)
[2017-01-22] MEDS: DEXTROSE 5% IV SCH (08:53)
[2017-01-22] MEDS: THIAMINE IV SCH (08:53)
[2017-01-22] MEDS: CHLORDIAZEPOXIDE 25 MG CAP PO SCH (09:23)
--- NOTE | 2017-01-22 09:58 | PN ---
Date/Time of Note Date/Time of Note DATE: 01/22/17 TIME: 09:48 Assessment/Plan VTE Prophylaxis VTE Prophylaxis Intervention: SCD's Lines/Catheters IV Catheter Type (from Nrs): PICC Line Central line still needed: Yes (For IV access and multiple drips) Urinary Cath still in place: Yes Reason Cath still needed: other (indicate) (Intubated and sedated) Assessment/Plan Assessment/Plan 46 yo male with: 1. Severe encephalopathy 2ry to drug abuse likely Bath salts and/or synthetic marijuana and also bipolar disorder with violent behaviors and noncompliance with medications per previous psychiatry notes. No other clear etiology so far of encephalopathic, neurology on board, CT head 2 since admission are both wnl , EEG x2 showing encephalopathy but patient also has been on sedating agents, MRI brain wnl. Patient still with episodes of agitation and requiring multiple sedating agents. Reconciliation and titration of her psychiatric medications have been done, so far still unable to successfully de-escalate on the sedation. We will keep attempting again to titrate sedating agents down, propofol first followed by fentanyl and benzodiazepines last. For now we will see if we can switch to Ativan drip from Versed drip and get the patient off propofol hopefully fentanyl also. D/C Librium, increase carbamazepine 400 mg twice daily Continue IV thiamine, also on Haldol scheduled. 2. Acute respiratory Failure 2ry to severe Encephalopathy from Drug overuse, intubated, sedated and paralysed. Patient was briefly extubated last week for 2 -1/2 hours but had to be reintubated due to inability to protect his airway, of note he was still on sedating agents. WBC within normal now and chest x-ray has been better but with compressive atelectasis. Still on FiO2 of 30% and PEEP of 7. Still on fentanyl, propofol, Haldol scheduled, Librium and Versed for sedation, and as needed Ativan but hopefully will be able to titrate at least propofol to off if we able to switch to Ativan drip. Patient has been restarted on Seroquel and Tegretol dosing adjusted to outpatient dosing. Trazodone resumed at night. 3. Bipolar disorder: Likely noncompliant with psychiatric medications. Medication resumed and adjusted to outpatient dosing based on the note from psychiatry 5 days prior to admission that were able to obtain last Wednesday, patient Seroquel can even be titrated higher, according to the notes he was on Seroquel XR, increased to 1000 mg nightly per the latest note. Now on Seroquel to 200 mg QID. Increasing carbamazepine to 400 mg twice daily. Continue Haldol, Ativan. Again per the girlfriend it is very likely that the patient was not fully compliant. 4. Right foot Lisfranc fracture: Pain control and ? splint 5. Anemia: Hemoglobin stable at approx 10, status post 1 unit pRBC on 01/15. SCDs to lower extremities. On Reglan up to 10 mg IV q6 and proton pump inhibitors. Tolerating tube feedings so far. Patient's 1/2 sister to be called regarding consenting for blood transfusions and procedures. 7. Hypokalemia: Continue to replace potassium as needed, check labs daily especially while patient is on Lasix. Magnesium level wnl. On free water. Prophylaxis: SCDs for DVT prophylaxis, Protonix for GI prophylaxis Disposition: Still in ICU, re-intubated, sedated, trying to weaning off sedation. Family meeting 01/14 did confirm that patient is noncompliant with medication, unfortunately he does have significant behavioral issues including violent behavior. He is a bipolar that seems to be mostly manic most of the time and noncompliant with medications at all. Drug use is an issue. We will try to do our best to have the patient safely extubated soon but does not seem to be possible so far he he is more and more likely to need tracheostomy and PEG which the 1/2 sister understand and has made does understand that either way she will not be involved in the primary caregiving of patient and he will need to be placed at the time of discharge no matter what his condition is as long as he cannot take care of himself. Subjective 24 Hr Interval Summary Free Text/Dictation Patient still requiring multiple sedating agents, will attempt to switch her on Ativan drip today, otherwise unchanged clinical status. At this point unfortunately it has been 22 days now patient has been intubated, we are unable to wean off the ventilator and he did fail extubation once, he may end up needing a tracheostomy sooner rather than later Resolved hematuria Exam/Review of Systems Vital Signs Vitals Vital Signs Date Time Temp Pulse Resp B/P Pulse Ox O2 Delivery O2 Flow Rate FiO2 01/22/17 08:00 96 26 120/69 92 01/22/17 07:30 Mechanical Ventilator 01/22/17 07:00 99.2 01/22/17 05:20 30 Intake and Output 01/21/17 01/21/17 01/22/17 14:59 22:59 06:59 Intake Total 789.4 ml 700.4 ml 942.332 ml Output Total 480 ml 340 ml 490 ml Balance 309.4 ml 360.4 ml 452.332 ml Exam Constitutional: other (Currently sedated and calm, however extremely agitated with any decrease of his multiple sedating agents) Respiratory: diminished breath sounds (Bases bilaterally), other (Mechanical ventilation) Cardiovascular: regular rate and rhythm Gastrointestinal: non-tender, other (Tolerating tube feeding), soft Musculoskeletal: nl extremities to inspection Extremities: normal pulses, other (No edema, clubbing or cyanosis) Neurological: other (Sedated, intubated) Results Result Diagram: 01/22/17 0450 01/22/17 0450 Results 24 hrs Laboratory Tests Test 01/22/17 04:50 White Blood Count 13.3 #H Red Blood Count 3.79 L Hemoglobin 10.9 L Hematocrit 33.6 L Mean Corpuscular Volume 88.7 Mean Corpuscular Hemoglobin 28.8 L Mean Corpuscular Hemoglobin Concent 32.4 Red Cell Distribution Width 14.1 Platelet Count 350 Mean Platelet Volume 12.4 H Neutrophils % 84.0 H Lymphocytes % 6.1 L Monocytes % 7.2 Eosinophils % 1.6 Basophils % 0.6 Nucleated Red Blood Cells % 0.0 Neutrophils # 11.2 H Lymphocytes # 0.8 Monocytes # 1.0 H Eosinophils # 0.2 Basophils # 0.1 Nucleated Red Blood Cells # 0.0 Sodium Level 143 Potassium Level 4.4 Chloride Level 104 Carbon Dioxide Level 26 Anion Gap 17 H Blood Urea Nitrogen 10 Creatinine 0.73 Glucose Level 115 Calcium Level 9.4 Magnesium Level 1.9 Total Bilirubin 0.2 Direct Bilirubin 0.00 Indirect Bilirubin 0.2 Aspartate Amino Transf (AST/SGOT) 46 Alanine Aminotransferase (ALT/SGPT) 46 Alkaline Phosphatase 254 H Total Protein 7.9 Albumin 3.8 Globulin 4.10 H Albumin/Globulin Ratio 0.92 Triglycerides Level 1033 H Cholesterol Level 340 H LDL Cholesterol, Calculated 107 HDL Cholesterol 26 L Cholesterol/HDL Ratio 13.0 Medications Medications Current Medications Acetaminophen (Tylenol Tab) 650 mg Q4H PRN PO pain/fever Last administered on 01/11/17 07:46; Admin Dose 650 MG; Start 12/31/16 at 01:00 Hydralazine HCl (Apresoline) 25 mg Q6H PRN PO sbp>160; Start 12/31/16 at 01:00 Enalaprilat (Vasotec Iv) 1.25 mg Q6H PRN IV sbp>160; Start 12/31/16 at 01:00 Ondansetron HCl (Zofran Inj) 4 mg Q4H PRN IV nausea; Start 12/31/16 at 01:00 Hydralazine HCl 10 mg 10 mg Q4H PRN IV ELEVATED SYSTOLIC BP Last administered on 01/13/17 16:25; Admin Dose 10 MG; Start 12/31/16 at 05:30 Midazolam HCl 50 ml @ 1 mls/hr TITRATE IV Last administered on 01/22/17 08:41 ; Admin Dose 10 MLS/HR; Start 12/31/16 at 16:30 Vecuronium [place]/Dextrose (Vecuronium [place]/D5W) 100 ml @ 6.03 mls/hr TITRATE IV Last administered on 01/03/17 04:07; Admin Dose 6.03 MLS/HR; Start 01/01/17 at 06:00 Labetalol HCl (Labetalol) 10 mg Q4H PRN IV SBP GREATER THAN 160 Last administered on 01/10/17 22:33; Admin Dose 10 MG; Start 01/01/17 at 12:00 IV Flush (NS 10 ml) 10 ml PRN PRN IV IV PROTOCOL; Start 01/02/17 at 17:00 Lorazepam (Ativan) 2 mg Q2H PRN IV PRN Agitation. Last administered on 08:54; Admin Dose 2 MG; Start 01/04/17 at 09:00 Pantoprazole 40 mg 40 mg BID@06,18 IV Last administered on 01/22/17 06:08; Admin Dose 40 MG; Start 01/06/17 at 09:30 Propofol (Diprivan) 100 ml @ 3.537 mls/ hr Q12H IV Last administered on 08:54; Admin Dose 2.122 MLS/HR; Start 01/10/17 at 09:30 Metoclopramide HCl (Reglan) 10 mg Q6 IV Last administered on 01/22/17 06:09; Admin Dose 10 MG; Start 01/11/17 at 12:00 Valproate Sodium (Depakene Liquid Cup) 500 mg QHS NGT Last administered on 01/21 20:59; Admin Dose 500 MG; Start 01/11/17 at 21:00 Haloperidol (Haldol) 5 mg Q6 IV Last administered on 01/22/17 06:08; Admin Dose 5 MG; Start 01/12/17 at 12:00 Carbamazepine (Tegretol Susp) 400 mg QHS NGT Last administered on 01/21/17 22: 19; Admin Dose 400 MG; Start 01/12/17 at 21:00 Carbamazepine (Tegretol Susp) 200 mg QAM GTB Last administered on 01/21/17 09: 11; Admin Dose 200 MG; Start 01/16/17 at 09:00 Trazodone HCl (Desyrel) 150 mg HS PO Last administered on 01/21/17 21:00; Admin Dose 150 MG; Start 01/15/17 at 21:00 Chlordiazepoxide (Librium) 50 mg TID PO Last administered on 01/22/17 09:23; Admin Dose 50 MG; Start 01/17/17 at 13:00 Quetiapine Fumarate 200 mg 200 mg QID NGT Last administered on 01/22/17 08:41 ; Admin Dose 200 MG; Start 01/18/17 at 13:00 Thiamine HCl/ Dextrose (Vitamin B1/D5W) 101 ml @ 202 mls/hr DAILY IV Last administered on 01/22/17 08:53; Admin Dose 202 MLS/HR; Start 01/18/17 at 13:30 Polyethylene Glycol (Miralax) 17 gm DAILY NGT Last administered on 01/22/17 08 :41; Admin Dose 17 GM; Start 01/19/17 at 10:00 Docusate Sodium 100 mg 100 mg BID PRN NGT CONSTIPATION; Start 01/19/17 at 10: 00 Fentanyl (Sublimaze) 100 ml @ 2.5 mls/hr TITRATE IV Last administered on 06:09; Admin Dose 10 MLS/HR; Start 01/19/17 at 13:00 TRENT NEWMAN Jan 22, 2017 09:58
--- NOTE | 2017-01-22 12:01 | CONS ---
Date/Time of Note Date/Time of Note DATE: 01/22/17 TIME: 11:59 Consult Date/Type/Reason Admit Date/Time Dec 31, 2016 at 00:30 Initial Consult Date 12/31/16 Type of Consultation: Pulm Ordering Provider: JEAN MARIE BRAGG MD Subjective Still with significant agitation continuing multiple medications. Somewhat improved with addition of Ativan. Objective Vital Signs Date Time Temp Pulse Resp B/P Pulse Ox O2 Delivery O2 Flow Rate FiO2 01/22/17 11:00 100 24 119/70 92 Mechanical Ventilator 01/22/17 09:48 30 01/22/17 07:00 99.2 Intake and Output 01/21/17 01/21/17 01/22/17 15:00 23:00 07:00 Intake Total 789.4 ml 699.2 ml 902.332 ml Output Total 435 ml 340 ml 600 ml Balance 354.4 ml 359.2 ml 302.332 ml Exam GENERAL: Well-nourished well-developed gentleman orally intubated on mechanical ventilation VITAL SIGNS: see below. HEENT: Pupils equal, round, and reactive to light. CARDIAC: S1, S2, 1/6 systolic ejection murmur CHEST: Diminished air entry bilaterally. ABDOMEN: Mildly distended. Bowel sounds present no guarding or rebound EXTREMITIES: No cyanosis, clubbing edema +1 NEUROLOGIC: Generalized weakness Results/Medications Result Diagram: 01/22/17 0450 01/22/17 0450 Results 24 hrs Laboratory Tests Test 01/22/17 04:50 White Blood Count 13.3 #H Red Blood Count 3.79 L Hemoglobin 10.9 L Hematocrit 33.6 L Mean Corpuscular Volume 88.7 Mean Corpuscular Hemoglobin 28.8 L Mean Corpuscular Hemoglobin Concent 32.4 Red Cell Distribution Width 14.1 Platelet Count 350 Mean Platelet Volume 12.4 H Neutrophils % 84.0 H Lymphocytes % 6.1 L Monocytes % 7.2 Eosinophils % 1.6 Basophils % 0.6 Nucleated Red Blood Cells % 0.0 Neutrophils # 11.2 H Lymphocytes # 0.8 Monocytes # 1.0 H Eosinophils # 0.2 Basophils # 0.1 Nucleated Red Blood Cells # 0.0 Sodium Level 143 Potassium Level 4.4 Chloride Level 104 Carbon Dioxide Level 26 Anion Gap 17 H Blood Urea Nitrogen 10 Creatinine 0.73 Glucose Level 115 Calcium Level 9.4 Magnesium Level 1.9 Total Bilirubin 0.2 Direct Bilirubin 0.00 Indirect Bilirubin 0.2 Aspartate Amino Transf (AST/SGOT) 46 Alanine Aminotransferase (ALT/SGPT) 46 Alkaline Phosphatase 254 H Total Protein 7.9 Albumin 3.8 Globulin 4.10 H Albumin/Globulin Ratio 0.92 Triglycerides Level 1033 H Cholesterol Level 340 H LDL Cholesterol, Calculated 107 HDL Cholesterol 26 L Cholesterol/HDL Ratio 13.0 Medications Current Medications Acetaminophen (Tylenol Tab) 650 mg Q4H PRN PO pain/fever Last administered on 01/11/17 07:46; Admin Dose 650 MG; Start 12/31/16 at 01:00 Hydralazine HCl (Apresoline) 25 mg Q6H PRN PO sbp>160; Start 12/31/16 at 01:00 Enalaprilat (Vasotec Iv) 1.25 mg Q6H PRN IV sbp>160; Start 12/31/16 at 01:00 Ondansetron HCl (Zofran Inj) 4 mg Q4H PRN IV nausea; Start 12/31/16 at 01:00 Hydralazine HCl 10 mg 10 mg Q4H PRN IV ELEVATED SYSTOLIC BP Last administered on 01/13/17 16:25; Admin Dose 10 MG; Start 12/31/16 at 05:30 Midazolam HCl 50 ml @ 1 mls/hr TITRATE IV Last administered on 01/22/17 08:41 ; Admin Dose 10 MLS/HR; Start 12/31/16 at 16:30 Vecuronium [place]/Dextrose (Vecuronium [place]/D5W) 100 ml @ 6.03 mls/hr TITRATE IV Last administered on 01/03/17 04:07; Admin Dose 6.03 MLS/HR; Start 01/01/17 at 06:00 Labetalol HCl (Labetalol) 10 mg Q4H PRN IV SBP GREATER THAN 160 Last administered on 01/10/17 22:33; Admin Dose 10 MG; Start 01/01/17 at 12:00 IV Flush (NS 10 ml) 10 ml PRN PRN IV IV PROTOCOL; Start 01/02/17 at 17:00 Lorazepam (Ativan) 2 mg Q2H PRN IV PRN Agitation. Last administered on 08:54; Admin Dose 2 MG; Start 01/04/17 at 09:00 Pantoprazole 40 mg 40 mg BID@06,18 IV Last administered on 01/22/17 06:08; Admin Dose 40 MG; Start 01/06/17 at 09:30 Propofol (Diprivan) 100 ml @ 3.537 mls/ hr Q12H IV Last administered on 08:54; Admin Dose 2.122 MLS/HR; Start 01/10/17 at 09:30 Metoclopramide HCl (Reglan) 10 mg Q6 IV Last administered on 01/22/17 06:09; Admin Dose 10 MG; Start 01/11/17 at 12:00 Valproate Sodium (Depakene Liquid Cup) 500 mg QHS NGT Last administered on 01/21 20:59; Admin Dose 500 MG; Start 01/11/17 at 21:00 Haloperidol (Haldol) 5 mg Q6 IV Last administered on 01/22/17 06:08; Admin Dose 5 MG; Start 01/12/17 at 12:00 Trazodone HCl (Desyrel) 150 mg HS PO Last administered on 01/21/17 21:00; Admin Dose 150 MG; Start 01/15/17 at 21:00 Chlordiazepoxide (Librium) 50 mg TID PO Last administered on 01/22/17 09:23; Admin Dose 50 MG; Start 01/17/17 at 13:00 Quetiapine Fumarate 200 mg 200 mg QID NGT Last administered on 01/22/17 08:41 ; Admin Dose 200 MG; Start 01/18/17 at 13:00 Thiamine HCl/ Dextrose (Vitamin B1/D5W) 101 ml @ 202 mls/hr DAILY IV Last administered on 01/22/17 08:53; Admin Dose 202 MLS/HR; Start 01/18/17 at 13:30 Polyethylene Glycol (Miralax) 17 gm DAILY NGT Last administered on 01/22/17 08 :41; Admin Dose 17 GM; Start 01/19/17 at 10:00 Docusate Sodium 100 mg 100 mg BID PRN NGT CONSTIPATION; Start 01/19/17 at 10: 00 Fentanyl (Sublimaze) 100 ml @ 2.5 mls/hr TITRATE IV Last administered on 11/3/ 17at 06:09; Admin Dose 10 MLS/HR; Start 01/19/17 at 13:00 Carbamazepine (Tegretol Susp (Ped)) 400 mg BID NGT ; Start 01/22/17 at 21:00 Assessment/Plan Chief Complaint/Hosp Course IMP: 1. Hypoxic respiratory failure/Vent Dependence 2. Acute Lung Injury/ARDS 3. History of drug overdose 4. 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 5. Likely ALEX 6. Anemia 7. Persistent need for propofol concerning for possible pancreatitis elevated triglyceride levels. RECS: 1. Continue mechanical ventilation. Patient unlikely to be safely liberated from mechanical ventilation, I would recommend tracheostomy and PEG tube placement. 2. Continue current vent settings. 3. Tube feeding if tolerated 4. Polypharmacy. Will DC Librium Versed. Start Ativan drip. 5. Lasix daily 6. Adjust psych medications. Decrease propofol if tolerated. Patient needs tracheostomy this should be performed at this site as he is currently not stable for transfer to alternative hospital. Hopefully with tracheostomy patient would require less sedation and would have improved agitation. I will discuss with insurance company. Problems: BRIANNA SAAVEDRA MD, [facility] Jan 22, 2017 12:01
[2017-01-22] MEDS: LORAZEPAM (MDV) 100 MG in DEXTROSE 5% 50 ML IV SCH ×2 (13:47→23:17)
[2017-01-22] MEDS ORDERED: carBAMAZEpine SUSP 100 MG/5 ML NGT SCH (21:00)
[2017-01-22] MEDS: traZODone 100 MG TAB PO SCH (21:47)
[2017-01-22] MEDS: VALPROIC ACID LIQUID CUP 250 MG/5 ML CUP NGT SCH (21:47)
[2017-01-22] MEDS: carBAMAZepine SUSP 20 MG/ML POSYG NGT SCH (21:51)
[2017-01-23] VITALS (36 sets, daily range): BP systolic 107–129; BP diastolic 57–80; PULSE 87–122; RESP 18–30
[2017-01-23] MEDS: FENTAnyl (DRIP) 1000 mcg/100mL 100 ML IV SCH ×2 (00:10→09:56)
[2017-01-23] MEDS: METOCLOPRAMIDE 10 MG INJ IV SCH ×5 (00:39→23:04)
[2017-01-23] MEDS: HALOPERIDOL 5 MG INJ IV SCH ×2 (00:39→05:58)
[2017-01-23] MEDS: ALBUTEROL 18 GM INHALER INH SCH ×4 (01:47→19:23)
[2017-01-23] MEDS: IPRATROPIUM (HFA) 12.9 GM INHALER INH SCH ×4 (01:48→19:23)
[2017-01-23] MEDS: PROPOFOL 100 ML IV SCH ×3 (04:19→20:22)
[2017-01-23 05:11] LABS: BASOPHIL # 0.1 10^3/ul (0.0-0.1); BASOPHILS % 0.9 % (0.0-2.0); EOSINOPHILS # 0.8 10^3/ul (0.0-0.5); EOSINOPHILS % 9.5 % (0.0-7.0); HEMATOCRIT 30.8 % (42.0-52.0); HEMOGLOBIN 9.7 g/dl (14.0-18.0); LYMPHOCYTES # 1.2 10^3/ul (0.8-2.9); LYMPHOCYTES % 14.8 % (15.0-51.0); MEAN CORPUSCULAR HEMOGLOBIN 28.3 pg (29.0-33.0); MEAN CORPUSCULAR HGB CONC 31.5 g/dl (32.0-37.0); MEAN CORPUSCULAR VOLUME 89.8 fl (82.0-101.0); MEAN PLATELET VOLUME 11.9 fl (7.4-10.4); NEUTROPHILS % 62.5 % (39.0-77.0); PLATELET COUNT 300 10^3/UL (140-415); RED BLOOD COUNT 3.43 10^6/ul (4.70-6.10); RED CELL DISTRIBUTION WIDTH 14.4 % (11.5-14.5)
[2017-01-23 05:31] LABS: MAGNESIUM 1.9 mg/dl (1.7-2.5); PHOSPHORUS 5.9 mg/dl (2.5-4.9)
[2017-01-23 05:33] LABS: CALCIUM 8.9 mg/dl (8.4-10.2); CREATININE 0.78 mg/dl (0.61-1.24); POTASSIUM 3.9 mmol/L (3.5-5.1)
[2017-01-23] MEDS: PANTOPRAZOLE 40 MG INJ IV SCH ×2 (05:58→17:08)
[2017-01-23] MEDS: POTASSIUM CHLORIDE 50 ML IVPB PRN (06:34)
[2017-01-23] MEDS: POLYETHYLENE GLYCOL 17 GM PACKET NGT SCH (08:46)
[2017-01-23] MEDS: THIAMINE IV SCH (08:46)
[2017-01-23] MEDS: DEXTROSE 5% IV SCH (08:46)
[2017-01-23] MEDS: QUETIAPINE 100 MG TAB NGT SCH ×4 (08:47→20:22)
[2017-01-23] MEDS: carBAMAZepine SUSP 20 MG/ML POSYG NGT SCH ×2 (08:50→20:22)
--- NOTE | 2017-01-23 11:08 | PN ---
Date/Time of Note Date/Time of Note DATE: 01/23/17 TIME: 10:54 Assessment/Plan VTE Prophylaxis VTE Prophylaxis Intervention: SCD's Lines/Catheters IV Catheter Type (from Nrs): PICC Line Central line still needed: Yes (IV access) Urinary Cath still in place: Yes Reason Cath still needed: other (indicate) (Sedated and intubated) Assessment/Plan Assessment/Plan 46 yo male with: 1. Severe encephalopathy 2ry to drug abuse likely Bath salts and/or synthetic marijuana and also bipolar disorder with violent behaviors and noncompliance with medications per previous psychiatry notes. No other clear etiology so far of encephalopathic, neurology on board, CT head 2 since admission are both wnl , EEG x2 showing encephalopathy but patient also has been on sedating agents, MRI brain wnl. Patient still with episodes of agitation and requiring multiple sedating agents. Reconciliation and titration of her psychiatric medications have been done, so far still unable to successfully de-escalate on the sedation. Patient switch to Ativan drip over the past 24 hours, off propofol, Librium discontinued, off Versed drip. Will attempt titrating the fentanyl down. Change Haldol to as needed. Increased carbamazepine 400 mg twice daily Continue IV thiamine. 2. Acute respiratory Failure 2ry to severe Encephalopathy from Drug overuse, intubated, sedated and paralysed. Patient was briefly extubated last week for 2 -1/2 hours but had to be reintubated due to inability to protect his airway, of note he was still on sedating agents. WBC within normal now and chest x-ray has been better but with compressive atelectasis. Still on FiO2 of 30% and PEEP of 7. Still on fentanyl, Haldol prn, now on Ativan gtt. Patient has been restarted on Seroquel and Tegretol dosing adjusted to outpatient dosing. Trazodone resumed at night. 3. Bipolar disorder: Likely noncompliant with psychiatric medications. Medication resumed and adjusted to outpatient dosing based on the note from psychiatry 5 days prior to admission that were able to obtain last Wednesday, patient Seroquel can even be titrated higher, according to the notes he was on Seroquel XR, increased to 1000 mg nightly per the latest note. Now on Seroquel to 200 mg QID. Increased carbamazepine to 400 mg twice daily. Continue Haldol prn and on Ativan drip. Again per the girlfriend it is very likely that the patient was not fully compliant. 4. Right foot Lisfranc fracture: Pain control and ? splint 5. Anemia: Hemoglobin stable at approx 10, status post 1 unit pRBC on 01/15. SCDs to lower extremities. On Reglan up to 10 mg IV q6 and proton pump inhibitors. Tolerating tube feedings so far. Patient's 1/2 sister to be called regarding consenting for blood transfusions and procedures. 7. Hypokalemia: Continue to replace potassium as needed, check labs daily especially while patient is on Lasix. Magnesium level wnl. On free water. Prophylaxis: SCDs for DVT prophylaxis, Protonix for GI prophylaxis Disposition: Still in ICU, re-intubated, sedated, trying to weaning off sedation. Family meeting 01/14 did confirm that patient is noncompliant with medication, unfortunately he does have significant behavioral issues including violent behavior. He is a bipolar that seems to be mostly manic most of the time and noncompliant with medications at all. Drug use is an issue. We will try to do our best to have the patient safely extubated soon but does not seem to be possible so far he he is more and more likely to need tracheostomy and PEG which the 1/2 sister understand and has made does understand that either way she will not be involved in the primary caregiving of patient and he will need to be placed at the time of discharge no matter what his condition is as long as he cannot take care of himself. Subjective 24 Hr Interval Summary Free Text/Dictation Patient seems to be more responsive to Ativan drip, Versed drip has been discontinued yesterday, propofol drip discontinued this morning, patient currently on fentanyl and Ativan drip, also on Seroquel, Haldol, carbamazepine and trazodone for his psychiatric medications. Exam/Review of Systems Vital Signs Vitals Vital Signs Date Time Temp Pulse Resp B/P Pulse Ox O2 Delivery O2 Flow Rate FiO2 01/23/17 09:33 87 20 98 40 01/23/17 06:00 123/67 Mechanical Ventilator 01/23/17 04:00 98.7 Intake and Output 01/22/17 01/22/17 01/23/17 15:00 23:00 07:00 Intake Total 532.99 ml 500.31 ml 546.2 ml Output Total 310 ml 350 ml 240 ml Balance 222.99 ml 150.31 ml 306.2 ml Exam Constitutional: other (Sedated, intubated) Respiratory: diminished breath sounds (Bases bilaterally otherwise clear), other (On mechanical ventilation) Cardiovascular: nl pulses, regular rate and rhythm Gastrointestinal: non-tender, other (Tolerating tube feedings), soft Musculoskeletal: nl extremities to inspection Extremities: normal pulses, other (No edema, clubbing or cyanosis) Neurological: other (Sedated and intubated) Results Result Diagram: 01/23/1741901/23/17419 Results 24 hrs Laboratory Tests Test 01/23/17 04:20 White Blood Count 8.0 # Red Blood Count 3.43 L Hemoglobin 9.7 L Hematocrit 30.8 L Mean Corpuscular Volume 89.8 Mean Corpuscular Hemoglobin 28.3 L Mean Corpuscular Hemoglobin Concent 31.5 L Red Cell Distribution Width 14.4 Platelet Count 300 Mean Platelet Volume 11.9 H Neutrophils % 62.5 Lymphocytes % 14.8 L Monocytes % 12.0 H Eosinophils % 9.5 H Basophils % 0.9 Nucleated Red Blood Cells % 0.0 Neutrophils # 5.0 Lymphocytes # 1.2 Monocytes # 1.0 H Eosinophils # 0.8 H Basophils # 0.1 Nucleated Red Blood Cells # 0.0 Sodium Level 143 Potassium Level 3.9 Chloride Level 104 Carbon Dioxide Level 30 Anion Gap 13 Blood Urea Nitrogen 12 Creatinine 0.78 Glucose Level 101 Calcium Level 8.9 Phosphorus Level 5.9 H Magnesium Level 1.9 Medications Medications Current Medications Acetaminophen (Tylenol Tab) 650 mg Q4H PRN PO pain/fever Last administered on 01/11/17t 07:46; Admin Dose 650 MG; Start 12/31/16 at 01:00 Hydralazine HCl (Apresoline) 25 mg Q6H PRN PO sbp>160; Start 12/31/16 at 01:00 Enalaprilat (Vasotec Iv) 1.25 mg Q6H PRN IV sbp>160; Start 12/31/16 at 01:00 Ondansetron HCl (Zofran Inj) 4 mg Q4H PRN IV nausea; Start 12/31/16 at 01:00 Hydralazine HCl (Apresoline) 10 mg Q4H PRN IV ELEVATED SYSTOLIC BP Last administered on 01/13/17 16:25; Admin Dose 10 MG; Start 12/31/16 at 05:30 Labetalol HCl (Labetalol) 10 mg Q4H PRN IV SBP GREATER THAN 160 Last administered on 01/10/17 22:33; Admin Dose 10 MG; Start 01/01/17 at 12:00 IV Flush (NS 10 ml) 10 ml PRN PRN IV IV PROTOCOL; Start 01/02/17 at 17:00 Lorazepam (Ativan) 2 mg Q2H PRN IV PRN Agitation. Last administered on 08:54; Admin Dose 2 MG; Start 01/04/17 at 09:00 Pantoprazole 40 mg 40 mg BID@06,18 IV Last administered on 01/23/17 05:58; Admin Dose 40 MG; Start 01/06/17 at 09:30 Propofol (Diprivan) 100 ml @ 3.537 mls/ hr Q12H IV Last administered on 04:19; Admin Dose 10.611 MLS/HR; Start 01/10/17 at 09:30 Metoclopramide HCl (Reglan) 10 mg Q6 IV Last administered on 01/23/17 05:58; Admin Dose 10 MG; Start 01/11/17 at 12:00 Valproate Sodium (Depakene Liquid Cup) 500 mg QHS NGT Last administered on 01/22 21:47; Admin Dose 500 MG; Start 01/11/17 at 21:00 Haloperidol (Haldol) 5 mg Q6 IV Last administered on 01/23/17 05:58; Admin Dose 5 MG; Start 01/12/17 at 12:00 Trazodone HCl (Desyrel) 150 mg HS PO Last administered on 01/22/17 21:47; Admin Dose 150 MG; Start 01/15/17 at 21:00 Quetiapine Fumarate 200 mg 200 mg QID NGT Last administered on 01/23/17 08:47 ; Admin Dose 200 MG; Start 01/18/17 at 13:00 Thiamine HCl/ Dextrose (Vitamin B1/D5W) 101 ml @ 202 mls/hr DAILY IV Last administered on 01/23/17 08:46; Admin Dose 202 MLS/HR; Start 01/18/17 at 13:30 Polyethylene Glycol (Miralax) 17 gm DAILY NGT Last administered on 01/23/17 08 :46; Admin Dose 17 GM; Start 01/19/17 at 10:00 Docusate Sodium 100 mg 100 mg BID PRN NGT CONSTIPATION; Start 01/19/17 at 10: 00 Fentanyl (Sublimaze) 100 ml @ 2.5 mls/hr TITRATE IV Last administered on 09:56; Admin Dose 10 MLS/HR; Start 01/19/17 at 13:00 Carbamazepine 400 mg 400 mg BID NGT Last administered on 01/23/17 08:50; Admin Dose 400 MG; Start 01/22/17 at 21:00 Lorazepam/Dextrose (Ativan/D5W) 100 ml @ 0 mls/hr TITRATE IV Last administered on 01/22/17 23:17; Admin Dose 8 MLS/HR; Start 01/22/17 at 13:00 TRENT NEWMAN Jan 23, 2017 11:07
[2017-01-23] MEDS: LORAZEPAM (MDV) 100 MG in DEXTROSE 5% 50 ML IV SCH ×2 (12:20→23:21)
--- NOTE | 2017-01-23 13:42 | CONS ---
Date/Time of Note Date/Time of Note DATE: 01/23/17 TIME: 13:39 Consult Date/Type/Reason Admit Date/Time Dec 31, 2016 at 00:30 Initial Consult Date 01/06/17 Type of Consultation: Pulm/CCM Ordering Provider: JEAN MARIE BRAGG MD Subjective No events. Sedated on the MV. Objective Vital Signs Date Time Temp Pulse Resp B/P Pulse Ox O2 Delivery O2 Flow Rate FiO2 01/23/17 11:57 93 20 98 40 01/23/17 11:00 129/67 Mechanical Ventilator 01/23/17 08:00 98.5 Intake and Output 01/22/17 01/22/17 01/23/17 15:00 23:00 07:00 Intake Total 532.99 ml 500.31 ml 546.2 ml Output Total 310 ml 350 ml 240 ml Balance 222.99 ml 150.31 ml 306.2 ml Exam HEENT: Neck supple; no JVD; no LAD; + ET tube CVS: RRR, S1 and S2 CHEST: Coarse BS ABD: Soft, NT, + BS EXT: No c/c; + edema Results/Medications Result Diagram: 01/23/1741901/23/17419 Results 24 hrs Laboratory Tests Test 01/23/17 04:20 White Blood Count 8.0 # Red Blood Count 3.43 L Hemoglobin 9.7 L Hematocrit 30.8 L Mean Corpuscular Volume 89.8 Mean Corpuscular Hemoglobin 28.3 L Mean Corpuscular Hemoglobin Concent 31.5 L Red Cell Distribution Width 14.4 Platelet Count 300 Mean Platelet Volume 11.9 H Neutrophils % 62.5 Lymphocytes % 14.8 L Monocytes % 12.0 H Eosinophils % 9.5 H Basophils % 0.9 Nucleated Red Blood Cells % 0.0 Neutrophils # 5.0 Lymphocytes # 1.2 Monocytes # 1.0 H Eosinophils # 0.8 H Basophils # 0.1 Nucleated Red Blood Cells # 0.0 Sodium Level 143 Potassium Level 3.9 Chloride Level 104 Carbon Dioxide Level 30 Anion Gap 13 Blood Urea Nitrogen 12 Creatinine 0.78 Glucose Level 101 Calcium Level 8.9 Phosphorus Level 5.9 H Magnesium Level 1.9 Medications Current Medications Acetaminophen (Tylenol Tab) 650 mg Q4H PRN PO pain/fever Last administered on 01/11/17t 07:46; Admin Dose 650 MG; Start 12/31/16 at 01:00 Hydralazine HCl (Apresoline) 25 mg Q6H PRN PO sbp>160; Start 12/31/16 at 01:00 Enalaprilat (Vasotec Iv) 1.25 mg Q6H PRN IV sbp>160; Start 12/31/16 at 01:00 Ondansetron HCl (Zofran Inj) 4 mg Q4H PRN IV nausea; Start 12/31/16 at 01:00 Hydralazine HCl (Apresoline) 10 mg Q4H PRN IV ELEVATED SYSTOLIC BP Last administered on 01/13/17 16:25; Admin Dose 10 MG; Start 12/31/16 at 05:30 Labetalol HCl (Labetalol) 10 mg Q4H PRN IV SBP GREATER THAN 160 Last administered on 01/10/17 22:33; Admin Dose 10 MG; Start 01/01/17 at 12:00 IV Flush (NS 10 ml) 10 ml PRN PRN IV IV PROTOCOL; Start 01/02/17 at 17:00 Lorazepam (Ativan) 2 mg Q2H PRN IV PRN Agitation. Last administered on 08:54; Admin Dose 2 MG; Start 01/04/17 at 09:00 Pantoprazole 40 mg 40 mg BID@06,18 IV Last administered on 01/23/17 05:58; Admin Dose 40 MG; Start 01/06/17 at 09:30 Propofol (Diprivan) 100 ml @ 3.537 mls/ hr Q12H IV Last administered on 04:19; Admin Dose 10.611 MLS/HR; Start 01/10/17 at 09:30 Metoclopramide HCl (Reglan) 10 mg Q6 IV Last administered on 01/23/17 12:19; Admin Dose 10 MG; Start 01/11/17 at 12:00 Valproate Sodium (Depakene Liquid Cup) 500 mg QHS NGT Last administered on 01/22 21:47; Admin Dose 500 MG; Start 01/11/17 at 21:00 Trazodone HCl (Desyrel) 150 mg HS PO Last administered on 01/22/17 21:47; Admin Dose 150 MG; Start 10/27/17 at 21:00 Quetiapine Fumarate 200 mg 200 mg QID NGT Last administered on 01/23/17 12:20 ; Admin Dose 200 MG; Start 01/18/17 at 13:00 Thiamine HCl/ Dextrose (Vitamin B1/D5W) 101 ml @ 202 mls/hr DAILY IV Last administered on 01/23/17 08:46; Admin Dose 202 MLS/HR; Start 01/18/17 at 13:30 Polyethylene Glycol (Miralax) 17 gm DAILY NGT Last administered on 01/23/17 08 :46; Admin Dose 17 GM; Start 01/19/17 at 10:00 Docusate Sodium 100 mg 100 mg BID PRN NGT CONSTIPATION; Start 01/19/17 at 10: 00 Fentanyl (Sublimaze) 100 ml @ 2.5 mls/hr TITRATE IV Last administered on 09:56; Admin Dose 10 MLS/HR; Start 01/19/17 at 13:00 Carbamazepine 400 mg 400 mg BID NGT Last administered on 01/23/17 08:50; Admin Dose 400 MG; Start 01/22/17 at 21:00 Lorazepam/Dextrose (Ativan/D5W) 100 ml @ 0 mls/hr TITRATE IV Last administered on 01/23/17 12:20; Admin Dose 8 MLS/HR; Start 01/22/17 at 13:00 Haloperidol (Haldol) 5 mg Q6 PRN IV AGITATION; Start 01/23/17 at 11:00 Assessment/Plan Additional Assessment/Plan IMP: 1. Hypoxic respiratory failure/Vent Dependence 2. Acute Lung Injury/ARDS 3. History of drug overdose 4. 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 5. Likely ALEX 6. Anemia 7. Persistent need for propofol concerning for possible pancreatitis elevated triglyceride levels. RECS: 1. Continue mechanical ventilation. 2. Continue current vent settings. 3. Tube feeds/Free H20 4. Minimize sedatives as tolerated 5. Continue seroquel. 35 min cc time JUANA SANCHEZ MD Jan 23, 2017 13:42
[2017-01-23] MEDS: traZODone 100 MG TAB PO SCH (20:22)
[2017-01-23] MEDS: VALPROIC ACID LIQUID CUP 250 MG/5 ML CUP NGT SCH (20:22)
[2017-01-24] VITALS (44 sets, daily range): BP systolic 100–160; BP diastolic 67–124; PULSE 55–119; RESP 20–38
[2017-01-24] MEDS: IPRATROPIUM (HFA) 12.9 GM INHALER INH SCH ×4 (01:31→19:44)
[2017-01-24] MEDS: ALBUTEROL 18 GM INHALER INH SCH ×4 (01:31→19:44)
[2017-01-24] MEDS: PROPOFOL 100 ML IV SCH ×5 (02:21→20:12)
[2017-01-24] MEDS: FENTAnyl (DRIP) 1000 mcg/100mL 100 ML IV SCH ×2 (04:36→21:58)
[2017-01-24 05:09] LABS: BASOPHIL # 0.1 10^3/ul (0.0-0.1); BASOPHILS % 0.8 % (0.0-2.0); EOSINOPHILS # 0.6 10^3/ul (0.0-0.5); EOSINOPHILS % 5.4 % (0.0-7.0); HEMATOCRIT 32.7 % (42.0-52.0); HEMOGLOBIN 10.4 g/dl (14.0-18.0); LYMPHOCYTES # 1.4 10^3/ul (0.8-2.9); LYMPHOCYTES % 13.5 % (15.0-51.0); MEAN CORPUSCULAR HEMOGLOBIN 28.3 pg (29.0-33.0); MEAN CORPUSCULAR HGB CONC 31.8 g/dl (32.0-37.0); MEAN CORPUSCULAR VOLUME 88.9 fl (82.0-101.0); MEAN PLATELET VOLUME 11.7 fl (7.4-10.4); MONOCYTES % 9.5 % (0.0-11.0); NEUTROPHIL # 7.3 10^3/ul (1.6-7.5); NEUTROPHILS % 70.5 % (39.0-77.0); PLATELET COUNT 336 10^3/UL (140-415); RED BLOOD COUNT 3.68 10^6/ul (4.70-6.10); RED CELL DISTRIBUTION WIDTH 14.1 % (11.5-14.5); WHITE BLOOD COUNT 10.3 10^3/ul (4.8-10.8)
[2017-01-24 05:32] LABS: ALBUMIN 3.6 g/dl (3.3-4.9); ALBUMIN/GLOBULIN RATIO 1.02; BILIRUBIN,INDIRECT 0.1 mg/dl (0-1.1); BILIRUBIN,TOTAL 0.1 mg/dl (0.2-1.3); CALCIUM 9.1 mg/dl (8.4-10.2); CREATININE 0.69 mg/dl (0.61-1.24); POTASSIUM 4.5 mmol/L (3.5-5.1); TOTAL PROTEIN 7.1 g/dl (6.1-8.1)
[2017-01-24] MEDS: PANTOPRAZOLE 40 MG INJ IV SCH (06:02)
[2017-01-24] MEDS: METOCLOPRAMIDE 10 MG INJ IV SCH ×4 (06:02→23:48)
[2017-01-24] MEDS: QUETIAPINE 100 MG TAB NGT SCH ×4 (08:23→20:31)
[2017-01-24] MEDS: POLYETHYLENE GLYCOL 17 GM PACKET NGT SCH (08:24)
[2017-01-24] MEDS: DEXTROSE 5% IV SCH (08:24)
[2017-01-24] MEDS: carBAMAZepine SUSP 20 MG/ML POSYG NGT SCH ×2 (08:24→20:30)
[2017-01-24] MEDS: THIAMINE IV SCH (08:24)
[2017-01-24] MEDS: LORAZEPAM (MDV) 100 MG in DEXTROSE 5% 50 ML IV SCH ×2 (08:46→18:12)
--- NOTE | 2017-01-24 10:00 | PN ---
Date/Time of Note Date/Time of Note DATE: 01/24/17 TIME: 09:50 Assessment/Plan VTE Prophylaxis VTE Prophylaxis Intervention: SCD's Lines/Catheters IV Catheter Type (from Nrs): PICC Line Central line still needed: Yes (For IV access) Urinary Cath still in place: Yes Reason Cath still needed: other (indicate) (Intubated and sedated) Assessment/Plan Assessment/Plan 46 yo male with: 1. Severe encephalopathy 2ry to drug abuse likely Bath salts and/or synthetic marijuana and also bipolar disorder with violent behaviors and noncompliance with medications per previous psychiatry notes. No other clear etiology so far of encephalopathic, neurology on board, CT head 2 since admission are both wnl , EEG x2 showing encephalopathy but patient also has been on sedating agents, MRI brain wnl. Patient still with episodes of agitation and requiring multiple sedating agents. Reconciliation and titration of her psychiatric medications have been done, so far still unable to successfully de-escalate on the sedation. Patient switched to Ativan drip over the past 24 hours, back on propofol. Still on fentanyl drip Change Haldol to as needed. Increased carbamazepine 400 mg twice daily Continue IV thiamine. 2. Acute respiratory Failure 2ry to severe Encephalopathy from Drug overuse, intubated, sedated and paralysed. Patient was briefly extubated last week for 2 -1/2 hours but had to be reintubated due to inability to protect his airway, of note he was still on sedating agents. WBC within normal now and chest x-ray has been better but with compressive atelectasis. Still on FiO2 of 30% and PEEP of 7. Still on fentanyl, Haldol prn, now on Ativan gtt. Patient has been restarted on Seroquel and Tegretol dosing adjusted to outpatient dosing. Trazodone resumed at night. 3. Bipolar disorder: Likely noncompliant with psychiatric medications. Medication resumed and adjusted to outpatient dosing based on the note from psychiatry 5 days prior to admission that were able to obtain last Wednesday, patient Seroquel can even be titrated higher, according to the notes he was on Seroquel XR, increased to 1000 mg nightly per the latest note. Now on Seroquel to 200 mg QID. Increased carbamazepine to 400 mg twice daily. Continue Haldol prn and on Ativan drip. Change Depakene to 250 TID (patient on Depakote ER 500 mg nightly) Again per the girlfriend it is very likely that the patient was not fully compliant. 4. Right foot Lisfranc fracture: Pain control and ? splint 5. Anemia: Hemoglobin stable at approx 10, status post 1 unit pRBC on 01/15. SCDs to lower extremities. On Reglan up to 10 mg IV q6 and proton pump inhibitors. Tolerating tube feedings so far. Patient's 1/2 sister to be called regarding consenting for blood transfusions and procedures. 7. Hypokalemia: Continue to replace potassium as needed, check labs daily especially while patient is on Lasix. Magnesium level wnl. On free water. Prophylaxis: SCDs for DVT prophylaxis, Protonix for GI prophylaxis Disposition: Still in ICU, re-intubated, sedated, trying to weaning off sedation. Family meeting 01/14 did confirm that patient is noncompliant with medication, unfortunately he does have significant behavioral issues including violent behavior. He is a bipolar that seems to be mostly manic most of the time and noncompliant with medications at all. Drug use is an issue. We will try to do our best to have the patient safely extubated soon but does not seem to be possible so far he he is more and more likely to need tracheostomy and PEG which the 1/2 sister understand and has made does understand that either way she will not be involved in the primary caregiving of patient and he will need to be placed at the time of discharge no matter what his condition is as long as he cannot take care of himself. Subjective 24 Hr Interval Summary Free Text/Dictation Patient back on propofol, agitated this morning. Labs within normal. Exam/Review of Systems Vital Signs Vitals Vital Signs Date Time Temp Pulse Resp B/P Pulse Ox O2 Delivery O2 Flow Rate FiO2 01/24/17 09:03 20 160/124 98 Mechanical Ventilator 01/24/17 08:30 96 01/24/17 08:00 99.7 01/24/17 08:00 30 Intake and Output 01/23/17 01/23/17 01/24/17 15:00 23:00 07:00 Intake Total 497.2 ml 534.961 ml 720.862 ml Output Total 310 ml 525 ml 450 ml Balance 187.2 ml 9.961 ml 270.862 ml Exam Constitutional: other (On sedation and still agitated, intubated) Respiratory: diminished breath sounds (Decreased breath sounds at the bases bilaterally), other (On mechanical ventilation) Cardiovascular: nl pulses, regular rate and rhythm Gastrointestinal: non-tender, soft Musculoskeletal: nl extremities to inspection, other (No edema, clubbing or cyanosis) Extremities: normal pulses Neurological: other (Agitated) Results Result Diagram: 01/24/17 0440 01/24/17 0439 Results 24 hrs Laboratory Tests Test 01/24/17 04:39 01/24/17 04:40 Sodium Level 144 Potassium Level 4.5 Chloride Level 104 Carbon Dioxide Level 29 Anion Gap 16 Blood Urea Nitrogen 11 Creatinine 0.69 Glucose Level 118 Calcium Level 9.1 Phosphorus Level 4.9 Magnesium Level 1.9 Total Bilirubin 0.1 L Direct Bilirubin 0.00 Indirect Bilirubin 0.1 Aspartate Amino Transf (AST/SGOT) 48 H Alanine Aminotransferase (ALT/SGPT) 61 Alkaline Phosphatase 231 H Total Protein 7.1 Albumin 3.6 Globulin 3.50 H Albumin/Globulin Ratio 1.02 White Blood Count 10.3 # Red Blood Count 3.68 L Hemoglobin 10.4 L Hematocrit 32.7 L Mean Corpuscular Volume 88.9 Mean Corpuscular Hemoglobin 28.3 L Mean Corpuscular Hemoglobin Concent 31.8 L Red Cell Distribution Width 14.1 Platelet Count 336 Mean Platelet Volume 11.7 H Neutrophils % 70.5 Lymphocytes % 13.5 L Monocytes % 9.5 Eosinophils % 5.4 Basophils % 0.8 Nucleated Red Blood Cells % 0.0 Neutrophils # 7.3 Lymphocytes # 1.4 Monocytes # 1.0 H Eosinophils # 0.6 H Basophils # 0.1 Nucleated Red Blood Cells # 0.0 Medications Medications Current Medications Acetaminophen (Tylenol Tab) 650 mg Q4H PRN PO pain/fever Last administered on 01/11/17t 07:46; Admin Dose 650 MG; Start 12/31/16 at 01:00 Hydralazine HCl (Apresoline) 25 mg Q6H PRN PO sbp>160; Start 12/31/16 at 01:00 Enalaprilat (Vasotec Iv) 1.25 mg Q6H PRN IV sbp>160; Start 12/31/16 at 01:00 Ondansetron HCl (Zofran Inj) 4 mg Q4H PRN IV nausea; Start 12/31/16 at 01:00 Hydralazine HCl (Apresoline) 10 mg Q4H PRN IV ELEVATED SYSTOLIC BP Last administered on 01/13/17 16:25; Admin Dose 10 MG; Start 12/31/16 at 05:30 Labetalol HCl (Labetalol) 10 mg Q4H PRN IV SBP GREATER THAN 160 Last administered on 01/10/17 22:33; Admin Dose 10 MG; Start 01/01/17 at 12:00 IV Flush (NS 10 ml) 10 ml PRN PRN IV IV PROTOCOL; Start 01/02/17 at 17:00 Lorazepam (Ativan) 2 mg Q2H PRN IV PRN Agitation. Last administered on 08:54; Admin Dose 2 MG; Start 01/04/17 at 09:00 Pantoprazole 40 mg 40 mg BID@06,18 IV Last administered on 01/24/17 06:02; Admin Dose 40 MG; Start 01/06/17 at 09:30 Propofol (Diprivan) 100 ml @ 3.537 mls/ hr Q12H IV Last administered on 07:12; Admin Dose 17.678 MLS/HR; Start 01/10/17 at 09:30 Metoclopramide HCl (Reglan) 10 mg Q6 IV Last administered on 01/24/17 06:02; Admin Dose 10 MG; Start 01/11/17 at 12:00 Valproate Sodium (Depakene Liquid Cup) 500 mg QHS NGT Last administered on 01/23 20:22; Admin Dose 500 MG; Start 01/11/17 at 21:00 Trazodone HCl (Desyrel) 150 mg HS PO Last administered on 01/23/17 20:22; Admin Dose 150 MG; Start 01/15/17 at 21:00 Quetiapine Fumarate 200 mg 200 mg QID NGT Last administered on 01/24/17 08:23 ; Admin Dose 200 MG; Start 01/18/17 at 13:00 Thiamine HCl/ Dextrose (Vitamin B1/D5W) 101 ml @ 202 mls/hr DAILY IV Last administered on 01/24/17 08:24; Admin Dose 202 MLS/HR; Start 01/18/17 at 13:30 Polyethylene Glycol (Miralax) 17 gm DAILY NGT Last administered on 01/24/17 08 :24; Admin Dose 17 GM; Start 01/19/17 at 10:00 Docusate Sodium 100 mg 100 mg BID PRN NGT CONSTIPATION; Start 01/19/17 at 10: 00 Fentanyl (Sublimaze) 100 ml @ 2.5 mls/hr TITRATE IV Last administered on 04:36; Admin Dose 5 MLS/HR; Start 01/19/17 at 13:00 Carbamazepine 400 mg 400 mg BID NGT Last administered on 01/24/17 08:24; Admin Dose 400 MG; Start 01/22/17 at 21:00 Lorazepam/Dextrose (Ativan/D5W) 100 ml @ 0 mls/hr TITRATE IV Last administered on 01/24/17 08:46; Admin Dose 10 MLS/HR; Start 01/22/17 at 13:00 Haloperidol (Haldol) 5 mg Q6 PRN IV AGITATION; Start 01/23/17 at 11:00 TRENT NEWMAN Jan 24, 2017 10:00
[2017-01-24] MEDS: ALTEPLASE (CATHFLO) 2 MG INJ CATHETER PRN ×2 (10:21→12:10)
[2017-01-24] MEDS: DOCUSATE SODIUM 10 MG/ML (10ML CUP) NGT PRN (12:02)
[2017-01-24] MEDS: VALPROIC ACID LIQUID CUP 250 MG/5 ML CUP NGT SCH ×2 (12:03→20:30)
--- NOTE | 2017-01-24 13:28 | CONS ---
Date/Time of Note Date/Time of Note DATE: 01/24/17 TIME: 13:25 Consult Date/Type/Reason Admit Date/Time Dec 31, 2016 at 00:30 Initial Consult Date 01/06/17 Type of Consultation: Pulm/CCM Ordering Provider: JEAN MARIE BRAGG MD Subjective Remains sedated on mechanical vent. Objective Vital Signs Date Time Temp Pulse Resp B/P Pulse Ox O2 Delivery O2 Flow Rate FiO2 01/24/17 12:30 84 20 109/72 99 Mechanical Ventilator 01/24/17 12:00 98.1 01/24/17 11:13 30 Intake and Output 01/23/17 01/23/17 01/24/17 15:00 23:00 07:00 Intake Total 497.2 ml 534.961 ml 720.862 ml Output Total 310 ml 525 ml 450 ml Balance 187.2 ml 9.961 ml 270.862 ml Exam HEENT: Neck supple; no JVD; no LAD; + ET tube CVS: RRR, S1 and S2 CHEST: Coarse BS ABD: Soft, NT, + BS EXT: No c/c; + edema Results/Medications Result Diagram: 01/24/17 0440 01/24/17 0439 Results 24 hrs Laboratory Tests Test 01/24/17 04:39 01/24/17 04:40 Sodium Level 144 Potassium Level 4.5 Chloride Level 104 Carbon Dioxide Level 29 Anion Gap 16 Blood Urea Nitrogen 11 Creatinine 0.69 Glucose Level 118 Calcium Level 9.1 Phosphorus Level 4.9 Magnesium Level 1.9 Total Bilirubin 0.1 L Direct Bilirubin 0.00 Indirect Bilirubin 0.1 Aspartate Amino Transf (AST/SGOT) 48 H Alanine Aminotransferase (ALT/SGPT) 61 Alkaline Phosphatase 231 H Total Protein 7.1 Albumin 3.6 Globulin 3.50 H Albumin/Globulin Ratio 1.02 White Blood Count 10.3 # Red Blood Count 3.68 L Hemoglobin 10.4 L Hematocrit 32.7 L Mean Corpuscular Volume 88.9 Mean Corpuscular Hemoglobin 28.3 L Mean Corpuscular Hemoglobin Concent 31.8 L Red Cell Distribution Width 14.1 Platelet Count 336 Mean Platelet Volume 11.7 H Neutrophils % 70.5 Lymphocytes % 13.5 L Monocytes % 9.5 Eosinophils % 5.4 Basophils % 0.8 Nucleated Red Blood Cells % 0.0 Neutrophils # 7.3 Lymphocytes # 1.4 Monocytes # 1.0 H Eosinophils # 0.6 H Basophils # 0.1 Nucleated Red Blood Cells # 0.0 Medications Current Medications Acetaminophen (Tylenol Tab) 650 mg Q4H PRN PO pain/fever Last administered on 01/11/17 07:46; Admin Dose 650 MG; Start 12/31/16 at 01:00 Hydralazine HCl (Apresoline) 25 mg Q6H PRN PO sbp>160; Start 12/31/16 at 01:00 Enalaprilat (Vasotec Iv) 1.25 mg Q6H PRN IV sbp>160; Start 12/31/16 at 01:00 Ondansetron HCl (Zofran Inj) 4 mg Q4H PRN IV nausea; Start 12/31/16 at 01:00 Hydralazine HCl (Apresoline) 10 mg Q4H PRN IV ELEVATED SYSTOLIC BP Last administered on 01/13/17 16:25; Admin Dose 10 MG; Start 12/31/16 at 05:30 Labetalol HCl (Labetalol) 10 mg Q4H PRN IV SBP GREATER THAN 160 Last administered on 01/10/17 22:33; Admin Dose 10 MG; Start 01/01/17 at 12:00 IV Flush (NS 10 ml) 10 ml PRN PRN IV IV PROTOCOL; Start 01/02/17 at 17:00 Lorazepam (Ativan) 2 mg Q2H PRN IV PRN Agitation. Last administered on 08:54; Admin Dose 2 MG; Start 01/04/17 at 09:00 Pantoprazole 40 mg 40 mg BID@06,18 IV Last administered on 01/24/17 06:02; Admin Dose 40 MG; Start 01/06/17 at 09:30 Propofol (Diprivan) 100 ml @ 3.537 mls/ hr Q12H IV Last administered on 11:06; Admin Dose 24.752 MLS/HR; Start 01/10/17 at 09:30 Metoclopramide HCl (Reglan) 10 mg Q6 IV Last administered on 01/24/17 12:03; Admin Dose 10 MG; Start 01/11/17 at 12:00 Trazodone HCl (Desyrel) 150 mg HS PO Last administered on 01/23/17 20:22; Admin Dose 150 MG; Start 01/15/17 at 21:00 Quetiapine Fumarate 200 mg 200 mg QID NGT Last administered on 01/24/17 12:03 ; Admin Dose 200 MG; Start 01/18/17 at 13:00 Thiamine HCl/ Dextrose (Vitamin B1/D5W) 101 ml @ 202 mls/hr DAILY IV Last administered on 01/24/17 08:24; Admin Dose 202 MLS/HR; Start 01/18/17 at 13:30 Polyethylene Glycol (Miralax) 17 gm DAILY NGT Last administered on 01/24/17 08 :24; Admin Dose 17 GM; Start 01/19/17 at 10:00 Docusate Sodium 100 mg 100 mg BID PRN NGT CONSTIPATION Last administered on 12:02; Admin Dose 100 MG; Start 01/19/17 at 10:00 Fentanyl (Sublimaze) 100 ml @ 2.5 mls/hr TITRATE IV Last administered on 04:36; Admin Dose 5 MLS/HR; Start 01/19/17 at 13:00 Carbamazepine 400 mg 400 mg BID NGT Last administered on 01/24/17 08:24; Admin Dose 400 MG; Start 01/22/17 at 21:00 Lorazepam/Dextrose (Ativan/D5W) 100 ml @ 0 mls/hr TITRATE IV Last administered on 01/24/17 08:46; Admin Dose 10 MLS/HR; Start 01/22/17 at 13:00 Haloperidol (Haldol) 5 mg Q6 PRN IV AGITATION; Start 01/23/17 at 11:00 Valproate Sodium (Depakene Liquid Cup) 250 mg TID NGT Last administered on 01/24 12:03; Admin Dose 250 MG; Start 01/24/17 at 13:00 Assessment/Plan Additional Assessment/Plan IMP: 1. 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 Acute Lung Injury/ARDS 3. History of drug overdose 4. 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 5. ALEX 6. Anemia 7. Persistent need for propofol concerning for possible pancreatitis elevated triglyceride levels. RECS: 1. Would proceed with tracheostomy as that significant diminish sedative needs 2. Continue current vent settings for now 3. Tube feeds/Free H20 4. Minimize sedatives as tolerated 5. Continue antipsychotics 35 min cc time JUANA SANCHEZ MD Jan 24, 2017 13:28
[2017-01-24] MEDS: LANSOPRAZOLE 30 MG CAP NGT SCH (17:04)
[2017-01-24] MEDS: traZODone 100 MG TAB PO SCH (20:30)
[2017-01-25] VITALS (34 sets, daily range): BP systolic 104–185; BP diastolic 58–136; PULSE 87–123; RESP 18–39
[2017-01-25] MEDS: PROPOFOL 100 ML IV SCH ×4 (01:30→15:02)
[2017-01-25] MEDS: ALBUTEROL 18 GM INHALER INH SCH ×4 (01:35→19:40)
[2017-01-25] MEDS: IPRATROPIUM (HFA) 12.9 GM INHALER INH SCH ×4 (01:35→19:40)
[2017-01-25] MEDS: LORAZEPAM (MDV) 100 MG in DEXTROSE 5% 50 ML IV SCH ×3 (04:35→22:54)
[2017-01-25 05:11] LABS: AADO2 Arterial 89.4 mmHg (7.0-24.0); Arterial Base Excess 1.7 mmol/L (-3.0-3); Arterial COHb 0.2 % (0.0-3.0); Arterial Fraction of Oxyhgb 94.4 % (93.0-99.0); Arterial HCO3 26.3 mmol/L (22.0-26.0); Arterial MetHb 0.2 % (0.0-1.5); Arterial Total Hemglobin 11.2 g/dl (12.0-18.0); MODE VENT - AC
[2017-01-25] MEDS: LANSOPRAZOLE 30 MG CAP NGT SCH ×2 (05:49→18:00)
[2017-01-25] MEDS: METOCLOPRAMIDE 10 MG INJ IV SCH ×4 (05:49→23:38)
[2017-01-25 05:53] LABS: BASOPHIL # 0.1 10^3/ul (0.0-0.1); EOSINOPHILS # 0.7 10^3/ul (0.0-0.5); EOSINOPHILS % 9.4 % (0.0-7.0); HEMATOCRIT 30.4 % (42.0-52.0); HEMOGLOBIN 9.3 g/dl (14.0-18.0); LYMPHOCYTES # 0.9 10^3/ul (0.8-2.9); LYMPHOCYTES % 12.1 % (15.0-51.0); MEAN CORPUSCULAR HEMOGLOBIN 27.5 pg (29.0-33.0); MEAN CORPUSCULAR HGB CONC 30.6 g/dl (32.0-37.0); MEAN CORPUSCULAR VOLUME 89.9 fl (82.0-101.0); MEAN PLATELET VOLUME 11.9 fl (7.4-10.4); MONOCYTE # 0.6 10^3/ul (0.3-0.9); MONOCYTES % 7.6 % (0.0-11.0); NEUTROPHIL # 5.4 10^3/ul (1.6-7.5); NEUTROPHILS % 69.5 % (39.0-77.0); PLATELET COUNT 313 10^3/UL (140-415); RED BLOOD COUNT 3.38 10^6/ul (4.70-6.10); RED CELL DISTRIBUTION WIDTH 14.1 % (11.5-14.5); WHITE BLOOD COUNT 7.8 10^3/ul (4.8-10.8)
[2017-01-25 06:14] LABS: CALCIUM 8.7 mg/dl (8.4-10.2); CREATININE 0.66 mg/dl (0.61-1.24); POTASSIUM 4.2 mmol/L (3.5-5.1)
--- NOTE | 2017-01-25 07:35 | RADRPT ---
PROCEDURE: XR Chest. CLINICAL INDICATION: Shortness of breath. TECHNIQUE: Single frontal view. COMPARISON: 01/21/2017. FINDINGS: The endotracheal tube, nasogastric tube, and right arm PICC line remain in satisfactory position. At electasis at the lung bases is unchanged. The lungs are otherwise clear. The heart size is normal. There is no pleural effusion. There is no pneumothorax. IMPRESSION: 1. Tubes and lines in satisfactory position. 2. Atelectasis at the lung bases. 3. No change from the 01/21/2017 chest radiograph. RPTAT: QQ .Jerry Arellano MD, MD Date Time Electronically viewed and signed by .Jerry Arellano MD, on 01/25/2017 07:34 .R/
[2017-01-25] MEDS: THIAMINE IV SCH (08:30)
[2017-01-25] MEDS: QUETIAPINE 100 MG TAB NGT SCH ×4 (08:30→21:00)
[2017-01-25] MEDS: DEXTROSE 5% IV SCH (08:30)
[2017-01-25] MEDS: POLYETHYLENE GLYCOL 17 GM PACKET NGT SCH (08:30)
[2017-01-25] MEDS: VALPROIC ACID LIQUID CUP 250 MG/5 ML CUP NGT SCH ×3 (08:30→21:00)
[2017-01-25] MEDS: carBAMAZepine SUSP 20 MG/ML POSYG NGT SCH ×2 (08:31→21:00)
--- NOTE | 2017-01-25 09:59 | CONS ---
Date/Time of Note Date/Time of Note DATE: 01/25/17 TIME: 09:57 Consult Date/Type/Reason Admit Date/Time Dec 31, 2016 at 00:30 Initial Consult Date 12/31/16 Type of Consultation: Pulm/CCM Ordering Provider: JEAN MARIE BRAGG MD Subjective Patient continues multiple sedatives including propofol at 30, Ativan 10 mg, fentanyl 30 mcg. Still with significant agitation. Objective Vital Signs Date Time Temp Pulse Resp B/P Pulse Ox O2 Delivery O2 Flow Rate FiO2 01/25/17 09:31 111 30 100 01/25/17 09:00 162/105 01/25/17 08:00 30 01/25/17 08:00 Mechanical Ventilator 01/25/17 07:00 99.1 Intake and Output 01/24/17 01/24/17 01/25/17 15:00 23:00 07:00 Intake Total 952.064 ml 716.217 ml 678.7 ml Output Total 425 ml 450 ml 430 ml Balance 527.064 ml 266.217 ml 248.7 ml Results/Medications Result Diagram: 01/25/17 0519 01/25/17 0519 Results 24 hrs Laboratory Tests Test 01/25/17 05:00 01/25/17 05:19 Blood Gas Specimen Source Blood arterial Arterial Blood Date Drawn 01/25/2017 5:02:48 AM Arterial Blood pH (Temp corrected) 7.422 Arterial Blood pCO2 (Temp correct) 41.3 Arterial Blood pO2 (Temp corrected) 76.0 L Arterial Blood HCO3 26.3 H Arterial Blood Base Excess 1.7 Arterial Blood Oxygen Saturation 94.8 L Juancho Test N/A Arterial Blood Gas Puncture Site LB Arterial Blood Carboxyhemoglobin 0.2 Arterial Blood Methemoglobin 0.2 Blood Gas A-a O2 Differential 89.4 H Oxyhemoglobin Percent 94.4 Total Hemoglobin 11.2 L Blood Gas Temperature 37.0 Blood Gas Respiration Rate 20.0 Blood Gas Actual Respiration Rate 22 Blood Gas Modality VENT - AC FiO2 30.0 Blood Gas Tidal Volume 500.0 Blood Gas Low PEEP Setting 7.0 Blood Gas Notified Whom MH Blood Gas Notified Time 01/25/2017 5:11:27 AM White Blood Count 7.8 # Red Blood Count 3.38 L Hemoglobin 9.3 L Hematocrit 30.4 L Mean Corpuscular Volume 89.9 Mean Corpuscular Hemoglobin 27.5 L Mean Corpuscular Hemoglobin Concent 30.6 L Red Cell Distribution Width 14.1 Platelet Count 313 Mean Platelet Volume 11.9 H Neutrophils % 69.5 Lymphocytes % 12.1 L Monocytes % 7.6 Eosinophils % 9.4 H Basophils % 1.0 Nucleated Red Blood Cells % 0.0 Neutrophils # 5.4 Lymphocytes # 0.9 Monocytes # 0.6 Eosinophils # 0.7 H Basophils # 0.1 Nucleated Red Blood Cells # 0.0 Sodium Level 144 Potassium Level 4.2 Chloride Level 104 Carbon Dioxide Level 29 Anion Gap 15 Blood Urea Nitrogen 12 Creatinine 0.66 Glucose Level 116 Lactic Acid Level 1.0 Calcium Level 8.7 Magnesium Level 1.8 Medications Current Medications Acetaminophen (Tylenol Tab) 650 mg Q4H PRN PO pain/fever Last administered on 01/11/17 07:46; Admin Dose 650 MG; Start 12/31/16 at 01:00 Hydralazine HCl (Apresoline) 25 mg Q6H PRN PO sbp>160; Start 12/31/16 at 01:00 Enalaprilat (Vasotec Iv) 1.25 mg Q6H PRN IV sbp>160; Start 12/31/16 at 01:00 Ondansetron HCl (Zofran Inj) 4 mg Q4H PRN IV nausea; Start 12/31/16 at 01:00 Hydralazine HCl (Apresoline) 10 mg Q4H PRN IV ELEVATED SYSTOLIC BP Last administered on 01/13/17 16:25; Admin Dose 10 MG; Start 12/31/16 at 05:30 Labetalol HCl (Labetalol) 10 mg Q4H PRN IV SBP GREATER THAN 160 Last administered on 01/10/17 22:33; Admin Dose 10 MG; Start 01/01/17 at 12:00 IV Flush (NS 10 ml) 10 ml PRN PRN IV IV PROTOCOL; Start 01/02/17 at 17:00 Lorazepam 2 mg 2 mg Q2H PRN IV PRN Agitation. Last administered on 01/22/17 08 :54; Admin Dose 2 MG; Start 01/04/17 at 09:00 Propofol (Diprivan) 100 ml @ 3.537 mls/ hr Q12H IV Last administered on 09:47; Admin Dose 21.222 MLS/HR; Start 01/10/17 at 09:30 Metoclopramide HCl (Reglan) 10 mg Q6 IV Last administered on 01/25/17 05:49; Admin Dose 10 MG; Start 01/11/17 at 12:00 Trazodone HCl (Desyrel) 150 mg HS PO Last administered on 01/24/17 20:30; Admin Dose 150 MG; Start 01/15/17 at 21:00 Quetiapine Fumarate 200 mg 200 mg QID NGT Last administered on 01/25/17 08:30 ; Admin Dose 200 MG; Start 01/18/17 at 13:00 Thiamine HCl/ Dextrose (Vitamin B1/D5W) 101 ml @ 202 mls/hr DAILY IV Last administered on 01/25/17 08:30; Admin Dose 202 MLS/HR; Start 01/18/17 at 13:30 Polyethylene Glycol (Miralax) 17 gm DAILY NGT Last administered on 01/25/17 08 :30; Admin Dose 17 GM; Start 01/19/17 at 10:00 Docusate Sodium 100 mg 100 mg BID PRN NGT CONSTIPATION Last administered on 12:02; Admin Dose 100 MG; Start 01/19/17 at 10:00 Fentanyl (Sublimaze) 100 ml @ 2.5 mls/hr TITRATE IV Last administered on 21:58; Admin Dose 5 MLS/HR; Start 01/19/17 at 13:00 Carbamazepine 400 mg 400 mg BID NGT Last administered on 01/25/17 08:31; Admin Dose 400 MG; Start 01/22/17 at 21:00 Lorazepam/Dextrose (Ativan/D5W) 100 ml @ 0 mls/hr TITRATE IV Last administered on 01/25/17 04:35; Admin Dose 10 MLS/HR; Start 01/22/17 at 13:00 Haloperidol (Haldol) 5 mg Q6 PRN IV AGITATION; Start 01/23/17 at 11:00 Valproate Sodium (Depakene Liquid Cup) 250 mg TID NGT Last administered on 01/25 08:30; Admin Dose 250 MG; Start 01/24/17 at 13:00 Lansoprazole (Prevacid) 30 mg BID@06,18 NGT Last administered on 01/25/17t 05: 49; Admin Dose 30 MG; Start 01/24/17 at 18:00 Assessment/Plan Chief Complaint/Hosp Course IMP: 1. 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 Acute Lung Injury/ARDS 3. History of drug overdose 4. 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 5. ALEX 6. Anemia 7. Persistent need for propofol concerning for possible pancreatitis elevated triglyceride levels. RECS: 1. Would proceed with tracheostomy as that significant diminish sedative needs 2. Continue current vent settings for now 3. Tube feeds/Free H20 4. Minimize sedatives as tolerated 5. Continue antipsychotics 35 min cc time morning Problems: BRIANNA S[facility]VEDRA [facility], [facility] Jan 25, 2017 09:59
--- NOTE | 2017-01-25 10:31 | PN ---
Date/Time of Note Date/Time of Note DATE: 01/25/17 TIME: 10:19 Assessment/Plan VTE Prophylaxis VTE Prophylaxis Intervention: SCD's Lines/Catheters IV Catheter Type (from Nrs): PICC Line Central line still needed: Yes (For IV access) Urinary Cath still in place: Yes Reason Cath still needed: other (indicate) (Intubated and sedated) Assessment/Plan Assessment/Plan 46 yo male with: 1. Severe encephalopathy 2ry to drug abuse likely Bath salts and/or synthetic marijuana and also bipolar disorder with violent behaviors and noncompliance with medications per previous psychiatry notes. No other clear etiology so far of encephalopathic, neurology on board, CT head 2 since admission are both wnl, EEG x2 showing encephalopathy, MRI brain wnl. Patient still with episodes of agitation and requiring multiple sedating agents. Reconciliation and titration of her psychiatric medications have been done, so far still unable to successfully de-escalate on the sedation. Patient switched to Ativan drip, and back on propofol. Still on fentanyl drip On Haldol too prn. Continue IV thiamine. 2. Acute respiratory Failure 2ry to severe Encephalopathy from Drug overuse, intubated, sedated and paralysed. Patient was briefly extubated last week for 2 -1/2 hours but had to be reintubated due to inability to protect his airway, of note he was still on sedating agents. WBC within normal now and chest x-ray has been better but with compressive atelectasis. Still on FiO2 of 30% and PEEP of 7. Still on fentanyl, Haldol prn, and Ativan gtt. Patient has been restarted on Seroquel and Tegretol dosing adjusted to outpatient dosing. Trazodone resumed at night. 3. Bipolar disorder: Likely noncompliant with psychiatric medications. Medication resumed and adjusted to outpatient dosing based on the note from psychiatry 5 days prior to admission that were able to obtain last Wednesday, patient Seroquel can even be titrated higher, according to the notes he was on Seroquel XR, increased to 1000 mg nightly per the latest note. Now on Seroquel to 200 mg QID. Increased carbamazepine to 400 mg twice daily. Continue Haldol prn and on Ativan drip. Changed Depakene to 250 TID (patient on Depakote ER 500 mg nightly) Again per the girlfriend it is very likely that the patient was not fully compliant. 4. Right foot Lisfranc fracture: Pain control and ? splint 5. Anemia: Hemoglobin stable at approx 10, status post 1 unit pRBC on 01/15. SCDs to lower extremities. On Reglan up to 10 mg IV q6 and proton pump inhibitors. Tolerating tube feedings so far. Patient's 1/2 sister to be called regarding consenting for blood transfusions and procedures. Prophylaxis: SCDs for DVT prophylaxis, Protonix for GI prophylaxis Disposition: Still in ICU, re-intubated, sedated, so far unable to weaning off sedation. Family meeting 01/14 did confirm that patient is noncompliant with medication, unfortunately he does have significant behavioral issues including violent behavior. He is a bipolar that seems to be mostly manic most of the time and noncompliant with medications at all. Drug use is an issue. We will try to do our best to have the patient safely extubated soon but does not seem to be possible so far he needs tracheostomy and PEG which the 1/2 sister understand and has made does understand that either way she will not be involved in the primary caregiving of patient and he will need to be placed at the time of discharge no matter what his condition is as long as he cannot take care of himself. Subjective 24 Hr Interval Summary Free Text/Dictation Patient's mental status is unchanged, despite multiple switching sedating agents , when off propofol he is significantly agitated with increased respiratory rates. After multiple discussion with the pulmonary over the weekend also, it becomes unfortunately evident that the patient will need tracheostomy and PEG tube placement. I have talked to Dr. soria, again today, he deems that the patient is non-transferable for the procedure, he will contact his insurance to request for him to have the procedures done here at [facility] prior to transfer. Exam/Review of Systems Vital Signs Vitals Vital Signs Date Time Temp Pulse Resp B/P Pulse Ox O2 Delivery O2 Flow Rate FiO2 01/25/17 09:31 111 30 100 01/25/17 09:00 162/105 01/25/17 08:00 30 01/25/17 08:00 Mechanical Ventilator 01/25/17 07:00 99.1 Intake and Output 11/5/17 11/5/17 11/6/17 14:59 22:59 06:59 Intake Total 966.212 ml 702.047 ml 711.4 ml Output Total 425 ml 450 ml 410 ml Balance 541.212 ml 252.047 ml 301.4 ml Exam Constitutional: other (Intubated and sedated) Respiratory: diminished breath sounds (Bases bilaterally), other (On mechanical ventilation was sedated and intubated) Cardiovascular: nl pulses, regular rate and rhythm Gastrointestinal: non-tender, other (Tolerating tube feeds), soft Musculoskeletal: nl extremities to inspection Extremities: normal pulses, other (No edema clubbing or cyanosis) Neurological: other (Intubated and sedated, still agitated.) Results Result Diagram: 01/25/1751801/25/1719 Results 24 hrs Laboratory Tests Test 01/25/17 05:00 01/25/17 05:19 Blood Gas Specimen Source Blood arterial Arterial Blood Date Drawn 01/25/2017 5:02:48 AM Arterial Blood pH (Temp corrected) 7.422 Arterial Blood pCO2 (Temp correct) 41.3 Arterial Blood pO2 (Temp corrected) 76.0 L Arterial Blood HCO3 26.3 H Arterial Blood Base Excess 1.7 Arterial Blood Oxygen Saturation 94.8 L Ju[place]o Test N/A Arterial Blood Gas Puncture Site LB Arterial Blood Carboxyhemoglobin 0.2 Arterial Blood Methemoglobin 0.2 Blood Gas A-a O2 Differential 89.4 H Oxyhemoglobin Percent 94.4 Total Hemoglobin 11.2 L Blood Gas Temperature 37.0 Blood Gas Respiration Rate 20.0 Blood Gas Actual Respiration Rate 22 Blood Gas Modality VENT - AC FiO2 30.0 Blood Gas Tidal Volume 500.0 Blood Gas Low PEEP Setting 7.0 Blood Gas Notified Whom Blood Gas Notified Time 01/25/2017 5:11:27 AM White Blood Count 7.8 # Red Blood Count 3.38 L Hemoglobin 9.3 L Hematocrit 30.4 L Mean Corpuscular Volume 89.9 Mean Corpuscular Hemoglobin 27.5 L Mean Corpuscular Hemoglobin Concent 30.6 L Red Cell Distribution Width 14.1 Platelet Count 313 Mean Platelet Volume 11.9 H Neutrophils % 69.5 Lymphocytes % 12.1 L Monocytes % 7.6 Eosinophils % 9.4 H Basophils % 1.0 Nucleated Red Blood Cells % 0.0 Neutrophils # 5.4 Lymphocytes # 0.9 Monocytes # 0.6 Eosinophils # 0.7 H Basophils # 0.1 Nucleated Red Blood Cells # 0.0 Sodium Level 144 Potassium Level 4.2 Chloride Level 104 Carbon Dioxide Level 29 Anion Gap 15 Blood Urea Nitrogen 12 Creatinine 0.66 Glucose Level 116 Lactic Acid Level 1.0 Calcium Level 8.7 Magnesium Level 1.8 Imaging Free Text/Dictation PROCEDURE: XR Chest. CLINICAL INDICATION: Shortness of breath. TECHNIQUE: Single frontal view. COMPARISON: 01/21/2017. FINDINGS: The endotracheal tube, nasogastric tube, and right arm PICC line remain in satisfactory position. Atelectasis at the lung bases is unchanged. The lungs are otherwise clear. The heart size is normal. There is no pleural effusion. There is no pneumothorax. IMPRESSION: 1. Tubes and lines in satisfactory position. 2. Atelectasis at the lung bases. 3. No change from the 01/21/2017 chest radiograph. RPTAT: QQ .Jerry Arellano MD, MD Date Time Electronically viewed and signed by .Jerry Arellano MD, MD on 01/25/2017 07:34 Medications Medications Current Medications Acetaminophen (Tylenol Tab) 650 mg Q4H PRN PO pain/fever Last administered on 01/11/17 07:46; Admin Dose 650 MG; Start 12/31/16 at 01:00 Hydralazine HCl (Apresoline) 25 mg Q6H PRN PO sbp>160; Start 12/31/16 at 01:00 Enalaprilat (Vasotec Iv) 1.25 mg Q6H PRN IV sbp>160; Start 12/31/16 at 01:00 Ondansetron HCl (Zofran Inj) 4 mg Q4H PRN IV nausea; Start 12/31/16 at 01:00 Hydralazine HCl (Apresoline) 10 mg Q4H PRN IV ELEVATED SYSTOLIC BP Last administered on 01/13/17 16:25; Admin Dose 10 MG; Start 12/31/16 at 05:30 Labetalol HCl (Labetalol) 10 mg Q4H PRN IV SBP GREATER THAN 160 Last administered on 01/10/17 22:33; Admin Dose 10 MG; Start 01/01/17 at 12:00 IV Flush (NS 10 ml) 10 ml PRN PRN IV IV PROTOCOL; Start 01/02/17 at 17:00 Lorazepam 2 mg 2 mg Q2H PRN IV PRN Agitation. Last administered on 01/22/17 08 :54; Admin Dose 2 MG; Start 01/04/17 at 09:00 Propofol (Diprivan) 100 ml @ 3.537 mls/ hr Q12H IV Last administered on 09:47; Admin Dose 21.222 MLS/HR; Start 01/10/17 at 09:30 Metoclopramide HCl (Reglan) 10 mg Q6 IV Last administered on 01/25/17 05:49; Admin Dose 10 MG; Start 01/11/17 at 12:00 Trazodone HCl (Desyrel) 150 mg HS PO Last administered on 01/24/17 20:30; Admin Dose 150 MG; Start 01/15/17 at 21:00 Quetiapine Fumarate 200 mg 200 mg QID NGT Last administered on 01/25/17 08:30 ; Admin Dose 200 MG; Start 01/18/17 at 13:00 Thiamine HCl/ Dextrose (Vitamin B1/D5W) 101 ml @ 202 mls/hr DAILY IV Last administered on 01/25/17 08:30; Admin Dose 202 MLS/HR; Start 01/18/17 at 13:30 Polyethylene Glycol (Miralax) 17 gm DAILY NGT Last administered on 01/25/17 08 :30; Admin Dose 17 GM; Start 01/19/17 at 10:00 Docusate Sodium 100 mg 100 mg BID PRN NGT CONSTIPATION Last administered on 12:02; Admin Dose 100 MG; Start 01/19/17 at 10:00 Fentanyl (Sublimaze) 100 ml @ 2.5 mls/hr TITRATE IV Last administered on 21:58; Admin Dose 5 MLS/HR; Start 01/19/17 at 13:00 Carbamazepine 400 mg 400 mg BID NGT Last administered on 01/25/17 08:31; Admin Dose 400 MG; Start 01/22/17 at 21:00 Lorazepam/Dextrose (Ativan/D5W) 100 ml @ 0 mls/hr TITRATE IV Last administered on 01/25/17 04:35; Admin Dose 10 MLS/HR; Start 01/22/17 at 13:00 Haloperidol (Haldol) 5 mg Q6 PRN IV AGITATION; Start 01/23/17 at 11:00 Valproate Sodium (Depakene Liquid Cup) 250 mg TID NGT Last administered on 01/25 08:30; Admin Dose 250 MG; Start 01/24/17 at 13:00 Lansoprazole (Prevacid) 30 mg BID@06,18 NGT Last administered on 01/25/17 05: 49; Admin Dose 30 MG; Start 01/24/17 at 18:00 TRENT NEWMAN Jan 25, 2017 10:29
[2017-01-25] MEDS ORDERED: DIPHENHYDRAMINE 50 MG INJ IM SCH (11:00)
[2017-01-25] MEDS: DOCUSATE SODIUM 10 MG/ML (10ML CUP) NGT PRN (11:34)
[2017-01-25] MEDS: FENTAnyl (DRIP) 1000 mcg/100mL 100 ML IV SCH (16:36)
[2017-01-25] MEDS: DIPHENHYDRAMINE 50 MG INJ IV SCH ×2 (17:00→22:54)
[2017-01-25] MEDS: DOCUSATE SODIUM 10 MG/ML (10ML CUP) NGT SCH (21:00)
[2017-01-25] MEDS: traZODone 100 MG TAB PO SCH (21:00)
[2017-01-26] VITALS (40 sets, daily range): BP systolic 97–153; BP diastolic 58–116; PULSE 91–127; RESP 16–37
[2017-01-26] MEDS: PROPOFOL 100 ML IV SCH ×2 (00:19→05:11)
--- NOTE | 2017-01-26 01:15 | CONS ---
DATE OF ADMISSION: 12/31/2016 DATE OF CONSULTATION: REASON FOR CONSULTATION: Evaluation for tracheostomy. HISTORY OF PRESENT ILLNESS: This is an unfortunate 46-year-old male admitted to [facility] because of alteration in mental status and subsequently had to be intubated. Was found to have severe encephalopathy secondary to drug abuse. Currently unable to come off the ventilator se condary to altered mental status. Will be needing chronic ventilatory support. PAST MEDICAL HISTORY: Significant for osteoarthritis, psychiatric disease. PAST SURGICAL HISTORY: None. ALLERGIES: NONE. SOCIAL HISTORY: Positive for history of drug use. PHYSICAL EXAMINATION: VITAL SIGNS: Blood pressure is 159/23, pulse is 121, respiration is 36, saturation is 100% on FIO2 of 30%. CARDIOVASCULAR: Normal S1, S2. LUNGS: Clear. ABDOMEN: Soft. EXTREMITIES: Warm. LABORATORY VALUES: Hemoglobin 9.3, white count 7.8, platelet count 313, normal coagulation factors and a creatinine of 0.66. IMPRESSION: Respiratory failure. RECOMMENDATIONS: We will proceed with the placement of a tracheostomy. Discussed with the nursing staff. Dictated By: JOSE VALLADARES/SHANELLE Conf#: [id number] DID#: [id number]
[2017-01-26] MEDS: ALBUTEROL 18 GM INHALER INH SCH ×4 (02:10→20:04)
[2017-01-26] MEDS: IPRATROPIUM (HFA) 12.9 GM INHALER INH SCH ×4 (02:10→20:04)
[2017-01-26 05:21] LABS: BASOPHIL # 0.1 10^3/ul (0.0-0.1); EOSINOPHILS # 0.7 10^3/ul (0.0-0.5); EOSINOPHILS % 8.3 % (0.0-7.0); HEMATOCRIT 32.2 % (42.0-52.0); HEMOGLOBIN 10.2 g/dl (14.0-18.0); LYMPHOCYTES # 1.4 10^3/ul (0.8-2.9); LYMPHOCYTES % 15.5 % (15.0-51.0); MEAN CORPUSCULAR HEMOGLOBIN 28.3 pg (29.0-33.0); MEAN CORPUSCULAR HGB CONC 31.7 g/dl (32.0-37.0); MEAN CORPUSCULAR VOLUME 89.4 fl (82.0-101.0); MEAN PLATELET VOLUME 11.8 fl (7.4-10.4); MONOCYTE # 0.8 10^3/ul (0.3-0.9); MONOCYTES % 9.5 % (0.0-11.0); NEUTROPHIL # 5.8 10^3/ul (1.6-7.5); NEUTROPHILS % 65.2 % (39.0-77.0); PLATELET COUNT 335 10^3/UL (140-415); WHITE BLOOD COUNT 8.9 10^3/ul (4.8-10.8)
[2017-01-26] MEDS: METOCLOPRAMIDE 10 MG INJ IV SCH ×4 (05:41→23:32)
[2017-01-26] MEDS: LANSOPRAZOLE 30 MG CAP NGT SCH ×2 (05:41→16:57)
[2017-01-26] MEDS: DIPHENHYDRAMINE 50 MG INJ IV SCH ×4 (05:41→23:31)
[2017-01-26 05:42] LABS: CALCIUM 9.1 mg/dl (8.4-10.2); CREATININE 0.73 mg/dl (0.61-1.24); POTASSIUM 4.2 mmol/L (3.5-5.1)
[2017-01-26] MEDS: DOCUSATE SODIUM 10 MG/ML (10ML CUP) NGT SCH ×2 (07:47→21:49)
[2017-01-26] MEDS: THIAMINE IV SCH (07:48)
[2017-01-26] MEDS: VALPROIC ACID LIQUID CUP 250 MG/5 ML CUP NGT SCH ×3 (07:48→21:49)
[2017-01-26] MEDS: POLYETHYLENE GLYCOL 17 GM PACKET NGT SCH (07:48)
[2017-01-26] MEDS: DEXTROSE 5% IV SCH (07:48)
[2017-01-26] MEDS: QUETIAPINE 100 MG TAB NGT SCH ×4 (07:48→21:50)
[2017-01-26] MEDS: HALOPERIDOL 5 MG INJ IV PRN ×3 (07:49→23:32)
[2017-01-26] MEDS: carBAMAZepine SUSP 20 MG/ML POSYG NGT SCH ×2 (07:54→21:50)
[2017-01-26] MEDS: LORAZEPAM (MDV) 100 MG in DEXTROSE 5% 50 ML IV SCH (08:32)
[2017-01-26] MEDS: FENTAnyl (DRIP) 1000 mcg/100mL 100 ML IV SCH ×2 (09:12→21:53)
--- NOTE | 2017-01-26 09:54 | CONS ---
Date/Time of Note Date/Time of Note DATE: 01/26/17 TIME: 09:53 Consult Date/Type/Reason Admit Date/Time Dec 31, 2016 at 00:30 Initial Consult Date 12/31/16 Type of Consultation: Pulm/CCM Ordering Provider: JEAN MARIE BRAGG MD Subjective Significant agitation with decrease propofol. Unable to tolerate being off propofol at present. Objective Vital Signs Date Time Temp Pulse Resp B/P Pulse Ox O2 Delivery O2 Flow Rate FiO2 01/26/17 08:00 107 28 150/92 97 Mechanical Ventilator 01/26/17 04:00 98.3 01/26/17 00:00 30 Intake and Output 01/25/17 01/25/17 01/26/17 15:00 23:00 07:00 Intake Total 755.4 ml 509.5 ml 804.648 ml Output Total 440 ml 365 ml 490 ml Balance 315.4 ml 144.5 ml 314.648 ml Exam GENERAL: Well-nourished well-developed gentleman orally intubated on mechanical ventilation VITAL SIGNS: see below. HEENT: Pupils equal, round, and reactive to light. CARDIAC: S1, S2, 1/6 systolic ejection murmur CHEST: Diminished air entry bilaterally. ABDOMEN: Mildly distended. Bowel sounds present no guarding or rebound EXTREMITIES: No cyanosis, clubbing edema +1 NEUROLOGIC: Generalized weakness Results/Medications Result Diagram: 01/26/17 0430 01/26/17 0430 Results 24 hrs Laboratory Tests Test 01/26/17 04:30 White Blood Count 8.9 Red Blood Count 3.60 L Hemoglobin 10.2 L Hematocrit 32.2 L Mean Corpuscular Volume 89.4 Mean Corpuscular Hemoglobin 28.3 L Mean Corpuscular Hemoglobin Concent 31.7 L Red Cell Distribution Width 14.0 Platelet Count 335 Mean Platelet Volume 11.8 H Neutrophils % 65.2 Lymphocytes % 15.5 Monocytes % 9.5 Eosinophils % 8.3 H Basophils % 1.0 Nucleated Red Blood Cells % 0.0 Neutrophils # 5.8 Lymphocytes # 1.4 Monocytes # 0.8 Eosinophils # 0.7 H Basophils # 0.1 Nucleated Red Blood Cells # 0.0 Sodium Level 146 H Potassium Level 4.2 Chloride Level 106 Carbon Dioxide Level 30 Anion Gap 14 Blood Urea Nitrogen 13 Creatinine 0.73 Glucose Level 110 Calcium Level 9.1 Medications Current Medications Acetaminophen (Tylenol Tab) 650 mg Q4H PRN PO pain/fever Last administered on 01/11/17 07:46; Admin Dose 650 MG; Start 12/31/16 at 01:00 Hydralazine HCl (Apresoline) 25 mg Q6H PRN PO sbp>160; Start 12/31/16 at 01:00 Enalaprilat (Vasotec Iv) 1.25 mg Q6H PRN IV sbp>160; Start 12/31/16 at 01:00 Ondansetron HCl (Zofran Inj) 4 mg Q4H PRN IV nausea; Start 12/31/16 at 01:00 Hydralazine HCl (Apresoline) 10 mg Q4H PRN IV ELEVATED SYSTOLIC BP Last administered on 01/13/17 16:25; Admin Dose 10 MG; Start 12/31/16 at 05:30 Labetalol HCl (Labetalol) 10 mg Q4H PRN IV SBP GREATER THAN 160 Last administered on 01/10/17 22:33; Admin Dose 10 MG; Start 01/01/17 at 12:00 IV Flush (NS 10 ml) 10 ml PRN PRN IV IV PROTOCOL; Start 01/02/17 at 17:00 Lorazepam 2 mg 2 mg Q2H PRN IV PRN Agitation. Last administered on 01/22/17 08 :54; Admin Dose 2 MG; Start 01/04/17 at 09:00 Propofol (Diprivan) 100 ml @ 3.537 mls/ hr Q12H IV Last administered on 05:11; Admin Dose 17.685 MLS/HR; Start 01/10/17 at 09:30 Metoclopramide HCl (Reglan) 10 mg Q6 IV Last administered on 01/26/17 05:41; Admin Dose 10 MG; Start 01/11/17 at 12:00 Trazodone HCl (Desyrel) 150 mg HS PO Last administered on 01/24/17 20:30; Admin Dose 150 MG; Start 01/15/17 at 21:00 Quetiapine Fumarate 200 mg 200 mg QID NGT Last administered on 01/26/17 07:48 ; Admin Dose 200 MG; Start 01/18/17 at 13:00 Thiamine HCl/ Dextrose (Vitamin B1/D5W) 101 ml @ 202 mls/hr DAILY IV Last administered on 01/26/17 07:48; Admin Dose 202 MLS/HR; Start 01/18/17 at 13:30 Polyethylene Glycol 17 gm 17 gm DAILY NGT Last administered on 01/26/17 07:48 ; Admin Dose 17 GM; Start 01/19/17 at 10:00 Fentanyl (Sublimaze) 100 ml @ 2.5 mls/hr TITRATE IV Last administered on 09:12; Admin Dose 10 MLS/HR; Start 01/19/17 at 13:00 Carbamazepine 400 mg 400 mg BID NGT Last administered on 01/26/17 07:54; Admin Dose 400 MG; Start 01/22/17 at 21:00 Lorazepam/Dextrose (Ativan/D5W) 100 ml @ 0 mls/hr TITRATE IV Last administered on 01/26/17 08:32; Admin Dose 10 MLS/HR; Start 01/22/17 at 13:00 Haloperidol (Haldol) 5 mg Q6 PRN IV AGITATION Last administered on 01/26/17 07 :49; Admin Dose 5 MG; Start 01/23/17 at 11:00 Valproate Sodium (Depakene Liquid Cup) 250 mg TID NGT Last administered on 01/26 07:48; Admin Dose 250 MG; Start 01/24/17 at 13:00 Lansoprazole (Prevacid) 30 mg BID@06,18 NGT Last administered on 01/26/17 05: 41; Admin Dose 30 MG; Start 01/24/17 at 18:00 Diphenhydramine HCl (Benadryl) 25 mg Q6H IV Last administered on 01/26/17 05: 41; Admin Dose 25 MG; Start 01/25/17 at 17:00 Docusate Sodium (Colace Liquid Cup) 100 mg BID NGT Last administered on 07:47; Admin Dose 100 MG; Start 01/25/17 at 21:00 Assessment/Plan Chief Complaint/Hosp Course IMP: 1. 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 Acute Lung Injury/ARDS 3. History of drug overdose 4. 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 5. ALEX 6. Anemia 7. Persistent need for propofol concerning for possible pancreatitis elevated triglyceride levels. RECS: 1. Pending tracheostomy and PEG tube. 2. Continue current vent settings for now 3. Tube feeds/Free H20 4. Minimize sedatives as tolerated 5. Continue antipsychotics 35 min cc time morning Problems: BRIANNA [facility]EDRA [facility], [facility] Jan 26, 2017 09:54
--- NOTE | 2017-01-26 09:57 | PN ---
Date/Time of Note Date/Time of Note DATE: 01/26/17 TIME: 09:42 Assessment/Plan VTE Prophylaxis VTE Prophylaxis Intervention: SCD's Lines/Catheters IV Catheter Type (from Nrs): PICC Line Central line still needed: Yes (For multiple sedating agents) Urinary Cath still in place: Yes Reason Cath still needed: other (indicate) (Intubated, sedated) Assessment/Plan Assessment/Plan 46 yo male with: 1. Severe encephalopathy 2ry to drug abuse likely Bath salts and/or synthetic marijuana and also bipolar disorder with violent behaviors and noncompliance with medications per previous psychiatry notes. No other clear etiology so far of encephalopathic, neurology on board, CT head 2 since admission are both wnl, EEG x2 showing encephalopathy, MRI brain wnl. Patient still with episodes of agitation and requiring multiple sedating agents. Reconciliation and titration of her psychiatric medications have been done, so far still unable to successfully de-escalate on the sedation. After discussion yesterday between the ICU director and patient's IPA, it is established that the patient is unstable for transfer and needs his tracheostomy and PEG tube placement here at [facility], appropriate consults have been placed. On Ativan drip, fentanyl drip, titrating propofol to off, Haldol prn. Continue IV thiamine. 2. Acute respiratory Failure 2ry to severe Encephalopathy from Drug overuse, intubated, sedated and paralysed. Patient was briefly extubated last week for 2 -1/2 hours but had to be reintubated due to inability to protect his airway, of note he was still on sedating agents. WBC within normal now and chest x-ray has been better but with compressive atelectasis. Still on FiO2 of 30% and PEEP of 7. Still on fentanyl, Haldol prn, and Ativan gtt. Patient has been restarted on Seroquel and Tegretol dosing adjusted to outpatient dosing. Trazodone resumed at night. Tracheostomy and PEG tube placement in the next 24-48 hours is reasonable since unable to extubate currently and patient has failed extubation once. 3. Bipolar disorder: Likely noncompliant with psychiatric medications. Medication resumed and adjusted to outpatient dosing based on the note from psychiatry 5 days prior to admission that were able to obtain last Wednesday, patient Seroquel can even be titrated higher, according to the notes he was on Seroquel XR, increased to 1000 mg nightly per the latest note. Now on Seroquel to 200 mg QID. Increased carbamazepine to 400 mg twice daily. Continue Haldol prn and on Ativan drip. Changed Depakene to 250 TID (patient on Depakote ER 500 mg nightly) Again per the girlfriend it is very likely that the patient was not fully compliant. 4. Right foot Lisfranc fracture: Pain control and ? splint 5. Anemia: Hemoglobin stable at approx 10, status post 1 unit pRBC on 01/15. SCDs to lower extremities. On Reglan up to 10 mg IV q6 and proton pump inhibitors. Tolerating tube feedings so far. Prophylaxis: SCDs for DVT prophylaxis, Protonix for GI prophylaxis Disposition: Still in ICU, re-intubated, sedated, so far unable to weaning off sedation. Family meeting 01/14 did confirm that patient is noncompliant with medication, unfortunately he does have significant behavioral issues including violent behavior. He is a bipolar that seems to be mostly manic most of the time and noncompliant with medications at all. Drug use is an issue. We have been unable to successfully wean the patient off the ventilator, he has failed extubation once. Therefore it is the opinion of the railroad firer and current team that the patient will need tracheostomy along with PEG tube placement. Dr Woodard did have a discussion with the patient's IPA, they are in agreement that the patient is not stable for transfer and needs tracheostomy and PEG tube placement here at [facility] with the hope that he will be calmer and will be able to wean him off the sedating agents. Jayda, the patient's 1/2 sister and currently DPOA has been informed of the plan, she is in agreement to proceed with tracheostomy and PEG tube placement, I have told her she would receive a call regarding consenting for those procedures, she is agreeable. She also has made us understand that she will not be involved in the primary caregiving of patient and he will need to be placed at the time of discharge no matter what his condition. Subjective 24 Hr Interval Summary Free Text/Dictation Patient under sedation currently, still attempting to titrate propofol off. Afebrile, WBC within normal, now awaiting tracheostomy and PEG tube placement. Yesterday, per discussion between Dr. Woodard, ICU director, railroad firer and also the patient is IPA medical laboratory specialist, the agreement currently is the patient is to have his tracheostomy and PEG tube placement here at [facility] due to the fact that he is too unstable for transfer and does need tracheostomy to be done. Dr. Pierce has been consulted yesterday, Dr. Miranda has been notified regarding the need for PEG, they are working on scheduling the patient hopefully in the next 24-48 hours Exam/Review of Systems Vital Signs Vitals Vital Signs Date Time Temp Pulse Resp B/P Pulse Ox O2 Delivery O2 Flow Rate FiO2 01/26/17 08:00 107 28 150/92 97 Mechanical Ventilator 01/26/17 04:00 98.3 01/26/17 00:00 30 Intake and Output 01/25/17 01/25/17 01/26/17 15:00 23:00 07:00 Intake Total 755.4 ml 509.5 ml 804.648 ml Output Total 440 ml 365 ml 490 ml Balance 315.4 ml 144.5 ml 314.648 ml Exam Constitutional: other (Sedated) Respiratory: clear to auscultation (Upper lung champion with slightly diminished breath sounds at the bases), other (On mechanical ventilation) Cardiovascular: nl pulses, regular rate and rhythm Gastrointestinal: non-tender, other (Tolerating tube feeding), soft Musculoskeletal: nl extremities to inspection Extremities: normal pulses, other (No edema, clubbing or cyanosis) Neurological: other (Intubated, calmer on multiple sedating agents) Results Result Diagram: 01/26/17 04301/26/17 0430 Results 24 hrs Laboratory Tests Test 01/26/17 04:30 White Blood Count 8.9 Red Blood Count 3.60 L Hemoglobin 10.2 L Hematocrit 32.2 L Mean Corpuscular Volume 89.4 Mean Corpuscular Hemoglobin 28.3 L Mean Corpuscular Hemoglobin Concent 31.7 L Red Cell Distribution Width 14.0 Platelet Count 335 Mean Platelet Volume 11.8 H Neutrophils % 65.2 Lymphocytes % 15.5 Monocytes % 9.5 Eosinophils % 8.3 H Basophils % 1.0 Nucleated Red Blood Cells % 0.0 Neutrophils # 5.8 Lymphocytes # 1.4 Monocytes # 0.8 Eosinophils # 0.7 H Basophils # 0.1 Nucleated Red Blood Cells # 0.0 Sodium Level 146 H Potassium Level 4.2 Chloride Level 106 Carbon Dioxide Level 30 Anion Gap 14 Blood Urea Nitrogen 13 Creatinine 0.73 Glucose Level 110 Calcium Level 9.1 Medications Medications Current Medications Acetaminophen (Tylenol Tab) 650 mg Q4H PRN PO pain/fever Last administered on 01/11/17 07:46; Admin Dose 650 MG; Start 12/31/16 at 01:00 Hydralazine HCl (Apresoline) 25 mg Q6H PRN PO sbp>160; Start 12/31/16 at 01:00 Enalaprilat (Vasotec Iv) 1.25 mg Q6H PRN IV sbp>160; Start 12/31/16 at 01:00 Ondansetron HCl (Zofran Inj) 4 mg Q4H PRN IV nausea; Start 12/31/16 at 01:00 Hydralazine HCl (Apresoline) 10 mg Q4H PRN IV ELEVATED SYSTOLIC BP Last administered on 01/13/17 16:25; Admin Dose 10 MG; Start 12/31/16 at 05:30 Labetalol HCl (Labetalol) 10 mg Q4H PRN IV SBP GREATER THAN 160 Last administered on 01/10/17 22:33; Admin Dose 10 MG; Start 01/01/17 at 12:00 IV Flush (NS 10 ml) 10 ml PRN PRN IV IV PROTOCOL; Start 01/02/17 at 17:00 Lorazepam 2 mg 2 mg Q2H PRN IV PRN Agitation. Last administered on 01/22/17 08 :54; Admin Dose 2 MG; Start 01/04/17 at 09:00 Propofol (Diprivan) 100 ml @ 3.537 mls/ hr Q12H IV Last administered on 05:11; Admin Dose 17.685 MLS/HR; Start 01/10/17 at 09:30 Metoclopramide HCl (Reglan) 10 mg Q6 IV Last administered on 01/26/17 05:41; Admin Dose 10 MG; Start 01/11/17 at 12:00 Trazodone HCl (Desyrel) 150 mg HS PO Last administered on 01/24/17 20:30; Admin Dose 150 MG; Start 01/15/17 at 21:00 Quetiapine Fumarate 200 mg 200 mg QID NGT Last administered on 01/26/17 07:48 ; Admin Dose 200 MG; Start 01/18/17 at 13:00 Thiamine HCl/ Dextrose (Vitamin B1/D5W) 101 ml @ 202 mls/hr DAILY IV Last administered on 01/26/17 07:48; Admin Dose 202 MLS/HR; Start 01/18/17 at 13:30 Polyethylene Glycol 17 gm 17 gm DAILY NGT Last administered on 01/26/17 07:48 ; Admin Dose 17 GM; Start 01/19/17 at 10:00 Fentanyl (Sublimaze) 100 ml @ 2.5 mls/hr TITRATE IV Last administered on 09:12; Admin Dose 10 MLS/HR; Start 01/19/17 at 13:00 Carbamazepine 400 mg 400 mg BID NGT Last administered on 01/26/17 07:54; Admin Dose 400 MG; Start 01/22/17 at 21:00 Lorazepam/Dextrose (Ativan/D5W) 100 ml @ 0 mls/hr TITRATE IV Last administered on 01/26/17 08:32; Admin Dose 10 MLS/HR; Start 01/22/17 at 13:00 Haloperidol (Haldol) 5 mg Q6 PRN IV AGITATION Last administered on 01/26/17 07 :49; Admin Dose 5 MG; Start 01/23/17 at 11:00 Valproate Sodium (Depakene Liquid Cup) 250 mg TID NGT Last administered on 01/26 07:48; Admin Dose 250 MG; Start 01/24/17 at 13:00 Lansoprazole (Prevacid) 30 mg BID@06,18 NGT Last administered on 01/26/17 05: 41; Admin Dose 30 MG; Start 01/24/17 at 18:00 Diphenhydramine HCl (Benadryl) 25 mg Q6H IV Last administered on 01/26/17 05: 41; Admin Dose 25 MG; Start 01/25/17 at 17:00 Docusate Sodium (Colace Liquid Cup) 100 mg BID NGT Last administered on 07:47; Admin Dose 100 MG; Start 01/25/17 at 21:00 TRENT NEWMAN Jan 26, 2017 09:57
[2017-01-26 10:26] LABS: CHOL/HDL RATIO 11.7 RATIO
[2017-01-26 10:50] LABS: INR 0.99; PROTIME 13.1 Sec (12.2-14.2)
[2017-01-26 10:52] LABS: PARTIAL THROMBOPLASTIN TIME 41.6 Sec (25.0-35.0)
--- NOTE | 2017-01-26 15:47 | PN ---
Date/Time of Note Date/Time of Note DATE: 01/26/17 TIME: 15:43 Assessment/Plan VTE Prophylaxis VTE Prophylaxis Intervention: SCD's Lines/Catheters IV Catheter Type (from Nrsg): PICC Line Central line still needed: Yes (Occasionmeds) Urinary Cath still in place: Yes Reason Cath still needed: other (indicate) (Monitor output) Assessment/Plan Chief Complaint/Hosp Course Assessment: Anemia-improved Severe encephalopathy Likely secondary to drug use Acute Respiratory failure Intubated and sedated Extubation with Bipap attempted and failed 01/13 after 2 hours pt reintubated Plan: NPO after midnight Plan for PEG placement tomorrow Continue all supportive care Patient seen in collaboration with Dr. Miranda Subjective: Course reviewed with nursing staff Patient interviewed and examined All labs, imaging and other results reviewed Patient remains intubated and sedated, although weaning down on drip Plan for PEG and Trach placement tomorrow. Exam Constitutional: well developed, sedated and intubated Psych: unable to assess Head: atraumatic, normocephalic Eyes: EOMI, nl conjunctiva, nl lids ENMT: nl external ears & nose, nl lips & teeth, nl nasal mucosa & septum Neck: non-tender, supple Respiratory: Bilateral Rales Cardiovascular: nl pulses, regular rate and rhythm Gastrointestinal: hypoactive bowel sounds, soft Problems: Exam/Review of Systems Vital Signs Vitals Vital Signs Date Time Temp Pulse Resp B/P Pulse Ox O2 Delivery O2 Flow Rate FiO2 01/26/17 13:00 98 24 97/58 96 Mechanical Ventilator 01/26/17 12:00 98.6 01/26/17 08:00 30 Intake and Output 01/25/17 01/25/17 01/26/17 15:00 23:00 07:00 Intake Total 755.4 ml 509.5 ml 804.648 ml Output Total 440 ml 365 ml 490 ml Balance 315.4 ml 144.5 ml 314.648 ml Results Result Diagram: 01/26/1742901/26/17 043 Results 24 hrs Laboratory Tests Test 01/26/17 04:30 01/26/17 10:13 White Blood Count 8.9 Red Blood Count 3.60 L Hemoglobin 10.2 L Hematocrit 32.2 L Mean Corpuscular Volume 89.4 Mean Corpuscular Hemoglobin 28.3 L Mean Corpuscular Hemoglobin Concent 31.7 L Red Cell Distribution Width 14.0 Platelet Count 335 Mean Platelet Volume 11.8 H Neutrophils % 65.2 Lymphocytes % 15.5 Monocytes % 9.5 Eosinophils % 8.3 H Basophils % 1.0 Nucleated Red Blood Cells % 0.0 Neutrophils # 5.8 Lymphocytes # 1.4 Monocytes # 0.8 Eosinophils # 0.7 H Basophils # 0.1 Nucleated Red Blood Cells # 0.0 Sodium Level 146 H Potassium Level 4.2 Chloride Level 106 Carbon Dioxide Level 30 Anion Gap 14 Blood Urea Nitrogen 13 Creatinine 0.73 Glucose Level 110 Calcium Level 9.1 Triglycerides Level 419 H Cholesterol Level 294 H LDL Cholesterol, Calculated 185 HDL Cholesterol 25 L Cholesterol/HDL Ratio 11.7 Prothrombin Time 13.1 Prothrombin Time Ratio 1.0 INR International Normalized Ratio 0.99 Activated Partial Thromboplast Time 41.6 H Medications Medications Current Medications Acetaminophen (Tylenol Tab) 650 mg Q4H PRN PO pain/fever Last administered on 01/11/17 07:46; Admin Dose 650 MG; Start 12/31/16 at 01:00 Hydralazine HCl (Apresoline) 25 mg Q6H PRN PO sbp>160; Start 12/31/16 at 01:00 Enalaprilat (Vasotec Iv) 1.25 mg Q6H PRN IV sbp>160; Start 12/31/16 at 01:00 Ondansetron HCl (Zofran Inj) 4 mg Q4H PRN IV nausea; Start 12/31/16 at 01:00 Hydralazine HCl (Apresoline) 10 mg Q4H PRN IV ELEVATED SYSTOLIC BP Last administered on 01/13/17 16:25; Admin Dose 10 MG; Start 12/31/16 at 05:30 Labetalol HCl (Labetalol) 10 mg Q4H PRN IV SBP GREATER THAN 160 Last administered on 01/10/17 22:33; Admin Dose 10 MG; Start 01/01/17 at 12:00 IV Flush (NS 10 ml) 10 ml PRN PRN IV IV PROTOCOL; Start 01/02/17 at 17:00 Lorazepam 2 mg 2 mg Q2H PRN IV PRN Agitation. Last administered on 01/22/17 08 :54; Admin Dose 2 MG; Start 01/04/17 at 09:00 Propofol (Diprivan) 100 ml @ 3.537 mls/ hr Q12H IV Last administered on 05:11; Admin Dose 17.685 MLS/HR; Start 01/10/17 at 09:30 Metoclopramide HCl (Reglan) 10 mg Q6 IV Last administered on 01/26/17 11:50; Admin Dose 10 MG; Start 01/11/17 at 12:00 Trazodone HCl (Desyrel) 150 mg HS PO Last administered on 01/24/17 20:30; Admin Dose 150 MG; Start 01/15/17 at 21:00 Quetiapine Fumarate 200 mg 200 mg QID NGT Last administered on 01/26/17 11:49 ; Admin Dose 200 MG; Start 01/18/17 at 13:00 Thiamine HCl/ Dextrose (Vitamin B1/D5W) 101 ml @ 202 mls/hr DAILY IV Last administered on 01/26/17 07:48; Admin Dose 202 MLS/HR; Start 01/18/17 at 13:30 Polyethylene Glycol 17 gm 17 gm DAILY NGT Last administered on 01/26/17 07:48 ; Admin Dose 17 GM; Start 01/19/17 at 10:00 Fentanyl (Sublimaze) 100 ml @ 2.5 mls/hr TITRATE IV Last administered on 09:12; Admin Dose 10 MLS/HR; Start 01/19/17 at 13:00 Carbamazepine 400 mg 400 mg BID NGT Last administered on 01/26/17 07:54; Admin Dose 400 MG; Start 01/22/17 at 21:00 Lorazepam/Dextrose (Ativan/D5W) 100 ml @ 0 mls/hr TITRATE IV Last administered on 01/26/17 08:32; Admin Dose 10 MLS/HR; Start 01/22/17 at 13:00 Haloperidol (Haldol) 5 mg Q6 PRN IV AGITATION Last administered on 01/26/17 07 :49; Admin Dose 5 MG; Start 01/23/17 at 11:00 Valproate Sodium (Depakene Liquid Cup) 250 mg TID NGT Last administered on 01/26 11:50; Admin Dose 250 MG; Start 01/24/17 at 13:00 Lansoprazole (Prevacid) 30 mg BID@06,18 NGT Last administered on 01/26/17 05: 41; Admin Dose 30 MG; Start 01/24/17 at 18:00 Diphenhydramine HCl (Benadryl) 25 mg Q6H IV Last administered on 01/26/17 11: 50; Admin Dose 25 MG; Start 01/25/17 at 17:00 Docusate Sodium (Colace Liquid Cup) 100 mg BID NGT Last administered on 07:47; Admin Dose 100 MG; Start 01/25/17 at 21:00 JULY MCKENNA Jan 26, 2017 15:47
--- NOTE | 2017-01-26 21:02 | PN ---
Date/Time of Note Date/Time of Note DATE: 01/26/17 TIME: 21:01 Assessment/Plan Lines/Catheters IV Catheter Type (from Nrsg): PICC Line Lewis in Place (from Nrsg): Yes Assessment/Plan Chief Complaint/Hosp Course IMPRESSION: Respiratory failure. RECOMMENDATIONS: We will proceed with the placement of a tracheostomy. tomorrow. Discussed with the nursing staff. Problems: Subjective 24 Hr Interval Summary Constitutional: improved Pain Control: mild Exam/Review of Systems Vital Signs Vitals Vital Signs Date Time Temp Pulse Resp B/P Pulse Ox O2 Delivery O2 Flow Rate FiO2 01/26/17 20:00 30 01/26/17 19:30 95 20 100/71 98 01/26/17 19:00 99.6 Mechanical Ventilator Intake and Output 01/25/17 01/25/17 01/26/17 15:00 23:00 07:00 Intake Total 755.4 ml 509.5 ml 804.648 ml Output Total 440 ml 365 ml 490 ml Balance 315.4 ml 144.5 ml 314.648 ml Exam ENMT: mucosa pink and moist, nl external ears & nose, nl lips & teeth, nl nasal mucosa & septum Neck: non-tender, supple Respiratory: clear to auscultation, normal air movement Cardiovascular: nl pulses, regular rate and rhythm Gastrointestinal: nl liver, spleen, non-tender, soft Results Result Diagram: 01/26/1742901/26/17429 JOSE GUAJARDO MD Jan 26, 2017 21:02
[2017-01-26] MEDS: traZODone 100 MG TAB PO SCH (21:53)
[2017-01-27] VITALS (43 sets, daily range): BP systolic 93–168; BP diastolic 51–94; PULSE 81–128; RESP 14–33
[2017-01-27] MEDS: ALBUTEROL 18 GM INHALER INH SCH ×4 (01:57→19:28)
[2017-01-27] MEDS: IPRATROPIUM (HFA) 12.9 GM INHALER INH SCH ×4 (01:57→19:28)
[2017-01-27] MEDS: LORAZEPAM (MDV) 100 MG in DEXTROSE 5% 50 ML IV SCH ×2 (02:59→16:29)
[2017-01-27] MEDS: PROPOFOL 100 ML IV SCH ×2 (03:33→10:56)
[2017-01-27] MEDS: DIPHENHYDRAMINE 50 MG INJ IV SCH ×4 (05:07→23:00)
[2017-01-27 05:37] LABS: BASOPHIL # 0.1 10^3/ul (0.0-0.1); BASOPHILS % 1.3 % (0.0-2.0); EOSINOPHILS # 0.4 10^3/ul (0.0-0.5); EOSINOPHILS % 4.4 % (0.0-7.0); HEMATOCRIT 30.4 % (42.0-52.0); HEMOGLOBIN 9.7 g/dl (14.0-18.0); LYMPHOCYTES # 1.1 10^3/ul (0.8-2.9); LYMPHOCYTES % 13.4 % (15.0-51.0); MEAN CORPUSCULAR HEMOGLOBIN 29.3 pg (29.0-33.0); MEAN CORPUSCULAR HGB CONC 31.9 g/dl (32.0-37.0); MEAN CORPUSCULAR VOLUME 91.8 fl (82.0-101.0); MEAN PLATELET VOLUME 11.8 fl (7.4-10.4); MONOCYTE # 0.9 10^3/ul (0.3-0.9); NEUTROPHILS % 70.4 % (39.0-77.0); PLATELET COUNT 299 10^3/UL (140-415); RED BLOOD COUNT 3.31 10^6/ul (4.70-6.10); RED CELL DISTRIBUTION WIDTH 14.4 % (11.5-14.5); WHITE BLOOD COUNT 8.5 10^3/ul (4.8-10.8)
[2017-01-27] MEDS: METOCLOPRAMIDE 10 MG INJ IV SCH ×4 (06:04→23:00)
[2017-01-27] MEDS: LANSOPRAZOLE 30 MG CAP NGT SCH ×2 (06:04→16:21)
[2017-01-27 06:07] LABS: PHOSPHORUS 5.1 mg/dl (2.5-4.9)
[2017-01-27 06:08] LABS: CALCIUM 8.6 mg/dl (8.4-10.2); CREATININE 0.74 mg/dl (0.61-1.24); POTASSIUM 4.1 mmol/L (3.5-5.1)
[2017-01-27] MEDS: FENTAnyl (DRIP) 1000 mcg/100mL 100 ML IV SCH ×2 (06:19→11:59)
[2017-01-27] MEDS: POLYETHYLENE GLYCOL 17 GM PACKET NGT SCH (07:29)
[2017-01-27] MEDS: DOCUSATE SODIUM 10 MG/ML (10ML CUP) NGT SCH ×2 (07:29→20:37)
[2017-01-27] MEDS: QUETIAPINE 100 MG TAB NGT SCH ×4 (07:29→23:00)
[2017-01-27] MEDS: VALPROIC ACID LIQUID CUP 250 MG/5 ML CUP NGT SCH ×3 (07:29→16:21)
[2017-01-27] MEDS: carBAMAZepine SUSP 20 MG/ML POSYG NGT SCH ×2 (07:30→20:37)
[2017-01-27] MEDS: HALOPERIDOL 5 MG INJ IV PRN ×3 (07:32→20:38)
--- NOTE | 2017-01-27 09:36 | CONS ---
Date/Time of Note Date/Time of Note DATE: 01/27/17 TIME: 09:35 Consult Date/Type/Reason Admit Date/Time Dec 31, 2016 at 00:30 Initial Consult Date 12/31/16 Type of Consultation: Pulm/CCM Ordering Provider: JEAN MARIE BRAGG MD Subjective Finally off propofol. Remains comfortable. Not following commands. Continues Ativan and fentanyl drips. Objective Vital Signs Date Time Temp Pulse Resp B/P Pulse Ox O2 Delivery O2 Flow Rate FiO2 01/27/17 08:00 82 01/27/17 07:30 20 114/76 97 01/27/17 05:40 30 01/27/17 04:00 97.9 Mechanical Ventilator Intake and Output 01/26/17 01/26/17 01/27/17 14:59 22:59 06:59 Intake Total 761.370 ml 461.0 ml 363.833 ml Output Total 610 ml 400 ml 475 ml Balance 151.370 ml 61.0 ml -111.167 ml Exam GENERAL: Well-nourished well-developed gentleman orally intubated on mechanical ventilation VITAL SIGNS: see below. HEENT: Pupils equal, round, and reactive to light. CARDIAC: S1, S2, 1/6 systolic ejection murmur CHEST: Diminished air entry bilaterally. ABDOMEN: Mildly distended. Bowel sounds present no guarding or rebound EXTREMITIES: No cyanosis, clubbing edema +1 NEUROLOGIC: Generalized weakness Results/Medications Result Diagram: 01/27/17 0515 01/27/17 0515 Results 24 hrs Laboratory Tests Test 01/26/17 10:13 01/27/17 05:15 Prothrombin Time 13.1 Prothrombin Time Ratio 1.0 INR International Normalized Ratio 0.99 Activated Partial Thromboplast Time 41.6 H White Blood Count 8.5 Red Blood Count 3.31 L Hemoglobin 9.7 L Hematocrit 30.4 L Mean Corpuscular Volume 91.8 Mean Corpuscular Hemoglobin 29.3 Mean Corpuscular Hemoglobin Concent 31.9 L Red Cell Distribution Width 14.4 Platelet Count 299 Mean Platelet Volume 11.8 H Neutrophils % 70.4 Lymphocytes % 13.4 L Monocytes % 10.0 Eosinophils % 4.4 Basophils % 1.3 Nucleated Red Blood Cells % 0.0 Neutrophils # 6.0 Lymphocytes # 1.1 Monocytes # 0.9 Eosinophils # 0.4 Basophils # 0.1 Nucleated Red Blood Cells # 0.0 Sodium Level 146 H Potassium Level 4.1 Chloride Level 106 Carbon Dioxide Level 27 Anion Gap 17 H Blood Urea Nitrogen 15 Creatinine 0.74 Glucose Level 117 Calcium Level 8.6 Phosphorus Level 5.1 H Magnesium Level 2.0 Medications Current Medications Acetaminophen (Tylenol Tab) 650 mg Q4H PRN PO pain/fever Last administered on 01/11/17 07:46; Admin Dose 650 MG; Start 12/31/16 at 01:00 Hydralazine HCl (Apresoline) 25 mg Q6H PRN PO sbp>160; Start 12/31/16 at 01:00 Enalaprilat (Vasotec Iv) 1.25 mg Q6H PRN IV sbp>160; Start 12/31/16 at 01:00 Ondansetron HCl (Zofran Inj) 4 mg Q4H PRN IV nausea; Start 12/31/16 at 01:00 Hydralazine HCl (Apresoline) 10 mg Q4H PRN IV ELEVATED SYSTOLIC BP Last administered on 01/13/17 16:25; Admin Dose 10 MG; Start 12/31/16 at 05:30 Labetalol HCl (Labetalol) 10 mg Q4H PRN IV SBP GREATER THAN 160 Last administered on 01/10/17 22:33; Admin Dose 10 MG; Start 01/01/17 at 12:00 IV Flush (NS 10 ml) 10 ml PRN PRN IV IV PROTOCOL; Start 01/02/17 at 17:00 Lorazepam 2 mg 2 mg Q2H PRN IV PRN Agitation. Last administered on 01/22/17 08 :54; Admin Dose 2 MG; Start 01/04/17 at 09:00 Propofol (Diprivan) 100 ml @ 3.537 mls/ hr Q12H IV Last administered on 03:33; Admin Dose 3.537 MLS/HR; Start 01/10/17 at 09:30 Metoclopramide HCl (Reglan) 10 mg Q6 IV Last administered on 01/27/17 06:04; Admin Dose 10 MG; Start 01/11/17 at 12:00 Trazodone HCl 150 mg 150 mg HS PO Last administered on 01/26/17 21:53; Admin Dose 150 MG; Start 01/15/17 at 21:00 Thiamine HCl/ Dextrose (Vitamin B1/D5W) 101 ml @ 202 mls/hr DAILY IV Last administered on 01/26/17 07:48; Admin Dose 202 MLS/HR; Start 01/18/17 at 13:30 Polyethylene Glycol 17 gm 17 gm DAILY NGT Last administered on 01/27/17 07:29 ; Admin Dose 17 GM; Start 01/19/17 at 10:00 Fentanyl (Sublimaze) 100 ml @ 2.5 mls/hr TITRATE IV Last administered on 06:19; Admin Dose 7.5 MLS/HR; Start 01/19/17 at 13:00 Carbamazepine 400 mg 400 mg BID NGT Last administered on 01/27/17 07:30; Admin Dose 400 MG; Start 01/22/17 at 21:00 Lorazepam/Dextrose (Ativan/D5W) 100 ml @ 0 mls/hr TITRATE IV Last administered on 01/27/17 02:59; Admin Dose 6 MLS/HR; Start 01/22/17 at 13:00 Haloperidol (Haldol) 5 mg Q6 PRN IV AGITATION Last administered on 01/27/17 07 :32; Admin Dose 5 MG; Start 01/23/17 at 11:00 Valproate Sodium (Depakene Liquid Cup) 250 mg TID NGT Last administered on 01/27 07:29; Admin Dose 250 MG; Start 01/24/17 at 13:00 Lansoprazole (Prevacid) 30 mg BID@06,18 NGT Last administered on 01/27/17 06: 04; Admin Dose 30 MG; Start 01/24/17 at 18:00 Diphenhydramine HCl (Benadryl) 25 mg Q6H IV Last administered on 01/27/17 05: 07; Admin Dose 25 MG; Start 01/25/17 at 17:00 Docusate Sodium (Colace Liquid Cup) 100 mg BID NGT Last administered on 07:29; Admin Dose 100 MG; Start 01/25/17 at 21:00 Quetiapine Fumarate 200 mg 200 mg Q6 NGT ; Start 01/27/17 at 12:00; Status UNV Dextrose/Sodium Chloride (D5-1/2ns) 1,000 ml @ 75 mls/hr [id number] IV ; Start at 09:30; Status UNV Assessment/Plan Chief Complaint/Hosp Course IMP: 1. 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 Acute Lung Injury/ARDS 3. History of drug overdose 4. 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 5. ALEX 6. Anemia 7. Required ongoing sedation with Ativan, fentanyl and Seroquel. RECS: 1. Pending tracheostomy and PEG tube. 2. Continue current vent settings for now 3. Tube feeds/Free H20 4. Minimize sedatives as tolerated 5. Continue antipsychotics 35 min cc time Problems: BRIANNA SAAVEDRA MD, [facility] Jan 27, 2017 09:36
[2017-01-27] MEDS: DEXTROSE 5%-0.45% NACL 1,000 ML IV SCH ×2 (09:57→23:00)
[2017-01-27] MEDS: DEXTROSE 5% IV SCH (09:57)
[2017-01-27] MEDS: THIAMINE IV SCH (09:57)
--- NOTE | 2017-01-27 11:01 | PN ---
Date/Time of Note Date/Time of Note DATE: 01/27/17 TIME: 10:59 Assessment/Plan VTE Prophylaxis VTE Prophylaxis Intervention: SCD's Lines/Catheters IV Catheter Type (from Nrs): PICC Line Central line still needed: Yes (IV access) Urinary Cath still in place: Yes Reason Cath still needed: other (indicate) (Intubated sedated) Assessment/Plan Assessment/Plan 46 yo male with: 1. Severe encephalopathy 2ry to drug abuse likely Bath salts and/or synthetic marijuana and also bipolar disorder with violent behaviors and noncompliance with medications per previous psychiatry notes. No other clear etiology so far of encephalopathic, neurology on board, CT head 2 since admission are both wnl, EEG x2 showing encephalopathy, MRI brain wnl. Patient still with episodes of agitation and requiring multiple sedating agents. Reconciliation and titration of her psychiatric medications have been done, so far still unable to successfully de-escalate on the sedation. After discussion on Wednesday,01/25/17, between the ICU director and patient's IPA, it is established that the patient is unstable for transfer and needs his tracheostomy and PEG tube placement here at [facility], appropriate consults have been placed. Both procedures to be done today. Patient n.p.o. On Ativan drip, fentanyl drip, Haldol as needed. Off propofol for now. Continue IV thiamine. 2. Acute respiratory Failure 2ry to severe Encephalopathy from Drug overuse, intubated, sedated and paralysed. Patient was briefly extubated last week for 2 -1/2 hours but had to be reintubated due to inability to protect his airway, of note he was still on sedating agents. WBC within normal now and chest x-ray has been better but with compressive atelectasis. Still on FiO2 of 30% and PEEP of 7. Still on fentanyl, Haldol prn, and Ativan gtt. Patient has been restarted on Seroquel and Tegretol dosing adjusted to outpatient dosing. Trazodone resumed at night. Tracheostomy and PEG tube placement today. 3. Bipolar disorder: Likely noncompliant with psychiatric medications. Medication resumed and adjusted to outpatient dosing based on the note from psychiatry 5 days prior to admission that were able to obtain last Wednesday, patient Seroquel can even be titrated higher, according to the notes he was on Seroquel XR, increased to 1000 mg nightly per the latest note. Now on Seroquel to 200 mg QID. Increased carbamazepine to 400 mg twice daily. Continue Haldol prn and on Ativan drip. Changed Depakene to 250 TID (patient on Depakote ER 500 mg nightly) Again per the girlfriend it is very likely that the patient was not fully compliant. 4. Right foot Lisfranc fracture: Pain control and ? splint 5. Anemia: Hemoglobin stable at approx 10, status post 1 unit pRBC on 01/15. SCDs to lower extremities. On Reglan up to 10 mg IV q6 and proton pump inhibitors. Tolerating tube feedings so far. Prophylaxis: SCDs for DVT prophylaxis, Protonix for GI prophylaxis Disposition: Still in ICU, re-intubated, sedated, so far unable to weaning off sedation or vent. Family meeting 01/14 did confirm that patient is noncompliant with medication, unfortunately he does have significant behavioral issues including violent behavior. He is a bipolar that seems to be mostly manic most of the time and noncompliant with medications at all. Drug use is an issue. We have been unable to successfully wean the patient off the ventilator, he has failed extubation once. Therefore it is the opinion of the pastry supervisor and current team that the patient will need tracheostomy along with PEG tube placement. Dr. Woodard did have a discussion with the patient's IPA, they are in agreement that the patient is not stable for transfer and needs tracheostomy and PEG tube placement here at [facility] with the hope that he will be calmer and will be able to wean him off the sedating agents. Jayda, the patient's 1/2 sister and currently DPOA has been informed of the plan, she is in agreement to proceed with tracheostomy and PEG tube placement, she has given consent this morning. She also has made us understand that she will not be involved in the primary caregiving of patient and he will need to be placed at the time of discharge no matter what his condition. Subjective 24 Hr Interval Summary Free Text/Dictation Patient remains hemodynamically stable, currently on fentanyl and Ativan drip. Propofol has been turned off this morning. On multiple antipsychotic medications. N.p.o., plan for PEG tube placement today by Dr. Miranda and per Dr. Fernando also tracheostomy later today Exam/Review of Systems Vital Signs Vitals Vital Signs Date Time Temp Pulse Resp B/P Pulse Ox O2 Delivery O2 Flow Rate FiO2 01/27/17 08:00 82 01/27/17 07:30 20 114/76 97 01/27/17 05:40 30 01/27/17 04:00 97.9 Mechanical Ventilator Intake and Output 01/26/17 01/26/17 01/27/17 15:00 23:00 07:00 Intake Total 748.722 ml 465.5 ml 316.333 ml Output Total 560 ml 400 ml 460 ml Balance 188.722 ml 65.5 ml -143.667 ml Exam Constitutional: other (Sedated and intubated) Respiratory: clear to auscultation, other (Mechanical ventilation) Cardiovascular: nl pulses, regular rate and rhythm Gastrointestinal: non-tender, soft Musculoskeletal: nl extremities to inspection Extremities: normal pulses, other (No edema, clubbing or cyanosis) Neurological: nl strength, other (Sedated and intubated) Results Result Diagram: 01/27/1751401/27/1715 Results 24 hrs Laboratory Tests Test 01/27/17 05:15 White Blood Count 8.5 Red Blood Count 3.31 L Hemoglobin 9.7 L Hematocrit 30.4 L Mean Corpuscular Volume 91.8 Mean Corpuscular Hemoglobin 29.3 Mean Corpuscular Hemoglobin Concent 31.9 L Red Cell Distribution Width 14.4 Platelet Count 299 Mean Platelet Volume 11.8 H Neutrophils % 70.4 Lymphocytes % 13.4 L Monocytes % 10.0 Eosinophils % 4.4 Basophils % 1.3 Nucleated Red Blood Cells % 0.0 Neutrophils # 6.0 Lymphocytes # 1.1 Monocytes # 0.9 Eosinophils # 0.4 Basophils # 0.1 Nucleated Red Blood Cells # 0.0 Sodium Level 146 H Potassium Level 4.1 Chloride Level 106 Carbon Dioxide Level 27 Anion Gap 17 H Blood Urea Nitrogen 15 Creatinine 0.74 Glucose Level 117 Calcium Level 8.6 Phosphorus Level 5.1 H Magnesium Level 2.0 Medications Medications Current Medications Acetaminophen (Tylenol Tab) 650 mg Q4H PRN PO pain/fever Last administered on 01/11/17t 07:46; Admin Dose 650 MG; Start 12/31/16 at 01:00 Hydralazine HCl (Apresoline) 25 mg Q6H PRN PO sbp>160; Start 12/31/16 at 01:00 Enalaprilat (Vasotec Iv) 1.25 mg Q6H PRN IV sbp>160; Start 12/31/16 at 01:00 Ondansetron HCl (Zofran Inj) 4 mg Q4H PRN IV nausea; Start 12/31/16 at 01:00 Hydralazine HCl (Apresoline) 10 mg Q4H PRN IV ELEVATED SYSTOLIC BP Last administered on 01/13/17 16:25; Admin Dose 10 MG; Start 12/31/16 at 05:30 Labetalol HCl (Labetalol) 10 mg Q4H PRN IV SBP GREATER THAN 160 Last administered on 01/10/17 22:33; Admin Dose 10 MG; Start 01/01/17 at 12:00 IV Flush (NS 10 ml) 10 ml PRN PRN IV IV PROTOCOL; Start 01/02/17 at 17:00 Lorazepam 2 mg 2 mg Q2H PRN IV PRN Agitation. Last administered on 01/22/17 08 :54; Admin Dose 2 MG; Start 01/04/17 at 09:00 Propofol (Diprivan) 100 ml @ 3.537 mls/ hr Q12H IV Last administered on 10:56; Admin Dose 1.769 MLS/HR; Start 01/10/17 at 09:30 Metoclopramide HCl (Reglan) 10 mg Q6 IV Last administered on 01/27/17 06:04; Admin Dose 10 MG; Start 01/11/17 at 12:00 Trazodone HCl 150 mg 150 mg HS PO Last administered on 01/26/17 21:53; Admin Dose 150 MG; Start 01/15/17 at 21:00 Thiamine HCl/ Dextrose (Vitamin B1/D5W) 101 ml @ 202 mls/hr DAILY IV Last administered on 01/27/17 09:57; Admin Dose 202 MLS/HR; Start 01/18/17 at 13:30 Polyethylene Glycol 17 gm 17 gm DAILY NGT Last administered on 01/27/17 07:29 ; Admin Dose 17 GM; Start 01/19/17 at 10:00 Fentanyl (Sublimaze) 100 ml @ 2.5 mls/hr TITRATE IV Last administered on 06:19; Admin Dose 7.5 MLS/HR; Start 01/19/17 at 13:00 Carbamazepine 400 mg 400 mg BID NGT Last administered on 01/27/17 07:30; Admin Dose 400 MG; Start 01/22/17 at 21:00 Lorazepam/Dextrose (Ativan/D5W) 100 ml @ 0 mls/hr TITRATE IV Last administered on 01/27/17 02:59; Admin Dose 6 MLS/HR; Start 01/22/17 at 13:00 Haloperidol (Haldol) 5 mg Q6 PRN IV AGITATION Last administered on 01/27/17 07 :32; Admin Dose 5 MG; Start 01/23/17 at 11:00 Valproate Sodium (Depakene Liquid Cup) 250 mg TID NGT Last administered on 01/27 07:29; Admin Dose 250 MG; Start 01/24/17 at 13:00 Lansoprazole (Prevacid) 30 mg BID@06,18 NGT Last administered on 01/27/17 06: 04; Admin Dose 30 MG; Start 01/24/17 at 18:00 Diphenhydramine HCl (Benadryl) 25 mg Q6H IV Last administered on 01/27/17 05: 07; Admin Dose 25 MG; Start 01/25/17 at 17:00 Docusate Sodium (Colace Liquid Cup) 100 mg BID NGT Last administered on 07:29; Admin Dose 100 MG; Start 01/25/17 at 21:00 Quetiapine Fumarate 200 mg 200 mg Q6 NGT ; Start 01/27/17 at 12:00 Dextrose/Sodium Chloride (D5-1/2ns) 1,000 ml @ 75 mls/hr [id number] IV Last administered on 01/27/17 09:57; Admin Dose 75 MLS/HR; Start 01/27/17 at 09:30 TRENT NEWMAN Jan 27, 2017 11:01
--- NOTE | 2017-01-27 18:35 | PN ---
Date/Time of Note Date/Time of Note DATE: 01/27/17 TIME: 18:34 Assessment/Plan Lines/Catheters IV Catheter Type (from Nrsg): PICC Line Lewis in Place (from Nrsg): Yes Assessment/Plan Chief Complaint/Hosp Course IMPRESSION: Respiratory failure. RECOMMENDATIONS: We will proceed with the placement of a tracheostomy. tomorrow. OR time not available today Discussed with the nursing staff. Problems: Subjective 24 Hr Interval Summary Constitutional: improved Pain Control: mild Exam/Review of Systems Vital Signs Vitals Vital Signs Date Time Temp Pulse Resp B/P Pulse Ox O2 Delivery O2 Flow Rate FiO2 01/27/17 18:00 87 18 103/66 100 Mechanical Ventilator 01/27/17 16:00 98.7 01/27/17 08:00 30 Intake and Output 01/26/17 01/26/17 01/27/17 14:59 22:59 06:59 Intake Total 761.370 ml 461.0 ml 363.833 ml Output Total 610 ml 400 ml 475 ml Balance 151.370 ml 61.0 ml -111.167 ml Exam ENMT: mucosa pink and moist, nl external ears & nose, nl lips & teeth, nl nasal mucosa & septum Neck: non-tender, supple Respiratory: clear to auscultation, normal air movement Cardiovascular: nl pulses, regular rate and rhythm Gastrointestinal: nl liver, spleen, non-tender, soft Results Result Diagram: 01/27/17 0515 01/27/17 0515 JOSE GUAJARDO MD Jan 27, 2017 18:35
[2017-01-27] MEDS ORDERED: ROCURONIUM 50 MG INJ ONE (19:48)
--- NOTE | 2017-01-27 19:48 | HPN ---
Date/Time of Note Date/Time of Note DATE: 01/27/17 TIME: 19:48 Interval H&P Admission Note Pt. seen H&P reviewed: No system changes KRYSTA MARIO MD Jan 27, 2017 19:48
[2017-01-27] MEDS ORDERED: CEFAZOLIN 1 GM/50 ML (PMX) 100 ML IVPB ONE (19:57)
--- NOTE | 2017-01-27 20:13 | OPPN ---
Date/Time of Note Date/Time of Note DATE: 01/27/17 TIME: 20:11 Proc Note GI Procedure Date 01/27/17 Indication: other (Feeding difficulties) Pre-procedure Diagnosis Feeding difficulties Post-procedure Diagnosis Impression: Uneventful PEG Placement of Upper Sorbian 20 gastrostomy tube Plan: May use G-tube for medications tonight Start feedings tomorrow. Routine gastrostomy tube and site care . Procedure Performed: Other (EGD plus PEG) Surgeon KRYSTA MARIO MD See signature line Senior Living Sales Counselor none Anesthesia Type: MAC Anesthesiologist: ALYCE HODGE MD Tourniquet Time none EBL none Transfusion required none Biopsy 1: None Grafts/Implants none Tubes/Drains none Complication(s) none Disposition: other (ICU) Procedure Description After informed consent, with the patient/relatives understanding the procedure, its indications, potential risks and complications, including but not limited to : Allergic reaction, bleeding, perforation or infection, and all after all pertinent questions were answered to the patient's satisfaction, patient/ relative signed witnessed informed consent. Following this, premedication was administered slowly IV push under care of cardiovascular respiratory monitoring with pulse oximetry, and automatic blood pressure, and stove polisher. Once to sedative effect was achieved the patient was placed in the left lateral decubitus, the panendoscope was introduced and advanced under visual control. Careful examination of the upper gastrointestinal tract, both on insertion as well as withdrawal of the instrument disclosed following findings: ESOPHAGUS: The mucosa of the entire esophagus was carefully examined and showed the following findings: [The mucosa appears within normal limits. There is no evidence of esophagitis, varices, neoplasm or stricture. No hiatal hernia identified.] Stomach: Upon entrance to the stomach air was insufflated, the gastric bradford distended normally. The mucosa of the fundus, body and antrum of the stomach was carefully examined both head-on and on retroflexion, and showed the following findings: [The mucosa appears within normal limits with no abnormalities. There is no evidence of gastritis, ulcers or neoplasm.] Pylorus: The pylorus was carefully examined and showed the following findings: [The pylorus appears patent and within normal limits, with no evidence of gastric outlet obstruction.] Duodenum: The duodenal mucosa was carefully examined in the duodenal bulb as well as the second portion of the duodenum and showed the following findings: [The mucosa appears unremarkable with no evidence of duodenitis, ulcer or neoplasm.] The instrument was then brought back to the stomach and the anterior wall mid- body was identified by transillumination and "finger indentation", this area was then marked in the anterior wall of the abdomen, it was cleansed with Betadine and infiltrated with Xylocaine 1%. Following this a trocar needle was introduced into the gastric lumen under visual control with the endoscope, once in the gastric lumen a guide wire was advanced and secured with a polypectomy snare, at this point the endoscope was withdrawn bringing the guidewire out through the patient's mouth. Following this a Upper Sorbian #20 gastrostomy tube was introduced over the guidewire, with the Sacparag-Vinmarcy technique without difficulty , a small incision was performed in the skin to allow easy passage of the G-tube , once the position of the gastrostomy was confirmed, the external stopper and connectors were installed, and a clean dressing applied. The patient tolerated the procedure well and was transferred out of the endoscopy suite awake, and in good condition to continue recovery under observation, feedings will start in the next 12-24 hours and the discharge in the care will be instituted. Copies To: CC: KRYSTA MARIO MD, MORDO MD Jan 27, 2017 20:13
[2017-01-27] MEDS: traZODone 100 MG TAB PO SCH (20:37)
[2017-01-28] VITALS (36 sets, daily range): BP systolic 101–181; BP diastolic 62–132; PULSE 80–132; RESP 18–46
[2017-01-28] MEDS: ALBUTEROL 18 GM INHALER INH SCH ×4 (01:05→21:39)
[2017-01-28] MEDS: IPRATROPIUM (HFA) 12.9 GM INHALER INH SCH ×4 (01:05→21:39)
[2017-01-28] MEDS: LORAZEPAM (MDV) 100 MG in DEXTROSE 5% 50 ML IV SCH (02:59)
[2017-01-28] MEDS: FENTAnyl (DRIP) 1000 mcg/100mL 100 ML IV SCH ×3 (02:59→23:30)
[2017-01-28] MEDS: DIPHENHYDRAMINE 50 MG INJ IV SCH ×4 (04:59→23:31)
[2017-01-28] MEDS: HALOPERIDOL 5 MG INJ IV PRN ×2 (05:00→10:55)
[2017-01-28] MEDS: QUETIAPINE 100 MG TAB NGT SCH ×4 (05:00→23:32)
[2017-01-28] MEDS: METOCLOPRAMIDE 10 MG INJ IV SCH ×4 (05:00→23:31)
[2017-01-28] MEDS: LANSOPRAZOLE 30 MG CAP NGT SCH ×2 (05:00→17:52)
[2017-01-28 05:07] LABS: BASOPHIL # 0.1 10^3/ul (0.0-0.1); BASOPHILS % 1.3 % (0.0-2.0); EOSINOPHILS # 0.6 10^3/ul (0.0-0.5); EOSINOPHILS % 6.3 % (0.0-7.0); HEMATOCRIT 30.4 % (42.0-52.0); HEMOGLOBIN 9.5 g/dl (14.0-18.0); LYMPHOCYTES # 1.2 10^3/ul (0.8-2.9); LYMPHOCYTES % 13.1 % (15.0-51.0); MEAN CORPUSCULAR HEMOGLOBIN 28.2 pg (29.0-33.0); MEAN CORPUSCULAR HGB CONC 31.3 g/dl (32.0-37.0); MEAN CORPUSCULAR VOLUME 90.2 fl (82.0-101.0); MEAN PLATELET VOLUME 11.7 fl (7.4-10.4); MONOCYTE # 0.8 10^3/ul (0.3-0.9); MONOCYTES % 8.8 % (0.0-11.0); NEUTROPHIL # 6.5 10^3/ul (1.6-7.5); NEUTROPHILS % 69.9 % (39.0-77.0); PLATELET COUNT 307 10^3/UL (140-415); RED BLOOD COUNT 3.37 10^6/ul (4.70-6.10); RED CELL DISTRIBUTION WIDTH 14.3 % (11.5-14.5); WHITE BLOOD COUNT 9.3 10^3/ul (4.8-10.8)
[2017-01-28 05:31] LABS: MAGNESIUM 1.9 mg/dl (1.7-2.5)
[2017-01-28 05:32] LABS: CREATININE 0.75 mg/dl (0.61-1.24); POTASSIUM 3.9 mmol/L (3.5-5.1)
[2017-01-28] MEDS ORDERED: CEFAZOLIN 1 GM INJ ONE (07:00)
[2017-01-28] MEDS: POLYETHYLENE GLYCOL 17 GM PACKET NGT SCH (08:26)
[2017-01-28] MEDS: DOCUSATE SODIUM 10 MG/ML (10ML CUP) NGT SCH ×2 (08:26→20:59)
[2017-01-28] MEDS: VALPROIC ACID LIQUID CUP 250 MG/5 ML CUP NGT SCH ×3 (08:26→20:59)
[2017-01-28] MEDS: carBAMAZepine SUSP 20 MG/ML POSYG NGT SCH ×2 (08:52→21:01)
--- NOTE | 2017-01-28 09:28 | PN ---
Date/Time of Note Date/Time of Note DATE: 01/28/17 TIME: 09:23 Assessment/Plan VTE Prophylaxis VTE Prophylaxis Intervention: SCD's Lines/Catheters IV Catheter Type (from Nrsg): PICC Line Central line still needed: Yes (For IV access and drips) Urinary Cath still in place: Yes Reason Cath still needed: other (indicate) (While intubated) Assessment/Plan Assessment/Plan 46 yo male with: 1. Severe encephalopathy 2ry to drug abuse likely Bath salts and/or synthetic marijuana and also bipolar disorder with violent behaviors and noncompliance with medications per previous psychiatry notes. No other clear etiology so far of encephalopathic, neurology on board, CT head 2 since admission are both wnl, EEG x2 showing encephalopathy, MRI brain wnl. Patient still with episodes of agitation and requiring multiple sedating agents. Reconciliation and titration of her psychiatric medications have been done, so far still unable to successfully de-escalate on the sedation. After discussion on Wednesday,01/25/17, between the ICU director and patient's IPA, it is established that the patient is unstable for transfer and needs his tracheostomy and PEG tube placement here at [facility], appropriate consults have been placed. S/p G tube placement yesterday Awaiting Trach today On Ativan drip, fentanyl drip, Haldol as needed. Off propofol for now. Agitated Continue IV thiamine. 2. Acute respiratory Failure 2ry to severe Encephalopathy from Drug overuse, intubated, sedated and paralysed. Patient was briefly extubated last week for 2 -1/2 hours but had to be reintubated due to inability to protect his airway, of note he was still on sedating agents. WBC within normal now and chest x-ray has been better but with compressive atelectasis. Still on FiO2 of 30% and PEEP of 7. Still on fentanyl, Haldol prn, and Ativan gtt. Patient has been restarted on Seroquel and Tegretol dosing adjusted to outpatient dosing. Trazodone resumed at night. Tracheostomy today per Dr Fernando. 3. Bipolar disorder: Likely noncompliant with psychiatric medications. Medication resumed and adjusted to outpatient dosing based on the note from psychiatry 5 days prior to admission that were able to obtain last Wednesday, patient Seroquel can even be titrated higher, according to the notes he was on Seroquel XR, increased to 1000 mg nightly per the latest note. Now on Seroquel to 200 mg QID. Increased carbamazepine to 400 mg twice daily. Continue Haldol prn and on Ativan drip. Changed Depakene to 250 TID (patient on Depakote ER 500 mg nightly) Again per the girlfriend it is very likely that the patient was not fully compliant. 4. Right foot Lisfranc fracture: Pain control and ? splint 5. Anemia: Hemoglobin stable at approx 10, status post 1 unit pRBC on 01/15. SCDs to lower extremities. On Reglan up to 10 mg IV q6 and proton pump inhibitors. Tolerating tube feedings so far. Prophylaxis: SCDs for DVT prophylaxis, Protonix for GI prophylaxis Disposition: Still in ICU, re-intubated, sedated, so far unable to weaning off sedation or vent. Family meeting 01/14 did confirm that patient is noncompliant with medication, unfortunately he does have significant behavioral issues including violent behavior. He is a bipolar that seems to be mostly manic most of the time and noncompliant with medications at all. Drug use is an issue. We have been unable to successfully wean the patient off the ventilator, he has failed extubation once. Therefore it is the opinion of the duty officer and current team that the patient will need tracheostomy along with PEG tube placement. Dr. Woodard did have a discussion with the patient's IPA, they are in agreement that the patient is not stable for transfer and needs tracheostomy and PEG tube placement here at [facility] with the hope that he will be calmer and will be able to wean him off the sedating agents. Jayda, the patient's 1/2 sister and currently DPOA has been informed of the plan, she is in agreement to proceed with tracheostomy and PEG tube placement, she has given consent this morning. She also has made us understand that she will not be involved in the primary caregiving of patient and he will need to be placed at the time of discharge no matter what his condition. Subjective 24 Hr Interval Summary Free Text/Dictation Status post G-tube placement yesterday by Dr. Miranda Awaiting tracheostomy from Dr. Diana today On fentanyl and Ativan, currently agitated pulling against restraints and chewing on the ET tube Exam/Review of Systems Vital Signs Vitals Vital Signs Date Time Temp Pulse Resp B/P Pulse Ox O2 Delivery O2 Flow Rate FiO2 01/28/17 08:00 30 01/28/17 08:00 99.1 80 20 109/78 100 Mechanical Ventilator Intake and Output 01/27/17 01/27/17 01/28/17 15:00 23:00 07:00 Intake Total 173.5 ml 1210 ml 736 ml Output Total 430 ml 320 ml 295 ml Balance -256.5 ml 890 ml 441 ml Exam Constitutional: other (Currently agitated in bed onto sedating agents, intubated, restrained) Respiratory: normal air movement, other (Mechanical ventilation) Cardiovascular: nl pulses, regular rate and rhythm Gastrointestinal: non-tender, other (Status post G-tube placement with abdominal binder in place), soft Musculoskeletal: nl extremities to inspection Extremities: normal pulses, other (No edema, clubbing or cyanosis) Neurological: other (On fentanyl and propofol, agitated in bed and restrained) Results Result Diagram: 01/28/1744601/28/17446 Results 24 hrs Laboratory Tests Test 01/28/17 04:30 01/28/17 04:47 Phosphorus Level 5.0 H Magnesium Level 1.9 White Blood Count 9.3 Red Blood Count 3.37 L Hemoglobin 9.5 L Hematocrit 30.4 L Mean Corpuscular Volume 90.2 Mean Corpuscular Hemoglobin 28.2 L Mean Corpuscular Hemoglobin Concent 31.3 L Red Cell Distribution Width 14.3 Platelet Count 307 Mean Platelet Volume 11.7 H Neutrophils % 69.9 Lymphocytes % 13.1 L Monocytes % 8.8 Eosinophils % 6.3 Basophils % 1.3 Nucleated Red Blood Cells % 0.0 Neutrophils # 6.5 Lymphocytes # 1.2 Monocytes # 0.8 Eosinophils # 0.6 H Basophils # 0.1 Nucleated Red Blood Cells # 0.0 Sodium Level 148 H Potassium Level 3.9 Chloride Level 108 Carbon Dioxide Level 31 Anion Gap 13 Blood Urea Nitrogen 15 Creatinine 0.75 Glucose Level 108 Calcium Level 9.0 Medications Medications Current Medications Acetaminophen (Tylenol Tab) 650 mg Q4H PRN PO pain/fever Last administered on 01/11/17t 07:46; Admin Dose 650 MG; Start 12/31/16 at 01:00 Hydralazine HCl (Apresoline) 25 mg Q6H PRN PO sbp>160; Start 12/31/16 at 01:00 Enalaprilat (Vasotec Iv) 1.25 mg Q6H PRN IV sbp>160; Start 12/31/16 at 01:00 Ondansetron HCl (Zofran Inj) 4 mg Q4H PRN IV nausea; Start 12/31/16 at 01:00 Hydralazine HCl (Apresoline) 10 mg Q4H PRN IV ELEVATED SYSTOLIC BP Last administered on 01/13/17 16:25; Admin Dose 10 MG; Start 12/31/16 at 05:30 Labetalol HCl (Labetalol) 10 mg Q4H PRN IV SBP GREATER THAN 160 Last administered on 01/10/17 22:33; Admin Dose 10 MG; Start 01/01/17 at 12:00 IV Flush (NS 10 ml) 10 ml PRN PRN IV IV PROTOCOL; Start 01/02/17 at 17:00 Lorazepam 2 mg 2 mg Q2H PRN IV PRN Agitation. Last administered on 01/22/17 08 :54; Admin Dose 2 MG; Start 01/04/17 at 09:00 Propofol (Diprivan) 100 ml @ 3.537 mls/ hr Q12H IV Last administered on 10:56; Admin Dose 1.769 MLS/HR; Start 01/10/17 at 09:30 Metoclopramide HCl (Reglan) 10 mg Q6 IV Last administered on 01/28/17 05:00; Admin Dose 10 MG; Start 01/11/17 at 12:00 Trazodone HCl 150 mg 150 mg HS PO Last administered on 01/27/17 20:37; Admin Dose 150 MG; Start 01/15/17 at 21:00 Thiamine HCl/ Dextrose (Vitamin B1/D5W) 101 ml @ 202 mls/hr DAILY IV Last administered on 01/27/17 09:57; Admin Dose 202 MLS/HR; Start 01/18/17 at 13:30 Polyethylene Glycol 17 gm 17 gm DAILY NGT Last administered on 01/28/17 08:26 ; Admin Dose 17 GM; Start 01/19/17 at 10:00 Fentanyl (Sublimaze) 100 ml @ 2.5 mls/hr TITRATE IV Last administered on 02:59; Admin Dose 10 MLS/HR; Start 01/19/17 at 13:00 Carbamazepine 400 mg 400 mg BID NGT Last administered on 01/28/17 08:52; Admin Dose 400 MG; Start 01/22/17 at 21:00 Lorazepam/Dextrose (Ativan/D5W) 100 ml @ 0 mls/hr TITRATE IV Last administered on 01/28/17 02:59; Admin Dose 7 MLS/HR; Start 01/22/17 at 13:00 Haloperidol (Haldol) 5 mg Q6 PRN IV AGITATION Last administered on 01/28/17 05 :00; Admin Dose 5 MG; Start 01/23/17 at 11:00 Valproate Sodium (Depakene Liquid Cup) 250 mg TID NGT Last administered on 01/28 08:26; Admin Dose 250 MG; Start 01/24/17 at 13:00 Lansoprazole (Prevacid) 30 mg BID@06,18 NGT Last administered on 01/28/17 05: 00; Admin Dose 30 MG; Start 01/24/17 at 18:00 Diphenhydramine HCl (Benadryl) 25 mg Q6H IV Last administered on 01/28/17 04: 59; Admin Dose 25 MG; Start 01/25/17 at 17:00 Docusate Sodium (Colace Liquid Cup) 100 mg BID NGT Last administered on 08:26; Admin Dose 100 MG; Start 01/25/17 at 21:00 Quetiapine Fumarate 200 mg 200 mg Q6 NGT Last administered on 01/28/17 05:00; Admin Dose 200 MG; Start 01/27/17 at 12:00 Dextrose/Sodium Chloride (D5-1/2ns) 1,000 ml @ 75 mls/hr [id number] IV Last administered on 01/27/17 23:00; Admin Dose 75 MLS/HR; Start 01/27/17 at 09:30 TRENT NEWMAN Jan 28, 2017 09:28
[2017-01-28] MEDS: PROPOFOL 100 ML IV SCH ×4 (09:30→21:47)
--- NOTE | 2017-01-28 10:31 | CONS ---
Date/Time of Note Date/Time of Note DATE: 01/28/17 TIME: 10:30 Consult Date/Type/Reason Admit Date/Time Dec 31, 2016 at 00:30 Initial Consult Date 12/31/16 Type of Consultation: Pulm/CCM Ordering Provider: JEAN MARIE BRAGG MD Subjective Continues Ativan and fentanyl. Pending tracheostomy. Objective Vital Signs Date Time Temp Pulse Resp B/P Pulse Ox O2 Delivery O2 Flow Rate FiO2 01/28/17 08:00 30 01/28/17 08:00 81 01/28/17 08:00 99.1 20 109/78 100 Mechanical Ventilator Intake and Output 01/27/17 01/27/17 01/28/17 14:59 22:59 06:59 Intake Total 187.0 ml 1118 ml 736 ml Output Total 415 ml 325 ml 340 ml Balance -228.0 ml 793 ml 396 ml Exam GENERAL: Well-nourished well-developed gentleman orally intubated on mechanical ventilation VITAL SIGNS: see below. HEENT: Pupils equal, round, and reactive to light. CARDIAC: S1, S2, 1/6 systolic ejection murmur CHEST: Diminished air entry bilaterally. ABDOMEN: Mildly distended. Bowel sounds present no guarding or rebound EXTREMITIES: No cyanosis, clubbing edema +1 NEUROLOGIC: Generalized weakness Results/Medications Result Diagram: 01/28/1744601/28/17446 Results 24 hrs Laboratory Tests Test 01/28/17 04:30 01/28/17 04:47 Phosphorus Level 5.0 H Magnesium Level 1.9 White Blood Count 9.3 Red Blood Count 3.37 L Hemoglobin 9.5 L Hematocrit 30.4 L Mean Corpuscular Volume 90.2 Mean Corpuscular Hemoglobin 28.2 L Mean Corpuscular Hemoglobin Concent 31.3 L Red Cell Distribution Width 14.3 Platelet Count 307 Mean Platelet Volume 11.7 H Neutrophils % 69.9 Lymphocytes % 13.1 L Monocytes % 8.8 Eosinophils % 6.3 Basophils % 1.3 Nucleated Red Blood Cells % 0.0 Neutrophils # 6.5 Lymphocytes # 1.2 Monocytes # 0.8 Eosinophils # 0.6 H Basophils # 0.1 Nucleated Red Blood Cells # 0.0 Sodium Level 148 H Potassium Level 3.9 Chloride Level 108 Carbon Dioxide Level 31 Anion Gap 13 Blood Urea Nitrogen 15 Creatinine 0.75 Glucose Level 108 Calcium Level 9.0 Medications Current Medications Acetaminophen (Tylenol Tab) 650 mg Q4H PRN PO pain/fever Last administered on 01/11/17 07:46; Admin Dose 650 MG; Start 12/31/16 at 01:00 Hydralazine HCl (Apresoline) 25 mg Q6H PRN PO sbp>160; Start 12/31/16 at 01:00 Enalaprilat (Vasotec Iv) 1.25 mg Q6H PRN IV sbp>160; Start 12/31/16 at 01:00 Ondansetron HCl (Zofran Inj) 4 mg Q4H PRN IV nausea; Start 12/31/16 at 01:00 Hydralazine HCl (Apresoline) 10 mg Q4H PRN IV ELEVATED SYSTOLIC BP Last administered on 01/13/17 16:25; Admin Dose 10 MG; Start 12/31/16 at 05:30 Labetalol HCl (Labetalol) 10 mg Q4H PRN IV SBP GREATER THAN 160 Last administered on 01/10/17 22:33; Admin Dose 10 MG; Start 01/01/17 at 12:00 IV Flush (NS 10 ml) 10 ml PRN PRN IV IV PROTOCOL; Start 01/02/17 at 17:00 Lorazepam 2 mg 2 mg Q2H PRN IV PRN Agitation. Last administered on 01/22/17 08 :54; Admin Dose 2 MG; Start 01/04/17 at 09:00 Propofol (Diprivan) 100 ml @ 3.537 mls/ hr Q12H IV Last administered on 10:56; Admin Dose 1.769 MLS/HR; Start 01/10/17 at 09:30 Metoclopramide HCl (Reglan) 10 mg Q6 IV Last administered on 01/28/17 05:00; Admin Dose 10 MG; Start 01/11/17 at 12:00 Trazodone HCl 150 mg 150 mg HS PO Last administered on 01/27/17 20:37; Admin Dose 150 MG; Start 01/15/17 at 21:00 Thiamine HCl/ Dextrose (Vitamin B1/D5W) 101 ml @ 202 mls/hr DAILY IV Last administered on 01/27/17 09:57; Admin Dose 202 MLS/HR; Start 01/18/17 at 13:30 Polyethylene Glycol 17 gm 17 gm DAILY NGT Last administered on 01/28/17 08:26 ; Admin Dose 17 GM; Start 01/19/17 at 10:00 Fentanyl (Sublimaze) 100 ml @ 2.5 mls/hr TITRATE IV Last administered on 02:59; Admin Dose 10 MLS/HR; Start 01/19/17 at 13:00 Carbamazepine 400 mg 400 mg BID NGT Last administered on 01/28/17 08:52; Admin Dose 400 MG; Start 01/22/17 at 21:00 Lorazepam/Dextrose (Ativan/D5W) 100 ml @ 0 mls/hr TITRATE IV Last administered on 01/28/17 02:59; Admin Dose 7 MLS/HR; Start 01/22/17 at 13:00 Haloperidol (Haldol) 5 mg Q6 PRN IV AGITATION Last administered on 01/28/17 05 :00; Admin Dose 5 MG; Start 01/23/17 at 11:00 Valproate Sodium (Depakene Liquid Cup) 250 mg TID NGT Last administered on 01/28 08:26; Admin Dose 250 MG; Start 01/24/17 at 13:00 Lansoprazole (Prevacid) 30 mg BID@06,18 NGT Last administered on 01/28/17 05: 00; Admin Dose 30 MG; Start 01/24/17 at 18:00 Diphenhydramine HCl (Benadryl) 25 mg Q6H IV Last administered on 01/28/17 04: 59; Admin Dose 25 MG; Start 01/25/17 at 17:00 Docusate Sodium (Colace Liquid Cup) 100 mg BID NGT Last administered on 08:26; Admin Dose 100 MG; Start 01/25/17 at 21:00 Quetiapine Fumarate 200 mg 200 mg Q6 NGT Last administered on 01/28/17 05:00; Admin Dose 200 MG; Start 01/27/17 at 12:00 Dextrose/Sodium Chloride (D5-1/2ns) 1,000 ml @ 75 mls/hr [id number] IV Last administered on 01/27/17 23:00; Admin Dose 75 MLS/HR; Start 01/27/17 at 09:30 Assessment/Plan Chief Complaint/Hosp Course IMP: 1. 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 Acute Lung Injury/ARDS 3. History of drug overdose 4. 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 5. ALEX 6. Anemia 7. Required ongoing sedation with Ativan, fentanyl and Seroquel. RECS: 1. Pending tracheostomy and PEG tube. 2. Continue current vent settings for now 3. Tube feeds/Free H20 4. Minimize sedatives as tolerated 5. Continue antipsychotics 35 min cc time Problems: BRIANNA SAAVEDRA [facility], [facility] Jan 28, 2017 10:31
[2017-01-28] MEDS: LORAZEPAM 2 MG INJ IV PRN ×2 (11:09→14:58)
[2017-01-28] MEDS: DEXTROSE 5% IV SCH (11:19)
[2017-01-28] MEDS: THIAMINE IV SCH (11:19)
--- NOTE | 2017-01-28 11:52 | PN ---
Date/Time of Note Date/Time of Note DATE: 01/28/17 TIME: 11:48 Assessment/Plan VTE Prophylaxis VTE Prophylaxis Intervention: SCD's Lines/Catheters IV Catheter Type (from Nrsg): PICC Line Central line still needed: Yes (medication) Urinary Cath still in place: Yes Reason Cath still needed: other (indicate) (monitor output) Assessment/Plan Chief Complaint/Hosp Course Assessment: Anemia-improved Severe encephalopathy Likely secondary to drug use Acute Respiratory failure Intubated and sedated Extubation with Bipap attempted and failed 01/13 after 2 hours pt reintubated Dysphagia with peg placement 01/27/17 Impression: Uneventful PEG Placement of Iranian 20 gastrostomy tube Plan: Plan for Trach placement today Ok to start Feeding once ok with surgery Routine gastrostomy tube and site care Patient seen in collaboration with Dr. Miranda Subjective: Course reviewed with nursing staff Patient interviewed and examined All labs, imaging and other results reviewed Patient with increase agitation, plan for trach placement today remains NPO, ok to start feeding when ok with surgery Exam Constitutional: well developed, sedated and intubated Psych: unable to assess Head: atraumatic, normocephalic Eyes: EOMI, nl conjunctiva, nl lids ENMT: nl external ears & nose, nl lips & teeth, nl nasal mucosa & septum Neck: non-tender, supple Respiratory: Bilateral Rales Cardiovascular: nl pulses, regular rate and rhythm Gastrointestinal: hypoactive bowel sounds, soft Problems: Exam/Review of Systems Vital Signs Vitals Vital Signs Date Time Temp Pulse Resp B/P Pulse Ox O2 Delivery O2 Flow Rate FiO2 01/28/17 10:55 94 25 100 30 01/28/17 08:00 99.1 109/78 Mechanical Ventilator Intake and Output 01/27/17 01/27/17 01/28/17 15:00 23:00 07:00 Intake Total 173.5 ml 1210 ml 736 ml Output Total 430 ml 320 ml 355 ml Balance -256.5 ml 890 ml 381 ml Results Result Diagram: 01/28/17 0447 01/28/17 0447 Results 24 hrs Laboratory Tests Test 01/28/17 04:30 01/28/17 04:47 Phosphorus Level 5.0 H Magnesium Level 1.9 White Blood Count 9.3 Red Blood Count 3.37 L Hemoglobin 9.5 L Hematocrit 30.4 L Mean Corpuscular Volume 90.2 Mean Corpuscular Hemoglobin 28.2 L Mean Corpuscular Hemoglobin Concent 31.3 L Red Cell Distribution Width 14.3 Platelet Count 307 Mean Platelet Volume 11.7 H Neutrophils % 69.9 Lymphocytes % 13.1 L Monocytes % 8.8 Eosinophils % 6.3 Basophils % 1.3 Nucleated Red Blood Cells % 0.0 Neutrophils # 6.5 Lymphocytes # 1.2 Monocytes # 0.8 Eosinophils # 0.6 H Basophils # 0.1 Nucleated Red Blood Cells # 0.0 Sodium Level 148 H Potassium Level 3.9 Chloride Level 108 Carbon Dioxide Level 31 Anion Gap 13 Blood Urea Nitrogen 15 Creatinine 0.75 Glucose Level 108 Calcium Level 9.0 Medications Medications Current Medications Acetaminophen (Tylenol Tab) 650 mg Q4H PRN PO pain/fever Last administered on 01/11/17 07:46; Admin Dose 650 MG; Start 12/31/16 at 01:00 Hydralazine HCl (Apresoline) 25 mg Q6H PRN PO sbp>160; Start 12/31/16 at 01:00 Enalaprilat (Vasotec Iv) 1.25 mg Q6H PRN IV sbp>160; Start 12/31/16 at 01:00 Ondansetron HCl (Zofran Inj) 4 mg Q4H PRN IV nausea; Start 12/31/16 at 01:00 Hydralazine HCl (Apresoline) 10 mg Q4H PRN IV ELEVATED SYSTOLIC BP Last administered on 01/13/17 16:25; Admin Dose 10 MG; Start 12/31/16 at 05:30 Labetalol HCl (Labetalol) 10 mg Q4H PRN IV SBP GREATER THAN 160 Last administered on 01/10/17 22:33; Admin Dose 10 MG; Start 01/01/17 at 12:00 IV Flush (NS 10 ml) 10 ml PRN PRN IV IV PROTOCOL; Start 01/02/17 at 17:00 Lorazepam 2 mg 2 mg Q2H PRN IV PRN Agitation. Last administered on 01/28/17 11 :09; Admin Dose 2 MG; Start 01/04/17 at 09:00 Propofol (Diprivan) 100 ml @ 3.537 mls/ hr Q12H IV Last administered on 10:56; Admin Dose 1.769 MLS/HR; Start 01/10/17 at 09:30 Metoclopramide HCl (Reglan) 10 mg Q6 IV Last administered on 01/28/17 05:00; Admin Dose 10 MG; Start 01/11/17 at 12:00 Trazodone HCl 150 mg 150 mg HS PO Last administered on 01/27/17 20:37; Admin Dose 150 MG; Start 01/15/17 at 21:00 Thiamine HCl/ Dextrose (Vitamin B1/D5W) 101 ml @ 202 mls/hr DAILY IV Last administered on 01/28/17 11:19; Admin Dose 202 MLS/HR; Start 01/18/17 at 13:30 Polyethylene Glycol 17 gm 17 gm DAILY NGT Last administered on 01/28/17 08:26 ; Admin Dose 17 GM; Start 01/19/17 at 10:00 Fentanyl (Sublimaze) 100 ml @ 2.5 mls/hr TITRATE IV Last administered on 02:59; Admin Dose 10 MLS/HR; Start 01/19/17 at 13:00 Carbamazepine 400 mg 400 mg BID NGT Last administered on 01/28/17 08:52; Admin Dose 400 MG; Start 01/22/17 at 21:00 Lorazepam/Dextrose (Ativan/D5W) 100 ml @ 0 mls/hr TITRATE IV Last administered on 01/28/17 02:59; Admin Dose 7 MLS/HR; Start 01/22/17 at 13:00 Haloperidol (Haldol) 5 mg Q6 PRN IV AGITATION Last administered on 01/28/17 10 :55; Admin Dose 5 MG; Start 01/23/17 at 11:00 Valproate Sodium (Depakene Liquid Cup) 250 mg TID NGT Last administered on 01/28 08:26; Admin Dose 250 MG; Start 01/24/17 at 13:00 Lansoprazole (Prevacid) 30 mg BID@06,18 NGT Last administered on 01/28/17 05: 00; Admin Dose 30 MG; Start 01/24/17 at 18:00 Diphenhydramine HCl (Benadryl) 25 mg Q6H IV Last administered on 01/28/17 10: 56; Admin Dose 25 MG; Start 01/25/17 at 17:00 Docusate Sodium (Colace Liquid Cup) 100 mg BID NGT Last administered on 08:26; Admin Dose 100 MG; Start 01/25/17 at 21:00 Quetiapine Fumarate 200 mg 200 mg Q6 NGT Last administered on 01/28/17 05:00; Admin Dose 200 MG; Start 01/27/17 at 12:00 Dextrose/Sodium Chloride (D5-1/2ns) 1,000 ml @ 75 mls/hr [id number] IV Last administered on 01/27/17 23:00; Admin Dose 75 MLS/HR; Start 01/27/17 at 09:30 JULY MCKENNA Jan 28, 2017 11:52
[2017-01-28] MEDS: DEXTROSE 5%-0.45% NACL 1,000 ML IV SCH (12:00)
[2017-01-28] MEDS: hydrALAzine 20 MG INJ IV PRN (14:57)
[2017-01-28] MEDS ORDERED: DIAZEPAM 5 MG/ML SYG IM ONE (15:00)
[2017-01-28] MEDS ORDERED: ROCURONIUM 50 MG INJ ONE (18:27)
[2017-01-28] MEDS ORDERED: MIDAZOLAM 1 MG/ML 2 ML INJ ONE (18:27)
[2017-01-28] MEDS ORDERED: EPHEDrine SULFATE 50 MG/5 ML SYG ONE (18:27)
[2017-01-28] MEDS ORDERED: CEFAZOLIN 1 GM/50 ML (PMX) 100 ML IVPB ONE (18:52)
[2017-01-28] MEDS ORDERED: CEFAZOLIN 2 GM/50 ML (PMX) 50 ML IVPB ONE (19:00)
--- NOTE | 2017-01-28 19:08 | OPR ---
Date/Time of Note Date/Time of Note DATE: 01/28/17 TIME: 19:07 Operative Report Procedure Date: Jan 28, 2017 Preoperative Diagnosis resp Failure Postoperative Diagnosis same Operation/Procedure Performed Tracheostomy Surgeon see signature line [employer] no Anesthesia Type: general Estimated Blood Loss: minimal Transfusion none Specimen no Grafts/Implants none Complications none Pt Condition Post Procedure: critical Procedure Description dictated JOSE GUAJARDO MD Jan 28, 2017 19:08
--- NOTE | 2017-01-28 19:43 | OPR ---
DATE OF OPERATION: PREOPERATIVE DIAGNOSIS: Respiratory failure. POSTOPERATIVE DIAGNOSIS: Respiratory failure. OPERATION PERFORMED: Tracheostomy. SURGEON: Jose Fernando MD ANESTHESIA: General. CONSENT: Risks, benefits, complications, alternative therapies explained to the patient's family, c onsent obtained. OPERATIVE TECHNIQUE: The patient was placed in supine position, prepped and draped in usual sterile fashion. Time-out was called, antibiotics were given and I started. I made a 2 cm incision 1 fing erbreadth superior to the sternal notch. Incision was taken down to the subcutaneous tissue, which was then opened using Metzenbaum scissors. Access was gained into the trachea. Guidewire was advan vazquez through without any difficulty. Subcutaneous tissues were dilated using progressively larger di lators. Endotracheal tube removed, 8 cuffed tracheostomy tube was advanced into the trachea, secure d to skin using 4 trach ties, which were done to loosely, 4-0 nylon sutures and a trach tie. Patien t tolerated procedure well. Dictated By: JOSE VALLDAARES/SHANELLE Conf#: [id number] DID#: [id number]
[2017-01-28] MEDS: traZODone 100 MG TAB PO SCH (20:59)
[2017-01-29] VITALS (38 sets, daily range): BP systolic 99–165; BP diastolic 63–114; PULSE 84–125; RESP 19–31
[2017-01-29] MEDS: ACETAMINOPHEN 325 MG TAB PO PRN ×2 (00:25→21:01)
[2017-01-29] MEDS: POTASSIUM CHLORIDE 50 ML IVPB PRN (00:25)
[2017-01-29] MEDS: DEXTROSE 5%-0.45% NACL 1,000 ML IV SCH ×2 (00:30→14:35)
[2017-01-29] MEDS: IPRATROPIUM (HFA) 12.9 GM INHALER INH SCH ×4 (01:18→19:16)
[2017-01-29] MEDS: ALBUTEROL 18 GM INHALER INH SCH ×4 (01:18→19:16)
[2017-01-29] MEDS: LORAZEPAM (MDV) 100 MG in DEXTROSE 5% 50 ML IV SCH ×3 (01:32→22:58)
[2017-01-29] MEDS: DIPHENHYDRAMINE 50 MG INJ IV SCH ×4 (04:14→22:59)
[2017-01-29] MEDS: PROPOFOL 100 ML IV SCH ×3 (04:30→21:32)
[2017-01-29 06:17] LABS: BASOPHIL # 0.1 10^3/ul (0.0-0.1); BASOPHILS % 1.2 % (0.0-2.0); EOSINOPHILS # 0.4 10^3/ul (0.0-0.5); EOSINOPHILS % 5.7 % (0.0-7.0); HEMATOCRIT 29.8 % (42.0-52.0); HEMOGLOBIN 9.3 g/dl (14.0-18.0); LYMPHOCYTES # 0.8 10^3/ul (0.8-2.9); MEAN CORPUSCULAR HEMOGLOBIN 28.3 pg (29.0-33.0); MEAN CORPUSCULAR HGB CONC 31.2 g/dl (32.0-37.0); MEAN CORPUSCULAR VOLUME 90.6 fl (82.0-101.0); MEAN PLATELET VOLUME 12.1 fl (7.4-10.4); MONOCYTE # 0.7 10^3/ul (0.3-0.9); MONOCYTES % 10.3 % (0.0-11.0); NEUTROPHIL # 4.6 10^3/ul (1.6-7.5); PLATELET COUNT 299 10^3/UL (140-415); RED BLOOD COUNT 3.29 10^6/ul (4.70-6.10); RED CELL DISTRIBUTION WIDTH 14.3 % (11.5-14.5); WHITE BLOOD COUNT 6.5 10^3/ul (4.8-10.8)
[2017-01-29] MEDS: QUETIAPINE 100 MG TAB NGT SCH ×3 (06:34→17:58)
[2017-01-29] MEDS: LANSOPRAZOLE 30 MG CAP NGT SCH ×2 (06:34→17:58)
[2017-01-29] MEDS: METOCLOPRAMIDE 10 MG INJ IV SCH ×3 (06:34→17:57)
[2017-01-29 06:58] LABS: MAGNESIUM 2.1 mg/dl (1.7-2.5); PHOSPHORUS 4.9 mg/dl (2.5-4.9)
[2017-01-29 07:03] LABS: CALCIUM 8.6 mg/dl (8.4-10.2); CREATININE 0.72 mg/dl (0.61-1.24); POTASSIUM 3.7 mmol/L (3.5-5.1)
[2017-01-29] MEDS: DOCUSATE SODIUM 10 MG/ML (10ML CUP) NGT SCH ×2 (08:48→20:08)
[2017-01-29] MEDS: VALPROIC ACID LIQUID CUP 250 MG/5 ML CUP NGT SCH ×3 (08:48→20:08)
[2017-01-29] MEDS: POLYETHYLENE GLYCOL 17 GM PACKET NGT SCH (08:48)
[2017-01-29] MEDS: carBAMAZepine SUSP 20 MG/ML POSYG NGT SCH ×2 (08:52→20:09)
[2017-01-29] MEDS: THIAMINE IV SCH (08:53)
[2017-01-29] MEDS: DEXTROSE 5% IV SCH (08:53)
--- NOTE | 2017-01-29 09:34 | PN ---
Date/Time of Note Date/Time of Note DATE: 01/29/17 TIME: 09:17 Assessment/Plan VTE Prophylaxis VTE Prophylaxis Intervention: SCD's Lines/Catheters IV Catheter Type (from Nrs): PICC Line Central line still needed: Yes (for IV access ) Urinary Cath still in place: Yes Reason Cath still needed: other (indicate) (on Vent and sedated ) Assessment/Plan Assessment/Plan 46 yo male with: 1. Severe encephalopathy 2ry to drug abuse likely Bath salts and/or synthetic marijuana and also bipolar disorder with violent behaviors and noncompliance with medications per previous psychiatry notes. No other clear etiology so far of encephalopathic, neurology on board, CT head 2 since admission are both wnl, EEG x2 showing encephalopathy, MRI brain wnl. Patient still with episodes of agitation and requiring multiple sedating agents. Reconciliation and titration of her psychiatric medications have been done, so far still unable to successfully de-escalate on the sedation. S/p Tracheostomy POD#1 and PEG tube placement POD#2. On Ativan drip, fentanyl drip, Haldol as needed. On propofol overnight but d/c' d this AM. Agitated but attempting to titrate Ativan and Fentanyl drips down. Continue IV thiamine. 2. Acute respiratory Failure 2ry to severe Encephalopathy from Drug overuse, intubated, sedated and paralysed. Patient was briefly extubated last week for 2 -1/2 hours but had to be reintubated due to inability to protect his airway, of note he was still on sedating agents. WBC within normal now and chest x-ray has been better but with compressive atelectasis. Still on FiO2 of 30% and PEEP of 7. Still on fentanyl gtt, Ativan gtt and Haldol prn. Patient has been restarted on Seroquel and Tegretol dosing adjusted to outpatient dosing. Trazodone resumed at night. S/p Tracheostomy POD#1 and PEG tube POD#2. 3. Bipolar disorder: Likely noncompliant with psychiatric medications. Medication resumed and adjusted to outpatient dosing based on the note from psychiatry 5 days prior to admission that were able to obtain last Wednesday, patient Seroquel can even be titrated higher, according to the notes he was on Seroquel XR, increased to 1000 mg nightly per the latest note. Now on Seroquel to 200 mg QID. Increased carbamazepine to 400 mg twice daily. Continue Haldol prn and on Ativan drip. Changed Depakene to 250 TID (patient on Depakote ER 500 mg nightly) Again per the girlfriend it is very likely that the patient was not fully compliant. 4. Right foot Lisfranc fracture: Pain control and ? splint 5. Anemia: Hemoglobin stable at approx 9.3, status post 1 unit pRBC on 01/15. SCDs to lower extremities. On Reglan up to 10 mg IV q6 and proton pump inhibitors. Tolerating tube feedings so far. Prophylaxis: SCDs for DVT prophylaxis, Protonix for GI prophylaxis Disposition: Still in ICU, S/p PEG tube and Tracheostomy, so far unable to weaning off sedation or vent. Family meeting 01/14 did confirm that patient is noncompliant with medication, unfortunately he does have significant behavioral issues including violent behavior. He is a bipolar that seems to be mostly manic most of the time and noncompliant with medications at all. Drug use is an issue. Hopefully, he will be calmer and will be able to wean him off the IV drips/ sedating agents for subacute disposition. Jayda, the patient's 1/2 sister has made us understand that she will not be involved in the primary caregiving of patient and he will need to be placed at the time of discharge no matter what his condition. Subjective 24 Hr Interval Summary Free Text/Dictation Patient is status post tracheostomy last night, he also had his PEG tube placed couple of days ago. For now his mental status still has not changed, he still agitated, he is on and off diaphoretic likely related to medications, for now patient still requiring fentanyl, Ativan drips and also some propofol. He is getting Haldol as needed and is on multiple antipsychotic and psychiatric medications. Labs are stable Exam/Review of Systems Vital Signs Vitals Vital Signs Date Time Temp Pulse Resp B/P Pulse Ox O2 Delivery O2 Flow Rate FiO2 01/29/17 08:00 99.9 89 20 108/76 98 Mechanical Ventilator 01/29/17 07:35 30 Intake and Output 01/28/17 01/28/17 01/29/17 15:00 23:00 07:00 Intake Total 772 ml 694.888 ml 969.647 ml Output Total 527 ml 330 ml 200 ml Balance 245 ml 364.888 ml 769.647 ml Exam Constitutional: other (S/p trachaeostomy last night ) Respiratory: clear to auscultation, other (s/p tracheostomy and on Vent ) Cardiovascular: regular rate and rhythm Gastrointestinal: non-tender, other (s/p PEG tube placement ), soft Musculoskeletal: nl extremities to inspection Extremities: normal pulses, other (NO edema, clubbing or cyanosis ) Neurological: other (agitated and still not following commands ) Results Result Diagram: 01/29/17 0500 01/29/17 0500 Results 24 hrs Laboratory Tests Test 01/29/17 05:00 White Blood Count 6.5 # Red Blood Count 3.29 L Hemoglobin 9.3 L Hematocrit 29.8 L Mean Corpuscular Volume 90.6 Mean Corpuscular Hemoglobin 28.3 L Mean Corpuscular Hemoglobin Concent 31.2 L Red Cell Distribution Width 14.3 Platelet Count 299 Mean Platelet Volume 12.1 H Neutrophils % 70.0 Lymphocytes % 12.0 L Monocytes % 10.3 Eosinophils % 5.7 Basophils % 1.2 Nucleated Red Blood Cells % 0.0 Neutrophils # 4.6 Lymphocytes # 0.8 Monocytes # 0.7 Eosinophils # 0.4 Basophils # 0.1 Nucleated Red Blood Cells # 0.0 Sodium Level 149 H Potassium Level 3.7 Chloride Level 109 Carbon Dioxide Level 27 Anion Gap 17 H Blood Urea Nitrogen 14 Creatinine 0.72 Glucose Level 107 Calcium Level 8.6 Phosphorus Level 4.9 Magnesium Level 2.1 Medications Medications Current Medications Acetaminophen (Tylenol Tab) 650 mg Q4H PRN PO pain/fever Last administered on 01/29/17 00:25; Admin Dose 650 MG; Start 12/31/16 at 01:00 Hydralazine HCl (Apresoline) 25 mg Q6H PRN PO sbp>160; Start 12/31/16 at 01:00 Enalaprilat (Vasotec Iv) 1.25 mg Q6H PRN IV sbp>160; Start 12/31/16 at 01:00 Ondansetron HCl (Zofran Inj) 4 mg Q4H PRN IV nausea; Start 12/31/16 at 01:00 Hydralazine HCl (Apresoline) 10 mg Q4H PRN IV ELEVATED SYSTOLIC BP Last administered on 01/28/17 14:57; Admin Dose 10 MG; Start 12/31/16 at 05:30 Labetalol HCl (Labetalol) 10 mg Q4H PRN IV SBP GREATER THAN 160 Last administered on 01/10/17 22:33; Admin Dose 10 MG; Start 01/01/17 at 12:00 IV Flush (NS 10 ml) 10 ml PRN PRN IV IV PROTOCOL; Start 01/02/17 at 17:00 Lorazepam 2 mg 2 mg Q2H PRN IV PRN Agitation. Last administered on 01/28/17 14 :58; Admin Dose 2 MG; Start 01/04/17 at 09:00 Propofol (Diprivan) 100 ml @ 3.537 mls/ hr Q12H IV Last administered on 04:30; Admin Dose 14.148 MLS/HR; Start 01/10/17 at 09:30 Metoclopramide HCl (Reglan) 10 mg Q6 IV Last administered on 01/29/17 06:34; Admin Dose 10 MG; Start 01/11/17 at 12:00 Trazodone HCl 150 mg 150 mg HS PO Last administered on 01/28/17 20:59; Admin Dose 150 MG; Start 01/15/17 at 21:00 Thiamine HCl/ Dextrose (Vitamin B1/D5W) 101 ml @ 202 mls/hr DAILY IV Last administered on 01/29/17 08:53; Admin Dose 202 MLS/HR; Start 01/18/17 at 13: 30 Polyethylene Glycol 17 gm 17 gm DAILY NGT Last administered on 01/29/17 08:48 ; Admin Dose 17 GM; Start 01/19/17 at 10:00 Fentanyl (Sublimaze) 100 ml @ 2.5 mls/hr TITRATE IV Last administered on 23:30; Admin Dose 10 MLS/HR; Start 01/19/17 at 13:00 Carbamazepine 400 mg 400 mg BID NGT Last administered on 01/29/17 08:52; Admin Dose 400 MG; Start 01/22/17 at 21:00 Lorazepam/Dextrose (Ativan/D5W) 100 ml @ 0 mls/hr TITRATE IV Last administered on 01/29/17 01:32; Admin Dose 10 MLS/HR; Start 01/22/17 at 13:00 Haloperidol (Haldol) 5 mg Q6 PRN IV AGITATION Last administered on 01/28/17 10 :55; Admin Dose 5 MG; Start 01/23/17 at 11:00 Valproate Sodium (Depakene Liquid Cup) 250 mg TID NGT Last administered on 08:48; Admin Dose 250 MG; Start 01/24/17 at 13:00 Lansoprazole (Prevacid) 30 mg BID@06,18 NGT Last administered on 01/29/17 06: 34; Admin Dose 30 MG; Start 01/24/17 at 18:00 Diphenhydramine HCl (Benadryl) 25 mg Q6H IV Last administered on 01/29/17 04: 14; Admin Dose 25 MG; Start 01/25/17 at 17:00 Docusate Sodium (Colace Liquid Cup) 100 mg BID NGT Last administered on 08:48; Admin Dose 100 MG; Start 01/25/17 at 21:00 Quetiapine Fumarate 200 mg 200 mg Q6 NGT Last administered on 01/29/17 06:34 ; Admin Dose 200 MG; Start 01/27/17 at 12:00 Dextrose/Sodium Chloride (D5-1/2ns) 1,000 ml @ 75 mls/hr [id number] IV Last administered on 01/29/17 00:30; Admin Dose 75 MLS/HR; Start 01/27/17 at 09:30 TRENT NEWMAN Jan 29, 2017 09:27
[2017-01-29] MEDS: FENTAnyl (DRIP) 1000 mcg/100mL 100 ML IV SCH ×2 (10:52→19:55)
--- NOTE | 2017-01-29 11:22 | CONS ---
Date/Time of Note Date/Time of Note DATE: 01/29/17 TIME: 11:21 Consult Date/Type/Reason Admit Date/Time Dec 31, 2016 at 00:30 Initial Consult Date 12/31/16 Type of Consultation: Pulm/CCM Ordering Provider: JEAN MARIE BRAGG MD Subjective No significant changes. Diaphoresis requiring addition of propofol. Objective Vital Signs Date Time Temp Pulse Resp B/P Pulse Ox O2 Delivery O2 Flow Rate FiO2 01/29/17 09:44 121 31 97 30 01/29/17 08:00 99.9 108/76 Mechanical Ventilator Intake and Output 01/28/17 01/28/17 01/29/17 15:00 23:00 07:00 Intake Total 772 ml 694.888 ml 969.647 ml Output Total 527 ml 330 ml 200 ml Balance 245 ml 364.888 ml 769.647 ml Exam GENERAL: Well-nourished well-developed gentleman tracheostomy in place VITAL SIGNS: see below. HEENT: Pupils equal, round, and reactive to light. CARDIAC: S1, S2, 1/6 systolic ejection murmur CHEST: Diminished air entry bilaterally. ABDOMEN: Mildly distended. Bowel sounds present no guarding or rebound EXTREMITIES: No cyanosis, clubbing edema +1 NEUROLOGIC: Generalized weakness Results/Medications Result Diagram: 01/29/17 0500 01/29/17 0500 Results 24 hrs Laboratory Tests Test 01/29/17 05:00 White Blood Count 6.5 # Red Blood Count 3.29 L Hemoglobin 9.3 L Hematocrit 29.8 L Mean Corpuscular Volume 90.6 Mean Corpuscular Hemoglobin 28.3 L Mean Corpuscular Hemoglobin Concent 31.2 L Red Cell Distribution Width 14.3 Platelet Count 299 Mean Platelet Volume 12.1 H Neutrophils % 70.0 Lymphocytes % 12.0 L Monocytes % 10.3 Eosinophils % 5.7 Basophils % 1.2 Nucleated Red Blood Cells % 0.0 Neutrophils # 4.6 Lymphocytes # 0.8 Monocytes # 0.7 Eosinophils # 0.4 Basophils # 0.1 Nucleated Red Blood Cells # 0.0 Sodium Level 149 H Potassium Level 3.7 Chloride Level 109 Carbon Dioxide Level 27 Anion Gap 17 H Blood Urea Nitrogen 14 Creatinine 0.72 Glucose Level 107 Calcium Level 8.6 Phosphorus Level 4.9 Magnesium Level 2.1 Medications Current Medications Acetaminophen (Tylenol Tab) 650 mg Q4H PRN PO pain/fever Last administered on 01/29/17 00:25; Admin Dose 650 MG; Start 12/31/16 at 01:00 Hydralazine HCl (Apresoline) 25 mg Q6H PRN PO sbp>160; Start 12/31/16 at 01:00 Enalaprilat (Vasotec Iv) 1.25 mg Q6H PRN IV sbp>160; Start 12/31/16 at 01:00 Ondansetron HCl (Zofran Inj) 4 mg Q4H PRN IV nausea; Start 12/31/16 at 01:00 Hydralazine HCl (Apresoline) 10 mg Q4H PRN IV ELEVATED SYSTOLIC BP Last administered on 01/28/17 14:57; Admin Dose 10 MG; Start 12/31/16 at 05:30 Labetalol HCl (Labetalol) 10 mg Q4H PRN IV SBP GREATER THAN 160 Last administered on 01/10/17 22:33; Admin Dose 10 MG; Start 01/01/17 at 12:00 IV Flush (NS 10 ml) 10 ml PRN PRN IV IV PROTOCOL; Start 01/02/17 at 17:00 Lorazepam 2 mg 2 mg Q2H PRN IV PRN Agitation. Last administered on 01/28/17 14 :58; Admin Dose 2 MG; Start 01/04/17 at 09:00 Propofol (Diprivan) 100 ml @ 3.537 mls/ hr Q12H IV Last administered on 04:30; Admin Dose 14.148 MLS/HR; Start 01/10/17 at 09:30 Metoclopramide HCl (Reglan) 10 mg Q6 IV Last administered on 01/29/17 06:34; Admin Dose 10 MG; Start 01/11/17 at 12:00 Trazodone HCl 150 mg 150 mg HS PO Last administered on 01/28/17 20:59; Admin Dose 150 MG; Start 01/15/17 at 21:00 Thiamine HCl/ Dextrose (Vitamin B1/D5W) 101 ml @ 202 mls/hr DAILY IV Last administered on 01/29/17 08:53; Admin Dose 202 MLS/HR; Start 01/18/17 at 13: 30 Polyethylene Glycol 17 gm 17 gm DAILY NGT Last administered on 01/29/17 08:48 ; Admin Dose 17 GM; Start 01/19/17 at 10:00 Fentanyl (Sublimaze) 100 ml @ 2.5 mls/hr TITRATE IV Last administered on 01/29 10:52; Admin Dose 10 MLS/HR; Start 01/19/17 at 13:00 Carbamazepine 400 mg 400 mg BID NGT Last administered on 01/29/17 08:52; Admin Dose 400 MG; Start 01/22/17 at 21:00 Lorazepam/Dextrose (Ativan/D5W) 100 ml @ 0 mls/hr TITRATE IV Last administered on 01/29/17 01:32; Admin Dose 10 MLS/HR; Start 01/22/17 at 13:00 Haloperidol (Haldol) 5 mg Q6 PRN IV AGITATION Last administered on 01/28/17 10 :55; Admin Dose 5 MG; Start 01/23/17 at 11:00 Valproate Sodium (Depakene Liquid Cup) 250 mg TID NGT Last administered on 08:48; Admin Dose 250 MG; Start 01/24/17 at 13:00 Lansoprazole (Prevacid) 30 mg BID@06,18 NGT Last administered on 01/29/17 06: 34; Admin Dose 30 MG; Start 01/24/17 at 18:00 Diphenhydramine HCl (Benadryl) 25 mg Q6H IV Last administered on 01/29/17 04: 14; Admin Dose 25 MG; Start 01/25/17 at 17:00 Docusate Sodium (Colace Liquid Cup) 100 mg BID NGT Last administered on 08:48; Admin Dose 100 MG; Start 01/25/17 at 21:00 Quetiapine Fumarate 200 mg 200 mg Q6 NGT Last administered on 01/29/17 06:34 ; Admin Dose 200 MG; Start 01/27/17 at 12:00 Dextrose/Sodium Chloride (D5-1/2ns) 1,000 ml @ 75 mls/hr [id number] IV Last administered on 01/29/17 00:30; Admin Dose 75 MLS/HR; Start 01/27/17 at 09:30 Assessment/Plan Chief Complaint/Hosp Course IMP: 1. 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 Acute Lung Injury/ARDS 3. History of drug overdose 4. 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 5. ALEX 6. Anemia 7. Required ongoing sedation with Ativan, fentanyl and Seroquel. RECS: 1. Status post tracheostomy and PEG. Still requiring significant sedation. 2. Continue current vent settings for now 3. Tube feeds/Free H20 4. Minimize sedatives as tolerated 5. Continue antipsychotics 35 min cc time Problems: BRIANNA SAAVEDRA [facility] Jan 29, 2017 11:22
--- NOTE | 2017-01-29 16:26 | PN ---
Date/Time of Note Date/Time of Note DATE: 01/29/17 TIME: 16:26 Assessment/Plan Lines/Catheters IV Catheter Type (from Nrsg): PICC Line Lewis in Place (from Nrsg): Yes Assessment/Plan Chief Complaint/Hosp Course IMPRESSION: Respiratory failure. SP tracheostomy. tomorrow. continue vent support Discussed with the nursing staff. Problems: Subjective 24 Hr Interval Summary Constitutional: improved Pain Control: mild Exam/Review of Systems Vital Signs Vitals Vital Signs Date Time Temp Pulse Resp B/P Pulse Ox O2 Delivery O2 Flow Rate FiO2 01/29/17 15:28 116 24 100 30 01/29/17 14:00 158/92 Mechanical Ventilator 01/29/17 11:34 100.0 Intake and Output 01/28/17 01/28/17 01/29/17 15:00 23:00 07:00 Intake Total 772 ml 694.888 ml 999.647 ml Output Total 527 ml 330 ml 235 ml Balance 245 ml 364.888 ml 764.647 ml Exam ENMT: mucosa pink and moist, nl external ears & nose, nl lips & teeth, nl nasal mucosa & septum Neck: non-tender, supple Respiratory: clear to auscultation, normal air movement Cardiovascular: nl pulses, regular rate and rhythm Results Result Diagram: 01/29/17 0500 01/29/17 0500 JOSE GUAJARDO MD Jan 29, 2017 16:26
[2017-01-29] MEDS: traZODone 100 MG TAB PO SCH (20:08)
[2017-01-29] MEDS: HALOPERIDOL 5 MG INJ IV PRN (21:02)
--- NOTE | 2017-01-29 21:44 | CONS ---
Date/Time of Note Date/Time of Note DATE: 01/29/17 TIME: 21:42 Assessment/Plan Assessment/Plan Chief Complaint/Hosp Course Assessment: Anemia-improved Severe encephalopathy Likely secondary to drug use Acute Respiratory failure Intubated and sedated Extubation with Bipap attempted and failed 01/13 after 2 hours pt reintubated Dysphagia with peg placement 01/27/17 Impression: Uneventful PEG Placement of Amharic 20 gastrostomy tube Plan: Plan for Trach placement today Ok to start Feeding once ok with surgery Routine gastrostomy tube and site care supportive care Problems: Consultation Date/Type/Reason Admit Date/Time Dec 31, 2016 at 00:30 Initial Consult Date 01/06/17 Type of Consultation: GI Referring Provider: JENA MARIE BRAGG MD 24 HR Interval Summary Subjective hx not possible: pt non-verbal Exam/Review of Systems Vital Signs Vitals Vital Signs Date Time Temp Pulse Resp B/P Pulse Ox O2 Delivery O2 Flow Rate FiO2 01/29/17 21:00 107 23 131/104 91 Mechanical Ventilator 01/29/17 20:00 100.0 01/29/17 17:32 30 Intake and Output 01/28/17 01/28/17 01/29/17 15:00 23:00 07:00 Intake Total 772 ml 694.888 ml 1095.247 ml Output Total 527 ml 330 ml 235 ml Balance 245 ml 364.888 ml 860.247 ml Exam Constitutional: non-verbal Psych: confusion Head: atraumatic, normocephalic Eyes: EOMI, nl conjunctiva, nl lids ENMT: nl external ears & nose, nl lips & teeth, nl nasal mucosa & septum Neck: non-tender, supple Respiratory: clear to auscultation, normal air movement Cardiovascular: nl pulses, regular rate and rhythm Gastrointestinal: bowel sounds, non-tender, other (GT intact), soft Results Result Diagram: 01/29/17 0500 01/29/17 0500 Results 24 hrs Laboratory Tests Test 01/29/17 05:00 White Blood Count 6.5 # Red Blood Count 3.29 L Hemoglobin 9.3 L Hematocrit 29.8 L Mean Corpuscular Volume 90.6 Mean Corpuscular Hemoglobin 28.3 L Mean Corpuscular Hemoglobin Concent 31.2 L Red Cell Distribution Width 14.3 Platelet Count 299 Mean Platelet Volume 12.1 H Neutrophils % 70.0 Lymphocytes % 12.0 L Monocytes % 10.3 Eosinophils % 5.7 Basophils % 1.2 Nucleated Red Blood Cells % 0.0 Neutrophils # 4.6 Lymphocytes # 0.8 Monocytes # 0.7 Eosinophils # 0.4 Basophils # 0.1 Nucleated Red Blood Cells # 0.0 Sodium Level 149 H Potassium Level 3.7 Chloride Level 109 Carbon Dioxide Level 27 Anion Gap 17 H Blood Urea Nitrogen 14 Creatinine 0.72 Glucose Level 107 Calcium Level 8.6 Phosphorus Level 4.9 Magnesium Level 2.1 Medications Medications Current Medications Acetaminophen (Tylenol Tab) 650 mg Q4H PRN PO pain/fever Last administered on 01/29/17 21:01; Admin Dose 650 MG; Start 12/31/16 at 01:00 Hydralazine HCl (Apresoline) 25 mg Q6H PRN PO sbp>160; Start 12/31/16 at 01:00 Enalaprilat (Vasotec Iv) 1.25 mg Q6H PRN IV sbp>160; Start 12/31/16 at 01:00 Ondansetron HCl (Zofran Inj) 4 mg Q4H PRN IV nausea; Start 12/31/16 at 01:00 Hydralazine HCl (Apresoline) 10 mg Q4H PRN IV ELEVATED SYSTOLIC BP Last administered on 01/28/17 14:57; Admin Dose 10 MG; Start 12/31/16 at 05:30 Labetalol HCl (Labetalol) 10 mg Q4H PRN IV SBP GREATER THAN 160 Last administered on 01/10/17 22:33; Admin Dose 10 MG; Start 01/01/17 at 12:00 IV Flush (NS 10 ml) 10 ml PRN PRN IV IV PROTOCOL; Start 01/02/17 at 17:00 Lorazepam 2 mg 2 mg Q2H PRN IV PRN Agitation. Last administered on 01/28/17 14 :58; Admin Dose 2 MG; Start 01/04/17 at 09:00 Propofol (Diprivan) 100 ml @ 3.537 mls/ hr Q12H IV Last administered on 21:32; Admin Dose 21.222 MLS/HR; Start 01/10/17 at 09:30 Metoclopramide HCl (Reglan) 10 mg Q6 IV Last administered on 01/29/17 17:57; Admin Dose 10 MG; Start 01/11/17 at 12:00 Trazodone HCl 150 mg 150 mg HS PO Last administered on 01/29/17 20:08; Admin Dose 150 MG; Start 01/15/17 at 21:00 Thiamine HCl/ Dextrose (Vitamin B1/D5W) 101 ml @ 202 mls/hr DAILY IV Last administered on 01/29/17 08:53; Admin Dose 202 MLS/HR; Start 01/18/17 at 13: 30 Polyethylene Glycol 17 gm 17 gm DAILY NGT Last administered on 01/29/17 08:48 ; Admin Dose 17 GM; Start 01/19/17 at 10:00 Fentanyl (Sublimaze) 100 ml @ 2.5 mls/hr TITRATE IV Last administered on 01/29 19:55; Admin Dose 10 MLS/HR; Start 01/19/17 at 13:00 Carbamazepine 400 mg 400 mg BID NGT Last administered on 01/29/17 20:09; Admin Dose 400 MG; Start 01/22/17 at 21:00 Lorazepam/Dextrose (Ativan/D5W) 100 ml @ 0 mls/hr TITRATE IV Last administered on 01/29/17 12:55; Admin Dose 8 MLS/HR; Start 01/22/17 at 13:00 Haloperidol (Haldol) 5 mg Q6 PRN IV AGITATION Last administered on 01/29/17 21:02; Admin Dose 5 MG; Start 01/23/17 at 11:00 Valproate Sodium (Depakene Liquid Cup) 250 mg TID NGT Last administered on 20:08; Admin Dose 250 MG; Start 01/24/17 at 13:00 Lansoprazole (Prevacid) 30 mg BID@06,18 NGT Last administered on 01/29/17 17: 58; Admin Dose 30 MG; Start 01/24/17 at 18:00 Diphenhydramine HCl (Benadryl) 25 mg Q6H IV Last administered on 01/29/17 17: 58; Admin Dose 25 MG; Start 01/25/17 at 17:00 Docusate Sodium (Colace Liquid Cup) 100 mg BID NGT Last administered on 20:08; Admin Dose 100 MG; Start 01/25/17 at 21:00 Quetiapine Fumarate 200 mg 200 mg Q6 NGT Last administered on 01/29/17 17:58 ; Admin Dose 200 MG; Start 01/27/17 at 12:00 Dextrose/Sodium Chloride (D5-1/2ns) 1,000 ml @ 75 mls/hr [id number] IV Last administered on 01/29/17 14:35; Admin Dose 75 MLS/HR; Start 01/27/17 at 09:30 SHANNON JACQUES MD Jan 29, 2017 21:44
[2017-01-30] VITALS (45 sets, daily range): BP systolic 97–151; BP diastolic 63–105; PULSE 82–116; RESP 18–27
[2017-01-30] MEDS: QUETIAPINE 100 MG TAB NGT SCH ×5 (00:09→23:38)
[2017-01-30] MEDS: METOCLOPRAMIDE 10 MG INJ IV SCH ×5 (00:09→23:38)
[2017-01-30] MEDS: IPRATROPIUM (HFA) 12.9 GM INHALER INH SCH ×4 (01:19→19:29)
[2017-01-30] MEDS: ALBUTEROL 18 GM INHALER INH SCH ×4 (01:19→19:29)
[2017-01-30] MEDS: PROPOFOL 100 ML IV SCH ×3 (02:19→23:28)
[2017-01-30] MEDS: DEXTROSE 5%-0.45% NACL 1,000 ML IV SCH ×2 (04:21→17:01)
[2017-01-30] MEDS: LANSOPRAZOLE 30 MG CAP NGT SCH ×2 (06:08→17:00)
[2017-01-30] MEDS: DIPHENHYDRAMINE 50 MG INJ IV SCH ×4 (06:08→23:26)
[2017-01-30] MEDS: FENTAnyl (DRIP) 1000 mcg/100mL 100 ML IV SCH ×2 (06:08→17:00)
[2017-01-30 06:45] LABS: BASOPHIL # 0.1 10^3/ul (0.0-0.1); BASOPHILS % 1.2 % (0.0-2.0); EOSINOPHILS # 0.5 10^3/ul (0.0-0.5); EOSINOPHILS % 6.7 % (0.0-7.0); HEMATOCRIT 29.9 % (42.0-52.0); HEMOGLOBIN 9.1 g/dl (14.0-18.0); LYMPHOCYTES % 14.2 % (15.0-51.0); MEAN CORPUSCULAR HEMOGLOBIN 27.5 pg (29.0-33.0); MEAN CORPUSCULAR HGB CONC 30.4 g/dl (32.0-37.0); MEAN CORPUSCULAR VOLUME 90.3 fl (82.0-101.0); MEAN PLATELET VOLUME 12.1 fl (7.4-10.4); MONOCYTE # 0.8 10^3/ul (0.3-0.9); MONOCYTES % 11.2 % (0.0-11.0); NEUTROPHIL # 4.6 10^3/ul (1.6-7.5); NEUTROPHILS % 65.8 % (39.0-77.0); PLATELET COUNT 274 10^3/UL (140-415); RED BLOOD COUNT 3.31 10^6/ul (4.70-6.10); RED CELL DISTRIBUTION WIDTH 14.6 % (11.5-14.5); WHITE BLOOD COUNT 6.9 10^3/ul (4.8-10.8)
[2017-01-30 07:27] LABS: CALCIUM 8.3 mg/dl (8.4-10.2); CREATININE 0.72 mg/dl (0.61-1.24); POTASSIUM 3.3 mmol/L (3.5-5.1)
[2017-01-30 07:33] LABS: PHOSPHORUS 4.6 mg/dl (2.5-4.9)
[2017-01-30] MEDS: carBAMAZepine SUSP 20 MG/ML POSYG NGT SCH ×2 (08:45→21:49)
[2017-01-30] MEDS: DEXTROSE 5% IV SCH (08:45)
[2017-01-30] MEDS: POLYETHYLENE GLYCOL 17 GM PACKET NGT SCH (08:45)
[2017-01-30] MEDS: DOCUSATE SODIUM 10 MG/ML (10ML CUP) NGT SCH ×2 (08:45→21:49)
[2017-01-30] MEDS: THIAMINE IV SCH (08:45)
[2017-01-30] MEDS: VALPROIC ACID LIQUID CUP 250 MG/5 ML CUP NGT SCH ×3 (08:45→21:49)
--- NOTE | 2017-01-30 10:15 | PN ---
Date/Time of Note Date/Time of Note DATE: 01/30/17 TIME: 10:06 Assessment/Plan VTE Prophylaxis VTE Prophylaxis Intervention: SCD's Lines/Catheters IV Catheter Type (from Nrs): PICC Line Central line still needed: Yes Urinary Cath still in place: Yes Reason Cath still needed: pres ulcer contaminated by urine, terminal illness/ intractable pain Assessment/Plan Assessment/Plan 1. Severe encephalopathy 2ry to drug abuse likely Bath salts and/or synthetic marijuana and also bipolar disorder with violent behaviors and noncompliance with medications per previous psychiatry notes. No other clear etiology so far of encephalopathic, neurology on board, CT head 2 since admission are both wnl , EEG x2 showing encephalopathy, MRI brain wnl. Patient still with episodes of agitation and requiring multiple sedating agents. Reconciliation and titration of her psychiatric medications have been done, so far still unable to successfully de-escalate on the sedation. S/p Tracheostomy POD#2 and PEG tube placement POD#3. He is tolerating PEG feeds with a goal of 50 cc/hr.. On Ativan drip, fentanyl drip, and propafol as well as haldol as needed. Agitated but attempting to titrate Ativan and Fentanyl drips down. Continue IV thiamine. 2. Acute respiratory Failure secondary to severe encephalopathy from drug overuse, intubated, sedated and paralysed. Patient was briefly extubated last week for 2-1/2 hours but had to be reintubated due to inability to protect his airway, of note he was still on sedating agents. WBC within normal now and chest x-ray has been better but with compressive atelectasis. Still on FiO2 of 30% and PEEP of 7. Still on fentanyl gtt, propafol gtt, and Ativan gtt and Haldol prn. Patient has been restarted on Seroquel and Tegretol dosing adjusted to outpatient dosing. Trazodone resumed as well. S/p Tracheostomy POD#2 and PEG tube POD#3. 3. Bipolar disorder: Likely noncompliant with psychiatric medications. Medication resumed and adjusted to outpatient dosing based on the note from psychiatry 5 days prior to admission that were able to obtain last Wednesday, patient Seroquel can even be titrated higher, according to the notes he was on Seroquel XR, increased to 1000 mg nightly per the latest note. Now on Seroquel to 200 mg QID. Increased carbamazepine to 400 mg twice daily. Continue Haldol prn and on Ativan drip. Changed Depakene to 250 TID (patient on Depakote ER 500 mg nightly) Again per the girlfriend it is very likely that the patient was not fully compliant. 4. Right foot Lisfranc fracture: Pain control and ? splint 5. Anemia: Hemoglobin stable at approx 9.3, status post 1 unit pRBC on 01/15. SCDs to lower extremities. On Reglan up to 10 mg IV q6 and proton pump inhibitors. Tolerating tube feedings so far. 6. Hypernatremia: will add free water to the PEG tube and re-check labs in AM. Prophylaxis: SCDs for DVT prophylaxis, Protonix for GI prophylaxis Disposition: Still in ICU, S/p PEG tube and Tracheostomy, so far unable to weaning off sedation or vent. Family meeting 01/14 did confirm that patient is noncompliant with medication, unfortunately he does have significant behavioral issues including violent behavior. He is a bipolar that seems to be mostly manic most of the time and noncompliant with medications at all. Drug use is an issue. Hopefully, he will be calmer and will be able to wean him off the IV drips/ sedating agents for subacute disposition. Jayda, the patient's 1/2 sister has made us understand that she will not be involved in the primary caregiving of patient and he will need to be placed at the time of discharge no matter what his condition. Subjective 24 Hr Interval Summary Free Text/Dictation No significant events overnight. Intermittently agitated, but overall sedated with ativan, fentanyl, and propafol gtts. He is tolerating TF thus far at 40 cc /hour and goal is 50/cc hour. Subjective hx not possible: pt non-verbal, pt critical status Exam/Review of Systems Vital Signs Vitals Vital Signs Date Time Temp Pulse Resp B/P Pulse Ox O2 Delivery O2 Flow Rate FiO2 01/30/17 06:00 90 25 109/72 98 Mechanical Ventilator 01/30/17 05:13 30 01/30/17 04:00 98.7 Intake and Output 01/29/17 01/29/17 01/30/17 15:00 23:00 07:00 Intake Total 1262.6 ml 1279.595 ml 1302.962 ml Output Total 318 ml 385 ml 330 ml Balance 944.6 ml 894.595 ml 972.962 ml Exam Constitutional: non-verbal, other (sedated) Head: atraumatic, normocephalic Eyes: PERRL Neck: supple Respiratory: clear to auscultation Cardiovascular: regular rate and rhythm Gastrointestinal: other (PEG clean, dry and intact), soft Musculoskeletal: nl extremities to inspection Extremities: normal pulses Results Result Diagram: 01/30/1730 01/30/17 0530 Results 24 hrs Laboratory Tests Test 01/30/17 05:30 White Blood Count 6.9 Red Blood Count 3.31 L Hemoglobin 9.1 L Hematocrit 29.9 L Mean Corpuscular Volume 90.3 Mean Corpuscular Hemoglobin 27.5 L Mean Corpuscular Hemoglobin Concent 30.4 L Red Cell Distribution Width 14.6 H Platelet Count 274 Mean Platelet Volume 12.1 H Neutrophils % 65.8 Lymphocytes % 14.2 L Monocytes % 11.2 H Eosinophils % 6.7 Basophils % 1.2 Nucleated Red Blood Cells % 0.0 Neutrophils # 4.6 Lymphocytes # 1.0 Monocytes # 0.8 Eosinophils # 0.5 Basophils # 0.1 Nucleated Red Blood Cells # 0.0 Sodium Level 149 H Potassium Level 3.3 L Chloride Level 109 Carbon Dioxide Level 27 Anion Gap 16 Blood Urea Nitrogen 13 Creatinine 0.72 Glucose Level 125 Calcium Level 8.3 L Phosphorus Level 4.6 Magnesium Level 2.0 Medications Medications Current Medications Acetaminophen (Tylenol Tab) 650 mg Q4H PRN PO pain/fever Last administered on 01/29/17 21:01; Admin Dose 650 MG; Start 12/31/16 at 01:00 Hydralazine HCl (Apresoline) 25 mg Q6H PRN PO sbp>160; Start 12/31/16 at 01:00 Enalaprilat (Vasotec Iv) 1.25 mg Q6H PRN IV sbp>160; Start 12/31/16 at 01:00 Ondansetron HCl (Zofran Inj) 4 mg Q4H PRN IV nausea; Start 12/31/16 at 01:00 Hydralazine HCl (Apresoline) 10 mg Q4H PRN IV ELEVATED SYSTOLIC BP Last administered on 01/28/17 14:57; Admin Dose 10 MG; Start 12/31/16 at 05:30 Labetalol HCl (Labetalol) 10 mg Q4H PRN IV SBP GREATER THAN 160 Last administered on 01/10/17 22:33; Admin Dose 10 MG; Start 01/01/17 at 12:00 IV Flush (NS 10 ml) 10 ml PRN PRN IV IV PROTOCOL; Start 01/02/17 at 17:00 Lorazepam 2 mg 2 mg Q2H PRN IV PRN Agitation. Last administered on 01/28/17 14 :58; Admin Dose 2 MG; Start 01/04/17 at 09:00 Propofol (Diprivan) 100 ml @ 3.537 mls/ hr Q12H IV Last administered on 02:19; Admin Dose 14.148 MLS/HR; Start 01/10/17 at 09:30 Metoclopramide HCl (Reglan) 10 mg Q6 IV Last administered on 01/30/17 06:08; Admin Dose 10 MG; Start 01/11/17 at 12:00 Trazodone HCl 150 mg 150 mg HS PO Last administered on 01/29/17 20:08; Admin Dose 150 MG; Start 01/15/17 at 21:00 Thiamine HCl/ Dextrose (Vitamin B1/D5W) 101 ml @ 202 mls/hr DAILY IV Last administered on 01/30/17 08:45; Admin Dose 202 MLS/HR; Start 01/18/17 at 13: 30 Polyethylene Glycol 17 gm 17 gm DAILY NGT Last administered on 01/30/17 08:45 ; Admin Dose 17 GM; Start 01/19/17 at 10:00 Fentanyl (Sublimaze) 100 ml @ 2.5 mls/hr TITRATE IV Last administered on 01/30 06:08; Admin Dose 10 MLS/HR; Start 01/19/17 at 13:00 Carbamazepine 400 mg 400 mg BID NGT Last administered on 01/30/17 08:45; Admin Dose 400 MG; Start 01/22/17 at 21:00 Lorazepam/Dextrose (Ativan/D5W) 100 ml @ 0 mls/hr TITRATE IV Last administered on 01/29/17 22:58; Admin Dose 10 MLS/HR; Start 01/22/17 at 13:00 Haloperidol (Haldol) 5 mg Q6 PRN IV AGITATION Last administered on 01/29/17 21:02; Admin Dose 5 MG; Start 01/23/17 at 11:00 Valproate Sodium (Depakene Liquid Cup) 250 mg TID NGT Last administered on 08:45; Admin Dose 250 MG; Start 01/24/17 at 13:00 Lansoprazole (Prevacid) 30 mg BID@06,18 NGT Last administered on 01/30/17 06: 08; Admin Dose 30 MG; Start 01/24/17 at 18:00 Diphenhydramine HCl (Benadryl) 25 mg Q6H IV Last administered on 01/30/17 06: 08; Admin Dose 25 MG; Start 01/25/17 at 17:00 Docusate Sodium (Colace Liquid Cup) 100 mg BID NGT Last administered on 08:45; Admin Dose 100 MG; Start 01/25/17 at 21:00 Quetiapine Fumarate 200 mg 200 mg Q6 NGT Last administered on 01/30/17 06:08 ; Admin Dose 200 MG; Start 01/27/17 at 12:00 Dextrose/Sodium Chloride (D5-1/2ns) 1,000 ml @ 75 mls/hr [id number] IV Last administered on 01/30/17 04:21; Admin Dose 75 MLS/HR; Start 01/27/17 at 09:30 GABINO ALCANTARA MD Jan 30, 2017 10:15
[2017-01-30] MEDS: LORAZEPAM (MDV) 100 MG in DEXTROSE 5% 50 ML IV SCH ×2 (10:41→23:38)
--- NOTE | 2017-01-30 11:50 | CONS ---
Date/Time of Note Date/Time of Note DATE: 01/30/17 TIME: 11:49 Consult Date/Type/Reason Admit Date/Time Dec 31, 2016 at 00:30 Initial Consult Date 12/31/16 Type of Consultation: Pulmonary Ordering Provider: JEAN MARIE BRAGG MD Subjective Physical comfortable today. Continues fentanyl at 100, Ativan at 8 and propofol at 10 mg an hour. Objective Vital Signs Date Time Temp Pulse Resp B/P Pulse Ox O2 Delivery O2 Flow Rate FiO2 01/30/17 11:00 83 18 115/71 97 Mechanical Ventilator 01/30/17 08:00 30 01/30/17 08:00 99.9 Intake and Output 01/29/17 01/29/17 01/30/17 15:00 23:00 07:00 Intake Total 1262.6 ml 1279.595 ml 1302.962 ml Output Total 318 ml 385 ml 330 ml Balance 944.6 ml 894.595 ml 972.962 ml Exam GENERAL: Well-nourished well-developed gentleman tracheostomy in place VITAL SIGNS: see below. HEENT: Pupils equal, round, and reactive to light. CARDIAC: S1, S2, 1/6 systolic ejection murmur CHEST: Diminished air entry bilaterally. ABDOMEN: Mildly distended. Bowel sounds present no guarding or rebound EXTREMITIES: No cyanosis, clubbing edema +1 NEUROLOGIC: Generalized weakness Results/Medications Result Diagram: 01/30/17 0530 01/30/17 0530 Results 24 hrs Laboratory Tests Test 01/30/17 05:30 White Blood Count 6.9 Red Blood Count 3.31 L Hemoglobin 9.1 L Hematocrit 29.9 L Mean Corpuscular Volume 90.3 Mean Corpuscular Hemoglobin 27.5 L Mean Corpuscular Hemoglobin Concent 30.4 L Red Cell Distribution Width 14.6 H Platelet Count 274 Mean Platelet Volume 12.1 H Neutrophils % 65.8 Lymphocytes % 14.2 L Monocytes % 11.2 H Eosinophils % 6.7 Basophils % 1.2 Nucleated Red Blood Cells % 0.0 Neutrophils # 4.6 Lymphocytes # 1.0 Monocytes # 0.8 Eosinophils # 0.5 Basophils # 0.1 Nucleated Red Blood Cells # 0.0 Sodium Level 149 H Potassium Level 3.3 L Chloride Level 109 Carbon Dioxide Level 27 Anion Gap 16 Blood Urea Nitrogen 13 Creatinine 0.72 Glucose Level 125 Calcium Level 8.3 L Phosphorus Level 4.6 Magnesium Level 2.0 Medications Current Medications Acetaminophen (Tylenol Tab) 650 mg Q4H PRN PO pain/fever Last administered on 01/29/17 21:01; Admin Dose 650 MG; Start 12/31/16 at 01:00 Hydralazine HCl (Apresoline) 25 mg Q6H PRN PO sbp>160; Start 12/31/16 at 01:00 Enalaprilat (Vasotec Iv) 1.25 mg Q6H PRN IV sbp>160; Start 12/31/16 at 01:00 Ondansetron HCl (Zofran Inj) 4 mg Q4H PRN IV nausea; Start 12/31/16 at 01:00 Hydralazine HCl (Apresoline) 10 mg Q4H PRN IV ELEVATED SYSTOLIC BP Last administered on 01/28/17 14:57; Admin Dose 10 MG; Start 12/31/16 at 05:30 Labetalol HCl (Labetalol) 10 mg Q4H PRN IV SBP GREATER THAN 160 Last administered on 01/10/17 22:33; Admin Dose 10 MG; Start 01/01/17 at 12:00 IV Flush (NS 10 ml) 10 ml PRN PRN IV IV PROTOCOL; Start 01/02/17 at 17:00 Lorazepam 2 mg 2 mg Q2H PRN IV PRN Agitation. Last administered on 01/28/17 14 :58; Admin Dose 2 MG; Start 01/04/17 at 09:00 Propofol (Diprivan) 100 ml @ 3.537 mls/ hr Q12H IV Last administered on 02:19; Admin Dose 14.148 MLS/HR; Start 01/10/17 at 09:30 Metoclopramide HCl (Reglan) 10 mg Q6 IV Last administered on 01/30/17 11:36; Admin Dose 10 MG; Start 01/11/17 at 12:00 Trazodone HCl 150 mg 150 mg HS PO Last administered on 01/29/17 20:08; Admin Dose 150 MG; Start 01/15/17 at 21:00 Thiamine HCl/ Dextrose (Vitamin B1/D5W) 101 ml @ 202 mls/hr DAILY IV Last administered on 01/30/17 08:45; Admin Dose 202 MLS/HR; Start 01/18/17 at 13: 30 Polyethylene Glycol 17 gm 17 gm DAILY NGT Last administered on 01/30/17 08:45 ; Admin Dose 17 GM; Start 01/19/17 at 10:00 Fentanyl (Sublimaze) 100 ml @ 2.5 mls/hr TITRATE IV Last administered on 01/30 06:08; Admin Dose 10 MLS/HR; Start 01/19/17 at 13:00 Carbamazepine 400 mg 400 mg BID NGT Last administered on 01/30/17 08:45; Admin Dose 400 MG; Start 01/22/17 at 21:00 Lorazepam/Dextrose (Ativan/D5W) 100 ml @ 0 mls/hr TITRATE IV Last administered on 01/30/17 10:41; Admin Dose 8 MLS/HR; Start 01/22/17 at 13:00 Haloperidol (Haldol) 5 mg Q6 PRN IV AGITATION Last administered on 01/29/17 21:02; Admin Dose 5 MG; Start 01/23/17 at 11:00 Valproate Sodium (Depakene Liquid Cup) 250 mg TID NGT Last administered on 08:45; Admin Dose 250 MG; Start 01/24/17 at 13:00 Lansoprazole (Prevacid) 30 mg BID@06,18 NGT Last administered on 01/30/17 06: 08; Admin Dose 30 MG; Start 01/24/17 at 18:00 Diphenhydramine HCl (Benadryl) 25 mg Q6H IV Last administered on 01/30/17 11: 36; Admin Dose 25 MG; Start 01/25/17 at 17:00 Docusate Sodium (Colace Liquid Cup) 100 mg BID NGT Last administered on 08:45; Admin Dose 100 MG; Start 01/25/17 at 21:00 Quetiapine Fumarate 200 mg 200 mg Q6 NGT Last administered on 01/30/17 11:36 ; Admin Dose 200 MG; Start 01/27/17 at 12:00 Dextrose/Sodium Chloride (D5-1/2ns) 1,000 ml @ 75 mls/hr [id number] IV Last administered on 01/30/17 04:21; Admin Dose 75 MLS/HR; Start 01/27/17 at 09:30 Assessment/Plan Chief Complaint/Hosp Course IMP: 1. 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 Acute Lung Injury/ARDS 3. History of drug overdose 4. 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 5. ALEX 6. Anemia 7. Required ongoing sedation with Ativan, fentanyl and Seroquel. DC propofol if tolerated RECS: 1. Status post tracheostomy and PEG. 2. Continue current vent settings for now 3. Tube feeds/Free H20 4. Minimize sedatives as tolerated 5. Continue antipsychotics Stable for transfer to [facility] if off propofol and they can handle Ativan and fentanyl. Problems: BRIANNA SAAVEDRA MD, [facility] Jan 30, 2017 11:50
--- NOTE | 2017-01-30 12:29 | CONS ---
Date/Time of Note Date/Time of Note DATE: 01/30/17 TIME: 12:29 Assessment/Plan Assessment/Plan Chief Complaint/Hosp Course Assessment: Anemia-improved Severe encephalopathy Likely secondary to drug use Acute Respiratory failure Intubated and sedated Extubation with Bipap attempted and failed 01/13 after 2 hours pt reintubated Dysphagia with peg placement 01/27/17 Impression: Uneventful PEG Placement of [place] 20 gastrostomy tube Plan: Ok to start Feeding once ok with surgery Routine gastrostomy tube and site care supportive care Problems: Consultation Date/Type/Reason Admit Date/Time Dec 31, 2016 at 00:30 Initial Consult Date 01/06/17 Type of Consultation: GI Referring Provider: JEAN MARIE BRAGG MD 24 HR Interval Summary Subjective hx not possible: pt non-verbal, pt critical Exam/Review of Systems Vital Signs Vitals Vital Signs Date Time Temp Pulse Resp B/P Pulse Ox O2 Delivery O2 Flow Rate FiO2 01/30/17 11:00 83 18 115/71 97 Mechanical Ventilator 01/30/17 08:00 30 01/30/17 08:00 99.9 Intake and Output 01/29/17 01/29/17 01/30/17 15:00 23:00 07:00 Intake Total 1262.6 ml 1279.595 ml 1302.962 ml Output Total 318 ml 385 ml 330 ml Balance 944.6 ml 894.595 ml 972.962 ml Exam Head: atraumatic, normocephalic Eyes: EOMI, nl conjunctiva, nl lids ENMT: nl external ears & nose, nl lips & teeth, nl nasal mucosa & septum Neck: non-tender, supple Respiratory: clear to auscultation, normal air movement Cardiovascular: nl pulses, regular rate and rhythm Gastrointestinal: bowel sounds, non-tender, other (PEG c/d/i), soft Results Result Diagram: 01/30/17 0530 01/30/17 0530 Results 24 hrs Laboratory Tests Test 01/30/17 05:30 White Blood Count 6.9 Red Blood Count 3.31 L Hemoglobin 9.1 L Hematocrit 29.9 L Mean Corpuscular Volume 90.3 Mean Corpuscular Hemoglobin 27.5 L Mean Corpuscular Hemoglobin Concent 30.4 L Red Cell Distribution Width 14.6 H Platelet Count 274 Mean Platelet Volume 12.1 H Neutrophils % 65.8 Lymphocytes % 14.2 L Monocytes % 11.2 H Eosinophils % 6.7 Basophils % 1.2 Nucleated Red Blood Cells % 0.0 Neutrophils # 4.6 Lymphocytes # 1.0 Monocytes # 0.8 Eosinophils # 0.5 Basophils # 0.1 Nucleated Red Blood Cells # 0.0 Sodium Level 149 H Potassium Level 3.3 L Chloride Level 109 Carbon Dioxide Level 27 Anion Gap 16 Blood Urea Nitrogen 13 Creatinine 0.72 Glucose Level 125 Calcium Level 8.3 L Phosphorus Level 4.6 Magnesium Level 2.0 Medications Medications Current Medications Acetaminophen (Tylenol Tab) 650 mg Q4H PRN PO pain/fever Last administered on 01/29/17 21:01; Admin Dose 650 MG; Start 12/31/16 at 01:00 Hydralazine HCl (Apresoline) 25 mg Q6H PRN PO sbp>160; Start 12/31/16 at 01:00 Enalaprilat (Vasotec Iv) 1.25 mg Q6H PRN IV sbp>160; Start 12/31/16 at 01:00 Ondansetron HCl (Zofran Inj) 4 mg Q4H PRN IV nausea; Start 12/31/16 at 01:00 Hydralazine HCl (Apresoline) 10 mg Q4H PRN IV ELEVATED SYSTOLIC BP Last administered on 01/28/17 14:57; Admin Dose 10 MG; Start 12/31/16 at 05:30 Labetalol HCl (Labetalol) 10 mg Q4H PRN IV SBP GREATER THAN 160 Last administered on 01/10/17 22:33; Admin Dose 10 MG; Start 01/01/17 at 12:00 IV Flush (NS 10 ml) 10 ml PRN PRN IV IV PROTOCOL; Start 01/02/17 at 17:00 Lorazepam 2 mg 2 mg Q2H PRN IV PRN Agitation. Last administered on 01/28/17 14 :58; Admin Dose 2 MG; Start 01/04/17 at 09:00 Propofol (Diprivan) 100 ml @ 3.537 mls/ hr Q12H IV Last administered on 02:19; Admin Dose 14.148 MLS/HR; Start 01/10/17 at 09:30 Metoclopramide HCl (Reglan) 10 mg Q6 IV Last administered on 01/30/17 11:36; Admin Dose 10 MG; Start 01/11/17 at 12:00 Trazodone HCl 150 mg 150 mg HS PO Last administered on 01/29/17 20:08; Admin Dose 150 MG; Start 01/15/17 at 21:00 Thiamine HCl/ Dextrose (Vitamin B1/D5W) 101 ml @ 202 mls/hr DAILY IV Last administered on 01/30/17 08:45; Admin Dose 202 MLS/HR; Start 01/18/17 at 13: 30 Polyethylene Glycol 17 gm 17 gm DAILY NGT Last administered on 01/30/17 08:45 ; Admin Dose 17 GM; Start 01/19/17 at 10:00 Fentanyl (Sublimaze) 100 ml @ 2.5 mls/hr TITRATE IV Last administered on 01/30 06:08; Admin Dose 10 MLS/HR; Start 01/19/17 at 13:00 Carbamazepine 400 mg 400 mg BID NGT Last administered on 01/30/17 08:45; Admin Dose 400 MG; Start 01/22/17 at 21:00 Lorazepam/Dextrose (Ativan/D5W) 100 ml @ 0 mls/hr TITRATE IV Last administered on 01/30/17 10:41; Admin Dose 8 MLS/HR; Start 01/22/17 at 13:00 Haloperidol (Haldol) 5 mg Q6 PRN IV AGITATION Last administered on 01/29/17 21:02; Admin Dose 5 MG; Start 01/23/17 at 11:00 Valproate Sodium (Depakene Liquid Cup) 250 mg TID NGT Last administered on 08:45; Admin Dose 250 MG; Start 01/24/17 at 13:00 Lansoprazole (Prevacid) 30 mg BID@06,18 NGT Last administered on 01/30/17 06: 08; Admin Dose 30 MG; Start 01/24/17 at 18:00 Diphenhydramine HCl (Benadryl) 25 mg Q6H IV Last administered on 01/30/17 11: 36; Admin Dose 25 MG; Start 01/25/17 at 17:00 Docusate Sodium (Colace Liquid Cup) 100 mg BID NGT Last administered on 08:45; Admin Dose 100 MG; Start 01/25/17 at 21:00 Quetiapine Fumarate 200 mg 200 mg Q6 NGT Last administered on 01/30/17 11:36 ; Admin Dose 200 MG; Start 01/27/17 at 12:00 Dextrose/Sodium Chloride (D5-1/2ns) 1,000 ml @ 75 mls/hr [id number] IV Last administered on 01/30/17 04:21; Admin Dose 75 MLS/HR; Start 01/27/17 at 09:30 SHANNON JACQUES MD Jan 30, 2017 12:29
--- NOTE | 2017-01-30 20:16 | PN ---
Date/Time of Note Date/Time of Note DATE: 01/30/17 TIME: 20:16 Assessment/Plan Lines/Catheters IV Catheter Type (from Nrsg): PICC Line Lewis in Place (from Nrsg): Yes Assessment/Plan Chief Complaint/Hosp Course IMPRESSION: Respiratory failure. SP tracheostomy. tomorrow. continue vent support Discussed with the nursing staff. Problems: Subjective 24 Hr Interval Summary Constitutional: improved Pain Control: mild Exam/Review of Systems Vital Signs Vitals Vital Signs Date Time Temp Pulse Resp B/P Pulse Ox O2 Delivery O2 Flow Rate FiO2 01/30/17 19:24 83 20 99 30 01/30/17 18:00 107/65 Mechanical Ventilator 01/30/17 16:00 99.6 Intake and Output 01/29/17 01/29/17 01/30/17 15:00 23:00 07:00 Intake Total 1262.6 ml 1279.595 ml 1453.036 ml Output Total 318 ml 385 ml 360 ml Balance 944.6 ml 894.595 ml 1093.036 ml Exam ENMT: mucosa pink and moist, nl external ears & nose, nl lips & teeth, nl nasal mucosa & septum Neck: non-tender, supple Respiratory: clear to auscultation, normal air movement Cardiovascular: nl pulses, regular rate and rhythm Gastrointestinal: nl liver, spleen, non-tender, soft Results Result Diagram: 01/30/17 0530 01/30/17 0530 JOSE GUAJARDO MD Jan 30, 2017 20:16
[2017-01-30] MEDS: LORAZEPAM 2 MG INJ IV PRN (20:40)
[2017-01-30] MEDS: traZODone 100 MG TAB PO SCH (21:50)
[2017-01-31] VITALS (58 sets, daily range): BP systolic 97–145; BP diastolic 56–88; PULSE 76–102; RESP 17–24
[2017-01-31] MEDS: ALBUTEROL 18 GM INHALER INH SCH ×4 (01:06→19:39)
[2017-01-31] MEDS: IPRATROPIUM (HFA) 12.9 GM INHALER INH SCH ×4 (01:06→19:39)
[2017-01-31] MEDS: PROPOFOL 100 ML IV SCH ×6 (03:21→23:39)
[2017-01-31] MEDS: FENTAnyl (DRIP) 1000 mcg/100mL 100 ML IV SCH ×2 (03:22→16:19)
[2017-01-31] MEDS: METOCLOPRAMIDE 10 MG INJ IV SCH ×4 (06:15→23:53)
[2017-01-31] MEDS: QUETIAPINE 100 MG TAB NGT SCH ×4 (06:16→23:53)
[2017-01-31] MEDS: DIPHENHYDRAMINE 50 MG INJ IV SCH ×4 (06:16→23:04)
[2017-01-31] MEDS: LANSOPRAZOLE 30 MG CAP NGT SCH ×2 (06:16→18:29)
[2017-01-31] MEDS: DEXTROSE 5%-0.45% NACL 1,000 ML IV SCH ×2 (07:26→23:39)
[2017-01-31 08:11] LABS: BASOPHILS % 0.6 % (0.0-2.0); EOSINOPHILS # 0.8 10^3/ul (0.0-0.5); EOSINOPHILS % 12.6 % (0.0-7.0); HEMATOCRIT 27.9 % (42.0-52.0); LYMPHOCYTES % 15.3 % (15.0-51.0); MEAN CORPUSCULAR HEMOGLOBIN 29.3 pg (29.0-33.0); MEAN CORPUSCULAR HGB CONC 32.3 g/dl (32.0-37.0); MEAN CORPUSCULAR VOLUME 90.9 fl (82.0-101.0); MEAN PLATELET VOLUME 11.5 fl (7.4-10.4); MONOCYTE # 0.6 10^3/ul (0.3-0.9); MONOCYTES % 8.5 % (0.0-11.0); NEUTROPHILS % 62.4 % (39.0-77.0); PLATELET COUNT 210 10^3/UL (140-415); RED BLOOD COUNT 3.07 10^6/ul (4.70-6.10); RED CELL DISTRIBUTION WIDTH 14.3 % (11.5-14.5); WHITE BLOOD COUNT 6.5 10^3/ul (4.8-10.8)
[2017-01-31 08:31] LABS: CALCIUM 7.4 mg/dl (8.4-10.2); CREATININE 0.55 mg/dl (0.61-1.24); POTASSIUM 3.2 mmol/L (3.5-5.1)
[2017-01-31] MEDS: POLYETHYLENE GLYCOL 17 GM PACKET NGT SCH (08:52)
[2017-01-31] MEDS: THIAMINE IV SCH (08:53)
[2017-01-31] MEDS: carBAMAZepine SUSP 20 MG/ML POSYG NGT SCH ×2 (08:53→21:30)
[2017-01-31] MEDS: DEXTROSE 5% IV SCH (08:53)
[2017-01-31] MEDS: VALPROIC ACID LIQUID CUP 250 MG/5 ML CUP NGT SCH ×3 (08:53→21:28)
[2017-01-31] MEDS: DOCUSATE SODIUM 10 MG/ML (10ML CUP) NGT SCH ×2 (08:53→21:28)
[2017-01-31] MEDS: LORAZEPAM (MDV) 100 MG in DEXTROSE 5% 50 ML IV SCH ×2 (10:20→23:38)
[2017-01-31] MEDS: POTASSIUM CHLORIDE 50 ML IVPB PRN ×3 (10:20→12:41)
--- NOTE | 2017-01-31 10:28 | CONS ---
Date/Time of Note Date/Time of Note DATE: 01/31/17 TIME: 10:28 Consult Date/Type/Reason Admit Date/Time Dec 31, 2016 at 00:30 Initial Consult Date 12/31/16 Type of Consultation: Pulmonary Ordering Provider: JEAN MARIE BRAGG MD Subjective Patient has significant agitation overnight. Required reinitiation of propofol. Sedated this morning appears comfortable. Objective Vital Signs Date Time Temp Pulse Resp B/P Pulse Ox O2 Delivery O2 Flow Rate FiO2 01/31/17 07:00 78 20 104/65 95 Mechanical Ventilator 01/31/17 05:17 30 01/31/17 00:00 98.5 Intake and Output 01/30/17 01/30/17 01/31/17 15:00 23:00 07:00 Intake Total 1486.444 ml 1203.518 ml 928.37 ml Output Total 280 ml 265 ml 275 ml Balance 1206.444 ml 938.518 ml 653.37 ml Exam GENERAL: Well-nourished well-developed gentleman tracheostomy in place VITAL SIGNS: see below. HEENT: Pupils equal, round, and reactive to light. CARDIAC: S1, S2, 1/6 systolic ejection murmur CHEST: Diminished air entry bilaterally. ABDOMEN: Mildly distended. Bowel sounds present no guarding or rebound EXTREMITIES: No cyanosis, clubbing edema +1 NEUROLOGIC: Generalized weakness Results/Medications Result Diagram: 01/31/17 0803 01/31/17 0802 Results 24 hrs Laboratory Tests Test 01/31/17 08:02 01/31/17 08:03 Sodium Level 140 Potassium Level 3.2 L Chloride Level 103 Carbon Dioxide Level 24 Anion Gap 16 Blood Urea Nitrogen 11 Creatinine 0.55 L Glucose Level 120 Calcium Level 7.4 L White Blood Count 6.5 Red Blood Count 3.07 L Hemoglobin 9.0 L Hematocrit 27.9 L Mean Corpuscular Volume 90.9 Mean Corpuscular Hemoglobin 29.3 Mean Corpuscular Hemoglobin Concent 32.3 Red Cell Distribution Width 14.3 Platelet Count 210 # Mean Platelet Volume 11.5 H Neutrophils % 62.4 Lymphocytes % 15.3 Monocytes % 8.5 Eosinophils % 12.6 H Basophils % 0.6 Nucleated Red Blood Cells % 0.0 Neutrophils # 4.0 Lymphocytes # 1.0 Monocytes # 0.6 Eosinophils # 0.8 H Basophils # 0.0 Nucleated Red Blood Cells # 0.0 Medications Current Medications Acetaminophen (Tylenol Tab) 650 mg Q4H PRN PO pain/fever Last administered on 01/29/17 21:01; Admin Dose 650 MG; Start 12/31/16 at 01:00 Hydralazine HCl (Apresoline) 25 mg Q6H PRN PO sbp>160; Start 12/31/16 at 01:00 Enalaprilat (Vasotec Iv) 1.25 mg Q6H PRN IV sbp>160; Start 12/31/16 at 01:00 Ondansetron HCl (Zofran Inj) 4 mg Q4H PRN IV nausea; Start 12/31/16 at 01:00 Hydralazine HCl (Apresoline) 10 mg Q4H PRN IV ELEVATED SYSTOLIC BP Last administered on 01/28/17 14:57; Admin Dose 10 MG; Start 12/31/16 at 05:30 Labetalol HCl (Labetalol) 10 mg Q4H PRN IV SBP GREATER THAN 160 Last administered on 01/10/17 22:33; Admin Dose 10 MG; Start 01/01/17 at 12:00 IV Flush (NS 10 ml) 10 ml PRN PRN IV IV PROTOCOL; Start 01/02/17 at 17:00 Lorazepam 2 mg 2 mg Q2H PRN IV PRN Agitation. Last administered on 01/30/17 20:40; Admin Dose 2 MG; Start 01/04/17 at 09:00 Propofol (Diprivan) 100 ml @ 3.537 mls/ hr Q12H IV Last administered on 08:07; Admin Dose 24.759 MLS/HR; Start 01/10/17 at 09:30 Metoclopramide HCl (Reglan) 10 mg Q6 IV Last administered on 01/31/17 06:15; Admin Dose 10 MG; Start 01/11/17 at 12:00 Trazodone HCl 150 mg 150 mg HS PO Last administered on 01/30/17 21:50; Admin Dose 150 MG; Start 01/15/17 at 21:00 Thiamine HCl/ Dextrose (Vitamin B1/D5W) 101 ml @ 202 mls/hr DAILY IV Last administered on 01/31/17 08:53; Admin Dose 202 MLS/HR; Start 01/18/17 at 13: 30 Polyethylene Glycol 17 gm 17 gm DAILY NGT Last administered on 01/31/17 08:52 ; Admin Dose 17 GM; Start 01/19/17 at 10:00 Fentanyl (Sublimaze) 100 ml @ 2.5 mls/hr TITRATE IV Last administered on 01/31 03:22; Admin Dose 10 MLS/HR; Start 01/19/17 at 13:00 Carbamazepine 400 mg 400 mg BID NGT Last administered on 01/31/17 08:53; Admin Dose 400 MG; Start 01/22/17 at 21:00 Lorazepam/Dextrose (Ativan/D5W) 100 ml @ 0 mls/hr TITRATE IV Last administered on 01/31/17 10:20; Admin Dose 8 MLS/HR; Start 01/22/17 at 13:00 Haloperidol (Haldol) 5 mg Q6 PRN IV AGITATION Last administered on 01/29/17 21:02; Admin Dose 5 MG; Start 01/23/17 at 11:00 Valproate Sodium (Depakene Liquid Cup) 250 mg TID NGT Last administered on 08:53; Admin Dose 250 MG; Start 01/24/17 at 13:00 Lansoprazole (Prevacid) 30 mg BID@06,18 NGT Last administered on 01/31/17 06: 16; Admin Dose 30 MG; Start 01/24/17 at 18:00 Diphenhydramine HCl (Benadryl) 25 mg Q6H IV Last administered on 01/31/17 06: 16; Admin Dose 25 MG; Start 01/25/17 at 17:00 Docusate Sodium (Colace Liquid Cup) 100 mg BID NGT Last administered on 08:53; Admin Dose 100 MG; Start 01/25/17 at 21:00 Quetiapine Fumarate 200 mg 200 mg Q6 NGT Last administered on 01/31/17 06:16 ; Admin Dose 200 MG; Start 01/27/17 at 12:00 Dextrose/Sodium Chloride (D5-1/2ns) 1,000 ml @ 75 mls/hr [id number] IV Last administered on 01/31/17 07:26; Admin Dose 75 MLS/HR; Start 01/27/17 at 09:30 Potassium Chloride (Potassium Chloride Pwd/Soln) 40 meq ONCE ONCE GTB ; Start 01/31/17 at 10:30; Stop 01/31/17 at 10:31 Assessment/Plan Chief Complaint/Hosp Course IMP: 1. 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 Acute Lung Injury/ARDS 3. History of drug overdose 4. 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 5. ALEX 6. Anemia 7. Required ongoing sedation with Ativan, fentanyl and Seroquel. DC propofol if tolerated RECS: 1. Status post tracheostomy and PEG. 2. Continue current vent settings for now 3. Tube feeds/Free H20 4. Minimize sedatives as tolerated 5. Continue antipsychotics Consider pain management evaluation for long-acting pain medications such as methadone. Problems: BRIANNA SAAVEDRA MD, [facility] Jan 31, 2017 10:28
[2017-01-31] MEDS ORDERED: POTASSIUM CHLORIDE 20 MEQ POWDER FOR ORAL SOLN GTB ONE (10:30)
--- NOTE | 2017-01-31 17:16 | PN ---
Date/Time of Note Date/Time of Note DATE: 01/31/17 TIME: 17:11 Assessment/Plan VTE Prophylaxis VTE Prophylaxis Intervention: SCD's Lines/Catheters IV Catheter Type (from [facility]): PICC Line Central line still needed: Yes Urinary Cath still in place: Yes Reason Cath still needed: skin wounds contaminated by urine Assessment/Plan Assessment/Plan 1. Severe encephalopathy 2ry to drug abuse likely Bath salts and/or synthetic marijuana and also bipolar disorder with violent behaviors and noncompliance with medications per previous psychiatry notes. No other clear etiology so far of encephalopathic, neurology on board, CT head 2 since admission are both wnl , EEG x2 showing encephalopathy, MRI brain wnl. Patient still with episodes of agitation and requiring multiple sedating agents. Reconciliation and titration of her psychiatric medications have been done, so far still unable to successfully de-escalate on the sedation. S/p Tracheostomy and PEG tube placement. He is tolerating PEG feeds with a goal of 50 cc/hr.. On Ativan drip, fentanyl drip, and propafol gtt re-started last night secondary to increased agitation. Also, haldol as needed. Continue IV thiamine. 2. Acute respiratory Failure secondary to severe encephalopathy from drug overuse, intubated, sedated and paralysed. Patient was briefly extubated last week for 2-1/2 hours but had to be reintubated due to inability to protect his airway, of note he was still on sedating agents. WBC within normal now and chest x-ray has been better but with compressive atelectasis. Still on FiO2 of 30% and PEEP of 7. Still on fentanyl gtt, propafol gtt, and Ativan gtt and Haldol prn. Patient has been restarted on Seroquel and Tegretol dosing adjusted to outpatient dosing. Trazodone resumed as well. 3. Bipolar disorder: Likely noncompliant with psychiatric medications. Medication resumed and adjusted to outpatient dosing based on the note from psychiatry 5 days prior to admission that were able to obtain last Wednesday, patient Seroquel can even be titrated higher, according to the notes he was on Seroquel XR, increased to 1000 mg nightly per the latest note. Now on Seroquel to 200 mg QID. Increased carbamazepine to 400 mg twice daily. Continue Haldol prn and on Ativan drip. Changed Depakene to 250 TID (patient on Depakote ER 500 mg nightly) Again per the girlfriend it is very likely that the patient was not fully compliant. 4. Right foot Lisfranc fracture: Pain control and ? splint 5. Anemia: Hemoglobin stable. status post 1 unit pRBC on 01/15. SCDs to lower extremities. On Reglan up to 10 mg IV q6 and proton pump inhibitors. Tolerating tube feedings so far. 6. Hypernatremia: will add free water to the PEG tube and re-check labs in AM. Overall, improving. Prophylaxis: SCDs for DVT prophylaxis, Protonix for GI prophylaxis Disposition: Still in ICU, S/p PEG tube and Tracheostomy, so far unable to weaning off sedation or vent. Family meeting 01/14 did confirm that patient is noncompliant with medication, unfortunately he does have significant behavioral issues including violent behavior. He is a bipolar that seems to be mostly manic most of the time and noncompliant with medications at all. Drug use is an issue. Hopefully, he will be calmer and will be able to wean him off the IV drips/ sedating agents for subacute disposition. Jayda, the patient's 1/2 sister has made us understand that she will not be involved in the primary caregiving of patient and he will need to be placed at the time of discharge no matter what his condition. Subjective 24 Hr Interval Summary Free Text/Dictation Patient had episodes of agitation last night, and propofol was restarted. Currently, he is comfortable. Exam/Review of Systems Vital Signs Vitals Vital Signs Date Time Temp Pulse Resp B/P Pulse Ox O2 Delivery O2 Flow Rate FiO2 01/31/17 15:40 82 22 97 30 01/31/17 15:30 102/56 01/31/17 15:00 Mechanical Ventilator 01/31/17 12:00 98.6 Intake and Output 01/30/17 01/30/17 01/31/17 15:00 23:00 07:00 Intake Total 1486.444 ml 1203.518 ml 1044.13 ml Output Total 280 ml 265 ml 275 ml Balance 1206.444 ml 938.518 ml 769.13 ml Exam Constitutional: non-verbal, other (Intubated and sedated) Psych: no complaints Head: normocephalic Eyes: nl conjunctiva ENMT: intubated (Tracheostomy tube in place.), nl external ears & nose, other Neck: supple Respiratory: clear to auscultation Cardiovascular: regular rate and rhythm Gastrointestinal: other (PEG clean, dry and intact), soft Musculoskeletal: nl extremities to inspection Results Result Diagram: 01/31/17 0803 01/31/17 0802 Results 24 hrs Laboratory Tests Test 01/31/17 08:02 01/31/17 08:03 Sodium Level 140 Potassium Level 3.2 L Chloride Level 103 Carbon Dioxide Level 24 Anion Gap 16 Blood Urea Nitrogen 11 Creatinine 0.55 L Glucose Level 120 Calcium Level 7.4 L White Blood Count 6.5 Red Blood Count 3.07 L Hemoglobin 9.0 L Hematocrit 27.9 L Mean Corpuscular Volume 90.9 Mean Corpuscular Hemoglobin 29.3 Mean Corpuscular Hemoglobin Concent 32.3 Red Cell Distribution Width 14.3 Platelet Count 210 # Mean Platelet Volume 11.5 H Neutrophils % 62.4 Lymphocytes % 15.3 Monocytes % 8.5 Eosinophils % 12.6 H Basophils % 0.6 Nucleated Red Blood Cells % 0.0 Neutrophils # 4.0 Lymphocytes # 1.0 Monocytes # 0.6 Eosinophils # 0.8 H Basophils # 0.0 Nucleated Red Blood Cells # 0.0 Medications Medications Current Medications Acetaminophen (Tylenol Tab) 650 mg Q4H PRN PO pain/fever Last administered on 01/29/17 21:01; Admin Dose 650 MG; Start 12/31/16 at 01:00 Hydralazine HCl (Apresoline) 25 mg Q6H PRN PO sbp>160; Start 12/31/16 at 01:00 Enalaprilat (Vasotec Iv) 1.25 mg Q6H PRN IV sbp>160; Start 12/31/16 at 01:00 Ondansetron HCl (Zofran Inj) 4 mg Q4H PRN IV nausea; Start 12/31/16 at 01:00 Hydralazine HCl (Apresoline) 10 mg Q4H PRN IV ELEVATED SYSTOLIC BP Last administered on 01/28/17 14:57; Admin Dose 10 MG; Start 12/31/16 at 05:30 Labetalol HCl (Labetalol) 10 mg Q4H PRN IV SBP GREATER THAN 160 Last administered on 01/10/17 22:33; Admin Dose 10 MG; Start 01/01/17 at 12:00 IV Flush (NS 10 ml) 10 ml PRN PRN IV IV PROTOCOL; Start 01/02/17 at 17:00 Lorazepam 2 mg 2 mg Q2H PRN IV PRN Agitation. Last administered on 01/30/17 20:40; Admin Dose 2 MG; Start 01/04/17 at 09:00 Propofol (Diprivan) 100 ml @ 3.537 mls/ hr Q12H IV Last administered on 17:01; Admin Dose 24.759 MLS/HR; Start 01/10/17 at 09:30 Metoclopramide HCl (Reglan) 10 mg Q6 IV Last administered on 01/31/17 12:39; Admin Dose 10 MG; Start 01/11/17 at 12:00 Trazodone HCl 150 mg 150 mg HS PO Last administered on 01/30/17 21:50; Admin Dose 150 MG; Start 01/15/17 at 21:00 Thiamine HCl/ Dextrose (Vitamin B1/D5W) 101 ml @ 202 mls/hr DAILY IV Last administered on 01/31/17 08:53; Admin Dose 202 MLS/HR; Start 01/18/17 at 13: 30 Polyethylene Glycol 17 gm 17 gm DAILY NGT Last administered on 01/31/17 08:52 ; Admin Dose 17 GM; Start 01/19/17 at 10:00 Fentanyl (Sublimaze) 100 ml @ 2.5 mls/hr TITRATE IV Last administered on 01/31 16:19; Admin Dose 8 MLS/HR; Start 01/19/17 at 13:00 Carbamazepine 400 mg 400 mg BID NGT Last administered on 01/31/17 08:53; Admin Dose 400 MG; Start 01/22/17 at 21:00 Lorazepam/Dextrose (Ativan/D5W) 100 ml @ 0 mls/hr TITRATE IV Last administered on 01/31/17 10:20; Admin Dose 8 MLS/HR; Start 01/22/17 at 13:00 Haloperidol (Haldol) 5 mg Q6 PRN IV AGITATION Last administered on 01/29/17 21:02; Admin Dose 5 MG; Start 01/23/17 at 11:00 Valproate Sodium (Depakene Liquid Cup) 250 mg TID NGT Last administered on 12:39; Admin Dose 250 MG; Start 01/24/17 at 13:00 Lansoprazole (Prevacid) 30 mg BID@06,18 NGT Last administered on 01/31/17 06: 16; Admin Dose 30 MG; Start 01/24/17 at 18:00 Diphenhydramine HCl (Benadryl) 25 mg Q6H IV Last administered on 01/31/17 11: 00; Admin Dose 25 MG; Start 01/25/17 at 17:00 Docusate Sodium (Colace Liquid Cup) 100 mg BID NGT Last administered on 08:53; Admin Dose 100 MG; Start 01/25/17 at 21:00 Quetiapine Fumarate 200 mg 200 mg Q6 NGT Last administered on 01/31/17 12:39 ; Admin Dose 200 MG; Start 01/27/17 at 12:00 Dextrose/Sodium Chloride (D5-1/2ns) 1,000 ml @ 75 mls/hr [id number] IV Last administered on 01/31/17 07:26; Admin Dose 75 MLS/HR; Start 01/27/17 at 09:30 GABINO ALCANTARA MD Jan 31, 2017 17:16
[2017-01-31] MEDS ORDERED: hydrALAzine 20 MG INJ IV PRN (17:30)
--- NOTE | 2017-01-31 18:38 | PN ---
Date/Time of Note Date/Time of Note DATE: 01/31/17 TIME: 18:38 Assessment/Plan Lines/Catheters IV Catheter Type (from Nrsg): PICC Line Lewis in Place (from Nrsg): Yes Assessment/Plan Chief Complaint/Hosp Course IMPRESSION: Respiratory failure. SP tracheostomy. tomorrow. continue vent support Discussed with the nursing staff. Problems: Subjective 24 Hr Interval Summary Constitutional: improved Pain Control: mild Exam/Review of Systems Vital Signs Vitals Vital Signs Date Time Temp Pulse Resp B/P Pulse Ox O2 Delivery O2 Flow Rate FiO2 01/31/17 17:26 104 20 98 30 01/31/17 15:30 102/56 01/31/17 15:00 Mechanical Ventilator 01/31/17 12:00 98.6 Intake and Output 01/30/17 01/30/17 01/31/17 15:00 23:00 07:00 Intake Total 1486.444 ml 1203.518 ml 1044.13 ml Output Total 280 ml 265 ml 275 ml Balance 1206.444 ml 938.518 ml 769.13 ml Exam Eyes: No EOMI, No PERRL, No fundi, disc, No icteric, No nl conjunctiva, No nl lids, No nl sclera, No other Neck: non-tender, supple Respiratory: clear to auscultation, normal air movement Cardiovascular: nl pulses, regular rate and rhythm Gastrointestinal: nl liver, spleen, non-tender, soft Results Result Diagram: 01/31/17 0803 01/31/17 0802 JOSE GUAJARDO MD Jan 31, 2017 18:38
[2017-01-31] MEDS: traZODone 100 MG TAB PO SCH (21:29)
[2017-02-01] VITALS (44 sets, daily range): BP systolic 111–174; BP diastolic 67–127; PULSE 85–124; RESP 17–38
[2017-02-01] MEDS: ALBUTEROL HFA 8 GM INHALER INH SCH ×4 (01:45→19:25)
[2017-02-01] MEDS: IPRATROPIUM (HFA) 12.9 GM INHALER INH SCH ×4 (01:45→19:25)
[2017-02-01] MEDS: PROPOFOL 100 ML IV SCH ×7 (02:46→23:39)
[2017-02-01] MEDS: FENTAnyl (DRIP) 1000 mcg/100mL 100 ML IV SCH ×2 (04:27→18:55)
[2017-02-01] MEDS: QUETIAPINE 100 MG TAB NGT SCH ×3 (05:14→18:13)
[2017-02-01] MEDS: METOCLOPRAMIDE 10 MG INJ IV SCH ×2 (05:14→11:37)
[2017-02-01] MEDS: DIPHENHYDRAMINE 50 MG INJ IV SCH ×2 (05:14→11:37)
[2017-02-01] MEDS: LANSOPRAZOLE 30 MG CAP NGT SCH ×2 (05:14→18:13)
[2017-02-01 06:31] LABS: CALCIUM 7.5 mg/dl (8.4-10.2); CREATININE 0.51 mg/dl (0.61-1.24); MAGNESIUM 1.6 mg/dl (1.7-2.5); PHOSPHORUS 4.2 mg/dl (2.5-4.9); POTASSIUM 3.8 mmol/L (3.5-5.1)
[2017-02-01 06:36] LABS: BASOPHIL # 0.1 10^3/ul (0.0-0.1); BASOPHILS % 0.5 % (0.0-2.0); EOSINOPHILS # 0.9 10^3/ul (0.0-0.5); EOSINOPHILS % 8.7 % (0.0-7.0); HEMOGLOBIN 8.8 g/dl (14.0-18.0); LYMPHOCYTES # 1.4 10^3/ul (0.8-2.9); LYMPHOCYTES % 13.4 % (15.0-51.0); MEAN CORPUSCULAR HEMOGLOBIN 28.1 pg (29.0-33.0); MEAN CORPUSCULAR HGB CONC 31.4 g/dl (32.0-37.0); MEAN CORPUSCULAR VOLUME 89.5 fl (82.0-101.0); MEAN PLATELET VOLUME 12.6 fl (7.4-10.4); MONOCYTE # 0.7 10^3/ul (0.3-0.9); MONOCYTES % 6.6 % (0.0-11.0); NEUTROPHIL # 7.3 10^3/ul (1.6-7.5); NEUTROPHILS % 70.1 % (39.0-77.0); PLATELET COUNT 221 10^3/UL (140-415); RED BLOOD COUNT 3.13 10^6/ul (4.70-6.10); RED CELL DISTRIBUTION WIDTH 14.5 % (11.5-14.5); WHITE BLOOD COUNT 10.4 10^3/ul (4.8-10.8)
[2017-02-01] MEDS: THIAMINE IV SCH (09:17)
[2017-02-01] MEDS: DEXTROSE 5% IV SCH (09:17)
[2017-02-01] MEDS: POLYETHYLENE GLYCOL 17 GM PACKET NGT SCH (09:18)
[2017-02-01] MEDS: DOCUSATE SODIUM 10 MG/ML (10ML CUP) NGT SCH ×2 (09:18→21:10)
[2017-02-01] MEDS: VALPROIC ACID LIQUID CUP 250 MG/5 ML CUP NGT SCH ×2 (09:18→13:17)
[2017-02-01] MEDS: carBAMAZepine SUSP 20 MG/ML POSYG NGT SCH ×2 (09:18→21:11)
--- NOTE | 2017-02-01 09:22 | CONS ---
Date/Time of Note Date/Time of Note DATE: 02/01/17 TIME: 09:22 Consult Date/Type/Reason Admit Date/Time Dec 31, 2016 at 00:30 Initial Consult Date 12/31/16 Type of Consultation: Pulmonary Ordering Provider: JEAN MARIE BRAGG MD Subjective Patient still has significant agitation with lower doses of propofol. Associated with diaphoresis. Objective Vital Signs Date Time Temp Pulse Resp B/P Pulse Ox O2 Delivery O2 Flow Rate FiO2 02/01/17 08:00 30 02/01/17 08:00 100.3 108 24 156/96 98 Mechanical Ventilator Intake and Output 01/31/17 01/31/17 02/01/17 14:59 22:59 06:59 Intake Total 963.168 ml 1136.442 ml 1941.833 ml Output Total 30 ml 160 ml 380 ml Balance 933.168 ml 976.442 ml 1561.833 ml Exam GENERAL: Well-nourished well-developed gentleman tracheostomy in place VITAL SIGNS: see below. HEENT: Pupils equal, round, and reactive to light. CARDIAC: S1, S2, 1/6 systolic ejection murmur CHEST: Diminished air entry bilaterally. ABDOMEN: Mildly distended. Bowel sounds present no guarding or rebound EXTREMITIES: No cyanosis, clubbing edema +1 NEUROLOGIC: Generalized weakness Results/Medications Result Diagram: 02/01/17 0500 02/01/17 0500 Results 24 hrs Laboratory Tests Test 02/01/17 05:00 White Blood Count 10.4 # Red Blood Count 3.13 L Hemoglobin 8.8 L Hematocrit 28.0 L Mean Corpuscular Volume 89.5 Mean Corpuscular Hemoglobin 28.1 L Mean Corpuscular Hemoglobin Concent 31.4 L Red Cell Distribution Width 14.5 Platelet Count 221 Mean Platelet Volume 12.6 H Neutrophils % 70.1 Lymphocytes % 13.4 L Monocytes % 6.6 Eosinophils % 8.7 H Basophils % 0.5 Nucleated Red Blood Cells % 0.0 Neutrophils # 7.3 Lymphocytes # 1.4 Monocytes # 0.7 Eosinophils # 0.9 H Basophils # 0.1 Nucleated Red Blood Cells # 0.0 Sodium Level 137 Potassium Level 3.8 Chloride Level 100 Carbon Dioxide Level 24 Anion Gap 17 H Blood Urea Nitrogen 7 Creatinine 0.51 L Glucose Level 109 Calcium Level 7.5 L Phosphorus Level 4.2 Magnesium Level 1.6 L Medications Current Medications Acetaminophen (Tylenol Tab) 650 mg Q4H PRN PO pain/fever Last administered on 01/29/17 21:01; Admin Dose 650 MG; Start 12/31/16 at 01:00 Hydralazine HCl (Apresoline) 25 mg Q6H PRN PO sbp>160; Start 12/31/16 at 01:00 Enalaprilat (Vasotec Iv) 1.25 mg Q6H PRN IV sbp>160; Start 12/31/16 at 01:00 Ondansetron HCl (Zofran Inj) 4 mg Q4H PRN IV nausea; Start 12/31/16 at 01:00 Hydralazine HCl (Apresoline) 10 mg Q4H PRN IV ELEVATED SYSTOLIC BP Last administered on 01/28/17 14:57; Admin Dose 10 MG; Start 12/31/16 at 05:30 Labetalol HCl (Labetalol) 10 mg Q4H PRN IV SBP GREATER THAN 160 Last administered on 01/10/17 22:33; Admin Dose 10 MG; Start 01/01/17 at 12:00 IV Flush (NS 10 ml) 10 ml PRN PRN IV IV PROTOCOL; Start 01/02/17 at 17:00 Lorazepam 2 mg 2 mg Q2H PRN IV PRN Agitation. Last administered on 01/30/17 20:40; Admin Dose 2 MG; Start 01/04/17 at 09:00 Propofol (Diprivan) 100 ml @ 3.537 mls/ hr Q12H IV Last administered on 06:06; Admin Dose 35.37 MLS/HR; Start 01/10/17 at 09:30 Metoclopramide HCl (Reglan) 10 mg Q6 IV Last administered on 02/01/17 05:14; Admin Dose 10 MG; Start 01/11/17 at 12:00 Trazodone HCl 150 mg 150 mg HS PO Last administered on 01/31/17 21:29; Admin Dose 150 MG; Start 01/15/17 at 21:00 Thiamine HCl/ Dextrose (Vitamin B1/D5W) 101 ml @ 202 mls/hr DAILY IV Last administered on 02/01/17 09:17; Admin Dose 202 MLS/HR; Start 01/18/17 at 13: 30 Polyethylene Glycol 17 gm 17 gm DAILY NGT Last administered on 02/01/17 09:18 ; Admin Dose 17 GM; Start 01/19/17 at 10:00 Fentanyl (Sublimaze) 100 ml @ 2.5 mls/hr TITRATE IV Last administered on 02/01 04:27; Admin Dose 8 MLS/HR; Start 01/19/17 at 13:00 Carbamazepine 400 mg 400 mg BID NGT Last administered on 02/01/17 09:18; Admin Dose 400 MG; Start 01/22/17 at 21:00 Lorazepam/Dextrose (Ativan/D5W) 100 ml @ 0 mls/hr TITRATE IV Last administered on 01/31/17 23:38; Admin Dose 8 MLS/HR; Start 01/22/17 at 13:00 Haloperidol (Haldol) 5 mg Q6 PRN IV AGITATION Last administered on 01/29/17 21:02; Admin Dose 5 MG; Start 01/23/17 at 11:00 Valproate Sodium (Depakene Liquid Cup) 250 mg TID NGT Last administered on 09:18; Admin Dose 250 MG; Start 01/24/17 at 13:00 Lansoprazole (Prevacid) 30 mg BID@06,18 NGT Last administered on 02/01/17 05: 14; Admin Dose 30 MG; Start 01/24/17 at 18:00 Diphenhydramine HCl (Benadryl) 25 mg Q6H IV Last administered on 02/01/17 05: 14; Admin Dose 25 MG; Start 01/25/17 at 17:00 Docusate Sodium (Colace Liquid Cup) 100 mg BID NGT Last administered on 09:18; Admin Dose 100 MG; Start 01/25/17 at 21:00 Quetiapine Fumarate 200 mg 200 mg Q6 NGT Last administered on 02/01/17 05:14 ; Admin Dose 200 MG; Start 01/27/17 at 12:00 Dextrose/Sodium Chloride (D5-1/2ns) 1,000 ml @ 75 mls/hr [id number] IV Last administered on 01/31/17 23:39; Admin Dose 75 MLS/HR; Start 01/27/17 at 09:30 Assessment/Plan Chief Complaint/Hosp Course IMP: 1. 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 Acute Lung Injury/ARDS 3. History of drug overdose 4. 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 5. ALEX 6. Anemia 7. Required ongoing sedation with Ativan, fentanyl and Seroquel. DC propofol if tolerated RECS: 1. Status post tracheostomy and PEG. 2. Continue current vent settings for now 3. Tube feeds/Free H20 4. Minimize sedatives as tolerated 5. Continue antipsychotics Consider pain management evaluation for long-acting pain medications such as methadone. Problems: BRIANNA SAAVEDRA MD, [facility] Feb 01, 2017 09:22
[2017-02-01] MEDS ORDERED: MAGNESIUM SULFATE 2 GM/50 ML 50 ML IVPB ONE (09:30)
--- NOTE | 2017-02-01 09:48 | PN ---
Date/Time of Note Date/Time of Note DATE: 02/01/17 TIME: 09:32 Assessment/Plan VTE Prophylaxis VTE Prophylaxis Intervention: SCD's Lines/Catheters IV Catheter Type (from Nrs): PICC Line Central line still needed: Yes (IV access) Urinary Cath still in place: Yes Reason Cath still needed: other (indicate) (While intubated) Assessment/Plan Assessment/Plan 46 yo male with: 1. Severe encephalopathy 2ry to drug abuse likely Bath salts and/or synthetic marijuana and also bipolar disorder with violent behaviors and noncompliance with medications per previous psychiatry notes. I talked again to Joel, who is very familiar with Mr. Koenig at the mental health clinic, he does report again that the patient becomes manic and agitated at baseline despite the medications he is prescribed and supposed to take. No other clear etiology so far of encephalopathic, neurology on board, CT head 2 since admission are both wnl, EEG x2 showing encephalopathy, MRI brain wnl. Patient still with ongoing agitation and requiring multiple sedating agents. Reconciliation and titration of her psychiatric medications have been done, so far still unable to successfully de-escalate on the sedation. S/p Tracheostomy POD#4 and PEG tube placement POD#5 On Ativan drip, fentanyl drip, Haldol as needed. Back on propofol. Continue IV thiamine. 2. Acute respiratory Failure 2ry to severe Encephalopathy from Drug overuse, intubated, sedated and paralysed. Patient was briefly extubated last week for 2 -1/2 hours but had to be reintubated due to inability to protect his airway, of note he was still on sedating agents. WBC within normal now and chest x-ray has been better but with compressive atelectasis. Still on FiO2 of 30% and PEEP of 7. Status post tracheostomy Still on fentanyl gtt, Ativan gtt and Haldol prn. Back on propofol Patient has been restarted on Seroquel and Tegretol dosing adjusted to outpatient dosing. Trazodone resumed at night. 3. Bipolar disorder: Likely noncompliant with psychiatric medications. Medication resumed and adjusted to outpatient dosing based on the note from psychiatry 5 days prior to admission that were able to obtain last Wednesday, patient Seroquel can even be titrated higher, according to the notes he was on Seroquel XR, increased to 1000 mg nightly per the latest note. Now on Seroquel to 200 mg QID. Increased carbamazepine to 400 mg twice daily. Continue Haldol prn and on Ativan drip. Changed Depakene to 250 TID (patient on Depakote ER 500 mg nightly) Again per the girlfriend it is very likely that the patient was not fully compliant. Also talked to Joel today, very familiar with this patient at the [facility], patient again runs manic and is always agitated at baseline this is despite the multiple medications he has been prescribed as an outpatient, unclear if just difficult to control versus noncompliant. Joel will contact the patient's primary psychiatrist and get back to us with further recommendations if any, for now he does not see any changes that would be made. 4. Right foot Lisfranc fracture: Pain control and ? splint 5. Anemia: Hemoglobin stable at approx 8.8, status post 1 unit pRBC on 01/15. SCDs to lower extremities. On Reglan up to 10 mg IV q6 and proton pump inhibitors. Tolerating tube feedings so far. Prophylaxis: SCDs for DVT prophylaxis, Protonix for GI prophylaxis Disposition: Still in ICU, S/p PEG tube and Tracheostomy, so far unable to weaning off sedation or vent. Family meeting 01/14 did confirm that patient is noncompliant with medication, unfortunately he does have significant behavioral issues including violent behavior. He is a bipolar that seems to be mostly manic most of the time and noncompliant with medications at all. Drug use is an issue. We will await further recommendations from the patient's primary psychiatrist, he is supposed to call me back. I have discussed the patient's current clinical status and need for psychiatric assistance with Joel at the [facility] (# [phone]) Hopefully, he will be calmer and will be able to wean him off the IV drips/ sedating agents for subacute disposition. Jayad, the patient's 1/2 sister has made us understand that she will not be involved in the primary caregiving of patient and he will need to be placed at the time of discharge no matter what his condition. Subjective 24 Hr Interval Summary Free Text/Dictation Patient still well agitated, on multiple sedating drips including fentanyl, propofol, Ativan. I have called his mental health program again, I have talked to Joel and we went through his medication list and current sedating agents, he will contact the patient's psychiatrist and get back to us regarding any potential additional medications or changes we could make, however for now he agrees that the patient is on maximum dose of muscle of the medications and that after 2 weeks we should have some response. He also did report that the patient despite all the medications he is supposed to take as an outpatient, runs manic at baseline and significantly agitated at baseline. Patient remains hemodynamically stable, he is status post tracheostomy and PEG tube placement, he is on the ventilator and tolerating tube feedings. Exam/Review of Systems Vital Signs Vitals Vital Signs Date Time Temp Pulse Resp B/P Pulse Ox O2 Delivery O2 Flow Rate FiO2 02/01/17 08:00 30 02/01/17 08:00 100.3 108 24 156/96 98 Mechanical Ventilator Intake and Output 01/31/17 01/31/17 02/01/17 15:00 23:00 07:00 Intake Total 913.167 ml 1193.516 ml 1769 ml Output Total 200 ml 340 ml Balance 913.167 ml 993.516 ml 1429 ml Exam Constitutional: other (Agitated, and restraints. Multiple sedating agents, status post tracheostomy, on vent) Respiratory: clear to auscultation, other (Status post tracheostomy, on vent) Cardiovascular: nl pulses, regular rate and rhythm Gastrointestinal: non-tender, other (Status post PEG tube placement, tolerating tube feedings), soft Musculoskeletal: nl extremities to inspection Extremities: normal pulses, other (No edema, clubbing or cyanosis) Neurological: other (Remains agitated, not following commands, try to open eyes and moving all 4 extremities) Results Result Diagram: 02/01/17 0500 02/01/17 0500 Results 24 hrs Laboratory Tests Test 02/01/17 05:00 White Blood Count 10.4 # Red Blood Count 3.13 L Hemoglobin 8.8 L Hematocrit 28.0 L Mean Corpuscular Volume 89.5 Mean Corpuscular Hemoglobin 28.1 L Mean Corpuscular Hemoglobin Concent 31.4 L Red Cell Distribution Width 14.5 Platelet Count 221 Mean Platelet Volume 12.6 H Neutrophils % 70.1 Lymphocytes % 13.4 L Monocytes % 6.6 Eosinophils % 8.7 H Basophils % 0.5 Nucleated Red Blood Cells % 0.0 Neutrophils # 7.3 Lymphocytes # 1.4 Monocytes # 0.7 Eosinophils # 0.9 H Basophils # 0.1 Nucleated Red Blood Cells # 0.0 Sodium Level 137 Potassium Level 3.8 Chloride Level 100 Carbon Dioxide Level 24 Anion Gap 17 H Blood Urea Nitrogen 7 Creatinine 0.51 L Glucose Level 109 Calcium Level 7.5 L Phosphorus Level 4.2 Magnesium Level 1.6 L Medications Medications Current Medications Acetaminophen (Tylenol Tab) 650 mg Q4H PRN PO pain/fever Last administered on 01/29/17 21:01; Admin Dose 650 MG; Start 12/31/16 at 01:00 Hydralazine HCl (Apresoline) 25 mg Q6H PRN PO sbp>160; Start 12/31/16 at 01:00 Enalaprilat (Vasotec Iv) 1.25 mg Q6H PRN IV sbp>160; Start 12/31/16 at 01:00 Ondansetron HCl (Zofran Inj) 4 mg Q4H PRN IV nausea; Start 12/31/16 at 01:00 Hydralazine HCl (Apresoline) 10 mg Q4H PRN IV ELEVATED SYSTOLIC BP Last administered on 01/28/17 14:57; Admin Dose 10 MG; Start 12/31/16 at 05:30 Labetalol HCl (Labetalol) 10 mg Q4H PRN IV SBP GREATER THAN 160 Last administered on 01/10/17 22:33; Admin Dose 10 MG; Start 01/01/17 at 12:00 IV Flush (NS 10 ml) 10 ml PRN PRN IV IV PROTOCOL; Start 01/02/17 at 17:00 Lorazepam 2 mg 2 mg Q2H PRN IV PRN Agitation. Last administered on 01/30/17 20:40; Admin Dose 2 MG; Start 01/04/17 at 09:00 Propofol (Diprivan) 100 ml @ 3.537 mls/ hr Q12H IV Last administered on 06:06; Admin Dose 35.37 MLS/HR; Start 01/10/17 at 09:30 Metoclopramide HCl (Reglan) 10 mg Q6 IV Last administered on 02/01/17 05:14; Admin Dose 10 MG; Start 01/11/17 at 12:00 Trazodone HCl 150 mg 150 mg HS PO Last administered on 01/31/17 21:29; Admin Dose 150 MG; Start 01/15/17 at 21:00 Thiamine HCl/ Dextrose (Vitamin B1/D5W) 101 ml @ 202 mls/hr DAILY IV Last administered on 02/01/17 09:17; Admin Dose 202 MLS/HR; Start 01/18/17 at 13: 30 Polyethylene Glycol 17 gm 17 gm DAILY NGT Last administered on 02/01/17 09:18 ; Admin Dose 17 GM; Start 01/19/17 at 10:00 Fentanyl (Sublimaze) 100 ml @ 2.5 mls/hr TITRATE IV Last administered on 02/01 04:27; Admin Dose 8 MLS/HR; Start 01/19/17 at 13:00 Carbamazepine 400 mg 400 mg BID NGT Last administered on 02/01/17 09:18; Admin Dose 400 MG; Start 01/22/17 at 21:00 Lorazepam/Dextrose (Ativan/D5W) 100 ml @ 0 mls/hr TITRATE IV Last administered on 01/31/17 23:38; Admin Dose 8 MLS/HR; Start 01/22/17 at 13:00 Haloperidol (Haldol) 5 mg Q6 PRN IV AGITATION Last administered on 01/29/17 21:02; Admin Dose 5 MG; Start 01/23/17 at 11:00 Valproate Sodium (Depakene Liquid Cup) 250 mg TID NGT Last administered on 09:18; Admin Dose 250 MG; Start 01/24/17 at 13:00 Lansoprazole (Prevacid) 30 mg BID@,18 NGT Last administered on 02/01/17 05: 14; Admin Dose 30 MG; Start 01/24/17 at 18:00 Diphenhydramine HCl (Benadryl) 25 mg Q6H IV Last administered on 02/01/17 05: 14; Admin Dose 25 MG; Start 01/25/17 at 17:00 Docusate Sodium (Colace Liquid Cup) 100 mg BID NGT Last administered on 09:18; Admin Dose 100 MG; Start 01/25/17 at 21:00 Quetiapine Fumarate 200 mg 200 mg Q6 NGT Last administered on 02/01/17 05:14 ; Admin Dose 200 MG; Start 01/27/17 at 12:00 Dextrose/Sodium Chloride 1,000 ml @ 75 mls/hr [id number] IV Last administered on 01/31/17 23:39; Admin Dose 75 MLS/HR; Start 01/27/17 at 09:30 Magnesium Sulfate (Magnesium Sulfate 2 Gm/50 ml) 50 ml @ 25 mls/hr ONCE ONCE IVPB ; Start 02/01/17 at 09:30; Stop 02/01/17 at 11:29 TRENT NEWMAN Feb 01, 2017 09:42
[2017-02-01] MEDS: LABETALOL HCL 20MG INJ IV PRN (12:01)
--- NOTE | 2017-02-01 12:03 | PN ---
Date/Time of Note Date/Time of Note DATE: 02/01/17 TIME: 12:02 Assessment/Plan Lines/Catheters IV Catheter Type (from Nrsg): PICC Line Lewis in Place (from Nrsg): Yes Assessment/Plan Chief Complaint/Hosp Course IMPRESSION: Respiratory failure. SP tracheostomy. tomorrow. continue vent support Discussed with the nursing staff. Problems: Subjective 24 Hr Interval Summary Constitutional: improved Pain Control: mild Exam/Review of Systems Vital Signs Vitals Vital Signs Date Time Temp Pulse Resp B/P Pulse Ox O2 Delivery O2 Flow Rate FiO2 02/01/17 08:00 30 02/01/17 08:00 100.3 108 24 156/96 98 Mechanical Ventilator Intake and Output 01/31/17 01/31/17 02/01/17 15:00 23:00 07:00 Intake Total 913.167 ml 1193.516 ml 1769 ml Output Total 200 ml 340 ml Balance 913.167 ml 993.516 ml 1429 ml Exam ENMT: mucosa pink and moist, nl external ears & nose, nl lips & teeth, nl nasal mucosa & septum Neck: non-tender, supple Respiratory: clear to auscultation, normal air movement Cardiovascular: nl pulses, regular rate and rhythm Results Result Diagram: 02/01/17 0500 02/01/17 0500 JOSE GUAJARDO MD Feb 01, 2017 12:03
[2017-02-01] MEDS: LORAZEPAM (MDV) 100 MG in DEXTROSE 5% 50 ML IV SCH (13:18)
[2017-02-01] MEDS: DEXTROSE 5%-0.45% NACL 1,000 ML IV SCH ×2 (13:18→22:50)
--- NOTE | 2017-02-01 16:28 | CONS ---
Date/Time of Note Date/Time of Note DATE: 02/01/17 TIME: 16:23 Assessment/Plan Assessment/Plan Additional Assessment/Plan Brief note full note to follow Altered mental status Bipolar 2 diagnosis by history Aggressive behavior by history Substance abuse Respiratory failure There is a possibility that this represents neuroleptic malignant syndrome, just a possibility but also possibility that antiepileptics and antipsychotics may in small patient population produce similar symptoms. However in view of the fact the patient has not responded to prior interventions will begin treatment with dantrolene and bromocriptine and amantadine. I have discontinued antipsychotics and other centrally acting medications but will continue with Ativan and Seroquel, attempt tapering down off propofol. Consultation Date/Type/Reason Admit Date/Time Dec 31, 2016 at 00:30 Constitutional: disoriented Psychological: no complaints Social History Smoking Status: Unknown if ever smoked Exam/Review of Systems Vital Signs Vitals Vital Signs Date Time Temp Pulse Resp B/P Pulse Ox O2 Delivery O2 Flow Rate FiO2 02/01/17 12:00 100.9 122 33 165/88 99 Mechanical Ventilator 02/01/17 08:00 30 Intake and Output 01/31/17 01/31/17 02/01/17 14:59 22:59 06:59 Intake Total 963.168 ml 1136.442 ml 1941.833 ml Output Total 30 ml 160 ml 380 ml Balance 933.168 ml 976.442 ml 1561.833 ml Exam Constitutional: distress, non-verbal Respiratory: congested cough, crackles/rales Cardiovascular: nl pulses, regular rate and rhythm Neurological: other (Grossly normal nonfocal examination other than the patient being altered and sedated) Results Result Diagram: 02/01/17 0500 02/01/17 0500 Results 24 hrs Laboratory Tests Test 02/01/17 05:00 White Blood Count 10.4 # Red Blood Count 3.13 L Hemoglobin 8.8 L Hematocrit 28.0 L Mean Corpuscular Volume 89.5 Mean Corpuscular Hemoglobin 28.1 L Mean Corpuscular Hemoglobin Concent 31.4 L Red Cell Distribution Width 14.5 Platelet Count 221 Mean Platelet Volume 12.6 H Neutrophils % 70.1 Lymphocytes % 13.4 L Monocytes % 6.6 Eosinophils % 8.7 H Basophils % 0.5 Nucleated Red Blood Cells % 0.0 Neutrophils # 7.3 Lymphocytes # 1.4 Monocytes # 0.7 Eosinophils # 0.9 H Basophils # 0.1 Nucleated Red Blood Cells # 0.0 Sodium Level 137 Potassium Level 3.8 Chloride Level 100 Carbon Dioxide Level 24 Anion Gap 17 H Blood Urea Nitrogen 7 Creatinine 0.51 L Glucose Level 109 Calcium Level 7.5 L Phosphorus Level 4.2 Magnesium Level 1.6 L Medications Medications Current Medications Acetaminophen (Tylenol Tab) 650 mg Q4H PRN PO pain/fever Last administered on 01/29/17 21:01; Admin Dose 650 MG; Start 12/31/16 at 01:00 Hydralazine HCl (Apresoline) 25 mg Q6H PRN PO sbp>160; Start 12/31/16 at 01:00 Enalaprilat (Vasotec Iv) 1.25 mg Q6H PRN IV sbp>160; Start 12/31/16 at 01:00 Ondansetron HCl (Zofran Inj) 4 mg Q4H PRN IV nausea; Start 12/31/16 at 01:00 Hydralazine HCl (Apresoline) 10 mg Q4H PRN IV ELEVATED SYSTOLIC BP Last administered on 01/28/17 14:57; Admin Dose 10 MG; Start 12/31/16 at 05:30 IV Flush (NS 10 ml) 10 ml PRN PRN IV IV PROTOCOL; Start 01/02/17 at 17:00 Lorazepam 2 mg 2 mg Q2H PRN IV PRN Agitation. Last administered on 01/30/17 20:40; Admin Dose 2 MG; Start 01/04/17 at 09:00 Propofol 100 ml @ 3.537 mls/ hr Q12H IV Last administered on 02/01/17 13:18 ; Admin Dose 28.296 MLS/HR; Start 01/10/17 at 09:30 Thiamine HCl/ Dextrose (Vitamin B1/D5W) 101 ml @ 202 mls/hr DAILY IV Last administered on 02/01/17 09:17; Admin Dose 202 MLS/HR; Start 01/18/17 at 13: 30 Polyethylene Glycol (Miralax) 17 gm DAILY NGT Last administered on 02/01/17 09:18; Admin Dose 17 GM; Start 01/19/17 at 10:00 Carbamazepine 400 mg 400 mg BID NGT Last administered on 02/01/17 09:18; Admin Dose 400 MG; Start 01/22/17 at 21:00 Lorazepam/Dextrose (Ativan/D5W) 100 ml @ 0 mls/hr TITRATE IV Last administered on 02/01/17 13:18; Admin Dose 7 MLS/HR; Start 01/22/17 at 13:00 Lansoprazole (Prevacid) 30 mg BID@06,18 NGT Last administered on 02/01/17 05: 14; Admin Dose 30 MG; Start 01/24/17 at 18:00 Docusate Sodium (Colace Liquid Cup) 100 mg BID NGT Last administered on 09:18; Admin Dose 100 MG; Start 01/25/17 at 21:00 Quetiapine Fumarate 200 mg 200 mg Q6 NGT Last administered on 02/01/17 11:37 ; Admin Dose 200 MG; Start 01/27/17 at 12:00 Dextrose/Sodium Chloride (D5-1/2ns) 1,000 ml @ 75 mls/hr [id number] IV Last administered on 02/01/17 13:18; Admin Dose 75 MLS/HR; Start 01/27/17 at 09:30 Propranolol HCl (Inderal Iv) 5 mg Q6 IV ; Start 02/01/17 at 18:00; Status UNV Dantrolene Sodium (Dantrium) 25 mg TID PO ; Start 02/01/17 at 21:00; Status UNV Bromocriptine Mesylate (Parlodel) 2.5 mg TID PO ; Start 02/01/17 at 21:00; Status UNV Amantadine HCl (Symmetrel) 200 mg BID GTB ; Start 02/01/17 at 21:00; Status UNV NAZARIO LAURENT Feb 01, 2017 16:28
[2017-02-01] MEDS: AMANTADINE 100 MG/10 ML POSYR GTB SCH (18:21)
[2017-02-01] MEDS: PROPRANOLOL 1 MG INJ IV SCH (18:21)
[2017-02-01] MEDS: DANTROLENE 25 MG CAP PO SCH (18:21)
[2017-02-01] MEDS: BROMOCRIPTINE 2.5 MG TAB PO SCH (21:10)
[2017-02-01] MEDS: hydrALAzine 20 MG INJ IV PRN (22:10)
[2017-02-02] VITALS (50 sets, daily range): BP systolic 99–160; BP diastolic 59–113; PULSE 87–119; RESP 21–43
[2017-02-02] MEDS: LORAZEPAM (MDV) 100 MG in DEXTROSE 5% 50 ML IV SCH ×2 (00:34→13:21)
[2017-02-02] MEDS: QUETIAPINE 100 MG TAB NGT SCH ×4 (00:46→18:40)
[2017-02-02] MEDS: IPRATROPIUM (HFA) 12.9 GM INHALER INH SCH ×4 (01:38→19:09)
[2017-02-02] MEDS: ALBUTEROL HFA 8 GM INHALER INH SCH ×4 (01:38→19:09)
[2017-02-02] MEDS: PROPOFOL 100 ML IV SCH ×5 (02:55→18:42)
[2017-02-02 06:06] LABS: BASOPHIL # 0.1 10^3/ul (0.0-0.1); BASOPHILS % 0.4 % (0.0-2.0); EOSINOPHILS # 0.4 10^3/ul (0.0-0.5); EOSINOPHILS % 2.9 % (0.0-7.0); HEMOGLOBIN 9.3 g/dl (14.0-18.0); LYMPHOCYTES # 1.2 10^3/ul (0.8-2.9); LYMPHOCYTES % 9.5 % (15.0-51.0); MEAN CORPUSCULAR HEMOGLOBIN 29.4 pg (29.0-33.0); MEAN CORPUSCULAR HGB CONC 33.2 g/dl (32.0-37.0); MEAN CORPUSCULAR VOLUME 88.6 fl (82.0-101.0); MEAN PLATELET VOLUME 12.8 fl (7.4-10.4); MONOCYTE # 0.9 10^3/ul (0.3-0.9); MONOCYTES % 7.3 % (0.0-11.0); NEUTROPHIL # 10.2 10^3/ul (1.6-7.5); NEUTROPHILS % 79.4 % (39.0-77.0); PLATELET COUNT 246 10^3/UL (140-415); RED BLOOD COUNT 3.16 10^6/ul (4.70-6.10); RED CELL DISTRIBUTION WIDTH 14.3 % (11.5-14.5); WHITE BLOOD COUNT 12.9 10^3/ul (4.8-10.8)
[2017-02-02] MEDS: LANSOPRAZOLE 30 MG CAP NGT SCH ×2 (06:17→18:40)
[2017-02-02 06:21] LABS: CALCIUM 8.2 mg/dl (8.4-10.2); CREATININE 0.57 mg/dl (0.61-1.24); POTASSIUM 4.2 mmol/L (3.5-5.1)
[2017-02-02] MEDS: FENTAnyl (DRIP) 1000 mcg/100mL 100 ML IV SCH ×2 (06:21→20:04)
[2017-02-02 06:23] LABS: PHOSPHORUS 4.5 mg/dl (2.5-4.9)
[2017-02-02] MEDS: POLYETHYLENE GLYCOL 17 GM PACKET NGT SCH (09:00)
[2017-02-02] MEDS: DOCUSATE SODIUM 10 MG/ML (10ML CUP) NGT SCH ×2 (09:00→20:04)
[2017-02-02] MEDS: THIAMINE IV SCH (09:12)
[2017-02-02] MEDS: DEXTROSE 5% IV SCH (09:12)
[2017-02-02] MEDS: DANTROLENE 25 MG CAP PO SCH ×3 (09:16→20:04)
[2017-02-02] MEDS: BROMOCRIPTINE 2.5 MG TAB PO SCH ×3 (09:17→20:04)
[2017-02-02] MEDS: carBAMAZepine SUSP 20 MG/ML POSYG NGT SCH ×2 (09:17→20:03)
[2017-02-02] MEDS: AMANTADINE 100 MG/10 ML POSYR GTB SCH ×2 (09:17→20:04)
[2017-02-02] MEDS: PROPRANOLOL 1 MG INJ IV SCH ×2 (09:18→20:03)
--- NOTE | 2017-02-02 09:25 | PN ---
Date/Time of Note Date/Time of Note DATE: 02/02/17 TIME: 09:14 Assessment/Plan VTE Prophylaxis VTE Prophylaxis Intervention: SCD's Lines/Catheters IV Catheter Type (from Nrs): PICC Line Central line still needed: Yes (IV access) Urinary Cath still in place: Yes Reason Cath still needed: other (indicate) (Intubated and sedated) Assessment/Plan Assessment/Plan 46 yo male with: 1. Severe encephalopathy 2ry to drug abuse likely Bath salts and/or synthetic marijuana and also bipolar disorder with violent behaviors and noncompliance with medications per previous psychiatry notes. I talked again to Joel, who is very familiar with Mr. Koenig at the mental health clinic, he does report again that the patient becomes manic and agitated at baseline despite the medications he is prescribed and supposed to take. No other clear etiology so far of encephalopathic, neurology on board, CT head 2 since admission are both wnl, EEG x2 showing encephalopathy, MRI brain wnl. Patient still with ongoing agitation and requiring multiple sedating agents. Reconciliation and titration of her psychiatric medications have been done, so far still unable to successfully de-escalate on the sedation. Appreciate recommendations from a palliative care/pain management, Dr. John Possibility of neuroleptic malignant syndrome raised, medication adjustments made. We will continue to monitor. S/p Tracheostomy POD#5 and PEG tube placement POD#6 On Ativan drip, fentanyl drip, propofol. Inderal, bromocriptine, amantadine, dantrolene, propanolol added. Continue IV thiamine. 2. Acute respiratory Failure 2ry to severe Encephalopathy from Drug overuse, intubated, sedated and paralysed. Patient was briefly extubated last week for 2 -1/2 hours but had to be reintubated due to inability to protect his airway, of note he was still on sedating agents. WBC within normal now and chest x-ray has been better but with compressive atelectasis. Still on FiO2 of 30% and PEEP of 7. Status post tracheostomy Still on fentanyl gtt, Ativan gtt and Haldol prn. Back on propofol On Seroquel and Tegretol. Depakote, trazodone, Haldol discontinued. 3. Bipolar disorder: Likely noncompliant with psychiatric medications. Medication resumed and adjusted to outpatient dosing based on the note from psychiatry 5 days prior to admission that were able to obtain last Wednesday, patient Seroquel can even be titrated higher, according to the notes he was on Seroquel XR, increased to 1000 mg nightly per the latest note. Now on Seroquel to 200 mg QID. Carbamazepine to 400 mg twice daily. Continue on Ativan drip. Again per the girlfriend it is very likely that the patient was not fully compliant. Also talked to Joel yesterday, very familiar with this patient at the [facility], patient again runs manic and is always agitated at baseline this is despite the multiple medications he has been prescribed as an outpatient, unclear if just difficult to control versus noncompliant. Joel will contact the patient's primary psychiatrist and get back to us with further recommendations if any, for now he does not see any changes that would be made. 4. Right foot Lisfranc fracture: Pain control and ? splint 5. Anemia: Hemoglobin stable at approx 9.3, status post 1 unit pRBC on 01/15. SCDs to lower extremities. Continue proton pump inhibitors. Monitor tolerance of tube feedings of Reglan. 6. Fevers: Over the past 12 hours, WBC elevated with a slight left shift, patient has been charles cultured. Follow-up urine analysis and sputum Gram stain, may need to start antibiotics sustained fevers. Prophylaxis: SCDs for DVT prophylaxis, Protonix for GI prophylaxis Disposition: Still in ICU, S/p PEG tube and Tracheostomy, so far unable to weaning off sedation or vent. Family meeting 01/14 did confirm that patient is noncompliant with medication, unfortunately he does have significant behavioral issues including violent behavior. He is a bipolar that seems to be mostly manic most of the time and noncompliant with medications at all. Drug use is an issue. We will await further recommendations from the patient's primary psychiatrist, he is supposed to call me back. I have discussed the patient's current clinical status and need for psychiatric assistance with Joel at the [facility] (# [phone]) Appreciate recommendations from Dr. John, medication changes effective as of this morning, will monitor for clinical improvement hopefully. Hopefully, he will be calmer and will be able to wean him off the IV drips/ sedating agents for subacute disposition. Jayda, the patient's 1/2 sister has made us understand that she will not be involved in the primary caregiving of patient and he will need to be placed at the time of discharge no matter what his condition. Subjective 24 Hr Interval Summary Free Text/Dictation Patient to be started on treatment for possible neuroleptic malignant syndrome, appreciate recommendations from Dr. John, medications are being changed accordingly, patient will be taken off Depakote, also has been taken off Reglan. Of note those medications were started 2 weeks into his admission when he already was having the current symptoms approximately 2 weeks. Patient's have been febrile yesterday and today, white blood cell count of 12K today. Exam/Review of Systems Vital Signs Vitals Vital Signs Date Time Temp Pulse Resp B/P Pulse Ox O2 Delivery O2 Flow Rate FiO2 02/02/17 08:00 97 26 105/67 100 02/02/17 06:30 Mechanical Ventilator 02/02/17 05:50 30 02/02/17 04:00 98.9 Intake and Output 02/01/17 02/01/17 02/02/17 15:00 23:00 07:00 Intake Total 1619.905 ml 1444.368 ml 833.592 ml Output Total 1410 ml 1590 ml 750 ml Balance 209.905 ml -145.632 ml 83.592 ml Exam Constitutional: other (On multiple sedating agents, on ventilators,) Respiratory: diminished breath sounds (Bases bilaterally), other (Lots of secretions noted, on ventilator, status post tracheostomy) Cardiovascular: nl pulses, regular rate and rhythm Gastrointestinal: non-tender, other (G-tube in place.), soft Musculoskeletal: nl extremities to inspection Extremities: normal pulses, other (No edema, clubbing or cyanosis) Neurological: other (Dated, on vent status post tracheostomy) Results Result Diagram: 02/02/17 0500 02/02/17 0500 Results 24 hrs Laboratory Tests Test 02/02/17 05:00 White Blood Count 12.9 #H Red Blood Count 3.16 L Hemoglobin 9.3 L Hematocrit 28.0 L Mean Corpuscular Volume 88.6 Mean Corpuscular Hemoglobin 29.4 Mean Corpuscular Hemoglobin Concent 33.2 Red Cell Distribution Width 14.3 Platelet Count 246 Mean Platelet Volume 12.8 H Neutrophils % 79.4 H Lymphocytes % 9.5 L Monocytes % 7.3 Eosinophils % 2.9 Basophils % 0.4 Nucleated Red Blood Cells % 0.0 Neutrophils # 10.2 H Lymphocytes # 1.2 Monocytes # 0.9 Eosinophils # 0.4 Basophils # 0.1 Nucleated Red Blood Cells # 0.0 Sodium Level 138 Potassium Level 4.2 Chloride Level 101 Carbon Dioxide Level 26 Anion Gap 15 Blood Urea Nitrogen 7 Creatinine 0.57 L Glucose Level 133 Calcium Level 8.2 L Phosphorus Level 4.5 Magnesium Level 2.0 Imaging Free Text/Dictation Chest x-ray pending Medications Medications Current Medications Acetaminophen (Tylenol Tab) 650 mg Q4H PRN PO pain/fever Last administered on 01/29/17 21:01; Admin Dose 650 MG; Start 12/31/16 at 01:00 Hydralazine HCl (Apresoline) 25 mg Q6H PRN PO sbp>160; Start 12/31/16 at 01:00 Enalaprilat (Vasotec Iv) 1.25 mg Q6H PRN IV sbp>160; Start 12/31/16 at 01:00 Ondansetron HCl (Zofran Inj) 4 mg Q4H PRN IV nausea; Start 12/31/16 at 01:00 Hydralazine HCl (Apresoline) 10 mg Q4H PRN IV ELEVATED SYSTOLIC BP Last administered on 02/01/17 22:10; Admin Dose 10 MG; Start 12/31/16 at 05:30 IV Flush (NS 10 ml) 10 ml PRN PRN IV IV PROTOCOL; Start 01/02/17 at 17:00 Lorazepam 2 mg 2 mg Q2H PRN IV PRN Agitation. Last administered on 01/30/17 20:40; Admin Dose 2 MG; Start 01/04/17 at 09:00 Propofol 100 ml @ 3.537 mls/ hr Q12H IV Last administered on 02/02/17 09:11 ; Admin Dose 24.759 MLS/HR; Start 01/10/17 at 09:30 Thiamine HCl/ Dextrose (Vitamin B1/D5W) 101 ml @ 202 mls/hr DAILY IV Last administered on 02/02/17 09:12; Admin Dose 202 MLS/HR; Start 01/18/17 at 13: 30 Polyethylene Glycol (Miralax) 17 gm DAILY NGT Last administered on 02/01/17 09:18; Admin Dose 17 GM; Start 01/19/17 at 10:00 Carbamazepine 400 mg 400 mg BID NGT Last administered on 02/01/17 21:11; Admin Dose 400 MG; Start 01/22/17 at 21:00 Lorazepam/Dextrose (Ativan/D5W) 100 ml @ 0 mls/hr TITRATE IV Last administered on 02/02/17 00:34; Admin Dose 7 MLS/HR; Start 01/22/17 at 13:00 Lansoprazole (Prevacid) 30 mg BID@06,18 NGT Last administered on 02/02/17 06: 17; Admin Dose 30 MG; Start 01/24/17 at 18:00 Docusate Sodium (Colace Liquid Cup) 100 mg BID NGT Last administered on 21:10; Admin Dose 100 MG; Start 01/25/17 at 21:00 Quetiapine Fumarate 200 mg 200 mg Q6 NGT Last administered on 02/02/17 06:20 ; Admin Dose 200 MG; Start 01/27/17 at 12:00 Dextrose/Sodium Chloride (D5-1/2ns) 1,000 ml @ 75 mls/hr [id number] IV Last administered on 02/01/17 22:50; Admin Dose 75 MLS/HR; Start 01/27/17 at 09:30 Propranolol HCl (Inderal Iv) 2 mg BID IV Last administered on 02/01/17 18:21 ; Admin Dose 2 MG; Start 02/01/17 at 17:00 Dantrolene Sodium (Dantrium) 25 mg TID PO Last administered on 02/01/17 18:21 ; Admin Dose 25 MG; Start 02/01/17 at 18:00 Bromocriptine Mesylate (Parlodel) 2.5 mg TID PO Last administered on 21:10; Admin Dose 2.5 MG; Start 02/01/17 at 21:00 Amantadine HCl 200 mg 200 mg BID GTB Last administered on 02/01/17 18:21; Admin Dose 200 MG; Start 02/01/17 at 18:00 Fentanyl (Sublimaze) 100 ml @ 2.5 mls/hr TITRATE IV Last administered on 02/02 06:21; Admin Dose 0.7 MLS/HR; Start 02/01/17 at 18:00 TRENT NEWMAN Feb 02, 2017 09:24
--- NOTE | 2017-02-02 10:11 | CONS ---
Date/Time of Note Date/Time of Note DATE: 02/02/17 TIME: 10:10 Consult Date/Type/Reason Admit Date/Time Dec 31, 2016 at 00:30 Initial Consult Date 12/31/16 Type of Consultation: Pulmonary Ordering Provider: JEAN MARIE BRAGG MD Subjective Patient continues sedation with fentanyl and Versed and propofol. Objective Vital Signs Date Time Temp Pulse Resp B/P Pulse Ox O2 Delivery O2 Flow Rate FiO2 02/02/17 09:05 87 23 100 30 02/02/17 08:00 105/67 02/02/17 06:30 Mechanical Ventilator 02/02/17 04:00 98.9 Intake and Output 02/01/17 02/01/17 02/02/17 15:00 23:00 07:00 Intake Total 1619.905 ml 1444.368 ml 833.592 ml Output Total 1410 ml 1590 ml 750 ml Balance 209.905 ml -145.632 ml 83.592 ml Exam GENERAL: Well-nourished well-developed gentleman tracheostomy in place VITAL SIGNS: see below. HEENT: Pupils equal, round, and reactive to light. CARDIAC: S1, S2, 1/6 systolic ejection murmur CHEST: Diminished air entry bilaterally. ABDOMEN: Mildly distended. Bowel sounds present no guarding or rebound EXTREMITIES: No cyanosis, clubbing edema +1 NEUROLOGIC: Generalized weakness Results/Medications Result Diagram: 02/02/17 0500 02/02/17 0500 Results 24 hrs Laboratory Tests Test 02/02/17 05:00 White Blood Count 12.9 #H Red Blood Count 3.16 L Hemoglobin 9.3 L Hematocrit 28.0 L Mean Corpuscular Volume 88.6 Mean Corpuscular Hemoglobin 29.4 Mean Corpuscular Hemoglobin Concent 33.2 Red Cell Distribution Width 14.3 Platelet Count 246 Mean Platelet Volume 12.8 H Neutrophils % 79.4 H Lymphocytes % 9.5 L Monocytes % 7.3 Eosinophils % 2.9 Basophils % 0.4 Nucleated Red Blood Cells % 0.0 Neutrophils # 10.2 H Lymphocytes # 1.2 Monocytes # 0.9 Eosinophils # 0.4 Basophils # 0.1 Nucleated Red Blood Cells # 0.0 Sodium Level 138 Potassium Level 4.2 Chloride Level 101 Carbon Dioxide Level 26 Anion Gap 15 Blood Urea Nitrogen 7 Creatinine 0.57 L Glucose Level 133 Calcium Level 8.2 L Phosphorus Level 4.5 Magnesium Level 2.0 Medications Current Medications Acetaminophen (Tylenol Tab) 650 mg Q4H PRN PO pain/fever Last administered on 01/29/17 21:01; Admin Dose 650 MG; Start 12/31/16 at 01:00 Hydralazine HCl (Apresoline) 25 mg Q6H PRN PO sbp>160; Start 12/31/16 at 01:00 Enalaprilat (Vasotec Iv) 1.25 mg Q6H PRN IV sbp>160; Start 12/31/16 at 01:00 Ondansetron HCl (Zofran Inj) 4 mg Q4H PRN IV nausea; Start 12/31/16 at 01:00 Hydralazine HCl (Apresoline) 10 mg Q4H PRN IV ELEVATED SYSTOLIC BP Last administered on 02/01/17 22:10; Admin Dose 10 MG; Start 12/31/16 at 05:30 IV Flush (NS 10 ml) 10 ml PRN PRN IV IV PROTOCOL; Start 01/02/17 at 17:00 Lorazepam 2 mg 2 mg Q2H PRN IV PRN Agitation. Last administered on 01/30/17 20:40; Admin Dose 2 MG; Start 01/04/17 at 09:00 Propofol 100 ml @ 3.537 mls/ hr Q12H IV Last administered on 02/02/17 09:11 ; Admin Dose 24.759 MLS/HR; Start 01/10/17 at 09:30 Thiamine HCl/ Dextrose (Vitamin B1/D5W) 101 ml @ 202 mls/hr DAILY IV Last administered on 02/02/17 09:12; Admin Dose 202 MLS/HR; Start 01/18/17 at 13: 30 Polyethylene Glycol (Miralax) 17 gm DAILY NGT Last administered on 02/01/17 09:18; Admin Dose 17 GM; Start 01/19/17 at 10:00 Carbamazepine 400 mg 400 mg BID NGT Last administered on 02/02/17 09:17; Admin Dose 400 MG; Start 01/22/17 at 21:00 Lorazepam/Dextrose (Ativan/D5W) 100 ml @ 0 mls/hr TITRATE IV Last administered on 02/02/17 00:34; Admin Dose 7 MLS/HR; Start 01/22/17 at 13:00 Lansoprazole (Prevacid) 30 mg BID@06,18 NGT Last administered on 02/02/17 06: 17; Admin Dose 30 MG; Start 01/24/17 at 18:00 Docusate Sodium (Colace Liquid Cup) 100 mg BID NGT Last administered on 21:10; Admin Dose 100 MG; Start 01/25/17 at 21:00 Quetiapine Fumarate 200 mg 200 mg Q6 NGT Last administered on 02/02/17 06:20 ; Admin Dose 200 MG; Start 01/27/17 at 12:00 Dextrose/Sodium Chloride (D5-1/2ns) 1,000 ml @ 75 mls/hr [id number] IV Last administered on 02/01/17 22:50; Admin Dose 75 MLS/HR; Start 01/27/17 at 09:30 Propranolol HCl (Inderal Iv) 2 mg BID IV Last administered on 02/02/17 09:18 ; Admin Dose 2 MG; Start 02/01/17 at 17:00 Dantrolene Sodium (Dantrium) 25 mg TID PO Last administered on 02/02/17 09:16 ; Admin Dose 25 MG; Start 02/01/17 at 18:00 Bromocriptine Mesylate (Parlodel) 2.5 mg TID PO Last administered on 09:17; Admin Dose 2.5 MG; Start 02/01/17 at 21:00 Amantadine HCl 200 mg 200 mg BID GTB Last administered on 02/02/17 09:17; Admin Dose 200 MG; Start 02/01/17 at 18:00 Fentanyl (Sublimaze) 100 ml @ 2.5 mls/hr TITRATE IV Last administered on 02/02 06:21; Admin Dose 0.7 MLS/HR; Start 02/01/17 at 18:00 Assessment/Plan Chief Complaint/Hosp Course IMP: 1. 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 Acute Lung Injury/ARDS 3. History of drug overdose 4. 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 Possible neuroleptic malignant syndrome. 5. ALEX 6. Anemia 7. Required ongoing sedation with Ativan, fentanyl and Seroquel. DC propofol if tolerated RECS: 1. Status post tracheostomy and PEG. 2. Continue current vent settings for now 3. Tube feeds/Free H20 4. Minimize sedatives as tolerated 5. Continue antipsychotics Appreciate pain management recommendations agree with trial of therapy for NMS. Problems: BRIANNA SAAVEDRA MD, [facility] Feb 02, 2017 10:11
--- NOTE | 2017-02-02 10:17 | RADRPT ---
PROCEDURE: XR Chest. CLINICAL INDICATION: Shortness of breath. TECHNIQUE: Single frontal view. COMPARISON: 01/25/2017. FINDINGS: The endotracheal tube has been replaced with a tracheostomy tube. There is a right arm PICC line wit h the tip in the medial right subclavian vein. The nasogastric tube has been removed. There is mild atelectasis at the lung bases. The lungs are otherwise clear. The heart size is normal. There is no pleural effusion. There is no pneumothorax. IMPRESSION: 1. Endotracheal tube replaced with a tracheostomy tube. 2. Right arm PICC line has been retracted with the tip now in the medial right subclavian vein. 3. Nasogastric tube removed. 4. Mild atelectasis at the lung bases. 5. Otherwise unremarkable chest radiograph. RPTAT: QQ .Jerry Arellano MD, MD Date Time Electronically viewed and signed by .Jerry Arellano MD, on 02/02/2017 10:16 .R/
[2017-02-02 14:05] LABS: ADD UMIC YES; UR ASCORBIC ACID NEGATIVE (NEGATIVE); UR BACTERIA FEW /HPF (NONE SEEN); UR BILIRUBIN (Dip) NEGATIVE (NEGATIVE); UR BLOOD (Dip) 1+ mg/dL (NEGATIVE); UR CLARITY CLEAR (CLEAR); UR COLOR YELLOW (YELLOW); UR GLUCOSE (Dip) NEGATIVE (NEGATIVE); UR KETONES (Dip) NEGATIVE (NEGATIVE); UR LEUKOCYTE ESTERASE (Dip) NEGATIVE Leu/ul (NEGATIVE); UR MUCUS FEW /HPF (NONE SEEN); UR NITRITE (Dip) NEGATIVE (NEGATIVE); UR RBC 21 /HPF (0-5); UR SPECIFIC GRAVITY (Dip) 1.015 (1.003-1.030); UR TOTAL PROTEIN (Dip) NEGATIVE (NEGATIVE); UR UROBILINOGEN (Dip) 2+ mg/dL (NEGATIVE)
--- NOTE | 2017-02-02 17:04 | PN ---
Date/Time of Note Date/Time of Note DATE: 02/02/17 TIME: 17:04 Assessment/Plan Lines/Catheters IV Catheter Type (from Nrsg): PICC Line Lewis in Place (from Nrsg): Yes Assessment/Plan Chief Complaint/Hosp Course IMPRESSION: Respiratory failure. SP tracheostomy. tomorrow. continue vent support Discussed with the nursing staff. Problems: Subjective 24 Hr Interval Summary Constitutional: improved Pain Control: mild Exam/Review of Systems Vital Signs Vitals Vital Signs Date Time Temp Pulse Resp B/P Pulse Ox O2 Delivery O2 Flow Rate FiO2 02/02/17 16:53 111 34 100 30 02/02/17 12:00 100/68 Mechanical Ventilator 02/02/17 08:00 101.3 Intake and Output 02/01/17 02/01/17 02/02/17 15:00 23:00 07:00 Intake Total 1619.905 ml 1444.368 ml 833.592 ml Output Total 1410 ml 1590 ml 750 ml Balance 209.905 ml -145.632 ml 83.592 ml Exam Neck: non-tender, supple Respiratory: clear to auscultation, normal air movement Cardiovascular: nl pulses, regular rate and rhythm Gastrointestinal: nl liver, spleen, non-tender, soft Results Result Diagram: 02/02/17 0500 02/02/17 0500 JOSE GUAJARDO MD Feb 02, 2017 17:04
[2017-02-02] MEDS: DEXTROSE 5%-0.45% NACL 1,000 ML IV SCH (17:25)
[2017-02-03] VITALS (39 sets, daily range): BP systolic 93–173; BP diastolic 59–121; PULSE 93–122; RESP 14–44
[2017-02-03] MEDS: PROPOFOL 100 ML IV SCH ×2 (00:07→05:57)
[2017-02-03] MEDS: QUETIAPINE 100 MG TAB NGT SCH ×5 (00:24→23:02)
[2017-02-03] MEDS: IPRATROPIUM (HFA) 12.9 GM INHALER INH SCH ×4 (01:10→21:00)
[2017-02-03] MEDS: ALBUTEROL HFA 8 GM INHALER INH SCH ×4 (01:10→21:01)
[2017-02-03] MEDS: LORAZEPAM (MDV) 100 MG in DEXTROSE 5% 50 ML IV SCH ×2 (02:44→15:50)
[2017-02-03 05:11] LABS: BASOPHIL # 0.1 10^3/ul (0.0-0.1); BASOPHILS % 0.5 % (0.0-2.0); EOSINOPHILS # 0.4 10^3/ul (0.0-0.5); EOSINOPHILS % 2.8 % (0.0-7.0); HEMATOCRIT 25.6 % (42.0-52.0); HEMOGLOBIN 8.2 g/dl (14.0-18.0); LYMPHOCYTES # 1.2 10^3/ul (0.8-2.9); MEAN CORPUSCULAR HEMOGLOBIN 28.4 pg (29.0-33.0); MEAN CORPUSCULAR VOLUME 88.6 fl (82.0-101.0); MEAN PLATELET VOLUME 12.8 fl (7.4-10.4); MONOCYTES % 7.8 % (0.0-11.0); NEUTROPHIL # 10.1 10^3/ul (1.6-7.5); NEUTROPHILS % 79.2 % (39.0-77.0); PLATELET COUNT 230 10^3/UL (140-415); RED BLOOD COUNT 2.89 10^6/ul (4.70-6.10); RED CELL DISTRIBUTION WIDTH 14.2 % (11.5-14.5); WHITE BLOOD COUNT 12.7 10^3/ul (4.8-10.8)
[2017-02-03 05:38] LABS: CALCIUM 8.4 mg/dl (8.4-10.2); CREATININE 0.67 mg/dl (0.61-1.24); POTASSIUM 3.7 mmol/L (3.5-5.1)
[2017-02-03] MEDS: DEXTROSE 5%-0.45% NACL 1,000 ML IV SCH ×2 (05:57→15:39)
[2017-02-03] MEDS: LANSOPRAZOLE 30 MG CAP NGT SCH ×2 (05:57→17:01)
[2017-02-03 07:07] LABS: MAGNESIUM 2.1 mg/dl (1.7-2.5); PHOSPHORUS 4.5 mg/dl (2.5-4.9)
[2017-02-03] MEDS: DOCUSATE SODIUM 10 MG/ML (10ML CUP) NGT SCH ×2 (07:54→20:07)
[2017-02-03] MEDS: POLYETHYLENE GLYCOL 17 GM PACKET NGT SCH (07:54)
[2017-02-03] MEDS: DANTROLENE 25 MG CAP PO SCH ×3 (07:54→20:07)
[2017-02-03] MEDS: BROMOCRIPTINE 2.5 MG TAB PO SCH ×3 (07:54→20:07)
[2017-02-03] MEDS: carBAMAZepine SUSP 20 MG/ML POSYG NGT SCH ×2 (07:56→20:07)
[2017-02-03] MEDS: AMANTADINE 100 MG/10 ML POSYR GTB SCH ×2 (07:56→20:07)
[2017-02-03] MEDS: PROPRANOLOL 1 MG INJ IV SCH ×2 (07:57→21:00)
--- NOTE | 2017-02-03 09:31 | CONS ---
Date/Time of Note Date/Time of Note DATE: 02/03/17 TIME: 09:24 Assessment/Plan Assessment/Plan Additional Assessment/Plan Off dipro, fentanyl most centrally acting medications... if this is NMS mental status may not return to baseline for 2 weeks.... will continue to taper off more psychotropics... Consultation Date/Type/Reason Admit Date/Time Dec 31, 2016 at 00:30 Initial Consult Date 01/17/17 Type of Consultation: pain management Referring Provider: JEAN MARIE BRAGG MD Exam/Review of Systems Vital Signs Vitals Vital Signs Date Time Temp Pulse Resp B/P Pulse Ox O2 Delivery O2 Flow Rate FiO2 02/03/17 06:00 119 29 128/94 97 02/03/17 05:09 30 02/03/17 04:00 101.4 02/02/17 20:00 Bag Valve Mask Intake and Output 02/02/17 02/02/17 02/03/17 15:00 23:00 07:00 Intake Total 1637.914 ml 1618.26 ml 1436.388 ml Output Total 605 ml 900 ml 750 ml Balance 1032.914 ml 718.26 ml 686.388 ml Exam Constitutional: non-verbal, other (altered,) Neurological: unresponsive Results Result Diagram: 02/03/17 0432 02/03/17 0432 Results 24 hrs Laboratory Tests Test 02/02/17 10:50 02/03/17 04:32 Urine Color YELLOW Urine Clarity CLEAR Urine pH 6.0 Urine Specific [place] 1.015 Urine Ketones NEGATIVE Urine Nitrite NEGATIVE Urine Bilirubin NEGATIVE Urine Urobilinogen 2+ H Urine Leukocyte Esterase NEGATIVE Urine Microscopic RBC 21 H Urine Microscopic WBC 5 Urine Bacteria FEW A Urine Mucus FEW A Urine Hemoglobin 1+ H Urine Glucose NEGATIVE Urine Total Protein NEGATIVE White Blood Count 12.7 H Red Blood Count 2.89 L Hemoglobin 8.2 L Hematocrit 25.6 L Mean Corpuscular Volume 88.6 Mean Corpuscular Hemoglobin 28.4 L Mean Corpuscular Hemoglobin Concent 32.0 Red Cell Distribution Width 14.2 Platelet Count 230 Mean Platelet Volume 12.8 H Neutrophils % 79.2 H Lymphocytes % 9.0 L Monocytes % 7.8 Eosinophils % 2.8 Basophils % 0.5 Nucleated Red Blood Cells % 0.0 Neutrophils # 10.1 H Lymphocytes # 1.2 Monocytes # 1.0 H Eosinophils # 0.4 Basophils # 0.1 Nucleated Red Blood Cells # 0.0 Sodium Level 138 Potassium Level 3.7 Chloride Level 103 Carbon Dioxide Level 28 Anion Gap 11 Blood Urea Nitrogen 10 Creatinine 0.67 Glucose Level 135 Calcium Level 8.4 Phosphorus Level 4.5 Magnesium Level 2.1 Medications Medications Current Medications Acetaminophen (Tylenol Tab) 650 mg Q4H PRN PO pain/fever Last administered on 01/29/17 21:01; Admin Dose 650 MG; Start 12/31/16 at 01:00 Hydralazine HCl (Apresoline) 25 mg Q6H PRN PO sbp>160; Start 12/31/16 at 01:00 Enalaprilat (Vasotec Iv) 1.25 mg Q6H PRN IV sbp>160; Start 12/31/16 at 01:00 Ondansetron HCl (Zofran Inj) 4 mg Q4H PRN IV nausea; Start 12/31/16 at 01:00 Hydralazine HCl (Apresoline) 10 mg Q4H PRN IV ELEVATED SYSTOLIC BP Last administered on 02/01/17 22:10; Admin Dose 10 MG; Start 12/31/16 at 05:30 IV Flush (NS 10 ml) 10 ml PRN PRN IV IV PROTOCOL; Start 01/02/17 at 17:00 Lorazepam 2 mg 2 mg Q2H PRN IV PRN Agitation. Last administered on 01/30/17 20:40; Admin Dose 2 MG; Start 01/04/17 at 09:00 Propofol 100 ml @ 3.537 mls/ hr Q12H IV Last administered on 02/03/17 05:57 ; Admin Dose 14.148 MLS/HR; Start 01/10/17 at 09:30 Thiamine HCl/ Dextrose (Vitamin B1/D5W) 101 ml @ 202 mls/hr DAILY IV Last administered on 02/02/17 09:12; Admin Dose 202 MLS/HR; Start 01/18/17 at 13: 30 Polyethylene Glycol (Miralax) 17 gm DAILY NGT Last administered on 02/03/17 07:54; Admin Dose 17 GM; Start 01/19/17 at 10:00 Carbamazepine 400 mg 400 mg BID NGT Last administered on 02/03/17 07:56; Admin Dose 400 MG; Start 01/22/17 at 21:00 Lorazepam/Dextrose (Ativan/D5W) 100 ml @ 0 mls/hr TITRATE IV Last administered on 02/03/17 02:44; Admin Dose 7 MLS/HR; Start 01/22/17 at 13:00 Lansoprazole (Prevacid) 30 mg BID@06,18 NGT Last administered on 02/03/17 05: 57; Admin Dose 30 MG; Start 01/24/17 at 18:00 Docusate Sodium (Colace Liquid Cup) 100 mg BID NGT Last administered on 07:54; Admin Dose 100 MG; Start 01/25/17 at 21:00 Quetiapine Fumarate 200 mg 200 mg Q6 NGT Last administered on 02/03/17 05:57 ; Admin Dose 200 MG; Start 01/27/17 at 12:00 Dextrose/Sodium Chloride (D5-1/2ns) 1,000 ml @ 75 mls/hr [id number] IV Last administered on 02/03/17 05:57; Admin Dose 75 MLS/HR; Start 01/27/17 at 09:30 Propranolol HCl (Inderal Iv) 2 mg BID IV Last administered on 02/03/17 07:57 ; Admin Dose 2 MG; Start 02/01/17 at 17:00 Dantrolene Sodium (Dantrium) 25 mg TID PO Last administered on 02/03/17 07:54 ; Admin Dose 25 MG; Start 02/01/17 at 18:00 Bromocriptine Mesylate (Parlodel) 2.5 mg TID PO Last administered on 07:54; Admin Dose 2.5 MG; Start 02/01/17 at 21:00 Amantadine HCl (Symmetrel) 200 mg BID GTB Last administered on 02/03/17 07:56 ; Admin Dose 200 MG; Start 02/01/17 at 18:00 NAZARIO LAURENT Feb 03, 2017 09:31
[2017-02-03] MEDS: DEXTROSE 5% IV SCH (09:39)
[2017-02-03] MEDS: THIAMINE IV SCH (09:39)
--- NOTE | 2017-02-03 09:48 | PN ---
Date/Time of Note Date/Time of Note DATE: 02/03/17 TIME: 09:27 Assessment/Plan VTE Prophylaxis VTE Prophylaxis Intervention: SCD's Lines/Catheters IV Catheter Type (from Nrs): PICC Line Central line still needed: Yes (For IV access) Urinary Cath still in place: Yes Reason Cath still needed: other (indicate) (Intubated) Assessment/Plan Assessment/Plan 46 yo male with: 1. Severe encephalopathy 2ry to drug abuse likely Bath salts and/or synthetic marijuana and also bipolar disorder with violent behaviors and noncompliance with medications per previous psychiatry notes. Now possibility of neuroleptic malignant syndrome raised. I appreciate recommendations from Dr. John, will continue current course of care, we can attempt to discontinue fentanyl and propofol today. Patient to remain on Ativan. CT head 2 since admission are both wnl, EEG x2 showing encephalopathy, MRI brain wnl. S/p Tracheostomy POD#6 and PEG tube placement POD#7 On Ativan drip and also Inderal, bromocriptine, amantadine, dantrolene, propanolol. Continue IV thiamine. 2. Acute respiratory Failure 2ry to severe Encephalopathy from Drug overuse, intubated, sedated and paralysed. Patient was briefly extubated last week for 2 -1/2 hours but had to be reintubated due to inability to protect his airway, of note he was still on sedating agents. WBC within normal now and chest x-ray has been better but with compressive atelectasis. Still on FiO2 of 30% and PEEP of 7. Status post tracheostomy On Ativan gtt. On Seroquel and Tegretol. Depakote, trazodone, Haldol discontinued. 3. Bipolar disorder: Likely noncompliant with psychiatric medications. Medication resumed and adjusted to outpatient dosing based on the note from psychiatry 5 days prior to admission that were able to obtain last Wednesday, patient Seroquel can even be titrated higher, according to the notes he was on Seroquel XR, increased to 1000 mg nightly per the latest note. Now on Seroquel to 200 mg QID. Carbamazepine to 400 mg twice daily. Continue on Ativan drip. Again per the girlfriend it is very likely that the patient was not fully compliant. Also talked to Joel yesterday, very familiar with this patient at the [facility], patient again runs manic and is always agitated at baseline this is despite the multiple medications he has been prescribed as an outpatient, unclear if just difficult to control versus noncompliant. Joel will contact the patient's primary psychiatrist and get back to us with further recommendations if any, for now he does not see any changes that would be made. 4. Right foot Lisfranc fracture: Pain control and ? splint 5. Anemia: Hemoglobin stable at approx 8.2, status post 1 unit pRBC on 01/15. SCDs to lower extremities. Continue proton pump inhibitors. Monitor tolerance of tube feedings off Reglan. 6. Fevers: Over the past 24 hours, WBC elevated with a slightly left shift, patient has been charles cultured. Follow-up urine analysis and sputum Gram stain, start antibiotics sustained fevers. Prophylaxis: SCDs for DVT prophylaxis, Protonix for GI prophylaxis Disposition: Still in ICU, S/p PEG tube and Tracheostomy, so far unable to weaning off sedation or vent. Family meeting 01/14 did confirm that patient is noncompliant with medication, unfortunately he does have significant behavioral issues including violent behavior. He is a bipolar that seems to be mostly manic most of the time and noncompliant with medications at all. Drug use is an issue. We will await further recommendations from the patient's primary psychiatrist, he is supposed to call me back. I have discussed the patient's current clinical status and need for psychiatric assistance with Joel at the [facility] (# [phone]) Appreciate recommendations from Dr. John, medication changes effective as of this morning, will monitor for clinical improvement hopefully. Hopefully, he will be calmer and will be able to wean him off the IV drips/ sedating agents for subacute disposition. Jayda, the patient's 1/2 sister has made us understand that she will not be involved in the primary caregiving of patient and he will need to be placed at the time of discharge no matter what his condition. Subjective 24 Hr Interval Summary Free Text/Dictation Attempting to discontinue all sedating agents, patient currently on low-dose Ativan. Going to monitor throughout the day response. Patient febrile again to 101.8, WBC up to 12 K. Already pancultured, while awaiting culture will start antibiotics to cover for possible tracheobronchitis , chest x-ray is clear. Exam/Review of Systems Vital Signs Vitals Vital Signs Date Time Temp Pulse Resp B/P Pulse Ox O2 Delivery O2 Flow Rate FiO2 02/03/17 06:00 119 29 128/94 97 02/03/17 05:09 30 02/03/17 04:00 101.4 02/02/17 20:00 Bag Valve Mask Intake and Output 02/02/17 02/02/17 02/03/17 15:00 23:00 07:00 Intake Total 1637.914 ml 1618.26 ml 1436.388 ml Output Total 605 ml 900 ml 750 ml Balance 1032.914 ml 718.26 ml 686.388 ml Exam Constitutional: other (Still encephalopathic, on and off agitated) Respiratory: clear to auscultation, other (On mechanical ventilation) Cardiovascular: nl pulses, regular rate and rhythm Gastrointestinal: non-tender, other (Tolerating tube feeding), soft Musculoskeletal: nl extremities to inspection Extremities: normal pulses, other (No edema, clubbing or cyanosis) Neurological: OCULAR CARE AIDE II-XII intact, nl mental status, nl speech, nl strength Results Result Diagram: 02/03/1743102/03/17 043 Results 24 hrs Laboratory Tests Test 02/02/17 10:50 02/03/17 04:32 Urine Color YELLOW Urine Clarity CLEAR Urine pH 6.0 Urine Specific [place] 1.015 Urine Ketones NEGATIVE Urine Nitrite NEGATIVE Urine Bilirubin NEGATIVE Urine Urobilinogen 2+ H Urine Leukocyte Esterase NEGATIVE Urine Microscopic RBC 21 H Urine Microscopic WBC 5 Urine Bacteria FEW A Urine Mucus FEW A Urine Hemoglobin 1+ H Urine Glucose NEGATIVE Urine Total Protein NEGATIVE White Blood Count 12.7 H Red Blood Count 2.89 L Hemoglobin 8.2 L Hematocrit 25.6 L Mean Corpuscular Volume 88.6 Mean Corpuscular Hemoglobin 28.4 L Mean Corpuscular Hemoglobin Concent 32.0 Red Cell Distribution Width 14.2 Platelet Count 230 Mean Platelet Volume 12.8 H Neutrophils % 79.2 H Lymphocytes % 9.0 L Monocytes % 7.8 Eosinophils % 2.8 Basophils % 0.5 Nucleated Red Blood Cells % 0.0 Neutrophils # 10.1 H Lymphocytes # 1.2 Monocytes # 1.0 H Eosinophils # 0.4 Basophils # 0.1 Nucleated Red Blood Cells # 0.0 Sodium Level 138 Potassium Level 3.7 Chloride Level 103 Carbon Dioxide Level 28 Anion Gap 11 Blood Urea Nitrogen 10 Creatinine 0.67 Glucose Level 135 Calcium Level 8.4 Phosphorus Level 4.5 Magnesium Level 2.1 Medications Medications Current Medications Acetaminophen (Tylenol Tab) 650 mg Q4H PRN PO pain/fever Last administered on 01/29/17 21:01; Admin Dose 650 MG; Start 12/31/16 at 01:00 Hydralazine HCl (Apresoline) 25 mg Q6H PRN PO sbp>160; Start 12/31/16 at 01:00 Enalaprilat (Vasotec Iv) 1.25 mg Q6H PRN IV sbp>160; Start 12/31/16 at 01:00 Ondansetron HCl (Zofran Inj) 4 mg Q4H PRN IV nausea; Start 12/31/16 at 01:00 Hydralazine HCl (Apresoline) 10 mg Q4H PRN IV ELEVATED SYSTOLIC BP Last administered on 02/01/17 22:10; Admin Dose 10 MG; Start 12/31/16 at 05:30 IV Flush (NS 10 ml) 10 ml PRN PRN IV IV PROTOCOL; Start 01/02/17 at 17:00 Lorazepam 2 mg 2 mg Q2H PRN IV PRN Agitation. Last administered on 01/30/17 20:40; Admin Dose 2 MG; Start 01/04/17 at 09:00 Propofol 100 ml @ 3.537 mls/ hr Q12H IV Last administered on 02/03/17 05:57 ; Admin Dose 14.148 MLS/HR; Start 01/10/17 at 09:30 Thiamine HCl/ Dextrose (Vitamin B1/D5W) 101 ml @ 202 mls/hr DAILY IV Last administered on 02/02/17 09:12; Admin Dose 202 MLS/HR; Start 01/18/17 at 13: 30 Polyethylene Glycol (Miralax) 17 gm DAILY NGT Last administered on 02/03/17 07:54; Admin Dose 17 GM; Start 01/19/17 at 10:00 Carbamazepine 400 mg 400 mg BID NGT Last administered on 02/03/17 07:56; Admin Dose 400 MG; Start 01/22/17 at 21:00 Lorazepam/Dextrose (Ativan/D5W) 100 ml @ 0 mls/hr TITRATE IV Last administered on 02/03/17 02:44; Admin Dose 7 MLS/HR; Start 01/22/17 at 13:00 Lansoprazole (Prevacid) 30 mg BID@06,18 NGT Last administered on 02/03/17 05: 57; Admin Dose 30 MG; Start 01/24/17 at 18:00 Docusate Sodium (Colace Liquid Cup) 100 mg BID NGT Last administered on 07:54; Admin Dose 100 MG; Start 01/25/17 at 21:00 Quetiapine Fumarate 200 mg 200 mg Q6 NGT Last administered on 02/03/17 05:57 ; Admin Dose 200 MG; Start 01/27/17 at 12:00 Dextrose/Sodium Chloride (D5-1/2ns) 1,000 ml @ 75 mls/hr [id number] IV Last administered on 02/03/17 05:57; Admin Dose 75 MLS/HR; Start 01/27/17 at 09:30 Propranolol HCl (Inderal Iv) 2 mg BID IV Last administered on 02/03/17 07:57 ; Admin Dose 2 MG; Start 02/01/17 at 17:00 Dantrolene Sodium (Dantrium) 25 mg TID PO Last administered on 02/03/17 07:54 ; Admin Dose 25 MG; Start 02/01/17 at 18:00 Bromocriptine Mesylate (Parlodel) 2.5 mg TID PO Last administered on 07:54; Admin Dose 2.5 MG; Start 02/01/17 at 21:00 Amantadine HCl (Symmetrel) 200 mg BID GTB Last administered on 02/03/17 07:56 ; Admin Dose 200 MG; Start 02/01/17 at 18:00 TRENT NEWMAN Feb 03, 2017 09:38
--- NOTE | 2017-02-03 11:25 | CONS ---
Date/Time of Note Date/Time of Note DATE: 02/03/17 TIME: 11:23 Consult Date/Type/Reason Admit Date/Time Dec 31, 2016 at 00:30 Initial Consult Date 12/31/16 Type of Consultation: Pulmonary Ordering Provider: JEAN MARIE BRAGG MD Subjective Off propofol and fentanyl. Remains on mechanical ventilation via tracheostomy. Tachypnea and mild diaphoresis. Objective Vital Signs Date Time Temp Pulse Resp B/P Pulse Ox O2 Delivery O2 Flow Rate FiO2 02/03/17 09:00 108 33 135/121 100 Mechanical Ventilator 02/03/17 08:00 101.5 02/03/17 05:09 30 Intake and Output 02/02/17 02/02/17 02/03/17 14:59 22:59 06:59 Intake Total 1644.990 ml 1640.48 ml 1573.888 ml Output Total 555 ml 925 ml 850 ml Balance 1089.990 ml 715.48 ml 723.888 ml Exam GENERAL: Well-nourished well-developed gentleman tracheostomy in place VITAL SIGNS: see below. HEENT: Pupils equal, round, and reactive to light. CARDIAC: S1, S2, 1/6 systolic ejection murmur CHEST: Diminished air entry bilaterally. ABDOMEN: Mildly distended. Bowel sounds present no guarding or rebound EXTREMITIES: No cyanosis, clubbing edema +1 NEUROLOGIC: Generalized weakness Results/Medications Result Diagram: 02/03/17 0432 02/03/17 0432 Results 24 hrs Laboratory Tests Test 02/03/17 04:32 White Blood Count 12.7 H Red Blood Count 2.89 L Hemoglobin 8.2 L Hematocrit 25.6 L Mean Corpuscular Volume 88.6 Mean Corpuscular Hemoglobin 28.4 L Mean Corpuscular Hemoglobin Concent 32.0 Red Cell Distribution Width 14.2 Platelet Count 230 Mean Platelet Volume 12.8 H Neutrophils % 79.2 H Lymphocytes % 9.0 L Monocytes % 7.8 Eosinophils % 2.8 Basophils % 0.5 Nucleated Red Blood Cells % 0.0 Neutrophils # 10.1 H Lymphocytes # 1.2 Monocytes # 1.0 H Eosinophils # 0.4 Basophils # 0.1 Nucleated Red Blood Cells # 0.0 Sodium Level 138 Potassium Level 3.7 Chloride Level 103 Carbon Dioxide Level 28 Anion Gap 11 Blood Urea Nitrogen 10 Creatinine 0.67 Glucose Level 135 Calcium Level 8.4 Phosphorus Level 4.5 Magnesium Level 2.1 Medications Current Medications Acetaminophen (Tylenol Tab) 650 mg Q4H PRN PO pain/fever Last administered on 01/29/17 21:01; Admin Dose 650 MG; Start 12/31/16 at 01:00 Hydralazine HCl (Apresoline) 25 mg Q6H PRN PO sbp>160; Start 12/31/16 at 01:00 Enalaprilat (Vasotec Iv) 1.25 mg Q6H PRN IV sbp>160; Start 12/31/16 at 01:00 Ondansetron HCl (Zofran Inj) 4 mg Q4H PRN IV nausea; Start 12/31/16 at 01:00 Hydralazine HCl (Apresoline) 10 mg Q4H PRN IV ELEVATED SYSTOLIC BP Last administered on 02/01/17 22:10; Admin Dose 10 MG; Start 12/31/16 at 05:30 IV Flush (NS 10 ml) 10 ml PRN PRN IV IV PROTOCOL; Start 01/02/17 at 17:00 Lorazepam 2 mg 2 mg Q2H PRN IV PRN Agitation. Last administered on 01/30/17 20:40; Admin Dose 2 MG; Start 01/04/17 at 09:00 Propofol 100 ml @ 3.537 mls/ hr Q12H IV Last administered on 02/03/17 05:57 ; Admin Dose 14.148 MLS/HR; Start 01/10/17 at 09:30 Thiamine HCl/ Dextrose (Vitamin B1/D5W) 101 ml @ 202 mls/hr DAILY IV Last administered on 02/03/17 09:39; Admin Dose 202 MLS/HR; Start 01/18/17 at 13: 30 Polyethylene Glycol (Miralax) 17 gm DAILY NGT Last administered on 02/03/17 07:54; Admin Dose 17 GM; Start 01/19/17 at 10:00 Carbamazepine 400 mg 400 mg BID NGT Last administered on 02/03/17 07:56; Admin Dose 400 MG; Start 01/22/17 at 21:00 Lorazepam/Dextrose (Ativan/D5W) 100 ml @ 0 mls/hr TITRATE IV Last administered on 02/03/17 02:44; Admin Dose 7 MLS/HR; Start 01/22/17 at 13:00 Lansoprazole (Prevacid) 30 mg BID@06,18 NGT Last administered on 02/03/17 05: 57; Admin Dose 30 MG; Start 01/24/17 at 18:00 Docusate Sodium (Colace Liquid Cup) 100 mg BID NGT Last administered on 07:54; Admin Dose 100 MG; Start 01/25/17 at 21:00 Quetiapine Fumarate 200 mg 200 mg Q6 NGT Last administered on 02/03/17 11:06 ; Admin Dose 200 MG; Start 01/27/17 at 12:00 Dextrose/Sodium Chloride (D5-1/2ns) 1,000 ml @ 75 mls/hr [id number] IV Last administered on 02/03/17 05:57; Admin Dose 75 MLS/HR; Start 01/27/17 at 09:30 Propranolol HCl (Inderal Iv) 2 mg BID IV Last administered on 02/03/17 07:57 ; Admin Dose 2 MG; Start 02/01/17 at 17:00 Dantrolene Sodium (Dantrium) 25 mg TID PO Last administered on 02/03/17 11:06 ; Admin Dose 25 MG; Start 02/01/17 at 18:00 Bromocriptine Mesylate (Parlodel) 2.5 mg TID PO Last administered on 11:06; Admin Dose 2.5 MG; Start 02/01/17 at 21:00 Amantadine HCl 200 mg 200 mg BID GTB Last administered on 02/03/17 07:56; Admin Dose 200 MG; Start 02/01/17 at 18:00 Piperacillin Sod/ Tazobactam Sod (Zosyn 3.375gm/ 50 ml (Pmx)) 50 ml @ 100 mls/ hr Q8 IVPB ; Start 02/03/17 at 12:00 Assessment/Plan Chief Complaint/Hosp Course IMP: 1. 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 Acute Lung Injury/ARDS 3. History of drug overdose 4. 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 Possible neuroleptic malignant syndrome. 5. ALEX 6. Anemia 7. Continuing problems requiring sedation. Agree with pain management recommendations. RECS: 1. Status post tracheostomy and PEG. 2. Continue current vent settings for now 3. Tube feeds/Free H20 4. Minimize sedatives as tolerated 5. Continue antipsychotics continues treatment for NMS Problems: BRIANNA SAAVEDRA MD, [facility] Feb 03, 2017 11:25
[2017-02-03] MEDS: PIPER-TAZO 3.375 GM IV (PMX) 50 ML IVPB SCH ×2 (12:06→21:29)
--- NOTE | 2017-02-03 13:49 | PN ---
Date/Time of Note Date/Time of Note DATE: 02/03/17 TIME: 13:49 Assessment/Plan Lines/Catheters IV Catheter Type (from Nrsg): PICC Line Lewis in Place (from Nrsg): Yes Assessment/Plan Chief Complaint/Hosp Course IMPRESSION: Respiratory failure. SP tracheostomy. tomorrow. continue vent support Discussed with the nursing staff. Problems: Subjective 24 Hr Interval Summary Constitutional: improved Pain Control: mild Exam/Review of Systems Vital Signs Vitals Vital Signs Date Time Temp Pulse Resp B/P Pulse Ox O2 Delivery O2 Flow Rate FiO2 02/03/17 11:58 99.9 02/03/17 11:30 117 29 154/82 100 Mechanical Ventilator 02/03/17 11:25 30 Intake and Output 02/02/17 02/02/17 02/03/17 15:00 23:00 07:00 Intake Total 1637.914 ml 1618.26 ml 1486.388 ml Output Total 605 ml 900 ml 900 ml Balance 1032.914 ml 718.26 ml 586.388 ml Exam ENMT: mucosa pink and moist, nl external ears & nose, nl lips & teeth, nl nasal mucosa & septum Neck: non-tender, supple Respiratory: clear to auscultation, normal air movement Cardiovascular: nl pulses, regular rate and rhythm Results Result Diagram: 02/03/172 02/03/17431 JOSE GUAJARDO MD Feb 03, 2017 13:49
[2017-02-04] VITALS (36 sets, daily range): BP systolic 95–126; BP diastolic 58–85; PULSE 82–107; RESP 18–34
[2017-02-04] MEDS: ALBUTEROL HFA 8 GM INHALER INH SCH ×4 (01:33→19:26)
[2017-02-04] MEDS: IPRATROPIUM (HFA) 12.9 GM INHALER INH SCH ×4 (01:34→19:26)
[2017-02-04] MEDS: DEXTROSE 5%-0.45% NACL 1,000 ML IV SCH ×2 (04:25→17:35)
[2017-02-04 05:23] LABS: BASOPHIL # 0.1 10^3/ul (0.0-0.1); BASOPHILS % 0.5 % (0.0-2.0); EOSINOPHILS # 0.3 10^3/ul (0.0-0.5); EOSINOPHILS % 2.6 % (0.0-7.0); HEMATOCRIT 25.3 % (42.0-52.0); HEMOGLOBIN 8.1 g/dl (14.0-18.0); LYMPHOCYTES # 0.9 10^3/ul (0.8-2.9); LYMPHOCYTES % 9.5 % (15.0-51.0); MEAN CORPUSCULAR HEMOGLOBIN 28.4 pg (29.0-33.0); MEAN CORPUSCULAR VOLUME 88.8 fl (82.0-101.0); MEAN PLATELET VOLUME 12.6 fl (7.4-10.4); MONOCYTE # 0.9 10^3/ul (0.3-0.9); NEUTROPHIL # 7.5 10^3/ul (1.6-7.5); NEUTROPHILS % 77.8 % (39.0-77.0); PLATELET COUNT 257 10^3/UL (140-415); RED BLOOD COUNT 2.85 10^6/ul (4.70-6.10); RED CELL DISTRIBUTION WIDTH 14.1 % (11.5-14.5); WHITE BLOOD COUNT 9.7 10^3/ul (4.8-10.8)
[2017-02-04] MEDS: LANSOPRAZOLE 30 MG CAP NGT SCH ×2 (05:35→17:35)
[2017-02-04] MEDS: PIPER-TAZO 3.375 GM IV (PMX) 50 ML IVPB SCH (05:35)
[2017-02-04] MEDS: QUETIAPINE 100 MG TAB NGT SCH ×3 (05:35→17:35)
[2017-02-04 05:50] LABS: MAGNESIUM 2.3 mg/dl (1.7-2.5); PHOSPHORUS 5.5 mg/dl (2.5-4.9)
[2017-02-04 05:53] LABS: ALBUMIN 3.3 g/dl (3.3-4.9); ALBUMIN/GLOBULIN RATIO 0.94; BILIRUBIN,INDIRECT 0.2 mg/dl (0-1.1); BILIRUBIN,TOTAL 0.2 mg/dl (0.2-1.3); CALCIUM 8.5 mg/dl (8.4-10.2); CREATININE 0.71 mg/dl (0.61-1.24); POTASSIUM 3.2 mmol/L (3.5-5.1); TOTAL PROTEIN 6.8 g/dl (6.1-8.1)
[2017-02-04] MEDS: POTASSIUM CHLORIDE 50 ML IVPB PRN ×3 (06:53→09:12)
[2017-02-04] MEDS: PROPOFOL 100 ML IV SCH (07:34)
[2017-02-04] MEDS: AMANTADINE 100 MG/10 ML POSYR GTB SCH ×2 (08:11→21:52)
[2017-02-04] MEDS: DOCUSATE SODIUM 10 MG/ML (10ML CUP) NGT SCH ×2 (08:11→21:51)
[2017-02-04] MEDS: POLYETHYLENE GLYCOL 17 GM PACKET NGT SCH (08:11)
[2017-02-04] MEDS: BROMOCRIPTINE 2.5 MG TAB PO SCH ×3 (08:12→21:52)
[2017-02-04] MEDS: carBAMAZepine SUSP 20 MG/ML POSYG NGT SCH ×2 (08:12→21:58)
[2017-02-04] MEDS: DANTROLENE 25 MG CAP PO SCH ×3 (08:12→21:51)
[2017-02-04] MEDS: PROPRANOLOL 1 MG INJ IV SCH ×2 (09:00→21:58)
[2017-02-04] MEDS ORDERED: POTASSIUM CHLORIDE 20 MEQ POWDER FOR ORAL SOLN PO ONE (09:30)
--- NOTE | 2017-02-04 09:40 | PN ---
Date/Time of Note Date/Time of Note DATE: 02/04/17 TIME: 09:26 Assessment/Plan VTE Prophylaxis VTE Prophylaxis Intervention: SCD's Lines/Catheters IV Catheter Type (from Nrs): PICC Line Central line still needed: Yes (IV access) Urinary Cath still in place: Yes Reason Cath still needed: other (indicate) (While intubated and sedated) Assessment/Plan Assessment/Plan 46 yo male with: 1. Severe encephalopathy 2ry to drug abuse likely Bath salts and/or synthetic marijuana and also bipolar disorder with violent behaviors and noncompliance with medications per previous psychiatry notes. Now possibility of neuroleptic malignant syndrome secondary to medication interactions. I appreciate recommendations from Dr. John, will continue current course of care, Fentanyl and propofol discontinued yesterday, patient calm this morning, off Ativan drip as of 3 AM. He remains calm currently. CT head 2 since admission are both wnl, EEG x2 showing encephalopathy, MRI brain wnl. S/p Tracheostomy and PEG tube placement On Inderal, bromocriptine, amantadine, dantrolene, propanolol. On Seroquel and Tegretol Change thiamine to p.o. 2. Acute respiratory Failure 2ry to severe Encephalopathy from Drug overuse, intubated, sedated and paralysed. Patient was briefly extubated last week for 2 -1/2 hours but had to be reintubated due to inability to protect his airway, of note he was still on sedating agents. WBC within normal now and chest x-ray has been better but with compressive atelectasis. Still on FiO2 of 30% and PEEP of 7. Status post tracheostomy On Seroquel and Tegretol. 3. Bipolar disorder: Likely noncompliant with psychiatric medications. Medication resumed and adjusted to outpatient dosing based on the note from psychiatry 5 days prior to admission that were able to obtain last Wednesday, patient Seroquel can even be titrated higher, according to the notes he was on Seroquel XR, increased to 1000 mg nightly per the latest note. On Seroquel 200 mg QID. Carbamazepine to 400 mg twice daily. Off Ativan drip. Again per the girlfriend it is very likely that the patient was not fully compliant. Also talked to Joel yesterday, very familiar with this patient at the [facility], patient again runs manic and is always agitated at baseline this is despite the multiple medications he has been prescribed as an outpatient, unclear if just difficult to control versus noncompliant. Joel will contact the patient's primary psychiatrist and get back to us with further recommendations if any, for now he does not see any changes that would be made. 4. Right foot Lisfranc fracture: Pain control and ? splint 5. Anemia: Hemoglobin stable at approx 8.2, status post 1 unit pRBC on 01/15. SCDs to lower extremities. Continue proton pump inhibitors. Monitor tolerance of tube feedings off Reglan. 6. Fevers: Over the past 48 hours, sputum culture with multiple organisms including Staphylococcus aureus MSSA, Klebsiella pneumoniae, Enterobacter cloacae. He has been on Zosyn over the past 24 hours, now afebrile, based on sensitivities, I will switch his antibiotics to Levaquin to cover the respiratory pathogens. But also urine culture back with MDR Klebsiella pneumoniae, intermediate sensitivities to amikacin, will put on amikacin per pharmacy dosing. We will repeat UA and urine culture Change Lewis catheter Contact isolation Prophylaxis: SCDs for DVT prophylaxis, Protonix for GI prophylaxis Disposition: Still in ICU, S/p PEG tube and Tracheostomy, so far unable to weaning off sedation or vent. Family meeting 01/14 did confirm that patient is noncompliant with medication, unfortunately he does have significant behavioral issues including violent behavior. He is a bipolar that seems to be mostly manic most of the time and noncompliant with medications at all. Drug use is an issue. We will await further recommendations from the patient's primary psychiatrist, he is supposed to call me back. I have discussed the patient's current clinical status and need for psychiatric assistance with Joel at the [facility] (# [phone]) Appreciate recommendations from Dr. John, medication changes effective as of this morning, will monitor for clinical improvement hopefully. Hopefully, he will be calmer and will be able to wean him off the IV drips/ sedating agents for subacute disposition. Jayda, the patient's 1/2 sister has made us understand that she will not be involved in the primary caregiving of patient and he will need to be placed at the time of discharge no matter what his condition. Subjective 24 Hr Interval Summary Free Text/Dictation Patient much calmer this morning, has been off fentanyl and propofol for 24 hours, Ativan has been discontinued as of 3 AM this morning. So far patient remains calmer. Urine culture back with multidrug resistant Klebsiella. Exam/Review of Systems Vital Signs Vitals Vital Signs Date Time Temp Pulse Resp B/P Pulse Ox O2 Delivery O2 Flow Rate FiO2 02/04/17 08:00 98.7 02/04/17 06:00 86 27 107/71 99 Mechanical Ventilator 02/04/17 05:32 25 Intake and Output 02/03/17 02/03/17 02/04/17 15:00 23:00 07:00 Intake Total 937 ml 858 ml 1073 ml Output Total 815 ml 600 ml 310 ml Balance 122 ml 258 ml 763 ml Exam Constitutional: other (Lethargic) Respiratory: clear to auscultation, normal air movement Cardiovascular: nl pulses, regular rate and rhythm Musculoskeletal: nl extremities to inspection Extremities: normal pulses, other (No edema, clubbing or cyanosis) Neurological: lethargic Results Result Diagram: 02/04/17 0430 02/04/17 0430 Results 24 hrs Laboratory Tests Test 02/03/17 10:52 02/04/17 04:30 Creatine Kinase 224 H White Blood Count 9.7 # Red Blood Count 2.85 L Hemoglobin 8.1 L Hematocrit 25.3 L Mean Corpuscular Volume 88.8 Mean Corpuscular Hemoglobin 28.4 L Mean Corpuscular Hemoglobin Concent 32.0 Red Cell Distribution Width 14.1 Platelet Count 257 Mean Platelet Volume 12.6 H Neutrophils % 77.8 H Lymphocytes % 9.5 L Monocytes % 9.0 Eosinophils % 2.6 Basophils % 0.5 Nucleated Red Blood Cells % 0.0 Neutrophils # 7.5 Lymphocytes # 0.9 Monocytes # 0.9 Eosinophils # 0.3 Basophils # 0.1 Nucleated Red Blood Cells # 0.0 Sodium Level 145 H Potassium Level 3.2 L Chloride Level 107 Carbon Dioxide Level 26 Anion Gap 15 Blood Urea Nitrogen 13 Creatinine 0.71 Glucose Level 110 Calcium Level 8.5 Phosphorus Level 5.5 H Magnesium Level 2.3 Total Bilirubin 0.2 Direct Bilirubin 0.00 Indirect Bilirubin 0.2 Aspartate Amino Transf (AST/SGOT) 64 H Alanine Aminotransferase (ALT/SGPT) 51 Alkaline Phosphatase 230 H Total Protein 6.8 Albumin 3.3 Globulin 3.50 H Albumin/Globulin Ratio 0.94 Medications Medications Current Medications Acetaminophen (Tylenol Tab) 650 mg Q4H PRN PO pain/fever Last administered on 01/29/17 21:01; Admin Dose 650 MG; Start 12/31/16 at 01:00 Hydralazine HCl (Apresoline) 25 mg Q6H PRN PO sbp>160; Start 12/31/16 at 01:00 Enalaprilat (Vasotec Iv) 1.25 mg Q6H PRN IV sbp>160; Start 12/31/16 at 01:00 Ondansetron HCl (Zofran Inj) 4 mg Q4H PRN IV nausea; Start 12/31/16 at 01:00 Hydralazine HCl (Apresoline) 10 mg Q4H PRN IV ELEVATED SYSTOLIC BP Last administered on 02/01/17 22:10; Admin Dose 10 MG; Start 12/31/16 at 05:30 IV Flush (NS 10 ml) 10 ml PRN PRN IV IV PROTOCOL; Start 01/02/17 at 17:00 Lorazepam (Ativan) 2 mg Q2H PRN IV PRN Agitation. Last administered on 20:40; Admin Dose 2 MG; Start 01/04/17 at 09:00 Polyethylene Glycol (Miralax) 17 gm DAILY NGT Last administered on 02/04/17 08:11; Admin Dose 17 GM; Start 01/19/17 at 10:00 Carbamazepine (Tegretol Susp (Ped)) 400 mg BID NGT Last administered on 08:12; Admin Dose 400 MG; Start 01/22/17 at 21:00 Lansoprazole (Prevacid) 30 mg BID@06,18 NGT Last administered on 02/04/17 05: 35; Admin Dose 30 MG; Start 01/24/17 at 18:00 Docusate Sodium (Colace Liquid Cup) 100 mg BID NGT Last administered on 08:11; Admin Dose 100 MG; Start 01/25/17 at 21:00 Quetiapine Fumarate 200 mg 200 mg Q6 NGT Last administered on 02/04/17 05:35 ; Admin Dose 200 MG; Start 01/27/17 at 12:00 Dextrose/Sodium Chloride (D5-1/2ns) 1,000 ml @ 75 mls/hr [id number] IV Last administered on 02/04/17 04:25; Admin Dose 75 MLS/HR; Start 01/27/17 at 09:30 Propranolol HCl (Inderal Iv) 2 mg BID IV Last administered on 02/03/17 07:57 ; Admin Dose 2 MG; Start 02/01/17 at 17:00 Dantrolene Sodium (Dantrium) 25 mg TID PO Last administered on 02/04/17 08:12 ; Admin Dose 25 MG; Start 02/01/17 at 18:00 Bromocriptine Mesylate (Parlodel) 2.5 mg TID PO Last administered on 08:12; Admin Dose 2.5 MG; Start 02/01/17 at 21:00 Amantadine HCl 200 mg 200 mg BID GTB Last administered on 02/04/17 08:11; Admin Dose 200 MG; Start 02/01/17 at 18:00 Piperacillin Sod/ Tazobactam Sod 50 ml @ 100 mls/hr Q8 IVPB Last administered on 02/04/17 05:35; Admin Dose 100 MLS/HR; Start 02/03/17 at 12:00 Thiamine HCl/ Dextrose (Vitamin B1/D5W) 101 ml @ 202 mls/hr DAILY IV ; Start 02/05/17 at 09:00 TRENT NEWMAN Feb 04, 2017 09:38
[2017-02-04] MEDS ORDERED: AMIKACIN IV PER PHARMACY XX SCH (10:00)
--- NOTE | 2017-02-04 11:33 | CONS ---
Date/Time of Note Date/Time of Note DATE: 02/04/17 TIME: 11:32 Consult Date/Type/Reason Admit Date/Time Dec 31, 2016 at 00:30 Initial Consult Date 12/31/16 Type of Consultation: Pulmonary Ordering Provider: JEAN MARIE BRAGG MD Subjective Off all drips. Remains comfortable. No diaphoresis or agitation. Objective Vital Signs Date Time Temp Pulse Resp B/P Pulse Ox O2 Delivery O2 Flow Rate FiO2 02/04/17 09:20 88 25 98 30 02/04/17 08:00 98.7 02/04/17 06:00 107/71 Mechanical Ventilator Intake and Output 02/03/17 02/03/17 02/04/17 14:59 22:59 06:59 Intake Total 940 ml 898 ml 1162 ml Output Total 820 ml 675 ml 380 ml Balance 120 ml 223 ml 782 ml Exam GENERAL: Well-nourished well-developed gentleman tracheostomy in place VITAL SIGNS: see below. HEENT: Pupils equal, round, and reactive to light. CARDIAC: S1, S2, 1/6 systolic ejection murmur CHEST: Diminished air entry bilaterally. ABDOMEN: Mildly distended. Bowel sounds present no guarding or rebound EXTREMITIES: No cyanosis, clubbing edema +1 NEUROLOGIC: Generalized weakness Results/Medications Result Diagram: 02/04/17 0430 02/04/17 0430 Results 24 hrs Laboratory Tests Test 02/04/17 04:30 White Blood Count 9.7 # Red Blood Count 2.85 L Hemoglobin 8.1 L Hematocrit 25.3 L Mean Corpuscular Volume 88.8 Mean Corpuscular Hemoglobin 28.4 L Mean Corpuscular Hemoglobin Concent 32.0 Red Cell Distribution Width 14.1 Platelet Count 257 Mean Platelet Volume 12.6 H Neutrophils % 77.8 H Lymphocytes % 9.5 L Monocytes % 9.0 Eosinophils % 2.6 Basophils % 0.5 Nucleated Red Blood Cells % 0.0 Neutrophils # 7.5 Lymphocytes # 0.9 Monocytes # 0.9 Eosinophils # 0.3 Basophils # 0.1 Nucleated Red Blood Cells # 0.0 Sodium Level 145 H Potassium Level 3.2 L Chloride Level 107 Carbon Dioxide Level 26 Anion Gap 15 Blood Urea Nitrogen 13 Creatinine 0.71 Glucose Level 110 Calcium Level 8.5 Phosphorus Level 5.5 H Magnesium Level 2.3 Total Bilirubin 0.2 Direct Bilirubin 0.00 Indirect Bilirubin 0.2 Aspartate Amino Transf (AST/SGOT) 64 H Alanine Aminotransferase (ALT/SGPT) 51 Alkaline Phosphatase 230 H Total Protein 6.8 Albumin 3.3 Globulin 3.50 H Albumin/Globulin Ratio 0.94 Medications Current Medications Acetaminophen (Tylenol Tab) 650 mg Q4H PRN PO pain/fever Last administered on 01/29/17 21:01; Admin Dose 650 MG; Start 12/31/16 at 01:00 Hydralazine HCl (Apresoline) 25 mg Q6H PRN PO sbp>160; Start 12/31/16 at 01:00 Enalaprilat (Vasotec Iv) 1.25 mg Q6H PRN IV sbp>160; Start 12/31/16 at 01:00 Ondansetron HCl (Zofran Inj) 4 mg Q4H PRN IV nausea; Start 12/31/16 at 01:00 Hydralazine HCl (Apresoline) 10 mg Q4H PRN IV ELEVATED SYSTOLIC BP Last administered on 02/01/17 22:10; Admin Dose 10 MG; Start 12/31/16 at 05:30 IV Flush (NS 10 ml) 10 ml PRN PRN IV IV PROTOCOL; Start 01/02/17 at 17:00 Lorazepam (Ativan) 2 mg Q2H PRN IV PRN Agitation. Last administered on 20:40; Admin Dose 2 MG; Start 01/04/17 at 09:00 Polyethylene Glycol (Miralax) 17 gm DAILY NGT Last administered on 02/04/17 08:11; Admin Dose 17 GM; Start 01/19/17 at 10:00 Carbamazepine (Tegretol Susp (Ped)) 400 mg BID NGT Last administered on 08:12; Admin Dose 400 MG; Start 01/22/17 at 21:00 Lansoprazole (Prevacid) 30 mg BID@,18 NGT Last administered on 02/04/17 05: 35; Admin Dose 30 MG; Start 01/24/17 at 18:00 Docusate Sodium (Colace Liquid Cup) 100 mg BID NGT Last administered on 08:11; Admin Dose 100 MG; Start 01/25/17 at 21:00 Quetiapine Fumarate 200 mg 200 mg Q6 NGT Last administered on 02/04/17 11:30 ; Admin Dose 200 MG; Start 01/27/17 at 12:00 Dextrose/Sodium Chloride (D5-1/2ns) 1,000 ml @ 75 mls/hr [id number] IV Last administered on 02/04/17 04:25; Admin Dose 75 MLS/HR; Start 01/27/17 at 09:30 Propranolol HCl (Inderal Iv) 2 mg BID IV Last administered on 02/03/17 07:57 ; Admin Dose 2 MG; Start 02/01/17 at 17:00 Dantrolene Sodium (Dantrium) 25 mg TID PO Last administered on 02/04/17 11:30 ; Admin Dose 25 MG; Start 02/01/17 at 18:00 Bromocriptine Mesylate (Parlodel) 2.5 mg TID PO Last administered on 11:30; Admin Dose 2.5 MG; Start 02/01/17 at 21:00 Amantadine HCl 200 mg 200 mg BID GTB Last administered on 02/04/17 08:11; Admin Dose 200 MG; Start 02/01/17 at 18:00 Thiamine HCl 100 mg/Dextrose 101 ml @ 202 mls/hr DAILY IV ; Start 02/05/17 at 09:00 Levofloxacin/ Dextrose (Levaquin 750 Mg/ D5W 150 ml (Pmx)) 150 ml @ 100 mls/hr Q24H IVPB ; Start 02/04/17 at 11:00 Amikacin Sulfate AMIKACIN PER PHARMACY NOTE XX ; Start 02/04/17 at 10:00 Amikacin Sulfate/ Dextrose (Amikacin/D5W) 104 ml @ 102 mls/hr Q24H IVPB ; Start 02/04/17 at 12:00 Assessment/Plan Chief Complaint/Hosp Course IMP: 1. 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 Acute Lung Injury/ARDS 3. History of drug overdose 4. 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 Possible neuroleptic malignant syndrome. Significant improvement in his neurological condition following treatment of neuroleptic malignant syndrome. 5. ALEX 6. Anemia 7. Continuing problems requiring sedation. Agree with pain management recommendations. RECS: 1. Status post tracheostomy and PEG. 2. Continue current vent settings for now 3. Tube feeds/Free H20 4. Minimize sedatives as tolerated 5. Continue antipsychotics continues treatment for NMS Problems: BRIANNA SAAVEDRA [facility] Feb 04, 2017 11:33
[2017-02-04 12:21] LABS: ADD UMIC YES; UR ASCORBIC ACID 40 mg/dL (NEGATIVE); UR BACTERIA FEW /HPF (NONE SEEN); UR BILIRUBIN (Dip) 1+ mg/dL (NEGATIVE); UR BLOOD (Dip) NEGATIVE (NEGATIVE); UR CLARITY CLEAR (CLEAR); UR COLOR AMBER (YELLOW); UR GLUCOSE (Dip) NEGATIVE (NEGATIVE); UR KETONES (Dip) NEGATIVE (NEGATIVE); UR LEUKOCYTE ESTERASE (Dip) 1+ Leu/ul (NEGATIVE); UR MUCUS MANY /HPF (NONE SEEN); UR NITRITE (Dip) NEGATIVE (NEGATIVE); UR RBC 15 /HPF (0-5); UR SPECIFIC GRAVITY (Dip) 1.035 (1.003-1.030); UR TOTAL PROTEIN (Dip) 2+ mg/dl (NEGATIVE); UR UROBILINOGEN (Dip) 2+ mg/dL (NEGATIVE)
[2017-02-04] MEDS: LEVOFLOXACIN 750MG/D5W (PMX) 150 ML IVPB SCH (12:51)
--- NOTE | 2017-02-04 13:26 | PN ---
Date/Time of Note Date/Time of Note DATE: 02/04/17 TIME: 13:26 Assessment/Plan Lines/Catheters IV Catheter Type (from Nrsg): PICC Line Lewis in Place (from Nrsg): Yes Assessment/Plan Chief Complaint/Hosp Course IMPRESSION: Respiratory failure. SP tracheostomy. tomorrow. continue vent support Discussed with the nursing staff. Problems: Subjective 24 Hr Interval Summary Constitutional: improved Pain Control: mild Exam/Review of Systems Vital Signs Vitals Vital Signs Date Time Temp Pulse Resp B/P Pulse Ox O2 Delivery O2 Flow Rate FiO2 02/04/17 12:00 82 23 100/68 99 Mechanical Ventilator 02/04/17 12:00 97.4 02/04/17 11:25 30 Intake and Output 02/03/17 02/03/17 02/04/17 14:59 22:59 06:59 Intake Total 940 ml 898 ml 1162 ml Output Total 820 ml 675 ml 380 ml Balance 120 ml 223 ml 782 ml Exam ENMT: mucosa pink and moist, nl external ears & nose, nl lips & teeth, nl nasal mucosa & septum Neck: non-tender, supple Respiratory: clear to auscultation, normal air movement Cardiovascular: nl pulses, regular rate and rhythm Results Result Diagram: 02/04/170 02/04/17429 JOSE GUAJARDO MD Feb 04, 2017 13:26
[2017-02-04] MEDS: AMIKACIN 1,000 MG in DEXTROSE 5% 100 ML IVPB SCH (15:06)
[2017-02-04] MEDS: LORAZEPAM 2 MG INJ IV PRN ×2 (18:25→20:28)
[2017-02-05] VITALS (37 sets, daily range): BP systolic 111–146; BP diastolic 72–101; PULSE 74–104; RESP 12–32
[2017-02-05] MEDS: QUETIAPINE 100 MG TAB NGT SCH ×4 (01:16→17:04)
[2017-02-05] MEDS: IPRATROPIUM (HFA) 12.9 GM INHALER INH SCH ×4 (01:42→20:18)
[2017-02-05] MEDS: ALBUTEROL HFA 8 GM INHALER INH SCH ×4 (01:43→20:18)
[2017-02-05] MEDS: LORAZEPAM 2 MG INJ IV PRN ×4 (05:10→22:12)
[2017-02-05] MEDS: LANSOPRAZOLE 30 MG CAP NGT SCH ×2 (06:31→17:04)
[2017-02-05] MEDS: DEXTROSE 5%-0.45% NACL 1,000 ML IV SCH ×2 (06:35→21:59)
--- NOTE | 2017-02-05 06:40 | CONS ---
Date/Time of Note Date/Time of Note DATE: 02/05/17 TIME: 06:35 Assessment/Plan Assessment/Plan Additional Assessment/Plan Remains encephalopathic this is day 4 of treatment for NMS this may continue for up to 2 weeks. However it is unclear whether not patient sustained any anoxic brain injury sedation for brief period of time and CT scan patient is to agitated for MR study. Suggest continue with this treatment course, suggest consider. Consultation Date/Type/Reason Admit Date/Time Dec 31, 2016 at 00:30 Initial Consult Date 01/17/17 Type of Consultation: Pain management Referring Provider: JEAN MARIE BRAGG MD Exam/Review of Systems Vital Signs Vitals Vital Signs Date Time Temp Pulse Resp B/P Pulse Ox O2 Delivery O2 Flow Rate FiO2 02/05/17 06:00 97 22 134/88 96 Mechanical Ventilator 02/05/17 05:06 30 02/05/17 04:00 98.6 Intake and Output 02/04/17 02/04/17 02/05/17 15:00 23:00 07:00 Intake Total 1265 ml 847 ml 320 ml Output Total 295 ml 990 ml 200 ml Balance 970 ml -143 ml 120 ml Exam Constitutional: other (Agitated moving all 4 extremities not following simple commands diaphoretic) Respiratory: congested cough, crackles/rales Neurological: other (Seems to follow some simple commands when asked to calm down and not move. Cranial nerves grossly still intact mortise findings intact moves all 4 extremities. Does not follow more complex commands. Fixed gait pupils equally round sluggish reactive to light extraocular movements grossly intact) Results Result Diagram: 02/04/17 0430 02/04/17 0430 Results 24 hrs Laboratory Tests Test 02/04/17 12:00 Urine Color ALYSSA Urine Clarity CLEAR Urine pH 5.0 Urine Specific [place] 1.035 H Urine Ketones NEGATIVE Urine Nitrite NEGATIVE Urine Bilirubin 1+ H Urine Urobilinogen 2+ H Urine Leukocyte Esterase 1+ H Urine Microscopic RBC 15 H Urine Microscopic WBC 46 H Urine Bacteria FEW A Urine Mucus MANY A Urine Hemoglobin NEGATIVE Urine Glucose NEGATIVE Urine Total Protein 2+ H Medications Medications Current Medications Acetaminophen (Tylenol Tab) 650 mg Q4H PRN PO pain/fever Last administered on 01/29/17t 21:01; Admin Dose 650 MG; Start 12/31/16 at 01:00 Hydralazine HCl (Apresoline) 25 mg Q6H PRN PO sbp>160; Start 12/31/16 at 01:00 Enalaprilat (Vasotec Iv) 1.25 mg Q6H PRN IV sbp>160; Start 12/31/16 at 01:00 Ondansetron HCl (Zofran Inj) 4 mg Q4H PRN IV nausea; Start 12/31/16 at 01:00 Hydralazine HCl (Apresoline) 10 mg Q4H PRN IV ELEVATED SYSTOLIC BP Last administered on 02/01/17 22:10; Admin Dose 10 MG; Start 12/31/16 at 05:30 IV Flush (NS 10 ml) 10 ml PRN PRN IV IV PROTOCOL; Start 01/02/17 at 17:00 Lorazepam (Ativan) 2 mg Q2H PRN IV PRN Agitation. Last administered on 05:10; Admin Dose 2 MG; Start 01/04/17 at 09:00 Polyethylene Glycol (Miralax) 17 gm DAILY NGT Last administered on 02/04/17 08:11; Admin Dose 17 GM; Start 01/19/17 at 10:00 Carbamazepine (Tegretol Susp (Ped)) 400 mg BID NGT Last administered on 21:58; Admin Dose 400 MG; Start 01/22/17 at 21:00 Lansoprazole (Prevacid) 30 mg BID@06,18 NGT Last administered on 02/05/17 06: 31; Admin Dose 30 MG; Start 01/24/17 at 18:00 Docusate Sodium (Colace Liquid Cup) 100 mg BID NGT Last administered on 21:51; Admin Dose 100 MG; Start 01/25/17 at 21:00 Quetiapine Fumarate 200 mg 200 mg Q6 NGT Last administered on 02/05/17 06:31 ; Admin Dose 200 MG; Start 01/27/17 at 12:00 Dextrose/Sodium Chloride (D5-1/2ns) 1,000 ml @ 75 mls/hr [id number] IV Last administered on 02/04/17 17:35; Admin Dose 75 MLS/HR; Start 01/27/17 at 09:30 Propranolol HCl (Inderal Iv) 2 mg BID IV Last administered on 02/04/17 21:58 ; Admin Dose 2 MG; Start 02/01/17 at 17:00 Dantrolene Sodium (Dantrium) 25 mg TID PO Last administered on 02/04/17 21:51 ; Admin Dose 25 MG; Start 02/01/17 at 18:00 Bromocriptine Mesylate (Parlodel) 2.5 mg TID PO Last administered on 21:52; Admin Dose 2.5 MG; Start 02/01/17 at 21:00 Amantadine HCl 200 mg 200 mg BID GTB Last administered on 02/04/17 21:52; Admin Dose 200 MG; Start 02/01/17 at 18:00 Thiamine HCl 100 mg/Dextrose 101 ml @ 202 mls/hr DAILY IV ; Start 02/05/17 at 09:00 Levofloxacin/ Dextrose (Levaquin 750 Mg/ D5W 150 ml (Pmx)) 150 ml @ 100 mls/hr Q24H IVPB Last administered on 02/04/17 12:51; Admin Dose 100 MLS/HR; Start 02/04/17 at 11:00 Amikacin Sulfate AMIKACIN PER PHARMACY NOTE XX ; Start 02/04/17 at 10:00 Amikacin Sulfate/ Dextrose (Amikacin/D5W) 104 ml @ 102 mls/hr Q24H IVPB Last administered on 02/04/17 15:06; Admin Dose 102 MLS/HR; Start 02/04/17 at 12: 00 NAZARIO LAURENT Feb 05, 2017 06:40
[2017-02-05 06:50] LABS: BASOPHIL # 0.1 10^3/ul (0.0-0.1); BASOPHILS % 0.8 % (0.0-2.0); EOSINOPHILS # 0.3 10^3/ul (0.0-0.5); EOSINOPHILS % 4.3 % (0.0-7.0); HEMATOCRIT 27.3 % (42.0-52.0); HEMOGLOBIN 8.6 g/dl (14.0-18.0); LYMPHOCYTES # 1.6 10^3/ul (0.8-2.9); LYMPHOCYTES % 19.9 % (15.0-51.0); MEAN CORPUSCULAR HEMOGLOBIN 27.7 pg (29.0-33.0); MEAN CORPUSCULAR HGB CONC 31.5 g/dl (32.0-37.0); MEAN CORPUSCULAR VOLUME 87.8 fl (82.0-101.0); MEAN PLATELET VOLUME 12.9 fl (7.4-10.4); MONOCYTE # 0.8 10^3/ul (0.3-0.9); MONOCYTES % 10.4 % (0.0-11.0); NEUTROPHILS % 64.1 % (39.0-77.0); PLATELET COUNT 293 10^3/UL (140-415); RED BLOOD COUNT 3.11 10^6/ul (4.70-6.10); RED CELL DISTRIBUTION WIDTH 14.1 % (11.5-14.5); WHITE BLOOD COUNT 7.9 10^3/ul (4.8-10.8)
[2017-02-05] MEDS ORDERED: LORAZEPAM 1 MG TAB PO ONE (07:00)
[2017-02-05 07:05] LABS: ALBUMIN 3.4 g/dl (3.3-4.9); ALBUMIN/GLOBULIN RATIO 1.09; BILIRUBIN,DIRECT 0.1 mg/dl (0.00-0.20); BILIRUBIN,TOTAL 0.1 mg/dl (0.2-1.3); CALCIUM 8.6 mg/dl (8.4-10.2); CREATININE 0.57 mg/dl (0.61-1.24); POTASSIUM 4.2 mmol/L (3.5-5.1); TOTAL PROTEIN 6.5 g/dl (6.1-8.1)
[2017-02-05 07:14] LABS: MAGNESIUM 2.1 mg/dl (1.7-2.5); PHOSPHORUS 4.3 mg/dl (2.5-4.9)
[2017-02-05] MEDS: PROPRANOLOL 1 MG INJ IV SCH ×2 (07:36→21:58)
[2017-02-05] MEDS: DIPHENHYDRAMINE 50 MG INJ IV PRN ×2 (07:36→18:41)
[2017-02-05] MEDS: DANTROLENE 25 MG CAP PO SCH ×3 (07:36→21:57)
[2017-02-05] MEDS: AMANTADINE 100 MG/10 ML POSYR GTB SCH ×2 (07:37→21:57)
[2017-02-05] MEDS: DOCUSATE SODIUM 10 MG/ML (10ML CUP) NGT SCH ×2 (07:53→21:57)
[2017-02-05] MEDS: BROMOCRIPTINE 2.5 MG TAB PO SCH ×3 (07:54→21:57)
[2017-02-05] MEDS: POLYETHYLENE GLYCOL 17 GM PACKET NGT SCH (07:54)
[2017-02-05] MEDS: ACETAMINOPHEN 325 MG TAB PO PRN (08:01)
[2017-02-05] MEDS ORDERED: DEXTROSE 5% IV SCH (09:00)
[2017-02-05] MEDS ORDERED: LORAZEPAM 2 MG INJ IV ONE (09:00)
[2017-02-05] MEDS ORDERED: THIAMINE IV SCH (09:00)
--- NOTE | 2017-02-05 09:22 | PN ---
Date/Time of Note Date/Time of Note DATE: 02/05/17 TIME: 09:13 Assessment/Plan VTE Prophylaxis VTE Prophylaxis Intervention: SCD's Lines/Catheters IV Catheter Type (from Nrs): PICC Line Central line still needed: Yes (For IV access) Urinary Cath still in place: Yes Reason Cath still needed: other (indicate) (Lewis changed on 02/04) Assessment/Plan Assessment/Plan 46 yo male with: 1. Severe encephalopathy 2ry to drug abuse likely Bath salts and/or synthetic marijuana and also bipolar disorder with violent behaviors and noncompliance with medications per previous psychiatry notes. Now possibility of neuroleptic malignant syndrome secondary to medication interactions. Patient again agitated this morning, moving all 4 extremities and diaphoretic while fighting against restraints. I appreciate recommendations from Dr. John, will continue current course of care, CT head ordered this morning this would be a repeat head imaging since MRI approximately 2 weeks ago. Currently of Ativan, fentanyl and propofol. CT head 2 since admission are both wnl, EEG x2 showing encephalopathy, MRI brain x1 wnl. S/p Tracheostomy and PEG tube placement On Inderal, bromocriptine, amantadine, dantrolene, propanolol for NMS treatment. On Seroquel and Tegretol Change thiamine to p.o. We will also check ammonia level as LFTs are slightly abnormal, and RPR. 2. Acute respiratory Failure 2ry to severe Encephalopathy from Drug overuse, intubated, sedated and paralysed. Patient was briefly extubated last week for 2 -1/2 hours but had to be reintubated due to inability to protect his airway, of note he was still on sedating agents. WBC within normal now and chest x-ray has been better but with compressive atelectasis. Still on FiO2 of 30% and PEEP of 7. Status post tracheostomy On Seroquel and Tegretol. 3. Bipolar disorder: Likely noncompliant with psychiatric medications. Medication resumed and adjusted to outpatient dosing based on the note from psychiatry 5 days prior to admission that were able to obtain last Wednesday, patient Seroquel can even be titrated higher, according to the notes he was on Seroquel XR, increased to 1000 mg nightly per the latest note. On Seroquel 200 mg QID and Carbamazepine to 400 mg twice daily. Again per the girlfriend it is very likely that the patient was not fully compliant. Also talked to Joel yesterday, very familiar with this patient at the [facility], patient again runs manic and is always agitated at baseline this is despite the multiple medications he has been prescribed as an outpatient, unclear if just difficult to control versus noncompliant. Joel will contact the patient's primary psychiatrist and get back to us with further recommendations if any, for now he does not see any changes that would be made. 4. Right foot Lisfranc fracture: Pain control and ? splint 5. Anemia: Hemoglobin stable at approx 8.2, status post 1 unit pRBC on 01/15. SCDs to lower extremities. Continue proton pump inhibitors. Monitor tolerance of tube feedings off Reglan. 6. Fevers: Now afebrile, sputum culture with multiple organisms including Staphylococcus aureus MSSA, Klebsiella pneumoniae, Enterobacter cloacae. Continue Levaquin to cover the respiratory pathogens and amikacin for MDR Klebsiella pneumoniae UTI. Follow-up repeat UA and urine culture New Lewis catheter as of 02/04 Contact isolation Prophylaxis: SCDs for DVT prophylaxis, Protonix for GI prophylaxis Disposition: Still in ICU, S/p PEG tube and Tracheostomy, so far unable to weaning off sedation or vent. Family meeting 01/14 did confirm that patient is noncompliant with medication, unfortunately he does have significant behavioral issues including violent behavior. He is a bipolar that seems to be mostly manic most of the time and noncompliant with medications at all. Drug use is an issue. We will await further recommendations from the patient's primary psychiatrist, he is supposed to call me back. I have discussed the patient's current clinical status and need for psychiatric assistance with Joel at the [facility] (# [phone]) Appreciate recommendations from Dr. John, medication changes effective as of this morning, will monitor for clinical improvement hopefully. Hopefully, he will be calmer and will be able to wean him off the IV drips/ sedating agents for subacute disposition. Jayda, the patient's 1/2 sister has made us understand that she will not be involved in the primary caregiving of patient and he will need to be placed at the time of discharge no matter what his condition. Subjective 24 Hr Interval Summary Free Text/Dictation Patient this morning again agitated, moving all 4 extremities fighting the restraints, diaphoretic, vital signs have been stable, he has been afebrile, CT head pending. Still remains off the multiple sedating drips, only currently on his antipsychotic medications Seroquel and carbamazepine. Also on treatment for NMS. Exam/Review of Systems Vital Signs Vitals Vital Signs Date Time Temp Pulse Resp B/P Pulse Ox O2 Delivery O2 Flow Rate FiO2 02/05/17 07:30 94 26 100 30 02/05/17 07:00 114/78 Mechanical Ventilator 02/05/17 04:00 98.6 Intake and Output 02/04/17 02/04/17 02/05/17 15:00 23:00 07:00 Intake Total 1265 ml 847 ml 560 ml Output Total 295 ml 990 ml 440 ml Balance 970 ml -143 ml 120 ml Exam Constitutional: other (Agitated and diaphoretic, moving all 4 extremities, sluggishly opening his eyes) Head: atraumatic, normocephalic Neck: other (Tracheostomy) Respiratory: clear to auscultation, other (On ventilator) Cardiovascular: other (Tachycardic while agitated) Gastrointestinal: non-tender, other (PEG tube), soft Musculoskeletal: nl extremities to inspection Extremities: normal pulses, other (No edema, clubbing or cyanosis) Neurological: PRINCIPAL CLERK TYPIST II-XII intact, nl strength, other (Not following commands per se, moving all 4 extremities with excellent strength) Results Result Diagram: 02/05/17 0500 02/05/17 0500 Results 24 hrs Laboratory Tests Test 02/04/17 12:00 02/05/17 05:00 Urine Color ALYSSA Urine Clarity CLEAR Urine pH 5.0 Urine Specific [place] 1.035 H Urine Ketones NEGATIVE Urine Nitrite NEGATIVE Urine Bilirubin 1+ H Urine Urobilinogen 2+ H Urine Leukocyte Esterase 1+ H Urine Microscopic RBC 15 H Urine Microscopic WBC 46 H Urine Bacteria FEW A Urine Mucus MANY A Urine Hemoglobin NEGATIVE Urine Glucose NEGATIVE Urine Total Protein 2+ H White Blood Count 7.9 Red Blood Count 3.11 L Hemoglobin 8.6 L Hematocrit 27.3 L Mean Corpuscular Volume 87.8 Mean Corpuscular Hemoglobin 27.7 L Mean Corpuscular Hemoglobin Concent 31.5 L Red Cell Distribution Width 14.1 Platelet Count 293 Mean Platelet Volume 12.9 H Neutrophils % 64.1 Lymphocytes % 19.9 Monocytes % 10.4 Eosinophils % 4.3 Basophils % 0.8 Nucleated Red Blood Cells % 0.0 Neutrophils # 5.0 Lymphocytes # 1.6 Monocytes # 0.8 Eosinophils # 0.3 Basophils # 0.1 Nucleated Red Blood Cells # 0.0 Sodium Level 144 Potassium Level 4.2 Chloride Level 107 Carbon Dioxide Level 23 Anion Gap 18 H Blood Urea Nitrogen 10 Creatinine 0.57 L Glucose Level 84 Calcium Level 8.6 Phosphorus Level 4.3 Magnesium Level 2.1 Total Bilirubin 0.1 L Direct Bilirubin 0.10 Indirect Bilirubin 0.0 Aspartate Amino Transf (AST/SGOT) 101 #H Alanine Aminotransferase (ALT/SGPT) 129 H Alkaline Phosphatase 246 H Total Protein 6.5 Albumin 3.4 Globulin 3.10 Albumin/Globulin Ratio 1.09 Medications Medications Current Medications Acetaminophen (Tylenol Tab) 650 mg Q4H PRN PO pain/fever Last administered on 02/05/17 08:01; Admin Dose 650 MG; Start 12/31/16 at 01:00 Hydralazine HCl (Apresoline) 25 mg Q6H PRN PO sbp>160; Start 12/31/16 at 01:00 Enalaprilat (Vasotec Iv) 1.25 mg Q6H PRN IV sbp>160; Start 12/31/16 at 01:00 Ondansetron HCl (Zofran Inj) 4 mg Q4H PRN IV nausea; Start 12/31/16 at 01:00 Hydralazine HCl (Apresoline) 10 mg Q4H PRN IV ELEVATED SYSTOLIC BP Last administered on 02/01/17 22:10; Admin Dose 10 MG; Start 12/31/16 at 05:30 IV Flush (NS 10 ml) 10 ml PRN PRN IV IV PROTOCOL; Start 01/02/17 at 17:00 Lorazepam (Ativan) 2 mg Q2H PRN IV PRN Agitation. Last administered on 08:01; Admin Dose 2 MG; Start 01/04/17 at 09:00 Polyethylene Glycol (Miralax) 17 gm DAILY NGT Last administered on 02/04/17 08:11; Admin Dose 17 GM; Start 01/19/17 at 10:00 Carbamazepine (Tegretol Susp (Ped)) 400 mg BID NGT Last administered on 21:58; Admin Dose 400 MG; Start 01/22/17 at 21:00 Lansoprazole (Prevacid) 30 mg BID@06,18 NGT Last administered on 02/05/17 06: 31; Admin Dose 30 MG; Start 01/24/17 at 18:00 Docusate Sodium (Colace Liquid Cup) 100 mg BID NGT Last administered on 21:51; Admin Dose 100 MG; Start 01/25/17 at 21:00 Quetiapine Fumarate 200 mg 200 mg Q6 NGT Last administered on 02/05/17 06:31 ; Admin Dose 200 MG; Start 01/27/17 at 12:00 Dextrose/Sodium Chloride (D5-1/2ns) 1,000 ml @ 75 mls/hr [id number] IV Last administered on 02/05/17 06:35; Admin Dose 75 MLS/HR; Start 01/27/17 at 09:30 Propranolol HCl (Inderal Iv) 2 mg BID IV Last administered on 02/05/17 07:36 ; Admin Dose 2 MG; Start 02/01/17 at 17:00 Dantrolene Sodium (Dantrium) 25 mg TID PO Last administered on 02/05/17 07:36 ; Admin Dose 25 MG; Start 02/01/17 at 18:00 Bromocriptine Mesylate (Parlodel) 2.5 mg TID PO Last administered on 07:54; Admin Dose 2.5 MG; Start 02/01/17 at 21:00 Amantadine HCl 200 mg 200 mg BID GTB Last administered on 02/05/17 07:37; Admin Dose 200 MG; Start 02/01/17 at 18:00 Thiamine HCl 100 mg/Dextrose 101 ml @ 202 mls/hr DAILY IV ; Start 02/05/17 at 09:00 Levofloxacin/ Dextrose (Levaquin 750 Mg/ D5W 150 ml (Pmx)) 150 ml @ 100 mls/hr Q24H IVPB Last administered on 02/04/17 12:51; Admin Dose 100 MLS/HR; Start 02/04/17 at 11:00 Amikacin Sulfate AMIKACIN PER PHARMACY NOTE XX ; Start 02/04/17 at 10:00 Amikacin Sulfate/ Dextrose (Amikacin/D5W) 104 ml @ 102 mls/hr Q24H IVPB Last administered on 02/04/17 15:06; Admin Dose 102 MLS/HR; Start 02/04/17 at 12: 00 Diphenhydramine HCl (Benadryl) 50 mg Q4H PRN IV sedation Last administered on 02/05/17 07:36; Admin Dose 50 MG; Start 02/05/17 at 07:00 TRENT NEWMAN Feb 05, 2017 09:22
[2017-02-05] MEDS ORDERED: SOD CHLORIDE 0.9% 100 ML ONE (09:38)
[2017-02-05] MEDS ORDERED: IOHEXOL 300MG/ML 150 ML BTL ONE (09:39)
[2017-02-05] MEDS: THIAMINE 100 MG TAB NGT SCH (10:28)
[2017-02-05] MEDS: carBAMAZepine SUSP 20 MG/ML POSYG NGT SCH ×2 (10:28→21:57)
--- NOTE | 2017-02-05 10:39 | RADRPT ---
PROCEDURE: CT Brain with and without contrast. CLINICAL INDICATION: Altered mental status, evaluate for anoxic injury TECHNIQUE: Routine CT scan of the brain was performed on a high resolution multi detector scanner with and without intravenous contrast. One or more of the following dose reduction techniques were u sed: Automated exposure control; Adjustment of the mA and/or kV according to patient size; Use of it erative reconstruction technique. CTDI = 45, 45 mGy. DLP = 1800 mGy-cm. DICOM images are available. CONTRAST: 75 ml Omnipaque 300 administered without adverse event. COMPARISON: MRI brain 01/19/2017 FINDINGS: Hemorrhage: No evidence of intracranial hemorrhage. Acute ischemic changes: No evidence of acute ischemic changes. Mass effect: None. Parenchymal volume: Within normal limits for age. Ventricular system: Concordant with parenchymal volume. Chronic changes: Parenchymal attenuation is within normal limits. Extracranial soft tissues: Unremarkable. Calvarium: No fractures. Paranasal sinuses: Moderate opacification throughout. Mastoid air cells: Visualized mastoid air cells are clear. IMPRESSION: No definite evidence of ischemic changes. No evidence of intracranial hemorrhage or mass effect. Normal appearance of the brain parenchyma. RPTAT: AADD .Pj Dangelo MD, MD Date Time Electronically viewed and signed by .Pj Dangelo MD, on 02/05/2017 10:39 .B/
--- NOTE | 2017-02-05 11:13 | CONS ---
Date/Time of Note Date/Time of Note DATE: 02/05/17 TIME: 11:08 Consult Date/Type/Reason Admit Date/Time Dec 31, 2016 at 00:30 Initial Consult Date 12/31/16 Type of Consultation: Pulm Ordering Provider: JEAN MARIE BRAGG MD Objective Vital Signs Date Time Temp Pulse Resp B/P Pulse Ox O2 Delivery O2 Flow Rate FiO2 02/05/17 07:30 94 26 100 30 02/05/17 07:00 114/78 Mechanical Ventilator 02/05/17 04:00 98.6 Intake and Output 02/04/17 02/04/17 02/05/17 15:00 23:00 07:00 Intake Total 1265 ml 847 ml 560 ml Output Total 295 ml 990 ml 440 ml Balance 970 ml -143 ml 120 ml Exam No significant changes. Continues mechanical ventilation increase agitation this morning. Results/Medications Result Diagram: 02/05/17 0500 02/05/17 0500 Results 24 hrs Laboratory Tests Test 02/04/17 12:00 02/05/17 05:00 Urine Color ALYSSA Urine Clarity CLEAR Urine pH 5.0 Urine Specific [place] 1.035 H Urine Ketones NEGATIVE Urine Nitrite NEGATIVE Urine Bilirubin 1+ H Urine Urobilinogen 2+ H Urine Leukocyte Esterase 1+ H Urine Microscopic RBC 15 H Urine Microscopic WBC 46 H Urine Bacteria FEW A Urine Mucus MANY A Urine Hemoglobin NEGATIVE Urine Glucose NEGATIVE Urine Total Protein 2+ H White Blood Count 7.9 Red Blood Count 3.11 L Hemoglobin 8.6 L Hematocrit 27.3 L Mean Corpuscular Volume 87.8 Mean Corpuscular Hemoglobin 27.7 L Mean Corpuscular Hemoglobin Concent 31.5 L Red Cell Distribution Width 14.1 Platelet Count 293 Mean Platelet Volume 12.9 H Neutrophils % 64.1 Lymphocytes % 19.9 Monocytes % 10.4 Eosinophils % 4.3 Basophils % 0.8 Nucleated Red Blood Cells % 0.0 Neutrophils # 5.0 Lymphocytes # 1.6 Monocytes # 0.8 Eosinophils # 0.3 Basophils # 0.1 Nucleated Red Blood Cells # 0.0 Sodium Level 144 Potassium Level 4.2 Chloride Level 107 Carbon Dioxide Level 23 Anion Gap 18 H Blood Urea Nitrogen 10 Creatinine 0.57 L Glucose Level 84 Calcium Level 8.6 Phosphorus Level 4.3 Magnesium Level 2.1 Total Bilirubin 0.1 L Direct Bilirubin 0.10 Indirect Bilirubin 0.0 Aspartate Amino Transf (AST/SGOT) 101 #H Alanine Aminotransferase (ALT/SGPT) 129 H Alkaline Phosphatase 246 H Total Protein 6.5 Albumin 3.4 Globulin 3.10 Albumin/Globulin Ratio 1.09 Medications Current Medications Acetaminophen (Tylenol Tab) 650 mg Q4H PRN PO pain/fever Last administered on 02/05/17 08:01; Admin Dose 650 MG; Start 12/31/16 at 01:00 Hydralazine HCl (Apresoline) 25 mg Q6H PRN PO sbp>160; Start 12/31/16 at 01:00 Enalaprilat (Vasotec Iv) 1.25 mg Q6H PRN IV sbp>160; Start 12/31/16 at 01:00 Ondansetron HCl (Zofran Inj) 4 mg Q4H PRN IV nausea; Start 12/31/16 at 01:00 Hydralazine HCl (Apresoline) 10 mg Q4H PRN IV ELEVATED SYSTOLIC BP Last administered on 02/01/17 22:10; Admin Dose 10 MG; Start 12/31/16 at 05:30 IV Flush (NS 10 ml) 10 ml PRN PRN IV IV PROTOCOL; Start 01/02/17 at 17:00 Lorazepam (Ativan) 2 mg Q2H PRN IV PRN Agitation. Last administered on 08:01; Admin Dose 2 MG; Start 01/04/17 at 09:00 Polyethylene Glycol (Miralax) 17 gm DAILY NGT Last administered on 02/04/17 08:11; Admin Dose 17 GM; Start 01/19/17 at 10:00 Carbamazepine (Tegretol Susp (Ped)) 400 mg BID NGT Last administered on 10:28; Admin Dose 400 MG; Start 01/22/17 at 21:00 Lansoprazole (Prevacid) 30 mg BID@,18 NGT Last administered on 02/05/17 06: 31; Admin Dose 30 MG; Start 01/24/17 at 18:00 Docusate Sodium (Colace Liquid Cup) 100 mg BID NGT Last administered on 21:51; Admin Dose 100 MG; Start 01/25/17 at 21:00 Quetiapine Fumarate 200 mg 200 mg Q6 NGT Last administered on 02/05/17 06:31 ; Admin Dose 200 MG; Start 01/27/17 at 12:00 Dextrose/Sodium Chloride (D5-1/2ns) 1,000 ml @ 75 mls/hr [id number] IV Last administered on 02/05/17 06:35; Admin Dose 75 MLS/HR; Start 01/27/17 at 09:30 Propranolol HCl (Inderal Iv) 2 mg BID IV Last administered on 02/05/17 07:36 ; Admin Dose 2 MG; Start 02/01/17 at 17:00 Dantrolene Sodium (Dantrium) 25 mg TID PO Last administered on 02/05/17 07:36 ; Admin Dose 25 MG; Start 02/01/17 at 18:00 Bromocriptine Mesylate (Parlodel) 2.5 mg TID PO Last administered on 07:54; Admin Dose 2.5 MG; Start 02/01/17 at 21:00 Amantadine HCl 200 mg 200 mg BID GTB Last administered on 02/05/17 07:37; Admin Dose 200 MG; Start 02/01/17 at 18:00 Levofloxacin/ Dextrose (Levaquin 750 Mg/ D5W 150 ml (Pmx)) 150 ml @ 100 mls/hr Q24H IVPB Last administered on 02/04/17 12:51; Admin Dose 100 MLS/HR; Start 02/04/17 at 11:00 Amikacin Sulfate AMIKACIN PER PHARMACY NOTE XX ; Start 02/04/17 at 10:00 Amikacin Sulfate/ Dextrose (Amikacin/D5W) 104 ml @ 102 mls/hr Q24H IVPB Last administered on 02/04/17 15:06; Admin Dose 102 MLS/HR; Start 02/04/17 at 12: 00 Diphenhydramine HCl (Benadryl) 50 mg Q4H PRN IV sedation Last administered on 02/05/17 07:36; Admin Dose 50 MG; Start 02/05/17 at 07:00 Thiamine HCl (Vitamin B1) 100 mg DAILY NGT Last administered on 02/05/17 10: 28; Admin Dose 100 MG; Start 02/05/17 at 09:30 Assessment/Plan Chief Complaint/Hosp Course IMP: 1. 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 Acute Lung Injury/ARDS 3. History of drug overdose 4. 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 Possible neuroleptic malignant syndrome. Significant improvement in his neurological condition following treatment of neuroleptic malignant syndrome. 5. ALEX 6. Anemia 7. Continuing problems requiring sedation. Agree with pain management recommendations. RECS: 1. Status post tracheostomy and PEG. 2. Continue current vent settings for now 3. Tube feeds/Free H20 4. Minimize sedatives as tolerated 5. Continue antipsychotics continues treatment for NMS Problems: BRIANNA SAAVEDRA MD, [facility] Feb 05, 2017 11:13
[2017-02-05] MEDS: AMIKACIN 1,000 MG in DEXTROSE 5% 100 ML IVPB SCH (12:18)
[2017-02-05] MEDS: LEVOFLOXACIN 750MG/D5W (PMX) 150 ML IVPB SCH (12:18)
--- NOTE | 2017-02-05 19:57 | PN ---
Date/Time of Note Date/Time of Note DATE: 02/05/17 TIME: 19:56 Assessment/Plan Lines/Catheters IV Catheter Type (from Nrsg): PICC Line Lewis in Place (from Nrsg): Yes Assessment/Plan Chief Complaint/Hosp Course IMPRESSION: Respiratory failure. SP tracheostomy. tomorrow. continue vent support Discussed with the nursing staff. Problems: Subjective 24 Hr Interval Summary Constitutional: improved Pain Control: mild Exam/Review of Systems Vital Signs Vitals Vital Signs Date Time Temp Pulse Resp B/P Pulse Ox O2 Delivery O2 Flow Rate FiO2 02/05/17 18:30 88 18 119/75 100 Mechanical Ventilator 02/05/17 18:16 30 02/05/17 16:00 98.9 Intake and Output 02/04/17 02/04/17 02/05/17 15:00 23:00 07:00 Intake Total 1265 ml 847 ml 635 ml Output Total 295 ml 990 ml 440 ml Balance 970 ml -143 ml 195 ml Exam Neck: non-tender, supple Respiratory: clear to auscultation, normal air movement Cardiovascular: nl pulses, regular rate and rhythm Gastrointestinal: nl liver, spleen, non-tender, soft Results Result Diagram: 02/05/17 0500 02/05/17 0500 JOSE GUAJARDO MD Feb 05, 2017 19:57
[2017-02-06] VITALS (36 sets, daily range): BP systolic 102–150; BP diastolic 66–129; PULSE 73–102; RESP 16–30
[2017-02-06] MEDS: LORAZEPAM 2 MG INJ IV PRN ×4 (00:10→23:32)
[2017-02-06] MEDS: QUETIAPINE 100 MG TAB NGT SCH ×4 (00:55→18:07)
[2017-02-06] MEDS: IPRATROPIUM (HFA) 12.9 GM INHALER INH SCH ×4 (01:14→19:07)
[2017-02-06] MEDS: ALBUTEROL HFA 8 GM INHALER INH SCH ×4 (01:14→19:07)
[2017-02-06] MEDS: LANSOPRAZOLE 30 MG CAP NGT SCH ×2 (06:12→18:07)
[2017-02-06 06:43] LABS: ALBUMIN 3.1 g/dl (3.3-4.9); BILIRUBIN,DIRECT 0.4 mg/dl (0.00-0.20); BILIRUBIN,TOTAL 0.4 mg/dl (0.2-1.3); CREATININE 0.56 mg/dl (0.61-1.24); POTASSIUM 3.2 mmol/L (3.5-5.1); TOTAL PROTEIN 6.2 g/dl (6.1-8.1)
[2017-02-06 06:51] LABS: MAGNESIUM 1.8 mg/dl (1.7-2.5); PHOSPHORUS 5.1 mg/dl (2.5-4.9)
[2017-02-06 07:40] LABS: ABNORMAL IP MESSAGE 1; BASOPHIL # 0.1 10^3/ul (0.0-0.1); BASOPHILS % 1.1 % (0.0-2.0); EOSINOPHILS # 0.2 10^3/ul (0.0-0.5); EOSINOPHILS % 5.5 % (0.0-7.0); HEMATOCRIT 24.3 % (42.0-52.0); HEMOGLOBIN 7.7 g/dl (14.0-18.0); LYMPHOCYTES # 1.1 10^3/ul (0.8-2.9); LYMPHOCYTES % 25.6 % (15.0-51.0); MEAN CORPUSCULAR HGB CONC 31.7 g/dl (32.0-37.0); MEAN CORPUSCULAR VOLUME 88.4 fl (82.0-101.0); MEAN PLATELET VOLUME 13.2 fl (7.4-10.4); MONOCYTE # 0.5 10^3/ul (0.3-0.9); MONOCYTES % 10.5 % (0.0-11.0); NEUTROPHIL # 2.5 10^3/ul (1.6-7.5); NEUTROPHILS % 56.8 % (39.0-77.0); POSITIVE DIFF @See below; RED BLOOD COUNT 2.75 10^6/ul (4.70-6.10); RED CELL DISTRIBUTION WIDTH 14.1 % (11.5-14.5); WHITE BLOOD COUNT 4.4 10^3/ul (4.8-10.8)
[2017-02-06 07:46] LABS: PLATELET COUNT 142 10^3/UL (140-415)
[2017-02-06] MEDS: THIAMINE 100 MG TAB NGT SCH (09:21)
[2017-02-06] MEDS: BROMOCRIPTINE 2.5 MG TAB PO SCH ×3 (09:21→20:31)
[2017-02-06] MEDS: DANTROLENE 25 MG CAP PO SCH ×3 (09:21→20:32)
[2017-02-06] MEDS: DOCUSATE SODIUM 10 MG/ML (10ML CUP) NGT SCH ×2 (09:22→20:44)
[2017-02-06] MEDS: PROPRANOLOL 1 MG INJ IV SCH ×2 (09:22→20:33)
[2017-02-06] MEDS: POLYETHYLENE GLYCOL 17 GM PACKET NGT SCH (09:23)
[2017-02-06] MEDS: AMANTADINE 100 MG/10 ML POSYR GTB SCH ×2 (09:23→20:31)
[2017-02-06] MEDS: carBAMAZepine SUSP 20 MG/ML POSYG NGT SCH ×2 (09:23→20:31)
[2017-02-06] MEDS: DEXTROSE 5%-0.45% NACL 1,000 ML IV SCH (10:06)
--- NOTE | 2017-02-06 11:27 | CONS ---
Date/Time of Note Date/Time of Note DATE: 02/06/17 TIME: 11:26 Assessment/Plan Assessment/Plan Chief Complaint/Hosp Course dictated # [id number] Problems: Additional Assessment/Plan Ventilator setting; AC of 20, tidal volume 600, PEEP of 7, 30% FiO2. Assessment and recommendations; next 1. Patient admitted with drug overdose ultimately requiring tracheostomy and G- tube. There has been improvement in overall clinical status. 2. Mild anemia and thrombocytopenia. Continue current supportive care. Patient to be transferred to rehab center. Consultation Date/Type/Reason Admit Date/Time Dec 31, 2016 at 00:30 Initial Consult Date 12/31/16 Type of Consultation: Pulm Referring Provider: JEAN MARIE BRAGG MD 24 HR Interval Summary Free Text/Dictation Patient's condition is stable. Remains awake. Has remained hemodynamically stable. General exam; middle-aged male, on ventilator via tracheostomy, currently in no distress. Exam/Review of Systems Vital Signs Vitals Vital Signs Date Time Temp Pulse Resp B/P Pulse Ox O2 Delivery O2 Flow Rate FiO2 02/06/17 09:00 92 16 140/97 98 Mechanical Ventilator 02/06/17 08:01 30 02/06/17 07:30 98.4 Intake and Output 02/05/17 02/05/17 02/06/17 14:59 22:59 06:59 Intake Total 1072 ml 805 ml 760 ml Output Total 440 ml 1500 ml 650 ml Balance 632 ml -695 ml 110 ml Exam HEENT exam; supple neck, positive JVD. No lymphadenopathy. Midline trachea. No thyromegaly. Tracheostomy in place. Patient has fair dentition. Chest exam; diminished but clear breath sounds. S1-S2 audible, no murmurs. Regular rhythm. Abdomen exam; soft, G-tube in place. No organomegaly. Bowel sounds audible. Extremity exam; no peripheral edema. HELP DESK ANALYST exam; patient awake and follows simple commands. Results Result Diagram: 02/06/1742902/06/17 043 Results 24 hrs Laboratory Tests Test 02/06/17 04:30 White Blood Count 4.4 #L Red Blood Count 2.75 L Hemoglobin 7.7 L Hematocrit 24.3 L Mean Corpuscular Volume 88.4 Mean Corpuscular Hemoglobin 28.0 L Mean Corpuscular Hemoglobin Concent 31.7 L Red Cell Distribution Width 14.1 Platelet Count 142 # Mean Platelet Volume 13.2 H Neutrophils % 56.8 Lymphocytes % 25.6 Monocytes % 10.5 Eosinophils % 5.5 Basophils % 1.1 Nucleated Red Blood Cells % 0.0 Neutrophils # 2.5 Lymphocytes # 1.1 Monocytes # 0.5 Eosinophils # 0.2 Basophils # 0.1 Nucleated Red Blood Cells # 0.0 Sodium Level 140 Potassium Level 3.2 L Chloride Level 105 Carbon Dioxide Level 22 Anion Gap 16 Blood Urea Nitrogen 7 Creatinine 0.56 L Glucose Level 377 #H Calcium Level 8.0 L Phosphorus Level 5.1 H Magnesium Level 1.8 Total Bilirubin 0.4 Direct Bilirubin 0.40 #H Indirect Bilirubin 0.0 Aspartate Amino Transf (AST/SGOT) 84 H Alanine Aminotransferase (ALT/SGPT) 120 H Alkaline Phosphatase 212 H Total Protein 6.2 Albumin 3.1 L Globulin 3.10 Albumin/Globulin Ratio 1.00 Medications Medications Current Medications Acetaminophen (Tylenol Tab) 650 mg Q4H PRN PO pain/fever Last administered on 02/05/17 08:01; Admin Dose 650 MG; Start 12/31/16 at 01:00 Hydralazine HCl (Apresoline) 25 mg Q6H PRN PO sbp>160; Start 12/31/16 at 01:00 Enalaprilat (Vasotec Iv) 1.25 mg Q6H PRN IV sbp>160; Start 12/31/16 at 01:00 Ondansetron HCl (Zofran Inj) 4 mg Q4H PRN IV nausea; Start 12/31/16 at 01:00 Hydralazine HCl (Apresoline) 10 mg Q4H PRN IV ELEVATED SYSTOLIC BP Last administered on 02/01/17 22:10; Admin Dose 10 MG; Start 12/31/16 at 05:30 IV Flush (NS 10 ml) 10 ml PRN PRN IV IV PROTOCOL; Start 01/02/17 at 17:00 Lorazepam (Ativan) 2 mg Q2H PRN IV PRN Agitation. Last administered on 03:29; Admin Dose 2 MG; Start 01/04/17 at 09:00 Polyethylene Glycol (Miralax) 17 gm DAILY NGT Last administered on 02/06/17 09:23; Admin Dose 17 GM; Start 01/19/17 at 10:00 Carbamazepine (Tegretol Susp (Ped)) 400 mg BID NGT Last administered on 09:23; Admin Dose 400 MG; Start 01/22/17 at 21:00 Lansoprazole (Prevacid) 30 mg BID@06,18 NGT Last administered on 02/06/17 06: 12; Admin Dose 30 MG; Start 01/24/17 at 18:00 Docusate Sodium (Colace Liquid Cup) 100 mg BID NGT Last administered on 09:22; Admin Dose 100 MG; Start 01/25/17 at 21:00 Quetiapine Fumarate 200 mg 200 mg Q6 NGT Last administered on 02/06/17 06:13 ; Admin Dose 200 MG; Start 01/27/17 at 12:00 Dextrose/Sodium Chloride (D5-1/2ns) 1,000 ml @ 75 mls/hr [id number] IV Last administered on 02/06/17 10:06; Admin Dose 75 MLS/HR; Start 01/27/17 at 09:30 Propranolol HCl (Inderal Iv) 2 mg BID IV Last administered on 02/06/17 09:22 ; Admin Dose 2 MG; Start 02/01/17 at 17:00 Dantrolene Sodium (Dantrium) 25 mg TID PO Last administered on 02/06/17 09:21 ; Admin Dose 25 MG; Start 02/01/17 at 18:00 Bromocriptine Mesylate (Parlodel) 2.5 mg TID PO Last administered on 09:21; Admin Dose 2.5 MG; Start 02/01/17 at 21:00 Amantadine HCl 200 mg 200 mg BID GTB Last administered on 02/06/17 09:23; Admin Dose 200 MG; Start 02/01/17 at 18:00 Levofloxacin/ Dextrose (Levaquin 750 Mg/ D5W 150 ml (Pmx)) 150 ml @ 100 mls/hr Q24H IVPB Last administered on 02/05/17 12:18; Admin Dose 100 MLS/HR; Start 02/04/17 at 11:00 Amikacin Sulfate AMIKACIN PER PHARMACY NOTE XX ; Start 02/04/17 at 10:00 Amikacin Sulfate/ Dextrose (Amikacin/D5W) 104 ml @ 102 mls/hr Q24H IVPB Last administered on 02/05/17 12:18; Admin Dose 102 MLS/HR; Start 02/04/17 at 12: 00 Diphenhydramine HCl (Benadryl) 50 mg Q4H PRN IV sedation Last administered on 02/05/17 18:41; Admin Dose 50 MG; Start 02/05/17 at 07:00 Thiamine HCl (Vitamin B1) 100 mg DAILY NGT Last administered on 02/06/17 09: 21; Admin Dose 100 MG; Start 02/05/17 at 09:30 VU FLORES Feb 06, 2017 11:27
[2017-02-06] MEDS: LEVOFLOXACIN 750MG/D5W (PMX) 150 ML IVPB SCH (12:08)
[2017-02-06] MEDS: AMIKACIN 1,000 MG in DEXTROSE 5% 100 ML IVPB SCH (12:15)
[2017-02-06] MEDS: POTASSIUM CHLORIDE 50 ML IVPB PRN ×3 (12:22→15:02)
[2017-02-06] MEDS ORDERED: MAGNESIUM SULFATE 1 GM/D5W 100 ML IVPB ONE (13:00)
--- NOTE | 2017-02-06 13:25 | PN ---
Date/Time of Note Date/Time of Note DATE: 02/06/17 TIME: 13:25 Assessment/Plan Lines/Catheters IV Catheter Type (from Nrsg): PICC Line Lewis in Place (from Nrsg): Yes Assessment/Plan Chief Complaint/Hosp Course IMPRESSION: Respiratory failure. SP tracheostomy. tomorrow. continue vent support Discussed with the nursing staff. Problems: Subjective 24 Hr Interval Summary Constitutional: improved Pain Control: mild Exam/Review of Systems Vital Signs Vitals Vital Signs Date Time Temp Pulse Resp B/P Pulse Ox O2 Delivery O2 Flow Rate FiO2 02/06/17 13:00 84 22 117/85 100 Mechanical Ventilator 02/06/17 11:00 98.6 02/06/17 08:01 30 Intake and Output 02/05/17 02/05/17 02/06/17 15:00 23:00 07:00 Intake Total 1082 ml 805 ml 790 ml Output Total 540 ml 1450 ml 650 ml Balance 542 ml -645 ml 140 ml Results Result Diagram: 02/06/17 0430 02/06/17 0430 JOSE GUAJARDO MD Feb 06, 2017 13:25
[2017-02-06] MEDS: ALTEPLASE (CATHFLO) 2 MG INJ CATHETER PRN (14:27)
[2017-02-06] MEDS ORDERED: POTASSIUM CHLORIDE 30 MEQ in SOD CHLORIDE 0.9% 150 ML IVPB ONE (15:00)
--- NOTE | 2017-02-06 21:11 | PN ---
Date/Time of Note Date/Time of Note DATE: 02/06/17 TIME: 21:03 Assessment/Plan VTE Prophylaxis VTE Prophylaxis Intervention: SCD's Lines/Catheters IV Catheter Type (from Nrs): PICC Line Central line still needed: Yes (Critically ill) Urinary Cath still in place: Yes (Uncontrolled urination, concern about retention.) Reason Cath still needed: other (indicate) (Concern about retention with pain treatment) Assessment/Plan Assessment/Plan [facility] 1. 46 yo man with a severe encephalopathy secondary to drug abuse. Underlying bipolar/anti-social disorder with violent behavior. Concern about neuroleptic malignant syndrome. Less agitated this morning, calm in bed off all sedation. He is moving all [address] head yesterday showed no definite evidence of ischemic changes, and no evidence of intracranial hemorrhage or mass effect and normal appearance of the brain parenchyma. EEG x2 showing encephalopathy, MRI brain two weeks ago was within normal. Ammonia level yesterday was undetectable. Transaminases were mildly improved today. * Continue Inderal, bromocriptine, amantadine, dantrolene, propanolol for NMS treatment, Seroquel and Tegretol * Vitamin supplement (including thiamine) per PEG 2. Acute respiratory failure, oxygenating well now on 30% FiO2, AC16, PEEP 7. CXR four days ago showed only mild atelectasis. No leukocytosis now, so no evidence of pneumonic process. 3. Right foot Lisfranc (mid-foot) fracture * Continued efforts at pain control without excess sedation * Splinting 4. Anemia: Hemoglobin lower today at stable at approx 7.7 g/dl. No obvious bleeding. Stooling more frequently now, but without melena. His last pRBC transfusion was on 01/15. * SCDs to lower extremities. * Continue proton pump inhibitors. 5. Nutrition, per PEG. * Monitor tolerance of tube feedings off Reglan. * Potassium replacement today (60mEq IV). * Magnesium replacement IV * Stop Miralax due to more frequent stooling. 6. Previous fevers. Continued afebrile, sputum culture with multiple organisms including Staphylococcus aureus MSSA, Klebsiella pneumoniae, Enterobacter cloacae. Urine now positive for multi-drug resistant Klebsiella pneumoniae carbapenemase. * Continue Levaquin to cover the respiratory pathogens * Amikacin for MDR Klebsiella pneumoniae UTI. * Continue contact isolation 7. Prophylaxis: SCDs for DVT prophylaxis, Protonix for GI prophylaxis 8. Disposition: Discussion today about suitability for jail care, given the new tranquility off sedation. Still in ICU s/p PEG tube and tracheostomy. Considerable psychiatric overlay, with need for psychiatric assistance (Joel at the [facility] # [phone]). Appreciate guidance from Dr. John. Jayda, the patient's half-sister indicaed she will not be involved in the primary caregiving of patient and he will need to be placed at the time of discharge no matter what his condition. Fran Osborne MD PhD [phone] Subjective 24 Hr Interval Summary Free Text/Dictation Non-verbal, but making good eye contact and responding to touch. Relatively calm, without pulling at lines or tracheostomy. No visitors. Exam/Review of Systems Vital Signs Vitals Vital Signs Date Time Temp Pulse Resp B/P Pulse Ox O2 Delivery O2 Flow Rate FiO2 02/06/17 19:08 78 20 100 30 02/06/17 17:00 142/98 Mechanical Ventilator 02/06/17 16:00 98.7 Intake and Output 02/05/17 02/05/17 02/06/17 14:59 22:59 06:59 Intake Total 1072 ml 805 ml 760 ml Output Total 440 ml 1500 ml 650 ml Balance 632 ml -695 ml 110 ml Exam Constitutional: Calm, moving all 4 extremities, eyes wide open. Head: Normal reactive pupils, no conjunctivitis. Tracheostomy in place, with no erythema. Respiratory: Clear to auscultation bilaterally, on ventilator Cardiovascular: Regular rhythm, normal rate, no murmur. Gastrointestinal: non-tender, PEG in place, soft, bowel sounds positive. Musculoskeletal: Normal pulses, with no edema, clubbing or cyanosis. Neurological: ACCREDITATION MANAGER II-XII intact, nl strength. Not able to follow commands ( including opening his mouth), But moving all 4 extremities. Results Result Diagram: 02/06/1742902/06/17 043 Results 24 hrs Laboratory Tests Test 02/06/17 04:30 02/06/17 11:53 02/06/17 13:11 White Blood Count 4.4 #L Red Blood Count 2.75 L Hemoglobin 7.7 L Hematocrit 24.3 L Mean Corpuscular Volume 88.4 Mean Corpuscular Hemoglobin 28.0 L Mean Corpuscular Hemoglobin Concent 31.7 L Red Cell Distribution Width 14.1 Platelet Count 142 # Mean Platelet Volume 13.2 H Neutrophils % 56.8 Lymphocytes % 25.6 Monocytes % 10.5 Eosinophils % 5.5 Basophils % 1.1 Nucleated Red Blood Cells % 0.0 Neutrophils # 2.5 Lymphocytes # 1.1 Monocytes # 0.5 Eosinophils # 0.2 Basophils # 0.1 Nucleated Red Blood Cells # 0.0 Sodium Level 140 Potassium Level 3.2 L Chloride Level 105 Carbon Dioxide Level 22 Anion Gap 16 Blood Urea Nitrogen 7 Creatinine 0.56 L Glucose Level 377 #H Calcium Level 8.0 L Phosphorus Level 5.1 H Magnesium Level 1.8 Total Bilirubin 0.4 Direct Bilirubin 0.40 #H Indirect Bilirubin 0.0 Aspartate Amino Transf (AST/SGOT) 84 H Alanine Aminotransferase (ALT/SGPT) 120 H Alkaline Phosphatase 212 H Total Protein 6.2 Albumin 3.1 L Globulin 3.10 Albumin/Globulin Ratio 1.00 Lab Scanned Report REFERENCE LAB Bedside Glucose 113 Medications Medications Current Medications Acetaminophen (Tylenol Tab) 650 mg Q4H PRN PO pain/fever Last administered on 02/05/17 08:01; Admin Dose 650 MG; Start 12/31/16 at 01:00 Hydralazine HCl (Apresoline) 25 mg Q6H PRN PO sbp>160; Start 12/31/16 at 01:00 Enalaprilat (Vasotec Iv) 1.25 mg Q6H PRN IV sbp>160; Start 12/31/16 at 01:00 Ondansetron HCl (Zofran Inj) 4 mg Q4H PRN IV nausea; Start 12/31/16 at 01:00 Hydralazine HCl (Apresoline) 10 mg Q4H PRN IV ELEVATED SYSTOLIC BP Last administered on 02/01/17 22:10; Admin Dose 10 MG; Start 12/31/16 at 05:30 IV Flush (NS 10 ml) 10 ml PRN PRN IV IV PROTOCOL; Start 01/02/17 at 17:00 Lorazepam (Ativan) 2 mg Q2H PRN IV PRN Agitation. Last administered on 20:11; Admin Dose 2 MG; Start 01/04/17 at 09:00 Carbamazepine (Tegretol Susp (Ped)) 400 mg BID NGT Last administered on 20:31; Admin Dose 400 MG; Start 01/22/17 at 21:00 Lansoprazole (Prevacid) 30 mg BID@,18 NGT Last administered on 02/06/17 18: 07; Admin Dose 30 MG; Start 01/24/17 at 18:00 Docusate Sodium (Colace Liquid Cup) 100 mg BID NGT Last administered on 09:22; Admin Dose 100 MG; Start 01/25/17 at 21:00 Quetiapine Fumarate 200 mg 200 mg Q6 NGT Last administered on 02/06/17 18:07 ; Admin Dose 200 MG; Start 01/27/17 at 12:00 Dextrose/Sodium Chloride (D5-1/2ns) 1,000 ml @ 75 mls/hr [id number] IV Last administered on 02/06/17 10:06; Admin Dose 75 MLS/HR; Start 01/27/17 at 09:30 Propranolol HCl (Inderal Iv) 2 mg BID IV Last administered on 02/06/17 20:33 ; Admin Dose 2 MG; Start 02/01/17 at 17:00 Dantrolene Sodium (Dantrium) 25 mg TID PO Last administered on 02/06/17 20:32 ; Admin Dose 25 MG; Start 02/01/17 at 18:00 Bromocriptine Mesylate (Parlodel) 2.5 mg TID PO Last administered on 20:31; Admin Dose 2.5 MG; Start 02/01/17 at 21:00 Amantadine HCl 200 mg 200 mg BID GTB Last administered on 02/06/17 20:31; Admin Dose 200 MG; Start 02/01/17 at 18:00 Levofloxacin/ Dextrose (Levaquin 750 Mg/ D5W 150 ml (Pmx)) 150 ml @ 100 mls/hr Q24H IVPB Last administered on 02/06/17 12:08; Admin Dose 100 MLS/HR; Start 02/04/17 at 11:00 Amikacin Sulfate AMIKACIN PER PHARMACY NOTE XX ; Start 02/04/17 at 10:00 Amikacin Sulfate/ Dextrose (Amikacin/D5W) 104 ml @ 102 mls/hr Q24H IVPB Last administered on 02/06/17 12:15; Admin Dose 102 MLS/HR; Start 02/04/17 at 12: 00 Diphenhydramine HCl (Benadryl) 50 mg Q4H PRN IV sedation Last administered on 02/05/17 18:41; Admin Dose 50 MG; Start 02/05/17 at 07:00 Thiamine HCl (Vitamin B1) 100 mg DAILY NGT Last administered on 02/06/17 09: 21; Admin Dose 100 MG; Start 02/05/17 at 09:30 Miscellaneous Information (*Rx Drug Level Order Reminder*) 1 ONCE ONCE XX ; Start 02/07/17 at 11:00; Stop 02/07/17 at 11:01 YOGESH OSBORNE M.D. Feb 06, 2017 21:11 Amikacin Sulfate/ Dextrose (Amikacin/D5W) 104 ml @ 102 mls/hr Q24H IVPB Last administered on 02/06/17 12:15; Admin Dose 102 MLS/HR; Start 02/04/17 at 12: 00 Diphenhydramine HCl (Benadryl) 50 mg Q4H PRN IV sedation Last administered on 02/05/17 18:41; Admin Dose 50 MG; Start 02/05/17 at 07:00 Thiamine HCl (Vitamin B1) 100 mg DAILY NGT Last administered on 02/06/17 09: 21; Admin Dose 100 MG; Start 02/05/17 at 09:30 Miscellaneous Information (*Rx Drug Level Order Reminder*) 1 ONCE ONCE XX ; Start 02/07/17 at 11:00; Stop 02/07/17 at 11:01 YOGESH OSBORNE M.D. Feb 06, 2017 21:11 00 Diphenhydramine HCl (Benadryl) 50 mg Q4H PRN IV sedation Last administered on 02/05/17 18:41; Admin Dose 50 MG; Start 02/05/17 at 07:00 Thiamine HCl (Vitamin B1) 100 mg DAILY NGT Last administered on 02/06/17 09: 21; Admin Dose 100 MG; Start 02/05/17 at 09:30 Miscellaneous Information (*Rx Drug Level Order Reminder*) 1 ONCE ONCE XX ; Start 02/07/17 at 11:00; Stop 02/07/17 at 11:01 YOGESH OSBORNE M.D. Feb 06, 2017 21:11 YOGESH OSBORNE M.D. Feb 06, 2017 21:11 YOGESH OSBORNE M.D. Feb 06, 2017 21:11
[2017-02-06] MEDS: DIPHENHYDRAMINE 50 MG INJ IV PRN (21:32)
[2017-02-07] VITALS (33 sets, daily range): BP systolic 113–157; BP diastolic 76–105; PULSE 67–98; RESP 13–29
[2017-02-07] MEDS: QUETIAPINE 100 MG TAB NGT SCH ×4 (00:57→18:06)
[2017-02-07] MEDS: ALBUTEROL HFA 8 GM INHALER INH SCH ×4 (01:22→19:08)
[2017-02-07] MEDS: IPRATROPIUM (HFA) 12.9 GM INHALER INH SCH ×4 (01:22→19:09)
[2017-02-07] MEDS: LORAZEPAM 2 MG INJ IV PRN ×2 (01:42→13:24)
[2017-02-07] MEDS: DIPHENHYDRAMINE 50 MG INJ IV PRN ×2 (01:42→13:24)
[2017-02-07] MEDS: DEXTROSE 5%-0.45% NACL 1,000 ML IV SCH ×3 (02:23→19:00)
[2017-02-07] MEDS ORDERED: LORAZEPAM 2 MG INJ IV STA (02:26)
[2017-02-07] MEDS: LANSOPRAZOLE 30 MG CAP NGT SCH ×2 (06:06→18:06)
[2017-02-07 06:49] LABS: BASOPHIL # 0.1 10^3/ul (0.0-0.1); BASOPHILS % 1.2 % (0.0-2.0); EOSINOPHILS # 0.4 10^3/ul (0.0-0.5); EOSINOPHILS % 5.6 % (0.0-7.0); HEMATOCRIT 27.5 % (42.0-52.0); HEMOGLOBIN 8.9 g/dl (14.0-18.0); LYMPHOCYTES # 1.1 10^3/ul (0.8-2.9); LYMPHOCYTES % 17.7 % (15.0-51.0); MEAN CORPUSCULAR HEMOGLOBIN 28.3 pg (29.0-33.0); MEAN CORPUSCULAR HGB CONC 32.4 g/dl (32.0-37.0); MEAN CORPUSCULAR VOLUME 87.3 fl (82.0-101.0); MONOCYTE # 0.6 10^3/ul (0.3-0.9); MONOCYTES % 9.3 % (0.0-11.0); NEUTROPHIL # 4.2 10^3/ul (1.6-7.5); NEUTROPHILS % 65.7 % (39.0-77.0); PLATELET COUNT 369 10^3/UL (140-415); RED BLOOD COUNT 3.15 10^6/ul (4.70-6.10); RED CELL DISTRIBUTION WIDTH 14.1 % (11.5-14.5); WHITE BLOOD COUNT 6.4 10^3/ul (4.8-10.8)
[2017-02-07 07:11] LABS: CALCIUM 8.8 mg/dl (8.4-10.2); CREATININE 0.65 mg/dl (0.61-1.24); MAGNESIUM 2.1 mg/dl (1.7-2.5); POTASSIUM 3.6 mmol/L (3.5-5.1)
[2017-02-07] MEDS: THIAMINE 100 MG TAB NGT SCH (09:33)
[2017-02-07] MEDS: DOCUSATE SODIUM 10 MG/ML (10ML CUP) NGT SCH ×2 (09:33→21:00)
[2017-02-07] MEDS: BROMOCRIPTINE 2.5 MG TAB PO SCH ×3 (09:33→21:28)
[2017-02-07] MEDS: AMANTADINE 100 MG/10 ML POSYR GTB SCH ×2 (09:34→21:27)
[2017-02-07] MEDS: carBAMAZepine SUSP 20 MG/ML POSYG NGT SCH ×2 (09:34→21:27)
[2017-02-07] MEDS: DANTROLENE 25 MG CAP PO SCH ×3 (09:53→21:29)
[2017-02-07] MEDS: PROPRANOLOL 1 MG INJ IV SCH ×2 (09:54→21:28)
--- NOTE | 2017-02-07 11:04 | CONS ---
Date/Time of Note Date/Time of Note DATE: 02/07/17 TIME: 11:01 Assessment/Plan Assessment/Plan Chief Complaint/Hosp Course dictated # [id number] Problems: Additional Assessment/Plan Ventilator setting; AC of 20, tidal volume 500, PEEP of 7, 30% FiO2. Assessment and recommendations; 1. Patient admitted with multidrug overdose and failed to be weaned off from invasive mechanical ventilation and ultimately requiring tracheostomy. 2. Underlying morbid obesity. 3. History of drug abuse. 4. Possibly some element of pneumonia. Patient currently on appropriate antibiotic regimen. 5. Waxing and waning mental status. Continue current supportive care. Consultation Date/Type/Reason Admit Date/Time Dec 31, 2016 at 00:30 Initial Consult Date 12/31/16 Type of Consultation: Pulm Referring Provider: JEAN MARIE BRAGG MD 24 HR Interval Summary Free Text/Dictation Patient's condition is stable. Remains awake. Has remained hemodynamically stable. General exam; middle-aged male, morbidly obese, on ventilator via tracheostomy, currently in no distress. Exam/Review of Systems Vital Signs Vitals Vital Signs Date Time Temp Pulse Resp B/P Pulse Ox O2 Delivery O2 Flow Rate FiO2 02/07/17 09:24 78 02/07/17 08:00 100.1 19 136/100 100 Mechanical Ventilator Trach Collar 02/07/17 05:25 30 Intake and Output 02/06/17 02/06/17 02/07/17 14:59 22:59 06:59 Intake Total 1424 ml 605 ml 1220 ml Output Total 1100 ml 1600 ml 800 ml Balance 324 ml -995 ml 420 ml Exam HEENT exam; supple neck, no JVD. No lymphadenopathy. Midline trachea. No thyromegaly. Patient has fair dentition. Tracheostomy in place with clean insertion site. Pupils are small bilaterally. Chest exam; clear to auscultation. S1-S2 audible, no murmurs. Regular rhythm. Abdomen exam; soft, G-tube in place. No organomegaly. Bowel sounds audible. Extremity exam; no peripheral edema. FLOOR CARE SPECIALIST exam; patient is awake and follows simple commands. No focal motor deficit. Results Result Diagram: 02/07/17 0550 02/07/17 0550 Results 24 hrs Laboratory Tests Test 02/06/17 11:53 02/06/17 13:11 02/07/17 05:50 Lab Scanned Report REFERENCE LAB Bedside Glucose 113 White Blood Count 6.4 # Red Blood Count 3.15 L Hemoglobin 8.9 L Hematocrit 27.5 L Mean Corpuscular Volume 87.3 Mean Corpuscular Hemoglobin 28.3 L Mean Corpuscular Hemoglobin Concent 32.4 Red Cell Distribution Width 14.1 Platelet Count 369 # Mean Platelet Volume 12.0 H Neutrophils % 65.7 Lymphocytes % 17.7 Monocytes % 9.3 Eosinophils % 5.6 Basophils % 1.2 Nucleated Red Blood Cells % 0.0 Neutrophils # 4.2 Lymphocytes # 1.1 Monocytes # 0.6 Eosinophils # 0.4 Basophils # 0.1 Nucleated Red Blood Cells # 0.0 Sodium Level 145 H Potassium Level 3.6 Chloride Level 106 Carbon Dioxide Level 27 Anion Gap 16 Blood Urea Nitrogen 6 L Creatinine 0.65 Glucose Level 109 # Calcium Level 8.8 Magnesium Level 2.1 Medications Medications Current Medications Acetaminophen (Tylenol Tab) 650 mg Q4H PRN PO pain/fever Last administered on 02/05/17 08:01; Admin Dose 650 MG; Start 12/31/16 at 01:00 Hydralazine HCl (Apresoline) 25 mg Q6H PRN PO sbp>160; Start 12/31/16 at 01:00 Enalaprilat (Vasotec Iv) 1.25 mg Q6H PRN IV sbp>160; Start 12/31/16 at 01:00 Ondansetron HCl (Zofran Inj) 4 mg Q4H PRN IV nausea; Start 12/31/16 at 01:00 Hydralazine HCl (Apresoline) 10 mg Q4H PRN IV ELEVATED SYSTOLIC BP Last administered on 02/01/17 22:10; Admin Dose 10 MG; Start 12/31/16 at 05:30 IV Flush (NS 10 ml) 10 ml PRN PRN IV IV PROTOCOL; Start 01/02/17 at 17:00 Lorazepam (Ativan) 2 mg Q2H PRN IV PRN Agitation. Last administered on 01:42; Admin Dose 2 MG; Start 01/04/17 at 09:00 Carbamazepine (Tegretol Susp (Ped)) 400 mg BID NGT Last administered on 09:34; Admin Dose 400 MG; Start 01/22/17 at 21:00 Lansoprazole (Prevacid) 30 mg BID@06,18 NGT Last administered on 02/07/17 06: 06; Admin Dose 30 MG; Start 01/24/17 at 18:00 Docusate Sodium (Colace Liquid Cup) 100 mg BID NGT Last administered on 09:33; Admin Dose 100 MG; Start 01/25/17 at 21:00 Quetiapine Fumarate 200 mg 200 mg Q6 NGT Last administered on 02/07/17 06:06 ; Admin Dose 200 MG; Start 01/27/17 at 12:00 Dextrose/Sodium Chloride (D5-1/2ns) 1,000 ml @ 75 mls/hr [id number] IV Last administered on 02/07/17 02:23; Admin Dose 75 MLS/HR; Start 01/27/17 at 09:30 Propranolol HCl (Inderal Iv) 2 mg BID IV Last administered on 02/07/17 09:54 ; Admin Dose 2 MG; Start 02/01/17 at 17:00 Dantrolene Sodium (Dantrium) 25 mg TID PO Last administered on 02/07/17 09:53 ; Admin Dose 25 MG; Start 02/01/17 at 18:00 Bromocriptine Mesylate (Parlodel) 2.5 mg TID PO Last administered on 09:33; Admin Dose 2.5 MG; Start 02/01/17 at 21:00 Amantadine HCl 200 mg 200 mg BID GTB Last administered on 02/07/17 09:34; Admin Dose 200 MG; Start 02/01/17 at 18:00 Levofloxacin/ Dextrose (Levaquin 750 Mg/ D5W 150 ml (Pmx)) 150 ml @ 100 mls/hr Q24H IVPB Last administered on 02/06/17 12:08; Admin Dose 100 MLS/HR; Start 02/04/17 at 11:00 Amikacin Sulfate AMIKACIN PER PHARMACY NOTE XX ; Start 02/04/17 at 10:00 Amikacin Sulfate/ Dextrose (Amikacin/D5W) 104 ml @ 102 mls/hr Q24H IVPB Last administered on 02/06/17 12:15; Admin Dose 102 MLS/HR; Start 02/04/17 at 12: 00 Diphenhydramine HCl (Benadryl) 50 mg Q4H PRN IV sedation Last administered on 02/07/17 01:42; Admin Dose 50 MG; Start 02/05/17 at 07:00 Thiamine HCl (Vitamin B1) 100 mg DAILY NGT Last administered on 02/07/17 09: 33; Admin Dose 100 MG; Start 02/05/17 at 09:30 Miscellaneous Information (*Rx Drug Level Order Reminder*) 1 ONCE ONCE XX ; Start 02/07/17 at 11:00; Stop 02/07/17 at 11:01 VU FLORES Feb 07, 2017 11:03
[2017-02-07] MEDS: POTASSIUM CHLORIDE 50 ML IVPB PRN ×2 (11:08→13:59)
[2017-02-07] MEDS: LEVOFLOXACIN 750MG/D5W (PMX) 150 ML IVPB SCH (11:15)
[2017-02-07] MEDS: AMIKACIN 1,000 MG in DEXTROSE 5% 100 ML IVPB SCH ×2 (12:57→13:29)
--- NOTE | 2017-02-07 13:05 | PN ---
Date/Time of Note Date/Time of Note DATE: 02/07/17 TIME: 13:04 Assessment/Plan Lines/Catheters IV Catheter Type (from Nrsg): PICC Line Lewis in Place (from Nrsg): Yes Assessment/Plan Chief Complaint/Hosp Course IMPRESSION: Respiratory failure. SP SP tracheostomy continue vent support Discussed with the nursing staff. Problems: Subjective 24 Hr Interval Summary Constitutional: improved Pain Control: mild Exam/Review of Systems Vital Signs Vitals Vital Signs Date Time Temp Pulse Resp B/P Pulse Ox O2 Delivery O2 Flow Rate FiO2 02/07/17 10:00 98.0 81 13 123/86 100 Mechanical Ventilator 02/07/17 08:00 30 Intake and Output 02/06/17 02/06/17 02/07/17 14:59 22:59 06:59 Intake Total 1424 ml 605 ml 1220 ml Output Total 1100 ml 1600 ml 800 ml Balance 324 ml -995 ml 420 ml Exam ENMT: mucosa pink and moist, nl external ears & nose, nl lips & teeth, nl nasal mucosa & septum Neck: non-tender, supple Respiratory: clear to auscultation, normal air movement Cardiovascular: nl pulses, regular rate and rhythm Gastrointestinal: nl liver, spleen, non-tender, soft Results Result Diagram: 02/07/17 0550 02/07/17 0550 JOSE GUAJARDO MD Feb 07, 2017 13:05
--- NOTE | 2017-02-07 22:18 | PN ---
Date/Time of Note Date/Time of Note DATE: 02/07/17 TIME: 22:15 Assessment/Plan VTE Prophylaxis VTE Prophylaxis Intervention: SCD's Lines/Catheters IV Catheter Type (from [facility]): PICC Line Central line still needed: No Urinary Cath still in place: Yes Reason Cath still needed: other (indicate) (Unable to communicate, control urine. Consider condom catheter.) Assessment/Plan Assessment/Plan [facility] 1. 46 yo man with a severe encephalopathy secondary to drug abuse, now hospital day #39. Underlying bipolar/anti-social disorder with violent behavior. Concern about neuroleptic malignant syndrome this past week. He was mildly agitated overnight, but relatively calm all day off all sedation. MRI and CT of the brain have shown normal brain parenchyma. An EEG showed encephalopathy. Ammonia level and transaminases were not re-checked. * Continue Inderal, bromocriptine, amantadine, dantrolene, propanolol for NMS treatment, Seroquel and Tegretol * Vitamin supplement (including thiamine) per PEG * Recheck electrolytes, CBC tomorrow 2. Acute respiratory failure, oxygenating well now on 30% FiO2, AC16, PEEP 7. CXR five days ago showed only mild atelectasis. No leukocytosis now, so no evidence of pneumonic process. 3. Right foot Lisfranc (mid-foot) fracture * Continued efforts at pain control without excess sedation * Splinting 4. Anemia: Hemoglobin lower today improved to 8.9 g/dl. No obvious bleeding. Stooling without melena. His last pRBC transfusion was on 01/15. * SCDs to lower extremities. * Continue proton pump inhibitors. 5. Nutrition, per PEG. * Monitor tolerance of tube feedings off Reglan. * Magnesium replacement IV 6. Fevers now resolved. Continued afebrile, sputum culture with multiple organisms including Staphylococcus aureus MSSA, Klebsiella pneumoniae, Enterobacter cloacae. Urine now positive for multi-drug resistant Klebsiella pneumoniae carbapenemase. * Continue Levaquin to cover the respiratory pathogens * Amikacin for MDR Klebsiella pneumoniae UTI. * Continue contact isolation 7. Prophylaxis: SCDs for DVT prophylaxis, Protonix for GI prophylaxis 8. Disposition: Discussion again today about suitability for half-way care. Long stretches now of tranquility off sedation, with occasional restlessness. Still in ICU s/p PEG tube and tracheostomy. * Input from Joel at the [facility] # [phone]' * Dr. John consult * Unclear whether we could get a sitter overnight, so kept in ICU as a precaution. * Researching intermediate care facilities. Fran Osborne MD PhD [phone] Subjective 24 Hr Interval Summary Free Text/Dictation Non-verbal, but again making good eye contact today. Able to grasp my hand. Turning spontaneously [id number] in bed. Relatively calm, without pulling at lines or tracheostomy. No visitors seen today. Exam/Review of Systems Vital Signs Vitals Vital Signs Date Time Temp Pulse Resp B/P Pulse Ox O2 Delivery O2 Flow Rate FiO2 02/07/17 21:00 77 19 113/79 100 Mechanical Ventilator 02/07/17 20:00 30 02/07/17 16:00 98.4 Intake and Output 02/06/17 02/06/17 02/07/17 14:59 22:59 06:59 Intake Total 1424 ml 605 ml 1220 ml Output Total 1100 ml 1600 ml 800 ml Balance 324 ml -995 ml 420 ml Exam Constitutional: Calm, moving [id number], eyes open with good eye contact. Head: Normal reactive pupils, no conjunctivitis. Tracheostomy in place, with no erythema. Respiratory: Clear to auscultation bilaterally, on ventilator at AC16, PEEP 7, 30% FiO2. Cardiovascular: Regular rhythm, normal rate, no murmur. Gastrointestinal: Non-tender, PEG in place, soft, bowel sounds positive. Musculoskeletal: Normal pulses, with no edema, clubbing or cyanosis. Neurological: Increased alertness, MARINE METEOROLOGIST II-XII grossly intact, moving all extremities. Toes downgoing. Results Result Diagram: 02/07/17 0550 02/07/17 0550 Results 24 hrs Laboratory Tests Test 02/07/17 05:50 White Blood Count 6.4 # Red Blood Count 3.15 L Hemoglobin 8.9 L Hematocrit 27.5 L Mean Corpuscular Volume 87.3 Mean Corpuscular Hemoglobin 28.3 L Mean Corpuscular Hemoglobin Concent 32.4 Red Cell Distribution Width 14.1 Platelet Count 369 # Mean Platelet Volume 12.0 H Neutrophils % 65.7 Lymphocytes % 17.7 Monocytes % 9.3 Eosinophils % 5.6 Basophils % 1.2 Nucleated Red Blood Cells % 0.0 Neutrophils # 4.2 Lymphocytes # 1.1 Monocytes # 0.6 Eosinophils # 0.4 Basophils # 0.1 Nucleated Red Blood Cells # 0.0 Sodium Level 145 H Potassium Level 3.6 Chloride Level 106 Carbon Dioxide Level 27 Anion Gap 16 Blood Urea Nitrogen 6 L Creatinine 0.65 Glucose Level 109 # Calcium Level 8.8 Magnesium Level 2.1 Medications Medications Current Medications Acetaminophen (Tylenol Tab) 650 mg Q4H PRN PO pain/fever Last administered on 02/05/17 08:01; Admin Dose 650 MG; Start 12/31/16 at 01:00 Hydralazine HCl (Apresoline) 25 mg Q6H PRN PO sbp>160; Start 12/31/16 at 01:00 Enalaprilat (Vasotec Iv) 1.25 mg Q6H PRN IV sbp>160; Start 12/31/16 at 01:00 Ondansetron HCl (Zofran Inj) 4 mg Q4H PRN IV nausea; Start 12/31/16 at 01:00 Hydralazine HCl (Apresoline) 10 mg Q4H PRN IV ELEVATED SYSTOLIC BP Last administered on 02/01/17 22:10; Admin Dose 10 MG; Start 12/31/16 at 05:30 IV Flush (NS 10 ml) 10 ml PRN PRN IV IV PROTOCOL; Start 01/02/17 at 17:00 Lorazepam (Ativan) 2 mg Q2H PRN IV PRN Agitation. Last administered on 13:24; Admin Dose 2 MG; Start 01/04/17 at 09:00 Carbamazepine (Tegretol Susp (Ped)) 400 mg BID NGT Last administered on 21:27; Admin Dose 400 MG; Start 01/22/17 at 21:00 Lansoprazole (Prevacid) 30 mg BID@,18 NGT Last administered on 02/07/17 18: 06; Admin Dose 30 MG; Start 01/24/17 at 18:00 Docusate Sodium (Colace Liquid Cup) 100 mg BID NGT Last administered on 09:33; Admin Dose 100 MG; Start 01/25/17 at 21:00 Quetiapine Fumarate 200 mg 200 mg Q6 NGT Last administered on 02/07/17 18:06 ; Admin Dose 200 MG; Start 01/27/17 at 12:00 Dextrose/Sodium Chloride (D5-1/2ns) 1,000 ml @ 75 mls/hr [id number] IV Last administered on 02/07/17 12:10; Admin Dose 75 MLS/HR; Start 01/27/17 at 09:30 Propranolol HCl (Inderal Iv) 2 mg BID IV Last administered on 02/07/17 21:28 ; Admin Dose 2 MG; Start 02/01/17 at 17:00 Dantrolene Sodium (Dantrium) 25 mg TID PO Last administered on 02/07/17 21:29 ; Admin Dose 25 MG; Start 02/01/17 at 18:00 Bromocriptine Mesylate (Parlodel) 2.5 mg TID PO Last administered on 21:28; Admin Dose 2.5 MG; Start 02/01/17 at 21:00 Amantadine HCl 200 mg 200 mg BID GTB Last administered on 02/07/17 21:27; Admin Dose 200 MG; Start 02/01/17 at 18:00 Levofloxacin/ Dextrose (Levaquin 750 Mg/ D5W 150 ml (Pmx)) 150 ml @ 100 mls/hr Q24H IVPB Last administered on 02/07/17 11:15; Admin Dose 100 MLS/HR; Start 02/04/17 at 11:00 Amikacin Sulfate AMIKACIN PER PHARMACY NOTE XX ; Start 02/04/17 at 10:00 Amikacin Sulfate/ Dextrose (Amikacin/D5W) 104 ml @ 102 mls/hr Q24H IVPB Last administered on 02/07/17 12:57; Admin Dose 102 MLS/HR; Start 02/04/17 at 12: 00 Diphenhydramine HCl (Benadryl) 50 mg Q4H PRN IV sedation Last administered on 02/07/17 13:24; Admin Dose 50 MG; Start 02/05/17 at 07:00 Thiamine HCl (Vitamin B1) 100 mg DAILY NGT Last administered on 02/07/17 09: 33; Admin Dose 100 MG; Start 02/05/17 at 09:30 YOGESH OSBORNE M.D. Feb 07, 2017 22:17
[2017-02-08] VITALS (36 sets, daily range): BP systolic 92–156; BP diastolic 64–110; PULSE 71–107; RESP 15–30
[2017-02-08] MEDS: QUETIAPINE 100 MG TAB NGT SCH ×4 (00:18→18:19)
[2017-02-08] MEDS: IPRATROPIUM (HFA) 12.9 GM INHALER INH SCH ×4 (01:15→19:23)
[2017-02-08] MEDS: ALBUTEROL HFA 8 GM INHALER INH SCH ×4 (01:15→19:23)
[2017-02-08] MEDS: DEXTROSE 5%-0.45% NACL 1,000 ML IV SCH ×2 (03:10→17:42)
[2017-02-08 06:34] LABS: BASOPHIL # 0.1 10^3/ul (0.0-0.1); BASOPHILS % 0.8 % (0.0-2.0); EOSINOPHILS # 0.4 10^3/ul (0.0-0.5); EOSINOPHILS % 6.1 % (0.0-7.0); HEMATOCRIT 28.5 % (42.0-52.0); LYMPHOCYTES # 1.4 10^3/ul (0.8-2.9); LYMPHOCYTES % 22.7 % (15.0-51.0); MEAN CORPUSCULAR HEMOGLOBIN 27.7 pg (29.0-33.0); MEAN CORPUSCULAR HGB CONC 31.6 g/dl (32.0-37.0); MEAN CORPUSCULAR VOLUME 87.7 fl (82.0-101.0); MEAN PLATELET VOLUME 11.9 fl (7.4-10.4); MONOCYTE # 0.6 10^3/ul (0.3-0.9); MONOCYTES % 9.1 % (0.0-11.0); NEUTROPHIL # 3.7 10^3/ul (1.6-7.5); NEUTROPHILS % 60.6 % (39.0-77.0); PLATELET COUNT 389 10^3/UL (140-415); RED BLOOD COUNT 3.25 10^6/ul (4.70-6.10); RED CELL DISTRIBUTION WIDTH 14.3 % (11.5-14.5)
[2017-02-08] MEDS: LANSOPRAZOLE 30 MG CAP NGT SCH ×2 (06:49→18:19)
[2017-02-08 07:33] LABS: ALBUMIN 3.3 g/dl (3.3-4.9); ALBUMIN/GLOBULIN RATIO 0.94; BILIRUBIN,INDIRECT 0.1 mg/dl (0-1.1); BILIRUBIN,TOTAL 0.1 mg/dl (0.2-1.3); CALCIUM 9.1 mg/dl (8.4-10.2); CREATININE 0.65 mg/dl (0.61-1.24); POTASSIUM 3.7 mmol/L (3.5-5.1); TOTAL PROTEIN 6.8 g/dl (6.1-8.1)
--- NOTE | 2017-02-08 07:53 | CONS ---
Date/Time of Note Date/Time of Note DATE: 02/08/17 TIME: 07:47 Assessment/Plan Assessment/Plan Additional Assessment/Plan 46-year-old gentleman in the intensive care unit PEG trach. History of prior drug abuse history of altered mental status possibly related to atypical antipsychotics which was necessarily prescribed secondary to patient's increasing agitation. He is off all sedation at this time and is responding to simple commands tracking appears to be in no distress. Course of treatment for neuroleptic malignant syndrome should be continue for an additional week. Will follow and assess patient's baseline medical condition and cognitive status was prior to this hospitalization. The only change since occurred over the weekend was progressive improvement in his cognitive function, suggest physical therapy. Okay to move out of the intensive care unit with a sitter if okay with . Consultation Date/Type/Reason Admit Date/Time Dec 31, 2016 at 00:30 Initial Consult Date 01/17/17 Type of Consultation: Pain management Referring Provider: JEAN MARIE BRAGG MD Exam/Review of Systems Vital Signs Vitals Vital Signs Date Time Temp Pulse Resp B/P Pulse Ox O2 Delivery O2 Flow Rate FiO2 02/08/17 07:00 71 15 129/83 100 02/08/17 06:00 Mechanical Ventilator 02/08/17 05:10 30 02/08/17 04:00 98.4 Intake and Output 02/07/17 02/07/17 02/08/17 14:59 22:59 06:59 Intake Total 1300 ml 754 ml 1800 ml Output Total 1100 ml 1700 ml 1150 ml Balance 200 ml -946 ml 650 ml Exam Constitutional: alert, oriented, well developed Respiratory: clear to auscultation, normal air movement Cardiovascular: nl pulses, regular rate and rhythm Extremities: normal pulses Neurological: other (Cranial nerves II through XII grossly intact motor sensory findings grossly within normal limits follow simple commands tracks squeezes my hands does a thumbs up on command ) Results Result Diagram: 02/08/17 0500 02/08/17 0500 Results 24 hrs Laboratory Tests Test 02/08/17 05:00 White Blood Count 6.0 Red Blood Count 3.25 L Hemoglobin 9.0 L Hematocrit 28.5 L Mean Corpuscular Volume 87.7 Mean Corpuscular Hemoglobin 27.7 L Mean Corpuscular Hemoglobin Concent 31.6 L Red Cell Distribution Width 14.3 Platelet Count 389 Mean Platelet Volume 11.9 H Neutrophils % 60.6 Lymphocytes % 22.7 Monocytes % 9.1 Eosinophils % 6.1 Basophils % 0.8 Nucleated Red Blood Cells % 0.0 Neutrophils # 3.7 Lymphocytes # 1.4 Monocytes # 0.6 Eosinophils # 0.4 Basophils # 0.1 Nucleated Red Blood Cells # 0.0 Sodium Level 143 Potassium Level 3.7 Chloride Level 105 Carbon Dioxide Level 28 Anion Gap 14 Blood Urea Nitrogen 6 L Creatinine 0.65 Glucose Level 105 Calcium Level 9.1 Total Bilirubin 0.1 L Direct Bilirubin 0.00 Indirect Bilirubin 0.1 Aspartate Amino Transf (AST/SGOT) 36 Alanine Aminotransferase (ALT/SGPT) 111 H Alkaline Phosphatase 215 H Ammonia 28 Total Protein 6.8 Albumin 3.3 Globulin 3.50 H Albumin/Globulin Ratio 0.94 Medications Medications Current Medications Acetaminophen (Tylenol Tab) 650 mg Q4H PRN PO pain/fever Last administered on 02/05/17 08:01; Admin Dose 650 MG; Start 12/31/16 at 01:00 Hydralazine HCl (Apresoline) 25 mg Q6H PRN PO sbp>160; Start 12/31/16 at 01:00 Enalaprilat (Vasotec Iv) 1.25 mg Q6H PRN IV sbp>160; Start 12/31/16 at 01:00 Ondansetron HCl (Zofran Inj) 4 mg Q4H PRN IV nausea; Start 12/31/16 at 01:00 Hydralazine HCl (Apresoline) 10 mg Q4H PRN IV ELEVATED SYSTOLIC BP Last administered on 02/01/17 22:10; Admin Dose 10 MG; Start 12/31/16 at 05:30 IV Flush (NS 10 ml) 10 ml PRN PRN IV IV PROTOCOL; Start 01/02/17 at 17:00 Lorazepam (Ativan) 2 mg Q2H PRN IV PRN Agitation. Last administered on 13:24; Admin Dose 2 MG; Start 01/04/17 at 09:00 Carbamazepine (Tegretol Susp (Ped)) 400 mg BID NGT Last administered on 21:27; Admin Dose 400 MG; Start 01/22/17 at 21:00 Lansoprazole (Prevacid) 30 mg BID@06,18 NGT Last administered on 02/08/17 06: 49; Admin Dose 30 MG; Start 01/24/17 at 18:00 Docusate Sodium (Colace Liquid Cup) 100 mg BID NGT Last administered on 09:33; Admin Dose 100 MG; Start 01/25/17 at 21:00 Quetiapine Fumarate 200 mg 200 mg Q6 NGT Last administered on 02/08/17 06:49 ; Admin Dose 200 MG; Start 01/27/17 at 12:00 Dextrose/Sodium Chloride (D5-1/2ns) 1,000 ml @ 75 mls/hr [id number] IV Last administered on 02/07/17 19:00; Admin Dose 75 MLS/HR; Start 01/27/17 at 09:30 Propranolol HCl (Inderal Iv) 2 mg BID IV Last administered on 02/07/17 21:28 ; Admin Dose 2 MG; Start 02/01/17 at 17:00 Dantrolene Sodium (Dantrium) 25 mg TID PO Last administered on 02/07/17 21:29 ; Admin Dose 25 MG; Start 02/01/17 at 18:00 Bromocriptine Mesylate (Parlodel) 2.5 mg TID PO Last administered on 21:28; Admin Dose 2.5 MG; Start 02/01/17 at 21:00 Amantadine HCl 200 mg 200 mg BID GTB Last administered on 02/07/17 21:27; Admin Dose 200 MG; Start 02/01/17 at 18:00 Levofloxacin/ Dextrose (Levaquin 750 Mg/ D5W 150 ml (Pmx)) 150 ml @ 100 mls/hr Q24H IVPB Last administered on 02/07/17 11:15; Admin Dose 100 MLS/HR; Start 02/04/17 at 11:00 Amikacin Sulfate AMIKACIN PER PHARMACY NOTE XX ; Start 02/04/17 at 10:00 Amikacin Sulfate/ Dextrose (Amikacin/D5W) 104 ml @ 102 mls/hr Q24H IVPB Last administered on 02/07/17 12:57; Admin Dose 102 MLS/HR; Start 02/04/17 at 12: 00 Diphenhydramine HCl (Benadryl) 50 mg Q4H PRN IV sedation Last administered on 02/07/17 13:24; Admin Dose 50 MG; Start 02/05/17 at 07:00 Thiamine HCl (Vitamin B1) 100 mg DAILY NGT Last administered on 02/07/17 09: 33; Admin Dose 100 MG; Start 02/05/17 at 09:30 NAZARIO LAURENT Feb 08, 2017 07:53
[2017-02-08] MEDS: DOCUSATE SODIUM 10 MG/ML (10ML CUP) NGT SCH ×2 (09:13→20:51)
[2017-02-08] MEDS: PROPRANOLOL 1 MG INJ IV SCH ×2 (09:14→21:06)
[2017-02-08] MEDS: BROMOCRIPTINE 2.5 MG TAB PO SCH ×3 (09:14→21:09)
[2017-02-08] MEDS: THIAMINE 100 MG TAB NGT SCH (09:14)
[2017-02-08] MEDS: DANTROLENE 25 MG CAP PO SCH ×2 (09:14→14:33)
[2017-02-08] MEDS: carBAMAZepine SUSP 20 MG/ML POSYG NGT SCH (09:15)
[2017-02-08] MEDS: AMANTADINE 100 MG/10 ML POSYR GTB SCH ×2 (09:15→21:05)
--- NOTE | 2017-02-08 09:28 | CONS ---
Date/Time of Note Date/Time of Note DATE: 02/08/17 TIME: 09:26 Consult Date/Type/Reason Admit Date/Time Dec 31, 2016 at 00:30 Initial Consult Date 12/31/16 Type of Consultation: Pulmonary Ordering Provider: JEAN MARIE BRAGG MD Subjective Remains stable on mechanical ventilation. Intermittent agitation. Currently not on any drips. Objective Vital Signs Date Time Temp Pulse Resp B/P Pulse Ox O2 Delivery O2 Flow Rate FiO2 02/08/17 07:00 71 15 129/83 100 02/08/17 06:00 Mechanical Ventilator 02/08/17 05:10 30 02/08/17 04:00 98.4 Intake and Output 02/07/17 02/07/17 02/08/17 15:00 23:00 07:00 Intake Total 1225 ml 754 ml 1800 ml Output Total 1100 ml 1850 ml 1200 ml Balance 125 ml -1096 ml 600 ml Exam GENERAL: Well-nourished well-developed gentleman on mechanical ventilation via tracheostomy VITAL SIGNS: per chart NECK: Supple. No JVD or lymphadenopathy. CARDIAC EXAM: S1, S2. No added sounds or murmurs. CHEST: Diminished air entry bilaterally with rales right base. ABDOMEN: Soft, nontender. No guarding or rebound. EXTREMITIES: No cyanosis, clubbing or edema. NEUROLOGIC: Generalized weakness. No focal deficits. Results/Medications Result Diagram: 02/08/17 0500 02/08/17 0500 Results 24 hrs Laboratory Tests Test 02/08/17 05:00 White Blood Count 6.0 Red Blood Count 3.25 L Hemoglobin 9.0 L Hematocrit 28.5 L Mean Corpuscular Volume 87.7 Mean Corpuscular Hemoglobin 27.7 L Mean Corpuscular Hemoglobin Concent 31.6 L Red Cell Distribution Width 14.3 Platelet Count 389 Mean Platelet Volume 11.9 H Neutrophils % 60.6 Lymphocytes % 22.7 Monocytes % 9.1 Eosinophils % 6.1 Basophils % 0.8 Nucleated Red Blood Cells % 0.0 Neutrophils # 3.7 Lymphocytes # 1.4 Monocytes # 0.6 Eosinophils # 0.4 Basophils # 0.1 Nucleated Red Blood Cells # 0.0 Sodium Level 143 Potassium Level 3.7 Chloride Level 105 Carbon Dioxide Level 28 Anion Gap 14 Blood Urea Nitrogen 6 L Creatinine 0.65 Glucose Level 105 Calcium Level 9.1 Total Bilirubin 0.1 L Direct Bilirubin 0.00 Indirect Bilirubin 0.1 Aspartate Amino Transf (AST/SGOT) 36 Alanine Aminotransferase (ALT/SGPT) 111 H Alkaline Phosphatase 215 H Ammonia 28 Total Protein 6.8 Albumin 3.3 Globulin 3.50 H Albumin/Globulin Ratio 0.94 Medications Current Medications Acetaminophen (Tylenol Tab) 650 mg Q4H PRN PO pain/fever Last administered on 02/05/17 08:01; Admin Dose 650 MG; Start 12/31/16 at 01:00 Hydralazine HCl (Apresoline) 25 mg Q6H PRN PO sbp>160; Start 12/31/16 at 01:00 Enalaprilat (Vasotec Iv) 1.25 mg Q6H PRN IV sbp>160; Start 12/31/16 at 01:00 Ondansetron HCl (Zofran Inj) 4 mg Q4H PRN IV nausea; Start 12/31/16 at 01:00 Hydralazine HCl (Apresoline) 10 mg Q4H PRN IV ELEVATED SYSTOLIC BP Last administered on 02/01/17 22:10; Admin Dose 10 MG; Start 12/31/16 at 05:30 IV Flush (NS 10 ml) 10 ml PRN PRN IV IV PROTOCOL; Start 01/02/17 at 17:00 Lorazepam (Ativan) 2 mg Q2H PRN IV PRN Agitation. Last administered on 13:24; Admin Dose 2 MG; Start 01/04/17 at 09:00 Carbamazepine (Tegretol Susp (Ped)) 400 mg BID NGT Last administered on 21:27; Admin Dose 400 MG; Start 01/22/17 at 21:00 Lansoprazole (Prevacid) 30 mg BID@06,18 NGT Last administered on 02/08/17 06: 49; Admin Dose 30 MG; Start 01/24/17 at 18:00 Docusate Sodium (Colace Liquid Cup) 100 mg BID NGT Last administered on 09:33; Admin Dose 100 MG; Start 01/25/17 at 21:00 Quetiapine Fumarate 200 mg 200 mg Q6 NGT Last administered on 02/08/17 06:49 ; Admin Dose 200 MG; Start 01/27/17 at 12:00 Dextrose/Sodium Chloride (D5-1/2ns) 1,000 ml @ 75 mls/hr [id number] IV Last administered on 02/07/17 19:00; Admin Dose 75 MLS/HR; Start 01/27/17 at 09:30 Propranolol HCl (Inderal Iv) 2 mg BID IV Last administered on 02/07/17 21:28 ; Admin Dose 2 MG; Start 02/01/17 at 17:00 Dantrolene Sodium (Dantrium) 25 mg TID PO Last administered on 02/07/17 21:29 ; Admin Dose 25 MG; Start 02/01/17 at 18:00 Bromocriptine Mesylate (Parlodel) 2.5 mg TID PO Last administered on 21:28; Admin Dose 2.5 MG; Start 02/01/17 at 21:00 Amantadine HCl 200 mg 200 mg BID GTB Last administered on 02/07/17 21:27; Admin Dose 200 MG; Start 02/01/17 at 18:00 Levofloxacin/ Dextrose (Levaquin 750 Mg/ D5W 150 ml (Pmx)) 150 ml @ 100 mls/hr Q24H IVPB Last administered on 02/07/17 11:15; Admin Dose 100 MLS/HR; Start 02/04/17 at 11:00 Amikacin Sulfate AMIKACIN PER PHARMACY NOTE XX ; Start 02/04/17 at 10:00 Amikacin Sulfate/ Dextrose (Amikacin/D5W) 104 ml @ 102 mls/hr Q24H IVPB Last administered on 02/07/17 12:57; Admin Dose 102 MLS/HR; Start 02/04/17 at 12: 00 Diphenhydramine HCl (Benadryl) 50 mg Q4H PRN IV sedation Last administered on 02/07/17 13:24; Admin Dose 50 MG; Start 02/05/17 at 07:00 Thiamine HCl (Vitamin B1) 100 mg DAILY NGT Last administered on 02/07/17 09: 33; Admin Dose 100 MG; Start 02/05/17 at 09:30 Assessment/Plan Chief Complaint/Hosp Course IMP: 1. Hypoxic respiratory failure/Vent Dependence/failure to wean. Now with tracheostomy and mechanical ventilation 2. Acute Lung Injury/ARDS, clinically resolved. 3. History of drug overdose 4. 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 Significant improvement with treatment of NMS 5. ALEX 6. Anemia, likely of chronic disease RECS: 1. Status post tracheostomy and PEG. 2. Continue current vent settings for now 3. Tube feeds/Free H20 4. Minimize sedatives as tolerated 5. Continue antipsychotics continues treatment for NMS Stable for transfer to telemetry floor. Problems: BRIANNA SAAVEDRA MD, [facility] Feb 08, 2017 09:28
--- NOTE | 2017-02-08 09:46 | PN ---
Date/Time of Note Date/Time of Note DATE: 02/08/17 TIME: 09:04 Assessment/Plan VTE Prophylaxis VTE Prophylaxis Intervention: SCD's Lines/Catheters IV Catheter Type (from Nrs): PICC Line Central line still needed: Yes (IV access ) Urinary Cath still in place: Yes Reason Cath still needed: other (indicate) (on vent ) Assessment/Plan Assessment/Plan 46 yo male with: 1. Severe encephalopathy 2ry to drug abuse likely Bath salts and/or synthetic marijuana and also bipolar disorder with violent behaviors and noncompliance with medications per previous psychiatry notes. Now possibility of neuroleptic malignant syndrome secondary to medication interactions. Patient even more awake today and following commands, less vent requirement. OFF Ativan, fentanyl and propofol x 7 days almost. Stable for transfer to [facility] today and OK to transfer [facility] Telemetry bed today CT head 3 since admission are both wnl, EEG x2 showing encephalopathy, MRI brain x1 wnl. RPR negative and Ammonia level wnl again today. S/p Tracheostomy and PEG tube placement On Inderal, bromocriptine, amantadine, dantrolene, propanolol for NMS treatment for 7 more days to complete total of 14 days On Seroquel and Tegretol for psych Thiamine po. 2. Acute respiratory Failure 2ry to severe Encephalopathy from Drug overuse, intubated, sedated and paralysed. Patient was briefly extubated last week for 2 -1/2 hours but had to be reintubated due to inability to protect his airway, of note he was still on sedating agents. WBC within normal now and chest x-ray has been better but with compressive atelectasis. On treatment for tracheobronchitis with Levaquin Still on FiO2 of 30% and PEEP of 5. Status post tracheostomy 3. Bipolar disorder: Likely noncompliant with psychiatric medications. Medication resumed and adjusted to outpatient dosing based on the note from psychiatry 5 days prior to admission that were able to obtain last Wednesday, patient Seroquel can even be titrated higher, according to the notes he was on Seroquel XR, increased to 1000 mg nightly per the latest note. On Seroquel 200 mg QID and Carbamazepine to 400 mg twice daily. Again per the girlfriend it is very likely that the patient was not fully compliant. Also talked to Joel yesterday, very familiar with this patient at the [facility], patient again runs manic and is always agitated at baseline this is despite the multiple medications he has been prescribed as an outpatient, unclear if just difficult to control versus noncompliant. Will need Psych Eval at [place] 4. Right foot Lisfranc fracture on admission : Pain control 5. Anemia: Hemoglobin stable at approx 9.0, status post 1 unit pRBC on 01/15. SCDs to lower extremities. Continue proton pump inhibitors. Tolerating tube feedings. 6. Fevers: Afebrile, sputum culture with multiple organisms including Staphylococcus aureus MSSA, Klebsiella pneumoniae, Enterobacter cloacae. Continue Levaquin for respiratory pathogens and amikacin for MDR Klebsiella pneumoniae UTI and trating for total of 10 to 14 days. New Lewis catheter as of 02/04, d/c as soon as possible Contact isolation Prophylaxis: SCDs for DVT prophylaxis, Protonix for GI prophylaxis Disposition: Transfer to tele and per all consultants OK to transfer to [facility] bed He is a bipolar that seems to be mostly manic most of the time and noncompliant with medications at all. Drug use is an issue. Needs Psych eval I have discussed the patient's current clinical status and need for psychiatric assistance with Joel at the [facility] (# [phone]) that patient attends Appreciate recommendations from Dr. John, to complete treatment for NMS for 7 more days. Jayda, the patient's 1/2 sister has made us understand that she will not be involved in the primary caregiving of patient and he will need to be placed at the time of discharge no matter what his condition. Subjective 24 Hr Interval Summary Free Text/Dictation Patient much more awake and following simple commands On treatment for UTI and tracheobronchitis, Exam/Review of Systems Vital Signs Vitals Vital Signs Date Time Temp Pulse Resp B/P Pulse Ox O2 Delivery O2 Flow Rate FiO2 02/08/17 07:00 71 15 129/83 100 02/08/17 06:00 Mechanical Ventilator 02/08/17 05:10 30 02/08/17 04:00 98.4 Intake and Output 02/07/17 02/07/17 02/08/17 15:00 23:00 07:00 Intake Total 1225 ml 754 ml 1800 ml Output Total 1100 ml 1850 ml 1200 ml Balance 125 ml -1096 ml 600 ml Exam Constitutional: alert, oriented (x2) Respiratory: clear to auscultation, normal air movement Cardiovascular: nl pulses, regular rate and rhythm Gastrointestinal: non-tender, other (tolerating tube feedings), soft Musculoskeletal: nl extremities to inspection Extremities: normal pulses, other (no edema ) Neurological: CLASSIFYING MACHINE OPERATOR II-XII intact, other (trached ) Results Result Diagram: 02/08/17 0500 02/08/17 0500 Results 24 hrs Laboratory Tests Test 02/08/17 05:00 White Blood Count 6.0 Red Blood Count 3.25 L Hemoglobin 9.0 L Hematocrit 28.5 L Mean Corpuscular Volume 87.7 Mean Corpuscular Hemoglobin 27.7 L Mean Corpuscular Hemoglobin Concent 31.6 L Red Cell Distribution Width 14.3 Platelet Count 389 Mean Platelet Volume 11.9 H Neutrophils % 60.6 Lymphocytes % 22.7 Monocytes % 9.1 Eosinophils % 6.1 Basophils % 0.8 Nucleated Red Blood Cells % 0.0 Neutrophils # 3.7 Lymphocytes # 1.4 Monocytes # 0.6 Eosinophils # 0.4 Basophils # 0.1 Nucleated Red Blood Cells # 0.0 Sodium Level 143 Potassium Level 3.7 Chloride Level 105 Carbon Dioxide Level 28 Anion Gap 14 Blood Urea Nitrogen 6 L Creatinine 0.65 Glucose Level 105 Calcium Level 9.1 Total Bilirubin 0.1 L Direct Bilirubin 0.00 Indirect Bilirubin 0.1 Aspartate Amino Transf (AST/SGOT) 36 Alanine Aminotransferase (ALT/SGPT) 111 H Alkaline Phosphatase 215 H Ammonia 28 Total Protein 6.8 Albumin 3.3 Globulin 3.50 H Albumin/Globulin Ratio 0.94 Medications Medications Current Medications Acetaminophen (Tylenol Tab) 650 mg Q4H PRN PO pain/fever Last administered on 02/05/17 08:01; Admin Dose 650 MG; Start 12/31/16 at 01:00 Hydralazine HCl (Apresoline) 25 mg Q6H PRN PO sbp>160; Start 12/31/16 at 01:00 Enalaprilat (Vasotec Iv) 1.25 mg Q6H PRN IV sbp>160; Start 12/31/16 at 01:00 Ondansetron HCl (Zofran Inj) 4 mg Q4H PRN IV nausea; Start 12/31/16 at 01:00 Hydralazine HCl (Apresoline) 10 mg Q4H PRN IV ELEVATED SYSTOLIC BP Last administered on 02/01/17 22:10; Admin Dose 10 MG; Start 12/31/16 at 05:30 IV Flush (NS 10 ml) 10 ml PRN PRN IV IV PROTOCOL; Start 01/02/17 at 17:00 Lorazepam (Ativan) 2 mg Q2H PRN IV PRN Agitation. Last administered on 13:24; Admin Dose 2 MG; Start 01/04/17 at 09:00 Carbamazepine (Tegretol Susp (Ped)) 400 mg BID NGT Last administered on 21:27; Admin Dose 400 MG; Start 01/22/17 at 21:00 Lansoprazole (Prevacid) 30 mg BID@06,18 NGT Last administered on 02/08/17 06: 49; Admin Dose 30 MG; Start 01/24/17 at 18:00 Docusate Sodium (Colace Liquid Cup) 100 mg BID NGT Last administered on 09:33; Admin Dose 100 MG; Start 01/25/17 at 21:00 Quetiapine Fumarate 200 mg 200 mg Q6 NGT Last administered on 02/08/17 06:49 ; Admin Dose 200 MG; Start 01/27/17 at 12:00 Dextrose/Sodium Chloride (D5-1/2ns) 1,000 ml @ 75 mls/hr [id number] IV Last administered on 02/07/17 19:00; Admin Dose 75 MLS/HR; Start 01/27/17 at 09:30 Propranolol HCl (Inderal Iv) 2 mg BID IV Last administered on 02/07/17 21:28 ; Admin Dose 2 MG; Start 02/01/17 at 17:00 Dantrolene Sodium (Dantrium) 25 mg TID PO Last administered on 02/07/17 21:29 ; Admin Dose 25 MG; Start 02/01/17 at 18:00 Bromocriptine Mesylate (Parlodel) 2.5 mg TID PO Last administered on 21:28; Admin Dose 2.5 MG; Start 02/01/17 at 21:00 Amantadine HCl 200 mg 200 mg BID GTB Last administered on 02/07/17 21:27; Admin Dose 200 MG; Start 02/01/17 at 18:00 Levofloxacin/ Dextrose (Levaquin 750 Mg/ D5W 150 ml (Pmx)) 150 ml @ 100 mls/hr Q24H IVPB Last administered on 02/07/17 11:15; Admin Dose 100 MLS/HR; Start 02/04/17 at 11:00 Amikacin Sulfate AMIKACIN PER PHARMACY NOTE XX ; Start 02/04/17 at 10:00 Amikacin Sulfate/ Dextrose (Amikacin/D5W) 104 ml @ 102 mls/hr Q24H IVPB Last administered on 02/07/17 12:57; Admin Dose 102 MLS/HR; Start 02/04/17 at 12: 00 Diphenhydramine HCl (Benadryl) 50 mg Q4H PRN IV sedation Last administered on 02/07/17 13:24; Admin Dose 50 MG; Start 02/05/17 at 07:00 Thiamine HCl (Vitamin B1) 100 mg DAILY NGT Last administered on 02/07/17 09: 33; Admin Dose 100 MG; Start 02/05/17 at 09:30 TRENT NEWMAN Feb 08, 2017 09:14
[2017-02-08] MEDS: LEVOFLOXACIN 750MG/D5W (PMX) 150 ML IVPB SCH (10:34)
--- NOTE | 2017-02-08 11:08 | PN ---
Date/Time of Note Date/Time of Note DATE: 02/08/17 TIME: 11:08 Assessment/Plan Lines/Catheters IV Catheter Type (from Nrsg): PICC Line Lewis in Place (from Nrsg): Yes Assessment/Plan Chief Complaint/Hosp Course IMPRESSION: Respiratory failure. SP SP tracheostomy continue vent support Discussed with the nursing staff. Problems: Subjective 24 Hr Interval Summary Constitutional: improved Pain Control: mild Exam/Review of Systems Vital Signs Vitals Vital Signs Date Time Temp Pulse Resp B/P Pulse Ox O2 Delivery O2 Flow Rate FiO2 02/08/17 10:00 98.1 76 17 156/96 100 Mechanical Ventilator 02/08/17 05:10 30 Intake and Output 02/07/17 02/07/17 02/08/17 14:59 22:59 06:59 Intake Total 1300 ml 754 ml 1800 ml Output Total 1100 ml 1700 ml 1150 ml Balance 200 ml -946 ml 650 ml Exam ENMT: mucosa pink and moist, nl external ears & nose, nl lips & teeth, nl nasal mucosa & septum Neck: non-tender, supple Respiratory: clear to auscultation, normal air movement Cardiovascular: nl pulses, regular rate and rhythm Gastrointestinal: nl liver, spleen, non-tender, soft Results Result Diagram: 02/08/17 0500 02/08/17 0500 JOSE GUAJARDO MD Feb 08, 2017 11:08
[2017-02-08] MEDS: LORAZEPAM 2 MG INJ IV PRN ×2 (11:37→21:07)
[2017-02-08] MEDS: NYSTATIN 30 GM POWDER BTL TOP SCH ×2 (11:49→21:08)
[2017-02-08] MEDS ORDERED: LEVETIRACETAM 1000 MG (PMX) 100 ML IVPB ONE (12:00)
[2017-02-08] MEDS: AMIKACIN 1,000 MG in DEXTROSE 5% 100 ML IVPB SCH (12:24)
[2017-02-08] MEDS: DIPHENHYDRAMINE 50 MG INJ IV PRN (18:00)
[2017-02-08] MEDS: LEVETIRACETAM 500 MG (PMX) 100 ML IVPB SCH (21:06)
[2017-02-09] VITALS (33 sets, daily range): BP systolic 92–122; BP diastolic 57–84; PULSE 69–93; RESP 14–31
[2017-02-09] MEDS: DANTROLENE 25 MG CAP PO SCH ×4 (00:30→21:19)
[2017-02-09] MEDS: carBAMAZepine SUSP 20 MG/ML POSYG NGT SCH ×3 (00:31→23:26)
[2017-02-09] MEDS: QUETIAPINE 100 MG TAB NGT SCH ×5 (01:04→23:26)
[2017-02-09] MEDS: ALBUTEROL HFA 8 GM INHALER INH SCH ×4 (01:40→19:29)
[2017-02-09] MEDS: IPRATROPIUM (HFA) 12.9 GM INHALER INH SCH ×4 (01:40→19:29)
[2017-02-09] MEDS: DIPHENHYDRAMINE 50 MG INJ IV PRN (04:27)
[2017-02-09] MEDS: LANSOPRAZOLE 30 MG CAP NGT SCH ×2 (06:28→18:30)
[2017-02-09 07:27] LABS: BASOPHIL # 0.1 10^3/ul (0.0-0.1); BASOPHILS % 1.2 % (0.0-2.0); EOSINOPHILS # 0.4 10^3/ul (0.0-0.5); EOSINOPHILS % 7.5 % (0.0-7.0); HEMATOCRIT 26.5 % (42.0-52.0); HEMOGLOBIN 8.5 g/dl (14.0-18.0); LYMPHOCYTES # 1.1 10^3/ul (0.8-2.9); LYMPHOCYTES % 21.3 % (15.0-51.0); MEAN CORPUSCULAR HEMOGLOBIN 28.2 pg (29.0-33.0); MEAN CORPUSCULAR HGB CONC 32.1 g/dl (32.0-37.0); MEAN PLATELET VOLUME 11.5 fl (7.4-10.4); MONOCYTE # 0.5 10^3/ul (0.3-0.9); MONOCYTES % 10.2 % (0.0-11.0); NEUTROPHIL # 3.1 10^3/ul (1.6-7.5); NEUTROPHILS % 59.2 % (39.0-77.0); PLATELET COUNT 365 10^3/UL (140-415); RED BLOOD COUNT 3.01 10^6/ul (4.70-6.10); RED CELL DISTRIBUTION WIDTH 14.8 % (11.5-14.5); WHITE BLOOD COUNT 5.2 10^3/ul (4.8-10.8)
--- NOTE | 2017-02-09 07:48 | PN ---
Date/Time of Note Date/Time of Note DATE: 02/09/17 TIME: 07:47 Assessment/Plan Lines/Catheters IV Catheter Type (from Nrsg): PICC Line Lewis in Place (from Nrsg): Yes Assessment/Plan Chief Complaint/Hosp Course IMPRESSION: Respiratory failure. SP SP tracheostomy continue vent support Discussed with the nursing staff. Problems: Subjective 24 Hr Interval Summary Constitutional: improved Pain Control: mild Exam/Review of Systems Vital Signs Vitals Vital Signs Date Time Temp Pulse Resp B/P Pulse Ox O2 Delivery O2 Flow Rate FiO2 02/09/17 06:00 22 113/74 100 Mechanical Ventilator 02/09/17 05:55 91 30 02/09/17 04:00 98.3 Intake and Output 02/08/17 02/08/17 02/09/17 15:00 23:00 07:00 Intake Total 1434 ml 725 ml 550 ml Output Total 1100 ml 1750 ml 750 ml Balance 334 ml -1025 ml -200 ml Exam Neck: non-tender, supple Respiratory: clear to auscultation, normal air movement Cardiovascular: nl pulses, regular rate and rhythm Results Result Diagram: 02/09/17 0712 02/08/17 0500 JOSE GUAJARDO MD Feb 09, 2017 07:48
[2017-02-09 07:55] LABS: ALBUMIN 3.2 g/dl (3.3-4.9); BILIRUBIN,INDIRECT 0.1 mg/dl (0-1.1); BILIRUBIN,TOTAL 0.1 mg/dl (0.2-1.3); CALCIUM 8.5 mg/dl (8.4-10.2); CREATININE 0.61 mg/dl (0.61-1.24); POTASSIUM 3.3 mmol/L (3.5-5.1); TOTAL PROTEIN 6.4 g/dl (6.1-8.1)
[2017-02-09 08:03] LABS: PHOSPHORUS 4.9 mg/dl (2.5-4.9)
[2017-02-09] MEDS: NYSTATIN 30 GM POWDER BTL TOP SCH ×2 (08:42→21:29)
[2017-02-09] MEDS: DOCUSATE SODIUM 10 MG/ML (10ML CUP) NGT SCH ×2 (08:42→21:19)
[2017-02-09] MEDS: LEVETIRACETAM 500 MG (PMX) 100 ML IVPB SCH (09:06)
[2017-02-09] MEDS: THIAMINE 100 MG TAB NGT SCH (09:06)
[2017-02-09] MEDS: LORAZEPAM 2 MG INJ IV PRN ×2 (09:06→15:58)
[2017-02-09] MEDS: BROMOCRIPTINE 2.5 MG TAB PO SCH ×3 (09:06→23:25)
[2017-02-09] MEDS: PROPRANOLOL 1 MG INJ IV SCH ×2 (09:07→21:19)
--- NOTE | 2017-02-09 09:40 | PN ---
Date/Time of Note Date/Time of Note DATE: 02/09/17 TIME: 09:29 Assessment/Plan VTE Prophylaxis VTE Prophylaxis Intervention: SCD's Lines/Catheters IV Catheter Type (from Nrs): PICC Line Central line still needed: Yes (For IV access) Urinary Cath still in place: Yes Reason Cath still needed: other (indicate) (While still agitated occasionally) Assessment/Plan Assessment/Plan 46 yo male with: 1. Seizure, no previous history, one episode yesterday, likely related to medication withdrawal including benzodiazepines and Depakote and other medication patient has been on for almost a month. No further seizures. Keppra has been added, he was loaded with 1 g then 500 mg twice daily since it is being used as an adjuvant currently, EEG has been ordered. Patient already had an ample number of imaging done including a recent CAT scan of the brain which was negative. RPR is negative 2. Severe encephalopathy 2ry to drug abuse likely Bath salts and/or synthetic marijuana and also bipolar disorder with violent behaviors and noncompliance with medications per previous psychiatry notes. Now possibility of neuroleptic malignant syndrome secondary to medication interactions. Patient even more awake today and following commands, less vent requirement. OFF Ativan, fentanyl and propofol x 7 days. Patient had a seizure yesterday, EEG was ordered, he has been started on Keppra in addition of his carbamazepine he already is on. No further seizures since then. Stable for transfer to Tele today and OK to transfer asif [facility] Telemetry bed or ICU today. Patient will need to be on contact isolation and will need a one-to-one sitter CT head 3 since admission are both wnl, EEG x2 showing encephalopathy, MRI brain x1 wnl. RPR negative and Ammonia level wnl again today. S/p Tracheostomy and PEG tube placement On Inderal, bromocriptine, amantadine, dantrolene, propanolol for NMS treatment for 7 more days to complete total of 14 days On Seroquel and Tegretol for psych. Keppra added given episode of seizure Thiamine po. 3. Acute respiratory Failure 2ry to severe Encephalopathy from Drug overuse, intubated, sedated and paralysed. Patient was briefly extubated last week for 2 -1/2 hours but had to be reintubated due to inability to protect his airway, of note he was still on sedating agents. WBC within normal now and chest x-ray has been better but with compressive atelectasis. On treatment for tracheobronchitis with Levaquin Still on FiO2 of 30% and PEEP of 5. Status post tracheostomy 4. Bipolar disorder: Likely noncompliant with psychiatric medications. Medication resumed and adjusted to outpatient dosing based on the note from psychiatry 5 days prior to admission that were able to obtain last Wednesday, patient Seroquel can even be titrated higher, according to the notes he was on Seroquel XR, increased to 1000 mg nightly per the latest note. On Seroquel 200 mg QID and Carbamazepine to 400 mg twice daily. Again per the girlfriend it is very likely that the patient was not fully compliant. Also talked to Joel yesterday, very familiar with this patient at the [facility], patient again runs manic and is always agitated at baseline this is despite the multiple medications he has been prescribed as an outpatient, unclear if just difficult to control versus noncompliant. Will need Psych Eval at [facility] 5. Right foot Lisfranc fracture on admission : Pain control 6. Anemia: Hemoglobin stable at approx 9.0, status post 1 unit pRBC on 01/15. SCDs to lower extremities. Continue proton pump inhibitors. Tolerating tube feedings. 7. Tracheobronchitis and UTI: afebrile, sputum culture with multiple organisms including Staphylococcus aureus MSSA, Klebsiella pneumoniae, Enterobacter cloacae. Continue Levaquin for respiratory pathogens and amikacin for MDR Klebsiella pneumoniae UTI and trating for total of 10 to 14 days. New Lewis catheter as of 02/04, d/c as soon as possible Contact isolation Prophylaxis: SCDs for DVT prophylaxis, Protonix for GI prophylaxis Disposition: Transfer to tele and per all consultants OK to transfer to [facility] Tele bed versus ICU bed He is a bipolar that seems to be mostly manic most of the time and noncompliant with medications at all. Drug use is an issue. Needs Psych eval I have discussed the patient's current clinical status and need for psychiatric assistance with Joel at the [facility] (# [phone]) that patient attends Appreciate recommendations from Dr. John, to complete treatment for NMS for 7 more days. Jayda, the patient's 1/2 sister has made us understand that she will not be involved in the primary caregiving of patient and he will need to be placed at the time of discharge no matter what his condition. Subjective 24 Hr Interval Summary Free Text/Dictation Patient yesterday around midday had an episode of seizure, the first one witnessed since he is a prolonged stay, it was aborted with Ativan quickly, he was briefly postictal, after discussion with palliative care, it was assumed that it is safe to start him on Keppra. He was loaded with 1 g followed by 500 mg IV twice daily, I will switch it to oral dosing. Still planning to transfer. Exam/Review of Systems Vital Signs Vitals Vital Signs Date Time Temp Pulse Resp B/P Pulse Ox O2 Delivery O2 Flow Rate FiO2 02/09/17 08:19 30 02/09/17 08:11 Mechanical Ventilator 02/09/17 06:00 22 113/74 100 02/09/17 05:55 91 02/09/17 04:00 98.3 Intake and Output 02/08/17 02/08/17 02/09/17 15:00 23:00 07:00 Intake Total 1434 ml 1175 ml 1075 ml Output Total 1100 ml 1750 ml 750 ml Balance 334 ml -575 ml 325 ml Exam Constitutional: alert, oriented (x2), well developed Respiratory: clear to auscultation, other (Tracheostomy in place, on mechanical ventilation) Cardiovascular: nl pulses, regular rate and rhythm Gastrointestinal: non-tender, other (G-tube in place, tube feeding tolerated.) , soft Musculoskeletal: nl extremities to inspection, nl gait and stance Extremities: normal pulses 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, confused (At times but mostly lucid and following commands), nl mental status Results Result Diagram: 02/09/1771102/09/17711 Results 24 hrs Laboratory Tests Test 02/09/17 06:58 02/09/17 07:12 Lab Scanned Report REFERENCE LAB White Blood Count 5.2 Red Blood Count 3.01 L Hemoglobin 8.5 L Hematocrit 26.5 L Mean Corpuscular Volume 88.0 Mean Corpuscular Hemoglobin 28.2 L Mean Corpuscular Hemoglobin Concent 32.1 Red Cell Distribution Width 14.8 H Platelet Count 365 Mean Platelet Volume 11.5 H Neutrophils % 59.2 Lymphocytes % 21.3 Monocytes % 10.2 Eosinophils % 7.5 H Basophils % 1.2 Nucleated Red Blood Cells % 0.0 Neutrophils # 3.1 Lymphocytes # 1.1 Monocytes # 0.5 Eosinophils # 0.4 Basophils # 0.1 Nucleated Red Blood Cells # 0.0 Sodium Level 140 Potassium Level 3.3 L Chloride Level 104 Carbon Dioxide Level 27 Anion Gap 12 Blood Urea Nitrogen 7 Creatinine 0.61 Glucose Level 290 #H Calcium Level 8.5 Phosphorus Level 4.9 Magnesium Level 2.0 Total Bilirubin 0.1 L Direct Bilirubin 0.00 Indirect Bilirubin 0.1 Aspartate Amino Transf (AST/SGOT) 37 Alanine Aminotransferase (ALT/SGPT) 105 H Alkaline Phosphatase 188 H Total Protein 6.4 Albumin 3.2 L Globulin 3.20 Albumin/Globulin Ratio 1.00 Medications Medications Current Medications Acetaminophen (Tylenol Tab) 650 mg Q4H PRN PO pain/fever Last administered on 02/05/17 08:01; Admin Dose 650 MG; Start 12/31/16 at 01:00 Hydralazine HCl (Apresoline) 25 mg Q6H PRN PO sbp>160; Start 12/31/16 at 01:00 Enalaprilat (Vasotec Iv) 1.25 mg Q6H PRN IV sbp>160; Start 12/31/16 at 01:00 Ondansetron HCl (Zofran Inj) 4 mg Q4H PRN IV nausea; Start 12/31/16 at 01:00 Hydralazine HCl (Apresoline) 10 mg Q4H PRN IV ELEVATED SYSTOLIC BP Last administered on 02/01/17 22:10; Admin Dose 10 MG; Start 12/31/16 at 05:30 IV Flush (NS 10 ml) 10 ml PRN PRN IV IV PROTOCOL; Start 01/02/17 at 17:00 Lorazepam (Ativan) 2 mg Q2H PRN IV PRN Agitation. Last administered on 09:06; Admin Dose 2 MG; Start 01/04/17 at 09:00 Carbamazepine (Tegretol Susp (Ped)) 400 mg BID NGT Last administered on 00:31; Admin Dose 400 MG; Start 01/22/17 at 21:00 Lansoprazole (Prevacid) 30 mg BID@06,18 NGT Last administered on 02/09/17 06: 28; Admin Dose 30 MG; Start 01/24/17 at 18:00 Docusate Sodium (Colace Liquid Cup) 100 mg BID NGT Last administered on 09:13; Admin Dose 100 MG; Start 01/25/17 at 21:00 Quetiapine Fumarate 200 mg 200 mg Q6 NGT Last administered on 02/09/17 06:28 ; Admin Dose 200 MG; Start 01/27/17 at 12:00 Dextrose/Sodium Chloride (D5-1/2ns) 1,000 ml @ 75 mls/hr [id number] IV Last administered on 02/08/17 17:42; Admin Dose 75 MLS/HR; Start 01/27/17 at 09:30 Propranolol HCl (Inderal Iv) 2 mg BID IV Last administered on 02/09/17 09:07 ; Admin Dose 2 MG; Start 02/01/17 at 17:00 Dantrolene Sodium (Dantrium) 25 mg TID PO Last administered on 02/09/17 09:06 ; Admin Dose 25 MG; Start 02/01/17 at 18:00 Bromocriptine Mesylate (Parlodel) 2.5 mg TID PO Last administered on 09:06; Admin Dose 2.5 MG; Start 02/01/17 at 21:00 Amantadine HCl 200 mg 200 mg BID GTB Last administered on 02/08/17 21:05; Admin Dose 200 MG; Start 02/01/17 at 18:00 Levofloxacin/ Dextrose (Levaquin 750 Mg/ D5W 150 ml (Pmx)) 150 ml @ 100 mls/hr Q24H IVPB Last administered on 02/08/17 10:34; Admin Dose 100 MLS/HR; Start 02/04/17 at 11:00 Amikacin Sulfate AMIKACIN PER PHARMACY NOTE XX ; Start 02/04/17 at 10:00 Amikacin Sulfate/ Dextrose (Amikacin/D5W) 104 ml @ 102 mls/hr Q24H IVPB Last administered on 02/08/17 12:24; Admin Dose 102 MLS/HR; Start 02/04/17 at 12: 00 Diphenhydramine HCl (Benadryl) 50 mg Q4H PRN IV sedation Last administered on 02/09/17 04:27; Admin Dose 50 MG; Start 02/05/17 at 07:00 Thiamine HCl (Vitamin B1) 100 mg DAILY NGT Last administered on 02/09/17 09: 06; Admin Dose 100 MG; Start 02/05/17 at 09:30 Nystatin 1 applic 1 applic BID TOP Last administered on 02/09/17 08:42; Admin Dose 1 APPLIC; Start 02/08/17 at 11:00 Levetiracetam (Keppra 500 Mg/ 100ml (Pmx)) 100 ml @ 400 mls/hr Q12 IVPB Last administered on 02/09/17 09:06; Admin Dose 400 MLS/HR; Start 02/08/17 at 21: 00 TRENT NEWMAN Feb 09, 2017 09:39
[2017-02-09] MEDS: AMANTADINE 100 MG/10 ML POSYR GTB SCH ×2 (09:46→21:18)
[2017-02-09] MEDS ORDERED: POTASSIUM CHLORIDE 20 MEQ POWDER FOR ORAL SOLN PO ONE (10:00)
[2017-02-09] MEDS: LEVOFLOXACIN 750 MG TABLET NGT SCH (11:24)
[2017-02-09] MEDS: AMIKACIN 1,000 MG in DEXTROSE 5% 100 ML IVPB SCH (11:25)
[2017-02-09] MEDS: DEXTROSE 5%-0.45% NACL 1,000 ML IV SCH (11:26)
--- NOTE | 2017-02-09 12:59 | CONS ---
Date/Time of Note Date/Time of Note DATE: 02/09/17 TIME: 12:57 Assessment/Plan Assessment/Plan Chief Complaint/Hosp Course dictated # [id number] Problems: Additional Assessment/Plan Assessment and recommendations; 1. Patient admitted with respiratory failure due to multidrug overdose ultimately requiring a tracheostomy and G-tube. Patient has shown significant clinical improvement. 2. Bilateral pneumonia and UTI. 2. Markedly improved agitation and improvement in mental status. Continue current treatment. Consider transfer to telemetry unit. Initiate weaning from ventilator as tolerated. Consultation Date/Type/Reason Admit Date/Time Dec 31, 2016 at 00:30 Initial Consult Date 12/31/16 Type of Consultation: Pulmonary Referring Provider: JEAN MARIE BRAGG MD 24 HR Interval Summary Free Text/Dictation Patient condition remains stable. Patient not exhibiting any further agitation. Has remained hemodynamically stable. General exam; middle-aged male, on ventilator via tracheostomy currently in no distress. Awake and alert. Exam/Review of Systems Vital Signs Vitals Vital Signs Date Time Temp Pulse Resp B/P Pulse Ox O2 Delivery O2 Flow Rate FiO2 02/09/17 12:46 98.2 02/09/17 12:02 30 02/09/17 11:58 Mechanical Ventilator 02/09/17 11:30 72 20 100 02/09/17 11:00 103/66 Intake and Output 02/08/17 02/08/17 02/09/17 14:59 22:59 06:59 Intake Total 1309 ml 1225 ml 1200 ml Output Total 1100 ml 1850 ml 850 ml Balance 209 ml -625 ml 350 ml Exam HEENT exam; supple neck, no JVD. No lymphadenopathy. Midline trachea. No thyromegaly. Tracheostomy in place. Patient has fair dentition. Chest exam; diminished but clear breath sounds. S1-S2 audible, no murmurs. Regular rhythm. Abdomen exam; soft, nondistended. No organomegaly. Bowel sounds audible. G- tube in place. Extremity exam; no edema. [employer]ER exam; no focal motor deficit. Results Result Diagram: 02/09/17 0712 02/09/17 0712 Results 24 hrs Laboratory Tests Test 02/09/17 06:58 02/09/17 07:12 Lab Scanned Report REFERENCE LAB White Blood Count 5.2 Red Blood Count 3.01 L Hemoglobin 8.5 L Hematocrit 26.5 L Mean Corpuscular Volume 88.0 Mean Corpuscular Hemoglobin 28.2 L Mean Corpuscular Hemoglobin Concent 32.1 Red Cell Distribution Width 14.8 H Platelet Count 365 Mean Platelet Volume 11.5 H Neutrophils % 59.2 Lymphocytes % 21.3 Monocytes % 10.2 Eosinophils % 7.5 H Basophils % 1.2 Nucleated Red Blood Cells % 0.0 Neutrophils # 3.1 Lymphocytes # 1.1 Monocytes # 0.5 Eosinophils # 0.4 Basophils # 0.1 Nucleated Red Blood Cells # 0.0 Sodium Level 140 Potassium Level 3.3 L Chloride Level 104 Carbon Dioxide Level 27 Anion Gap 12 Blood Urea Nitrogen 7 Creatinine 0.61 Glucose Level 290 #H Calcium Level 8.5 Phosphorus Level 4.9 Magnesium Level 2.0 Total Bilirubin 0.1 L Direct Bilirubin 0.00 Indirect Bilirubin 0.1 Aspartate Amino Transf (AST/SGOT) 37 Alanine Aminotransferase (ALT/SGPT) 105 H Alkaline Phosphatase 188 H Total Protein 6.4 Albumin 3.2 L Globulin 3.20 Albumin/Globulin Ratio 1.00 Medications Medications Current Medications Acetaminophen (Tylenol Tab) 650 mg Q4H PRN PO pain/fever Last administered on 02/05/17 08:01; Admin Dose 650 MG; Start 12/31/16 at 01:00 Hydralazine HCl (Apresoline) 25 mg Q6H PRN PO sbp>160; Start 12/31/16 at 01:00 Enalaprilat (Vasotec Iv) 1.25 mg Q6H PRN IV sbp>160; Start 12/31/16 at 01:00 Ondansetron HCl (Zofran Inj) 4 mg Q4H PRN IV nausea; Start 12/31/16 at 01:00 Hydralazine HCl (Apresoline) 10 mg Q4H PRN IV ELEVATED SYSTOLIC BP Last administered on 02/01/17 22:10; Admin Dose 10 MG; Start 12/31/16 at 05:30 IV Flush (NS 10 ml) 10 ml PRN PRN IV IV PROTOCOL; Start 01/02/17 at 17:00 Lorazepam (Ativan) 2 mg Q2H PRN IV PRN Agitation. Last administered on 09:06; Admin Dose 2 MG; Start 01/04/17 at 09:00 Carbamazepine (Tegretol Susp (Ped)) 400 mg BID NGT Last administered on 09:46; Admin Dose 400 MG; Start 01/22/17 at 21:00 Lansoprazole (Prevacid) 30 mg BID@06,18 NGT Last administered on 02/09/17 06: 28; Admin Dose 30 MG; Start 01/24/17 at 18:00 Docusate Sodium (Colace Liquid Cup) 100 mg BID NGT Last administered on 09:13; Admin Dose 100 MG; Start 01/25/17 at 21:00 Quetiapine Fumarate 200 mg 200 mg Q6 NGT Last administered on 02/09/17 11:25 ; Admin Dose 200 MG; Start 01/27/17 at 12:00 Dextrose/Sodium Chloride (D5-1/2ns) 1,000 ml @ 75 mls/hr [id number] IV Last administered on 02/09/17 11:26; Admin Dose 75 MLS/HR; Start 01/27/17 at 09:30 Propranolol HCl (Inderal Iv) 2 mg BID IV Last administered on 02/09/17 09:07 ; Admin Dose 2 MG; Start 02/01/17 at 17:00 Dantrolene Sodium (Dantrium) 25 mg TID PO Last administered on 02/09/17 12:34 ; Admin Dose 25 MG; Start 02/01/17 at 18:00 Bromocriptine Mesylate (Parlodel) 2.5 mg TID PO Last administered on 12:34; Admin Dose 2.5 MG; Start 02/01/17 at 21:00 Amantadine HCl (Symmetrel) 200 mg BID GTB Last administered on 02/09/17 09:46 ; Admin Dose 200 MG; Start 02/01/17 at 18:00 Amikacin Sulfate AMIKACIN PER PHARMACY NOTE XX ; Start 02/04/17 at 10:00 Amikacin Sulfate/ Dextrose (Amikacin/D5W) 104 ml @ 102 mls/hr Q24H IVPB Last administered on 02/09/17 11:25; Admin Dose 102 MLS/HR; Start 02/04/17 at 12: 00 Diphenhydramine HCl (Benadryl) 50 mg Q4H PRN IV sedation Last administered on 02/09/17 04:27; Admin Dose 50 MG; Start 02/05/17 at 07:00 Thiamine HCl (Vitamin B1) 100 mg DAILY NGT Last administered on 02/09/17 09: 06; Admin Dose 100 MG; Start 02/05/17 at 09:30 Nystatin (Nystatin Powder) 1 applic BID TOP Last administered on 02/09/17 08: 42; Admin Dose 1 APPLIC; Start 02/08/17 at 11:00 Levofloxacin (Levaquin) 750 mg DAILY@06 NGT Last administered on 02/09/17 11: 24; Admin Dose 750 MG; Start 02/09/17 at 10:30 Levetiracetam (Keppra Liquid) 500 mg BID GTB ; Start 02/09/17 at 21:00 VU FLORES Feb 09, 2017 12:59
--- NOTE | 2017-02-09 14:36 | SP ---
DATE OF PROCEDURE: 02/08/2017 HISTORY: This is a 46-year-old male with acute lung injury, respiratory failure, drug overdose and a persistent encephalopathy. He had 3 previous EEG showing encephalopathy. This is a followup EEG. CURRENT MEDICATIONS: Keppra. PROCEDURE: Utilizing a 16-channel EEG machine, cap scalp electrodes were applied in accordance with the International 10-20 system. [id number] and [id number] montages were displayed. Electric al impedances were measured and reported. DESCRIPTION: During the resting state, posterior dominant rhythm of about 6-7 Hz were seen bihemisp herically. Photic stimulation had a good response. Hyperventilation was not performed. There was no focal lateralizing or epileptiform discharge identified. INTERPRETATION: This is an abnormal EEG due to presence of generalized bihemispheric background slo wing without epileptiform activity is consistent with encephalopathy. Please correlate these findin gs with the patient's clinical picture. Dictated By: SALINA PEREIRA/SHANELLE Conf#: [id number] DID#: [id number]
[2017-02-09] MEDS: LEVETIRACETAM (100 MG/ML) 5ML CUP GTB SCH (21:19)
[2017-02-10] VITALS (24 sets, daily range): BP systolic 108–127; BP diastolic 60–77; PULSE 72–81; RESP 18–29
[2017-02-10] MEDS: ALBUTEROL HFA 8 GM INHALER INH SCH ×4 (03:16→20:21)
[2017-02-10] MEDS: IPRATROPIUM (HFA) 12.9 GM INHALER INH SCH ×4 (03:16→20:21)
[2017-02-10] MEDS: LANSOPRAZOLE 30 MG CAP NGT SCH ×2 (05:59→17:25)
[2017-02-10] MEDS: QUETIAPINE 100 MG TAB NGT SCH ×4 (05:59→23:30)
[2017-02-10] MEDS: LEVOFLOXACIN 750 MG TABLET NGT SCH (05:59)
[2017-02-10] MEDS: DEXTROSE 5%-0.45% NACL 1,000 ML IV SCH ×2 (06:13→21:42)
[2017-02-10 08:42] LABS: BASOPHIL # 0.1 10^3/ul (0.0-0.1); BASOPHILS % 0.8 % (0.0-2.0); EOSINOPHILS # 0.5 10^3/ul (0.0-0.5); EOSINOPHILS % 7.6 % (0.0-7.0); HEMATOCRIT 29.5 % (42.0-52.0); HEMOGLOBIN 9.3 g/dl (14.0-18.0); LYMPHOCYTES # 1.6 10^3/ul (0.8-2.9); LYMPHOCYTES % 24.8 % (15.0-51.0); MEAN CORPUSCULAR HEMOGLOBIN 27.9 pg (29.0-33.0); MEAN CORPUSCULAR HGB CONC 31.5 g/dl (32.0-37.0); MEAN CORPUSCULAR VOLUME 88.6 fl (82.0-101.0); MEAN PLATELET VOLUME 11.4 fl (7.4-10.4); MONOCYTE # 0.6 10^3/ul (0.3-0.9); MONOCYTES % 9.5 % (0.0-11.0); NEUTROPHIL # 3.8 10^3/ul (1.6-7.5); NEUTROPHILS % 56.8 % (39.0-77.0); PLATELET COUNT 389 10^3/UL (140-415); RED BLOOD COUNT 3.33 10^6/ul (4.70-6.10); RED CELL DISTRIBUTION WIDTH 14.9 % (11.5-14.5); WHITE BLOOD COUNT 6.6 10^3/ul (4.8-10.8)
[2017-02-10 09:14] LABS: PHOSPHORUS 5.3 mg/dl (2.5-4.9)
[2017-02-10 09:19] LABS: ALBUMIN 3.5 g/dl (3.3-4.9); BILIRUBIN,INDIRECT 0.1 mg/dl (0-1.1); BILIRUBIN,TOTAL 0.1 mg/dl (0.2-1.3); CALCIUM 9.2 mg/dl (8.4-10.2); CREATININE 0.69 mg/dl (0.61-1.24)
[2017-02-10] MEDS: LORAZEPAM 2 MG INJ IV PRN ×2 (10:24→23:30)
[2017-02-10] MEDS: PROPRANOLOL 1 MG INJ IV SCH ×2 (10:31→21:48)
[2017-02-10] MEDS: BROMOCRIPTINE 2.5 MG TAB PO SCH ×3 (10:31→21:44)
[2017-02-10] MEDS: THIAMINE 100 MG TAB NGT SCH (10:32)
[2017-02-10] MEDS: LEVETIRACETAM (100 MG/ML) 5ML CUP GTB SCH ×2 (10:32→21:44)
[2017-02-10] MEDS: DANTROLENE 25 MG CAP PO SCH ×3 (10:32→21:44)
[2017-02-10] MEDS: DOCUSATE SODIUM 10 MG/ML (10ML CUP) NGT SCH ×2 (10:33→21:44)
--- NOTE | 2017-02-10 11:32 | PN ---
Date/Time of Note Date/Time of Note DATE: 02/10/17 TIME: : Assessment/Plan VTE Prophylaxis VTE Prophylaxis Intervention: SCD's Lines/Catheters IV Catheter Type (from Nrsg): PICC Line Central line still needed: Yes (For IV access) Urinary Cath still in place: No Reason Cath still needed: other (indicate) (Condom catheter) Assessment/Plan Assessment/Plan 46 yo male with: 1. Seizure, no previous history, one episode 02/08, likely related to medication withdrawal including benzodiazepines and Depakote and other medication patient has been on for almost a month. No further seizures. Keppra has been added, he was loaded with 1 g then 500 mg po twice daily. EEG post witnessed seizure only showing some encephalopathy, no active seizures.. Patient already had an ample number of imaging done including a recent CAT scan of the brain which was negative. RPR is negative 2. Resolving severe encephalopathy 2ry to drug abuse likely Bath salts and/or synthetic marijuana and also bipolar disorder with violent behaviors and noncompliance with medications per previous psychiatry notes. Now possibility of neuroleptic malignant syndrome secondary to medication interactions. Patient awake, alert and following commands, less vent requirement. OFF Ativan, fentanyl and propofol x 8 days. Stable on telemetry with 1:[address] head 3 since admission are both wnl, EEG x3 showing encephalopathy, MRI brain x1 wnl. RPR negative and Ammonia level wnl. S/p Tracheostomy and PEG tube placement On Inderal, bromocriptine, amantadine, dantrolene, propanolol for NMS treatment for 6 more days to complete total of 14 days On Seroquel and Tegretol for psych. Keppra now added given episode of seizure Thiamine po. 3. Acute respiratory Failure 2ry to severe Encephalopathy from Drug overuse, intubated, sedated and paralysed. Patient was briefly extubated last week for 2 -1/2 hours but had to be reintubated due to inability to protect his airway, of note he was still on sedating agents. WBC within normal now and chest x-ray has been better but with compressive atelectasis. On treatment for tracheobronchitis with Levaquin On FiO2 of 30% and PEEP of 5. Status post tracheostomy Discussed with pulmonary, patient will be started on weaning protocol, he will be put on SIMV and hopefully wean down to aerosol within the next few days 4. Bipolar disorder: Likely noncompliant with psychiatric medications. Medication resumed and adjusted to outpatient dosing based on the note from psychiatry 5 days prior to admission that were able to obtain last Wednesday, patient Seroquel can even be titrated higher, according to the notes he was on Seroquel XR, increased to 1000 mg nightly per the latest note. On Seroquel 200 mg QID and Carbamazepine to 400 mg twice daily. Again per the girlfriend it is very likely that the patient was not fully compliant. Also talked to Joel yesterday, very familiar with this patient at the [facility], patient again runs manic and is always agitated at baseline this is despite the multiple medications he has been prescribed as an outpatient, unclear if just difficult to control versus noncompliant. Will need Psych Eval once trach capped and able to communicate. 5. Right foot Lisfranc fracture on admission : Pain control 6. Anemia: Hemoglobin stable at approx 9.0, status post 1 unit pRBC on 01/15. SCDs to lower extremities. Continue proton pump inhibitors. Tolerating tube feedings. 7. Polymicrobial tracheobronchitis including Staphylococcus aureus MSSA, Klebsiella pneumoniae, Enterobacter cloacae: Patient to complete 14 days of Levaquin 8. MDR Klebsiella pneumoniae UTI: Patient to complete 7 day course of amikacin tomorrow 02/10. Antibiotics can be discontinued after tomorrow's dose, pharmacy notified. Condom catheter Contact isolation Prophylaxis: SCDs for DVT prophylaxis, Protonix for GI prophylaxis Disposition: On telemetry, starting to wean off of ventilator. He is a bipolar that seems to be mostly manic most of the time and noncompliant with medications at all. Drug use is an issue. Needs Psych eval I have discussed the patient's current clinical status and need for psychiatric assistance with Joel at the [facility] (# [phone]) that patient attends Appreciate recommendations from Dr. John, to complete treatment for NMS for 7 more days. Jayda, the patient's 1/2 sister has made us understand that she will not be involved in the primary caregiving of patient and he will need to be placed at the time of discharge no matter what his condition. Subjective 24 Hr Interval Summary Free Text/Dictation Patient remains calmer, sometimes agitated this morning, was given Ativan. He is much calmer currently and sleeping. Easily arousable, answers simple questions. He has pulled his Lewis catheter yesterday now has a condom cath which he has pulled again this morning. Is otherwise following commands Exam/Review of Systems Vital Signs Vitals Vital Signs Date Time Temp Pulse Resp B/P Pulse Ox O2 Delivery O2 Flow Rate FiO2 02/10/17 09:13 81 29 100 30 02/10/17 08:00 98.6 127/69 Mechanical Ventilator Intake and Output 02/09/17 02/09/17 02/10/17 14:59 22:59 06:59 Intake Total 1150 ml 875 ml 1000 ml Output Total 400 ml 600 ml 1500 ml Balance 750 ml 275 ml -500 ml Exam Constitutional: alert, oriented (x2), other (Status post tracheostomy and G- tube placement, on mechanical ventilation), well developed Respiratory: clear to auscultation, other (Status post tracheostomy, on mechanical ventilation.) Cardiovascular: nl pulses, regular rate and rhythm Gastrointestinal: non-tender, other (S/P G-tube placement, tolerating tube feedings.), soft Musculoskeletal: nl extremities to inspection, nl gait and stance Extremities: normal pulses, other (No edema, clubbing or cyanosis) Results Result Diagram: 02/10/1782702/10/17827 Results 24 hrs Laboratory Tests Test 02/10/17 08:28 White Blood Count 6.6 # Red Blood Count 3.33 L Hemoglobin 9.3 L Hematocrit 29.5 L Mean Corpuscular Volume 88.6 Mean Corpuscular Hemoglobin 27.9 L Mean Corpuscular Hemoglobin Concent 31.5 L Red Cell Distribution Width 14.9 H Platelet Count 389 Mean Platelet Volume 11.4 H Neutrophils % 56.8 Lymphocytes % 24.8 Monocytes % 9.5 Eosinophils % 7.6 H Basophils % 0.8 Nucleated Red Blood Cells % 0.0 Neutrophils # 3.8 Lymphocytes # 1.6 Monocytes # 0.6 Eosinophils # 0.5 Basophils # 0.1 Nucleated Red Blood Cells # 0.0 Sodium Level 143 Potassium Level 4.0 Chloride Level 103 Carbon Dioxide Level 30 Anion Gap 14 Blood Urea Nitrogen 9 Creatinine 0.69 Glucose Level 100 # Calcium Level 9.2 Phosphorus Level 5.3 H Magnesium Level 2.0 Total Bilirubin 0.1 L Direct Bilirubin 0.00 Indirect Bilirubin 0.1 Aspartate Amino Transf (AST/SGOT) 58 #H Alanine Aminotransferase (ALT/SGPT) 119 H Alkaline Phosphatase 188 H Total Protein 7.0 Albumin 3.5 Globulin 3.50 H Albumin/Globulin Ratio 1.00 Medications Medications Current Medications Acetaminophen (Tylenol Tab) 650 mg Q4H PRN PO pain/fever Last administered on 02/05/17 08:01; Admin Dose 650 MG; Start 12/31/16 at 01:00 Hydralazine HCl (Apresoline) 25 mg Q6H PRN PO sbp>160; Start 12/31/16 at 01:00 Enalaprilat (Vasotec Iv) 1.25 mg Q6H PRN IV sbp>160; Start 12/31/16 at 01:00 Ondansetron HCl (Zofran Inj) 4 mg Q4H PRN IV nausea; Start 12/31/16 at 01:00 Hydralazine HCl (Apresoline) 10 mg Q4H PRN IV ELEVATED SYSTOLIC BP Last administered on 02/01/17 22:10; Admin Dose 10 MG; Start 12/31/16 at 05:30 IV Flush (NS 10 ml) 10 ml PRN PRN IV IV PROTOCOL; Start 01/02/17 at 17:00 Lorazepam (Ativan) 2 mg Q2H PRN IV PRN Agitation. Last administered on 10:24; Admin Dose 2 MG; Start 01/04/17 at 09:00 Carbamazepine (Tegretol Susp (Ped)) 400 mg BID NGT Last administered on 23:26; Admin Dose 400 MG; Start 01/22/17 at 21:00 Lansoprazole (Prevacid) 30 mg BID@06,18 NGT Last administered on 02/10/17 05: 59; Admin Dose 30 MG; Start 01/24/17 at 18:00 Docusate Sodium (Colace Liquid Cup) 100 mg BID NGT Last administered on 10:33; Admin Dose 100 MG; Start 01/25/17 at 21:00 Quetiapine Fumarate 200 mg 200 mg Q6 NGT Last administered on 02/10/17 05:59 ; Admin Dose 200 MG; Start 01/27/17 at 12:00 Dextrose/Sodium Chloride (D5-1/2ns) 1,000 ml @ 75 mls/hr [id number] IV Last administered on 02/10/17 06:13; Admin Dose 75 MLS/HR; Start 01/27/17 at 09:30 Propranolol HCl (Inderal Iv) 2 mg BID IV Last administered on 02/10/17 10:31 ; Admin Dose 2 MG; Start 02/01/17 at 17:00 Dantrolene Sodium (Dantrium) 25 mg TID PO Last administered on 02/10/17 10:32 ; Admin Dose 25 MG; Start 02/01/17 at 18:00 Bromocriptine Mesylate (Parlodel) 2.5 mg TID PO Last administered on 10:31; Admin Dose 2.5 MG; Start 02/01/17 at 21:00 Amantadine HCl (Symmetrel) 200 mg BID GTB Last administered on 02/09/17 21:18 ; Admin Dose 200 MG; Start 02/01/17 at 18:00 Amikacin Sulfate AMIKACIN PER PHARMACY NOTE XX ; Start 02/04/17 at 10:00 Amikacin Sulfate/ Dextrose (Amikacin/D5W) 104 ml @ 102 mls/hr Q24H IVPB Last administered on 02/09/17 11:25; Admin Dose 102 MLS/HR; Start 02/04/17 at 12: 00 Diphenhydramine HCl (Benadryl) 50 mg Q4H PRN IV sedation Last administered on 02/09/17 04:27; Admin Dose 50 MG; Start 02/05/17 at 07:00 Thiamine HCl (Vitamin B1) 100 mg DAILY NGT Last administered on 02/10/17 10: 32; Admin Dose 100 MG; Start 02/05/17 at 09:30 Nystatin (Nystatin Powder) 1 applic BID TOP Last administered on 02/09/17 21: 29; Admin Dose 1 APPLIC; Start 02/08/17 at 11:00 Levofloxacin (Levaquin) 750 mg DAILY@06 NGT Last administered on 02/10/17 05: 59; Admin Dose 750 MG; Start 02/09/17 at 10:30 Levetiracetam (Keppra Liquid) 500 mg BID GTB Last administered on 02/10/17 10 :32; Admin Dose 500 MG; Start 02/09/17 at 21:00 Procedures Procedures DATE OF PROCEDURE: 02/08/2017 HISTORY: This is a 46-year-old male with acute lung injury, respiratory failure , drug overdose and a persistent encephalopathy. He had 3 previous EEG showing encephalopathy. This is a followup EEG. CURRENT MEDICATIONS: Keppra. PROCEDURE: Utilizing a 16-channel EEG machine, cap scalp electrodes were applied in accordance with the International 10-20 system. [id number] and [id number] montages were displayed. Electrical impedances were measured and reported. DESCRIPTION: During the resting state, posterior dominant rhythm of about 6-7 Hz were seen bihemispherically. Photic stimulation had a good response. Hyperventilation was not performed. There was no focal lateralizing or epileptiform discharge identified. INTERPRETATION: This is an abnormal EEG due to presence of generalized bihemispheric background slowing without epileptiform activity is consistent with encephalopathy. Please correlate these findings with the patient's clinical picture. TRENT NEWMAN Feb 10, 2017 11:32
[2017-02-10] MEDS: carBAMAZepine SUSP 20 MG/ML POSYG NGT SCH ×2 (11:34→23:30)
[2017-02-10] MEDS: AMANTADINE 100 MG/10 ML POSYR GTB SCH ×2 (11:34→21:45)
[2017-02-10] MEDS: NYSTATIN 30 GM POWDER BTL TOP SCH ×2 (12:44→21:48)
[2017-02-10] MEDS: AMIKACIN 1,000 MG in DEXTROSE 5% 100 ML IVPB SCH (12:44)
--- NOTE | 2017-02-10 13:35 | CONS ---
Date/Time of Note Date/Time of Note DATE: 02/10/17 TIME: 13:34 Consult Date/Type/Reason Admit Date/Time Dec 31, 2016 at 00:30 Initial Consult Date 12/31/16 Type of Consultation: Pulmonary Ordering Provider: JEAN MARIE BRAGG MD Subjective Patient comfortable following transfer to telemetry unit. Objective Vital Signs Date Time Temp Pulse Resp B/P Pulse Ox O2 Delivery O2 Flow Rate FiO2 02/10/17 13:25 77 22 99 30 02/10/17 08:00 98.6 127/69 Mechanical Ventilator Intake and Output 02/09/17 02/09/17 02/10/17 14:59 22:59 06:59 Intake Total 1150 ml 875 ml 1000 ml Output Total 400 ml 600 ml 1500 ml Balance 750 ml 275 ml -500 ml Exam GENERAL: Well-nourished well-developed gentleman on mechanical ventilation via tracheostomy VITAL SIGNS: per chart NECK: Supple. No JVD or lymphadenopathy. CARDIAC EXAM: S1, S2. No added sounds or murmurs. CHEST: Diminished air entry bilaterally with rales right base. ABDOMEN: Soft, nontender. No guarding or rebound. EXTREMITIES: No cyanosis, clubbing or edema. NEUROLOGIC: Generalized weakness. No focal deficits. Results/Medications Result Diagram: 02/10/1782702/10/1728 Results 24 hrs Laboratory Tests Test 02/10/17 08:28 White Blood Count 6.6 # Red Blood Count 3.33 L Hemoglobin 9.3 L Hematocrit 29.5 L Mean Corpuscular Volume 88.6 Mean Corpuscular Hemoglobin 27.9 L Mean Corpuscular Hemoglobin Concent 31.5 L Red Cell Distribution Width 14.9 H Platelet Count 389 Mean Platelet Volume 11.4 H Neutrophils % 56.8 Lymphocytes % 24.8 Monocytes % 9.5 Eosinophils % 7.6 H Basophils % 0.8 Nucleated Red Blood Cells % 0.0 Neutrophils # 3.8 Lymphocytes # 1.6 Monocytes # 0.6 Eosinophils # 0.5 Basophils # 0.1 Nucleated Red Blood Cells # 0.0 Sodium Level 143 Potassium Level 4.0 Chloride Level 103 Carbon Dioxide Level 30 Anion Gap 14 Blood Urea Nitrogen 9 Creatinine 0.69 Glucose Level 100 # Calcium Level 9.2 Phosphorus Level 5.3 H Magnesium Level 2.0 Total Bilirubin 0.1 L Direct Bilirubin 0.00 Indirect Bilirubin 0.1 Aspartate Amino Transf (AST/SGOT) 58 #H Alanine Aminotransferase (ALT/SGPT) 119 H Alkaline Phosphatase 188 H Total Protein 7.0 Albumin 3.5 Globulin 3.50 H Albumin/Globulin Ratio 1.00 Medications Current Medications Acetaminophen (Tylenol Tab) 650 mg Q4H PRN PO pain/fever Last administered on 02/05/17 08:01; Admin Dose 650 MG; Start 12/31/16 at 01:00 Hydralazine HCl (Apresoline) 25 mg Q6H PRN PO sbp>160; Start 12/31/16 at 01:00 Enalaprilat (Vasotec Iv) 1.25 mg Q6H PRN IV sbp>160; Start 12/31/16 at 01:00 Ondansetron HCl (Zofran Inj) 4 mg Q4H PRN IV nausea; Start 12/31/16 at 01:00 Hydralazine HCl (Apresoline) 10 mg Q4H PRN IV ELEVATED SYSTOLIC BP Last administered on 02/01/17 22:10; Admin Dose 10 MG; Start 12/31/16 at 05:30 IV Flush (NS 10 ml) 10 ml PRN PRN IV IV PROTOCOL; Start 01/02/17 at 17:00 Lorazepam (Ativan) 2 mg Q2H PRN IV PRN Agitation. Last administered on 10:24; Admin Dose 2 MG; Start 01/04/17 at 09:00 Carbamazepine (Tegretol Susp (Ped)) 400 mg BID NGT Last administered on 11:34; Admin Dose 400 MG; Start 01/22/17 at 21:00 Lansoprazole (Prevacid) 30 mg BID@06,18 NGT Last administered on 02/10/17 05: 59; Admin Dose 30 MG; Start 01/24/17 at 18:00 Docusate Sodium (Colace Liquid Cup) 100 mg BID NGT Last administered on 10:33; Admin Dose 100 MG; Start 01/25/17 at 21:00 Quetiapine Fumarate 200 mg 200 mg Q6 NGT Last administered on 02/10/17 12:43 ; Admin Dose 200 MG; Start 01/27/17 at 12:00 Dextrose/Sodium Chloride (D5-1/2ns) 1,000 ml @ 75 mls/hr [id number] IV Last administered on 02/10/17 06:13; Admin Dose 75 MLS/HR; Start 01/27/17 at 09:30 Propranolol HCl (Inderal Iv) 2 mg BID IV Last administered on 02/10/17 10:31 ; Admin Dose 2 MG; Start 02/01/17 at 17:00 Dantrolene Sodium (Dantrium) 25 mg TID PO Last administered on 02/10/17 12:43 ; Admin Dose 25 MG; Start 02/01/17 at 18:00 Bromocriptine Mesylate (Parlodel) 2.5 mg TID PO Last administered on 12:43; Admin Dose 2.5 MG; Start 02/01/17 at 21:00 Amantadine HCl (Symmetrel) 200 mg BID GTB Last administered on 02/10/17 11:34 ; Admin Dose 200 MG; Start 02/01/17 at 18:00 Amikacin Sulfate AMIKACIN PER PHARMACY NOTE XX ; Start 02/04/17 at 10:00; Stop 02/11/17 at 23:00 Amikacin Sulfate/ Dextrose (Amikacin/D5W) 104 ml @ 102 mls/hr Q24H IVPB Last administered on 02/10/17 12:44; Admin Dose 102 MLS/HR; Start 02/04/17 at 12: 00; Stop 02/11/17 at 23:00 Diphenhydramine HCl (Benadryl) 50 mg Q4H PRN IV sedation Last administered on 02/09/17 04:27; Admin Dose 50 MG; Start 02/05/17 at 07:00 Thiamine HCl (Vitamin B1) 100 mg DAILY NGT Last administered on 02/10/17 10: 32; Admin Dose 100 MG; Start 02/05/17 at 09:30 Nystatin (Nystatin Powder) 1 applic BID TOP Last administered on 02/10/17 12: 44; Admin Dose 1 APPLIC; Start 02/08/17 at 11:00 Levofloxacin (Levaquin) 750 mg DAILY@06 NGT Last administered on 02/10/17 05: 59; Admin Dose 750 MG; Start 02/09/17 at 10:30 Levetiracetam (Keppra Liquid) 500 mg BID GTB Last administered on 02/10/17t 10 :32; Admin Dose 500 MG; Start 02/09/17 at 21:00 Assessment/Plan Chief Complaint/Hosp Course IMP: 1. Hypoxic respiratory failure/Vent Dependence/failure to wean. Now with tracheostomy and mechanical ventilation 2. Acute Lung Injury/ARDS, clinically resolved. 3. History of drug overdose 4. 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 Significant improvement with treatment of NMS 5. ALEX 6. Anemia, likely of chronic disease RECS: 1. Status post tracheostomy and PEG. 2. will attempt weaning trials. SIMV and then cool aerosol as tolerated. 3. Tube feeds/Free H20 4. Minimize sedatives as tolerated 5. Continue antipsychotics continues treatment for NMS Problems: BRIANNA SAAVEDRA MD, [facility] Feb 10, 2017 13:35
--- NOTE | 2017-02-10 14:26 | PN ---
Date/Time of Note Date/Time of Note DATE: 02/10/17 TIME: 14:26 Assessment/Plan Lines/Catheters IV Catheter Type (from Nrsg): PICC Line Lewis in Place (from Nrsg): No Assessment/Plan Chief Complaint/Hosp Course IMPRESSION: Respiratory failure. SP SP tracheostomy continue vent support Discussed with the nursing staff. Problems: Subjective 24 Hr Interval Summary Constitutional: improved Pain Control: mild Exam/Review of Systems Vital Signs Vitals Vital Signs Date Time Temp Pulse Resp B/P Pulse Ox O2 Delivery O2 Flow Rate FiO2 02/10/17 13:25 77 22 99 30 02/10/17 08:00 98.6 127/69 Mechanical Ventilator Intake and Output 02/09/17 02/09/17 02/10/17 14:59 22:59 06:59 Intake Total 1150 ml 875 ml 1000 ml Output Total 400 ml 600 ml 1500 ml Balance 750 ml 275 ml -500 ml Exam Neck: non-tender, supple Respiratory: clear to auscultation, normal air movement Cardiovascular: nl pulses, regular rate and rhythm Gastrointestinal: nl liver, spleen, non-tender, soft Results Result Diagram: 02/10/17 0828 02/10/1728 JOSE GUAJARDO MD Feb 10, 2017 14:26
[2017-02-11] VITALS (24 sets, daily range): BP systolic 98–112; BP diastolic 56–68; PULSE 73–85; RESP 12–20
[2017-02-11] MEDS: IPRATROPIUM (HFA) 12.9 GM INHALER INH SCH ×4 (01:25→19:24)
[2017-02-11] MEDS: ALBUTEROL HFA 8 GM INHALER INH SCH ×4 (01:26→19:24)
[2017-02-11] MEDS: LANSOPRAZOLE 30 MG CAP NGT SCH ×2 (06:10→17:27)
[2017-02-11] MEDS: LEVOFLOXACIN 750 MG TABLET NGT SCH (06:10)
[2017-02-11] MEDS: QUETIAPINE 100 MG TAB NGT SCH ×3 (06:10→17:27)
[2017-02-11 08:22] LABS: BASOPHIL # 0.1 10^3/ul (0.0-0.1); BASOPHILS % 1.1 % (0.0-2.0); EOSINOPHILS # 0.3 10^3/ul (0.0-0.5); EOSINOPHILS % 6.6 % (0.0-7.0); HEMATOCRIT 29.5 % (42.0-52.0); HEMOGLOBIN 9.3 g/dl (14.0-18.0); LYMPHOCYTES # 1.3 10^3/ul (0.8-2.9); LYMPHOCYTES % 30.2 % (15.0-51.0); MEAN CORPUSCULAR HGB CONC 31.5 g/dl (32.0-37.0); MEAN CORPUSCULAR VOLUME 88.9 fl (82.0-101.0); MEAN PLATELET VOLUME 11.3 fl (7.4-10.4); MONOCYTE # 0.6 10^3/ul (0.3-0.9); MONOCYTES % 12.9 % (0.0-11.0); NEUTROPHIL # 2.2 10^3/ul (1.6-7.5); NEUTROPHILS % 48.7 % (39.0-77.0); PLATELET COUNT 372 10^3/UL (140-415); RED BLOOD COUNT 3.32 10^6/ul (4.70-6.10); RED CELL DISTRIBUTION WIDTH 15.5 % (11.5-14.5); WHITE BLOOD COUNT 4.4 10^3/ul (4.8-10.8)
[2017-02-11 08:49] LABS: ALBUMIN 3.3 g/dl (3.3-4.9); ALBUMIN/GLOBULIN RATIO 1.1; BILIRUBIN,INDIRECT 0.1 mg/dl (0-1.1); BILIRUBIN,TOTAL 0.1 mg/dl (0.2-1.3); CALCIUM 8.9 mg/dl (8.4-10.2); CREATININE 0.65 mg/dl (0.61-1.24); POTASSIUM 3.8 mmol/L (3.5-5.1); TOTAL PROTEIN 6.3 g/dl (6.1-8.1)
[2017-02-11 08:52] LABS: PHOSPHORUS 4.9 mg/dl (2.5-4.9)
[2017-02-11] MEDS: AMANTADINE 100 MG/10 ML POSYR GTB SCH ×2 (09:23→21:00)
[2017-02-11] MEDS: LEVETIRACETAM (100 MG/ML) 5ML CUP GTB SCH ×2 (09:23→21:42)
[2017-02-11] MEDS: DANTROLENE 25 MG CAP PO SCH ×3 (09:23→21:43)
[2017-02-11] MEDS: THIAMINE 100 MG TAB NGT SCH (09:23)
[2017-02-11] MEDS: carBAMAZepine SUSP 20 MG/ML POSYG NGT SCH ×2 (09:23→21:00)
[2017-02-11] MEDS: DOCUSATE SODIUM 10 MG/ML (10ML CUP) NGT SCH ×2 (09:23→21:42)
[2017-02-11] MEDS: BROMOCRIPTINE 2.5 MG TAB PO SCH ×3 (09:23→21:42)
[2017-02-11] MEDS: PROPRANOLOL 1 MG INJ IV SCH ×2 (09:24→21:47)
[2017-02-11] MEDS: NYSTATIN 30 GM POWDER BTL TOP SCH ×2 (09:24→21:55)
--- NOTE | 2017-02-11 11:21 | CONS ---
Date/Time of Note Date/Time of Note DATE: 02/11/17 TIME: 11:19 Consult Date/Type/Reason Admit Date/Time Dec 31, 2016 at 00:30 Initial Consult Date 12/31/16 Type of Consultation: Pulmonary Ordering Provider: JEAN MARIE BRAGG MD Subjective Patient less agitated today. Comfortable, responds to questions. Tolerating SIMV. Objective Vital Signs Date Time Temp Pulse Resp B/P Pulse Ox O2 Delivery O2 Flow Rate FiO2 02/11/17 11:05 98.7 75 16 112/68 100 02/11/17 09:15 30 02/10/17 16:00 Mechanical Ventilator Intake and Output 02/10/17 02/10/17 02/11/17 14:59 22:59 06:59 Intake Total 1904 ml 1388 ml Output Total 1200 ml 2000 ml Balance 704 ml -612 ml Exam GENERAL: Well-nourished well-developed gentleman on mechanical ventilation via tracheostomy VITAL SIGNS: per chart NECK: Supple. No JVD or lymphadenopathy. CARDIAC EXAM: S1, S2. No added sounds or murmurs. CHEST: Diminished air entry bilaterally with rales right base. ABDOMEN: Soft, nontender. No guarding or rebound. EXTREMITIES: No cyanosis, clubbing or edema. NEUROLOGIC: Generalized weakness. No focal deficits. Results/Medications Result Diagram: 02/11/17 0500 02/11/17 0810 Results 24 hrs Laboratory Tests Test 02/11/17 05:00 02/11/17 08:10 White Blood Count 4.4 #L Red Blood Count 3.32 L Hemoglobin 9.3 L Hematocrit 29.5 L Mean Corpuscular Volume 88.9 Mean Corpuscular Hemoglobin 28.0 L Mean Corpuscular Hemoglobin Concent 31.5 L Red Cell Distribution Width 15.5 H Platelet Count 372 Mean Platelet Volume 11.3 H Neutrophils % 48.7 Lymphocytes % 30.2 Monocytes % 12.9 H Eosinophils % 6.6 Basophils % 1.1 Nucleated Red Blood Cells % 0.0 Neutrophils # 2.2 Lymphocytes # 1.3 Monocytes # 0.6 Eosinophils # 0.3 Basophils # 0.1 Nucleated Red Blood Cells # 0.0 Sodium Level 142 Potassium Level 3.8 Chloride Level 103 Carbon Dioxide Level 28 Anion Gap 15 Blood Urea Nitrogen 7 Creatinine 0.65 Glucose Level 217 # Calcium Level 8.9 Phosphorus Level 4.9 Magnesium Level 2.0 Total Bilirubin 0.1 L Direct Bilirubin 0.00 Indirect Bilirubin 0.1 Aspartate Amino Transf (AST/SGOT) 43 Alanine Aminotransferase (ALT/SGPT) 117 H Alkaline Phosphatase 186 H Total Protein 6.3 Albumin 3.3 Globulin 3.00 Albumin/Globulin Ratio 1.10 Medications Current Medications Acetaminophen (Tylenol Tab) 650 mg Q4H PRN PO pain/fever Last administered on 02/05/17 08:01; Admin Dose 650 MG; Start 12/31/16 at 01:00 Hydralazine HCl (Apresoline) 25 mg Q6H PRN PO sbp>160; Start 12/31/16 at 01:00 Enalaprilat (Vasotec Iv) 1.25 mg Q6H PRN IV sbp>160; Start 12/31/16 at 01:00 Ondansetron HCl (Zofran Inj) 4 mg Q4H PRN IV nausea; Start 12/31/16 at 01:00 Hydralazine HCl (Apresoline) 10 mg Q4H PRN IV ELEVATED SYSTOLIC BP Last administered on 02/01/17 22:10; Admin Dose 10 MG; Start 12/31/16 at 05:30 IV Flush (NS 10 ml) 10 ml PRN PRN IV IV PROTOCOL; Start 01/02/17 at 17:00 Lorazepam (Ativan) 2 mg Q2H PRN IV PRN Agitation. Last administered on 23:30; Admin Dose 2 MG; Start 01/04/17 at 09:00 Carbamazepine (Tegretol Susp (Ped)) 400 mg BID NGT Last administered on 09:23; Admin Dose 400 MG; Start 01/22/17 at 21:00 Lansoprazole (Prevacid) 30 mg BID@,18 NGT Last administered on 02/11/17 06: 10; Admin Dose 30 MG; Start 01/24/17 at 18:00 Docusate Sodium (Colace Liquid Cup) 100 mg BID NGT Last administered on 09:23; Admin Dose 100 MG; Start 01/25/17 at 21:00 Quetiapine Fumarate 200 mg 200 mg Q6 NGT Last administered on 02/11/17 06:10 ; Admin Dose 200 MG; Start 01/27/17 at 12:00 Dextrose/Sodium Chloride (D5-1/2ns) 1,000 ml @ 75 mls/hr [id number] IV Last administered on 02/10/17 21:42; Admin Dose 75 MLS/HR; Start 01/27/17 at 09:30 Propranolol HCl (Inderal Iv) 2 mg BID IV Last administered on 02/11/17 09:24 ; Admin Dose 2 MG; Start 02/01/17 at 17:00 Dantrolene Sodium (Dantrium) 25 mg TID PO Last administered on 02/11/17 09:23 ; Admin Dose 25 MG; Start 02/01/17 at 18:00 Bromocriptine Mesylate (Parlodel) 2.5 mg TID PO Last administered on 09:23; Admin Dose 2.5 MG; Start 02/01/17 at 21:00 Amantadine HCl (Symmetrel) 200 mg BID GTB Last administered on 02/11/17 09:23 ; Admin Dose 200 MG; Start 02/01/17 at 18:00 Amikacin Sulfate AMIKACIN PER PHARMACY NOTE XX ; Start 02/04/17 at 10:00; Stop 02/11/17 at 23:00 Amikacin Sulfate/ Dextrose (Amikacin/D5W) 104 ml @ 102 mls/hr Q24H IVPB Last administered on 02/10/17 12:44; Admin Dose 102 MLS/HR; Start 02/04/17 at 12: 00; Stop 02/11/17 at 23:00 Diphenhydramine HCl (Benadryl) 50 mg Q4H PRN IV sedation Last administered on 02/09/17 04:27; Admin Dose 50 MG; Start 02/05/17 at 07:00 Thiamine HCl (Vitamin B1) 100 mg DAILY NGT Last administered on 02/11/17 09: 23; Admin Dose 100 MG; Start 02/05/17 at 09:30 Nystatin (Nystatin Powder) 1 applic BID TOP Last administered on 02/11/17 09: 24; Admin Dose 1 APPLIC; Start 02/08/17 at 11:00 Levofloxacin (Levaquin) 750 mg DAILY@06 NGT Last administered on 02/11/17 06: 10; Admin Dose 750 MG; Start 02/09/17 at 10:30 Levetiracetam (Keppra Liquid) 500 mg BID GTB Last administered on 02/11/17t 09 :23; Admin Dose 500 MG; Start 02/09/17 at 21:00 Assessment/Plan Chief Complaint/Hosp Course IMP: 1. Hypoxic respiratory failure/Vent Dependence/failure to wean. Now with tracheostomy and mechanical ventilation 2. Acute Lung Injury/ARDS, clinically resolved. 3. History of drug overdose 4. 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 Significant improvement with treatment of NMS 5. ALEX 6. Anemia, likely of chronic disease RECS: 1. Status post tracheostomy and PEG. 2. will attempt weaning trials. Advance SIMV. Will attempt rate 4 pressure support of 10 if remains stable trial of cool aerosol tomorrow. 3. Tube feeds/Free H20 4. Minimize sedatives as tolerated 5. Continue antipsychotics continues treatment for NMS Problems: BRIANNA SAAVEDRA MD, [facility] Feb 11, 2017 11:21
[2017-02-11] MEDS: DEXTROSE 5%-0.45% NACL 1,000 ML IV SCH (12:46)
[2017-02-11] MEDS: AMIKACIN 1,000 MG in DEXTROSE 5% 100 ML IVPB SCH (12:47)
--- NOTE | 2017-02-11 14:30 | PN ---
Date/Time of Note Date/Time of Note DATE: 02/11/17 TIME: 14:29 Assessment/Plan VTE Prophylaxis VTE Prophylaxis Intervention: SCD's Lines/Catheters Urinary Cath still in place: No Assessment/Plan Chief Complaint/Hosp Course 1. Seizure, no previous history, one episode 02/08, likely related to medication withdrawal including benzodiazepines and Depakote and other medication patient has been on for almost a month. No further seizures. Keppra has been added, he was loaded with 1 g then 500 mg po twice daily. EEG post witnessed seizure only showing some encephalopathy, no active seizures.. Patient already had an ample number of imaging done including a recent CAT scan of the brain which was negative. RPR is negative 2. Resolving severe encephalopathy secondary to drug abuse likely Bath salts and/or synthetic marijuana and also bipolar disorder with violent behaviors and noncompliance with medications per previous psychiatry notes. Now possibility of neuroleptic malignant syndrome secondary to medication interactions. Patient awake, alert and following commands, less vent requirement. OFF Ativan, fentanyl and propofol x 8 days. Stable on telemetry with 1:[address] head 3 since admission are both wnl, EEG x3 showing encephalopathy, MRI brain x1 wnl. RPR negative and Ammonia level wnl. S/p Tracheostomy and PEG tube placement On Inderal, bromocriptine, amantadine, dantrolene, propanolol for NMS treatment for 6 more days to complete total of 14 days On Seroquel and Tegretol for psych. Keppra now added given episode of seizure Thiamine po. 3. Acute respiratory Failure secondary to severe Encephalopathy from Drug overuse, intubated, sedated and paralysed. Patient was briefly extubated last week for 2-1/2 hours but had to be reintubated due to inability to protect his airway, of note he was still on sedating agents. WBC within normal now and chest x-ray has been better but with compressive atelectasis. On treatment for tracheobronchitis with Levaquin On FiO2 of 30% and PEEP of 5. Status post tracheostomy Discussed with pulmonary, patient will be started on weaning protocol, he will be put on SIMV and hopefully wean down to aerosol within the next few days 4. Bipolar disorder: Likely noncompliant with psychiatric medications. Medication resumed and adjusted to outpatient dosing based on the note from psychiatry 5 days prior to admission that were able to obtain last Wednesday, patient Seroquel can even be titrated higher, according to the notes he was on Seroquel XR, increased to 1000 mg nightly per the latest note. On Seroquel 200 mg QID and Carbamazepine to 400 mg twice daily. Again per the girlfriend it is very likely that the patient was not fully compliant. Also talked to Joel yesterday, very familiar with this patient at the [facility], patient again runs manic and is always agitated at baseline this is despite the multiple medications he has been prescribed as an outpatient, unclear if just difficult to control versus noncompliant. Will need Psych Eval once trach capped and able to communicate. 5. Right foot Lisfranc fracture on admission : Pain control 6. Anemia: Hemoglobin stable at approx 9.0, status post 1 unit pRBC on 01/15. SCDs to lower extremities. Continue proton pump inhibitors. Tolerating tube feedings. 7. Polymicrobial tracheobronchitis including Staphylococcus aureus MSSA, Klebsiella pneumoniae, Enterobacter cloacae: Patient to complete 14 days of Levaquin 8. MDR Klebsiella pneumoniae UTI: Patient to complete 7 day course of amikacin tomorrow 02/10. Antibiotics can be discontinued after tomorrow's dose, pharmacy notified. Condom catheter Contact isolation Prophylaxis: SCDs for DVT prophylaxis, Protonix for GI prophylaxis Disposition: On telemetry, starting to wean off of ventilator. He is a bipolar that seems to be mostly manic most of the time and noncompliant with medications at all. Drug use is an issue. Needs Psych eval I have discussed the patient's current clinical status and need for psychiatric assistance with Joel at the [facility] (# [phone]) that patient attends Appreciate recommendations from Dr. John, to complete treatment for NMS for 7 more days. Jayda, the patient's 1/2 sister has made us understand that she will not be involved in the primary caregiving of patient and he will need to be placed at the time of discharge no matter what his condition. Problems: Subjective 24 Hr Interval Summary Constitutional: no complaints Exam/Review of Systems Vital Signs Vitals Vital Signs Date Time Temp Pulse Resp B/P Pulse Ox O2 Delivery O2 Flow Rate FiO2 02/11/17 12:28 79 11/23/17 11:20 14 98 30 02/11/17 11:05 98.7 112/68 02/10/17 16:00 Mechanical Ventilator Intake and Output 02/10/17 02/10/17 02/11/17 15:00 23:00 07:00 Intake Total 1904 ml 1388 ml Output Total 1200 ml 2000 ml Balance 704 ml -612 ml Exam Constitutional: alert Respiratory: clear to auscultation Cardiovascular: regular rate and rhythm Gastrointestinal: soft, No distended Musculoskeletal: nl extremities to inspection Results Result Diagram: 02/11/17 0500 02/11/17 0810 Results 24 hrs Laboratory Tests Test 02/11/17 05:00 02/11/17 08:10 White Blood Count 4.4 #L Red Blood Count 3.32 L Hemoglobin 9.3 L Hematocrit 29.5 L Mean Corpuscular Volume 88.9 Mean Corpuscular Hemoglobin 28.0 L Mean Corpuscular Hemoglobin Concent 31.5 L Red Cell Distribution Width 15.5 H Platelet Count 372 Mean Platelet Volume 11.3 H Neutrophils % 48.7 Lymphocytes % 30.2 Monocytes % 12.9 H Eosinophils % 6.6 Basophils % 1.1 Nucleated Red Blood Cells % 0.0 Neutrophils # 2.2 Lymphocytes # 1.3 Monocytes # 0.6 Eosinophils # 0.3 Basophils # 0.1 Nucleated Red Blood Cells # 0.0 Sodium Level 142 Potassium Level 3.8 Chloride Level 103 Carbon Dioxide Level 28 Anion Gap 15 Blood Urea Nitrogen 7 Creatinine 0.65 Glucose Level 217 # Calcium Level 8.9 Phosphorus Level 4.9 Magnesium Level 2.0 Total Bilirubin 0.1 L Direct Bilirubin 0.00 Indirect Bilirubin 0.1 Aspartate Amino Transf (AST/SGOT) 43 Alanine Aminotransferase (ALT/SGPT) 117 H Alkaline Phosphatase 186 H Total Protein 6.3 Albumin 3.3 Globulin 3.00 Albumin/Globulin Ratio 1.10 Medications Medications Current Medications Acetaminophen (Tylenol Tab) 650 mg Q4H PRN PO pain/fever Last administered on 02/05/17t 08:01; Admin Dose 650 MG; Start 12/31/16 at 01:00 Hydralazine HCl (Apresoline) 25 mg Q6H PRN PO sbp>160; Start 12/31/16 at 01:00 Enalaprilat (Vasotec Iv) 1.25 mg Q6H PRN IV sbp>160; Start 12/31/16 at 01:00 Ondansetron HCl (Zofran Inj) 4 mg Q4H PRN IV nausea; Start 12/31/16 at 01:00 Hydralazine HCl (Apresoline) 10 mg Q4H PRN IV ELEVATED SYSTOLIC BP Last administered on 02/01/17 22:10; Admin Dose 10 MG; Start 12/31/16 at 05:30 IV Flush (NS 10 ml) 10 ml PRN PRN IV IV PROTOCOL; Start 01/02/17 at 17:00 Lorazepam (Ativan) 2 mg Q2H PRN IV PRN Agitation. Last administered on 23:30; Admin Dose 2 MG; Start 01/04/17 at 09:00 Carbamazepine (Tegretol Susp (Ped)) 400 mg BID NGT Last administered on 09:23; Admin Dose 400 MG; Start 01/22/17 at 21:00 Lansoprazole (Prevacid) 30 mg BID@06,18 NGT Last administered on 02/11/17 06: 10; Admin Dose 30 MG; Start 01/24/17 at 18:00 Docusate Sodium (Colace Liquid Cup) 100 mg BID NGT Last administered on 09:23; Admin Dose 100 MG; Start 01/25/17 at 21:00 Quetiapine Fumarate 200 mg 200 mg Q6 NGT Last administered on 02/11/17 12:47 ; Admin Dose 200 MG; Start 01/27/17 at 12:00 Dextrose/Sodium Chloride (D5-1/2ns) 1,000 ml @ 75 mls/hr [id number] IV Last administered on 02/11/17 12:46; Admin Dose 75 MLS/HR; Start 01/27/17 at 09:30 Propranolol HCl (Inderal Iv) 2 mg BID IV Last administered on 02/11/17 09:24 ; Admin Dose 2 MG; Start 02/01/17 at 17:00 Dantrolene Sodium (Dantrium) 25 mg TID PO Last administered on 02/11/17 12:47 ; Admin Dose 25 MG; Start 02/01/17 at 18:00 Bromocriptine Mesylate (Parlodel) 2.5 mg TID PO Last administered on 12:47; Admin Dose 2.5 MG; Start 02/01/17 at 21:00 Amantadine HCl (Symmetrel) 200 mg BID GTB Last administered on 02/11/17 09:23 ; Admin Dose 200 MG; Start 02/01/17 at 18:00 Amikacin Sulfate AMIKACIN PER PHARMACY NOTE XX ; Start 02/04/17 at 10:00; Stop 02/11/17 at 23:00 Amikacin Sulfate/ Dextrose (Amikacin/D5W) 104 ml @ 102 mls/hr Q24H IVPB Last administered on 02/11/17 12:47; Admin Dose 102 MLS/HR; Start 02/04/17 at 12: 00; Stop 02/11/17 at 23:00 Diphenhydramine HCl (Benadryl) 50 mg Q4H PRN IV sedation Last administered on 02/09/17 04:27; Admin Dose 50 MG; Start 02/05/17 at 07:00 Thiamine HCl (Vitamin B1) 100 mg DAILY NGT Last administered on 02/11/17 09: 23; Admin Dose 100 MG; Start 02/05/17 at 09:30 Nystatin (Nystatin Powder) 1 applic BID TOP Last administered on 02/11/17 09: 24; Admin Dose 1 APPLIC; Start 02/08/17 at 11:00 Levofloxacin (Levaquin) 750 mg DAILY@06 NGT Last administered on 02/11/17 06: 10; Admin Dose 750 MG; Start 02/09/17 at 10:30 Levetiracetam (Keppra Liquid) 500 mg BID GTB Last administered on 02/11/17 09 :23; Admin Dose 500 MG; Start 02/09/17 at 21:00 MAUDE MELÉNDEZ Feb 11, 2017 14:30
--- NOTE | 2017-02-11 16:30 | PN ---
Date/Time of Note Date/Time of Note DATE: 02/11/17 TIME: 16:30 Assessment/Plan Lines/Catheters Lewis in Place (from Nrs): No Assessment/Plan Chief Complaint/Hosp Course IMPRESSION: Respiratory failure. SP SP tracheostomy continue vent support Discussed with the nursing staff. Problems: Subjective 24 Hr Interval Summary Constitutional: improved Pain Control: mild Exam/Review of Systems Vital Signs Vitals Vital Signs Date Time Temp Pulse Resp B/P Pulse Ox O2 Delivery O2 Flow Rate FiO2 02/11/17 16:21 73 02/11/17 15:16 98.7 12 98/64 100 02/11/17 15:15 30 02/10/17 16:00 Mechanical Ventilator Intake and Output 02/10/17 02/10/17 02/11/17 15:00 23:00 07:00 Intake Total 1904 ml 1388 ml Output Total 1200 ml 2000 ml Balance 704 ml -612 ml Exam ENMT: mucosa pink and moist, nl external ears & nose, nl lips & teeth, nl nasal mucosa & septum Neck: non-tender, supple Respiratory: clear to auscultation, normal air movement Cardiovascular: nl pulses, regular rate and rhythm Results Result Diagram: 02/11/17 0500 02/11/17 0810 JOSE GUAJARDO MD Feb 11, 2017 16:30
[2017-02-12] VITALS (19 sets, daily range): BP systolic 92–118; BP diastolic 53–75; PULSE 72–104; RESP 12–20
[2017-02-12] MEDS: LORAZEPAM 2 MG INJ IV PRN ×2 (00:01→05:57)
[2017-02-12] MEDS: DEXTROSE 5%-0.45% NACL 1,000 ML IV SCH ×2 (00:01→12:50)
[2017-02-12] MEDS: QUETIAPINE 100 MG TAB NGT SCH ×4 (00:08→17:13)
[2017-02-12] MEDS: IPRATROPIUM (HFA) 12.9 GM INHALER INH SCH ×3 (01:21→20:00)
[2017-02-12] MEDS: ALBUTEROL HFA 8 GM INHALER INH SCH ×3 (01:22→20:00)
[2017-02-12] MEDS: DIPHENHYDRAMINE 50 MG INJ IV PRN (03:56)
[2017-02-12] MEDS: ACETAMINOPHEN 325 MG TAB PO PRN (04:31)
[2017-02-12] MEDS: LANSOPRAZOLE 30 MG CAP NGT SCH ×2 (05:51→17:12)
[2017-02-12] MEDS: LEVOFLOXACIN 750 MG TABLET NGT SCH (05:51)
[2017-02-12 08:59] LABS: BASOPHIL # 0.1 10^3/ul (0.0-0.1); BASOPHILS % 1.4 % (0.0-2.0); EOSINOPHILS # 0.2 10^3/ul (0.0-0.5); EOSINOPHILS % 3.1 % (0.0-7.0); HEMATOCRIT 31.6 % (42.0-52.0); HEMOGLOBIN 9.9 g/dl (14.0-18.0); LYMPHOCYTES # 1.7 10^3/ul (0.8-2.9); LYMPHOCYTES % 32.9 % (15.0-51.0); MEAN CORPUSCULAR HEMOGLOBIN 27.8 pg (29.0-33.0); MEAN CORPUSCULAR HGB CONC 31.3 g/dl (32.0-37.0); MEAN CORPUSCULAR VOLUME 88.8 fl (82.0-101.0); MEAN PLATELET VOLUME 11.5 fl (7.4-10.4); MONOCYTE # 0.6 10^3/ul (0.3-0.9); MONOCYTES % 11.5 % (0.0-11.0); NEUTROPHIL # 2.6 10^3/ul (1.6-7.5); NEUTROPHILS % 50.5 % (39.0-77.0); PLATELET COUNT 376 10^3/UL (140-415); RED BLOOD COUNT 3.56 10^6/ul (4.70-6.10); RED CELL DISTRIBUTION WIDTH 15.4 % (11.5-14.5); WHITE BLOOD COUNT 5.1 10^3/ul (4.8-10.8)
[2017-02-12 09:26] LABS: CALCIUM 9.3 mg/dl (8.4-10.2); CREATININE 0.69 mg/dl (0.61-1.24); POTASSIUM 3.6 mmol/L (3.5-5.1)
[2017-02-12] MEDS: DOCUSATE SODIUM 10 MG/ML (10ML CUP) NGT SCH ×2 (10:07→21:16)
[2017-02-12] MEDS: LEVETIRACETAM (100 MG/ML) 5ML CUP GTB SCH ×2 (10:07→21:16)
[2017-02-12] MEDS: carBAMAZepine SUSP 20 MG/ML POSYG NGT SCH ×2 (10:07→21:39)
[2017-02-12] MEDS: AMANTADINE 100 MG/10 ML POSYR GTB SCH ×2 (10:09→21:16)
[2017-02-12] MEDS: THIAMINE 100 MG TAB NGT SCH (10:09)
[2017-02-12] MEDS: BROMOCRIPTINE 2.5 MG TAB PO SCH ×3 (10:09→21:17)
[2017-02-12] MEDS: DANTROLENE 25 MG CAP PO SCH ×3 (10:09→21:17)
[2017-02-12] MEDS: PROPRANOLOL 1 MG INJ IV SCH ×2 (10:09→21:19)
[2017-02-12] MEDS: NYSTATIN 30 GM POWDER BTL TOP SCH ×2 (10:09→21:16)
--- NOTE | 2017-02-12 10:11 | CONS ---
Date/Time of Note Date/Time of Note DATE: 02/12/17 TIME: 10:10 Consult Date/Type/Reason Admit Date/Time Dec 31, 2016 at 00:30 Initial Consult Date 12/31/16 Type of Consultation: Pulmonary Ordering Provider: JEAN MARIE BRAGG MD Subjective Patient remains comfortable awake alert oriented. Tolerating SIMV. Objective Vital Signs Date Time Temp Pulse Resp B/P Pulse Ox O2 Delivery O2 Flow Rate FiO2 02/12/17 09:12 99.3 92 14 112/64 100 02/12/17 08:05 30 02/10/17 16:00 Mechanical Ventilator Intake and Output 02/11/17 02/11/17 02/12/17 15:00 23:00 07:00 Intake Total 900 ml 2088 ml Output Total 1200 ml 700 ml Balance -300 ml 1388 ml Exam GENERAL: Well-nourished well-developed gentleman on mechanical ventilation via tracheostomy VITAL SIGNS: per chart NECK: Supple. No JVD or lymphadenopathy. CARDIAC EXAM: S1, S2. No added sounds or murmurs. CHEST: Diminished air entry bilaterally with rales right base. ABDOMEN: Soft, nontender. No guarding or rebound. EXTREMITIES: No cyanosis, clubbing or edema. NEUROLOGIC: Generalized weakness. No focal deficits. Results/Medications Result Diagram: 02/12/17 0802/12/17 0803 Results 24 hrs Laboratory Tests Test 02/12/17 08:03 White Blood Count 5.1 Red Blood Count 3.56 L Hemoglobin 9.9 L Hematocrit 31.6 L Mean Corpuscular Volume 88.8 Mean Corpuscular Hemoglobin 27.8 L Mean Corpuscular Hemoglobin Concent 31.3 L Red Cell Distribution Width 15.4 H Platelet Count 376 Mean Platelet Volume 11.5 H Neutrophils % 50.5 Lymphocytes % 32.9 Monocytes % 11.5 H Eosinophils % 3.1 Basophils % 1.4 Nucleated Red Blood Cells % 0.0 Neutrophils # 2.6 Lymphocytes # 1.7 Monocytes # 0.6 Eosinophils # 0.2 Basophils # 0.1 Nucleated Red Blood Cells # 0.0 Sodium Level 145 H Potassium Level 3.6 Chloride Level 103 Carbon Dioxide Level 30 Anion Gap 16 Blood Urea Nitrogen 8 Creatinine 0.69 Glucose Level 92 # Calcium Level 9.3 Medications Current Medications Acetaminophen (Tylenol Tab) 650 mg Q4H PRN PO pain/fever Last administered on 02/12/17 04:31; Admin Dose 650 MG; Start 12/31/16 at 01:00 Hydralazine HCl (Apresoline) 25 mg Q6H PRN PO sbp>160; Start 12/31/16 at 01:00 Enalaprilat (Vasotec Iv) 1.25 mg Q6H PRN IV sbp>160; Start 12/31/16 at 01:00 Ondansetron HCl (Zofran Inj) 4 mg Q4H PRN IV nausea; Start 12/31/16 at 01:00 Hydralazine HCl (Apresoline) 10 mg Q4H PRN IV ELEVATED SYSTOLIC BP Last administered on 02/01/17 22:10; Admin Dose 10 MG; Start 12/31/16 at 05:30 IV Flush (NS 10 ml) 10 ml PRN PRN IV IV PROTOCOL; Start 01/02/17 at 17:00 Lorazepam (Ativan) 2 mg Q2H PRN IV PRN Agitation. Last administered on 05:57; Admin Dose 2 MG; Start 01/04/17 at 09:00 Carbamazepine (Tegretol Susp (Ped)) 400 mg BID NGT Last administered on 09:23; Admin Dose 400 MG; Start 01/22/17 at 21:00 Lansoprazole (Prevacid) 30 mg BID@06,18 NGT Last administered on 02/12/17 05: 51; Admin Dose 30 MG; Start 01/24/17 at 18:00 Docusate Sodium (Colace Liquid Cup) 100 mg BID NGT Last administered on 21:42; Admin Dose 100 MG; Start 01/25/17 at 21:00 Quetiapine Fumarate 200 mg 200 mg Q6 NGT Last administered on 02/12/17 05:52 ; Admin Dose 200 MG; Start 01/27/17 at 12:00 Dextrose/Sodium Chloride (D5-1/2ns) 1,000 ml @ 75 mls/hr [id number] IV Last administered on 02/12/17 00:01; Admin Dose 75 MLS/HR; Start 01/27/17 at 09:30 Propranolol HCl (Inderal Iv) 2 mg BID IV Last administered on 02/11/17 21:47 ; Admin Dose 2 MG; Start 02/01/17 at 17:00 Dantrolene Sodium (Dantrium) 25 mg TID PO Last administered on 02/11/17 21:43 ; Admin Dose 25 MG; Start 02/01/17 at 18:00 Bromocriptine Mesylate (Parlodel) 2.5 mg TID PO Last administered on 21:42; Admin Dose 2.5 MG; Start 02/01/17 at 21:00 Amantadine HCl (Symmetrel) 200 mg BID GTB Last administered on 02/11/17 09:23 ; Admin Dose 200 MG; Start 02/01/17 at 18:00 Diphenhydramine HCl (Benadryl) 50 mg Q4H PRN IV sedation Last administered on 02/12/17 03:56; Admin Dose 50 MG; Start 02/05/17 at 07:00 Thiamine HCl (Vitamin B1) 100 mg DAILY NGT Last administered on 02/11/17 09: 23; Admin Dose 100 MG; Start 02/05/17 at 09:30 Nystatin (Nystatin Powder) 1 applic BID TOP Last administered on 02/11/17 21: 55; Admin Dose 1 APPLIC; Start 02/08/17 at 11:00 Levofloxacin (Levaquin) 750 mg DAILY@06 NGT Last administered on 02/12/17 05: 51; Admin Dose 750 MG; Start 02/09/17 at 10:30 Levetiracetam (Keppra Liquid) 500 mg BID GTB Last administered on 02/11/17 21 :42; Admin Dose 500 MG; Start 02/09/17 at 21:00 Assessment/Plan Chief Complaint/Hosp Course IMP: 1. Hypoxic respiratory failure/Vent Dependence/failure to wean. Now with tracheostomy and mechanical ventilation 2. Acute Lung Injury/ARDS, clinically resolved. 3. History of drug overdose 4. 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 Significant improvement with treatment of NMS 5. ALEX 6. Anemia, likely of chronic disease RECS: 1. Status post tracheostomy and PEG. 2. will attempt weaning trials. Advance to cool aerosol during the day and SIMV at night. As needed nebulizers. 3. Tube feeds/Free H20 4. Minimize sedatives as tolerated 5. Continue antipsychotics continues treatment for NMS Problems: BRIANNA SAAVEDRA MD, [facility] Feb 12, 2017 10:11
--- NOTE | 2017-02-12 13:54 | PN ---
Date/Time of Note Date/Time of Note DATE: 02/12/17 TIME: 13:53 Assessment/Plan VTE Prophylaxis VTE Prophylaxis Intervention: SCD's Lines/Catheters Urinary Cath still in place: No Assessment/Plan Chief Complaint/Hosp Course 1. Seizure, no previous history, one episode 02/08, likely related to medication withdrawal including benzodiazepines and Depakote and other medication patient has been on for almost a month. No further seizures. Keppra has been added, he was loaded with 1 g then 500 mg po twice daily. EEG post witnessed seizure only showing some encephalopathy, no active seizures.. Patient already had an ample number of imaging done including a recent CAT scan of the brain which was negative. RPR is negative 2. Resolving severe encephalopathy secondary to drug abuse likely Bath salts and/or synthetic marijuana and also bipolar disorder with violent behaviors and noncompliance with medications per previous psychiatry notes. Now possibility of neuroleptic malignant syndrome secondary to medication interactions. Patient awake, alert and following commands, less vent requirement. OFF Ativan, fentanyl and propofol x 8 days. Stable on telemetry with 1:[address] head 3 since admission are both wnl, EEG x3 showing encephalopathy, MRI brain x1 wnl. RPR negative and Ammonia level wnl. S/p Tracheostomy and PEG tube placement On Inderal, bromocriptine, amantadine, dantrolene, propanolol for NMS treatment for 6 more days to complete total of 14 days On Seroquel and Tegretol for psych. Keppra now added given episode of seizure Thiamine po. 3. Acute respiratory Failure secondary to severe Encephalopathy from Drug overuse, intubated, sedated and paralysed. Patient was briefly extubated last week for 2-1/2 hours but had to be reintubated due to inability to protect his airway, of note he was still on sedating agents. WBC within normal now and chest x-ray has been better but with compressive atelectasis. On treatment for tracheobronchitis with Levaquin On FiO2 of 30% and PEEP of 5. Status post tracheostomy Discussed with pulmonary, patient will be started on weaning protocol, he will be put on SIMV and hopefully wean down to aerosol within the next few days 4. Bipolar disorder: Likely noncompliant with psychiatric medications. Medication resumed and adjusted to outpatient dosing based on the note from psychiatry 5 days prior to admission that were able to obtain last Wednesday, patient Seroquel can even be titrated higher, according to the notes he was on Seroquel XR, increased to 1000 mg nightly per the latest note. On Seroquel 200 mg QID and Carbamazepine to 400 mg twice daily. Again per the girlfriend it is very likely that the patient was not fully compliant. Also talked to Joel yesterday, very familiar with this patient at the [facility], patient again runs manic and is always agitated at baseline this is despite the multiple medications he has been prescribed as an outpatient, unclear if just difficult to control versus noncompliant. Will need Psych Eval once trach capped and able to communicate. 5. Right foot Lisfranc fracture on admission : Pain control 6. Anemia: Hemoglobin stable at approx 9.0, status post 1 unit pRBC on 01/15. SCDs to lower extremities. Continue proton pump inhibitors. Tolerating tube feedings. 7. Polymicrobial tracheobronchitis including Staphylococcus aureus MSSA, Klebsiella pneumoniae, Enterobacter cloacae: Patient to complete 14 days of Levaquin 8. MDR Klebsiella pneumoniae UTI: Patient to complete 7 day course of amikacin tomorrow 02/10. Antibiotics can be discontinued after tomorrow's dose, pharmacy notified. Condom catheter Contact isolation Prophylaxis: SCDs for DVT prophylaxis, Protonix for GI prophylaxis Disposition: On telemetry, starting to wean off of ventilator. He is a bipolar that seems to be mostly manic most of the time and noncompliant with medications at all. Drug use is an issue. Needs Psych eval I have discussed the patient's current clinical status and need for psychiatric assistance with Joel at the [facility] (# [phone]) that patient attends Appreciate recommendations from Dr. John, to complete treatment for NMS for 7 more days. Jayda, the patient's 1/2 sister has made us understand that she will not be involved in the primary caregiving of patient and he will need to be placed at the time of discharge no matter what his condition. Problems: Subjective 24 Hr Interval Summary Subjective hx not possible: pt non-verbal Exam/Review of Systems Vital Signs Vitals Vital Signs Date Time Temp Pulse Resp B/P Pulse Ox O2 Delivery O2 Flow Rate FiO2 02/12/17 12:36 93 02/12/17 11:16 99.2 20 118/75 100 02/12/17 09:30 5.0 28 02/10/17 16:00 Mechanical Ventilator Intake and Output 02/11/17 02/11/17 02/12/17 15:00 23:00 07:00 Intake Total 900 ml 2088 ml Output Total 1200 ml 700 ml Balance -300 ml 1388 ml Exam Constitutional: alert Respiratory: clear to auscultation Cardiovascular: regular rate and rhythm Gastrointestinal: soft, No distended Musculoskeletal: nl extremities to inspection Results Result Diagram: 02/12/17 0803 02/12/17 0803 Results 24 hrs Laboratory Tests Test 02/12/17 08:03 White Blood Count 5.1 Red Blood Count 3.56 L Hemoglobin 9.9 L Hematocrit 31.6 L Mean Corpuscular Volume 88.8 Mean Corpuscular Hemoglobin 27.8 L Mean Corpuscular Hemoglobin Concent 31.3 L Red Cell Distribution Width 15.4 H Platelet Count 376 Mean Platelet Volume 11.5 H Neutrophils % 50.5 Lymphocytes % 32.9 Monocytes % 11.5 H Eosinophils % 3.1 Basophils % 1.4 Nucleated Red Blood Cells % 0.0 Neutrophils # 2.6 Lymphocytes # 1.7 Monocytes # 0.6 Eosinophils # 0.2 Basophils # 0.1 Nucleated Red Blood Cells # 0.0 Sodium Level 145 H Potassium Level 3.6 Chloride Level 103 Carbon Dioxide Level 30 Anion Gap 16 Blood Urea Nitrogen 8 Creatinine 0.69 Glucose Level 92 # Calcium Level 9.3 Medications Medications Current Medications Acetaminophen (Tylenol Tab) 650 mg Q4H PRN PO pain/fever Last administered on 02/12/17 04:31; Admin Dose 650 MG; Start 12/31/16 at 01:00 Hydralazine HCl (Apresoline) 25 mg Q6H PRN PO sbp>160; Start 12/31/16 at 01:00 Enalaprilat (Vasotec Iv) 1.25 mg Q6H PRN IV sbp>160; Start 12/31/16 at 01:00 Ondansetron HCl (Zofran Inj) 4 mg Q4H PRN IV nausea; Start 12/31/16 at 01:00 Hydralazine HCl (Apresoline) 10 mg Q4H PRN IV ELEVATED SYSTOLIC BP Last administered on 11/13/17at 22:10; Admin Dose 10 MG; Start 12/31/16 at 05:30 IV Flush (NS 10 ml) 10 ml PRN PRN IV IV PROTOCOL; Start 01/02/17 at 17:00 Lorazepam (Ativan) 2 mg Q2H PRN IV PRN Agitation. Last administered on 05:57; Admin Dose 2 MG; Start 01/04/17 at 09:00 Carbamazepine (Tegretol Susp (Ped)) 400 mg BID NGT Last administered on 10:07; Admin Dose 400 MG; Start 01/22/17 at 21:00 Lansoprazole (Prevacid) 30 mg BID@06,18 NGT Last administered on 02/12/17 05: 51; Admin Dose 30 MG; Start 01/24/17 at 18:00 Docusate Sodium (Colace Liquid Cup) 100 mg BID NGT Last administered on 10:07; Admin Dose 100 MG; Start 01/25/17 at 21:00 Quetiapine Fumarate 200 mg 200 mg Q6 NGT Last administered on 02/12/17 12:38 ; Admin Dose 200 MG; Start 01/27/17 at 12:00 Dextrose/Sodium Chloride (D5-1/2ns) 1,000 ml @ 75 mls/hr [id number] IV Last administered on 02/12/17 12:50; Admin Dose 75 MLS/HR; Start 01/27/17 at 09:30 Propranolol HCl (Inderal Iv) 2 mg BID IV Last administered on 02/12/17 10:09 ; Admin Dose 2 MG; Start 02/01/17 at 17:00 Dantrolene Sodium (Dantrium) 25 mg TID PO Last administered on 02/12/17 13:35 ; Admin Dose 25 MG; Start 02/01/17 at 18:00 Bromocriptine Mesylate (Parlodel) 2.5 mg TID PO Last administered on 13:35; Admin Dose 2.5 MG; Start 02/01/17 at 21:00 Amantadine HCl (Symmetrel) 200 mg BID GTB Last administered on 02/12/17 10:09 ; Admin Dose 200 MG; Start 02/01/17 at 18:00 Diphenhydramine HCl (Benadryl) 50 mg Q4H PRN IV sedation Last administered on 02/12/17 03:56; Admin Dose 50 MG; Start 02/05/17 at 07:00 Thiamine HCl (Vitamin B1) 100 mg DAILY NGT Last administered on 02/12/17 10: 09; Admin Dose 100 MG; Start 02/05/17 at 09:30 Nystatin (Nystatin Powder) 1 applic BID TOP Last administered on 02/12/17 10: 09; Admin Dose 1 APPLIC; Start 02/08/17 at 11:00 Levofloxacin (Levaquin) 750 mg DAILY@06 NGT Last administered on 02/12/17 05: 51; Admin Dose 750 MG; Start 02/09/17 at 10:30 Levetiracetam (Keppra Liquid) 500 mg BID GTB Last administered on 02/12/17 10 :07; Admin Dose 500 MG; Start 02/09/17 at 21:00 MAUDE MELÉNDEZ Feb 12, 2017 13:54
--- NOTE | 2017-02-12 16:30 | PN ---
Date/Time of Note Date/Time of Note DATE: 02/12/17 TIME: 16:29 Assessment/Plan Lines/Catheters Lewis in Place (from Nrs): No Assessment/Plan Chief Complaint/Hosp Course IMPRESSION: Respiratory failure. SP SP tracheostomy continue vent support Discussed with the nursing staff. Problems: Subjective 24 Hr Interval Summary Constitutional: improved Pain Control: mild Exam/Review of Systems Vital Signs Vitals Vital Signs Date Time Temp Pulse Resp B/P Pulse Ox O2 Delivery O2 Flow Rate FiO2 02/12/17 15:23 99.0 82 17 108/65 100 02/12/17 13:05 5.0 02/12/17 09:30 28 02/10/17 16:00 Mechanical Ventilator Intake and Output 02/11/17 02/11/17 02/12/17 14:59 22:59 06:59 Intake Total 900 ml 2088 ml Output Total 1200 ml 700 ml Balance -300 ml 1388 ml Exam ENMT: mucosa pink and moist, nl external ears & nose, nl lips & teeth, nl nasal mucosa & septum Neck: non-tender, supple Respiratory: clear to auscultation, normal air movement Cardiovascular: nl pulses, regular rate and rhythm Gastrointestinal: nl liver, spleen, non-tender, soft Results Result Diagram: 02/12/17 0803 02/12/17 0803 JOSE GUAJARDO MD Feb 12, 2017 16:29
[2017-02-13] VITALS (19 sets, daily range): BP systolic 102–127; BP diastolic 55–78; PULSE 70–85; RESP 13–21
[2017-02-13] MEDS: DEXTROSE 5%-0.45% NACL 1,000 ML IV SCH ×2 (00:33→14:29)
[2017-02-13] MEDS: QUETIAPINE 100 MG TAB NGT SCH ×4 (00:33→17:36)
[2017-02-13] MEDS: IPRATROPIUM (HFA) 12.9 GM INHALER INH SCH ×4 (01:23→20:07)
[2017-02-13] MEDS: ALBUTEROL HFA 8 GM INHALER INH SCH ×4 (01:24→20:07)
[2017-02-13] MEDS: LANSOPRAZOLE 30 MG CAP NGT SCH ×2 (06:29→17:35)
[2017-02-13] MEDS: LEVOFLOXACIN 750 MG TABLET NGT SCH (06:29)
[2017-02-13] MEDS: AMANTADINE 100 MG/10 ML POSYR GTB SCH ×2 (09:04→20:56)
[2017-02-13] MEDS: LEVETIRACETAM (100 MG/ML) 5ML CUP GTB SCH ×2 (09:04→20:57)
[2017-02-13] MEDS: DOCUSATE SODIUM 10 MG/ML (10ML CUP) NGT SCH ×2 (09:04→20:56)
[2017-02-13] MEDS: carBAMAZepine SUSP 20 MG/ML POSYG NGT SCH ×2 (09:04→20:56)
[2017-02-13] MEDS: THIAMINE 100 MG TAB NGT SCH (09:05)
[2017-02-13] MEDS: DANTROLENE 25 MG CAP PO SCH ×3 (09:05→20:57)
[2017-02-13] MEDS: BROMOCRIPTINE 2.5 MG TAB PO SCH ×3 (09:05→20:57)
[2017-02-13] MEDS: NYSTATIN 30 GM POWDER BTL TOP SCH ×2 (09:05→20:58)
[2017-02-13] MEDS: PROPRANOLOL 1 MG INJ IV SCH ×2 (09:06→20:55)
--- NOTE | 2017-02-13 10:19 | CONS ---
Date/Time of Note Date/Time of Note DATE: 02/13/17 TIME: 10:18 Consult Date/Type/Reason Admit Date/Time Dec 31, 2016 at 00:30 Initial Consult Date 12/31/16 Type of Consultation: Pulmonary Ordering Provider: JEAN MARIE BRAGG MD Subjective Awake alert comfortable on cool aerosol this morning. Objective Vital Signs Date Time Temp Pulse Resp B/P Pulse Ox O2 Delivery O2 Flow Rate FiO2 02/13/17 08:12 70 02/13/17 08:05 5.0 28 02/13/17 07:11 98.5 13 111/72 100 02/10/17 16:00 Mechanical Ventilator Intake and Output 02/12/17 02/12/17 02/13/17 15:00 23:00 07:00 Intake Total 862 ml 2312 ml Output Total 1500 ml Balance 862 ml 812 ml Exam GENERAL: Well-nourished well-developed gentleman on cool aerosol via tracheostomy VITAL SIGNS: per chart NECK: Supple. No JVD or lymphadenopathy. CARDIAC EXAM: S1, S2. No added sounds or murmurs. CHEST: Diminished air entry bilaterally with rales right base. ABDOMEN: Soft, nontender. No guarding or rebound. EXTREMITIES: No cyanosis, clubbing or edema. NEUROLOGIC: Generalized weakness. No focal deficits. Results/Medications Result Diagram: 02/12/1780202/12/17 08 Medications Current Medications Acetaminophen (Tylenol Tab) 650 mg Q4H PRN PO pain/fever Last administered on 02/12/17 04:31; Admin Dose 650 MG; Start 12/31/16 at 01:00 Hydralazine HCl (Apresoline) 25 mg Q6H PRN PO sbp>160; Start 12/31/16 at 01:00 Enalaprilat (Vasotec Iv) 1.25 mg Q6H PRN IV sbp>160; Start 12/31/16 at 01:00 Ondansetron HCl (Zofran Inj) 4 mg Q4H PRN IV nausea; Start 12/31/16 at 01:00 Hydralazine HCl (Apresoline) 10 mg Q4H PRN IV ELEVATED SYSTOLIC BP Last administered on 02/01/17 22:10; Admin Dose 10 MG; Start 12/31/16 at 05:30 IV Flush (NS 10 ml) 10 ml PRN PRN IV IV PROTOCOL; Start 01/02/17 at 17:00 Lorazepam (Ativan) 2 mg Q2H PRN IV PRN Agitation. Last administered on 05:57; Admin Dose 2 MG; Start 01/04/17 at 09:00 Carbamazepine (Tegretol Susp (Ped)) 400 mg BID NGT Last administered on 09:04; Admin Dose 400 MG; Start 01/22/17 at 21:00 Lansoprazole (Prevacid) 30 mg BID@06,18 NGT Last administered on 02/13/17 06: 29; Admin Dose 30 MG; Start 01/24/17 at 18:00 Docusate Sodium (Colace Liquid Cup) 100 mg BID NGT Last administered on 09:04; Admin Dose 100 MG; Start 01/25/17 at 21:00 Quetiapine Fumarate 200 mg 200 mg Q6 NGT Last administered on 02/13/17 06:30 ; Admin Dose 200 MG; Start 01/27/17 at 12:00 Dextrose/Sodium Chloride (D5-1/2ns) 1,000 ml @ 75 mls/hr [id number] IV Last administered on 02/13/17 00:33; Admin Dose 75 MLS/HR; Start 01/27/17 at 09:30 Propranolol HCl (Inderal Iv) 2 mg BID IV Last administered on 02/13/17 09:06 ; Admin Dose 2 MG; Start 02/01/17 at 17:00 Dantrolene Sodium (Dantrium) 25 mg TID PO Last administered on 02/13/17 09:05 ; Admin Dose 25 MG; Start 02/01/17 at 18:00 Bromocriptine Mesylate (Parlodel) 2.5 mg TID PO Last administered on 09:05; Admin Dose 2.5 MG; Start 02/01/17 at 21:00 Amantadine HCl (Symmetrel) 200 mg BID GTB Last administered on 02/13/17 09:04 ; Admin Dose 200 MG; Start 02/01/17 at 18:00 Diphenhydramine HCl (Benadryl) 50 mg Q4H PRN IV sedation Last administered on 11/24/17at 03:56; Admin Dose 50 MG; Start 02/05/17 at 07:00 Thiamine HCl (Vitamin B1) 100 mg DAILY NGT Last administered on 02/13/17 09: 05; Admin Dose 100 MG; Start 02/05/17 at 09:30 Nystatin (Nystatin Powder) 1 applic BID TOP Last administered on 02/13/17 09: 05; Admin Dose 1 APPLIC; Start 02/08/17 at 11:00 Levofloxacin (Levaquin) 750 mg DAILY@06 NGT Last administered on 02/13/17 06: 29; Admin Dose 750 MG; Start 02/09/17 at 10:30 Levetiracetam (Keppra Liquid) 500 mg BID GTB Last administered on 02/13/17 09 :04; Admin Dose 500 MG; Start 02/09/17 at 21:00 Assessment/Plan Chief Complaint/Hosp Course IMP: 1. Hypoxic respiratory failure/Vent Dependence/failure to wean. Now with tracheostomy on cool aerosol 2. Acute Lung Injury/ARDS, clinically resolved. 3. History of drug overdose 4. 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 Significant improvement with treatment of NMS 5. ALEX 6. Anemia, likely of chronic disease RECS: 1. Status post tracheostomy and PEG. 2. Continue cool aerosol during the day. If stable I will advance to cool aerosol 24 hours as tolerated, then decrease tracheostomy size and PMV trials. 3. Tube feeds/Free H20 4. Minimize sedatives as tolerated 5. Continue antipsychotics continues treatment for NMS Problems: BRIANNA SAAVEDRA MD, [facility] Feb 13, 2017 10:19
--- NOTE | 2017-02-13 12:25 | PN ---
Date/Time of Note Date/Time of Note DATE: 02/13/17 TIME: 12:25 Assessment/Plan Lines/Catheters IV Catheter Type (from Nrsg): PICC Line Lewis in Place (from Nrsg): No Assessment/Plan Chief Complaint/Hosp Course IMPRESSION: Respiratory failure. SP SP tracheostomy continue vent support Discussed with the nursing staff. Problems: Subjective 24 Hr Interval Summary Constitutional: improved Pain Control: mild Exam/Review of Systems Vital Signs Vitals Vital Signs Date Time Temp Pulse Resp B/P Pulse Ox O2 Delivery O2 Flow Rate FiO2 02/13/17 12:10 77 02/13/17 11:46 97 28 02/13/17 08:05 5.0 02/13/17 07:11 98.5 13 111/72 02/10/17 16:00 Mechanical Ventilator Intake and Output 02/12/17 02/12/17 02/13/17 15:00 23:00 07:00 Intake Total 862 ml 2312 ml Output Total 1500 ml Balance 862 ml 812 ml Exam Neck: non-tender, supple Respiratory: clear to auscultation, normal air movement Cardiovascular: nl pulses, regular rate and rhythm Gastrointestinal: nl liver, spleen, non-tender, soft Results Result Diagram: 02/12/1780202/12/1703 JOSE GUAJARDO MD Feb 13, 2017 12:25
--- NOTE | 2017-02-13 13:06 | PN ---
Date/Time of Note Date/Time of Note DATE: 02/13/17 TIME: 13:04 Assessment/Plan VTE Prophylaxis VTE Prophylaxis Intervention: SCD's Lines/Catheters Urinary Cath still in place: No Assessment/Plan Chief Complaint/Hosp Course 1. Seizure, no previous history, one episode 02/08, likely related to medication withdrawal including benzodiazepines and Depakote and other medication patient has been on for almost a month. No further seizures. Keppra has been added, he was loaded with 1 g then 500 mg po twice daily. EEG post witnessed seizure only showing some encephalopathy, no active seizures.. Patient already had an ample number of imaging done including a recent CAT scan of the brain which was negative. RPR is negative 2. Resolving severe encephalopathy secondary to drug abuse likely Bath salts and/or synthetic marijuana and also bipolar disorder with violent behaviors and noncompliance with medications per previous psychiatry notes. Now possibility of neuroleptic malignant syndrome secondary to medication interactions. Patient awake, alert and following commands, less vent requirement. OFF Ativan, fentanyl and propofol x 8 days. Stable on telemetry with 1:[address] head 3 since admission are both wnl, EEG x3 showing encephalopathy, MRI brain x1 wnl. RPR negative and Ammonia level wnl. S/p Tracheostomy and PEG tube placement On Inderal, bromocriptine, amantadine, dantrolene, propanolol for NMS treatment for 6 more days to complete total of 14 days On Seroquel and Tegretol for psych. Keppra now added given episode of seizure Thiamine po. 3. Acute respiratory Failure secondary to severe Encephalopathy from Drug overuse, intubated, sedated and paralysed. Patient was briefly extubated last week for 2-1/2 hours but had to be reintubated due to inability to protect his airway, of note he was still on sedating agents. Patient weaned off the vent and is now on cool aerosol, further plans per pulmonology 4. Bipolar disorder: Likely noncompliant with psychiatric medications. Medication resumed and adjusted to outpatient dosing based on the note from psychiatry 5 days prior to admission that were able to obtain last Wednesday, patient Seroquel can even be titrated higher, according to the notes he was on Seroquel XR, increased to 1000 mg nightly per the latest note. On Seroquel 200 mg QID and Carbamazepine to 400 mg twice daily. Again per the girlfriend it is very likely that the patient was not fully compliant. Also talked to Joel yesterday, very familiar with this patient at the [facility], patient again runs manic and is always agitated at baseline this is despite the multiple medications he has been prescribed as an outpatient, unclear if just difficult to control versus noncompliant. Will need Psych Eval once trach capped and able to communicate. 5. Right foot Lisfranc fracture on admission : Pain control 6. Anemia: Hemoglobin stable at approx 9.0, status post 1 unit pRBC on 01/15. SCDs to lower extremities. Continue proton pump inhibitors. Tolerating tube feedings. 7. Polymicrobial tracheobronchitis including Staphylococcus aureus MSSA, Klebsiella pneumoniae, Enterobacter cloacae: Patient to complete 14 days of Levaquin 8. MDR Klebsiella pneumoniae UTI: Patient to complete 7 day course of amikacin tomorrow 02/10. Antibiotics can be discontinued after tomorrow's dose, pharmacy notified. Condom catheter Contact isolation Prophylaxis: SCDs for DVT prophylaxis, Protonix for GI prophylaxis Disposition: On telemetry, starting to wean off of ventilator. He is a bipolar that seems to be mostly manic most of the time and noncompliant with medications at all. Drug use is an issue. Needs Psych eval I have discussed the patient's current clinical status and need for psychiatric assistance with Joel at the [facility] (# [phone]) that patient attends Appreciate recommendations from Dr. John, to complete treatment for NMS for 7 more days. Jayda, the patient's 1/2 sister has made us understand that she will not be involved in the primary caregiving of patient and he will need to be placed at the time of discharge no matter what his condition. Problems: Subjective 24 Hr Interval Summary Constitutional: no complaints Exam/Review of Systems Vital Signs Vitals Vital Signs Date Time Temp Pulse Resp B/P Pulse Ox O2 Delivery O2 Flow Rate FiO2 02/13/17 12:58 98.5 78 16 127/78 100 02/13/17 11:46 28 02/13/17 08:05 5.0 02/10/17 16:00 Mechanical Ventilator Intake and Output 02/12/17 02/12/17 02/13/17 15:00 23:00 07:00 Intake Total 862 ml 2312 ml Output Total 1500 ml Balance 862 ml 812 ml Exam Constitutional: non-verbal Respiratory: clear to auscultation Cardiovascular: regular rate and rhythm Gastrointestinal: soft, No distended Musculoskeletal: nl extremities to inspection Results Result Diagram: 02/12/1703 02/12/17 0803 Medications Medications Current Medications Acetaminophen (Tylenol Tab) 650 mg Q4H PRN PO pain/fever Last administered on 02/12/17 04:31; Admin Dose 650 MG; Start 12/31/16 at 01:00 Hydralazine HCl (Apresoline) 25 mg Q6H PRN PO sbp>160; Start 12/31/16 at 01:00 Enalaprilat (Vasotec Iv) 1.25 mg Q6H PRN IV sbp>160; Start 12/31/16 at 01:00 Ondansetron HCl (Zofran Inj) 4 mg Q4H PRN IV nausea; Start 12/31/16 at 01:00 Hydralazine HCl (Apresoline) 10 mg Q4H PRN IV ELEVATED SYSTOLIC BP Last administered on 02/01/17 22:10; Admin Dose 10 MG; Start 12/31/16 at 05:30 IV Flush (NS 10 ml) 10 ml PRN PRN IV IV PROTOCOL; Start 01/02/17 at 17:00 Lorazepam (Ativan) 2 mg Q2H PRN IV PRN Agitation. Last administered on 05:57; Admin Dose 2 MG; Start 01/04/17 at 09:00 Carbamazepine (Tegretol Susp (Ped)) 400 mg BID NGT Last administered on 09:04; Admin Dose 400 MG; Start 01/22/17 at 21:00 Lansoprazole (Prevacid) 30 mg BID@,18 NGT Last administered on 02/13/17 06: 29; Admin Dose 30 MG; Start 01/24/17 at 18:00 Docusate Sodium (Colace Liquid Cup) 100 mg BID NGT Last administered on 09:04; Admin Dose 100 MG; Start 01/25/17 at 21:00 Quetiapine Fumarate 200 mg 200 mg Q6 NGT Last administered on 02/13/17 12:30 ; Admin Dose 200 MG; Start 01/27/17 at 12:00 Dextrose/Sodium Chloride (D5-1/2ns) 1,000 ml @ 75 mls/hr [id number] IV Last administered on 02/13/17 00:33; Admin Dose 75 MLS/HR; Start 01/27/17 at 09:30 Propranolol HCl (Inderal Iv) 2 mg BID IV Last administered on 02/13/17 09:06 ; Admin Dose 2 MG; Start 02/01/17 at 17:00 Dantrolene Sodium (Dantrium) 25 mg TID PO Last administered on 02/13/17 12:29 ; Admin Dose 25 MG; Start 02/01/17 at 18:00 Bromocriptine Mesylate (Parlodel) 2.5 mg TID PO Last administered on 12:30; Admin Dose 2.5 MG; Start 02/01/17 at 21:00 Amantadine HCl (Symmetrel) 200 mg BID GTB Last administered on 02/13/17 09:04 ; Admin Dose 200 MG; Start 02/01/17 at 18:00 Diphenhydramine HCl (Benadryl) 50 mg Q4H PRN IV sedation Last administered on 02/12/17 03:56; Admin Dose 50 MG; Start 02/05/17 at 07:00 Thiamine HCl (Vitamin B1) 100 mg DAILY NGT Last administered on 02/13/17 09: 05; Admin Dose 100 MG; Start 02/05/17 at 09:30 Nystatin (Nystatin Powder) 1 applic BID TOP Last administered on 02/13/17 09: 05; Admin Dose 1 APPLIC; Start 02/08/17 at 11:00 Levofloxacin (Levaquin) 750 mg DAILY@06 NGT Last administered on 02/13/17 06: 29; Admin Dose 750 MG; Start 02/09/17 at 10:30 Levetiracetam (Keppra Liquid) 500 mg BID GTB Last administered on 02/13/17 09 :04; Admin Dose 500 MG; Start 02/09/17 at 21:00 MAUDE MELÉNDEZ Feb 13, 2017 13:06
[2017-02-13] MEDS: ACETAMINOPHEN 325 MG TAB PO PRN ×2 (14:29→20:57)
[2017-02-14] VITALS (15 sets, daily range): BP systolic 105–131; BP diastolic 64–80; PULSE 75–82; RESP 15–20
[2017-02-14] MEDS: QUETIAPINE 100 MG TAB NGT SCH ×4 (00:14→17:20)
[2017-02-14] MEDS: IPRATROPIUM (HFA) 12.9 GM INHALER INH SCH ×4 (01:33→19:46)
[2017-02-14] MEDS: ALBUTEROL HFA 8 GM INHALER INH SCH ×4 (01:33→19:46)
[2017-02-14] MEDS: ACETAMINOPHEN 325 MG TAB PO PRN ×2 (04:48→17:20)
[2017-02-14] MEDS: DEXTROSE 5%-0.45% NACL 1,000 ML IV SCH ×2 (04:49→17:21)
[2017-02-14] MEDS: LANSOPRAZOLE 30 MG CAP NGT SCH ×2 (04:49→17:20)
[2017-02-14] MEDS: LEVOFLOXACIN 750 MG TABLET NGT SCH (05:27)
[2017-02-14] MEDS: DOCUSATE SODIUM 10 MG/ML (10ML CUP) NGT SCH ×2 (08:44→21:52)
[2017-02-14] MEDS: BROMOCRIPTINE 2.5 MG TAB PO SCH ×3 (08:44→21:52)
[2017-02-14] MEDS: DANTROLENE 25 MG CAP PO SCH ×3 (08:44→21:52)
[2017-02-14] MEDS: LEVETIRACETAM (100 MG/ML) 5ML CUP GTB SCH ×2 (08:44→21:52)
[2017-02-14] MEDS: THIAMINE 100 MG TAB NGT SCH (08:44)
[2017-02-14] MEDS: AMANTADINE 100 MG/10 ML POSYR GTB SCH ×2 (08:45→22:06)
[2017-02-14] MEDS: carBAMAZepine SUSP 20 MG/ML POSYG NGT SCH ×2 (08:45→22:06)
[2017-02-14] MEDS: PROPRANOLOL 1 MG INJ IV SCH ×2 (08:46→21:53)
[2017-02-14] MEDS: NYSTATIN 30 GM POWDER BTL TOP SCH ×2 (08:46→21:00)
[2017-02-14] MEDS: NICOTINE (21 MG/24 HR) PATCH TRANSDERM SCH (11:36)
--- NOTE | 2017-02-14 12:09 | CONS ---
Date/Time of Note Date/Time of Note DATE: 02/14/17 TIME: 12:09 Consult Date/Type/Reason Admit Date/Time Dec 31, 2016 at 00:30 Initial Consult Date 12/31/16 Type of Consultation: Pulmonary Ordering Provider: JEAN MARIE BRAGG MD Subjective Patient comfortable. No new events. Stable on cool aerosol no shortness of breath. Objective Vital Signs Date Time Temp Pulse Resp B/P Pulse Ox O2 Delivery O2 Flow Rate FiO2 02/14/17 11:39 5.0 28 02/14/17 11:39 69 20 92 Aerosol T Tube 02/14/17 11:31 98.8 111/77 Intake and Output 02/13/17 02/13/17 02/14/17 14:59 22:59 06:59 Intake Total 1000 ml 900 ml Output Total 2000 ml 1800 ml Balance -1000 ml -900 ml Exam GENERAL: Well-nourished well-developed gentleman on cool aerosol via tracheostomy VITAL SIGNS: per chart NECK: Supple. No JVD or lymphadenopathy. CARDIAC EXAM: S1, S2. No added sounds or murmurs. CHEST: Diminished air entry bilaterally with rales right base. ABDOMEN: Soft, nontender. No guarding or rebound. EXTREMITIES: No cyanosis, clubbing or edema. NEUROLOGIC: Generalized weakness. No focal deficits. Results/Medications Result Diagram: 02/12/1780202/12/17802 Medications Current Medications Acetaminophen (Tylenol Tab) 650 mg Q4H PRN PO pain/fever Last administered on 02/14/17 04:48; Admin Dose 650 MG; Start 12/31/16 at 01:00 Hydralazine HCl (Apresoline) 25 mg Q6H PRN PO sbp>160; Start 12/31/16 at 01:00 Enalaprilat (Vasotec Iv) 1.25 mg Q6H PRN IV sbp>160; Start 12/31/16 at 01:00 Ondansetron HCl (Zofran Inj) 4 mg Q4H PRN IV nausea; Start 12/31/16 at 01:00 Hydralazine HCl (Apresoline) 10 mg Q4H PRN IV ELEVATED SYSTOLIC BP Last administered on 02/01/17 22:10; Admin Dose 10 MG; Start 12/31/16 at 05:30 IV Flush (NS 10 ml) 10 ml PRN PRN IV IV PROTOCOL; Start 01/02/17 at 17:00 Lorazepam (Ativan) 2 mg Q2H PRN IV PRN Agitation. Last administered on 05:57; Admin Dose 2 MG; Start 01/04/17 at 09:00 Carbamazepine (Tegretol Susp (Ped)) 400 mg BID NGT Last administered on 08:45; Admin Dose 400 MG; Start 01/22/17 at 21:00 Lansoprazole (Prevacid) 30 mg BID@06,18 NGT Last administered on 02/14/17 04: 49; Admin Dose 30 MG; Start 01/24/17 at 18:00 Docusate Sodium (Colace Liquid Cup) 100 mg BID NGT Last administered on 08:44; Admin Dose 100 MG; Start 01/25/17 at 21:00 Quetiapine Fumarate 200 mg 200 mg Q6 NGT Last administered on 02/14/17 05:28 ; Admin Dose 200 MG; Start 01/27/17 at 12:00 Dextrose/Sodium Chloride (D5-1/2ns) 1,000 ml @ 75 mls/hr [id number] IV Last administered on 02/14/17 04:49; Admin Dose 75 MLS/HR; Start 01/27/17 at 09:30 Propranolol HCl (Inderal Iv) 2 mg BID IV Last administered on 02/14/17 08:46 ; Admin Dose 2 MG; Start 02/01/17 at 17:00 Dantrolene Sodium (Dantrium) 25 mg TID PO Last administered on 02/14/17 08:44 ; Admin Dose 25 MG; Start 02/01/17 at 18:00 Bromocriptine Mesylate (Parlodel) 2.5 mg TID PO Last administered on 08:44; Admin Dose 2.5 MG; Start 02/01/17 at 21:00 Amantadine HCl (Symmetrel) 200 mg BID GTB Last administered on 02/14/17 08:45 ; Admin Dose 200 MG; Start 02/01/17 at 18:00 Diphenhydramine HCl (Benadryl) 50 mg Q4H PRN IV sedation Last administered on 02/12/17 03:56; Admin Dose 50 MG; Start 02/05/17 at 07:00 Thiamine HCl (Vitamin B1) 100 mg DAILY NGT Last administered on 02/14/17 08: 44; Admin Dose 100 MG; Start 02/05/17 at 09:30 Nystatin (Nystatin Powder) 1 applic BID TOP Last administered on 02/14/17 08: 46; Admin Dose 1 APPLIC; Start 02/08/17 at 11:00 Levofloxacin (Levaquin) 750 mg DAILY@06 NGT Last administered on 02/14/17 05: 27; Admin Dose 750 MG; Start 02/09/17 at 10:30 Levetiracetam (Keppra Liquid) 500 mg BID GTB Last administered on 02/14/17 08 :44; Admin Dose 500 MG; Start 02/09/17 at 21:00 Nicotine (Nicoderm 21 Mg/ 24hr) 1 patch DAILY TRANSDERM Last administered on 11:36; Admin Dose 1 PATCH; Start 02/14/17 at 11:00 Assessment/Plan Chief Complaint/Hosp Course IMP: 1. Hypoxic respiratory failure/Vent Dependence/failure to wean. Now with tracheostomy on cool aerosol 2. Acute Lung Injury/ARDS, clinically resolved. 3. History of drug overdose 4. 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 Significant improvement with treatment of NMS 5. ALEX 6. Anemia, likely of chronic disease RECS: 1. Status post tracheostomy and PEG. 2. Continue cool aerosol during the day. Continue cortisol 24 hours per day. Will consider downsizing tracheostomy with PMV trials tomorrow. 3. Tube feeds/Free H20 4. Minimize sedatives as tolerated 5. Continue antipsychotics continues treatment for NMS Problems: BRIANNA SAAVEDRA MD, [facility] Feb 14, 2017 12:09
[2017-02-14] MEDS: IPRATROPIUM (NEB) 0.5 MG/2.5 ML AMP HHN PRN ×2 (14:08→19:44)
[2017-02-14] MEDS: ALBUTEROL 0.083% (NEB) 2.5 MG/3 ML AMP HHN PRN ×2 (14:08→19:44)
--- NOTE | 2017-02-14 14:33 | PN ---
Date/Time of Note Date/Time of Note DATE: 02/14/17 TIME: 14:33 Assessment/Plan VTE Prophylaxis VTE Prophylaxis Intervention: other Lines/Catheters IV Catheter Type (from Nrs): Central line still needed: No Urinary Cath still in place: No Assessment/Plan Chief Complaint/Hosp Course IMPRESSION: Respiratory failure. SP SP tracheostomy continue vent support Discussed with the nursing staff. Problems: Subjective 24 Hr Interval Summary Cardiovascular: no complaints Gastrointestinal: no complaints Genitourinary: no complaints Musculoskeletal: no complaints Skin: no complaints Neurologic: no complaints Exam/Review of Systems Vital Signs Vitals Vital Signs Date Time Temp Pulse Resp B/P Pulse Ox O2 Delivery O2 Flow Rate FiO2 02/14/17 12:33 80 02/14/17 11:39 5.0 28 02/14/17 11:39 20 92 Aerosol T Tube 02/14/17 11:31 98.8 111/77 Intake and Output 02/13/17 02/13/17 02/14/17 15:00 23:00 07:00 Intake Total 1000 ml 900 ml Output Total 2000 ml 1800 ml Balance -1000 ml -900 ml Results Result Diagram: 02/12/17 0803 02/12/17 0803 Medications Medications Current Medications Acetaminophen (Tylenol Tab) 650 mg Q4H PRN PO pain/fever Last administered on 02/14/17 04:48; Admin Dose 650 MG; Start 12/31/16 at 01:00 Hydralazine HCl (Apresoline) 25 mg Q6H PRN PO sbp>160; Start 12/31/16 at 01:00 Enalaprilat (Vasotec Iv) 1.25 mg Q6H PRN IV sbp>160; Start 12/31/16 at 01:00 Ondansetron HCl (Zofran Inj) 4 mg Q4H PRN IV nausea; Start 12/31/16 at 01:00 Hydralazine HCl (Apresoline) 10 mg Q4H PRN IV ELEVATED SYSTOLIC BP Last administered on 02/01/17 22:10; Admin Dose 10 MG; Start 12/31/16 at 05:30 IV Flush (NS 10 ml) 10 ml PRN PRN IV IV PROTOCOL; Start 01/02/17 at 17:00 Lorazepam (Ativan) 2 mg Q2H PRN IV PRN Agitation. Last administered on 05:57; Admin Dose 2 MG; Start 01/04/17 at 09:00 Carbamazepine (Tegretol Susp (Ped)) 400 mg BID NGT Last administered on 08:45; Admin Dose 400 MG; Start 01/22/17 at 21:00 Lansoprazole (Prevacid) 30 mg BID@06,18 NGT Last administered on 02/14/17 04: 49; Admin Dose 30 MG; Start 01/24/17 at 18:00 Docusate Sodium (Colace Liquid Cup) 100 mg BID NGT Last administered on 08:44; Admin Dose 100 MG; Start 01/25/17 at 21:00 Quetiapine Fumarate 200 mg 200 mg Q6 NGT Last administered on 02/14/17 12:39 ; Admin Dose 200 MG; Start 01/27/17 at 12:00 Dextrose/Sodium Chloride (D5-1/2ns) 1,000 ml @ 75 mls/hr [id number] IV Last administered on 02/14/17 04:49; Admin Dose 75 MLS/HR; Start 01/27/17 at 09:30 Propranolol HCl (Inderal Iv) 2 mg BID IV Last administered on 02/14/17 08:46 ; Admin Dose 2 MG; Start 02/01/17 at 17:00 Dantrolene Sodium (Dantrium) 25 mg TID PO Last administered on 02/14/17 12:39 ; Admin Dose 25 MG; Start 02/01/17 at 18:00 Bromocriptine Mesylate (Parlodel) 2.5 mg TID PO Last administered on 12:39; Admin Dose 2.5 MG; Start 02/01/17 at 21:00 Amantadine HCl (Symmetrel) 200 mg BID GTB Last administered on 02/14/17 08:45 ; Admin Dose 200 MG; Start 02/01/17 at 18:00 Diphenhydramine HCl (Benadryl) 50 mg Q4H PRN IV sedation Last administered on 02/12/17 03:56; Admin Dose 50 MG; Start 02/05/17 at 07:00 Thiamine HCl (Vitamin B1) 100 mg DAILY NGT Last administered on 02/14/17 08: 44; Admin Dose 100 MG; Start 02/05/17 at 09:30 Nystatin (Nystatin Powder) 1 applic BID TOP Last administered on 02/14/17 08: 46; Admin Dose 1 APPLIC; Start 02/08/17 at 11:00 Levofloxacin (Levaquin) 750 mg DAILY@06 NGT Last administered on 02/14/17 05: 27; Admin Dose 750 MG; Start 02/09/17 at 10:30 Levetiracetam (Keppra Liquid) 500 mg BID GTB Last administered on 02/14/17 08 :44; Admin Dose 500 MG; Start 02/09/17 at 21:00 Nicotine (Nicoderm 21 Mg/ 24hr) 1 patch DAILY TRANSDERM Last administered on 11:36; Admin Dose 1 PATCH; Start 02/14/17 at 11:00 JOSE GUAJARDO MD Feb 14, 2017 14:33
--- NOTE | 2017-02-14 16:52 | PN ---
Date/Time of Note Date/Time of Note DATE: 02/14/17 TIME: 16:51 Assessment/Plan VTE Prophylaxis VTE Prophylaxis Intervention: SCD's Lines/Catheters IV [facility]ter Type (from [facility]): Urinary Cath still in place: No Assessment/Plan Chief Complaint/Hosp Course 1. Seizure, no previous history, one episode 02/08, likely related to medication withdrawal including benzodiazepines and Depakote and other medication patient has been on for almost a month. No further seizures. Keppra has been added, he was loaded with 1 g then 500 mg po twice daily. EEG post witnessed seizure only showing some encephalopathy, no active seizures.. Patient already had an ample number of imaging done including a recent CAT scan of the brain which was negative. RPR is negative 2. Resolving severe encephalopathy secondary to drug abuse likely Bath salts and/or synthetic marijuana and also bipolar disorder with violent behaviors and noncompliance with medications per previous psychiatry notes. Now possibility of neuroleptic malignant syndrome secondary to medication interactions. Patient awake, alert and following commands, less vent requirement. OFF Ativan, fentanyl and propofol x 8 days. Stable on telemetry with 1:[address] head 3 since admission are both wnl, EEG x3 showing encephalopathy, MRI brain x1 wnl. RPR negative and Ammonia level wnl. S/p Tracheostomy and PEG tube placement On Inderal, bromocriptine, amantadine, dantrolene, propanolol for NMS treatment for 6 more days to complete total of 14 days On Seroquel and Tegretol for psych. Keppra now added given episode of seizure Thiamine po. 3. Acute respiratory Failure secondary to severe Encephalopathy from Drug overuse, intubated, sedated and paralysed. Patient was briefly extubated last week for 2-1/2 hours but had to be reintubated due to inability to protect his airway, of note he was still on sedating agents. Patient weaned off the vent and is now on cool aerosol, further plans per pulmonology 4. Bipolar disorder: Likely noncompliant with psychiatric medications. Medication resumed and adjusted to outpatient dosing based on the note from psychiatry 5 days prior to admission that were able to obtain last Wednesday, patient Seroquel can even be titrated higher, according to the notes he was on Seroquel XR, increased to 1000 mg nightly per the latest note. On Seroquel 200 mg QID and Carbamazepine to 400 mg twice daily. Again per the girlfriend it is very likely that the patient was not fully compliant. Also talked to Joel yesterday, very familiar with this patient at the [facility], patient again runs manic and is always agitated at baseline this is despite the multiple medications he has been prescribed as an outpatient, unclear if just difficult to control versus noncompliant. Will need Psych Eval once trach capped and able to communicate. 5. Right foot Lisfranc fracture on admission : Pain control 6. Anemia: Hemoglobin stable at approx 9.0, status post 1 unit pRBC on 01/15. SCDs to lower extremities. Continue proton pump inhibitors. Tolerating tube feedings. 7. Polymicrobial tracheobronchitis including Staphylococcus aureus MSSA, Klebsiella pneumoniae, Enterobacter cloacae: Patient to complete 14 days of Levaquin 8. MDR Klebsiella pneumoniae UTI: Patient to complete 7 day course of amikacin tomorrow 02/10. Antibiotics can be discontinued after tomorrow's dose, pharmacy notified. Condom catheter Contact isolation Prophylaxis: SCDs for DVT prophylaxis, Protonix for GI prophylaxis Disposition: On telemetry, starting to wean off of ventilator. He is a bipolar that seems to be mostly manic most of the time and noncompliant with medications at all. Drug use is an issue. Needs Psych eval I have discussed the patient's current clinical status and need for psychiatric assistance with Joel at the [facility] (# [phone]) that patient attends Appreciate recommendations from Dr. John, to complete treatment for NMS for 7 more days. Jayda, the patient's 1/2 sister has made us understand that she will not be involved in the primary caregiving of patient and he will need to be placed at the time of discharge no matter what his condition. Patient needs to be placed in a subacute facility, classification case manager aware Problems: Subjective 24 Hr Interval Summary Subjective hx not possible: pt non-verbal Exam/Review of Systems Vital Signs Vitals Vital Signs Date Time Temp Pulse Resp B/P Pulse Ox O2 Delivery O2 Flow Rate FiO2 02/14/17 16:29 81 02/14/17 15:56 98.2 106/68 100 T Tube 02/14/17 11:39 5.0 28 02/14/17 11:39 20 Intake and Output 02/13/17 02/13/17 02/14/17 15:00 23:00 07:00 Intake Total 1000 ml 900 ml Output Total 2000 ml 1800 ml Balance -1000 ml -900 ml Exam Constitutional: non-verbal Respiratory: clear to auscultation Cardiovascular: regular rate and rhythm Gastrointestinal: soft, No distended Musculoskeletal: nl extremities to inspection Results Result Diagram: 02/12/1780202/12/17802 Medications Medications Current Medications Acetaminophen (Tylenol Tab) 650 mg Q4H PRN PO pain/fever Last administered on 02/14/17 04:48; Admin Dose 650 MG; Start 12/31/16 at 01:00 Hydralazine HCl (Apresoline) 25 mg Q6H PRN PO sbp>160; Start 12/31/16 at 01:00 Enalaprilat (Vasotec Iv) 1.25 mg Q6H PRN IV sbp>160; Start 12/31/16 at 01:00 Ondansetron HCl (Zofran Inj) 4 mg Q4H PRN IV nausea; Start 12/31/16 at 01:00 Hydralazine HCl (Apresoline) 10 mg Q4H PRN IV ELEVATED SYSTOLIC BP Last administered on 02/01/17 22:10; Admin Dose 10 MG; Start 12/31/16 at 05:30 IV Flush (NS 10 ml) 10 ml PRN PRN IV IV PROTOCOL; Start 01/02/17 at 17:00 Lorazepam (Ativan) 2 mg Q2H PRN IV PRN Agitation. Last administered on 05:57; Admin Dose 2 MG; Start 01/04/17 at 09:00 Carbamazepine (Tegretol Susp (Ped)) 400 mg BID NGT Last administered on 08:45; Admin Dose 400 MG; Start 01/22/17 at 21:00 Lansoprazole (Prevacid) 30 mg BID@,18 NGT Last administered on 02/14/17 04: 49; Admin Dose 30 MG; Start 01/24/17 at 18:00 Docusate Sodium (Colace Liquid Cup) 100 mg BID NGT Last administered on 08:44; Admin Dose 100 MG; Start 01/25/17 at 21:00 Quetiapine Fumarate 200 mg 200 mg Q6 NGT Last administered on 02/14/17 12:39 ; Admin Dose 200 MG; Start 01/27/17 at 12:00 Dextrose/Sodium Chloride (D5-1/2ns) 1,000 ml @ 75 mls/hr [id number] IV Last administered on 02/14/17 04:49; Admin Dose 75 MLS/HR; Start 01/27/17 at 09:30 Propranolol HCl (Inderal Iv) 2 mg BID IV Last administered on 02/14/17 08:46 ; Admin Dose 2 MG; Start 02/01/17 at 17:00 Dantrolene Sodium (Dantrium) 25 mg TID PO Last administered on 02/14/17 12:39 ; Admin Dose 25 MG; Start 02/01/17 at 18:00 Bromocriptine Mesylate (Parlodel) 2.5 mg TID PO Last administered on 12:39; Admin Dose 2.5 MG; Start 02/01/17 at 21:00 Amantadine HCl (Symmetrel) 200 mg BID GTB Last administered on 02/14/17 08:45 ; Admin Dose 200 MG; Start 02/01/17 at 18:00 Diphenhydramine HCl (Benadryl) 50 mg Q4H PRN IV sedation Last administered on 02/12/17 03:56; Admin Dose 50 MG; Start 02/05/17 at 07:00 Thiamine HCl (Vitamin B1) 100 mg DAILY NGT Last administered on 02/14/17 08: 44; Admin Dose 100 MG; Start 02/05/17 at 09:30 Nystatin (Nystatin Powder) 1 applic BID TOP Last administered on 02/14/17 08: 46; Admin Dose 1 APPLIC; Start 02/08/17 at 11:00 Levofloxacin (Levaquin) 750 mg DAILY@06 NGT Last administered on 02/14/17 05: 27; Admin Dose 750 MG; Start 02/09/17 at 10:30 Levetiracetam (Keppra Liquid) 500 mg BID GTB Last administered on 02/14/17 08 :44; Admin Dose 500 MG; Start 02/09/17 at 21:00 Nicotine (Nicoderm 21 Mg/ 24hr) 1 patch DAILY TRANSDERM Last administered on 11 /26/17at 11:36; Admin Dose 1 PATCH; Start 02/14/17 at 11:00 MAUDE MELÉNDEZ Feb 14, 2017 16:52
[2017-02-14] MEDS: LORAZEPAM 2 MG INJ IV PRN (20:34)
[2017-02-14] MEDS: DIPHENHYDRAMINE 50 MG INJ IV PRN (21:53)
[2017-02-15] VITALS (11 sets, daily range): BP systolic 110–128; BP diastolic 63–76; PULSE 68–85; RESP 18–19
[2017-02-15] MEDS: QUETIAPINE 100 MG TAB NGT SCH ×4 (00:38→18:05)
[2017-02-15] MEDS: IPRATROPIUM (HFA) 12.9 GM INHALER INH SCH ×2 (01:32→20:00)
[2017-02-15] MEDS: ALBUTEROL HFA 8 GM INHALER INH SCH ×2 (01:33→20:00)
[2017-02-15] MEDS: DEXTROSE 5%-0.45% NACL 1,000 ML IV SCH ×2 (05:04→22:42)
[2017-02-15] MEDS: LANSOPRAZOLE 30 MG CAP NGT SCH ×2 (05:04→18:05)
[2017-02-15] MEDS: LEVOFLOXACIN 750 MG TABLET NGT SCH (05:04)
[2017-02-15] MEDS: DANTROLENE 25 MG CAP PO SCH ×3 (08:57→22:44)
[2017-02-15] MEDS: NICOTINE (21 MG/24 HR) PATCH TRANSDERM SCH (08:57)
[2017-02-15] MEDS: LEVETIRACETAM (100 MG/ML) 5ML CUP GTB SCH ×2 (08:57→22:43)
[2017-02-15] MEDS: NYSTATIN 30 GM POWDER BTL TOP SCH ×2 (08:58→22:45)
[2017-02-15] MEDS: BROMOCRIPTINE 2.5 MG TAB PO SCH ×3 (08:58→22:44)
[2017-02-15] MEDS: THIAMINE 100 MG TAB NGT SCH (08:58)
[2017-02-15] MEDS: PROPRANOLOL 1 MG INJ IV SCH ×2 (08:59→22:45)
[2017-02-15] MEDS: DOCUSATE SODIUM 10 MG/ML (10ML CUP) NGT SCH ×2 (08:59→22:42)
[2017-02-15] MEDS: LORAZEPAM 2 MG INJ IV PRN ×3 (09:06→18:12)
[2017-02-15] MEDS: carBAMAZepine SUSP 20 MG/ML POSYG NGT SCH ×2 (09:06→22:44)
[2017-02-15 09:10] LABS: CALCIUM 8.7 mg/dl (8.4-10.2); CREATININE 0.72 mg/dl (0.61-1.24); POTASSIUM 3.8 mmol/L (3.5-5.1)
[2017-02-15] MEDS: AMANTADINE 100 MG/10 ML POSYR GTB SCH ×2 (09:20→22:43)
--- NOTE | 2017-02-15 10:44 | PN ---
Date/Time of Note Date/Time of Note DATE: 02/15/17 TIME: 10:35 Assessment/Plan VTE Prophylaxis VTE Prophylaxis Intervention: SCD's Lines/Catheters IV Catheter Type (from Nrs): PICC Line Central line still needed: Yes Urinary Cath still in place: No Assessment/Plan Assessment/Plan 1. Seizure, no previous history, one episode 02/08, likely related to medication withdrawal including benzodiazepines and Depakote and other medication patient has been on for almost a month. No further seizures. Keppra has been added, he was loaded with 1 g then 500 mg po twice daily. EEG post witnessed seizure only showing some encephalopathy, no active seizures.. Patient already had an ample number of imaging done including a recent CAT scan of the brain which was negative. RPR is negative 2. Resolving severe encephalopathy secondary to drug abuse likely Bath salts and/or synthetic marijuana and also bipolar disorder with violent behaviors and noncompliance with medications per previous psychiatry notes. Now possibility of neuroleptic malignant syndrome secondary to medication interactions. Patient awake, alert and following commands, less vent requirement. OFF Ativan, fentanyl and propofol for several days. Stable on telemetry with 1:1 sitter; may not need sitter anymore. CT head 3 since admission are both wnl, EEG x3 showing encephalopathy, MRI brain x1 wnl. RPR negative and Ammonia level wnl. S/p Tracheostomy and PEG tube placement: will try to de-canulate her today. On Inderal, bromocriptine, amantadine, dantrolene, propanolol for NMS treatment for 6 more days to complete total of 14 days On Seroquel and Tegretol for psych. Keppra now added given episode of seizure Thiamine po. 3. Acute respiratory Failure secondary to severe Encephalopathy from Drug overuse, intubated, sedated and paralysed. Patient was briefly extubated last week for 2-1/2 hours but had to be reintubated due to inability to protect his airway, of note he was still on sedating agents. Patient weaned off the vent and is now on cool aerosol, further plans per pulmonology; will attempt to de-canulate her today. 4. Bipolar disorder: Likely noncompliant with psychiatric medications. Medication resumed and adjusted to outpatient dosing based on the note from psychiatry 5 days prior to admission that were able to obtain last Wednesday, patient Seroquel can even be titrated higher, according to the notes he was on Seroquel XR, increased to 1000 mg nightly per the latest note. On Seroquel 200 mg QID and Carbamazepine to 400 mg twice daily. Again per the girlfriend it is very likely that the patient was not fully compliant. Also talked to Joel yesterday, very familiar with this patient at the [facility][1], patient again runs manic and is always agitated at baseline this is despite the multiple medications he has been prescribed as an outpatient, unclear if just difficult to control versus noncompliant. Will need Psych Eval once trach capped and able to communicate. 5. Right foot Lisfranc fracture on admission : Pain control 6. Anemia: Hemoglobin stable at approx 9.0, status post 1 unit pRBC on 01/15. SCDs to lower extremities. Continue proton pump inhibitors. Tolerating tube feedings. 7. Polymicrobial tracheobronchitis including Staphylococcus aureus MSSA, Klebsiella pneumoniae, Enterobacter cloacae: Patient to complete 14 days of Levaquin 8. MDR Klebsiella pneumoniae UTI: Patient to complete 7 day course of amikacin tomorrow 02/10. Antibiotics can be discontinued after tomorrow's dose, pharmacy notified. Condom catheter Contact isolation Prophylaxis: SCDs for DVT prophylaxis, Protonix for GI prophylaxis Disposition: On telemetry, starting to wean off of ventilator. He is a bipolar that seems to be mostly manic most of the time and noncompliant with medications at all. Drug use is an issue. Needs Psych eval I have discussed the patient's current clinical status and need for psychiatric assistance with Joel at the [facility] (# [phone]) that patient attends Appreciate recommendations from Dr. John, to complete treatment for NMS for 7 more days. Jayda, the patient's 1/2 sister has made us understand that she will not be involved in the primary caregiving of patient and he will need to be placed at the time of discharge no matter what his condition. Patient needs to be placed in a subacute facility, case finishing machine adjuster aware Subjective 24 Hr Interval Summary Free Text/Dictation Trached and this is the first day off of the ventilator. He is awake and alert. Subjective hx not possible: pt non-verbal, other (tracheostomy) Constitutional: no complaints Eyes: no complaints Exam/Review of Systems Vital Signs Vitals Vital Signs Date Time Temp Pulse Resp B/P Pulse Ox O2 Delivery O2 Flow Rate FiO2 02/15/17 08:43 80 02/15/17 07:43 98.2 18 112/76 99 02/15/17 05:29 Aerosol 5.0 28 T Tube Intake and Output 02/14/17 02/14/17 02/15/17 15:00 23:00 07:00 Intake Total 1000 ml 1000 ml Output Total 1200 ml 1250 ml Balance -200 ml -250 ml Exam Constitutional: alert, non-verbal Psych: no complaints Head: normocephalic Eyes: nl conjunctiva ENMT: nl external ears & nose Neck: other (trachesotomy) Cardiovascular: regular rate and rhythm Gastrointestinal: other (PEG), soft Musculoskeletal: nl extremities to inspection Results Result Diagram: 02/12/17 0803 02/15/17 0809 Results 24 hrs Laboratory Tests Test 02/15/17 08:09 Sodium Level 142 Potassium Level 3.8 Chloride Level 103 Carbon Dioxide Level 28 Anion Gap 15 Blood Urea Nitrogen 8 Creatinine 0.72 Glucose Level 101 Calcium Level 8.7 Medications Medications Current Medications Acetaminophen (Tylenol Tab) 650 mg Q4H PRN PO pain/fever Last administered on 02/14/17 17:20; Admin Dose 650 MG; Start 12/31/16 at 01:00 Hydralazine HCl (Apresoline) 25 mg Q6H PRN PO sbp>160; Start 12/31/16 at 01:00 Enalaprilat (Vasotec Iv) 1.25 mg Q6H PRN IV sbp>160; Start 12/31/16 at 01:00 Ondansetron HCl (Zofran Inj) 4 mg Q4H PRN IV nausea; Start 12/31/16 at 01:00 Hydralazine HCl (Apresoline) 10 mg Q4H PRN IV ELEVATED SYSTOLIC BP Last administered on 02/01/17 22:10; Admin Dose 10 MG; Start 12/31/16 at 05:30 IV Flush (NS 10 ml) 10 ml PRN PRN IV IV PROTOCOL; Start 01/02/17 at 17:00 Lorazepam (Ativan) 2 mg Q2H PRN IV PRN Agitation. Last administered on 09:06; Admin Dose 2 MG; Start 01/04/17 at 09:00 Carbamazepine (Tegretol Susp (Ped)) 400 mg BID NGT Last administered on 09:06; Admin Dose 400 MG; Start 01/22/17 at 21:00 Lansoprazole (Prevacid) 30 mg BID@06,18 NGT Last administered on 02/15/17 05: 04; Admin Dose 30 MG; Start 01/24/17 at 18:00 Docusate Sodium (Colace Liquid Cup) 100 mg BID NGT Last administered on 21:52; Admin Dose 100 MG; Start 01/25/17 at 21:00 Quetiapine Fumarate 200 mg 200 mg Q6 NGT Last administered on 02/15/17 05:03 ; Admin Dose 200 MG; Start 01/27/17 at 12:00 Dextrose/Sodium Chloride (D5-1/2ns) 1,000 ml @ 75 mls/hr [id number] IV Last administered on 02/15/17 05:04; Admin Dose 75 MLS/HR; Start 01/27/17 at 09:30 Propranolol HCl (Inderal Iv) 2 mg BID IV Last administered on 02/15/17 08:59 ; Admin Dose 2 MG; Start 02/01/17 at 17:00 Dantrolene Sodium (Dantrium) 25 mg TID PO Last administered on 02/15/17 08:57 ; Admin Dose 25 MG; Start 02/01/17 at 18:00 Bromocriptine Mesylate (Parlodel) 2.5 mg TID PO Last administered on 08:58; Admin Dose 2.5 MG; Start 02/01/17 at 21:00 Amantadine HCl (Symmetrel) 200 mg BID GTB Last administered on 02/15/17 09:20 ; Admin Dose 200 MG; Start 02/01/17 at 18:00 Diphenhydramine HCl (Benadryl) 50 mg Q4H PRN IV sedation Last administered on 02/14/17 21:53; Admin Dose 50 MG; Start 02/05/17 at 07:00 Thiamine HCl (Vitamin B1) 100 mg DAILY NGT Last administered on 02/15/17 08: 58; Admin Dose 100 MG; Start 02/05/17 at 09:30 Nystatin (Nystatin Powder) 1 applic BID TOP Last administered on 02/15/17 08: 58; Admin Dose 1 APPLIC; Start 02/08/17 at 11:00 Levofloxacin (Levaquin) 750 mg DAILY@06 NGT Last administered on 02/15/17 05: 04; Admin Dose 750 MG; Start 02/09/17 at 10:30 Levetiracetam (Keppra Liquid) 500 mg BID GTB Last administered on 02/15/17 08 :57; Admin Dose 500 MG; Start 02/09/17 at 21:00 Nicotine (Nicoderm 21 Mg/ 24hr) 1 patch DAILY TRANSDERM Last administered on 08:57; Admin Dose 1 PATCH; Start 02/14/17 at 11:00 GABINO ALCANTARA MD Feb 15, 2017 10:44
--- NOTE | 2017-02-15 11:07 | CONS ---
Date/Time of Note Date/Time of Note DATE: 02/15/17 TIME: 11:06 Consult Date/Type/Reason Admit Date/Time Dec 31, 2016 at 00:30 Initial Consult Date 12/31/16 Type of Consultation: Pulmonary Ordering Provider: JEAN MARIE BRAGG MD Subjective Patient comfortable. No new events. Tolerating cool aerosol. Moderate secretions requiring frequent pulmonary toilet. Objective Vital Signs Date Time Temp Pulse Resp B/P Pulse Ox O2 Delivery O2 Flow Rate FiO2 02/15/17 08:43 80 02/15/17 07:43 98.2 18 112/76 99 02/15/17 05:29 Aerosol 5.0 28 T Tube Intake and Output 02/14/17 02/14/17 02/15/17 15:00 23:00 07:00 Intake Total 1000 ml 1000 ml Output Total 1200 ml 1250 ml Balance -200 ml -250 ml Exam GENERAL: Well-nourished well-developed gentleman on cool aerosol via tracheostomy VITAL SIGNS: per chart NECK: Supple. No JVD or lymphadenopathy. CARDIAC EXAM: S1, S2. No added sounds or murmurs. CHEST: Diminished air entry bilaterally with rales right base. ABDOMEN: Soft, nontender. No guarding or rebound. EXTREMITIES: No cyanosis, clubbing or edema. NEUROLOGIC: Generalized weakness. No focal deficits. Results/Medications Result Diagram: 02/12/17 0803 02/15/17 0809 Results 24 hrs Laboratory Tests Test 02/15/17 08:09 Sodium Level 142 Potassium Level 3.8 Chloride Level 103 Carbon Dioxide Level 28 Anion Gap 15 Blood Urea Nitrogen 8 Creatinine 0.72 Glucose Level 101 Calcium Level 8.7 Medications Current Medications Acetaminophen (Tylenol Tab) 650 mg Q4H PRN PO pain/fever Last administered on 02/14/17t 17:20; Admin Dose 650 MG; Start 12/31/16 at 01:00 Hydralazine HCl (Apresoline) 25 mg Q6H PRN PO sbp>160; Start 12/31/16 at 01:00 Enalaprilat (Vasotec Iv) 1.25 mg Q6H PRN IV sbp>160; Start 12/31/16 at 01:00 Ondansetron HCl (Zofran Inj) 4 mg Q4H PRN IV nausea; Start 12/31/16 at 01:00 Hydralazine HCl (Apresoline) 10 mg Q4H PRN IV ELEVATED SYSTOLIC BP Last administered on 02/01/17 22:10; Admin Dose 10 MG; Start 12/31/16 at 05:30 IV Flush (NS 10 ml) 10 ml PRN PRN IV IV PROTOCOL; Start 01/02/17 at 17:00 Lorazepam (Ativan) 2 mg Q2H PRN IV PRN Agitation. Last administered on 09:06; Admin Dose 2 MG; Start 01/04/17 at 09:00 Carbamazepine (Tegretol Susp (Ped)) 400 mg BID NGT Last administered on 09:06; Admin Dose 400 MG; Start 01/22/17 at 21:00 Lansoprazole (Prevacid) 30 mg BID@06,18 NGT Last administered on 02/15/17 05: 04; Admin Dose 30 MG; Start 01/24/17 at 18:00 Docusate Sodium (Colace Liquid Cup) 100 mg BID NGT Last administered on 21:52; Admin Dose 100 MG; Start 01/25/17 at 21:00 Quetiapine Fumarate 200 mg 200 mg Q6 NGT Last administered on 02/15/17 05:03 ; Admin Dose 200 MG; Start 01/27/17 at 12:00 Dextrose/Sodium Chloride (D5-1/2ns) 1,000 ml @ 75 mls/hr [id number] IV Last administered on 02/15/17 05:04; Admin Dose 75 MLS/HR; Start 01/27/17 at 09:30 Propranolol HCl (Inderal Iv) 2 mg BID IV Last administered on 02/15/17 08:59 ; Admin Dose 2 MG; Start 02/01/17 at 17:00 Dantrolene Sodium (Dantrium) 25 mg TID PO Last administered on 02/15/17 08:57 ; Admin Dose 25 MG; Start 02/01/17 at 18:00 Bromocriptine Mesylate (Parlodel) 2.5 mg TID PO Last administered on 08:58; Admin Dose 2.5 MG; Start 02/01/17 at 21:00 Amantadine HCl (Symmetrel) 200 mg BID GTB Last administered on 02/15/17 09:20 ; Admin Dose 200 MG; Start 02/01/17 at 18:00 Diphenhydramine HCl (Benadryl) 50 mg Q4H PRN IV sedation Last administered on 02/14/17 21:53; Admin Dose 50 MG; Start 02/05/17 at 07:00 Thiamine HCl (Vitamin B1) 100 mg DAILY NGT Last administered on 02/15/17 08: 58; Admin Dose 100 MG; Start 02/05/17 at 09:30 Nystatin (Nystatin Powder) 1 applic BID TOP Last administered on 02/15/17 08: 58; Admin Dose 1 APPLIC; Start 02/08/17 at 11:00 Levofloxacin (Levaquin) 750 mg DAILY@06 NGT Last administered on 02/15/17 05: 04; Admin Dose 750 MG; Start 02/09/17 at 10:30 Levetiracetam (Keppra Liquid) 500 mg BID GTB Last administered on 02/15/17 08 :57; Admin Dose 500 MG; Start 02/09/17 at 21:00 Nicotine (Nicoderm 21 Mg/ 24hr) 1 patch DAILY TRANSDERM Last administered on 08:57; Admin Dose 1 PATCH; Start 02/14/17 at 11:00 Assessment/Plan Chief Complaint/Hosp Course IMP: 1. Hypoxic respiratory failure/Vent Dependence/failure to wean. Now with tracheostomy on cool aerosol 2. Acute Lung Injury/ARDS, clinically resolved. 3. History of drug overdose 4. 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 Significant improvement with treatment of NMS 5. ALEX 6. Anemia, likely of chronic disease RECS: 1. Status post tracheostomy and PEG. 2. Continue cool aerosol during the day. Continue cool aerosol 24 hours per day. Moderate secretions noted will hold off on downsizing tracheostomy today. 3. Tube feeds/Free H20 4. Minimize sedatives as tolerated 5. Continue antipsychotics continues treatment for NMS Discussed with primary care team. Stable for transfer to subacute. Problems: BRIANNA SAAVEDRA MD, [facility] Feb 15, 2017 11:07
--- NOTE | 2017-02-15 18:45 | PN ---
Date/Time of Note Date/Time of Note DATE: 02/15/17 TIME: 18:45 Assessment/Plan Lines/Catheters IV Catheter Type (from Nrsg): PICC Line Lewis in Place (from Nrsg): No Assessment/Plan Chief Complaint/Hosp Course IMPRESSION: Respiratory failure. SP SP tracheostomy continue vent support Discussed with the nursing staff. Problems: Subjective 24 Hr Interval Summary Constitutional: improved Pain Control: mild Exam/Review of Systems Vital Signs Vitals Vital Signs Date Time Temp Pulse Resp B/P Pulse Ox O2 Delivery O2 Flow Rate FiO2 02/15/17 17:43 5.0 28 02/15/17 16:34 75 02/15/17 13:40 98 02/15/17 11:40 98.2 18 112/76 02/15/17 05:29 Aerosol T Tube Intake and Output 02/14/17 02/14/17 02/15/17 15:00 23:00 07:00 Intake Total 1000 ml 1000 ml Output Total 1200 ml 1250 ml Balance -200 ml -250 ml Exam ENMT: No intubated, No mucosa pink and moist, No nl external ears & nose, No nl lips & teeth, No nl nasal mucosa & septum, No other, No tympanic membranes Respiratory: clear to auscultation, normal air movement Cardiovascular: nl pulses, regular rate and rhythm Gastrointestinal: nl liver, spleen, non-tender, soft Results Result Diagram: 02/12/17 0803 02/15/17 0809 JOSE GUAJARDO MD Feb 15, 2017 18:45
[2017-02-15] MEDS: ALBUTEROL 0.083% (NEB) 2.5 MG/3 ML AMP HHN PRN (20:04)
[2017-02-15] MEDS: IPRATROPIUM (NEB) 0.5 MG/2.5 ML AMP HHN PRN (20:04)
[2017-02-16] VITALS (12 sets, daily range): BP systolic 102–117; BP diastolic 67–76; PULSE 7–86; RESP 17–19
[2017-02-16] MEDS: QUETIAPINE 100 MG TAB NGT SCH ×5 (00:26→23:48)
[2017-02-16] MEDS: LORAZEPAM 2 MG INJ IV PRN ×5 (00:27→23:05)
[2017-02-16] MEDS: IPRATROPIUM (HFA) 12.9 GM INHALER INH SCH (01:49)
[2017-02-16] MEDS: ALBUTEROL HFA 8 GM INHALER INH SCH (01:49)
[2017-02-16] MEDS: LEVOFLOXACIN 750 MG TABLET NGT SCH (05:19)
[2017-02-16] MEDS: LANSOPRAZOLE 30 MG CAP NGT SCH ×2 (05:19→17:53)
[2017-02-16] MEDS: LEVETIRACETAM (100 MG/ML) 5ML CUP GTB SCH ×2 (08:31→21:24)
[2017-02-16] MEDS: DANTROLENE 25 MG CAP PO SCH ×2 (08:32→21:24)
[2017-02-16] MEDS: THIAMINE 100 MG TAB NGT SCH (08:32)
[2017-02-16] MEDS: NICOTINE (21 MG/24 HR) PATCH TRANSDERM SCH (08:32)
[2017-02-16] MEDS: DOCUSATE SODIUM 10 MG/ML (10ML CUP) NGT SCH ×2 (08:32→21:24)
[2017-02-16] MEDS: BROMOCRIPTINE 2.5 MG TAB PO SCH ×2 (08:32→21:24)
[2017-02-16] MEDS: AMANTADINE 100 MG/10 ML POSYR GTB SCH (08:32)
[2017-02-16] MEDS: PROPRANOLOL 1 MG INJ IV SCH (08:33)
[2017-02-16] MEDS: NYSTATIN 30 GM POWDER BTL TOP SCH ×2 (08:34→21:25)
[2017-02-16 08:52] LABS: BASOPHILS % 1.1 % (0.0-2.0); EOSINOPHILS # 0.2 10^3/ul (0.0-0.5); EOSINOPHILS % 5.2 % (0.0-7.0); HEMATOCRIT 32.7 % (42.0-52.0); HEMOGLOBIN 10.2 g/dl (14.0-18.0); LYMPHOCYTES # 1.2 10^3/ul (0.8-2.9); LYMPHOCYTES % 34.1 % (15.0-51.0); MEAN CORPUSCULAR HEMOGLOBIN 27.8 pg (29.0-33.0); MEAN CORPUSCULAR HGB CONC 31.2 g/dl (32.0-37.0); MEAN CORPUSCULAR VOLUME 89.1 fl (82.0-101.0); MEAN PLATELET VOLUME 11.6 fl (7.4-10.4); MONOCYTE # 0.3 10^3/ul (0.3-0.9); MONOCYTES % 9.3 % (0.0-11.0); NEUTROPHIL # 1.8 10^3/ul (1.6-7.5); NEUTROPHILS % 49.8 % (39.0-77.0); PLATELET COUNT 258 10^3/UL (140-415); RED BLOOD COUNT 3.67 10^6/ul (4.70-6.10); RED CELL DISTRIBUTION WIDTH 15.2 % (11.5-14.5); WHITE BLOOD COUNT 3.6 10^3/ul (4.8-10.8)
[2017-02-16 09:20] LABS: CREATININE 0.69 mg/dl (0.61-1.24); POTASSIUM 3.7 mmol/L (3.5-5.1)
--- NOTE | 2017-02-16 09:43 | CONS ---
Date/Time of Note Date/Time of Note DATE: 02/16/17 TIME: 09:42 Consult Date/Type/Reason Admit Date/Time Dec 31, 2016 at 00:30 Initial Consult Date 12/31/16 Type of Consultation: Pulmonary Ordering Provider: JEAN MARIE BRAGG MD Subjective Remains comfortable, no new events. Moderate secretions. Objective Vital Signs Date Time Temp Pulse Resp B/P Pulse Ox O2 Delivery O2 Flow Rate FiO2 02/16/17 08:11 98.5 76 18 117/73 95 02/16/17 05:38 Aerosol 5.0 28 T Tube Intake and Output 02/15/17 02/15/17 02/16/17 14:59 22:59 06:59 Intake Total 2000 ml Output Total 700 ml Balance 1300 ml Exam GENERAL: Well-nourished well-developed gentleman on cool aerosol via tracheostomy VITAL SIGNS: per chart NECK: Supple. No JVD or lymphadenopathy. CARDIAC EXAM: S1, S2. No added sounds or murmurs. CHEST: Diminished air entry bilaterally with rales right base. ABDOMEN: Soft, nontender. No guarding or rebound. EXTREMITIES: No cyanosis, clubbing or edema. NEUROLOGIC: Generalized weakness. No focal deficits. Results/Medications Result Diagram: 02/16/17 0726 02/16/17 0726 Results 24 hrs Laboratory Tests Test 02/16/17 07:26 White Blood Count 3.6 #L Red Blood Count 3.67 L Hemoglobin 10.2 L Hematocrit 32.7 L Mean Corpuscular Volume 89.1 Mean Corpuscular Hemoglobin 27.8 L Mean Corpuscular Hemoglobin Concent 31.2 L Red Cell Distribution Width 15.2 H Platelet Count 258 # Mean Platelet Volume 11.6 H Neutrophils % 49.8 Lymphocytes % 34.1 Monocytes % 9.3 Eosinophils % 5.2 Basophils % 1.1 Nucleated Red Blood Cells % 0.0 Neutrophils # 1.8 Lymphocytes # 1.2 Monocytes # 0.3 Eosinophils # 0.2 Basophils # 0.0 Nucleated Red Blood Cells # 0.0 Sodium Level 143 Potassium Level 3.7 Chloride Level 105 Carbon Dioxide Level 28 Anion Gap 14 Blood Urea Nitrogen 9 Creatinine 0.69 Glucose Level 98 Calcium Level 9.0 Medications Current Medications Acetaminophen (Tylenol Tab) 650 mg Q4H PRN PO pain/fever Last administered on 02/14/17t 17:20; Admin Dose 650 MG; Start 10/12/17 at 01:00 Hydralazine HCl (Apresoline) 25 mg Q6H PRN PO sbp>160; Start 12/31/16 at 01:00 Enalaprilat (Vasotec Iv) 1.25 mg Q6H PRN IV sbp>160; Start 12/31/16 at 01:00 Ondansetron HCl (Zofran Inj) 4 mg Q4H PRN IV nausea; Start 12/31/16 at 01:00 Hydralazine HCl (Apresoline) 10 mg Q4H PRN IV ELEVATED SYSTOLIC BP Last administered on 02/01/17 22:10; Admin Dose 10 MG; Start 12/31/16 at 05:30 IV Flush (NS 10 ml) 10 ml PRN PRN IV IV PROTOCOL; Start 01/02/17 at 17:00 Lorazepam (Ativan) 2 mg Q2H PRN IV PRN Agitation. Last administered on 05:19; Admin Dose 2 MG; Start 01/04/17 at 09:00 Carbamazepine (Tegretol Susp (Ped)) 400 mg BID NGT Last administered on 22:44; Admin Dose 400 MG; Start 01/22/17 at 21:00 Lansoprazole (Prevacid) 30 mg BID@06,18 NGT Last administered on 02/16/17 05: 19; Admin Dose 30 MG; Start 01/24/17 at 18:00 Docusate Sodium (Colace Liquid Cup) 100 mg BID NGT Last administered on 08:32; Admin Dose 100 MG; Start 01/25/17 at 21:00 Quetiapine Fumarate 200 mg 200 mg Q6 NGT Last administered on 02/16/17 05:26 ; Admin Dose 200 MG; Start 01/27/17 at 12:00 Dextrose/Sodium Chloride (D5-1/2ns) 1,000 ml @ 75 mls/hr [id number] IV Last administered on 02/15/17 22:42; Admin Dose 75 MLS/HR; Start 01/27/17 at 09:30 Propranolol HCl (Inderal Iv) 2 mg BID IV Last administered on 02/16/17 08:33 ; Admin Dose 2 MG; Start 02/01/17 at 17:00 Dantrolene Sodium (Dantrium) 25 mg TID PO Last administered on 02/16/17 08:32 ; Admin Dose 25 MG; Start 02/01/17 at 18:00 Bromocriptine Mesylate (Parlodel) 2.5 mg TID PO Last administered on 08:32; Admin Dose 2.5 MG; Start 02/01/17 at 21:00 Amantadine HCl (Symmetrel) 200 mg BID GTB Last administered on 02/16/17 08:32 ; Admin Dose 200 MG; Start 02/01/17 at 18:00 Diphenhydramine HCl (Benadryl) 50 mg Q4H PRN IV sedation Last administered on 02/14/17 21:53; Admin Dose 50 MG; Start 02/05/17 at 07:00 Thiamine HCl (Vitamin B1) 100 mg DAILY NGT Last administered on 02/16/17 08: 32; Admin Dose 100 MG; Start 02/05/17 at 09:30 Nystatin (Nystatin Powder) 1 applic BID TOP Last administered on 02/16/17 08: 34; Admin Dose 1 APPLIC; Start 02/08/17 at 11:00 Levofloxacin (Levaquin) 750 mg DAILY@06 NGT Last administered on 02/16/17 05: 19; Admin Dose 750 MG; Start 02/09/17 at 10:30 Levetiracetam (Keppra Liquid) 500 mg BID GTB Last administered on 02/16/17 08 :31; Admin Dose 500 MG; Start 02/09/17 at 21:00 Nicotine (Nicoderm 21 Mg/ 24hr) 1 patch DAILY TRANSDERM Last administered on 08:32; Admin Dose 1 PATCH; Start 02/14/17 at 11:00 Assessment/Plan Chief Complaint/Hosp Course IMP: 1. Hypoxic respiratory failure/Vent Dependence/failure to wean. Now with tracheostomy on cool aerosol 2. Acute Lung Injury/ARDS, clinically resolved. 3. History of drug overdose 4. 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 Significant improvement with treatment of NMS 5. ALEX 6. Anemia, likely of chronic disease RECS: 1. Status post tracheostomy and PEG. 2. Continue cool aerosol during the day. Continue cool aerosol 24 hours per day. Moderate secretions noted will hold off on downsizing tracheostomy. 3. Tube feeds/Free H20 4. Minimize sedatives as tolerated 5. Continue antipsychotics continues treatment for NMS dc to subacute. Problems: BRIANNA SAAVEDRA MD, [facility] Feb 16, 2017 09:43
[2017-02-16] MEDS: carBAMAZepine SUSP 20 MG/ML POSYG NGT SCH ×2 (10:29→21:25)
--- NOTE | 2017-02-16 10:59 | PN ---
Date/Time of Note Date/Time of Note DATE: 02/16/17 TIME: 10:32 Assessment/Plan VTE Prophylaxis VTE Prophylaxis Intervention: SCD's Lines/Catheters IV Catheter Type (from Nrsg): PICC Line Central line still needed: Yes (for IV access ) Urinary Cath still in place: No Assessment/Plan Assessment/Plan 46 yo male with: 1. Seizure, no previous history, one episode 02/08, likely related to medication withdrawal including benzodiazepines and Depakote and other medication patient has been on for almost a month. No further seizures. Keppra 500 mg po twice daily. 2. Resolving severe encephalopathy 2ry to drug abuse likely Bath salts and/or synthetic marijuana and also bipolar disorder with violent behaviors and noncompliance with medications per previous psychiatry notes. Patient on treatment for Neuroleptic malignant syndrome, patient completed at least 10 days of full treatment, D/C amantadine and propranolol and will start tapering bromocriptine and dantrolene both of them to be dosed bid for 5 days then daily for 3 days and then QOD x 2 days Stable on telemetry with 1:1 sitter. On Seroquel and Tegretol for psych. Thiamine po. 3. S/p Acute respiratory Failure 2ry to severe Encephalopathy from Drug overuse , had to be intubated, sedated and paralysed. Status post tracheostomy, off mechanical ventilation and on aerosolized O2 via trach. Plan is to decannulate at subacute facility. Patient to finish treatment for as of today. Discussed with pulmonary, okay to transfer to subacute facility. 4. Bipolar disorder: Likely noncompliant with psychiatric medications. Medication resumed and adjusted to outpatient dosing based on the note from psychiatry 5 days prior to admission that were able to obtain last Wednesday, patient Seroquel can even be titrated higher, according to the notes he was on Seroquel XR, increased to 1000 mg nightly per the latest note. Continue Seroquel 200 mg QID and Carbamazepine to 400 mg twice daily. Referral to psychiatry from subacute facility at the time of discharge, patient may return to his previous psychiatry facility outpatient [facility]. Will need Psych Eval once trach capped and able to communicate. 5. Right foot Lisfranc fracture on admission : no pain currently, and ambulating well. 6. Anemia: Hemoglobin stable at approx 9.0, status post 1 unit pRBC on 01/15. Continue proton pump inhibitors. Tolerating tube feedings. 7. Polymicrobial tracheobronchitis including Staphylococcus aureus MSSA, Klebsiella pneumoniae, Enterobacter cloacae: Completed 14 days of Levaquin as of today 8. S/p MDR Klebsiella pneumoniae UTI: completed UTI course. Prophylaxis: SCDs for DVT prophylaxis, Protonix for GI prophylaxis Disposition: On telemetry, Off of ventilator. Patient will need to be placed in a subacute facility, he still has a tracheostomy and PEG tube which prevents him from going to a psych facility. Also need another 10 days to taper off his Bromocriptine and Dantrolene. Jayda, the patient's 1/2 sister has made us understand that she will not be involved in the primary caregiving of patient and he will need to be placed at the time of discharge no matter what his condition. Subjective 24 Hr Interval Summary Free Text/Dictation Patient awake, alert, sitting by the side of the bed, requesting to ambulate more. He is able to mouth words, still has a tracheostomy in place, on aerosolized O2. Tolerating tube feedings. Will discontinue antibiotics, discontinue IV fluids, discontinue amantadine and propranolol. Will start tapering bromocriptine and dantrolene over the next 10 days. Okay to transfer patient to subacute. Exam/Review of Systems Vital Signs Vitals Vital Signs Date Time Temp Pulse Resp B/P Pulse Ox O2 Delivery O2 Flow Rate FiO2 02/16/17 08:11 98.5 76 18 117/73 95 02/16/17 05:38 Aerosol 5.0 28 T Tube Intake and Output 02/15/17 02/15/17 02/16/17 15:00 23:00 07:00 Intake Total 2000 ml Output Total 700 ml Balance 1300 ml Exam Constitutional: alert, oriented, other (Tracheostomy and G-tube), well developed Respiratory: clear to auscultation, normal air movement, other (Tracheostomy in place) Cardiovascular: nl pulses, regular rate and rhythm Gastrointestinal: non-tender, other (G-tube in place), soft Musculoskeletal: nl extremities to inspection, nl gait and stance, other Extremities: normal pulses, other (No edema, clubbing or cyanosis) Neurological: PODIATRIST ASSISTANT II-XII intact, nl mental status, nl speech, other (Getting stronger) Results Result Diagram: 02/16/1772502/16/17725 Results 24 hrs Laboratory Tests Test 02/16/17 07:26 White Blood Count 3.6 #L Red Blood Count 3.67 L Hemoglobin 10.2 L Hematocrit 32.7 L Mean Corpuscular Volume 89.1 Mean Corpuscular Hemoglobin 27.8 L Mean Corpuscular Hemoglobin Concent 31.2 L Red Cell Distribution Width 15.2 H Platelet Count 258 # Mean Platelet Volume 11.6 H Neutrophils % 49.8 Lymphocytes % 34.1 Monocytes % 9.3 Eosinophils % 5.2 Basophils % 1.1 Nucleated Red Blood Cells % 0.0 Neutrophils # 1.8 Lymphocytes # 1.2 Monocytes # 0.3 Eosinophils # 0.2 Basophils # 0.0 Nucleated Red Blood Cells # 0.0 Sodium Level 143 Potassium Level 3.7 Chloride Level 105 Carbon Dioxide Level 28 Anion Gap 14 Blood Urea Nitrogen 9 Creatinine 0.69 Glucose Level 98 Calcium Level 9.0 Medications Medications Current Medications Acetaminophen (Tylenol Tab) 650 mg Q4H PRN PO pain/fever Last administered on 02/14/17 17:20; Admin Dose 650 MG; Start 12/31/16 at 01:00 Hydralazine HCl (Apresoline) 25 mg Q6H PRN PO sbp>160; Start 12/31/16 at 01:00 Enalaprilat (Vasotec Iv) 1.25 mg Q6H PRN IV sbp>160; Start 12/31/16 at 01:00 Ondansetron HCl (Zofran Inj) 4 mg Q4H PRN IV nausea; Start 12/31/16 at 01:00 Hydralazine HCl (Apresoline) 10 mg Q4H PRN IV ELEVATED SYSTOLIC BP Last administered on 02/01/17 22:10; Admin Dose 10 MG; Start 12/31/16 at 05:30 IV Flush (NS 10 ml) 10 ml PRN PRN IV IV PROTOCOL; Start 01/02/17 at 17:00 Lorazepam (Ativan) 2 mg Q2H PRN IV PRN Agitation. Last administered on 05:19; Admin Dose 2 MG; Start 01/04/17 at 09:00 Carbamazepine (Tegretol Susp (Ped)) 400 mg BID NGT Last administered on 10:29; Admin Dose 400 MG; Start 01/22/17 at 21:00 Lansoprazole (Prevacid) 30 mg BID@06,18 NGT Last administered on 02/16/17 05: 19; Admin Dose 30 MG; Start 01/24/17 at 18:00 Docusate Sodium (Colace Liquid Cup) 100 mg BID NGT Last administered on 08:32; Admin Dose 100 MG; Start 01/25/17 at 21:00 Quetiapine Fumarate 200 mg 200 mg Q6 NGT Last administered on 02/16/17 05:26 ; Admin Dose 200 MG; Start 01/27/17 at 12:00 Dextrose/Sodium Chloride (D5-1/2ns) 1,000 ml @ 75 mls/hr [id number] IV Last administered on 02/15/17 22:42; Admin Dose 75 MLS/HR; Start 01/27/17 at 09:30 Diphenhydramine HCl (Benadryl) 50 mg Q4H PRN IV sedation Last administered on 02/14/17 21:53; Admin Dose 50 MG; Start 02/05/17 at 07:00 Thiamine HCl (Vitamin B1) 100 mg DAILY NGT Last administered on 02/16/17 08: 32; Admin Dose 100 MG; Start 02/05/17 at 09:30 Nystatin (Nystatin Powder) 1 applic BID TOP Last administered on 02/16/17 08: 34; Admin Dose 1 APPLIC; Start 02/08/17 at 11:00 Levofloxacin (Levaquin) 750 mg DAILY@06 NGT Last administered on 02/16/17 05: 19; Admin Dose 750 MG; Start 02/09/17 at 10:30 Levetiracetam (Keppra Liquid) 500 mg BID GTB Last administered on 02/16/17 08 :31; Admin Dose 500 MG; Start 02/09/17 at 21:00 Nicotine (Nicoderm 21 Mg/ 24hr) 1 patch DAILY TRANSDERM Last administered on 08:32; Admin Dose 1 PATCH; Start 02/14/17 at 11:00 Bromocriptine Mesylate (Parlodel) 2.5 mg BID PO ; Start 02/16/17 at 21:00; Status UNV Dantrolene Sodium (Dantrium) 25 mg BID PO ; Start 02/16/17 at 21:00; Status YUDIV TRENT NEWMAN Feb 16, 2017 10:59 :31; Admin Dose 500 MG; Start 02/09/17 at 21:00 Nicotine (Nicoderm 21 Mg/ 24hr) 1 patch DAILY TRANSDERM Last administered on t 08:32; Admin Dose 1 PATCH; Start 02/14/17 at 11:00 Bromocriptine Mesylate (Parlodel) 2.5 mg BID PO ; Start 02/16/17 at 21:00; Status UNV Dantrolene Sodium (Dantrium) 25 mg BID PO ; Start 02/16/17 at 21:00; Status TRENT DODGE Feb 16, 2017 10:59
--- NOTE | 2017-02-16 16:10 | PDOCDIS ---
Discharge Instructions CONDITION Patient Condition: Stable HOME CARE INSTRUCTIONS: Special Diet: FIBER SOURCE ACTIVITY: Activity Restrictions: Slowly Increase Activity FOLLOW UP/APPOINTMENTS Follow-up Plan Referral to outpatient psychiatry for known bipolar disorder, patient currently on antipsychotics. Follow-up with pulmonary at the facility for decannulation soon hopefully. Remove G-tube once patient decannulated and able to tolerate p.o. Speech therapy and physical therapy to continue TRENT NEWMAN Feb 16, 2017 16:10
--- NOTE | 2017-02-16 19:32 | PN ---
Date/Time of Note Date/Time of Note DATE: 02/16/17 TIME: 19:32 Assessment/Plan Lines/Catheters IV Catheter Type (from Nrsg): PICC Line Lewis in Place (from Nrsg): No Assessment/Plan Chief Complaint/Hosp Course IMPRESSION: Respiratory failure. SP SP tracheostomy continue vent support Discussed with the nursing staff. Problems: Subjective 24 Hr Interval Summary Constitutional: improved Pain Control: mild Exam/Review of Systems Vital Signs Vitals Vital Signs Date Time Temp Pulse Resp B/P Pulse Ox O2 Delivery O2 Flow Rate FiO2 02/16/17 17:16 5.0 28 02/16/17 16:03 98.8 78 19 102/68 99 02/16/17 05:38 Aerosol T Tube Intake and Output 02/15/17 02/15/17 02/16/17 15:00 23:00 07:00 Intake Total 2000 ml Output Total 700 ml Balance 1300 ml Exam ENMT: mucosa pink and moist, nl external ears & nose, nl lips & teeth, nl nasal mucosa & septum Neck: non-tender, supple Respiratory: clear to auscultation, normal air movement Cardiovascular: nl pulses, regular rate and rhythm Results Result Diagram: 02/16/17 0726 02/16/17 0726 JOSE GUAJARDO MD Feb 16, 2017 19:32
[2017-02-16] MEDS: ALBUTEROL 0.083% (NEB) 2.5 MG/3 ML AMP HHN PRN (23:55)
[2017-02-16] MEDS: IPRATROPIUM (NEB) 0.5 MG/2.5 ML AMP HHN PRN (23:55)
[2017-02-17] VITALS (7 sets, daily range): BP systolic 111–121; BP diastolic 65–79; PULSE 75–89; RESP 18–20
[2017-02-17] MEDS: LORAZEPAM 2 MG INJ IV PRN ×2 (05:42→09:14)
[2017-02-17] MEDS: QUETIAPINE 100 MG TAB NGT SCH (05:42)
[2017-02-17] MEDS: LANSOPRAZOLE 30 MG CAP NGT SCH (05:42)
[2017-02-17] MEDS: DOCUSATE SODIUM 10 MG/ML (10ML CUP) NGT SCH (09:07)
[2017-02-17] MEDS: THIAMINE 100 MG TAB NGT SCH (09:07)
[2017-02-17] MEDS: DANTROLENE 25 MG CAP PO SCH (09:07)
[2017-02-17] MEDS: LEVETIRACETAM (100 MG/ML) 5ML CUP GTB SCH (09:07)
[2017-02-17] MEDS: BROMOCRIPTINE 2.5 MG TAB PO SCH (09:08)
[2017-02-17] MEDS: NYSTATIN 30 GM POWDER BTL TOP SCH (09:08)
[2017-02-17] MEDS: NICOTINE (21 MG/24 HR) PATCH TRANSDERM SCH (09:08)
--- NOTE | 2017-02-17 10:43 | PN ---
Date/Time of Note Date/Time of Note DATE: 02/17/17 TIME: 10:37 Assessment/Plan VTE Prophylaxis VTE Prophylaxis Intervention: SCD's Lines/Catheters IV Catheter Type (from Nrs): PICC Line Central line still needed: Yes (Will discontinue today prior to discharge) Urinary Cath still in place: No Assessment/Plan Assessment/Plan 46 yo male with: 1. Seizure, no previous history, one episode 02/08, likely related to medication withdrawal including benzodiazepines and Depakote and other medication patient has been on for almost a month. No further seizures. Keppra 500 mg po twice daily. 2. Resolving severe encephalopathy 2ry to drug abuse likely Bath salts and/or synthetic marijuana and also bipolar disorder with violent behaviors and noncompliance with medications per previous psychiatry notes. Patient on treatment for Neuroleptic malignant syndrome, patient completed at least 10 days of full treatment, D/C amantadine and propranolol and will start tapering bromocriptine and dantrolene both of them to be dosed bid for 4 days then daily for 3 days and then QOD x 2 days Stable on telemetry with 1:1 sitter. On Seroquel and Tegretol for psych. Thiamine po. 3. S/p Acute respiratory Failure 2ry to severe Encephalopathy from Drug overuse , had to be intubated, sedated and paralysed. Status post tracheostomy, off mechanical ventilation and on aerosolized O2 via trach. Plan is to decannulate at subacute facility. Discussed with pulmonary, okay to transfer to subacute facility. 4. Bipolar disorder: Likely noncompliant with psychiatric medications. Medication resumed and adjusted to outpatient dosing based on the note from psychiatry 5 days prior to admission that were able to obtain last Wednesday, patient Seroquel can even be titrated higher, according to the notes he was on Seroquel XR, increased to 1000 mg nightly per the latest note. Continue Seroquel 200 mg QID and Carbamazepine to 400 mg twice daily. Referral to psychiatry from subacute facility at the time of discharge, patient may return to his previous psychiatry facility outpatient [facility]. Will need Psych Eval once trach capped or decannulated. 5. Right foot Lisfranc fracture on admission : no pain currently, and starting to ambulate with PT 6. Anemia: Hemoglobin stable at approx 9.0, status post 1 unit pRBC on 01/15. No further issues. Continue proton pump inhibitors. Tolerating tube feedings. 7. Polymicrobial tracheobronchitis including Staphylococcus aureus MSSA, Klebsiella pneumoniae, Enterobacter cloacae: Completed 14 days of Levaquin as of 02/16 8. S/p MDR Klebsiella pneumoniae UTI: completed UTI course. Prophylaxis: SCDs for DVT prophylaxis, Protonix for GI prophylaxis Disposition: On telemetry, Off of ventilator. Discharge to subacute facility this morning with a 1:1 sitter for now He still has a tracheostomy and PEG tube which prevents him from going to a psych facility. Also need another 9 days to taper off his Bromocriptine and Dantrolene. Jayda, the patient's 1/2 sister has made us understand that she will not be involved in the primary caregiving of patient and he will need to be placed at the time of discharge no matter what his condition. Subjective 24 Hr Interval Summary Free Text/Dictation Patient currently very cooperative, he understands he does need further care however still insisting to go home on and off. He has not had any behavioral issues so far. He does have a sitter as a precaution. He has been very cooperative and asking for physical therapy. He is very motivated to be decannulated and have his G-tube removed. Transfer to subacute today. Exam/Review of Systems Vital Signs Vitals Vital Signs Date Time Temp Pulse Resp B/P Pulse Ox O2 Delivery O2 Flow Rate FiO2 02/17/17 08:39 77 02/17/17 08:15 20 98 Aerosol 5.0 28 T Tube 02/17/17 07:00 98.0 121/79 Intake and Output 02/16/17 02/16/17 02/17/17 15:00 23:00 07:00 Intake Total 1000 ml 1000 ml 1000 ml Output Total 700 ml 750 ml 1000 ml Balance 300 ml 250 ml 0 ml Exam Constitutional: alert, oriented (x3), well developed Respiratory: clear to auscultation, other (With tracheostomy in place) Cardiovascular: nl pulses, regular rate and rhythm Gastrointestinal: non-tender, other (G-tube in place), soft Musculoskeletal: nl extremities to inspection, nl gait and stance Extremities: normal pulses Neurological: PRICER BAGGER II-XII intact, nl mental status, nl speech, other (Much improved strength) Results Result Diagram: 11/28/17 0726 11/28/17 0726 Medications Medications Current Medications Acetaminophen (Tylenol Tab) 650 mg Q4H PRN PO pain/fever Last administered on 02/14/17 17:20; Admin Dose 650 MG; Start 12/31/16 at 01:00 Hydralazine HCl (Apresoline) 25 mg Q6H PRN PO sbp>160; Start 12/31/16 at 01:00 Ondansetron HCl (Zofran Inj) 4 mg Q4H PRN IV nausea; Start 12/31/16 at 01:00 IV Flush (NS 10 ml) 10 ml PRN PRN IV IV PROTOCOL; Start 01/02/17 at 17:00 Lorazepam (Ativan) 2 mg Q2H PRN IV PRN Agitation. Last administered on 09:14; Admin Dose 2 MG; Start 01/04/17 at 09:00 Carbamazepine (Tegretol Susp (Ped)) 400 mg BID NGT Last administered on 21:25; Admin Dose 400 MG; Start 01/22/17 at 21:00 Lansoprazole (Prevacid) 30 mg BID@06,18 NGT Last administered on 02/17/17 05: 42; Admin Dose 30 MG; Start 01/24/17 at 18:00 Docusate Sodium (Colace Liquid Cup) 100 mg BID NGT Last administered on 09:07; Admin Dose 100 MG; Start 01/25/17 at 21:00 Quetiapine Fumarate (Seroquel) 200 mg Q6 NGT Last administered on 02/17/17 05 :42; Admin Dose 200 MG; Start 01/27/17 at 12:00 Thiamine HCl (Vitamin B1) 100 mg DAILY NGT Last administered on 02/17/17 09: 07; Admin Dose 100 MG; Start 02/05/17 at 09:30 Nystatin (Nystatin Powder) 1 applic BID TOP Last administered on 02/17/17 09: 08; Admin Dose 1 APPLIC; Start 02/08/17 at 11:00 Levetiracetam (Keppra Liquid) 500 mg BID GTB Last administered on 02/17/17 09 :07; Admin Dose 500 MG; Start 02/09/17 at 21:00 Nicotine (Nicoderm 21 Mg/ 24hr) 1 patch DAILY TRANSDERM Last administered on 09:08; Admin Dose 1 PATCH; Start 02/14/17 at 11:00 Bromocriptine Mesylate (Parlodel) 2.5 mg BID PO Last administered on 09:08; Admin Dose 2.5 MG; Start 02/16/17 at 21:00 Dantrolene Sodium (Dantrium) 25 mg BID PO Last administered on 02/17/17 09:07 ; Admin Dose 25 MG; Start 02/16/17 at 21:00 Hydralazine HCl (Apresoline) 25 mg Q6H PRN GTB ELEVATED BLOOD PRESSURE; Start 02/16/17 at 11:00 TRENT ENWMAN Feb 17, 2017 10:43
[2017-02-17] MEDS: carBAMAZepine SUSP 20 MG/ML POSYG NGT SCH (11:18)
--- NOTE | 2017-02-17 12:27 | CONS ---
Date/Time of Note Date/Time of Note DATE: 02/17/17 TIME: 12: Consult Date/Type/Reason Admit Date/Time Dec 31, 2016 at 00:30 Initial Consult Date 12/31/16 Type of Consultation: Pulmonary Ordering Provider: JEAN MARIE BRAGG MD Subjective Patient comfortable this morning. No events. Stable off ventilator. Objective Vital Signs Date Time Temp Pulse Resp B/P Pulse Ox O2 Delivery O2 Flow Rate FiO2 02/17/17 12:24 89 02/17/17 08:15 20 98 Aerosol 5.0 28 T Tube 02/17/17 07:00 98.0 121/79 Intake and Output 02/16/17 02/16/17 02/17/17 15:00 23:00 07:00 Intake Total 1000 ml 1000 ml 1000 ml Output Total 700 ml 750 ml 1000 ml Balance 300 ml 250 ml 0 ml Exam GENERAL: Well-nourished well-developed gentleman on cool aerosol via tracheostomy VITAL SIGNS: per chart NECK: Supple. No JVD or lymphadenopathy. CARDIAC EXAM: S1, S2. No added sounds or murmurs. CHEST: Diminished air entry bilaterally with rales right base. ABDOMEN: Soft, nontender. No guarding or rebound. EXTREMITIES: No cyanosis, clubbing or edema. NEUROLOGIC: Generalized weakness. No focal deficits. Results/Medications Result Diagram: 02/16/1772502/16/17725 Medications Current Medications Acetaminophen (Tylenol Tab) 650 mg Q4H PRN PO pain/fever Last administered on 02/14/17 17:20; Admin Dose 650 MG; Start 12/31/16 at 01:00 Hydralazine HCl (Apresoline) 25 mg Q6H PRN PO sbp>160; Start 12/31/16 at 01:00 Ondansetron HCl (Zofran Inj) 4 mg Q4H PRN IV nausea; Start 12/31/16 at 01:00 IV Flush (NS 10 ml) 10 ml PRN PRN IV IV PROTOCOL; Start 01/02/17 at 17:00 Lorazepam (Ativan) 2 mg Q2H PRN IV PRN Agitation. Last administered on t 09:14; Admin Dose 2 MG; Start 01/04/17 at 09:00 Carbamazepine (Tegretol Susp (Ped)) 400 mg BID NGT Last administered on 21:25; Admin Dose 400 MG; Start 01/22/17 at 21:00 Lansoprazole (Prevacid) 30 mg BID@06,18 NGT Last administered on 02/17/17 05: 42; Admin Dose 30 MG; Start 01/24/17 at 18:00 Docusate Sodium (Colace Liquid Cup) 100 mg BID NGT Last administered on 09:07; Admin Dose 100 MG; Start 01/25/17 at 21:00 Quetiapine Fumarate (Seroquel) 200 mg Q6 NGT Last administered on 02/17/17 05 :42; Admin Dose 200 MG; Start 01/27/17 at 12:00 Thiamine HCl (Vitamin B1) 100 mg DAILY NGT Last administered on 02/17/17 09: 07; Admin Dose 100 MG; Start 02/05/17 at 09:30 Nystatin (Nystatin Powder) 1 applic BID TOP Last administered on 02/17/17 09: 08; Admin Dose 1 APPLIC; Start 02/08/17 at 11:00 Levetiracetam (Keppra Liquid) 500 mg BID GTB Last administered on 02/17/17 09 :07; Admin Dose 500 MG; Start 02/09/17 at 21:00 Nicotine (Nicoderm 21 Mg/ 24hr) 1 patch DAILY TRANSDERM Last administered on 09:08; Admin Dose 1 PATCH; Start 02/14/17 at 11:00 Bromocriptine Mesylate (Parlodel) 2.5 mg BID PO Last administered on 09:08; Admin Dose 2.5 MG; Start 02/16/17 at 21:00 Dantrolene Sodium (Dantrium) 25 mg BID PO Last administered on 02/17/17 09:07 ; Admin Dose 25 MG; Start 02/16/17 at 21:00 Hydralazine HCl (Apresoline) 25 mg Q6H PRN GTB ELEVATED BLOOD PRESSURE; Start 02/16/17 at 11:00 Assessment/Plan Chief Complaint/Hosp Course IMP: 1. Hypoxic respiratory failure/Vent Dependence/failure to wean. Now with tracheostomy on cool aerosol 2. Acute Lung Injury/ARDS, clinically resolved. 3. History of drug overdose 4. 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 Significant improvement with treatment of NMS 5. ALEX 6. Anemia, likely of chronic disease RECS: 1. Status post tracheostomy and PEG. 2. Continue cool aerosol during the day. Continue cool aerosol 24 hours per day. Moderate secretions noted will hold off on downsizing tracheostomy. 3. Tube feeds/Free H20 4. Speech therapy evaluation at detention facility. Agree with DC planning Problems: BRIANNA SAAVEDRA MD, [facility] Feb 17, 2017 12:27
== END 2017-02-17 11:30 | DRG 4 ==
LOC: E/R 18:58 → ICU 12-31 00:30 → TEL 02-09 13:31
PROVIDERS: ADMIT Legal Medicine; ATTEND Legal Medicine
PROC: 5A1955Z Respiratory Ventilation, Greater than 96 Consecutive Hours (ICD-10-PCS; 2016-12-31)
PROC: 0BH17EZ Insertion of Endotracheal Airway into Trachea, Via Natural or Artificial Opening (ICD-10-PCS; 2016-12-31)
PROC: 4A133R1 Monitoring of Arterial Saturation, Peripheral, Percutaneous Approach (ICD-10-PCS; 2016-12-31)
PROC: 02HV33Z Insertion of Infusion Device into Superior Vena Cava, Percutaneous Approach (ICD-10-PCS; 2017-01-02)
PROC: B548ZZA Ultrasonography of Superior Vena Cava, Guidance (ICD-10-PCS; 2017-01-02)
PROC: 4A00X4Z Measurement of Central Nervous Electrical Activity, External Approach (ICD-10-PCS; 2017-01-05)
PROC: 0BH17EZ Insertion of Endotracheal Airway into Trachea, Via Natural or Artificial Opening (ICD-10-PCS; 2017-01-13)
PROC: 5A1955Z Respiratory Ventilation, Greater than 96 Consecutive Hours (ICD-10-PCS; 2017-01-13)
PROC: 30243N1 Transfusion of Nonautologous Red Blood Cells into Central Vein, Percutaneous Approach (ICD-10-PCS; 2017-01-15)
PROC: 0DH63UZ Insertion of Feeding Device into Stomach, Percutaneous Approach (ICD-10-PCS; 2017-01-27)
PROC: 0DJ08ZZ Inspection of Upper Intestinal Tract, Via Natural or Artificial Opening Endoscopic (ICD-10-PCS; 2017-01-27)
PROC: 5A1955Z Respiratory Ventilation, Greater than 96 Consecutive Hours (ICD-10-PCS; 2017-01-28)
PROC: 0B110F4 Bypass Trachea to Cutaneous with Tracheostomy Device, Open Approach (ICD-10-PCS; principal; 2017-01-28 17:00)
DX: T40.7X1A Poisoning by cannabis (derivatives), accidental (unintentional), initial encounter (principal); J69.0 Pneumonitis due to inhalation of food and vomit; G92 Toxic encephalopathy; J15.6 Pneumonia due to other Gram-negative bacteria; J15.0 Pneumonia due to Klebsiella pneumoniae; J15.211 Pneumonia due to Methicillin susceptible Staphylococcus aureus; R13.10 Dysphagia, unspecified; D69.6 Thrombocytopenia, unspecified; G21.0 Malignant neuroleptic syndrome; J96.02 Acute respiratory failure with hypercapnia; J96.01 Acute respiratory failure with hypoxia; E87.0 Hyperosmolality and hypernatremia; F12.121 Cannabis abuse with intoxication delirium; N39.0 Urinary tract infection, site not specified; E66.01 Morbid (severe) obesity due to excess calories; R56.9 Unspecified convulsions; T43.691A Poisoning by other psychostimulants, accidental (unintentional), initial encounter; F15.10 Other stimulant abuse, uncomplicated; S92.811A Other fracture of right foot, initial encounter for closed fracture; S92.812A Other fracture of left foot, initial encounter for closed fracture; E78.5 Hyperlipidemia, unspecified; J44.9 Chronic obstructive pulmonary disease, unspecified; F31.9 Bipolar disorder, unspecified; R63.3 Feeding difficulties; Z91.14 Patient's other noncompliance with medication regimen; E87.6 Hypokalemia; B96.1 Klebsiella pneumoniae [K. pneumoniae] as the cause of diseases classified elsewhere; D63.8 Anemia in other chronic diseases classified elsewhere; J20.9 Acute bronchitis, unspecified; B95.61 Methicillin susceptible Staphylococcus aureus infection as the cause of diseases classified elsewhere; G83.9 Paralytic syndrome, unspecified; Z68.36 Body mass index [BMI] 36.0-36.9, adult; G47.33 Obstructive sleep apnea (adult) (pediatric); X58.XXXA Exposure to other specified factors, initial encounter; T40.7X5A Adverse effect of cannabis (derivatives), initial encounter; Y92.009 Unspecified place in unspecified non-institutional (private) residence as the place of occurrence of the external cause
CPT/HCPCS: 31500; 36415; 36430; 36569; 36600; 70450; 70470; 70551; 71010; 73630; 73700; 74000; 76937; 80048; 80053; 80061; 80150; 80156; 80164; 80178; 80202; 80306; 80307; 81001; 81003; 82140; 82150; 82533; 82550; 82553; 82803; 82962; 83605; 83690; 83735; 84100; 84132; 84443; 84484; 85014; 85018; 85025; 85610; 85730; 86592; 86850; 86900; 86901; 86920; 87040; 87070; 87081; 87086; 93005; 94002; 94003; 94640; 94664; 94770; 95819; 96372; 96374; 96375; 96376; 97162; J1800; J1940; C9113; G9033; J0278; J0360; J0690; J0692; J1200; J1630; J1650; J1953; J1956; J2060; J2250; J2270; J2543; J2765; J2997; J3010; J3370; J3411; J3475; J3480; J3490; J7030; J7040; J7042; J7050; P9016; Q9967

== ENCOUNTER 2017-02-28 16:30 | Emergency (ER) | payer OTHER ==
[~2017-02-28] VITALS: Ht 177.8 cm; Wt 96.0 kg
[2017-02-28 16:31] VITALS: Ht 177.8 cm; Wt 96.0 kg
--- NOTE | 2017-02-28 17:21 | ERD ---
ER Documentation Chief Complaint Chief Complaint ALETHEA RA FROM HOME FOR ANXIETY HPI 46-year-old man states he feels extremely agitated and stressed out, he was home alone today, his is at work. He denies suicidal homicidal ideation, no fevers or chills, no cough, no shortness of breath, no chest pain, no headache or blurry vision. Patient does have a history of psychiatric illness and drug abuse with recent drug overdose and resulting intubation, transient encephalopathy, and resulting tracheostomy. ROS All systems reviewed and are negative except as per history of present illness. Allergies Allergies: Coded Allergies: No Known Allergy (Unverified , 12/30/16) PMhx/Soc Psychiatric illness, drug abuse, right foot fracture, tracheostomy History of Surgery: Yes (HEMORRHOIDECTOMY) Hx Cardiac Disorders: No Hx Psychiatric Problems: Yes Hx Miscellaneous Medical Probl: Yes (see PT note) Hx Alcohol Use: Yes Hx Substance Use: Yes Hx Tobacco Use: No FmHx Family History: No diabetes Physical Exam Vitals Vital Signs Date Time Temp Pulse Resp B/P Pulse Ox O2 Delivery O2 Flow Rate FiO2 02/28/17 18:42 72 16 140/75 99 Room Air 02/28/17 16:31 98.1 96 18 136/89 99 Physical Exam GENERAL: Well-developed, well-nourished, well-hydrated, agitated, crying, afebrile HEENT: Moist mucous membranes, pink conjunctiva, no cervical spine tenderness or step-off deformities, no goiter, no jaundice or icterus, extraocular movements intact without pain. No submandibular induration, and no pharyngeal erythema NEURO: Alert and oriented 3, cranial nerves II through XII intact bilaterally, pupils equal round reactive to light, no focal deficits or facial asymmetry, sensation intact distally Strength 5/5 in upper and lower extremities bilaterally CARDIAC: Regular rate and rhythm, no murmurs rubs or gallops LUNGS: Clear bilaterally no wheezing crackles or stridor ABDOMEN: Soft nontender, no guarding, no rigidity, no rebound, no psoas sign no obturator sign. Normoactive bowel sounds SKIN: Warm and dry to touch, no abrasions, contusions, or hematomas, no lacerations, no ecchymosis, no target lesions, and without ulcers EXTREMITIES: No clubbing cyanosis or edema, calves are bilaterally symmetrical, no Homans sign, no popliteal cord sign. Distal pulses equal and bilateral PSYCH: Agitated, tearful, anxious Results 24 hrs Current Medications Medications (Trade) Dose Ordered Sig/Karl Route PRN Reason Start Time Stop Time Status Last Admin Dose Admin Lorazepam (Ativan) 2 mg ONCE ONCE IM 02/28/17 17:30 12 17:31 DC 02/28/17 17:17 Procedures/MDM I administered lorazepam 2 mg IM 1. Chest X-ray 1V Interpreted by me: Soft Tissue: No acute abnormalities Bones: No acute abnormalities Mediastinum/Cardiac Silhouette/Lungs: Tracheostomy tube in place Differential diagnoses considered, included but not limited to acute coronary syndrome, pulmonary embolism, aortic dissection, abdominal aortic aneurysm, sepsis, stroke, meningitis, encephalitis, pneumonia, appendicitis, cholecystitis , bowel obstruction, pyelonephritis, nephrolithiasis, cystitis, as well as metabolic, hematologic, and electrolyte abnormalities. As well as abscess, cellulitis, fractures, and dislocations. Patient feels much better at this time, and vital signs are normal, symptoms have improved. I did give strict instructions to return to the ED if symptoms continue or worsen, patient will otherwise follow-up with primary care physician. Patient understood instructions and agreed to plan. Disclaimer: Inadvertent spelling and grammatical errors are likely due to EHR/ dictation software use and do not reflect on the overall quality of patient care. Also, please note that the electronic time recorded on this note does not necessarily reflect the actual time of the patient encounter. Departure Diagnosis: Primary Impression: Anxiety attack Additional Impression: Tracheostomy tube present Condition: SHANNON Lilly MD Feb 28, 2017 17:21
[2017-02-28] MEDS ORDERED: LORAZEPAM 2 MG INJ IM ONE (17:30)
--- NOTE | 2017-02-28 17:34 | RADRPT ---
PROCEDURE: XR Chest. CLINICAL INDICATION: Dyspnea . Rule out infiltrate TECHNIQUE: Single frontal chest x-ray. COMPARISON: CR CHEST 01/30/2016; CR CHEST 10/20/2014; CR CHEST 10/20/2014; CR CHEST 07/22/2013 FINDINGS: The lungs are clear of acute infiltrates, edema, effusions, or masses. There is mild left basilar at electasis. The cardiomediastinal silhouette is unremarkable. The osseous structures are intact. Th ere has been interval placement of a tracheostomy tube. IMPRESSION: No acute cardiopulmonary disease. Placement of tracheostomy tube. Mild left basilar atelectasis. RPTAT: QQ .Izaiah Cheng MD, MD Date Time Electronically viewed and signed by .Izaiah Cheng MD, on 02/28/2017 17:33 .L/
[2017-02-28 18:42] VITALS: BP 140/75; PULSE 72; RESP 16
== END 2017-02-28 18:45 | disposition home or self-care (01) ==
LOC: E/R 16:30
DX: F41.9 Anxiety disorder, unspecified (principal); R06.00 Dyspnea, unspecified; Z93.0 Tracheostomy status
CPT/HCPCS: 71010; 96372; J2060; Z7502

== ENCOUNTER 2017-10-24 19:22 | Emergency (ER) | END 2017-10-24 20:59 | disposition home or self-care (01) ==

== ENCOUNTER 2018-03-23 04:11 | Emergency (ER) | payer OTHER ==
[~2018-03-23] VITALS: Ht 172.7 cm; Wt 117.8 kg
[~2018-03-23 04:11] MED LIST changes: -ALPR1TAB7 PO; -CARB100T2 PO; -CARB400T4 PO; -DIVA500T15 PO; +HYDR25CA PO; -OXCA150T3 PO; -QUET300T18 PO; -TRAZ150T65 PO
[2018-03-23 04:13] VITALS: BP 139/81; PULSE 78; RESP 17; Ht 172.7 cm; Wt 117.8 kg
[2018-03-23] MEDS ORDERED: KETOROLAC 60 MG INJ IM STA (04:28)
[2018-03-23] MEDS ORDERED: HYDR-4011 PO (04:29)
[2018-03-23] MEDS ORDERED: IBUP-1542 PO (04:29)
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
== END 2018-03-23 05:07 | disposition home or self-care (01) ==
LOC: FTE 04:11
DX: M25.511 Pain in right shoulder (principal)
CPT/HCPCS: 96372; J1885; Z7502

== ENCOUNTER 2018-09-05 13:40 | Emergency (ER) | payer OTHER ==
[~2018-09-05] VITALS: Ht 172.7 cm; Wt 113.6 kg
[~2018-09-05 13:40] MED LIST changes: +HYDR-4011 PO; +IBUP-1542 PO
[2018-09-05 13:51] VITALS: BP 116/56; PULSE 89; RESP 16; Ht 172.7 cm; Wt 113.6 kg
[2018-09-05] MEDS ORDERED: KETOROLAC 60 MG INJ IM STA (14:37)
[2018-09-05] MEDS ORDERED: DIAZEPAM 5 MG TAB PO ONE (15:00)
[2018-09-05] MEDS ORDERED: DEXAMETHASONE 10 MG/ML 1 ML INJ IM ONE (15:00)
[2018-09-05] MEDS ORDERED: NAPR-985 PO (15:35)
[2018-09-05] MEDS ORDERED: OXYC-279 PO (15:35)
[2018-09-05] MEDS ORDERED: MED4DP PO (15:35)
--- NOTE | 2018-09-13 15:49 | ERD ---
ER Documentation Chief Complaint Chief Complaint LEFT HIP PAIN AND LIMITED ROM X3 WEEKS HPI 47-year-old male presenting with left hip pain. Patient states that hurts to walk and he has had pain. He denies any use of medications and denies any numbness or tingling. He has not taken medications for symptoms. He denies any fevers. He denies any swelling. He denies any other medical problems. NKDA. Surgical history denies. Social history denies ROS All systems reviewed and are negative except as per history of present illness. Medications Home Meds Active Scripts Oxycodone HCl/Acetaminophen (Percocet 5-325 mg Tablet) 1 Each Tablet, 1 EACH PO DAILY, #7 TAB Prov:CONRAD PENA PA-C 09/05/18 Methylprednisolone* (Medrol* DOSE PACK) 4 Mg/Dose-Pack Tab.ds.pk, 4 MG PO . DIRECTED, #1 PACKET Prov:CONRAD PENA PA-C 09/05/18 Naproxen* (Naprosyn*) 500 Mg Tablet, 500 MG PO BID PRN for PAIN AND/OR INFLAMMATION, #30 TAB Prov:CONRAD PENA PA-C 09/05/18 Hydrocodone/Acetaminophen ([place] 5-325 Tablet) 1 Each Tablet, 1 TAB PO Q6H PRN for SEVERE PAIN LEVEL 7-10, #7 TAB Prov:KATRINA STONER MEDICAL TRANSCRIBER 03/23/18 Ibuprofen* (Motrin*) 600 Mg Tab, 600 MG PO Q6H PRN for PAIN AND OR ELEVATED TEMP, #30 TAB Prov:KATRINA STONER MEDICAL TRANSCRIBER 03/23/18 Hydroxyzine Pamoate* (Vistaril*) 25 Mg Capsule, 25 MG PO Q8 PRN for ANXIETY, #10 CAP Prov:MEAGAN JURADO DO 10/24/17 Allergies Allergies: Coded Allergies: No Known Allergy (Unverified , 12/30/16) PMhx/Soc History of Surgery: Yes (HEMORRHOIDECTOMY) Hx Neurological Disorder: Yes (Meningitis-coma) Hx Cardiac Disorders: No Hx Psychiatric Problems: Yes Hx Miscellaneous Medical Probl: Yes (GT, tracheostomy tube placement) Hx Alcohol Use: Yes (occasional) Hx Substance Use: Yes Hx Tobacco Use: No Smoking Status: Never smoker FmHx Family History: No diabetes, No coronary disease, No other Physical Exam Physical Exam GENERAL: The patient is well-appearing, well-nourished, in no acute distress CHEST: Clear to auscultation bilaterally. There are no rales, wheezes or rhonchi. HEART: Regular rate and rhythm. No murmurs, clicks, rubs or gallops. EXTREMITIES: Equal pulses bilaterally. There is no peripheral clubbing, cyanosis or edema. No focal swelling or erythema. Full range of motion. Grossly neurovascularly intact. NEUROLOGIC: Alert and oriented. Cranial nerves II through XII intact. Motor strength in all 4 extremities with 5 out of 5 strength. Sensation grossly intact. Normal speech and gait. SKIN: There is no apparent rash or petechiae. The skin is warm and dry. Results 24 hrs Current Medications Medications Dose Sig/Karl Start Time Status Last (Trade) Ordered Route PRN Stop Time Admin Dose Reason Admin Ketorolac 60 mg ONCE STAT 09/05/18 DC 09/05/18 Tromethamine IM 14:37 14:46 (Toradol) 09/05/18 14:39 Diazepam 5 mg ONCE ONCE 09/05/18 DC 09/05/18 (Valium) PO 15:00 14:46 09/05/18 15:01 10 mg ONCE ONCE 09/05/18 DC 09/05/18 Dexamethasone IM 15:00 14:46 (Decadron) 09/05/18 15:01 Procedures/MDM DIAGNOSTIC IMAGING REPORT Patient: JIMMY MCKEON : 1970 Age: 47 Sex: M MR #: [id number] DOS: 09/05/18 1437 Ordering MD: SULEMA PENA PA-C Location: [facility] Room/Bed: PROCEDURE: XR Hip. CLINICAL INDICATION: Left hip pain TECHNIQUE: AP and frog lateral views of the left hip were performed. COMPARISON: None. FINDINGS: No fracture or dislocation is identified. No significant soft tissue swelling is noted. No radiopaque foreign body is identified. IMPRESSION: 1. No acute fracture or dislocation. DIAGNOSTIC IMAGING REPORT Patient: JIMMY MCKEON : 1970 Age: 47 Sex: M MR #: [id number] DOS: 09/05/18 1437 Ordering MD: SULEMA PENA PA-C Location: [facility] Room/Bed: PROCEDURE: XR Lumbar Spine. CLINICAL INDICATION: Low back pain. TECHNIQUE: Three views of the lumbar spine are available for review COMPARISON: None available FINDINGS: There is straightening of the normal lumbar lordosis. Alignment is intact. No acute fracture or dislocation is seen. The vertebral body heights are preserved. There are mild to moderate discogenic disease and facet arthropathy at L5-S1. IMPRESSION: 1. No acute fracture or dislocation. 2. Mild to moderate discogenic disease and facet arthropathy at L5-S1. 3. Straightening of the normal lumbar lordosis. MDM: 47-year-old male presenting with pain. I have low suspicion for acute fracture dislocation. I have low suspicion for tendon or ligament injury. I low suspicion for muscular skeletal neurovascular deficit. Patient is discharged with strict ER precautions and told to follow-up with primary care within 1 to 2 days for close evaluation. Patient is told symptoms change or worsen to return the ER immediately. All questions answered at discharge Departure Diagnosis: Primary Impression: Hip pain Condition: Stable Patient Instructions: How Your Hip Works Referrals: COMMUNITY CLINICS YOU HAVE RECEIVED A MEDICAL SCREENING EXAM AND THE RESULTS INDICATE THAT YOU DO NOT HAVE A CONDITION THAT REQUIRES URGENT TREATMENT IN THE EMERGENCY DEPARTMENT. FURTHER EVALUATION AND TREATMENT OF YOUR CONDITION CAN WAIT UNTIL YOU ARE SEEN IN YOUR DOCTORS OFFICE WITHIN THE NEXT 1-2 DAYS. IT IS YOUR RESPONSIBILITY TO MAKE AN APPOINTMENT FOR FOLOW-UP CARE. IF YOU HAVE A PRIMARY DOCTOR --you should call your primary doctor and schedule an appointment IF YOU DO NOT HAVE A PRIMARY DOCTOR YOU CAN CALL OUR PHYSICIAN REFERRAL HOTLINE AT IF YOU CAN NOT AFFORD TO SEE A PHYSICIAN YOU CAN CHOSE FROM THE FOLLOWING [facility] CLINICS [facility] [address] [facility]. [facility] [address] [facility] [address] [facility] [facility] [address] [facility]. [facility] [address] [facility]. [facility]. [address] Additional Instructions: FOLLOW UP WITH YOUR PRIMARY CARE PHYSICIAN TOMORROW.Return to this facility if you are not improving as expected. CONRAD PENA PA-C Sep 13, 2018 15:49
== END 2018-09-05 15:55 | disposition home or self-care (01) ==
LOC: FTE 13:40
DX: M25.552 Pain in left hip (principal)
CPT/HCPCS: 72100; 73510; 96372; J1100; J1885; Z7502; Z7610